=== PATIENT | female | born 1935 | race Caucasian/White ===

== ENCOUNTER 2016-10-20 00:31 | Emergency (ER) | payer OTHER, BC ==
[~2016-10-20] VITALS: Ht 157.5 cm; Wt 82.3 kg
[2016-10-20] VITALS (7 sets, daily range): BP systolic 144–182; BP diastolic 81–106; PULSE 92–100; TEMP 36.4–36.7; O2SAT 95–98; Ht 157.5 cm; Wt 82.3 kg
[~2016-10-20 00:31] MED LIST: ADVIN10/60 INH; ALBU1AER9; AMB10 PO; ASPCH81 PO; ATV5X PO; BUPR150T47 PO; ERGO1CAP35 PO; IBAN150T PO; MECL1TAB42 PO; NRV5 PO; ONDA4TAB46 PO; OXYC-57 PO; PRLSR20 PO; SIMV20TA2 PO; WARF2TAB PO; [UNRECOGNIZED DRUG - OTHER] PO
[2016-10-20] MEDS ORDERED: SODIUM CHLORIDE 0.9% 1000ML 1,000 ML IV STA (00:35)
[2016-10-20] MEDS ORDERED: ONDANSETRON INJ 2 MG/ML 2 ML VIAL IV STA (00:35)
[2016-10-20] MEDS ORDERED: HYDROmorphone INJ 0.5 MG/0.5 ML SYR IV STA ×2 (00:35→02:08)
--- NOTE | 2016-10-20 00:54 | EMERGENCY ROOM VISIT NOTE ---
History Report prepared by Cheryl: Johanna Silvestre Under the Supervision of: Dr. Ceasar Crawford M.D. First contact with patient: 00:34 Chief Complaint: FALL Stated Complaint: FALL/HIP PAIN History of Present Illness The patient is an 81 year old female who presents to the Emergency Room with complaints of a sudden fall that occurred prior to arrival. The patient states that she is unsure how she fell, but states that she could not get back up after the fall. She states that she had a left hip replacement done in May. The patient notes left hip and left leg pain since the fall. She denies any chest pain, abdominal pain, head trauma, or loss of consciousness. Source of History: patient Onset: prior to arrival Position: other (global) Quality: other (fall) Timing: other (sudden) Associated Symptoms: No LOC, No abdominal pain, No chest pain Note: Associated Symptoms: Left hip and left leg pain Review of Systems See HPI for pertinent positives & negatives. A total of 10 systems reviewed and were otherwise negative. Past Medical & Surgical Medical Problems: (1) Aortic valve stenosis (2) Carotid stenosis (3) CKD (chronic kidney disease), stage III (4) COPD (chronic obstructive pulmonary disease) (5) Dyslipidemia (6) GERD (gastroesophageal reflux disease) (7) HTN (hypertension) (8) Osteoporosis Surgical Problems: (1) H/O hernia repair (2) H/O laminectomy (3) History of cataract surgery (4) History of hysterectomy (5) S/P cholecystectomy (6) S/P tonsillectomy and adenoidectomy (7) Status post total hip replacement, right Family History Noncontributory secondary to age Social History Smoking Status: Former Smoker Alcohol Use: none Marital Status: Housing Status: lives with significant other Occupation Status: retired Current/Historical Medications Scheduled Amlodipine (Norvasc), 5 MG PO DAILY Aspirin (Aspirin Ec), 81 MG PO DAILY Azithromycin (Zithromax Z-Kiet), PO UD Bupropion (Wellbutrin Sr), 150 MG PO BID Ergocalciferol (Vitamin D 99284 Unit), 50,000 UNIT PO WK Fluticasone Prop/Salmeterol (Advair Diskus 100/50 60 Dose), 1 PUFFS INH BID Ibandronate Sodium (Boniva), 150 MG PO MONTHLY Multiple Vitamins W/ Minerals (Preservision Areds 2), 1 DOSE PO DAILY Omeprazole (Prilosec), 20 MG PO DAILY Simvastatin (Zocor), 20 MG PO QPM Scheduled PRN Albuterol Hfa (Ventolin Hfa), 2 PUFFS INH Q4 PRN for COUGH/SOB/WHEEZE Amoxicillin (Amoxil), 4 CAP PO UD PRN for 1 HR PRIOR TO DENTAL EXAM Diclofenac Sod (Voltaren), 1 APPLN TOP BID PRN for Pain Hydrocodone/Acetaminophen 5MG/325MG ([place] 5MG/325MG), 1-2 TABLETS PO Q6 PRN for Pain Lorazepam (Lorazepam), 1-2 TABS PO TID PRN for Anxiety Meclizine Hcl (Meclizine Hcl), 25 MG PO TID PRN for Dizziness or Vertigo Ondansetron Hcl (Zofran), 4 MG PO BID PRN for Nausea Zolpidem Tartrate (Ambien), 10 MG PO HS PRN for Sleep Allergies Coded Allergies: Sulfa Antibiotics (Verified Allergy, Mild, "SULFA DRUGS": UNKNOWN, 10/20/16) Atenolol (Verified Allergy, Unknown, RASH AND ITCHING-TAKES TOPROL-XL AT HOME, 10/20/16) Lisinopril (Unverified Adverse Reaction, Unknown, COUGH, 10/20/16) Physical Exam Vital Signs Date Time Temp Pulse Resp B/P Pulse Ox O2 Delivery O2 Flow Rate FiO2 10/20/16 06:07 88 10/20/16 05:33 90 18 104/71 95 Nasal Cannula 4.0 10/20/16 03:23 101 20 133/91 93 Nasal Cannula 4.0 10/20/16 02:58 100 10/20/16 02:30 36.4 98 18 144/85 97 Nasal Cannula 4.0 10/20/16 02:28 94 16 144/85 98 Nasal Cannula 4.0 10/20/16 02:23 94 14 153/106 98 Nasal Cannula 10/20/16 02:20 10/20/16 02:17 100 14 147/99 97 Nasal Cannula 4.0 10/20/16 02:02 36.7 96 20 174/81 95 Nasal Cannula 4.0 10/20/16 01:58 96 18 159/87 94 Nasal Cannula 2.0 10/20/16 00:46 36.7 88 18 210/108 93 Room Air 10/20/16 00:45 87 Physical Exam GENERAL: Patient is in moderate distress, uncomfortable appearing. HEENT: No acute trauma, normocephalic atraumatic, mucous membranes moist, no nasal congestion, no scleral icterus. NECK: No stridor, no adenopathy, no meningismus, trachea is midline. LUNGS: No dyspnea. Clear to auscultation and equal bilaterally. No wheeze, no rhonchi. HEART: Regular rate and rhythm. No murmurs, rubs, gallops appreciated. ABDOMEN: Soft, nontender, bowel sounds positive, no masses appreciated, no peritonitis. BACK: No midline tenderness, no CVA tenderness EXTREMITIES: Shortened, internally rotated left leg. Tenderness to palpation of mid left thigh. Strong pulses bilateral feet. Mild tenderness over left hip. NEUROLOGIC: Alert and oriented, no acute motor or sensory deficits, no focal weakness, cranial nerves grossly intact. SKIN: No rash, no jaundice, no diaphoresis., Medical Decision & Procedures ER Provider Diagnostic Interpretation: 3 view left femur: prosthetic hip dislocation, no fracture, no foreign body other than hip. 1 view pelvis. No fracture, left hip dislocation 1 view chest: No effusion, no infiltrate, mildly enlarged cardiac border, similar to previous chest x-ray. Laboratory Results 10/20/16 00:42 Red Blood Count 4.59, Mean Corpuscular Volume 93.5, Mean Corpuscular Hemoglobin 30.5, Mean Corpuscular Hemoglobin Concent 32.6, Mean Platelet Volume 10.9, Neutrophils (%) (Auto) 63.3, Lymphocytes (%) (Auto) 16.9, Monocytes (%) (Auto) 13.7, Eosinophils (%) (Auto) 5.2, Basophils (%) (Auto) 0.6, Neutrophils # (Auto ) 4.24, Lymphocytes # (Auto) 1.13, Monocytes # (Auto) 0.92, Eosinophils # (Auto ) 0.35, Basophils # (Auto) 0.04 10/20/16 00:42 Test 10/20/16 00:42 White Blood Count 6.70 K/uL (4.8-10.8) Red Blood Count 4.59 M/uL (4.2-5.4) Hemoglobin 14.0 g/dL (12.0-16.0) Hematocrit 42.9 % (37-47) Mean Corpuscular Volume 93.5 fL (80-100) Mean Corpuscular Hemoglobin 30.5 pg (25-34) Mean Corpuscular Hemoglobin Concent 32.6 g/dl (32-36) Platelet Count 163 K/uL (130-400) Mean Platelet Volume 10.9 fL (7.4-10.4) Neutrophils (%) (Auto) 63.3 % Lymphocytes (%) (Auto) 16.9 % Monocytes (%) (Auto) 13.7 % Eosinophils (%) (Auto) 5.2 % Basophils (%) (Auto) 0.6 % Neutrophils # (Auto) 4.24 K/uL (1.4-6.5) Lymphocytes # (Auto) 1.13 K/uL (1.2-3.4) Monocytes # (Auto) 0.92 K/uL (0.11-0.59) Eosinophils # (Auto) 0.35 K/uL (0-0.5) Basophils # (Auto) 0.04 K/uL (0-0.2) RDW Standard Deviation 50.0 fL (36.4-46.3) RDW Coefficient of Variation 14.7 % (11.5-14.5) Immature Granulocyte % (Auto) 0.3 % Immature Granulocyte # (Auto) 0.02 K/uL (0.00-0.02) Prothrombin Time 10.3 SECONDS (9.0-12.0) Prothromb Time International Ratio 1.0 (0.9-1.1) Activated Partial Thromboplast Time 25.4 SECONDS (21.0-31.0) Partial Thromboplastin Ratio 1.0 Anion Gap 8.0 mmol/L (3-11) Est Creatinine Clear Calc Drug Dose 34.3 ml/min Estimated GFR () 44.9 Estimated GFR (Non- 38.7 BUN/Creatinine Ratio 20.7 (10-20) Calcium Level 8.9 mg/dl (8.5-10.1) Troponin I < 0.015 ng/ml (0-0.045) Laboratory results as reviewed by me. Medications Administered Medications (Trade) Dose Ordered Sig/John Route Start Time Stop Time Status Last Admin Dose Admin Hydromorphone HCl (Dilaudid Inj) 0.5 mg NOW STAT IV 10/20/16 00:35 10/20/16 00:38 DC 10/20/16 00:56 0.5 MG Ondansetron HCl 4 mg 4 mg NOW STAT IV 10/20/16 00:35 10/20/16 00:38 DC 10/20/16 00:55 4 MG Sodium Chloride (Nss 1000ml) 1,000 ml @ 999 mls/hr Q1H1M STAT IV 10/20/16 00:35 10/20/16 01:35 DC 10/20/16 00:56 999 MLS/HR Hydromorphone HCl (Dilaudid Inj) 1 mg NOW STAT IV 10/20/16 01:28 10/20/16 01:29 DC 10/20/16 01:32 1 MG Propofol (Diprivan Iv Emulsion 20ml Vial) 200 mg STK-MED ONCE IV 10/20/16 01:57 10/20/16 01:58 DC 10/20/16 02:18 50 MG Hydromorphone HCl (Dilaudid Inj) 0.5 mg NOW STAT IV 10/20/16 02:08 10/20/16 02:09 DC 10/20/16 02:13 0.5 MG Oxycodone HCl (Roxicodone Immediate Rel 5MG Home Pack) 1 homepack UD ONCE PO 10/20/16 07:00 10/20/16 07:01 DC 10/20/16 06:52 1 HOMEPACK Procedure Procedural Sedation Indication: Left prosthetic hip dislocation. Last Ate: 5pm - >8hrs ago Previous issues with sedation: none Snore: mild Emergent: Yes ASA: 2 Mallampati: 2+ Dentures: none Time Out: 02:18am Time Recovered: 02:29 Total time: Including pre-sedation and post 30 minutes. Written consent was obtained after the risks and benefits were explained to the patient, including, but not limited to aspiration, allergic reaction, breathing difficulties, cardiac complications, vomiting, pain, event recall, bleeding, and /or infection. Pre-sedation examination and paperwork completed. The patient was on 100% oxygen via NRB prior to the procedure. Continuos end tidal CO2 monitoring, pulse oximetry, and cardiac monitoring were utilized. Suction, airway equipment, medications, respiratory equipment, and appropriate personnel were prepared prior to the initiation of the procedure. A time out was taken. Sedation was achieved utilizing 50 mg of propofol. After I observed the patient had reached the appropriate level of sedation the main procedure was performed without complication. Sedation was discontinued and the monitoring continued. The patient recovered quickly from the effects of the medication without complication or adverse event. Discussed at length post sedation instructions with patient. There were no complications during procedure. ED Course 0033: The patient was evaluated in room B2. A complete history and physical exam was performed. 0035: Ordered Sodium Chloride 1000 ml @ 999 mls/hr IV, Zofran Inj 4 mg IV, Dilaudid Inj 0.5 mg IV. 0128: Ordered Dilaudid Inj 1 mg IV. 0146: I discussed the patients case with Dr. Matosn, Orthopedics. He states that he will take care of the patient. 0150: I reevaluated the patient and she is doing well. She verbalized agreement with the treatment plan. 0157: Ordered Propofol 200 mg IV. 0208: Ordered Dilaudid Inj 0.5 mg IV. 0215: The patient was moved into B1 to have the hip reduction performed. I performed the conscious sedation at this time while Dr. Matson, Orthopedics reduced the patients hip. See procedure note for further detail. 0237: I reevaluated the patient and she is feeling much better and in no distress. 0646: I reevaluated the patient. She is awake and alert. I discussed all the exam findings with her and I discussed the treatment plan. She verbalized complete understanding and agreement. She is happy to go home whenever her arrives. Dr. Matson agrees that the patient is okay to go home after evaluation. 0700: Ordered Oxycodone HCl 1 homepack PO. Medical Decision Differential: Fracture, Dislocation, Cellulitis, Septic Joint, Ligamentous Injury, Effusion, DVT, amongst other pathologies entertained. 81 yr old female arrives with acute left thigh pain and clear deformity at hip s /p fall this evening. No other injuries. Labs/Cxr/ekg clear. Left prosthetic hip dislocation by imaging without other fracture. Last ate 8+ hours ago. No previous sedation issues. Discussed at length sedation risks and she agrees. Dr Matson in to see patient and did left hip reduction while I sedated patient. No complications during sedation. She was awake, alert and talking post sedation without issue and feeling much improved. Recovered in ED overnight as patient has no ride home. No issues overnight and breathing comfortable. Discussed outpatient follow up with Ortho in the next week. Consults Time Called: 013 Consulting Physician: Dr. Matson, Orthopedics Returned Call: 0146 I discussed the patients case with Dr. Matson, Orthopedics. He states that he will take care of the patient. Impression Primary Impression: Hip dislocation, left Additional Impressions: Fall Procedural Sedation Scribe Attestation The scribe's documentation has been prepared under my direction and personally reviewed by me in its entirety. I confirm that the note above accurately reflects all work, treatment, procedures, and medical decision making performed by me. Departure Information Dispostion Home / Self-Care Referrals Klaus Douglas M.D. (PCP) Forms HOME CARE DOCUMENTATION FORM, IMPORTANT VISIT INFORMATION Patient Instructions ED Hip Replace Dislocation Reduc, My [facility], Sedation Procedural Additional Instructions Your left hip was placed back without difficulty. Please follow up with Dr Mckeon in 1 week. Call his office for appointment. You have received a narcotic pain medication to have at home. These medications may cause drowsiness and should not be used with other sedative medications. If taken plan to rest and sleep. Do not drive, drink alcohol, perform dangerous activities, nor make important decisions after taking these medications. [facility]CI use or inappropriate use may lead to addiction. Problem Qualifiers Primary Impression: Hip dislocation, left Encounter type: initial encounter Qualified Codes: S73.005A - Unspecified dislocation of left hip, initial encounter Additional Impressions: Fall Encounter type: initial encounter Qualified Codes: W19.XXXA - Unspecified fall, initial encounter
[2016-10-20 00:57] LABS: BASO % 0.6 %; BASO ABS # 0.04 K/uL (0-0.2); COMPLETE YES; EOS % 5.2 %; HEMATOCRIT 42.9 % (37-47); IG% 0.3 %; LYMPH % 16.9 %; LYMPH ABS # 1.13 K/uL (1.2-3.4); MEAN CELL VOLUME 93.5 fL (80-100); MEAN CORPUSCULAR HEMOGLOBIN 30.5 pg (25-34); MEAN CORPUSCULAR HGB CONC 32.6 g/dl (32-36); MEAN PLATELET VOLUME 10.9 fL (7.4-10.4); MONO % 13.7 %; NEUT % 63.3 %; PLATELET COUNT 163 K/uL (130-400); RED BLOOD COUNT 4.59 M/uL (4.2-5.4)
[2016-10-20 01:07] LABS: PROTHROMBIN TIME (PATIENT) 10.3 SECONDS (9.0-12.0)
[2016-10-20 01:14] LABS: BLOOD UREA NITROGEN 27 mg/dl (7-18); BUN/CREATININE RATIO 20.7 (10-20); CALCIUM 8.9 mg/dl (8.5-10.1); CARBON DIOXIDE 29 mmol/L (21-32); CHLORIDE 107 mmol/L (98-107); GLUCOSE 136 mg/dl (70-99); POTASSIUM 4.2 mmol/L (3.5-5.1); SODIUM 144 mmol/L (136-145)
[2016-10-20] MEDS ORDERED: HYDROmorphone INJ 1 MG/ML SYR IV STA (01:28)
[2016-10-20] MEDS ORDERED: PROPOFOL IV EMULSION 10 MG/ML 100 ML VIAL IV ONE (01:55)
[2016-10-20] MEDS ORDERED: PROPOFOL IV EMULSION 10 MG/ML 20 ML VIAL IV ONE (01:57)
[2016-10-20] MEDS ORDERED: VNTHFA/IN INH (01:58)
[2016-10-20] MEDS ORDERED: ZOLP10TA PO (01:59)
[2016-10-20] MEDS ORDERED: ERGO500037 PO (01:59)
[2016-10-20] MEDS ORDERED: BUPR-79 PO (01:59)
[2016-10-20] MEDS ORDERED: ASPI81TA28 PO (01:59)
[2016-10-20] MEDS ORDERED: AMLO-114 PO (01:59)
[2016-10-20] MEDS ORDERED: HYDR-5688 PO (02:00)
[2016-10-20] MEDS ORDERED: MULT60CA PO (02:03)
[2016-10-20] MEDS ORDERED: AZITTAB PO (02:04)
[2016-10-20] MEDS ORDERED: AMOX500C3 PO (02:05)
[2016-10-20] MEDS ORDERED: VLTG TOP (02:06)
--- NOTE | 2016-10-20 02:40 | ORTHOPEDIC CONSULTATION ---
DATE OF CONSULTATION: 10/20/2016 I was asked to see this patient despite not being on-call. The patient of mine who tripped and fell at home who sustained a closed dislocation on her left total hip replacement. She was in her usual state of good health prior to that and had no issues with any prior instability. She is 81 years old. She states that she fell to the floor and had difficulty getting up, tried to rollover and swung her leg and pushed off and felt her leg dislocate. She does have a spine fusion as well so most of her movement comes through her hip. PAST MEDICAL HISTORY: Remarkable for aortic valve stenosis, carotid stenosis, chronic kidney disease, COPD, dyslipidemia, GERD, hypertension, history of hernia surgery, history of back fusion, cataract surgery, hysterectomy, cholecystectomy, bilateral hip placements, tonsillectomy and adenoidectomy. FAMILY HISTORY: Noncontributory. SOCIAL HISTORY: Reveals that she is a smoker, does not use alcohol. She is . She was transported by ambulance. PREADMISSION MEDICATIONS: Include Advair Diskus, Boniva, Prilosec, Zocor, and Coumadin. P.r.n. is Ventolin, lorazepam, meclizine and Zofran. ALLERGIES: SULFA, ATENOLOL, LISINOPRIL. PHYSICAL EXAMINATION: VITAL SIGNS: Stable. ORTHOPEDIC: Exam reveals femoral sciatic nerve to be intact. Hip is dislocated superolaterally. SKIN: Healthy. IMAGING: X-rays are reviewed revealing no obvious fracture. ASSESSMENT: Closed traumatic induced hip dislocation from fall at home. At this point in time, we will try conscious sedation per ER physician and closed reduction by me. Consent obtained on the conscious sedation permit, added closed reduction to that visualized with ED nurse.
--- NOTE | 2016-10-20 02:43 | PROGRESS NOTE ---
DATE: 10/20/2016 Makenna Harris is in the ER. Under conscious sedation by ER attending, Dr. Crawford, the left hip was easily reduced by longitudinal traction, adduction, internal rotation, and then it reduced and then external rotation. The hip was stable to 90 degrees abduction, internal and external rotation, log rolling. Post-reduction AP pelvis and hips revealed concentric reduction of the implant. At this point in time, due to her age and due to her comorbidities, she will be observed in the ER until the morning. Will, however, have the knee immobilizer for several weeks and then follow up with me in the office in a week. Weightbearing to tolerance. Pillow between the knees.
[2016-10-20] MEDS ORDERED: OXYCODONE IR HOME PACK PO ONE (07:00)
--- NOTE | 2016-10-20 07:13 | PROGRESS NOTE ---
DATE: 10/20/2016 HISTORY OF PRESENT ILLNESS: The patient seen in the ER roughly 6:45 a.m. At that point in time, she was resting comfortably. She notes she has no major hip pain, has some minor achiness around the muscles. Neurovascularly denies any numbness or tingling. She denies shortness of breath, fever, chills, nausea or vomiting. PHYSICAL EXAMINATION: Vital signs are stable. She is afebrile. Neurovascular check femoral sciatic nerve is excellent. Hip range of motion is good, active and passive. The hip is stable. ASSESSMENT AND PLAN: Traumatic induced left total hip arthroplasty dislocation. At this point in time, there is no obvious fracture. Hip appears to be stable. She will be discharged with a knee immobilizer and sleep with a pillow between her knees, can be weightbearing to tolerance. She will follow up with me in roughly 2 weeks. The patient advised concerning any issues to give us a call. The patient is upset with herself for tripping and falling; however, at this point in time, I told her that things look good and hopefully she will not have another episode as long as she is careful. BENNIE
--- NOTE | 2016-10-20 07:29 | DIAGNOSTIC IMAGING REPORT ---
SINGLE VIEW CHEST CLINICAL HISTORY: Fall. FINDINGS: An AP, portable, supine chest radiograph is compared to study dated 05/25/2016. The examination is degraded by portable technique and patient rotation. The cardiomediastinal silhouette is unremarkable. There is atherosclerotic calcification of the thoracic aorta. Chronic interstitial thickening is similar to previous. There is mild bibasilar atelectasis. No airspace consolidation or large pleural effusion is seen. No pneumothorax is identified. The skeletal structures are osteopenic. The bony thorax is grossly intact. IMPRESSION: No acute cardiopulmonary abnormality. Electronically signed by: Riley Hernandez M.D. 10/20/2016 7:28 AM Dictated Date/Time: 10/20/2016 7:27 AM
--- NOTE | 2016-10-20 08:07 | DIAGNOSTIC IMAGING REPORT ---
PELVIS 1 OR 2 VIEW ROUTINE CLINICAL HISTORY: left hip pain trauma COMPARISON STUDY: 06/06/2016 FINDINGS: There are postsurgical changes in the lumbar spine with evidence of a prior laminectomy and spinal fusion. There are bilateral total hip arthroplasties. There is superior dislocation of the left femoral prosthesis. IMPRESSION: Dislocated total left hip arthroplasty. Electronically signed by: Samuel Gonzalez M.D. 10/20/2016 8:05 AM Dictated Date/Time: 10/20/2016 8:04 AM
--- NOTE | 2016-10-20 08:11 | DIAGNOSTIC IMAGING REPORT ---
PELVIS 1 OR 2 VIEW ROUTINE CLINICAL HISTORY: Left hip dislocation status post reduction COMPARISON STUDY: 10/20/2016 FINDINGS: There are postsurgical changes of bilateral total hip arthroplasties. There is been interval reduction of the previous identified left hip dislocation. Postsurgical changes are present within the lumbar spine. IMPRESSION: Interval reduction of the previously identified dislocated left hip arthroplasty Electronically signed by: Samuel Gonzalez M.D. 10/20/2016 8:10 AM Dictated Date/Time: 10/20/2016 8:09 AM
--- NOTE | 2016-10-20 08:31 | DIAGNOSTIC IMAGING REPORT ---
LEFT FEMUR 2 VIEWS ROUTINE CLINICAL HISTORY: Left thigh pain status post trauma COMPARISON: AP pelvis dated 08/07/2016 DISCUSSION: There is superior dislocation of a total left hip arthroplasty. No acute femoral fractures are visualized. IMPRESSION: Dislocated total left hip arthroplasty Electronically signed by: Samuel Gonzalez M.D. 10/20/2016 8:30 AM Dictated Date/Time: 10/20/2016 8:28 AM
== END 2016-10-20 08:32 | disposition home or self-care (01) ==
LOC: EDBD 00:31 → C.EDB 00:34
DX: S73.005A Unspecified dislocation of left hip, initial encounter (principal); W19.XXXA Unspecified fall, initial encounter; I35.0 Nonrheumatic aortic (valve) stenosis; N18.3 Chronic kidney disease, stage 3 (moderate); J44.9 Chronic obstructive pulmonary disease, unspecified; I12.9 Hypertensive chronic kidney disease with stage 1 through stage 4 chronic kidney disease, or unspecified chronic kidney disease; K21.9 Gastro-esophageal reflux disease without esophagitis; M81.0 Age-related osteoporosis without current pathological fracture; Z96.641 Presence of right artificial hip joint; Z90.49 Acquired absence of other specified parts of digestive tract; Z87.891 Personal history of nicotine dependence; Z79.82 Long term (current) use of aspirin

== ENCOUNTER → 2017-01-15 | Outpatient (CLI) | payer OTHER, BC ==
[~2017-01-15] MED LIST changes: -ALBU1AER9; -AMB10 PO; +AMLO-114 PO; +AMOX500C3 PO; -ASPCH81 PO; +ASPI81TA28 PO; +AZITTAB PO; +BUPR-79 PO; -BUPR150T47 PO; -ERGO1CAP35 PO; +ERGO500037 PO; +HYDR-5688 PO; +MULT60CA PO; -NRV5 PO; -OXYC-57 PO; +VLTG TOP; +VNTHFA/IN INH; -WARF2TAB PO; +ZOLP10TA PO; -[UNRECOGNIZED DRUG - OTHER] PO
== END | disposition home or self-care (01) ==
LOC: C.RDSM 10:30
PROVIDERS: ATTEND Physical Medicine & Rehabilitation Sports Medicine
DX: Z96.643 Presence of artificial hip joint, bilateral (principal)

== ENCOUNTER → 2017-01-30 | Outpatient (CLI) | payer OTHER, BC ==
--- NOTE | 2017-01-30 16:19 | MAMMOGRAPHY REPORT ---
BILATERAL DIGITAL SCREENING MAMMOGRAM WITH CAD: 01/30/2017 CLINICAL HISTORY: Routine screening. Patient has no complaints. TECHNIQUE: Bilateral CC and MLO views were obtained. Current study was also evaluated with a Comput er Aided Detection (CAD) system. COMPARISON: Comparison is made to exams dated: 01/28/2016 mammogram, 01/26/2015 mammogram, 01/20/2014 m ammogram, 01/09/2012 mammogram, 01/04/2011 mammogram, and 12/31/2009 mammogram - [facility]. BREAST COMPOSITION: There are scattered areas of fibroglandular density in both breasts. FINDINGS: The parenchymal pattern is similar to prior mammograms. There are stable benign-appearin g calcifications within the right breast. No developing mass, architectural distortion or cluster o f suspicious microcalcifications is seen in either breast. IMPRESSION: ACR BI-RADS CATEGORY 2: BENIGN There is no mammographic evidence of malignancy. A 1 year screening mammogram is recommended. The p atient will receive written notification of the results. Approximately 10% of breast cancers are not detected with mammography. A negative mammographic repor t should not delay biopsy if a clinically suggestive mass is present. Cinthia Salamanca M.D. ay/:01/30/2017 15:53:55 Veneer Redrier: Eleonora Irizarry, [facility] letter sent: Normal 1/2 BI-RADS Code: ACR BI-RADS Category 2: Benign
== END | disposition home or self-care (01) ==
LOC: C.MAMM 08:56
PROVIDERS: ATTEND Family Medicine
DX: Z12.31 Encounter for screening mammogram for malignant neoplasm of breast (principal)

== ENCOUNTER → 2017-10-29 | Outpatient (CLI) | payer OTHER, BC | END | disposition home or self-care (01) | LOC: C.RDSM 08:20 | PROVIDERS: ATTEND Physical Medicine & Rehabilitation Sports Medicine | DX: Z47.1 Aftercare following joint replacement surgery (principal); Z96.643 Presence of artificial hip joint, bilateral ==

== ENCOUNTER → 2017-12-04 | Outpatient (CLI) | payer OTHER, BC ==
--- NOTE | 2017-12-04 10:25 | DIAGNOSTIC IMAGING REPORT ---
L PELVIS UNILATERAL HIP 1 VIEW CLINICAL HISTORY: LEFT HIP PAIN pain COMPARISON: 08/22/2016 DISCUSSION: Patient has bilateral total hip arthroplasties. AP projection shows good contact between metallic prosthesis and underlying bone. The abduction view of the left hip suggests a subtle lucency about the femoral prosthetic. This is minimally increased in the prior study of 08/22/2016. This potentially indicates early partial loosening. There is no evidence for soft tissue swelling. IMPRESSION: Total left hip prosthetic demonstrate a slight increase in lucency about the prosthetic in abduction view. Possibility of early loosening should be considered. The above report was generated using voice recognition software. It may contain grammatical, syntax or spelling errors. Electronically signed by: Olu Gotti M.D. 12/04/2017 10:23 AM Dictated Date/Time: 12/04/2017 10:21 AM
== END | disposition home or self-care (01) ==
LOC: C.RDSM 10:11
PROVIDERS: ATTEND Physician Assistant
DX: Z96.643 Presence of artificial hip joint, bilateral (principal)

== ENCOUNTER → 2018-02-01 | Outpatient (CLI) | payer OTHER, BC ==
--- NOTE | 2018-02-01 15:14 | MAMMOGRAPHY REPORT ---
BILATERAL DIGITAL SCREENING MAMMOGRAM TOMOSYNTHESIS WITH CAD: 02/01/2018 CLINICAL HISTORY: Routine screening. Patient has no complaints. TECHNIQUE: Breast tomosynthesis in addition to standard 2D mammography was performed. Current study was also evaluated with a Computer Aided Detection (CAD) system. COMPARISON: Comparison is made to exams dated: 01/30/2017 mammogram, 01/28/2016 mammogram, 01/26/2015 m ammogram, 01/20/2014 mammogram, 01/14/2013 mammogram, and 01/09/2012 mammogram - [facility]. BREAST COMPOSITION: There are scattered areas of fibroglandular density in both breasts. FINDINGS: No suspicious masses, calcifications, or areas of architectural distortion are noted in ei ther breast. There has been no significant interval change compared to prior exams. Bilateral benign -appearing calcifications are not significantly changed. IMPRESSION: ACR BI-RADS CATEGORY 2: BENIGN There is no mammographic evidence of malignancy. A 1 year screening mammogram is recommended. The pa tient will receive written notification of the results. Approximately 10% of breast cancers are not detected with mammography. A negative mammographic report should not delay biopsy if a clinically suggestive mass is present. Saray Garcia M.D. /:02/01/2018 12:29:35 Shirt Ironer: Love STERLING)(M), [facility] letter sent: Normal 1/2 BI-RADS Code: ACR BI-RADS Category 2: Benign
== END | disposition home or self-care (01) ==
LOC: C.MAMM 08:55
PROVIDERS: ATTEND Family Medicine
DX: Z12.31 Encounter for screening mammogram for malignant neoplasm of breast (principal)

== ENCOUNTER 2018-12-31 21:39 | Observation (INO) ==
[2018-12-31] MEDS ORDERED: NITROGLYCERIN SL 0.4 MG/TAB TAB ONE (22:23)
--- NOTE | 2018-12-31 22:57 | XRay Report ---
SINGLE VIEW CHEST CLINICAL HISTORY: Atypical chest pain. FINDINGS: An AP, portable, upright chest radiograph is compared to study dated 03/05/2018 and correlat ed with chest CT dated 11/04/2018. The examination is degraded by portable technique and patient rotat ion. The cardiomediastinal silhouette is unremarkable, noting atherosclerotic calcification of the t horacic aorta. Chronic interstitial thickening is similar to previous. Patchy airspace consolidation is seen at both lung bases. There is mild elevation of left hemidiaphragm. No large pleural effusion is identified. No pneumothorax is seen. The skeletal structures are osteopenic. The bony thorax is gr ossly intact. IMPRESSION: Patchy airspace consolidation is seen at both lung bases. Correlate clinically for eviden ce of pneumonia/aspiration pneumonitis. Radiographic follow-up to resolution is recommended. Electronically signed by: Riley Hernandez M.D. 12/31/2018 10:55 PM
[2018-12-31 23:06] LABS: Basophils # (auto) 0.06 K/uL (0-0.2); Basophils % (auto) 0.7 %; Eosinophils # (auto) 0.22 K/uL (0-0.5); Eosinophils % (auto) 2.4 %; Hemoglobin 13.6 g/dL (12.0-16.0); Immature Granulocytes # (auto) 0.04 K/uL (0.00-0.02); Immature Granulocytes % (auto) 0.4 %; Lymphocytes # (auto) 1.07 K/uL (1.2-3.4); Lymphocytes % (auto) 11.8 %; Mean Corpuscular Hgb Conc 32.4 g/dL (32-36); Mean Corpuscular Volume 97.2 fL (80-100); Mean Platelet Volume 10.9 fL (7.4-10.4); Monocytes # (auto) 0.93 K/uL (0.11-0.59); Monocytes % (auto) 10.3 %; Neutrophils # (auto) 6.71 K/uL (1.4-6.5); Neutrophils % (auto) 74.4 %; Platelet Count 187 K/uL (130-400); RDW Coefficient of Variation 13.9 % (11.5-14.5); RDW Standard Deviation 49.7 fL (36.4-46.3); Red Blood Count 4.32 M/uL (4.2-5.4); White Blood Count 9.03 K/uL (4.8-10.8)
[2018-12-31 23:26] LABS: Alanine Aminotransferase 15 U/L (12-78); Albumin Level 3.3 gm/dl (3.4-5.0); Aspartate Aminotransferase 12 U/L (15-37); BUN Creatinine Ratio 18.5 (10-20); Blood Urea Nitrogen 28 mg/dl (7-18); Calcium 9.1 mg/dl (8.5-10.1); Carbon Dioxide 27 mmol/L (21-32); Chloride 110 mmol/L (98-107); Creatinine Clr Calc Pharmacy 28.6 ml/min; Est GFR (African American) 37.2; Est GFR (Non-African American) 32.1; Glucose 168 mg/dl (70-99); Potassium 4.5 mmol/L (3.5-5.1); Sodium 143 mmol/L (136-145)
[2018-12-31 23:30] LABS: Albumin Globulin Ratio 0.9 (0.9-2); Alkaline Phosphatase 91 U/L (45-117); Bilirubin,Total 0.2 mg/dl (0.2-1); Globulin 3.5 gm/dl (2.5-4.0); Total Protein 6.8 gm/dl (6.4-8.2); Troponin I < 0.015 ng/ml (0-0.045)
[2019-01-01] MEDS ORDERED: ONDANSETRON INJ 2 MG/ML 2 ML VIAL IV STA (00:33)
--- NOTE | 2019-01-01 00:37 | Emergency Department Note ---
Entered by Steph Diamond acting as a scribe for Vincenzo Gallego DO History of Present Illness General Chief complaint: Chest Pain Stated complaint: CHEST PAIN, SOB Time Seen by Provider: 12/31/18 22:10 Source: patient History of Present Illness Onset (ago): hour(s) 3 Location: chest Radiation: extremity (left upper) Pain Consistency: + intermittent Maximum Pain Intensity: 5 Associated symptoms: + diaphoresis, + nausea/vomiting (positive nausea; negative vomiting ) and + shortness of breath Treatments prior to arrival: other (breathing treatment) The patient is a 83 year old female who presents to the Emergency Room with complaints of intermittent chest pain that began at 1900, 3 hours prior to arrival. The patient states that during these episodes, her pain radiates to her left arm, and she has shortness of breath, sweating, and nausea. The patient states that she used a breathing treatment prior to arrival for her symptoms. She states that she takes a baby aspirin regularly, and states that she took one today. The patient states that she had a cardiac catheterization within the past few years. Home Medications Home Medications Medication Instructions Recorded Confirmed Type amlodipine 10 mg PO DAILY 12/31/18 12/31/18 History aspirin 81 mg PO DAILY 12/31/18 12/31/18 History cholecalciferol (vitamin D3) 1,000 unit PO DAILY 12/31/18 12/31/18 History [Vitamin D3] cholecalciferol (vitamin D3) 5,000 unit PO DAILY 12/31/18 12/31/18 History [Vitamin D3] furosemide [Lasix] 20 mg PO DAILY 12/31/18 12/31/18 History hydrocodone-acetaminophen 1 tab PO Q6H PRN 12/31/18 12/31/18 History ibandronate [Boniva] 150 mg PO MONTHLY 12/31/18 12/31/18 History ipratropium-albuterol 3 ml INHALATION QID 12/31/18 12/31/18 History ipratropium-albuterol [Combivent 1 puff INHALATION QID 12/31/18 12/31/18 History Respimat] lorazepam 0.5 mg PO TID PRN 12/31/18 12/31/18 History meclizine 25 mg PO TID PRN 12/31/18 12/31/18 History multivitamin 1 tab PO DAILY 12/31/18 12/31/18 History ondansetron HCl [Zofran] 4 mg PO TID PRN 12/31/18 12/31/18 History simvastatin [Zocor] 20 mg PO PM 12/31/18 12/31/18 History zolpidem [Ambien] 10 mg PO HS 12/31/18 12/31/18 History Allergies Allergy/AdvReac Type Severity Reaction Status Date / Time Sulfa (Sulfonamide Allergy Mild "SULFA Verified 03/05/18 20:55 Antibiotics) DRUGS": UNKNOWN atenolol Allergy Unknown RASH AND Verified 03/05/18 20:55 ITCHING-TAKES TOPROL-XL AT HOME lisinopril AdvReac Unknown COUGH Unverified 03/05/18 20:55 Past Med/Surg History Medical History GERD (gastroesophageal reflux disease) (Chronic) Carotid stenosis (Chronic) COPD (chronic obstructive pulmonary disease) (Chronic) Osteoporosis (Chronic) CKD (chronic kidney disease), stage III (Chronic) Dyslipidemia (Chronic) Aortic valve stenosis (Chronic) HTN (hypertension) (Chronic) Surgical History H/O laminectomy (Chronic) History of hysterectomy (Chronic) H/O hernia repair (Chronic) Status post total hip replacement, right (Chronic) History of cataract surgery (Chronic) S/P tonsillectomy and adenoidectomy (Chronic) S/P cholecystectomy (Chronic) Social History Preferred Language: Latvian Feels Safe at Home: Yes Smoking Status: Never smoker Review of Systems See HPI for pertinent positives & negatives. and A total of 10 systems reviewed and were otherwise negative Physical Exam Vital Signs Vital Signs - 24 hr 12/31/18 21:39 12/31/18 23:28 01/01/19 00:39 Temperature 36.8 C Temperature Source Oral Sepsis Recent Fever Within 48 Hours No Sepsis Action Taken by Nursing No Action Required Pulse Rate 85 Pulse Rate [Finger] 79 80 Pulse Rhythm Regular Pulse Strength Normal Respiratory Rate 18 20 20 Respiratory Effort / Characteristics Non-Labored Spontaneous Non-Labored Non-Labored Respiratory Depth Normal Normal Normal Respiratory Pattern Regular Blood Pressure 195/102 H Blood Pressure [Right Arm] 164/86 H 143/63 H Blood Pressure Mean 133 Blood Pressure Mean [Right Arm] 112 89 Blood Pressure Position Sitting Pulse Oximetry 92 92 92 Oxygen Delivery Method Room Air Room Air Room Air 01/01/19 01:11 Temperature Temperature Source Sepsis Recent Fever Within 48 Hours Sepsis Action Taken by Nursing Pulse Rate Pulse Rate [Finger] 94 H Pulse Rhythm Pulse Strength Respiratory Rate 20 Respiratory Effort / Characteristics Respiratory Depth Respiratory Pattern Blood Pressure Blood Pressure [Right Arm] 130/65 Blood Pressure Mean Blood Pressure Mean [Right Arm] 86 Blood Pressure Position Pulse Oximetry 93 Oxygen Delivery Method Room Air CONSTITUTIONAL/VITAL SIGNS: Reviewed / noted above. GENERAL: Non-toxic in appearance. INTEGUMENTARY: Warm, dry, and [place]. HEAD: Normocephalic. EYES: without scleral icterus or trauma. ENT/OROPHARYNX: clear and moist. LYMPHADENOPATHY/NECK: Is supple without lymphadenopathy or meningismus. RESPIRATORY: Lungs clear and equal. CARDIOVASCULAR: Regular rate and rhythm. GI/ABDOMEN: Soft and nontender. No organomegaly or pulsatile mass. No rebound or guarding. Normal bowel sounds. EXTREMITIES: Warm and well perfused. BACK: No CVA tenderness. NEUROLOGICAL: Intact without focal deficits. PSYCHIATRIC: normal affect. MUSCULOSKELETAL: Normally developed with good muscle tone. Course 2218: Past medical records reviewed. The patient was evaluated in room B6, and a complete history and physical examination were performed. 0041: I discussed the case with Dr. [facility] who accepted the patient for further evaluation. Consultations Consultation #1: I discussed the case with Dr. [facility] who accepted the patient for further evaluation. Time: 00:41 Administered Medications Discontinued Medications Amlodipine Besylate (Norvasc) 10 mg PO NOW ONE Stop: 01/01/19 00:46 Last Admin: 01/01/19 01:30 Dose: 10 mg Documented by: [id number] Nitroglycerin (Nitrostat) Confirm Administered Dose 0.8 mg .ROUTE .STK-MED ONE Stop: 12/31/18 22:24 Last Admin: 12/31/18 22:35 Dose: 0.8 mg Documented by: [id number] Ondansetron HCl (Zofran) 4 mg IV NOW STA Stop: 01/01/19 00:34 Last Admin: 01/01/19 00:37 Dose: 4 mg Documented by: [id number] Medical Decision Making Differential Diagnosis the differential was considered includes acute myocardial infarction, acute coronary syndrome, myocarditis, pericarditis, pericardial effusions /tamponad, esophageal perforation, thoracic aortic dissection, pulmonary embolism, pneumonia, pneumothorax, pancreatitis, shingles, acute cholecystitis, perforated abdominal viscus. Medical Records Attestation: I reviewed the patient's medical records. Home Medications Current Medication List: was personally reviewed by me Laboratory Data Attestation: I reviewed the patient's lab results. Result diagrams: 12/31/18 22:53 12/31/18 22:53 Lab Results 12/31/18 12/31/18 12/31/18 Range/Units 22:53 22:53 22:53 WBC 9.03 (4.8-10.8) K/uL RBC 4.32 (4.2-5.4) M/uL Hgb 13.6 (12.0-16.0) g/dL Hct 42.0 (37-47) % MCV 97.2 (80-100) fL MCH 31.5 (25-34) pg MCHC 32.4 (32-36) g/dL RDW Std Deviation 49.7 H (36.4-46.3) fL RDW Coeff of [place] 13.9 (11.5-14.5) % Plt Count 187 (130-400) K/uL MPV 10.9 H (7.4-10.4) fL Immature Gran % (Auto) 0.4 % Neut % (Auto) 74.4 % Lymph % (Auto) 11.8 % [place] % (Auto) 10.3 % Eos % (Auto) 2.4 % Baso % (Auto) 0.7 % Immature Gran # (Auto) 0.04 H (0.00-0.02) K/uL Neut # (Auto) 6.71 H (1.4-6.5) K/uL Lymph # (Auto) 1.07 L (1.2-3.4) K/uL [place] # (Auto) 0.93 H (0.11-0.59) K/uL Eos # (Auto) 0.22 (0-0.5) K/uL Baso # (Auto) 0.06 (0-0.2) K/uL APTT 26.5 (21.0-31.0) Seconds PTT Ratio 1.0 Sodium 143 (136-145) mmol/L Potassium 4.5 (3.5-5.1) mmol/L Chloride 110 H (98-107) mmol/L Carbon Dioxide 27 (21-32) mmol/L Anion Gap 6.0 (3-11) BUN 28 H (7-18) mg/dl Creatinine 1.50 H (0.6-1.2) mg/dl Est Cr Clr Drug Dosing 28.6 ml/min Est GFR ( Amer) 37.2 Est GFR (Non-Af Amer) 32.1 BUN/Creatinine Ratio 18.5 (10-20) Glucose 168 H (70-99) mg/dl Calcium 9.1 (8.5-10.1) mg/dl Magnesium 2.2 (1.8-2.4) mg/dl Total Bilirubin 0.2 (0.2-1) mg/dl AST 12 L (15-37) U/L ALT 15 (12-78) U/L Alkaline Phosphatase 91 (45-117) U/L Troponin I < 0.015 (0-0.045) ng/ml Total Protein 6.8 (6.4-8.2) gm/dl Albumin 3.3 L (3.4-5.0) gm/dl Globulin 3.5 (2.5-4.0) gm/dl Albumin/Globulin Ratio 0.9 (0.9-2) Lipase 64 L (73-393) U/L TSH 2.470 (0.300-4.500) uIu/ml Imaging Data Radiologist's Impression: Radiology results as stated below per my review and the radiologist's interpretation: SINGLE VIEW CHEST CLINICAL HISTORY: Atypical chest pain. FINDINGS: An AP, portable, upright chest radiograph is compared to study dated and correlated with chest CT dated 11/04/2018. The examination is degraded by portable technique and patient rotation. The cardiomediastinal silhouette is unremarkable, noting atherosclerotic calcification of the thoracic aorta. Chronic interstitial thickening is similar to previous. Patchy airspace consolidation is seen at both lung bases. There is mild elevation of left hemidiaphragm. No large pleural effusion is identified. No pneumothorax is seen. The skeletal structures are osteopenic. The bony thorax is grossly intact. IMPRESSION: Patchy airspace consolidation is seen at both lung bases. Correlate clinically for evidence of pneumonia/aspiration pneumonitis. Radiographic follo w-up to resolution is recommended. Electronically signed by: Riley Hernandez M.D. 12/31/2018 10:55 PM ECG Data Attestation: I personally reviewed and interpreted this ECG as follows: Indication: chest pain Rate (beats per minute): 87 Rhythm: normal sinus Findings: no ST elevation and no ectopy Blood Pressure Blood Pressure Findings: Elevated blood pressure Blood Pressure Disposition: further management by hospitalist MDM Narrative This is an 83-year-old female who presents to the ED with a chief complaint of chest discomfort, bloated feeling in the epigastric area, nausea, hot flashes, shortness of breath and diaphoresis as well as some left arm pain. Her symptoms started at 7 PM tonight. She is watching TV at the time. She states that she still feels some tightness in her chest on her arrival here. She was given 2 nitroglycerin sublingual that improved her symptoms. She was also given 4 mg of IV Zofran. The patient's EKG shows a normal sinus rhythm without acute ischemic changes. Her CBC was normal, complete metabolic panel was unremarkable and troponin was negative. The patient does report having a previous cardiac catheterization that was reported to show some disease but nothing significant. She cannot recall when she had this cardiac catheterization. It may have been in the past few years. Because of the patient's history and risk factors, the patient was seen by the hospitalist for further inpatient evaluation and care. Impression & Plan Chest pain, precordial Discharge Plan Visit Data Chief Complaint: Chest Pain Stated Complaint: CHEST PAIN, SOB ED Provider: Vincenzo Gallego Discharge Problem: Chest pain, precordial Patient Disposition: Being Evaluated by Hospitalist Forms Stand Alone Forms: My [facility] Prescriptions Prescriptions: No Action ipratropium-albuterol 0.5 mg-3 mg(2.5 mg base)/3 mL Solution For Nebulization 3 ml INHALATION QID RF: 0 ondansetron HCl [Zofran] 4 mg Tablet 4 mg PO TID PRN (Reason: anxiety) RF: 0 lorazepam 0.5 mg Tablet 0.5 mg PO TID PRN (Reason: Anxiety) RF: 0 amlodipine 10 mg Tablet 10 mg PO DAILY RF: 0 simvastatin [Zocor] 20 mg Tablet 20 mg PO PM RF: 0 aspirin 81 mg Tablet,Chewable 81 mg PO DAILY RF: 0 furosemide [Lasix] 20 mg Tablet 20 mg PO DAILY RF: 0 zolpidem [Ambien] 10 mg Tablet 10 mg PO HS RF: 0 meclizine 25 mg Tablet,Chewable 25 mg PO TID PRN (Reason: Anxiety) RF: 0 multivitamin Tablet,Chewable 1 tab PO DAILY RF: 0 ibandronate [Boniva] 150 mg Tablet 150 mg PO MONTHLY RF: 0 cholecalciferol (vitamin D3) [Vitamin D3] 1,000 unit Tablet 1,000 unit PO DAILY RF: 0 cholecalciferol (vitamin D3) [Vitamin D3] 5,000 unit Tablet 5,000 unit PO DAILY RF: 0 hydrocodone-acetaminophen 2.5-325 mg Tablet 1 tab PO Q6H PRN (Reason: Pain) RF: 0 Combivent Respimat 20-100 mcg/actuation Mist 1 puff INHALATION QID RF: 0 Referrals Referrals: Klaus Douglas MD [Primary Care Provider] - The scribe's documentation has been prepared under my direction and personally reviewed by me in its entirety. I confirm that the note above accurately reflects all work, treatment, procedures, and medical decision making performed by me.
[2019-01-01] MEDS ORDERED: AMLODIPINE BESYLATE 5 MG TAB PO ONE (00:45)
[2019-01-01 01:04] LABS: Partial Thromboplastin Time 26.5 Seconds (21.0-31.0)
[2019-01-01 01:19] LABS: Magnesium 2.2 mg/dl (1.8-2.4)
--- NOTE | 2019-01-01 01:57 | History & Physical Report ---
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 for chest pain Check hemoglobin A1c DVT prophylaxis. Heparin subcu Full code History of Present Illness Chief Complaint: Chest pain Primary Care Provider: Klaus Douglas MD History obtained from patient, family, and records. Medical history significant for chronic diastolic dysfunction (TTE 55-59% July 2018), CAD, severe aortic stenosis, hypertension, hyperlipidemia, PVD, COPD, past tobacco abuse, CRI (baseline creatinine 1.4-1.5). Recent confinement October 2016 under Orthopedics service for left hip surgery. Patient was watching television last night when she experience substernal heaviness which later radiated to left arm accompanied by shortness of breath, diaphoresis and nausea. Partial relief with breathing treatment, patient denies cough symptoms however. May have had similar short-lived episodes in the past. At the ER, chest discomfort completely relieved by nitroglycerin. SBP at home 180s. Patient does not check her blood pressure at home. No unusual stress at home, denies dietary indiscretion. Allergies Allergy/AdvReac Type Severity Reaction Status Date / Time Sulfa (Sulfonamide Allergy Mild "SULFA Verified 03/05/18 20:55 Antibiotics) DRUGS": UNKNOWN atenolol Allergy Unknown RASH AND Verified 03/05/18 20:55 ITCHING-TAKES TOPROL-XL AT HOME lisinopril AdvReac Unknown COUGH Unverified 03/05/18 20:55 Home Medications Home Medications Medication Instructions Recorded Confirmed Type amlodipine 10 mg PO DAILY 12/31/18 12/31/18 History aspirin 81 mg PO DAILY 12/31/18 12/31/18 History cholecalciferol (vitamin D3) 1,000 unit PO DAILY 12/31/18 12/31/18 History [Vitamin D3] cholecalciferol (vitamin D3) 5,000 unit PO DAILY 12/31/18 12/31/18 History [Vitamin D3] furosemide [Lasix] 20 mg PO DAILY 12/31/18 12/31/18 History hydrocodone-acetaminophen 1 tab PO Q6H PRN 12/31/18 12/31/18 History ibandronate [Boniva] 150 mg PO MONTHLY 12/31/18 12/31/18 History ipratropium-albuterol 3 ml INHALATION QID 12/31/18 12/31/18 History ipratropium-albuterol [Combivent 1 puff INHALATION QID 12/31/18 12/31/18 History Respimat] lorazepam 0.5 mg PO TID PRN 12/31/18 12/31/18 History meclizine 25 mg PO TID PRN 12/31/18 12/31/18 History multivitamin 1 tab PO DAILY 12/31/18 12/31/18 History ondansetron HCl [Zofran] 4 mg PO TID PRN 12/31/18 12/31/18 History simvastatin [Zocor] 20 mg PO PM 12/31/18 12/31/18 History zolpidem [Ambien] 10 mg PO HS 12/31/18 12/31/18 History Past Med/Surg History Medical History GERD (gastroesophageal reflux disease) (Chronic) Carotid stenosis (Chronic) COPD (chronic obstructive pulmonary disease) (Chronic) Osteoporosis (Chronic) CKD (chronic kidney disease), stage III (Chronic) Dyslipidemia (Chronic) Aortic valve stenosis (Chronic) HTN (hypertension) (Chronic) Surgical History H/O laminectomy (Chronic) History of hysterectomy (Chronic) H/O hernia repair (Chronic) Status post total hip replacement, right (Chronic) History of cataract surgery (Chronic) S/P tonsillectomy and adenoidectomy (Chronic) S/P cholecystectomy (Chronic) Family History Other Stroke Social History Preferred Language: Lebanese Communication Ability: Effective Beliefs That Will Affect Care: None Current Living Situation: Spouse Other Information That Helps Us Care for You: No Feels Safe at Home: Yes Safety Concerns: Feels Safe At This Time Smoking Status: Former smoker Tobacco Type: cigarettes Hx Alcohol Use: No Hx Substance Use: No Review of Systems Review of Systems: As per HPI, all 10 systems reviewed, all other ROS negative Physical Exam Vital Signs (Past 24 Hours): Last Vital Signs Temp 36.8 C 12/31/18 21:39 Pulse 94 H 01/01/19 01:11 Resp 20 01/01/19 01:11 BP 130/65 01/01/19 01:11 Pulse Ox 93 01/01/19 01:11 Physical Exam: GENERAL: Comfortable, obese, occasionally speaks in phrases, no overt respiratory distress SKIN: Normal color, warm HEENT: Bespectacled, pink palpebral conjunctivae, no ptosis, dry buccal mucosa NECK : Supple, no tenderness CHEST : Decreased breath sounds, no tenderness HEART : RRR, systolic murmur ABDOMEN: Some distention, nontender EXTREMITIES : No LE swelling/tenderness, no other conspicuous deformities noted NEUROLOGIC : Coherent, no facial asymmetry, no other gross focality Results & Data Laboratory Results Laboratory Results WBC 9.03 K/uL (4.8-10.8) 12/31/18 22:53 RBC 4.32 M/uL (4.2-5.4) 12/31/18 22:53 Hgb 13.6 g/dL (12.0-16.0) 12/31/18 22:53 Hct 42.0 % (37-47) 12/31/18 22:53 MCV 97.2 fL (80-100) 12/31/18 22:53 MCH 31.5 pg (25-34) 12/31/18 22:53 MCHC 32.4 g/dL (32-36) 12/31/18 22:53 RDW Std Deviation 49.7 fL (36.4-46.3) H 12/31/18 22:53 RDW Coeff of [place] 13.9 % (11.5-14.5) 12/31/18 22:53 Plt Count 187 K/uL (130-400) 12/31/18 22:53 MPV 10.9 fL (7.4-10.4) H 12/31/18 22:53 Immature Gran % (Auto) 0.4 % 12/31/18 22:53 Neut % (Auto) 74.4 % 12/31/18 22:53 Lymph % (Auto) 11.8 % 12/31/18 22:53 [place] % (Auto) 10.3 % 12/31/18 22:53 Eos % (Auto) 2.4 % 12/31/18 22:53 Baso % (Auto) 0.7 % 12/31/18 22:53 Immature Gran # (Auto) 0.04 K/uL (0.00-0.02) H 12/31/18 22:53 Neut # (Auto) 6.71 K/uL (1.4-6.5) H 12/31/18 22:53 Lymph # (Auto) 1.07 K/uL (1.2-3.4) L 12/31/18 22:53 [place] # (Auto) 0.93 K/uL (0.11-0.59) H 12/31/18 22:53 Eos # (Auto) 0.22 K/uL (0-0.5) 12/31/18 22:53 Baso # (Auto) 0.06 K/uL (0-0.2) 12/31/18 22:53 APTT 26.5 Seconds (21.0-31.0) 12/31/18 22:53 PTT Ratio 1.0 12/31/18 22:53 Sodium 143 mmol/L (136-145) 12/31/18 22:53 Potassium 4.5 mmol/L (3.5-5.1) 12/31/18 22:53 Chloride 110 mmol/L (98-107) H 12/31/18 22:53 Carbon Dioxide 27 mmol/L (21-32) 12/31/18 22:53 Anion Gap 6.0 (3-11) 12/31/18 22:53 BUN 28 mg/dl (7-18) H 12/31/18 22:53 Creatinine 1.50 mg/dl (0.6-1.2) H 12/31/18 22:53 Est Cr Clr Drug Dosing 28.6 ml/min 12/31/18 22:53 Est GFR ( Amer) 37.2 12/31/18 22:53 Est GFR (Non-Af Amer) 32.1 12/31/18 22:53 BUN/Creatinine Ratio 18.5 (10-20) 12/31/18 22:53 Glucose 168 mg/dl (70-99) H 12/31/18 22:53 Calcium 9.1 mg/dl (8.5-10.1) 12/31/18 22:53 Magnesium 2.2 mg/dl (1.8-2.4) 12/31/18 22:53 Total Bilirubin 0.2 mg/dl (0.2-1) 12/31/18 22:53 AST 12 U/L (15-37) L 12/31/18 22:53 ALT 15 U/L (12-78) 12/31/18 22:53 Alkaline Phosphatase 91 U/L (45-117) 12/31/18 22:53 Troponin I < 0.015 ng/ml (0-0.045) 12/31/18 22:53 Total Protein 6.8 gm/dl (6.4-8.2) 12/31/18 22:53 Albumin 3.3 gm/dl (3.4-5.0) L 12/31/18 22:53 Globulin 3.5 gm/dl (2.5-4.0) 12/31/18 22:53 Albumin/Globulin Ratio 0.9 (0.9-2) 12/31/18 22:53 Lipase 64 U/L (73-393) L 12/31/18 22:53 TSH 2.470 uIu/ml (0.300-4.500) 12/31/18 22:53 Diagnostic Findings Chest x-ray showed patchy airspace consolidation is seen at both lung bases. Correlate clinically for evidence of pneumonia/aspiration pneumonitis. EKG as per my interpretation : Rate 90, NSR, T wave flattening lateral leads
[2019-01-01] MEDS ORDERED: ACETAMINOPHEN 325 MG TAB PO PRN (02:58)
[2019-01-01] MEDS ORDERED: HYDROmorphone INJ 0.5 MG/0.5 ML SYR IV PRN (02:58)
[2019-01-01] MEDS ORDERED: SODIUM CHLORIDE 0.45 % 1,000 ML IV SCH (02:58)
[2019-01-01] MEDS ORDERED: MECLIZINE HCL 25 MG TAB PO PRN (02:58)
[2019-01-01] MEDS ORDERED: PROCHLORPERAZINE 5 MG in SYRINGE 4 ML IV PRN (02:58)
[2019-01-01] MEDS ORDERED: LORazepam 0.5 MG TAB PO PRN (02:58)
[2019-01-01] MEDS ORDERED: PNEUMOCOCCAL POLYSACCHARIDES 25 MCG/0.5 ML VIAL/SYR IM ONE (06:00)
[2019-01-01] MEDS ORDERED: PNEUMOCOCCAL ADMINISTRATION CHARGE ONE (06:00)
[2019-01-01] MEDS: HEPARIN SOD 5,000 UNIT/0.5 ML VIAL SQ SCH ×3 (06:21→20:42)
[2019-01-01 06:22] LABS: Basophils # (auto) 0.04 K/uL (0-0.2); Basophils % (auto) 0.5 %; Eosinophils # (auto) 0.13 K/uL (0-0.5); Eosinophils % (auto) 1.8 %; Hematocrit (blood only) 42.3 % (37-47); Hemoglobin 13.8 g/dL (12.0-16.0); Immature Granulocytes # (auto) 0.03 K/uL (0.00-0.02); Immature Granulocytes % (auto) 0.4 %; Lymphocytes # (auto) 1.06 K/uL (1.2-3.4); Lymphocytes % (auto) 14.3 %; Mean Corpuscular Hgb Conc 32.6 g/dL (32-36); Mean Corpuscular Volume 95.5 fL (80-100); Mean Platelet Volume 10.8 fL (7.4-10.4); Monocytes # (auto) 0.77 K/uL (0.11-0.59); Monocytes % (auto) 10.4 %; Neutrophils # (auto) 5.37 K/uL (1.4-6.5); Neutrophils % (auto) 72.6 %; Platelet Count 180 K/uL (130-400); RDW Coefficient of Variation 13.9 % (11.5-14.5); RDW Standard Deviation 48.8 fL (36.4-46.3); Red Blood Count 4.43 M/uL (4.2-5.4)
[2019-01-01 06:43] LABS: Prothrombin Time 10.3 Seconds (9.0-12.0)
[2019-01-01 06:46] LABS: Blood Urea Nitrogen 24 mg/dl (7-18); Calcium 9.3 mg/dl (8.5-10.1); Carbon Dioxide 29 mmol/L (21-32); Chloride 110 mmol/L (98-107); Creatinine Clr Calc Pharmacy 32.1 ml/min; Est GFR (Non-African American) 37.1; Glucose 132 mg/dl (70-99); Potassium 4.7 mmol/L (3.5-5.1); Sodium 142 mmol/L (136-145)
[2019-01-01 06:50] LABS: Chol HDL Ratio 2; Cholesterol 137 mg/dl (0-200); HDL Cholesterol 58 mg/dl; LDL Cholesterol Calculated 61 mg/dl; Triglycerides 91 mg/dl (0-150); Troponin I < 0.015 ng/ml (0-0.045); VLDL Cholesterol 18 mg/dl
[2019-01-01 07:29] LABS: Estimated Average Glucose 146 mg/dl; Hemoglobin A1C 6.7 % (4.5-5.6)
[2019-01-01] MEDS: MULTIVITAMIN TAB PO SCH (08:40)
[2019-01-01] MEDS: ASPIRIN 81 MG ECTAB PO SCH (08:40)
[2019-01-01] MEDS: HYDROCODONE/ACETAMOPHEN 5/325MG TAB PO PRN ×2 (08:44→22:53)
--- NOTE | 2019-01-01 10:24 | Cardiology Consultation ---
Date of Consultation January 01, 2019 Assessment & Plan (1) Chest pain, precordial: EKG is normal and troponins are undetectable. Prior diagnostic cardiac catheterization June 2017 without obstructive disease, minimal coronary atherosclerosis only Chest x-ray mild increase in interstitial markings diffusely Plan: Repeat EKG. Echocardiogram ordered for this morning to reassess LV function and aortic valve We will treat hypertension pending above add topical nitrates 1/2 inch every 6 hours. Furosemide 40 mg p.o. x1 this morning We will continue to follow with further recommendations pending results of above studies (2) Hypertensive urgency: As above with plans to initiate further antihypertensive regimen depending on results of testing (3) Aortic valve stenosis: Prior studies demonstrate borderline severe aortic stenosis approaching surgical severity in July 2018. Echocardiogram will be repeated today (4) COPD (chronic obstructive pulmonary disease): Patient wheezing this morning single dose of furosemide given bronchodilators should be continued this admission History of Present Illness Reason for Consultation: Chest pressure and dyspnea Requesting Physician: Dr. Cruz Attending Physician: Eagle Cruz MD History of Present Illness Patient is an 83-year-old female who is followed for 1. Calcific aortic valve disease, borderline severe 2. Minimal coronary atherosclerosis by diagnostic cardiac catheterization June 2017 3. Hypertension 4. Chronic obstructive lung disease 5. Chronic renal insufficiency, stage III 6. Moderate right carotid stenosis Patient was admitted last evening having developed symptoms of substernal chest pressure and shortness of breath while sitting watching TV last night. Symptoms improved slightly but did not resolve with bronchodilator and patient presented for further admission. On ER presentation patient was markedly hypertensive. No troponin elevation or diagnostic EKG changes Patient is asymptomatic this morning no baseline wheezing is present. She denies fevers chills or productive cough. Notes no melena hematochezia dysuria hematuria. Notes no GI upset. Notes no orthopnea or worsening peripheral edema. Feels weight is been essentially stable. Has been taking medications as prescribed. Does note moderate exertional dyspnea and fatigue. Notes no lightheadedness syncope or near syncope. Does not routinely check blood pressures at home Allergies Allergy/AdvReac Type Severity Reaction Status Date / Time Sulfa (Sulfonamide Allergy Mild "SULFA Verified 03/05/18 20:55 Antibiotics) DRUGS": UNKNOWN atenolol Allergy Unknown RASH AND Verified 03/05/18 20:55 ITCHING-TAKES TOPROL-XL AT HOME lisinopril AdvReac Unknown COUGH Unverified 03/05/18 20:55 Home Medications Home Medications Medication Instructions Recorded Confirmed Type amlodipine 10 mg PO DAILY 12/31/18 12/31/18 History aspirin 81 mg PO DAILY 12/31/18 12/31/18 History cholecalciferol (vitamin D3) 1,000 unit PO DAILY 12/31/18 12/31/18 History [Vitamin D3] cholecalciferol (vitamin D3) 5,000 unit PO DAILY 12/31/18 12/31/18 History [Vitamin D3] furosemide [Lasix] 20 mg PO DAILY 12/31/18 12/31/18 History hydrocodone-acetaminophen 1 tab PO Q6H PRN 12/31/18 12/31/18 History ibandronate [Boniva] 150 mg PO MONTHLY 12/31/18 12/31/18 History ipratropium-albuterol 3 ml INHALATION QID 12/31/18 12/31/18 History ipratropium-albuterol [Combivent 1 puff INHALATION QID 12/31/18 12/31/18 History Respimat] lorazepam 0.5 mg PO TID PRN 12/31/18 12/31/18 History meclizine 25 mg PO TID PRN 12/31/18 12/31/18 History multivitamin 1 tab PO DAILY 12/31/18 12/31/18 History ondansetron HCl [Zofran] 4 mg PO TID PRN 12/31/18 12/31/18 History simvastatin [Zocor] 20 mg PO PM 12/31/18 12/31/18 History zolpidem [Ambien] 10 mg PO HS 12/31/18 12/31/18 History Patient History Medical History GERD (gastroesophageal reflux disease) (Chronic) Carotid stenosis (Chronic) COPD (chronic obstructive pulmonary disease) (Chronic) Osteoporosis (Chronic) CKD (chronic kidney disease), stage III (Chronic) Dyslipidemia (Chronic) Aortic valve stenosis (Chronic) HTN (hypertension) (Chronic) Surgical History H/O laminectomy (Chronic) History of hysterectomy (Chronic) H/O hernia repair (Chronic) Status post total hip replacement, right (Chronic) History of cataract surgery (Chronic) S/P tonsillectomy and adenoidectomy (Chronic) S/P cholecystectomy (Chronic) Social History Smoking Status: Former smoker Physical Exam Vital Signs (Past 24 Hours): Last Vital Signs Temp 36.9 C 01/01/19 07:11 Pulse 85 01/01/19 07:42 Resp 20 01/01/19 07:11 BP 168/83 H 01/01/19 07:11 Pulse Ox 92 01/01/19 07:11 Constitutional: WD/WN, vitals as above no acute distress Eyes: PERRL, conjunctivae normal, anicteric sclerae ENMT: external ear and nose normal, oropharynx normal Neck: + thick neck Respiratory: + audible wheezes (Anterior greater than posterior, worse with cough); no respiratory distress Cardiovascular: Rate/Rhythm: regular rate and regular rhythm Heart Sounds: normal S1, normal S2 and + murmur (Grade 3/6 systolic murmur heard best at the right upper sternal border and throughout the precordium, no diastolic murmur); no gallop Vessels: radial pulses present; no JVD Extremities: no pedal edema Gastrointestinal (Abdomen): normal bowel sounds, soft, nontender, no hepatosplenomegaly Musculoskeletal: no cyanosis or clubbing, extremities motor strength 5/5 Neurologic: PERRL, EOMI, accommodation nl, no face palsy, no dysarthria Psychiatric: A+Ox3, euthymic affect Results & Data Laboratory Results Laboratory Results - last 24 hr 12/31/18 12/31/18 12/31/18 22:53 22:53 22:53 WBC 9.03 RBC 4.32 Hgb 13.6 Hct 42.0 MCV 97.2 MCH 31.5 MCHC 32.4 RDW Std Deviation 49.7 H RDW Coeff of [place] 13.9 Plt Count 187 MPV 10.9 H Immature Gran % (Auto) 0.4 Neut % (Auto) 74.4 Lymph % (Auto) 11.8 [place] % (Auto) 10.3 Eos % (Auto) 2.4 Baso % (Auto) 0.7 Immature Gran # (Auto) 0.04 H Neut # (Auto) 6.71 H Lymph # (Auto) 1.07 L [place] # (Auto) 0.93 H Eos # (Auto) 0.22 Baso # (Auto) 0.06 PT INR APTT 26.5 PTT Ratio 1.0 Sodium 143 Potassium 4.5 Chloride 110 H Carbon Dioxide 27 Anion Gap 6.0 BUN 28 H Creatinine 1.50 H Est Cr Clr Drug Dosing 28.6 Est GFR ( Amer) 37.2 Est GFR (Non-Af Amer) 32.1 BUN/Creatinine Ratio 18.5 Glucose 168 H Estimat Average Glucose Hemoglobin A1c Calcium 9.1 Magnesium 2.2 Total Bilirubin 0.2 AST 12 L ALT 15 Alkaline Phosphatase 91 Troponin I < 0.015 Total Protein 6.8 Albumin 3.3 L Globulin 3.5 Albumin/Globulin Ratio 0.9 Triglycerides Cholesterol LDL Cholesterol, Calc VLDL Cholesterol, Calc HDL Cholesterol Cholesterol/HDL Ratio Lipase 64 L TSH 2.470 12/31/18 01/01/19 01/01/19 22:53 02:06 05:56 WBC 7.40 RBC 4.43 Hgb 13.8 Hct 42.3 MCV 95.5 MCH 31.2 MCHC 32.6 RDW Std Deviation 48.8 H RDW Coeff of [place] 13.9 Plt Count 180 MPV 10.8 H Immature Gran % (Auto) 0.4 Neut % (Auto) 72.6 Lymph % (Auto) 14.3 [place] % (Auto) 10.4 Eos % (Auto) 1.8 Baso % (Auto) 0.5 Immature Gran # (Auto) 0.03 H Neut # (Auto) 5.37 Lymph # (Auto) 1.06 L [place] # (Auto) 0.77 H Eos # (Auto) 0.13 Baso # (Auto) 0.04 PT INR APTT PTT Ratio Sodium Potassium Chloride Carbon Dioxide Anion Gap BUN Creatinine Est Cr Clr Drug Dosing Est GFR ( Amer) Est GFR (Non-Af Amer) BUN/Creatinine Ratio Glucose Estimat Average Glucose 146 Hemoglobin A1c 6.7 H Calcium Magnesium Total Bilirubin AST ALT Alkaline Phosphatase Troponin I < 0.015 Total Protein Albumin Globulin Albumin/Globulin Ratio Triglycerides Cholesterol LDL Cholesterol, Calc VLDL Cholesterol, Calc HDL Cholesterol Cholesterol/HDL Ratio Lipase TSH 01/01/19 01/01/19 05:56 05:56 WBC RBC Hgb Hct MCV MCH MCHC RDW Std Deviation RDW Coeff of [place] Plt Count MPV Immature Gran % (Auto) Neut % (Auto) Lymph % (Auto) [place] % (Auto) Eos % (Auto) Baso % (Auto) Immature Gran # (Auto) Neut # (Auto) Lymph # (Auto) [place] # (Auto) Eos # (Auto) Baso # (Auto) PT 10.3 INR 1.0 APTT PTT Ratio Sodium 142 Potassium 4.7 Chloride 110 H Carbon Dioxide 29 Anion Gap 4.0 BUN 24 H Creatinine 1.33 H Est Cr Clr Drug Dosing 32.1 Est GFR ( Amer) 43.0 Est GFR (Non-Af Amer) 37.1 BUN/Creatinine Ratio 18.0 Glucose 132 H Estimat Average Glucose Hemoglobin A1c Calcium 9.3 Magnesium Total Bilirubin AST ALT Alkaline Phosphatase Troponin I < 0.015 Total Protein Albumin Globulin Albumin/Globulin Ratio Triglycerides 91 Cholesterol 137 LDL Cholesterol, Calc 61 VLDL Cholesterol, Calc 18 HDL Cholesterol 58 Cholesterol/HDL Ratio 2 Lipase TSH ECG Additional Comments: 31-DEC-2018 21:45:38 [facility] Normal sinus rhythm Normal ECG When compared with ECG of 05-MAR-2018 20:32, No significant change was found Vent. rate 87 BPM
[2019-01-01] MEDS ORDERED: FUROSEMIDE 40 MG TAB PO ONE (10:33)
[2019-01-01] MEDS ORDERED: PERFLUTREN LIPID MICROSPHERE (DEFINITY) IV ONE (11:33)
[2019-01-01] MEDS: NITROGLYCERIN 2% OINTMENT 30GM TUBE EXT SCH ×2 (12:39→17:59)
[2019-01-01] MEDS: METOPROLOL SUCC 25MG EXT REL TAB PO SCH (16:12)
[2019-01-01] MEDS: ISOSORBIDE DINITRATE 20 MG TAB PO SCH (17:51)
--- NOTE | 2019-01-01 18:15 | Hospitalist Progress Note ---
Date of Service January 01, 2019 Assessment & Plan (1) Chest pain, precordial: Chest pain -Prior diagnostic cardiac catheterization June 2017 without obstructive disease, minimal coronary atherosclerosis only -EKG is normal and troponins are undetectable. -echocardiogram on thsi admission with no wall abnormalities, EF is normal 60 to 65% -possibly that chest pain may have been due to initial Hypertensive urgency /Hypertension vs aortic stenosis -continue statin Hypertensive urgency / Hypertension -continue home dose amlodipine 10 mg daily -cardiology service recommend topical nitrates 1/2 inch every 6 hours. Furosemide 40 mg p.o. x1 this morning. also started metoprolol succinate and isosorbide Aortic Valve stenosis - Prior studies demonstrate borderline severe aortic stenosis approaching surgical severity in July 2018 - Echocardiogram on this admission with borderline severe to severe aortic stenosis -cardiology service recommend further inpatient monitoring for chest pain symptoms and blood pressure management and have been trying to set up patient with outpatient cardiology valve specialist COPD, past tobacco abuse; pulmonary status at baseline -Patient wheezing this morning single dose of furosemide given bronchodilators should be continued this admission Type II diabetes mellitus -may have been newly diagnosed -not on diabetes medications from home -HbA1c 6.7 -will place on diabetic diet and sliding scale insulin and check fingerstick glucose Chronic Kidney Disease -can consider low dose lisinopril on discharge DVT prophylaxis. Heparin subcutanous Full code Subjective Patient reports that since this morning she has not been having chest pain. Blood pressure better controlled today than on initial presentation. no lightheadedness. no vomiting. no abdominal pain Physical Exam Constitutional: WD/WN, vitals as above Eyes: PERRL, conjunctivae normal, anicteric sclerae EOM intact bilaterally ENMT: external ear and nose normal, oropharynx normal Respiratory: normal respiratory effort, lungs clear to auscultation Cardiovascular: Rate/Rhythm: regular rate and regular rhythm Gastrointestinal (Abdomen): normal bowel sounds, soft, nontender, no hepatosplenomegaly Musculoskeletal: Head/Neck/Chest: normocephalic and head atraumatic Neurologic: PERRL, EOMI, accommodation nl, no face palsy, no dysarthria CN's II-XI intact bilaterally Psychiatric: A+Ox3, euthymic affect Results & Data Vital Signs (Past 12 Hours) Vital Signs Temp Pulse Pulse Resp BP BP Pulse Ox 01/01/19 18:00 80 104/63 01/01/19 15:11 36.8 C 78 18 129/85 90 01/01/19 11:01 36.7 C 69 18 143/79 H 92 01/01/19 07:42 85 01/01/19 07:11 36.9 C 81 20 168/83 H 92
[2019-01-01] MEDS ORDERED: GLUCOSE 40% GEL 15 GM TUBE PO PRN (18:27)
[2019-01-01] MEDS ORDERED: DEXTROSE 50% 50 ML SYRINGE IV PRN (18:27)
[2019-01-01] MEDS ORDERED: GLUCAGON FOR INJ 1 MG VIAL SQ PRN (18:27)
[2019-01-01] MEDS ORDERED: GLUCOSE 10 TABS/TUBE PO PRN (18:27)
[2019-01-01] MEDS ORDERED: CARBOHYDRATES FOR HYPOGLYCEMIA PO PRN (18:27)
[2019-01-01] MEDS ORDERED: XOPENEX/ATROVENT 1.25mg/0.5MG NEB COMBO NEB PRN (19:30)
[2019-01-01] MEDS ORDERED: IPRATROPIUM BROMIDE NEB SOLN 0.02% 2.5 ML VIAL INH PRN (19:30)
[2019-01-01] MEDS ORDERED: LEVALBUTEROL 1.25MG/0.5ML NEB INH PRN (19:30)
[2019-01-01] MEDS: INSULIN ASPART 100 UNITS/ML 3 ML PEN SC SCH (20:53)
[2019-01-01] MEDS ORDERED: ZOLPIDEM TARTRATE 10 MG TAB PO SCH (21:00)
[2019-01-01] MEDS ORDERED: SIMVASTATIN 20 MG TAB PO SCH (21:00)
[2019-01-02] MEDS: ISOSORBIDE DINITRATE 20 MG TAB PO SCH ×2 (06:29→12:29)
[2019-01-02] MEDS: HEPARIN SOD 5,000 UNIT/0.5 ML VIAL SQ SCH ×2 (06:29→12:08)
[2019-01-02] MEDS: HYDROCODONE/ACETAMOPHEN 5/325MG TAB PO PRN ×2 (08:25→14:31)
[2019-01-02] MEDS: METOPROLOL SUCC 25MG EXT REL TAB PO SCH (08:26)
[2019-01-02] MEDS: MULTIVITAMIN TAB PO SCH (08:27)
[2019-01-02] MEDS: ASPIRIN 81 MG ECTAB PO SCH (08:28)
[2019-01-02] MEDS: INSULIN ASPART 100 UNITS/ML 3 ML PEN SC SCH ×2 (08:30→12:08)
[2019-01-02] MEDS ORDERED: AMLODIPINE BESYLATE 5 MG TAB PO SCH (09:00)
--- NOTE | 2019-01-02 13:29 | Cardiology Progress Note ---
Date of Service January 02, 2019 Assessment & Plan (1) Chest pain, precordial: EKG is normal and troponins are undetectable. Prior diagnostic cardiac catheterization June 2017 without obstructive disease, minimal coronary atherosclerosis only Chest x-ray mild increase in interstitial markings diffusely Review of data noted. No signs of acute myocardial ischemia suspect component of hypertensive urgency superimposed on mild volume overload and severe aortic stenosis (2) Hypertensive urgency: Meds adjusted with Isordil added to regimen. Would increase furosemide dosing by additional 20 mg/week (3) Aortic valve stenosis: Echocardiogram demonstrates aortic stenosis approaching severe now with symptoms will likely require valvular intervention Outpatient arrangements being made (4) COPD (chronic obstructive pulmonary disease): Patient wheezing this morning single dose of furosemide given bronchodilators should be continued this admission Subjective Patient seen and examined, chart, telemetry, medications reviewed. Feels improved since admission. Blood pressure is under much better control. No further chest pain or discomfort patient amatory room and hallway. Notes no fevers or chills. Telemetry no arrhythmias. Troponin is nondetectable on serial testing. Repeat EKG is normal Physical Exam Constitutional: WD/WN, vitals as above no acute distress Eyes: PERRL, conjunctivae normal, anicteric sclerae ENMT: external ear and nose normal, oropharynx normal Neck: + thick neck Respiratory: + audible wheezes (Minimal with improvement from prior day); no respiratory distress Cardiovascular: Rate/Rhythm: regular rate and regular rhythm Heart Sounds: normal S1, normal S2 and + murmur (Grade 3/6 systolic murmur heard best at the right upper sternal border and throughout the precordium, no diastolic murmur); no gallop Vessels: radial pulses present; no JVD Extremities: no pedal edema Gastrointestinal (Abdomen): normal bowel sounds, soft, nontender, no hepatosplenomegaly Musculoskeletal: no cyanosis or clubbing, extremities motor strength 5/5 Neurologic: PERRL, EOMI, accommodation nl, no face palsy, no dysarthria Psychiatric: A+Ox3, euthymic affect Results & Data Vital Signs (Past 12 Hours) Vital Signs Temp Pulse Pulse Resp BP Pulse Ox 01/02/19 11:31 37.1 C 66 16 107/68 98 01/02/19 07:23 65 01/02/19 07:21 36.8 C 81 16 123/70 90 01/02/19 04:00 36.5 C 80 21 125/72 90 Laboratory Results Laboratory Results - last 24 hr 01/01/19 01/02/19 01/02/19 20:29 07:40 11:57 POC Glucose 173 H 142 H 114 H
--- NOTE | 2019-01-02 15:11 | Hospitalist Progress Note ---
Date of Service January 02, 2019 Assessment & Plan (1) Chest pain, precordial: Chest pain -Prior diagnostic cardiac catheterization June 2017 without obstructive disease, minimal coronary atherosclerosis only -EKG is normal and troponins are undetectable. -echocardiogram on thsi admission with no wall abnormalities, EF is normal 60 to 65% -possibly that chest pain may have been due to initial Hypertensive urgency /Hypertension vs aortic stenosis -continue statin Hypertensive urgency / Hypertension -continue home dose amlodipine 10 mg daily -cardiology service gave topical nitrates 1/2 inch every 6 hours and Furosemide 40 mg on 01/01/19. also started metoprolol succinate and isosorbide Patient has prescriptions sent to [facility] pharmacy in [place] (patient should take furosemide 40 mg every Sunday and 20 mg daily on other days -patient should take isosorbide dinitrate 20 mg three times a day -patient should take metoprolol succinate 12.5 mg daily) Aortic Valve stenosis - Prior studies demonstrate borderline severe aortic stenosis approaching surgical severity in July 2018 - Echocardiogram on this admission with borderline severe to severe aortic stenosis -has outpatient cardiology clinic follow up with Dr. Singh -cardiology service coordinating outpatient follow up for outpatient cardiology valve specialist COPD, past tobacco abuse -pulmonary status at baseline Type II diabetes mellitus -may have been newly diagnosed -not on diabetes medications from home -HbA1c 6.7 -was place on diabetic diet and sliding scale insulin and check fingerstick glucose -patient should take glipizide 2.5 mg daily (prescription made) and patient should discuss with primary care doctor on future diabetes mellitus management Chronic Kidney Disease -continue monitoring as outpatient DVT prophylaxis. Heparin subcutanous Full code Discharge Diagnosis Chest pain, Aortic Valve stenosis, Hypertensive urgency / Hypertension, Chronic kidney disease, Type II diabetes mellitus without ferry terminal agent current use of insulin Discharge Instructions Discharge to home Patient has prescriptions sent to [facility] pharmacy in [place] -patient should take furosemide 40 mg every Sunday and 20 mg daily on other days -patient should take isosorbide dinitrate 20 mg three times a day -patient should take metoprolol succinate 12.5 mg daily -patient should take glipizide 2.5 mg daily and discuss with primary care doctor on future diabetes mellitus management Follow up appointments 01/09/2019 9:30 AM Provider Adriana Meza DPM Department Podiatry [facility] 01/09/2019 11:00 AM Provider Juan Scott MD Department [facility] 01/15/2019 2:45 PM Provider Mark Singh DO Department Cardiology, [facility] 02/20/2019 9:20 AM Provider Klaus Douglas MD Department [facility] 02/24/2019 9:30 AM Provider [employer] 1 Department Cardiac Studies, [facility] 03/05/2019 9:30 AM Provider Mark Singh DO Department Cardiology, [facility] 03/13/2019 10:40 AM Provider Shameka Sawant MD Department Nephrology, [facility] Subjective no chest pain. no shortness of breath. blood pressure controlled. no headache. no lightheadness. no vomiting Physical Exam Constitutional: WD/WN, vitals as above Eyes: PERRL, conjunctivae normal, anicteric sclerae EOM intact bilaterally ENMT: external ear and nose normal, oropharynx normal Neck: trachea midline, no thyromegaly Respiratory: normal respiratory effort, lungs clear to auscultation Cardiovascular: Rate/Rhythm: regular rate and regular rhythm Gastrointestinal (Abdomen): normal bowel sounds, soft, nontender, no hepatosplenomegaly Musculoskeletal: Head/Neck/Chest: normocephalic and head atraumatic Neurologic: PERRL, EOMI, accommodation nl, no face palsy, no dysarthria CN's II-XI intact bilaterally Psychiatric: A+Ox3, euthymic affect Results & Data Vital Signs (Past 12 Hours) Vital Signs Temp Pulse Pulse Resp BP Pulse Ox 01/02/19 11:31 37.1 C 66 16 107/68 98 01/02/19 07:23 65 01/02/19 07:21 36.8 C 81 16 123/70 90 01/02/19 04:00 36.5 C 80 21 125/72 90
--- NOTE | 2019-01-02 15:16 | Discharge Summary ---
Date of Service January 02, 2019 Admission HPI Per Admitting Provider History obtained from patient, family, and records. Medical history significant for chronic diastolic dysfunction (TTE 55-59% July 2018), CAD, severe aortic stenosis, hypertension, hyperlipidemia, PVD, COPD, past tobacco abuse, CRI (baseline creatinine 1.4-1.5). Recent confinement October 2016 under Orthopedics service for left hip surgery. Patient was watching television last night when she experience substernal heaviness which later radiated to left arm accompanied by shortness of breath, diaphoresis and nausea. Partial relief with breathing treatment, patient denies cough symptoms however. May have had similar short-lived episodes in the past. At the ER, chest discomfort completely relieved by nitroglycerin. SBP at home 180s. Patient does not check her blood pressure at home. No unusual stress at home, denies dietary indiscretion. Admission Exam Per Admitting Provider GENERAL: Comfortable, obese, occasionally speaks in phrases, no overt respiratory distress SKIN: Normal color, warm HEENT: Bespectacled, pink palpebral conjunctivae, no ptosis, dry buccal mucosa NECK : Supple, no tenderness CHEST : Decreased breath sounds, no tenderness HEART : RRR, systolic murmur ABDOMEN: Some distention, nontender EXTREMITIES : No LE swelling/tenderness, no other conspicuous deformities noted NEUROLOGIC : Coherent, no facial asymmetry, no other gross focality Principal Diagnosis Chest pain, Aortic Valve stenosis, Hypertensive urgency / Hypertension, Chronic kidney disease, Type II diabetes mellitus without termite treater current use of insulin Discharge Exam Constitutional WD/WN, vitals as above Eyes PERRL, conjunctivae normal, anicteric sclerae EOM intact bilaterally ENMT external ear and nose normal, oropharynx normal Neck trachea midline, no thyromegaly Respiratory normal respiratory effort, lungs clear to auscultation Cardiovascular Rate/Rhythm: regular rate and regular rhythm Gastrointestinal (Abdomen) normal bowel sounds, soft, nontender, no hepatosplenomegaly Musculoskeletal Head/Neck/Chest: normocephalic and head atraumatic Neurologic PERRL, EOMI, accommodation nl, no face palsy, no dysarthria CN's II-XI intact bilaterally Psychiatric A+Ox3, euthymic affect Discharge Data Allergies Allergy/AdvReac Type Severity Reaction Status Date / Time Sulfa (Sulfonamide Allergy Mild "SULFA Verified 03/05/18 20:55 Antibiotics) DRUGS": UNKNOWN atenolol Allergy Unknown RASH AND Verified 03/05/18 20:55 ITCHING-TAKES TOPROL-XL AT HOME lisinopril AdvReac Unknown COUGH Unverified 03/05/18 20:55 Consultations 01/01/19 01:04 ED Decision to Admit Stat 01/01/19 02:58 Consult Cardiology Routine Hospital Course (1) Chest pain, precordial: Chest pain -Prior diagnostic cardiac catheterization June 2017 without obstructive disease, minimal coronary atherosclerosis only -EKG is normal and troponins are undetectable. -echocardiogram on thsi admission with no wall abnormalities, EF is normal 60 to 65% -possibly that chest pain may have been due to initial Hypertensive urgency /Hypertension vs aortic stenosis -continue statin Hypertensive urgency / Hypertension -continue home dose amlodipine 10 mg daily -cardiology service gave topical nitrates 1/2 inch every 6 hours and Furosemide 40 mg on 01/01/19. also started metoprolol succinate and isosorbide Patient has prescriptions sent to [facility] pharmacy in [place] (patient should take furosemide 40 mg every Sunday and 20 mg daily on other days -patient should take isosorbide dinitrate 20 mg three times a day -patient should take metoprolol succinate 12.5 mg daily) Aortic Valve stenosis - Prior studies demonstrate borderline severe aortic stenosis approaching surgical severity in July 2018 - Echocardiogram on this admission with borderline severe to severe aortic stenosis -has outpatient cardiology clinic follow up with Dr. Singh -cardiology service coordinating outpatient follow up for outpatient cardiology valve specialist COPD, past tobacco abuse -pulmonary status at baseline Type II diabetes mellitus -may have been newly diagnosed -not on diabetes medications from home -HbA1c 6.7 -was place on diabetic diet and sliding scale insulin and check fingerstick glucose -patient should take glipizide 2.5 mg daily (prescription made) and patient should discuss with primary care doctor on future diabetes mellitus management Chronic Kidney Disease -continue monitoring as outpatient DVT prophylaxis. Heparin subcutanous Full code Discharge Diagnosis Chest pain, Aortic Valve stenosis, Hypertensive urgency / Hypertension, Chronic kidney disease, Type II diabetes mellitus without termite treater current use of insulin Discharge Instructions Discharge to home Patient has prescriptions sent to [facility] pharmacy in [place] -patient should take furosemide 40 mg every Sunday and 20 mg daily on other days -patient should take isosorbide dinitrate 20 mg three times a day -patient should take metoprolol succinate 12.5 mg daily -patient should take glipizide 2.5 mg daily and discuss with primary care doctor on future diabetes mellitus management Follow up appointments 01/09/2019 9:30 AM Provider Adriana Meza DPM Department Podiatry [facility] 01/09/2019 11:00 AM Provider Juan Scott MD Department [facility] 01/15/2019 2:45 PM Provider Mark Singh DO Department Cardiology, [facility] 02/20/2019 9:20 AM Provider Klaus Douglas MD Department [facility] 02/24/2019 9:30 AM Provider Mold Closer Helper 1 Department Cardiac Studies, [facility] 03/05/2019 9:30 AM Provider Mark Singh DO Department Cardiology, [facility] 03/13/2019 10:40 AM Provider Shameka Sawant MD Department Nephrology, [facility] Total Time Total Time Spent Total Time Spent (In Minutes): 40 minutes Total Time Includes: Examination of the Patient, Discharge Planning and Medication Reconciliation Discharge Plan Discharge Items Patient Disposition: Home - Self-Care Reason For Visit: CHEST PAIN Discharge Diagnosis: Chest pain, Aortic Valve stenosis, Hypertensive urgency / Hypertension, Chronic kidney disease, Type II diabetes mellitus without termite treater current use of insulin Condition: Good Discharge Goals: Improve disease control Activity: Resume your previous activity Non-emergency contact: Primary Care Provider Call non-emergency contact if: you have any medication questions Follow-up/Referrals: Klaus Douglas MD [Primary Care Provider] - Diet: Carb Consistent or DM2 and Heart Healthy Addtl Provider Instructions: Discharge to home Patient has prescriptions sent to [facility] pharmacy in [place] -patient should take furosemide 40 mg every Sunday and 20 mg daily on other days -patient should take isosorbide dinitrate 20 mg three times a day -patient should take metoprolol succinate 12.5 mg daily -patient should take glipizide 2.5 mg daily and discuss with primary care doctor on future diabetes mellitus management Follow up appointments 01/09/2019 9:30 AM Provider Adriana Meza DPM Department Podiatry [facility] 01/09/2019 11:00 AM Provider Juan Scott MD Department Family [facility] 01/15/2019 2:45 PM Provider Mark Singh DO Department Cardiology, [facility] 02/20/2019 9:20 AM Provider Klaus Douglas MD Department [facility] 02/24/2019 9:30 AM Provider Mold Closer Helper 1 Department Cardiac Studies, [facility] 03/05/2019 9:30 AM Provider Mark Singh DO Department Cardiology, [facility] 03/13/2019 10:40 AM Provider Shameka Sawant MD Department Nephrology, [facility] Prescriptions: New isosorbide dinitrate 20 mg Tablet 20 mg PO DAILY@0700,1200 30 Days Qty: 30 RF: 0 metoprolol succinate 25 mg Tablet Extended Release 24 Hr 12.5 mg PO QAM 30 Days Qty: 15 RF: 0 glipizide 5 mg Tablet 2.5 mg PO QAM 30 Days Qty: 15 RF: 0 furosemide 20 mg Tablet 20 mg PO QAM 30 Days Qty: 34 RF: 0 Continued ipratropium-albuterol 0.5 mg-3 mg(2.5 mg base)/3 mL Solution For Nebulization 3 ml INHALATION QID RF: 0 ondansetron HCl [Zofran] 4 mg Tablet 4 mg PO TID PRN (Reason: anxiety) RF: 0 lorazepam 0.5 mg Tablet 0.5 mg PO TID PRN (Reason: Anxiety) RF: 0 amlodipine 10 mg Tablet 10 mg PO DAILY RF: 0 simvastatin [Zocor] 20 mg Tablet 20 mg PO PM RF: 0 aspirin 81 mg Tablet,Chewable 81 mg PO DAILY RF: 0 zolpidem [Ambien] 10 mg Tablet 10 mg PO HS RF: 0 meclizine 25 mg Tablet,Chewable 25 mg PO TID PRN (Reason: Anxiety) RF: 0 multivitamin Tablet,Chewable 1 tab PO DAILY RF: 0 ibandronate [Boniva] 150 mg Tablet 150 mg PO MONTHLY RF: 0 cholecalciferol (vitamin D3) [Vitamin D3] 1,000 unit Tablet 1,000 unit PO DAILY RF: 0 cholecalciferol (vitamin D3) [Vitamin D3] 5,000 unit Tablet 5,000 unit PO DAILY RF: 0 hydrocodone-acetaminophen 2.5-325 mg Tablet 1 tab PO Q6H PRN (Reason: Pain) RF: 0 Combivent Respimat 20-100 mcg/actuation Mist 1 puff INHALATION QID RF: 0 Discontinued furosemide [Lasix] 20 mg Tablet 20 mg PO DAILY RF: 0 Stand-Alone Forms: [employer] [facility] [employer] [facility]/Other Patient Handouts: Diabetes Meal Planning Discharge Orders: Discharge Order (Routine); Ordered 01/02/19 Ordered By: Eagle Cruz Admission Data Admit Date/Time: 01/01/19 02:02 Attending Provider: Eagle Cruz Admit Provider: Clifford Berumen Primary Care Provider: Klaus Douglas Other Providers: Clifford Berumen ; Mark Marte ; Mark Singh ; Larry Miranda ; Jason Torres ; Addy Garland ; Olu Hernandez ; Madison May ; Rizwana Butts Service: Telemetry Medical
[2019-01-03] MEDS ORDERED: glipiZIDE 5 MG TAB PO SCH (09:00)
[2019-01-03] MEDS ORDERED: FUROSEMIDE 20 MG TAB PO SCH (09:00)
== END 2019-01-02 15:56 | disposition home or self-care (01) ==
LOC: 2N 21:39 → ED 21:39 → 2N 01-01 02:28

== ENCOUNTER 2019-05-29 14:12 | Observation (INO) ==
[2019-05-29] MEDS ORDERED: SODIUM CHLORIDE 0.9% 1000ML 1,000 ML IV SCH (14:30)
[2019-05-29 14:49] LABS: Basophils # (auto) 0.03 K/uL (0-0.2); Basophils % (auto) 0.5 %; Eosinophils # (auto) 0.13 K/uL (0-0.5); Hematocrit (blood only) 40.4 % (37-47); Hemoglobin 12.8 g/dL (12.0-16.0); Immature Granulocytes # (auto) 0.01 K/uL (0.00-0.02); Immature Granulocytes % (auto) 0.2 %; Lymphocytes # (auto) 1.25 K/uL (1.2-3.4); Lymphocytes % (auto) 18.8 %; Mean Corpuscular Hgb Conc 31.7 g/dL (32-36); Mean Corpuscular Volume 96.2 fL (80-100); Monocytes # (auto) 0.67 K/uL (0.11-0.59); Monocytes % (auto) 10.1 %; Neutrophils # (auto) 4.55 K/uL (1.4-6.5); Neutrophils % (auto) 68.4 %; Platelet Count 234 K/uL (130-400); RDW Coefficient of Variation 14.9 % (11.5-14.5); RDW Standard Deviation 52.4 fL (36.4-46.3); White Blood Count 6.64 K/uL (4.8-10.8)
--- NOTE | 2019-05-29 14:59 | CT Scan Report ---
CT OF THE HEAD WITHOUT CONTRAST CLINICAL HISTORY: Stroke evaluation , facial numbness COMPARISON STUDY: No previous studies for comparison. CT DOSE: 729.78 mGycm TECHNIQUE: Helical axial images of the head were obtained without IV contrast. Automated exposure con trol was utilized for the study. A dose lowering technique was utilized adhering to the principles o f ALARA. FINDINGS: No acute intracranial hemorrhage, midline shift or mass effect is present. The ventricular system is unremarkable. The basilar cisterns are patent. No extra-axial collections are present. Ther e are no findings to suggest acute dural sinus thrombosis or acute territorial infarct. No significan t calvarial abnormalities are present. Mild sphenoid sinus mucosal thickening is noted. There is trac e fluid within the right mastoid air cells. IMPRESSION: 1. No acute intracranial findings. 2. Mild sphenoid sinus mucosal thickening. Trace fluid within the right mastoid air cells. Electronically signed by: Jamaal Phan M.D. 05/29/2019 2:57 PM
[2019-05-29 15:06] LABS: INR 1.1 (0.9-1.1); Partial Thromboplastin Time 25.9 Seconds (21.0-31.0); Prothrombin Time 10.9 Seconds (9.0-12.0)
[2019-05-29 15:10] LABS: Alanine Aminotransferase 13 U/L (12-78); Albumin Level 3.6 gm/dl (3.4-5.0); Aspartate Aminotransferase 9 U/L (15-37); BUN Creatinine Ratio 12.1 (10-20); Blood Urea Nitrogen 19 mg/dl (7-18); Carbon Dioxide 29 mmol/L (21-32); Chloride 103 mmol/L (98-107); Creatinine Clr Calc Pharmacy 26.8 ml/min; Est GFR (African American) 35.8; Est GFR (Non-African American) 30.9; Glucose 110 mg/dl (70-99); Magnesium 2.3 mg/dl (1.8-2.4); Potassium 3.6 mmol/L (3.5-5.1); Sodium 141 mmol/L (136-145)
--- NOTE | 2019-05-29 15:10 | XRay Report ---
SINGLE VIEW CHEST CLINICAL HISTORY: Facial numbness. FINDINGS: 2 AP, portable, upright chest radiographs are compared to study dated 12/31/2018. The examin ation is degraded by portable technique and patient rotation. The cardiomediastinal silhouette is u nremarkable noting atherosclerotic calcification of the thoracic aorta. There is chronic elevation of the left hemidiaphragm with associated atelectasis. There are scattered calcified granulomas. No air space consolidation or large pleural effusion is identified There is no pneumothorax. The skeletal st ructures are osteopenic. The bony thorax appears intact. Fusion hardware is partially imaged in the u pper lumbar spine. IMPRESSION: No acute cardiopulmonary abnormality. Electronically signed by: Riley Hernandez M.D. 05/29/2019 3:08 PM
[2019-05-29 15:14] LABS: Albumin Globulin Ratio 1.1 (0.9-2); Alkaline Phosphatase 67 U/L (45-117); Bilirubin,Total 0.6 mg/dl (0.2-1); Globulin 3.3 gm/dl (2.5-4.0); Total Protein 6.9 gm/dl (6.4-8.2); Troponin I < 0.015 ng/ml (0-0.045)
--- NOTE | 2019-05-29 17:57 | History & Physical Report ---
Date of Service May 29, 2019 Assessment & Plan (1) Facial numbness: This is an 83-year-old female with a PMH of severe aortic stenosis [place] [facility] HTN, CKD III, CAD, diastolic dysfunction and other medical problems listed below who presents with facial numbness starting at noon today. -Facial numbness of mouth, lips intermittent, in setting of recent TAVR procedure a few weeks ago -No rash or dermatomal distribution. No edema. No neuro deficits on exam -CT head and CXR without acute abnormalities -TSH, MRI brain w/wo contrast, carotid dopplers and echo w/ bubble study ordered -Continue aspirin, plavix, statin -Neuro checks, PT, OT, speech therapy evaluations -Routine neurology consult (2) Left bundle branch block: New on 05/16/19 following TAVR procedure -Discussed at [place] [facility], has been wearing ZIO AT for past 2 days for total of 10 -No chest pain, SOB. Troponin normal. Monitor on telemetry (3) Aortic valve stenosis: (4) S/P TAVR (transcatheter aortic valve replacement): S/p [place] on May 15 2019 [place] [facility] -Continue aspirin, plavix, statin (5) HTN (hypertension): Normotensive -Continue amlodipine, Toprol (6) CKD (chronic kidney disease), stage III: Kidney function normal with Cr of 1.55 (baseline mid-1s) (7) COPD (chronic obstructive pulmonary disease): Continue home inhalers (8) Dyslipidemia: Continue statin DVT Ppx: SQ heparin Code status: FULL PCP: Stella Dispo: Observation telemetry. Plan to return home once medically stable. Patient seen in collaboration with Dr. Cruz. Please see addendum. History of Present Illness Chief Complaint: Facial numbness Primary Care Provider: Klaus Douglas MD This is an 83-year-old female with a PMH of severe aortic stenosis s/[place]15/[place] [facility], HTN, CKD III, CAD, diastolic dysfunction and other medical problems listed below who presents with facial numbness starting at noon today. Patient recently underwent [place] [facility]. Postoperatively, was diagnosed with new left bundle branch block and patient is being monitored with ZIO AT for 10 days. Has felt fine since discharge until today at noon, when she felt "hot from feet up" with associated lip and tongue numbness that are intermittent but recurred all afternoon prior to her presentation in the ED. Denies any difficulty speaking or swallowing. No confusion. No other paresthesias or motor weakness. Denies any fever, chills, lightheadedness, visual changes, headache, chest pain, palpitations, shortness of breath, nausea, vomiting, abdominal pain, dysuria, diarrhea or constipation. Patient has been taking all medications as scheduled, including aspirin and Plavix. In ED, patient afebrile and hemodynamically stable. No leukocytosis. Electrolytes within normal limits. Creatinine 1.55 (at baseline). Troponin negative. Head CT without acute findings. Chest x-ray without acute findings. EKG with sinus rhythm with Fusion complexes and left bundle branch block (first noted on 05/16/19). Allergies Allergy/AdvReac Type Severity Reaction Status Date / Time Sulfa (Sulfonamide Allergy Mild "SULFA Verified 05/29/19 16:22 Antibiotics) DRUGS": UNKNOWN atenolol Allergy Unknown RASH AND Verified 05/29/19 16:22 ITCHING-TAKES TOPROL-XL AT HOME lisinopril AdvReac Unknown COUGH Unverified 05/29/19 16:22 Home Medications Home Medications Medication Instructions Recorded Confirmed Type Combivent Respimat 1 puff INHALATION QID 12/31/18 05/29/19 History amlodipine 5 mg PO DAILY 12/31/18 05/29/19 History aspirin 81 mg PO DAILY 12/31/18 05/29/19 History ipratropium-albuterol 3 ml INHALATION QID 12/31/18 05/29/19 History meclizine 25 mg PO TID PRN 12/31/18 05/29/19 History zolpidem [Ambien] 10 mg PO HS 12/31/18 05/29/19 History bupropion HCl 150 mg PO BID 05/29/19 05/29/19 History clopidogrel 75 mg PO DAILY 05/29/19 05/29/19 History ergocalciferol (vitamin D2) 50,000 unit PO WK 05/29/19 05/29/19 History furosemide 20 mg PO DAILY 05/29/19 05/29/19 History glipizide 2.5 mg PO DAILY 05/29/19 05/29/19 History hydrocodone-acetaminophen 1 tab PO Q6H PRN 05/29/19 05/29/19 History isosorbide dinitrate 20 mg PO TID 05/29/19 05/29/19 History lorazepam 0.5 mg PO TID PRN 05/29/19 05/29/19 History metoprolol succinate 0.5 mg PO DAILY 05/29/19 05/29/19 History simvastatin 20 mg PO HS 05/29/19 05/29/19 History vit C,J-Xd-gjyur-lutein-zeaxan 1 tab PO BID 05/29/19 05/29/19 History [PreserVision AREDS-2] Past Med/Surg History Medical History Left bundle branch block (Chronic) noted on 05/16/19 following TAVR GERD (gastroesophageal reflux disease) (Chronic) Carotid stenosis (Chronic) COPD (chronic obstructive pulmonary disease) (Chronic) Osteoporosis (Chronic) CKD (chronic kidney disease), stage III (Chronic) Dyslipidemia (Chronic) Aortic valve stenosis (Chronic) HTN (hypertension) (Chronic) Surgical History S/P TAVR (transcatheter aortic valve replacement) (Chronic) 05/15/[address] [place] [facility] H/O laminectomy (Chronic) History of hysterectomy (Chronic) H/O hernia repair (Chronic) Status post total hip replacement, right (Chronic) History of cataract surgery (Chronic) S/P tonsillectomy and adenoidectomy (Chronic) S/P cholecystectomy (Chronic) Family History Other Stroke Social History Preferred Language: Kyrgyz Communication Ability: Effective Beliefs That Will Affect Care: None Current Living Situation: Spouse Feels Safe at Home: Yes Smoking Status: Former smoker Tobacco Type: cigarettes ; Hx Alcohol Use: No Hx Substance Use: No Review of Systems Review of Systems: At least ten systems reviewed and negative except as noted in the HPI. Physical Exam Physical Exam: General Appearance: WD/WN, vitals as above, NAD, sitting up in bed, pleasant, conversing easily Head: normocephalic, atraumatic Eyes: normal inspection, PERRL, conjunctivae normal, anicteric sclerae ENT: external ear and nose normal, oropharynx normal, no rash or edema Neck: trachea midline, no thyromegaly normal visual inspection Respiratory: normal respiratory effort, lungs clear to auscultation, no wheeze, rales, rhonchi. Normal insp/exp effort, no accessory muscle use Cardiovascular: regular rate, rhythm, no murmur appreciated, normal peripheral pulses. Vessels: no JVD or carotid bruit Chest: normal inspection of chest Abdomen/GI: normal bowel sounds, soft, nontender, no hepatosplenomegaly Extremities/Musculoskelatal: no cyanosis or clubbing, extremities motor strength 5/5 Neurologic: PERRL, EOMI, accommodation nl, no face palsy, no dysarthria CN's II-XI intact bilaterally and moves all extremities. No motor or sensory deficits on exam. No ambulatory deficits. Psychiatric: A+Ox3, euthymic affect Skin: no rashes, normal color, warm/dry Results & Data Vital Signs (Past 12 Hours) Vital Signs Temp Pulse Resp BP Pulse Ox 05/29/19 15:30 73 15 140/76 05/29/19 15:14 72 18 132/87 05/29/19 14:15 37.0 C 82 18 150/66 H 95 Laboratory Results Short CBC 05/29/19 Range/Units 14:28 WBC 6.64 (4.8-10.8) K/uL Hgb 12.8 (12.0-16.0) g/dL Hct 40.4 (37-47) % Plt Count 234 (130-400) K/uL BMP 05/29/19 14:28 Sodium 141 Potassium 3.6 Chloride 103 Carbon Dioxide 29 BUN 19 H Creatinine 1.55 H Glucose 110 H Calcium 9.0 Cardiac Enzymes 05/29/19 Range/Units 14:28 Troponin I < 0.015 (0-0.045) ng/ml Liver Function 05/29/19 Range/Units 14:28 Total Bilirubin 0.6 (0.2-1) mg/dl AST 9 L (15-37) U/L ALT 13 (12-78) U/L Alkaline Phosphatase 67 (45-117) U/L Albumin 3.6 (3.4-5.0) gm/dl Diagnostic Findings Head CT: IMPRESSION: 1. No acute intracranial findings. 2. Mild sphenoid sinus mucosal thickening. Trace fluid within the right mastoid air cells. CXR: IMPRESSION: No acute cardiopulmonary abnormality. ECG Rhythm: normal sinus Findings: + LBBB Code Status & VTE Plan VTE Prophylaxis Plan VTE Prophylaxis will be ordered: Yes Supervising Physician Co-Signing Physician Notes I have seen and assessed the patient with physician automotive parts counter assistant and agree with the assessment and plan as above and would like to comment that This is a 83 year old female with history of TAVR this year, with complaints of oral paresthesia/facial numbness preceeded by a warm sensation that comes up from her feet to her head. Patient also reports she has had these waves of sensations even prior to the TAVR but it never bothered her lips before. at this time, there does not appear to be gross abnormalities in lab work up or electrolytes that explains for sensations. have discussed with patient about proceeding to Brain MRI if tolerated and non contraindicated. Because of history of TAVR, a cardiac echocardiogram ordered. patient agrees to be observed in the hospital in case of any acute neurological symptoms agree with assessment and plan of physician automotive parts counter assistant on other health issues On exam Neurological: no gross focal motor deficits on exam, patient speaking as per baseline, no apparent facial asymmetry Heart: regular rate and rhythm Lungs: clear to auscultation bilaterally abdomen: soft, nontender, positive bowel sounds Extremities: no gross edema Psych: awake and alert and oriented, verbal, cooperative My colleague Dr. Lynch will follow the patient starting on 05/30/19
[2019-05-29] MEDS ORDERED: HYDROCODONE/ACETAMOPHEN 5/325MG TAB PO PRN (20:08)
[2019-05-29] MEDS ORDERED: SODIUM CHLORIDE 0.9% 500 ML IV SCH (20:08)
[2019-05-29] MEDS ORDERED: POLYETHYLENE (MIRALAX) 17 GM PACK PO PRN (20:08)
[2019-05-29] MEDS ORDERED: LORazepam 0.5 MG TAB PO PRN (20:08)
[2019-05-29] MEDS ORDERED: MECLIZINE HCL 25 MG TAB PO PRN (20:08)
[2019-05-29] MEDS ORDERED: ACETAMINOPHEN 325 MG TAB PO PRN (20:08)
[2019-05-29] MEDS ORDERED: PHARMACIST DISCHARGE MED REC CONSULT SCH (20:47)
[2019-05-29] MEDS ORDERED: ALBUT/IPRATROP 3MG/0.5MG NEB 3 ML VIAL INH SCH (21:00)
[2019-05-29] MEDS ORDERED: SIMVASTATIN 20 MG TAB PO SCH (21:00)
[2019-05-29] MEDS ORDERED: ZOLPIDEM TARTRATE 10 MG TAB PO SCH (21:00)
[2019-05-29] MEDS ORDERED: GADOBUTROL 65ML VIAL IV PRN (21:16)
--- NOTE | 2019-05-29 21:29 | Magnetic Resonance Report ---
MR brain wo/w con CLINICAL HISTORY: 83 years-old Female presenting with stroke symptoms, history of heart valve replace ment on 05/15/2019, incomplete return to baseline following surgery, facial numbness and lip numbness today. TECHNIQUE: Multisequence, multiplanar MR imaging of the brain was performed before and after the admi nistration of intravenous contrast. IV contrast: 7.5 mL of Gadavist. COMPARISON: Noncontrast CT head performed earlier the same day. FINDINGS: Localizer images: Unremarkable. Bone marrow signal intensity within the calvarium within normal limits. Normal midline sagittal structures. Ventricles and sulci normal in size. No mass effect or midline sh ift. No restricted diffusion or hemorrhage. Periventricular and subcortical white matter T2/FLAIR hyp erintensity, nonspecific but likely indicative of chronic small vessel ischemic change. No abnormal p arenchymal enhancement. No extra-axial fluid collection. T2 skull base flow voids preserved. Mucosal thickening in paranasal sinuses. Trace fluid in the right mastoid air cells. [place] lenses are absent. IMPRESSION: 1. Chronic small vessel ischemic change. No acute intracranial abnormality. No abnormal enhancement. Electronically signed by: Zain Landeros M.D. 05/29/2019 9:28 PM
[2019-05-29] MEDS: IPRATROPIUM BROMIDE/ALBUTEROL respimat INH INH SCH (22:00)
[2019-05-29] MEDS: BuPROPion SR 150 MG TABCR PO SCH (22:01)
[2019-05-29] MEDS: CEROVITE ADV FORMULA TAB PO SCH (22:01)
[2019-05-29] MEDS: HEPARIN SOD 5,000 UNIT/0.5 ML VIAL SQ SCH (22:04)
--- NOTE | 2019-05-29 22:53 | Ultrasound Report ---
US carotid doppler BI CLINICAL HISTORY: 83 years-old Female presenting with Stroke. TECHNIQUE: Real-time grayscale and color and spectral Doppler ultrasound imaging of the bilateral car otid arteries was performed. Stenosis measurements were based on NASCET-like criteria (distal lumen d iameter as the denominator for stenosis measurement). COMPARISON: None. FINDINGS: RIGHT: Common carotid artery (CCA): Patent. Peak systolic velocity (PSV) 80 cm/s. Internal carotid artery (ICA): Patent. PSV 126 cm/s. End diastolic velocity (EDV) 13 cm/s. ICA/CCA (systolic) ratio: 1.6. External carotid artery (ECA): Patent. PSV 101 cm/s. LEFT: CCA: Atherosclerosis at the carotid bulb. PSV 106 cm/s. ICA: Patent. PSV 77 cm/s. EDV 25 cm/s. ICA/CCA (systolic) ratio: 0.7. ECA: Patent. PSV 63 cm/s. Bilateral antegrade flow within the vertebral arteries. Blood pressure: Brachial: Right: 138/69 mmHg, Left: 119/64 mmHg. Reference ranges: Stenosis measurements are compared to reference velocity parameters by the Society of Radiologists in Ultrasound (SRU) consensus and Sonographic NASCET index (S-NASCET). * SRU Primary parameters: ICA PSV <125 cm/s = normal or less than 50% stenosis; ICA PSV 125-230 cm/s = 50-69% stenosis; ICA PSV >230 cm/s = greater than or equal to 70% stenosis. * SRU Additional parameters: ICA/CCA PSV ratio <2 = normal or less than 50% stenosis; ratio 2-4 = 5 0-69% stenosis; ratio >4 = greater than or equal to 70% stenosis. ICA EDV <40 cm/s = normal or less t lopez 50% stenosis; ICA EDV 40-100 cm/s = 50-69% stenosis; ICA EDV >100 cm/s = greater than or equal to 70% stenosis. * S-NASCET parameters: Deceleration spectral broadening + PSV <125 cm/s = less than 50% stenosis; pa nsystolic spectral broadening + PSV <125 cm/s = 16-49% stenosis; pansystolic spectral broadening + PS V >125 cm/s + EDV <110 cm/s or ICA/CCA PSV ratio 2-4 = 50-69% stenosis; pansystolic spectral broadeni ng + PSV >270 cm/s OR EDV >110 cm/s OR ICA/CCA PSV ratio >4 = 70-79% stenosis; EDV >140 cm/s = 80-99% stenosis. IMPRESSION: 1. No hemodynamically significant stenosis seen within the carotid arteries. Electronically signed by: Zain Landeros M.D. 05/29/2019 10:50 PM
--- NOTE | 2019-05-29 23:08 | Emergency Department Note ---
Entered by Isamar Parry acting as a scribe for Chuck Mcghee MD ED Provider Note CHIEF COMPLAINT: Tongue numbness, feeling flushed HISTORY OF PRESENT ILLNESS: The patient is a 83 year old female who presents to the Emergency Room with complaints of intermittent tongue numbness and feeling flushed beginning three hours ago while she was watching TV. She states the numbness is located on both sides of her mouth as well as her lips. The patient had a valve replacement checkup two days ago, for a replacement she had at the end of last month. The valve was replaced due to a sticky valve. She had two catheterizations before that. However, the patient states she has had similar symptoms for a few years that only lasted a couple seconds each. Per EMS, the patient is wearing a halter monitor that fell off last night. She is worried she did not put it back no correctly. The patient complains of tongue numbness and feeling flushed. The patient also has an irregular heart rate. Pt denies LOC, headache, fevers, chills, diaphoresis, visual changes, neck pain, chest pain, nausea, vomiting, abdominal pain, back pain, melena, hematochezia, urinary symptoms, lymphadenopathy, rash, or other complaints. REVIEW OF SYSTEMS: See HPI for pertinent positives and negatives. A total of ten systems were reviewed and were otherwise negative. PMHx/PSHx: Hypertension, carotid stenosis, CKD. SOCIAL HISTORY: Patient lives at home. PHYSICAL EXAM: GENERAL: Awake, alert, well-appearing, in no distress HENT: Normocephalic, atraumatic. Oropharynx unremarkable. EYES: PERRL. Normal conjunctiva. Sclera non-icteric. NECK: Inspection normal. Non-tender. Supple. No nuchal rigidity. FROM. No masses. RESPIRATORY: Clear to auscultation. No wheezes. No rales. Normal respiratory effort. CARDIAC: Normal rate. Normal rhythm. Holosystolic murmur. No rubs. Extremities warm and well perfused. Pulses equal. No JVD. GI: Soft, non-distended. No tenderness to palpation. No rebound or guarding. No masses. RECTAL: Deferred. MUSCULOSKELETAL: Atraumatic. Chest examination reveals no tenderness. The back is symmetrical on inspection without obvious abnormality. There is no CVA tenderness to palpation. No joint edema. LOWER EXTREMITIES: Calves are equal size bilaterally and non-tender. No edema. No discoloration. NEURO: No drift, normal ROSS, cranial nerves intact. SKIN: No rash or jaundice noted. EMERGENCY DEPARTMENT COURSE: 1415: Past medical records reviewed. The patient was evaluated in room C11B, and a complete history and physical examination were performed. 1451: reviewing surgical records from [facility]. The patient had a trans catheter aortic valve replacement for severe symptomatic aortic stenosis on 05/15/19. 1635: I spoke with the patient about staying in the hospital for further evaluation, she is in agreement. I paged the [facility] office. 1641: I spoke with Juanis Pham [facility] NIR under Dr. Cruz, about the patients case who agreed to accept the patient for further evaluation. 1700: The patient was admitted. MEDICAL DECISION MAKING: C11 Prior records/ancillary studies reviewed. The patient had an catheter aortic valve replacement done on May 15 at [facility]. Nursing notes reviewed and agree them. The patient's history was concerning for facial and tongue numbness with recent aortic valve replacement. Differential diagnosis: Etiologies such as CVA, TIA, metabolic, infection, hypo/hyperglycemia, electrolyte abnormalities, cardiac sources, intracerebral event, toxicologic, neurologic, as well as others were entertained. Physical examination: As above. ER treatment provided: IV Lock Normal saline Monitor On reassessment the patient felt the same. Diagnostics interpretation by me: ECG: Sinus rhythm with left bundle branch block noted. This is new. The patient has no chest pain. The labs revealed an unremarkable CBC and chemistry panel. Troponin negative. Imaging studies: Chest x-ray negative. CT scan of the head negative for any acute bleed or pathology. The patient has very minor neurologic symptoms. No stroke was seen on CT. The patient is at risk given her recent aortic valve replacement. Because of the recent surgery and the time of onset with the minor symptoms the patient was felt not to be a TPA candidate. Further management work-up in the hospital will be necessary. Consultation: A consultation was placed with the hospitalist. The case was discussed and diagnostics were reviewed. The patient was evaluated in the ER for further treatment. IMPRESSION: Facial Numbness PLAN: Further evaluation by a hospitalist. The scribe's documentation has been prepared under my direction and personally reviewed by me in its entirety. I confirm that the note above accurately reflects all work, treatment, procedures, and medical decision making performed by me. Impression & Plan Facial numbness Past Med/Surg History Medical History Left bundle branch block (Chronic) noted on 05/16/19 following TAVR GERD (gastroesophageal reflux disease) (Chronic) Carotid stenosis (Chronic) COPD (chronic obstructive pulmonary disease) (Chronic) Osteoporosis (Chronic) CKD (chronic kidney disease), stage III (Chronic) Dyslipidemia (Chronic) Aortic valve stenosis (Chronic) HTN (hypertension) (Chronic) Surgical History S/P TAVR (transcatheter aortic valve replacement) (Chronic) 05/15/[address] Bearden at [facility] H/O laminectomy (Chronic) History of hysterectomy (Chronic) H/O hernia repair (Chronic) Status post total hip replacement, right (Chronic) History of cataract surgery (Chronic) S/P tonsillectomy and adenoidectomy (Chronic) S/P cholecystectomy (Chronic) Family History Other Stroke Social History Preferred Language: Mohawk Communication Ability: Effective Beliefs That Will Affect Care: None Current Living Situation: Spouse Other Information That Helps Us Care for You: No Feels Safe at Home: Yes Safety Concerns: Feels Safe At This Time Smoking Status: Former smoker Tobacco Type: cigarettes ; Hx Alcohol Use: No Hx Substance Use: No Results & Data Vital Signs Vital Signs - 24 hr 05/29/19 14:15 05/29/19 15:14 05/29/19 15:30 Temperature 37.0 C Temperature Source Oral Sepsis Recent Fever Within 48 Hours No Sepsis New/Unexplained Change in Mental Status No Sepsis Action Taken by Nursing No Action Required Pulse Rate 82 72 73 Respiratory Rate 18 18 15 Respiratory Effort / Characteristics Non-Labored Spontaneous Respiratory Depth Normal Respiratory Pattern Regular Blood Pressure 150/66 H 132/87 140/76 Blood Pressure Mean 94 102 97 Pulse Oximetry 95 Oxygen Delivery Method Room Air Home Medications Current Medication List: was personally reviewed by me Laboratory Data Attestation: I reviewed the patient's lab results. Result diagrams: 05/29/19 14:28 05/29/19 14:28 Lab Results 05/29/19 05/29/19 05/29/19 Range/Units 14:28 14:28 14:28 WBC 6.64 (4.8-10.8) K/uL RBC 4.20 (4.2-5.4) M/uL Hgb 12.8 (12.0-16.0) g/dL Hct 40.4 (37-47) % MCV 96.2 (80-100) fL MCH 30.5 (25-34) pg MCHC 31.7 L (32-36) g/dL RDW Std Deviation 52.4 H (36.4-46.3) fL RDW Coeff of Anson 14.9 H (11.5-14.5) % Plt Count 234 (130-400) K/uL MPV 10.0 (7.4-10.4) fL Immature Gran % (Auto) 0.2 % Neut % (Auto) 68.4 % Lymph % (Auto) 18.8 % Gove % (Auto) 10.1 % Eos % (Auto) 2.0 % Baso % (Auto) 0.5 % Immature Gran # (Auto) 0.01 (0.00-0.02) K/uL Neut # (Auto) 4.55 (1.4-6.5) K/uL Lymph # (Auto) 1.25 (1.2-3.4) K/uL Gove # (Auto) 0.67 H (0.11-0.59) K/uL Eos # (Auto) 0.13 (0-0.5) K/uL Baso # (Auto) 0.03 (0-0.2) K/uL PT 10.9 (9.0-12.0) Seconds INR 1.1 (0.9-1.1) APTT 25.9 (21.0-31.0) Seconds PTT Ratio 1.0 Sodium 141 (136-145) mmol/L Potassium 3.6 (3.5-5.1) mmol/L Chloride 103 (98-107) mmol/L Carbon Dioxide 29 (21-32) mmol/L Anion Gap 8.0 (3-11) BUN 19 H (7-18) mg/dl Creatinine 1.55 H (0.6-1.2) mg/dl Est Cr Clr Drug Dosing 26.8 ml/min Est GFR ( Amer) 35.8 Est GFR (Non-Af Amer) 30.9 BUN/Creatinine Ratio 12.1 (10-20) Glucose 110 H (70-99) mg/dl POC Glucose (70-99) Calcium 9.0 (8.5-10.1) mg/dl Magnesium 2.3 (1.8-2.4) mg/dl Total Bilirubin 0.6 (0.2-1) mg/dl AST 9 L (15-37) U/L ALT 13 (12-78) U/L Alkaline Phosphatase 67 (45-117) U/L Troponin I < 0.015 (0-0.045) ng/ml Total Protein 6.9 (6.4-8.2) gm/dl Albumin 3.6 (3.4-5.0) gm/dl Globulin 3.3 (2.5-4.0) gm/dl Albumin/Globulin Ratio 1.1 (0.9-2) 05/29/19 Range/Units 14:41 WBC (4.8-10.8) K/uL RBC (4.2-5.4) M/uL Hgb (12.0-16.0) g/dL Hct (37-47) % MCV (80-100) fL MCH (25-34) pg MCHC (32-36) g/dL RDW Std Deviation (36.4-46.3) fL RDW Coeff of Anson (11.5-14.5) % Plt Count (130-400) K/uL MPV (7.4-10.4) fL Immature Gran % (Auto) % Neut % (Auto) % Lymph % (Auto) % Gove % (Auto) % Eos % (Auto) % Baso % (Auto) % Immature Gran # (Auto) (0.00-0.02) K/uL Neut # (Auto) (1.4-6.5) K/uL Lymph # (Auto) (1.2-3.4) K/uL Gove # (Auto) (0.11-0.59) K/uL Eos # (Auto) (0-0.5) K/uL Baso # (Auto) (0-0.2) K/uL PT (9.0-12.0) Seconds INR (0.9-1.1) APTT (21.0-31.0) Seconds PTT Ratio Sodium (136-145) mmol/L Potassium (3.5-5.1) mmol/L Chloride (98-107) mmol/L Carbon Dioxide (21-32) mmol/L Anion Gap (3-11) BUN (7-18) mg/dl Creatinine (0.6-1.2) mg/dl Est Cr Clr Drug Dosing ml/min Est GFR ( Amer) Est GFR (Non-Af Amer) BUN/Creatinine Ratio (10-20) Glucose (70-99) mg/dl POC Glucose 109 H (70-99) Calcium (8.5-10.1) mg/dl Magnesium (1.8-2.4) mg/dl Total Bilirubin (0.2-1) mg/dl AST (15-37) U/L ALT (12-78) U/L Alkaline Phosphatase (45-117) U/L Troponin I (0-0.045) ng/ml Total Protein (6.4-8.2) gm/dl Albumin (3.4-5.0) gm/dl Globulin (2.5-4.0) gm/dl Albumin/Globulin Ratio (0.9-2) Administered Medications Hydrocodone Bitart/Acetaminophen ([place] 5/325) 1 tab PO Q6H PRN PRN Reason: Pain Stop: 06/12/19 20:07 Last Admin: 05/29/19 21:56 Dose: 1 tab Documented by: [id number] Albuterol (Combivent Respimat) 1 puffs INH QIDR [facility] Stop: 06/28/19 20:59 Last Admin: 05/29/19 22:00 Dose: 1 puffs Documented by: [id number] Bupropion HCl (Wellbutrin-Sr) 150 mg PO BID [facility] Stop: 06/28/19 20:59 Last Admin: 05/29/19 22:01 Dose: 150 mg Documented by: [id number] Gadobutrol (Gadavist 65ml) 7.5 ml IV ONCE PRN PRN Reason: Interaction Checking Stop: 06/02/19 21:15 Last Admin: 05/29/19 21:16 Dose: 7.5 ml Documented by: [id number] Heparin Sodium (Porcine) (Heparin Sodium (Porcine)) 5,000 units SQ Q8 [facility] Stop: 06/28/19 21:59 Last Admin: 05/29/19 22:04 Dose: Not Given Documented by: [id number] Sodium Chloride (Nss) 500 mls @ 80 mls/hr IV .Q6H15M [facility] Stop: 05/30/19 02:22 Last Admin: 05/29/19 21:56 Dose: 80 mls/hr Documented by: [id number] Multivitamins/Minerals (Multivitamin W/ Minerals Tab) 1 tab PO BID [facility] Stop: 06/28/19 20:59 Last Admin: 05/29/19 22:01 Dose: 1 tab Documented by: [id number] Simvastatin (Zocor) 20 mg PO HS [facility] Stop: 06/28/19 20:59 Last Admin: 05/29/19 22:02 Dose: 20 mg Documented by: [id number] Zolpidem Tartrate (Ambien) 10 mg PO HS TONG Stop: 06/28/19 20:59 Last Admin: 05/29/19 21:56 Dose: 10 mg Documented by: [id number] Discontinued Medications Sodium Chloride (Nss 1000ml) 1,000 mls @ 50 mls/hr IV .Q20H [facility]ONG Stop: 06/28/19 14:29 Last Admin: 05/29/19 14:52 Dose: 50 mls/hr Documented by: [id number] Imaging Data Radiologist's Impression: Radiology results as stated below per my review and the radiologist's interpretation: CT OF THE HEAD WITHOUT CONTRAST CLINICAL HISTORY: Stroke evaluation , facial numbness COMPARISON STUDY: No previous studies for comparison. CT DOSE: 729.78 mGycm TECHNIQUE: Helical axial images of the head were obtained without IV contrast. Automated exposure control was utilized for the study. A dose lowering technique was utilized adhering to the principles of ALARA. FINDINGS: No acute intracranial hemorrhage, midline shift or mass effect is present. The ventricular system is unremarkable. The basilar cisterns are busby nt. No extra-axial collections are present. There are no findings to suggest acute dural sinus thrombosis or acute territorial infarct. No significant calvarial abnormalities are present. Mild sphenoid sinus mucosal thickening is noted. There is trace fluid within the right mastoid air cells. IMPRESSION: 1. No acute intracranial findings. 2. Mild sphenoid sinus mucosal thickening. Trace fluid within the right mastoid air cells. Electronically signed by: Jamaal Phan M.D. 05/29/2019 2:57 PM SINGLE VIEW CHEST CLINICAL HISTORY: Facial numbness. FINDINGS: 2 AP, portable, upright chest radiographs are compared to study dated 12/31/2018. The examination is degraded by portable technique and patient rotation. The cardiomediastinal silhouette is unremarkable noting atherosclerotic calcification of the thoracic aorta. There is chronic elevation of the left hemidiaphragm with associated atelectasis. There are scattered calcified granulomas. No airspace consolidation or large pleural effusion is identified There is no pneumothorax. The skeletal structures are osteopenic. The bony thorax appears intact. Fusion hardware is partially imaged in the upper lumbar spine. IMPRESSION: No acute cardiopulmonary abnormality. Electronically signed by: Riley Hernandez M.D. 05/29/2019 3:08 PM ECG Data Attestation: I personally reviewed and interpreted this ECG as follows: Indication: other (numbness) Rate (beats per minute): 77 Rhythm: normal sinus Findings: + other (fusion complex present) and + LBBB; no ST elevation Comparison ECG Date: from (01/02/19) Change: the following changes noted (LBBB new) Blood Pressure Blood Pressure Findings: Elevated blood pressure Blood Pressure Disposition: further management by hospitalist Discharge Plan Visit Data *Final* Discharge Date/Time: 05/29/19 19:29 Chief Complaint: Cardiac Assessment ED Provider: Chuck Mcghee Discharge Problem: Facial numbness Patient Disposition: Admitted As Inpatient Discharge Instructions Interventions: ED Discharge Assessment Last Done: 05/29/19 19:29 The scribe's documentation has been prepared under my direction and personally reviewed by me in its entirety. I confirm that the note above accurately reflects all work, treatment, procedures, and medical decision making performed by me.
[2019-05-30] MEDS: HEPARIN SOD 5,000 UNIT/0.5 ML VIAL SQ SCH (06:14)
[2019-05-30 07:24] LABS: Hematocrit (blood only) 40.6 % (37-47); Hemoglobin 12.9 g/dL (12.0-16.0); Mean Corpuscular Hgb Conc 31.8 g/dL (32-36); Mean Corpuscular Volume 97.1 fL (80-100); Mean Platelet Volume 10.4 fL (7.4-10.4); Platelet Count 207 K/uL (130-400); RDW Coefficient of Variation 14.8 % (11.5-14.5); RDW Standard Deviation 52.6 fL (36.4-46.3); Red Blood Count 4.18 M/uL (4.2-5.4)
[2019-05-30 08:01] LABS: BUN Creatinine Ratio 13.1 (10-20); Calcium 8.9 mg/dl (8.5-10.1); Creatinine Clr Calc Pharmacy 31.4 ml/min; Est GFR (African American) 43.8; Est GFR (Non-African American) 37.8; Potassium 3.5 mmol/L (3.5-5.1)
[2019-05-30] MEDS: ISOSORBIDE DINITRATE 20 MG TAB PO SCH ×2 (08:43→12:24)
[2019-05-30] MEDS: CEROVITE ADV FORMULA TAB PO SCH (08:44)
[2019-05-30] MEDS: IPRATROPIUM BROMIDE/ALBUTEROL respimat INH INH SCH ×2 (08:44→12:24)
[2019-05-30] MEDS: BuPROPion SR 150 MG TABCR PO SCH (08:44)
[2019-05-30] MEDS ORDERED: FUROSEMIDE 20 MG TAB PO SCH (09:00)
[2019-05-30] MEDS ORDERED: METOPROLOL SUCC 25MG EXT REL TAB PO SCH (09:00)
[2019-05-30] MEDS ORDERED: ASPIRIN 81 MG ECTAB PO SCH (09:00)
[2019-05-30] MEDS ORDERED: CLOPIDOGREL BISULFATE 75 MG TAB PO SCH (09:00)
[2019-05-30] MEDS ORDERED: AMLODIPINE BESYLATE 5 MG TAB PO SCH (09:00)
--- NOTE | 2019-05-30 13:16 | Neurology Consultation ---
Date of Consultation May 30, 2019 Assessment & Plan (1) Facial numbness: 1. MRI - no acute findings 2. continue aspirin 81 mg and plavix 75 mg daily 3. carotid doppler - no sigificant stenosis 4. optimize htn, HLD, DM LDL <70 5. possible new heart block being monitored with ZIO - cardiology to follow 6. speech, PT/OT for discharge needs- does not seem to have any deficits 7. CTA head and neck for basil artery stenosis cause of transit numbness further recommendations after imaging is completed. Supervising Physician Co-Signing Physician Notes I have seen and discussed above patient with Dr Chuck Wolf, neurology I have interviewed and briefly examined this woman, discussed her case with Rizwana Elkins PA-C and have reviewed the imaging studies we have today. The has had recurrent episodes of ascending warmth and paresthesias involving her legs torso arms and face on 3 occasions yesterday and with onset several weeks after performance of an aortic valve replacement which was otherwise uncom plicated and she is still wearing a ZIO Patch to detect possible AV conduction abnormalities following this but did not report any palpitations or sense of impending syncope or indeed any other symptoms other than the warmth and the paresthesias When pressed she will admit to having episodes of similar type over the years perhaps most recent being a year or so ago and on these occasions the warm sensation is generally all she has without the numbness and tingling and these are new symptoms. There is no history for migraines or indeed any other issues of this type and she does not have any altered consciousness during these events She is now been back to baseline with no symptoms for close to 24 hours At this point I only other suggest we do a CT angiogram of the neck and intracranial vessels just to be certain we do not have a superimposed basilar artery stenosis or vertebral artery stenosis syndrome frankly suspect or not can see much and if the test is negative I would discharge her on her current antiplatelet regimen and have the cardiovascular service at [facility] review the ZIO monitoring when is available I will check back tomorrow but if she has a test done today and indeed there is no significant stenoses then she probably could be discharged and follow-up with vascular surgery as previously scheduled I do not think she needs to see neurology on a regular basis unless these events continue to occur We would however be quite willing to assess her if her primary care physician or the vascular surgery service wishes us to Chuck Wolf MD History of Present Illness Reason for Consultation: facial numbness Requesting Physician: Hamlet Lynch MD Attending Physician: Hamlet Lynch MD History of Present Illness Makenna is an 83 year old female with PMH - severe aortic stenosis s/p TAVR on 05/15/19 at [facility], HTN, CKD III, CAD, diastolic dysfunction,GERD, with facial numbness starting at noon. She underwent TAVR at [facility] on May 15, 2019 and diagnosed with new left bundle branch block she has been monitored with ZIO for 10 days. Has felt fine since discharge until she stated having waves of "hot from feet up" with associated lip, tongue and face numbness, that are intermittent but recurred all afternoon prior to her presentation in the ED. She has been taking all medications as scheduled, including aspirin and Plavix. She states the numbness in her face and tongue continued until she arrived at the ED but all has resolved now. She has not started or stopped any new medications and she has not had vertigo symptoms needing meclizine. Denies CP, SOB, abdominal pain, one sided weakness, numbness tingling, bowel or bladder issues, N, V, headache, vision changes. Allergies Allergy/AdvReac Type Severity Reaction Status Date / Time Sulfa (Sulfonamide Allergy Mild "SULFA Verified 05/29/19 16:22 Antibiotics) DRUGS": UNKNOWN atenolol Allergy Unknown RASH AND Verified 05/29/19 16:22 ITCHING-TAKES TOPROL-XL AT HOME lisinopril AdvReac Unknown COUGH Unverified 05/29/19 16:22 Home Medications Home Medications Medication Instructions Recorded Confirmed Type Combivent Respimat 1 puff INHALATION QID 12/31/18 05/29/19 History amlodipine 5 mg PO DAILY 12/31/18 05/29/19 History aspirin 81 mg PO DAILY 12/31/18 05/29/19 History ipratropium-albuterol 3 ml INHALATION QID 12/31/18 05/29/19 History meclizine 25 mg PO TID PRN 12/31/18 05/29/19 History zolpidem [Ambien] 10 mg PO HS 12/31/18 05/29/19 History bupropion HCl 150 mg PO BID 05/29/19 05/29/19 History clopidogrel 75 mg PO DAILY 05/29/19 05/29/19 History ergocalciferol (vitamin D2) 50,000 unit PO WK 05/29/19 05/29/19 History furosemide 20 mg PO DAILY 05/29/19 05/29/19 History glipizide 2.5 mg PO DAILY 05/29/19 05/29/19 History hydrocodone-acetaminophen 1 tab PO Q6H PRN 05/29/19 05/29/19 History isosorbide dinitrate 20 mg PO TID 05/29/19 05/29/19 History lorazepam 0.5 mg PO TID PRN 05/29/19 05/29/19 History metoprolol succinate 0.5 mg PO DAILY 05/29/19 05/29/19 History simvastatin 20 mg PO HS 05/29/19 05/29/19 History vit C,Q-Xb-lxlmt-lutein-zeaxan 1 tab PO BID 05/29/19 05/29/19 History [PreserVision AREDS-2] Patient History Medical History Left bundle branch block (Chronic) noted on 05/16/19 following TAVR GERD (gastroesophageal reflux disease) (Chronic) Carotid stenosis (Chronic) COPD (chronic obstructive pulmonary disease) (Chronic) Osteoporosis (Chronic) CKD (chronic kidney disease), stage III (Chronic) Dyslipidemia (Chronic) Aortic valve stenosis (Chronic) HTN (hypertension) (Chronic) Surgical History S/P TAVR (transcatheter aortic valve replacement) (Chronic) 05/15/[address] Bearden at [facility] H/O laminectomy (Chronic) History of hysterectomy (Chronic) H/O hernia repair (Chronic) Status post total hip replacement, right (Chronic) History of cataract surgery (Chronic) S/P tonsillectomy and adenoidectomy (Chronic) S/P cholecystectomy (Chronic) Family History Other Stroke Social History Preferred Language: Slovenian Communication Ability: Effective Beliefs That Will Affect Care: None marital status: Current Living Situation: Spouse Other Information That Helps Us Care for You: No Feels Safe at Home: Yes Safety Concerns: Feels Safe At This Time Smoking Status: Former smoker Tobacco Type: cigarettes ; Hx Alcohol Use: No Hx Substance Use: No Physical Exam Physical Exam: Physical Exam: Constitutional: appearance over nourished, healthy and normal Ears, Nose, Mouth and Throat: mucous membranes moist, no injection and skin normal, eyes normal Cardiovascular: normal S-1 and S-2 and regular rate and rhythm, systolic murmer Respiratory: clear to auscultation (CTA) and no rales, ronchi or wheeze Musculoskeletal: non pitting peripheral edema and good distal pulses Skin: no stigmata of neurocutaneous disease noted and normal and intact Eyes: extraocular muscles intact (EOMI) and pupils equal, round and reactive to light (PERRL) NEUROLOGIC EXAMINATION: Mental status: Alert and interactive Oriented to full date and location Oriented to person Speech fluent with no evidence of aphasia Cranial Nerves smile eye brow raise symmetric, tongue midline Reflexes: Deep tendon reflexes were symmetrical and graded 2/5. down going toes Sensory: intact to light and cool touch Coordination: finger to nose no bi pass Gait/Stance: Posture normal. lying in bed Motor: Negative for pronator drift of out stretched arms with eyes closed. 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 bilaterally, hip flex patellar flex ext plantar flex ext 5/5 bilaterally Results & Data Vital Signs (Past 12 Hours) Vital Signs Temp Pulse Resp BP Pulse Ox 05/30/19 11:46 37.4 C 85 18 122/73 94 05/30/19 07:30 36.8 C 83 18 145/80 H 90 05/30/19 03:13 36.7 C 76 19 157/74 H 94 Laboratory Results Abnormal lab results 05/29/19 05/29/19 05/29/19 Range/Units 14:28 14:28 14:41 RBC (4.2-5.4) M/uL MCHC 31.7 L (32-36) g/dL RDW Std Deviation 52.4 H (36.4-46.3) fL RDW Coeff of [place] 14.9 H (11.5-14.5) % [place] # (Auto) 0.67 H (0.11-0.59) K/uL BUN 19 H (7-18) mg/dl Creatinine 1.55 H (0.6-1.2) mg/dl Glucose 110 H (70-99) mg/dl POC Glucose 109 H (70-99) Ionized Calcium (1.12-1.32) mmol/L AST 9 L (15-37) U/L 05/30/19 05/30/19 05/30/19 Range/Units 07:06 07:06 07:06 RBC 4.18 L (4.2-5.4) M/uL MCHC 31.8 L (32-36) g/dL RDW Std Deviation 52.6 H (36.4-46.3) fL RDW Coeff of [place] 14.8 H (11.5-14.5) % [place] # (Auto) (0.11-0.59) K/uL BUN (7-18) mg/dl Creatinine 1.31 H (0.6-1.2) mg/dl Glucose 120 H (70-99) mg/dl POC Glucose (70-99) Ionized Calcium 1.11 L (1.12-1.32) mmol/L AST (15-37) U/L 05/30/19 05/30/19 Range/Units 07:20 11:14 RBC (4.2-5.4) M/uL MCHC (32-36) g/dL RDW Std Deviation (36.4-46.3) fL RDW Coeff of [place] (11.5-14.5) % [place] # (Auto) (0.11-0.59) K/uL BUN (7-18) mg/dl Creatinine (0.6-1.2) mg/dl Glucose (70-99) mg/dl POC Glucose 118 H 157 H (70-99) Ionized Calcium (1.12-1.32) mmol/L AST (15-37) U/L Diagnostic Findings CT head- no acute intracranial findings. Mild sphenoid sinus mucosal thickening. Trace fluid within the right mastoid air cells. MRI brain-Chronic small vessel ischemic change. No acute intracranial abnormality. No abnormal enhancement. carotid doppler- No hemodynamically significant stenosis seen within the carotid arteries. TTE- EF 55-60% prosthetic aortic valve no ASD 05/15/2019-placed
[2019-05-30] MEDS ORDERED: OPTIRAY 320 125ml IV PRN (15:05)
--- NOTE | 2019-05-30 15:26 | CT Scan Report ---
CT angio neck with con CLINICAL HISTORY: 83 years-old Female presenting with transient numbness of the face and tongue, r/o basilar art occlusion. TECHNIQUE: Multidetector CT angiography of the neck was performed after the administration of intrave nous contrast. 3-D volumetric and/or maximum intensity projection (MIP) images were subsequently maninder nstructed for review. IV contrast: 120 mL of Optiray 320. One or more dose lowering techniques were u sed consistent with the principles of ALARA (as low as reasonably achievable), including automatic ex posure control, mA or kV adjustment to individual patient size, and/or use of iterative reconstructio n. Stenosis measurements were based on NASCET-like criteria (distal lumen diameter as the denominator for stenosis measurement). COMPARISON: Carotid Doppler ultrasound from 05/29/2019. CT DOSE (mGy.cm): The estimated cumulative dose is 1087.16. FINDINGS: Filing Writer topogram: Unremarkable. Aortic arch: Atherosclerosis of the three-vessel aortic arch with patent origins of the branch vessel s. Innominate artery: Patent. Right subclavian artery: Patent. Right common carotid artery: Patent. Right internal and external carotid arteries: Right carotid bifurcation patent. Right internal and ex ternal carotid arteries widely patent. Left common carotid artery: Patent. Left internal and external carotid arteries: Mild calcified and noncalcified atherosclerotic plaque a t the carotid bifurcation without evidence of narrowing of the internal or external carotid arteries. Left subclavian artery: Patent. Vertebral arteries: Codominant vertebral arteries. Calcified atherosclerotic plaque narrows the left vertebral artery at the level of C3 with 75% stenosis. The right vertebral artery is patent throughou t its course. Other: Basilar artery is patent. Soft tissues of the neck normal allowing for the phase of contrast. Degenerative changes of the cervical spine. Lung apices clear. IMPRESSION: 1. 75% stenosis of the left vertebral artery at the level of C3. Otherwise no of dissection, focal v essel occlusion, or significant stenosis of the cervical arteries. Electronically signed by: Zain Landeros M.D. 05/30/2019 3:24 PM
--- NOTE | 2019-05-30 15:28 | CT Scan Report ---
CT angio head wo/w HISTORY: Mental status change transit numbness face tongue r/o basilar art occlu TECHNIQUE: Multiaxial CT angiography of the head was performed IV contrast: None. Maximum intensit y projection images were also obtained. A dose lowering technique was utilized adhering to the princ iplOksana. COMPARISON: None. FINDINGS: There is no mass, hematoma, midline shift, or acute infarct. Visualized intracranial exercise science internship al carotid arteries, distal vertebral arteries, and basilar artery are widely patent. There is no sig nificant stenosis, occlusion, or aneurysm seen within the bilateral ACAs, MCAs, or paying teller. IMPRESSION: No significant stenosis, occlusion, or aneurysm within the [place] of [place]. The above report was generated using voice recognition software. It may contain grammatical, syntax or spelling errors. Electronically signed by: Olu Gotti M.D. 05/30/2019 3:27 PM
--- NOTE | 2019-05-30 15:55 | Hospitalist Progress Note ---
Date of Service May 30, 2019 Assessment & Plan (1) Facial numbness: Patient is an 83 yr female with a PMH of severe aortic stenosis s/p TAVR on 05/15/19 at [facility], HTN, CKD III, CAD, diastolic dysfunction presented with facial numbness Stroke like symptoms Brain MRI:Chronic small vessel ischemic change. No acute intracranial abnormality. No abnormal enhancement. CT Head:No acute intracranial findings. Mild sphenoid sinus mucosal thickening. Trace fluid within the right mastoid air cells. Neck CTA:75% stenosis of the left vertebral artery at the level of C3. Otherwise no of dissection, focal vessel occlusion, or significant stenosis of the cervical arteries. Head CTA:No significant stenosis, occlusion, or aneurysm within the [place] of [place]. Facial numbness/tingling resolved No focal weakness Appreciate Neurology Input Continue aspirin, plavix, statin Neuro checks Needs follow up with Vascular surgery as patient PT, OT, speech therapy evaluations complete (2) Left bundle branch block: New on 05/16/19 following TAVR procedure Discussed at TAVR follow up at [facility], has been wearing ZIO AT for past 3 days for total of 10 No angina symptoms Follow up with cardiology as Outpatient (3) Aortic valve stenosis: (4) S/P TAVR (transcatheter aortic valve replacement): S/p TAVR on May 15 2019 at [facility] Continue aspirin, plavix, statin (5) HTN (hypertension): Normotensive Continue amlodipine, Toprol (6) CKD (chronic kidney disease), stage III: Cr at baseline Monitor renal funciton (7) COPD (chronic obstructive pulmonary disease): Continue home inhalers No signs of exacerbation (8) Dyslipidemia: Continue statin DVT Px: SQ heparin Code status: FULL PCP: Stella Dispo: Plan to discharge home today Subjective Patient is seen and examined at bedside Facial numbness/tingling has resolved No new focal weakness Denies any chest pain, shortness of breath, dizziness, nausea, abdominal pain Discussed with neurology today Review of Systems Review of Systems: All systems reviewed & are unremarkable except as noted in HPI & below Physical Exam Physical Exam: Physical Exam: Vitals signs as noted above General Appearance:no apparent distress Head: normocephalic, Atraumatic Eyes: normal inspection, EOMI Neck: supple, Trachea midline Respiratory/Chest: Normal breath sounds, CTA Cardiovascular: S1, S2, + murmur, ZIO patch on left side Abdomen/GI:Soft, Non tender, Bowel sounds present Extremities/Musculoskelatal:normal inspection, no edema Neurologic/Psych:AAOX3, grossly no focal neurological deficits Skin: normal color, warm Results & Data Vital Signs (Past 12 Hours) Vital Signs Temp Pulse Resp BP Pulse Ox 05/30/19 14:27 92 05/30/19 11:46 37.4 C 85 18 122/73 94 05/30/19 07:30 36.8 C 83 18 145/80 H 90 Laboratory Results Short CBC 05/30/19 Range/Units 07:06 WBC 6.00 (4.8-10.8) K/uL Hgb 12.9 (12.0-16.0) g/dL Hct 40.6 (37-47) % Plt Count 207 (130-400) K/uL BMP 05/30/19 07:06 Sodium 142 Potassium 3.5 Chloride 106 Carbon Dioxide 29 BUN 17 Creatinine 1.31 H Glucose 120 H Calcium 8.9
[2019-05-30] MEDS ORDERED: STROKE PATIENT DISCHARGE STA (16:16)
--- NOTE | 2019-05-30 16:17 | Discharge Summary ---
Date of Service May 30, 2019 Admission HPI Per Admitting Provider This is an 83-year-old female with a PMH of severe aortic stenosis s/p TAVR on 05/15/19 at [facility], HTN, CKD III, CAD, diastolic dysfunction and other medical problems listed below who presents with facial numbness starting at noon today. Patient recently underwent TAVR at [facility] on May 15. Postoperatively, was diagnosed with new left bundle branch block and patient is being monitored with ZIO AT for 10 days. Has felt fine since discharge until today at noon, when she felt "hot from feet up" with associated lip and tongue numbness that are intermittent but recurred all afternoon prior to her presentation in the ED. Denies any difficulty speaking or swallowing. No confusion. No other paresthesias or motor weakness. Denies any fever, chills, lightheadedness, visual changes, headache, chest pain, palpitations, shortness of breath, nausea, vomiting, abdominal pain, dysuria, diarrhea or constipation. Patient has been taking all medications as scheduled, including aspirin and Plavix. In ED, patient afebrile and hemodynamically stable. No leukocytosis. Electrolytes within normal limits. Creatinine 1.55 (at baseline). Troponin negative. Head CT without acute findings. Chest x-ray without acute findings. EKG with sinus rhythm with Fusion complexes and left bundle branch block (first noted on 05/16/19). Admission Exam Per Admitting Provider General Appearance: WD/WN, vitals as above, NAD, sitting up in bed, pleasant, conversing easily Head: normocephalic, atraumatic Eyes: normal inspection, PERRL, conjunctivae normal, anicteric sclerae ENT: external ear and nose normal, oropharynx normal, no rash or edema Neck: trachea midline, no thyromegaly normal visual inspection Respiratory: normal respiratory effort, lungs clear to auscultation, no wheeze, rales, rhonchi. Normal insp/exp effort, no accessory muscle use Cardiovascular: regular rate, rhythm, no murmur appreciated, normal peripheral pulses. Vessels: no JVD or carotid bruit Chest: normal inspection of chest Abdomen/GI: normal bowel sounds, soft, nontender, no hepatosplenomegaly Extremities/Musculoskelatal: no cyanosis or clubbing, extremities motor strength 5/5 Neurologic: PERRL, EOMI, accommodation nl, no face palsy, no dysarthria CN's II-XI intact bilaterally and moves all extremities. No motor or sensory deficits on exam. No ambulatory deficits. Psychiatric: A+Ox3, euthymic affect Skin: no rashes, normal color, warm/dry Principal Diagnosis Facial Numbness Discharge Data Allergies Allergy/AdvReac Type Severity Reaction Status Date / Time Sulfa (Sulfonamide Allergy Mild "SULFA Verified 05/29/19 16:22 Antibiotics) DRUGS": UNKNOWN atenolol Allergy Unknown RASH AND Verified 05/29/19 16:22 ITCHING-TAKES TOPROL-XL AT HOME lisinopril AdvReac Unknown COUGH Unverified 05/29/19 16:22 Consultations 05/29/19 16:43 ED Decision to Admit Stat 05/29/19 20:08 Consult Case Management - Discharge Planning Routine Consult Neurology Routine Procedures Performed Brain MRI:Chronic small vessel ischemic change. No acute intracranial abnormali ty. No abnormal enhancement. CT Head:No acute intracranial findings. Mild sphenoid sinus mucosal thickening. Trace fluid within the right mastoid air cells. Neck CTA:75% stenosis of the left vertebral artery at the level of C3. Otherwise no of dissection, focal vessel occlusion, or significant stenosis of the cervical arteries. Head CTA:No significant stenosis, occlusion, or aneurysm within the [place]. Ordered Studies 05/29/19 14:28 CT head/brain wo con Stat 05/29/19 20:08 MR brain wo/w con Routine US carotid doppler BI Routine 05/30/19 14:00 CT angio head wo/w Routine CT angio neck with con Routine Hospital Course (1) Facial numbness: Patient is an 83 yr female with a PMH of severe aortic stenosis s/p TAVR on 05/15/19 at [facility], HTN, CKD III, CAD, diastolic dysfunction presented with facial numbness Stroke like symptoms Brain MRI:Chronic small vessel ischemic change. No acute intracranial abnormality. No abnormal enhancement. CT Head:No acute intracranial findings. Mild sphenoid sinus mucosal thickening. Trace fluid within the right mastoid air cells. Neck CTA:75% stenosis of the left vertebral artery at the level of C3. Otherwise no of dissection, focal vessel occlusion, or significant stenosis of the cervical arteries. Head CTA:No significant stenosis, occlusion, or aneurysm within the [place]. Facial numbness/tingling resolved No focal weakness Appreciate Neurology Input Continue aspirin, plavix, statin Neuro checks Needs follow up with Vascular surgery as patient PT, OT, speech therapy evaluations complete (2) Left bundle branch block: New on 05/16/19 following TAVR procedure Discussed at TAVR follow up at [facility], has been wearing ZIO AT for past 3 days for total of 10 No angina symptoms Follow up with cardiology as Outpatient (3) Aortic valve stenosis: (4) S/P TAVR (transcatheter aortic valve replacement): S/p TAVR on May 15 2019 at [facility] Continue aspirin, plavix, statin (5) HTN (hypertension): Normotensive Continue amlodipine, Toprol (6) CKD (chronic kidney disease), stage III: Cr at baseline Monitor renal funciton (7) COPD (chronic obstructive pulmonary disease): Continue home inhalers No signs of exacerbation (8) Dyslipidemia: Continue statin DVT Px: SQ heparin Code status: FULL PCP: Stella Dispo: Plan to discharge home today Total Time Total Time Spent Total Time Spent (In Minutes): 28 minutes Total Time Includes: Examination of the Patient, Discharge Planning, Medication Reconciliation, Communication With Other Providers and Other Discharge Plan Discharge Items Patient Disposition: Home - Self-Care Reason For Visit: FACIAL NUMBNESS Discharge Diagnosis: Facial Numbness Activity: Resume your previous activity Exercise/Sports: Gradually increase as tolerated Non-emergency contact: Primary Care Provider, Surgeon and Neurologist Call non-emergency contact if: you have any medication questions, your symptoms worsen, your pain is not controlled, your pain is worsening, your pain is unusual for you, your pain is concerning for you and you have a fever Follow-up/Referrals: Klaus Douglas MD [Primary Care Provider] - Diet: Heart Healthy Addtl Attending Provider Instructions: Follow-up with Dr. Krishnamurthy on June 04, 2019 at 10:20 AM for primary care services Follow-up with your neurologist Rizwana Elkins PA-C June 23, 2019 at 10:20 AM Follow-up with your vascular surgeon as advised Seek immediate medical attention if your symptoms reoccur or worsen Risk Factors for Stroke: You can reduce your chances of stroke by working with your medical provider to adopt a healthy lifestyle. Some specific ways to lower your chance of stroke are: * If you are a smoker, now is the time to stop smoking cigarettes * If you are diabetic, improve the control of your blood sugars * Avoid excessive amounts of alcohol * Control high blood pressure * Lose weight if you are overweight * Be sure to lead an active lifestyle * Eat a healthy diet low in salt, cholesterol and fat You should know about other risk factors for stroke that you are unable to control. These include: * Age 55 years or older * Male gender * Certain racial groups: , or / * Family History of Stroke, Mini stroke or Heart Attack * Sickle Cell Disease Follow Up: It is important for you to keep your follow up appointments with your medical provider. Who to Call and When: Medical Emergencies: Call 911 immediately if you experience any of the following warning signs and symptoms of Stroke: * Sudden numbness or weakness of the face, arm or leg, especially on one side of the body * Sudden confusion, trouble speaking or understanding * Sudden trouble seeing in one or both eyes * Sudden trouble walking, dizziness, loss of balance or coordination * Sudden severe headache with no cause Do not delay calling 911 if you experience any warning signs or symptoms of a stroke. Delay in seeking medical attention may affect what treatments can be given to you. . Pending Studies at Discharge: No Stand-Alone Forms: My [facility] Medications and DC Order Prescriptions: Continued ipratropium-albuterol 0.5 mg-3 mg(2.5 mg base)/3 mL Solution For Nebulization 3 ml INHALATION QID RF: 0 amlodipine 10 mg Tablet 5 mg PO DAILY RF: 0 aspirin 81 mg Tablet,Chewable 81 mg PO DAILY RF: 0 zolpidem [Ambien] 10 mg Tablet 10 mg PO HS RF: 0 meclizine 25 mg Tablet,Chewable 25 mg PO TID PRN (Reason: Anxiety) RF: 0 Combivent Respimat 20-100 mcg/actuation Mist 1 puff INHALATION QID RF: 0 clopidogrel 75 mg tablet 75 mg PO DAILY RF: 0 metoprolol succinate 25 mg tablet extended release 24 hr 0.5 mg PO DAILY RF: 0 bupropion HCl 150 mg tablet sustained-release 12 hr 150 mg PO BID RF: 0 glipizide 2.5 mg tablet extended release 24hr 2.5 mg PO DAILY RF: 0 hydrocodone-acetaminophen 5-325 mg tablet 1 tab PO Q6H PRN (Reason: Pain) RF: 0 lorazepam 0.5 mg Tablet 0.5 mg PO TID PRN (Reason: Anxiety) RF: 0 simvastatin 20 mg Tablet 20 mg PO HS RF: 0 isosorbide dinitrate 20 mg Tablet 20 mg PO TID RF: 0 furosemide 20 mg Tablet 20 mg PO DAILY RF: 0 ergocalciferol (vitamin D2) 50,000 unit Capsule 50,000 unit PO WK RF: 0 PreserVision AREDS-2 [id number] tl-enta-[id number]-mg Capsule 1 tab PO BID RF: 0 Discharge Orders: Discharge Order (Routine); Ordered 05/30/19 Ordered By: Hamlet Mendez/Other Patient Handouts: TIA Admission Data Admit Date/Time: 05/29/19 17:48 Attending Provider: Hamlet Lynch Admit Provider: Eagle Cruz Primary Care Provider: Klaus Douglas Other Providers: Chuck Wolf Gary K. Other Interventions: Discharge Summary Assessment (RN) Last Done: 05/30/19 17:06 DC Date/Time DO NOT enter until pt leaves facility: 05/30/19 17:20
== END 2019-05-30 17:20 | disposition home or self-care (01) ==
LOC: 2S 14:12 → ED 14:12 → 2S 19:29

== ENCOUNTER 2021-02-25 20:48 | Observation (INO) ==
[2021-02-25 21:27] LABS: Basophils # (auto) 0.04 K/uL (0-0.2); Basophils % (auto) 0.5 %; Eosinophils # (auto) 0.17 K/uL (0-0.5); Eosinophils % (auto) 2.1 %; Hematocrit (blood only) 43.9 % (37-47); Immature Granulocytes # (auto) 0.01 K/uL (0.00-0.02); Immature Granulocytes % (auto) 0.1 %; Lymphocytes # (auto) 0.81 K/uL (1.2-3.4); Lymphocytes % (auto) 10.2 %; Mean Corpuscular Hemoglobin 30.5 pg (25-34); Mean Corpuscular Hgb Conc 31.9 g/dL (32-36); Mean Corpuscular Volume 95.6 fL (80-100); Mean Platelet Volume 10.8 fL (7.4-10.4); Monocytes % (auto) 7.5 %; Neutrophils # (auto) 6.33 K/uL (1.4-6.5); Neutrophils % (auto) 79.6 %; Platelet Count 165 K/uL (130-400); RDW Coefficient of Variation 13.7 % (11.5-14.5); RDW Standard Deviation 48.5 fL (36.4-46.3); Red Blood Count 4.59 M/uL (4.2-5.4); White Blood Count 7.96 K/uL (4.8-10.8)
--- NOTE | 2021-02-25 21:34 | Emergency Department Note ---
History of Present Illness General Chief complaint: Cardiac Assessment Stated complaint: LEFT ARM NUMBNESS, VERTIGO, NAUSEA, CARDAIC Time Seen by Provider: 02/25/21 21:03 History of Present Illness Provider complaint: Chest pain left upper extremity numbness Onset (ago): hour(s) 8 Location: chest, upper extremity and left Radiation: non-radiation Severity: mild Pain Consistency: + now resolved Quality: + other (numbness) Relieved By: + none Exacerbated By: + none Associated symptoms: + chest pain; no cough, no headaches, no nausea/vomiting, no rash, no seizure, no shortness of breath, no syncope and no weakness 85-year-old female presents emergency department for chest pain and left upper extremity numbness. Patient reports her symptoms began at 1 PM. She states her symptoms have since resolved. She also reports nausea. Patient reports no difficulty breathing. She states she is vaccinated against COVID-19. No fevers. No loss of consciousness. No shortness of breath. Home Medications Medication Instructions Recorded Confirmed Type amlodipine 5 mg PO QAM 12/31/18 02/25/21 History meclizine 25 mg PO TID PRN 12/31/18 02/25/21 History zolpidem [Ambien] 10 mg PO HS PRN 12/31/18 02/25/21 History PreserVision AREDS-2 1 tab PO BID 05/29/19 02/25/21 History bupropion HCl 150 mg PO BID 05/29/19 02/25/21 History clopidogrel 75 mg PO QAM 05/29/19 02/25/21 History ergocalciferol (vitamin D2) 50,000 unit PO WK 05/29/19 02/25/21 History hydrocodone-acetaminophen 1 - 2 tab PO .Q4-6 HRS PRN 05/29/19 02/25/21 History isosorbide dinitrate 20 mg PO TID 05/29/19 02/25/21 History lorazepam 0.5 - 1 mg PO TID PRN 05/29/19 02/25/21 History metoprolol succinate 12.5 mg PO QAM 05/29/19 02/25/21 History simvastatin 20 mg PO HS 05/29/19 02/25/21 History ipratropium 20 mcg-albuterol 100 2 puff INHALATION QID #12 g 05/03/20 02/25/21 Rx mcg/actuation mist for inhalation amoxicillin 2,000 mg PO DIRECTED PRN 05/16/20 02/25/21 History ondansetron 4 - 8 mg PO Q8H PRN 05/16/20 02/25/21 History aspirin 81 mg chewable tablet 81 mg PO QAM #90 tab 11/18/20 02/25/21 Rx Allergies Allergy/AdvReac Type Severity Reaction Status Date / Time Sulfa (Sulfonamide Allergy Mild "SULFA Verified 02/25/21 22:11 Antibiotics) DRUGS": UNKNOWN atenolol Allergy Unknown RASH AND Verified 02/25/21 22:11 ITCHING-TAKES TOPROL-XL AT HOME lisinopril AdvReac Unknown COUGH Unverified 02/25/21 22:11 Past Med/Surg History Medical History (Updated 02/26/21 @ 02:06 by Jared Glez) Aortic valve stenosis Carotid stenosis CKD (chronic kidney disease), stage III COPD (chronic obstructive pulmonary disease) Dyslipidemia GERD (gastroesophageal reflux disease) HTN (hypertension) Left bundle branch block noted on 05/16/19 following TAVR Osteoporosis Surgical History H/O hernia repair H/O laminectomy History of cataract surgery History of hysterectomy S/P cholecystectomy S/P TAVR (transcatheter aortic valve replacement) 05/15/[address] [place] [facility] [place]/P tonsillectomy and adenoidectomy Status post total hip replacement, right Family History Other Stroke Social History Smoking Status: Former smoker Hx Alcohol Use: No Hx Substance Use: No Preferred Language: Ukrainian Communication Ability: Effective Beliefs That Will Affect Care: None marital status: Current Living Situation: Spouse Feels Safe at Home: Yes Assistive Devices: Glasses Review of Systems A total of 10 systems reviewed and were otherwise negative Physical Exam Vital Signs Vital Signs - 24 hr 02/25/21 20:52 02/25/21 21:05 02/25/21 21:39 Temperature 36.4 C L Temperature Source Temporal Artery Scan Pulse Rate 94 H 150 H 143 H Pulse Rate [Right Finger] Pulse Rate from SpO2 Sensor 93 H Respiratory Rate 18 23 23 Blood Pressure 193/92 H Blood Pressure [Right Arm] Blood Pressure Mean 125 Blood Pressure Mean [Right Arm] Blood Pressure Position [Right Arm] Pulse Oximetry 94 96 Oxygen Delivery Method Room Air Sepsis Recent Fever Within 48 Hours No Sepsis New/Unexplained Change in Mental Status N/A Sepsis Action Taken by Nursing No Action Required 02/25/21 21:40 02/25/21 21:59 02/25/21 22:00 Temperature Temperature Source Pulse Rate 161 H 135 H 133 H Pulse Rate [Right Finger] Pulse Rate from SpO2 Sensor 93 H 82 83 Respiratory Rate 23 19 20 Blood Pressure 187/98 H 187/98 H Blood Pressure [Right Arm] Blood Pressure Mean 127 127 Blood Pressure Mean [Right Arm] Blood Pressure Position [Right Arm] Pulse Oximetry 96 94 94 Oxygen Delivery Method Sepsis Recent Fever Within 48 Hours Sepsis New/Unexplained Change in Mental Status Sepsis Action Taken by Nursing 02/25/21 22:30 02/25/21 22:42 02/25/21 22:44 Temperature Temperature Source Pulse Rate 110 H 94 H Pulse Rate [Right Finger] 88 Pulse Rate from SpO2 Sensor 84 93 H Respiratory Rate 21 25 H 16 Blood Pressure 162/102 H Blood Pressure [Right Arm] 168/102 H Blood Pressure Mean 122 Blood Pressure Mean [Right Arm] 124 Blood Pressure Position [Right Arm] Lying Pulse Oximetry 93 95 96 Oxygen Delivery Method Room Air Sepsis Recent Fever Within 48 Hours Sepsis New/Unexplained Change in Mental Status Sepsis Action Taken by Nursing 02/25/21 23:00 02/25/21 23:30 02/26/21 00:00 Temperature Temperature Source Pulse Rate 87 91 H 91 H Pulse Rate [Right Finger] Pulse Rate from SpO2 Sensor 86 90 90 Respiratory Rate 20 23 22 Blood Pressure Blood Pressure [Right Arm] Blood Pressure Mean Blood Pressure Mean [Right Arm] Blood Pressure Position [Right Arm] Pulse Oximetry 94 93 92 Oxygen Delivery Method Sepsis Recent Fever Within 48 Hours Sepsis New/Unexplained Change in Mental Status Sepsis Action Taken by Nursing 02/26/21 00:30 02/26/21 01:00 02/26/21 01:05 Temperature Temperature Source Pulse Rate 85 94 H Pulse Rate [Right Finger] Pulse Rate from SpO2 Sensor 85 94 H Respiratory Rate 21 24 Blood Pressure 163/85 H Blood Pressure [Right Arm] Blood Pressure Mean 111 Blood Pressure Mean [Right Arm] Blood Pressure Position [Right Arm] Pulse Oximetry 92 92 Oxygen Delivery Method Sepsis Recent Fever Within 48 Hours Sepsis New/Unexplained Change in Mental Status Sepsis Action Taken by Nursing 02/26/21 01:30 02/26/21 02:00 Temperature Temperature Source Pulse Rate 85 91 H Pulse Rate [Right Finger] Pulse Rate from SpO2 Sensor 85 91 H Respiratory Rate 18 19 Blood Pressure Blood Pressure [Right Arm] Blood Pressure Mean Blood Pressure Mean [Right Arm] Blood Pressure Position [Right Arm] Pulse Oximetry 93 92 Oxygen Delivery Method Sepsis Recent Fever Within 48 Hours Sepsis New/Unexplained Change in Mental Status Sepsis Action Taken by Nursing Physical Exam GENERAL: She is oriented to person, place, and time. She appears well-developed and well-nourished. She does not appear distressed. HENT: Exam performed. -Head: Normocephalic and atraumatic. -Right Ear: External ear normal. No mastoid tenderness. -Left Ear: External ear normal. No mastoid tenderness. -Mouth/Throat: The oropharynx is clear and moist. No trismus in the jaw. No dental abscesses or uvula swelling. No oropharyngeal exudate or tonsillar abscesses. EYES: Conjunctivae and EOM are normal. Pupils are equal, round, and reactive to light. Right eye exhibits no discharge. Left eye exhibits no discharge. No scleral icterus. NECK: Normal range of motion. Neck supple. No JVD present. No spinous process tenderness present. No carotid bruit present. No rigidity. No tracheal deviation and normal range of motion present. No Brudzinski's sign and no Kernig's sign noted. CV: Normal rate, regular rhythm, normal heart sounds and intact distal pulses. There is no peripheral edema. Palpable radial pulses bue. PULM/CHEST: Effort normal and breath sounds normal. No respiratory distress. No stridor. She has no wheezes. She has no rales. -Chest Wall: She exhibits no tenderness. ABD: The abdomen is soft. Bowel sounds are normal. She has no distension. No mass is present. There is no tenderness. There is no rebound, no guarding, no Rouse's sign and no tenderness at McBurney's point. Rovsig negative MUSC/SKEL: Normal range of motion. There is no peripheral edema, tenderness or deformity. LYMPH: No cervical adenopathy. NEURO: She is alert and oriented to person, place, and time. She has normal strength. No cranial nerve deficit or sensory deficit. Coordination and gait normal. GCS eye subscore is 4. GCS verbal subscore is 5. GCS motor subscore is 6. Cerebellar tests wnl. NIHSS: 0 SKIN: Skin is warm and dry. She is not diaphoretic. PSYCH: She has a normal mood and affect. Behavior is normal. Judgment and thought content normal. Course Course 2102: The patient was evaluated in room B11. A complete history and physical exam was performed Cardiac monitoring: An order was placed for continuous cardiac monitoring. The monitor shows a rate of 90 with sinus rhythm 2325: Vital signs stable. Labs and imaging are within normal limits. Patient will be admitted to the [facility] team for TIA/chest pain. Discussed the case with Dr. Frausto Medical Decision Making Laboratory Data Result diagrams: 02/25/21 21:20 02/25/21 21:20 Lab Results 02/25/21 02/25/21 02/25/21 Range/Units 21:20 21:20 21:43 WBC 7.96 (4.8-10.8) K/uL RBC 4.59 (4.2-5.4) M/uL Hgb 14.0 (12.0-16.0) g/dL Hct 43.9 (37-47) % MCV 95.6 (80-100) fL MCH 30.5 (25-34) pg MCHC 31.9 L (32-36) g/dL RDW Std Deviation 48.5 H (36.4-46.3) fL RDW Coeff of [place]son 13.7 (11.5-14.5) % Plt Count 165 (130-400) K/uL MPV 10.8 H (7.4-10.4) fL Immature Gran % (Auto) 0.1 % Neut % (Auto) 79.6 % Lymph % (Auto) 10.2 % [place] % (Auto) 7.5 % Eos % (Auto) 2.1 % Baso % (Auto) 0.5 % Neut # (Auto) 6.33 (1.4-6.5) K/uL Lymph # (Auto) 0.81 L (1.2-3.4) K/uL [place] # (Auto) 0.60 H (0.11-0.59) K/uL Eos # (Auto) 0.17 (0-0.5) K/uL Baso # (Auto) 0.04 (0-0.2) K/uL Immature Gran # (Auto) 0.01 (0.00-0.02) K/uL PT 9.8 (9.0-12.0) Seconds INR 1.0 (0.9-1.1) APTT 25.8 (21.0-31.0) Seconds PTT Ratio 1.0 Sodium 139 (136-145) mmol/L Potassium 4.2 (3.5-5.1) mmol/L Chloride 109 H (98-107) mmol/L Carbon Dioxide 25 (21-32) mmol/L Anion Gap 6.0 (3-11) BUN 16 (7-18) mg/dl Creatinine 1.41 H (0.6-1.2) mg/dl Est Cr Clr Drug Dosing 29.2 ml/min Est GFR ( Amer) 39.5 ml/min Est GFR (Non-Af Amer) 34.1 ml/min BUN/Creatinine Ratio 11.3 (10-20) Glucose 171 H (70-99) mg/dl Calcium 8.8 (8.5-10.1) mg/dl Magnesium 2.2 (1.8-2.4) mg/dl Total Bilirubin 0.2 (0.2-1) mg/dl AST 12 L (15-37) U/L ALT 15 (12-78) U/L Alkaline Phosphatase 82 (45-117) U/L Troponin I < 0.015 (0-0.045) ng/ml Total Protein 6.8 (6.4-8.2) gm/dl Albumin 3.3 L (3.4-5.0) gm/dl Globulin 3.5 (2.5-4.0) gm/dl Albumin/Globulin Ratio 1.0 (0.9-2) COVID-19 Eval Order SARS-CoV-2 (PCR) (Negative) 02/25/21 02/25/21 Range/Units 23:30 23:30 WBC (4.8-10.8) K/uL RBC (4.2-5.4) M/uL Hgb (12.0-16.0) g/dL Hct (37-47) % MCV (80-100) fL MCH (25-34) pg MCHC (32-36) g/dL RDW Std Deviation (36.4-46.3) fL RDW Coeff of [place]son (11.5-14.5) % Plt Count (130-400) K/uL MPV (7.4-10.4) fL Immature Gran % (Auto) % Neut % (Auto) % Lymph % (Auto) % [place] % (Auto) % Eos % (Auto) % Baso % (Auto) % Neut # (Auto) (1.4-6.5) K/uL Lymph # (Auto) (1.2-3.4) K/uL [place] # (Auto) (0.11-0.59) K/uL Eos # (Auto) (0-0.5) K/uL Baso # (Auto) (0-0.2) K/uL Immature Gran # (Auto) (0.00-0.02) K/uL PT (9.0-12.0) Seconds INR (0.9-1.1) APTT (21.0-31.0) Seconds PTT Ratio Sodium (136-145) mmol/L Potassium (3.5-5.1) mmol/L Chloride (98-107) mmol/L Carbon Dioxide (21-32) mmol/L Anion Gap (3-11) BUN (7-18) mg/dl Creatinine (0.6-1.2) mg/dl Est Cr Clr Drug Dosing ml/min Est GFR ( Amer) ml/min Est GFR (Non-Af Amer) ml/min BUN/Creatinine Ratio (10-20) Glucose (70-99) mg/dl Calcium (8.5-10.1) mg/dl Magnesium (1.8-2.4) mg/dl Total Bilirubin (0.2-1) mg/dl AST (15-37) U/L ALT (12-78) U/L Alkaline Phosphatase (45-117) U/L Troponin I (0-0.045) ng/ml Total Protein (6.4-8.2) gm/dl Albumin (3.4-5.0) gm/dl Globulin (2.5-4.0) gm/dl Albumin/Globulin Ratio (0.9-2) COVID-19 Eval Order Covid19 at [facility] SARS-CoV-2 (PCR) NEGATIVE (Negative) Imaging Data My Impression: Chest x-ray negative. Airway clear. No pneumothorax. No consolidation. No cardiomegaly or cephalization.. No free air under the diaphragm. No fractures of the skeletal structures. Radiologist's Impression: Preliminary Findings Only See Final Report For Complete Findings CT HEAD: No acute intracranial hemorrhage, hydrocephalus, edema, or mass effect. Paranasal sinuses and mastoid air cells are clear. No fracture. Radiologist: Zackary Carrasco MD Study ready at 21:46 and initial results transmitted at 22:37 ECG Data Additional Comments: EKG #1 at 2102: Sinus rhythm with rate 92. PA and QTc intervals within normal limits. QRS 126. No ST elevation or ST depression. Left bundle branch block present. SgarBosa negative. No significant change from the EKG done in May 2019. EKG #2 at 2109:Sinus rhythm with rate 90. PA and QTc intervals within normal limits. QRS 122. No ST elevation or ST depression. Left bundle branch block present. SgarBosa negative. No significant change from the EKG MDM Narrative 2102: The patient was evaluated in room B11. A complete history and physical exam was performed Cardiac monitoring: An order was placed for continuous cardiac monitoring. The monitor shows a rate of 90 with sinus rhythm 2325: Vital signs stable. Labs and imaging are within normal limits. Patient w ill be admitted to the [facility] hospitalist team for TIA/chest pain. Discussed the case with Dr. Frausto Impression & Plan Chest pain, Brain TIA Discharge Plan Visit Data Chief Complaint: Cardiac Assessment Stated Complaint: LEFT ARM NUMBNESS, VERTIGO, NAUSEA, CARDAIC ED Provider: Jared Glez Discharge Problem: Chest pain, Brain TIA Forms Stand Alone Forms: My [facility] [employer] Prescriptions Prescriptions: No Action Combivent Respimat 20-100 mcg/actuation mist 2 puff INHALATION QID Qty: 12 RF: 5 aspirin 81 mg tablet,chewable 81 mg PO QAM Qty: 90 RF: 3 amlodipine 10 mg Tablet 5 mg PO QAM RF: 0 zolpidem [Ambien] 10 mg Tablet 10 mg PO HS PRN (Reason: Sleep) RF: 0 meclizine 25 mg Tablet,Chewable 25 mg PO TID PRN (Reason: Anxiety) RF: 0 clopidogrel 75 mg tablet 75 mg PO QAM RF: 0 metoprolol succinate 25 mg tablet extended release 24 hr 12.5 mg PO QAM RF: 0 bupropion HCl 150 mg tablet sustained-release 12 hr 150 mg PO BID RF: 0 hydrocodone-acetaminophen 5-325 mg tablet 1 - 2 tab PO .Q4-6 HRS PRN (Reason: Pain) RF: 0 lorazepam 0.5 mg Tablet 0.5 - 1 mg PO TID PRN (Reason: Anxiety) RF: 0 simvastatin 20 mg Tablet 20 mg PO HS RF: 0 isosorbide dinitrate 20 mg Tablet 20 mg PO TID RF: 0 ergocalciferol (vitamin D2) 50,000 unit Capsule 50,000 unit PO WK RF: 0 PreserVision AREDS-2 [id number] [id number]-[id number]-mg Capsule 1 tab PO BID RF: 0 amoxicillin 500 mg capsule 2,000 mg PO DIRECTED PRN (Reason: premedication for dental appt) RF: 0 ondansetron 4 mg Tablet,Disintegrating 4 - 8 mg PO Q8H PRN (Reason: Nausea) RF: 0 Referrals Referrals: Klaus Douglas MD [Primary Care Provider] - Discharge Problem: Chest pain Qualifiers: Chest pain type: unspecified Qualified Code(s): R07.9 - Chest pain, unspecified
[2021-02-25 21:50] LABS: Alanine Aminotransferase 15 U/L (12-78); Albumin Level 3.3 gm/dl (3.4-5.0); Aspartate Aminotransferase 12 U/L (15-37); BUN Creatinine Ratio 11.3 (10-20); Blood Urea Nitrogen 16 mg/dl (7-18); Calcium 8.8 mg/dl (8.5-10.1); Carbon Dioxide 25 mmol/L (21-32); Chloride 109 mmol/L (98-107); Creatinine Clr Calc Pharmacy 29.2 ml/min; Est GFR (African American) 39.5 ml/min; Est GFR (Non-African American) 34.1 ml/min; Glucose 171 mg/dl (70-99); Magnesium 2.2 mg/dl (1.8-2.4); Potassium 4.2 mmol/L (3.5-5.1); Sodium 139 mmol/L (136-145)
[2021-02-25 21:55] LABS: Alkaline Phosphatase 82 U/L (45-117); Bilirubin,Total 0.2 mg/dl (0.2-1); Globulin 3.5 gm/dl (2.5-4.0); Total Protein 6.8 gm/dl (6.4-8.2); Troponin I < 0.015 ng/ml (0-0.045)
[2021-02-25 22:09] LABS: Partial Thromboplastin Time 25.8 Seconds (21.0-31.0); Prothrombin Time 9.8 Seconds (9.0-12.0)
[2021-02-26] MEDS ORDERED: LORazepam 0.5 MG TAB PO PRN (02:32)
[2021-02-26] MEDS ORDERED: POLYETHYLENE (MIRALAX) 17 GM PACK PO PRN (02:32)
[2021-02-26] MEDS ORDERED: ONDANSETRON INJ 2 MG/ML 2 ML VIAL IV PRN (02:32)
[2021-02-26] MEDS ORDERED: NITROGLYCERIN SL 0.4 MG/TAB TAB SL PRN (02:32)
[2021-02-26] MEDS ORDERED: ZOLPIDEM TARTRATE 10 MG TAB PO PRN (02:32)
[2021-02-26] MEDS ORDERED: ACETAMINOPHEN 325 MG TAB PO PRN (02:32)
[2021-02-26] MEDS ORDERED: HYDROCODONE/ACETAMOPHEN 5/325MG TAB PO PRN (02:32)
[2021-02-26] MEDS ORDERED: PHARMACIST DISCHARGE MED REC CONSULT PRN (02:32)
[2021-02-26] MEDS ORDERED: MECLIZINE HCL 25 MG TAB PO PRN (02:59)
[2021-02-26] MEDS ORDERED: SODIUM CHLORIDE 0.9% 1000ML 1,000 ML IV SCH (03:00)
--- NOTE | 2021-02-26 06:57 | CT Scan Report ---
CT head/brain wo con CLINICAL HISTORY: Stroke Like Symptoms CONFUSION COMPARISON STUDY: 05/30/2019 TECHNIQUE: Axial CT of the brain is performed from the vertex to the skull base. IV contrast was not administered for this examination. A dose lowering technique was utilized adhering to the principles of ALARA. CT DOSE: 537.48 mGy.cm FINDINGS: No intra or extra-axial mass lesions are visualized. There is no CT evidence of acute cortical infarc tion. There is no evidence of midline shift. There is no acute hemorrhage. No calvarial fractures ar e visualized. There are patchy white matter hypodensities likely on a small vessel basis. There is no evidence of pathologic ventricular dilatation. There is no evidence of acute sinusitis IMPRESSION: No acute intracranial findings ACT 112: Negative or not required by law. Electronically signed by: Samuel Gonzalez M.D. 02/26/2021 6:56 AM
[2021-02-26 07:17] LABS: Basophils # (auto) 0.03 K/uL (0-0.2); Basophils % (auto) 0.5 %; Eosinophils # (auto) 0.15 K/uL (0-0.5); Eosinophils % (auto) 2.5 %; Hematocrit (blood only) 42.8 % (37-47); Hemoglobin 13.6 g/dL (12.0-16.0); Immature Granulocytes # (auto) 0.01 K/uL (0.00-0.02); Immature Granulocytes % (auto) 0.2 %; Lymphocytes # (auto) 1.07 K/uL (1.2-3.4); Lymphocytes % (auto) 18.1 %; Mean Corpuscular Hemoglobin 30.8 pg (25-34); Mean Corpuscular Hgb Conc 31.8 g/dL (32-36); Mean Corpuscular Volume 96.8 fL (80-100); Mean Platelet Volume 10.4 fL (7.4-10.4); Monocytes % (auto) 10.2 %; Neutrophils # (auto) 4.04 K/uL (1.4-6.5); Neutrophils % (auto) 68.5 %; Platelet Count 182 K/uL (130-400); RDW Coefficient of Variation 13.8 % (11.5-14.5); RDW Standard Deviation 49.4 fL (36.4-46.3); Red Blood Count 4.42 M/uL (4.2-5.4)
[2021-02-26 07:36] LABS: BUN Creatinine Ratio 11.2 (10-20); Blood Urea Nitrogen 13 mg/dl (7-18); Calcium 8.9 mg/dl (8.5-10.1); Carbon Dioxide 27 mmol/L (21-32); Chloride 112 mmol/L (98-107); Creatinine Clr Calc Pharmacy 35.6 ml/min; Est GFR (African American) 50.6 ml/min; Est GFR (Non-African American) 43.7 ml/min; Glucose 107 mg/dl (70-99); Sodium 144 mmol/L (136-145)
[2021-02-26 07:41] LABS: Chol HDL Ratio 3; Cholesterol 165 mg/dl (0-200); HDL Cholesterol 58 mg/dl; LDL Cholesterol Calculated 84 mg/dl; Triglycerides 116 mg/dl (0-150); Troponin I < 0.015 ng/ml (0-0.045); VLDL Cholesterol 23 mg/dl
[2021-02-26] MEDS: Albuterol HFA 8 GM Inhaler (Combivent Respimat P&T Subs) INH SCH ×3 (07:43→15:12)
[2021-02-26] MEDS: Ipratropium HFA Inhaler (Combivent Respimat P&T Subs) INH SCH ×3 (07:43→15:12)
[2021-02-26 07:52] LABS: Estimated Average Glucose 134 mg/dl; Hemoglobin A1C 6.3 % (4.5-5.6)
[2021-02-26] MEDS: ISOSORBIDE DINITRATE 20 MG TAB PO SCH ×2 (08:19→11:35)
--- NOTE | 2021-02-26 08:30 | XRay Report ---
XR chest 1V portable CLINICAL HISTORY: Stroke Like Symptoms COMPARISON STUDY: 05/29/2019 FINDINGS: The heart is borderline enlarged with a prominent right cardiophrenic angle fat pad. There is no failure. There is no focal pulmonary consolidation. There are no pleural effusions.[ IMPRESSION: No active disease in the chest. ACT 112: Negative or not required by law. Electronically signed by: Samuel Gonzalez M.D. 02/26/2021 8:28 AM
[2021-02-26] MEDS ORDERED: CEROVITE ADV FORMULA TAB PO SCH (09:00)
[2021-02-26] MEDS ORDERED: amLODIPine BESYLATE 5 MG TAB PO SCH (09:00)
[2021-02-26] MEDS ORDERED: buPROPion SR 150 MG TABCR PO SCH (09:00)
[2021-02-26] MEDS ORDERED: CLOPIDOGREL BISULFATE 75 MG TAB PO SCH (09:00)
[2021-02-26] MEDS ORDERED: IPRATROPIUM BROMIDE/ALBUTEROL respimat INH INH SCH (09:00)
[2021-02-26] MEDS ORDERED: ASPIRIN 81 MG CHEW PO SCH (09:00)
[2021-02-26] MEDS ORDERED: METOPROLOL SUCC 25MG EXT REL TAB PO SCH (09:00)
--- NOTE | 2021-02-26 09:24 | Cardiology Consultation ---
Date of Consultation February 26, 2021 Assessment & Plan (1) Brain TIA: Patient presents with several hours history of intermittent hot flashes with left arm weakness and paresthesias. No acute intracranial infarct by MRI and CT. No arrhythmias on telemetry. Echocardiogram without significant change. Patient is on dual antiplatelet therapy Neuro eval in process. Patient does carry history of past right carotid artery stenosis by outpatient testing although carotid duplex this admission without significant obstruction Recommendations continue current cardiac medications. Would recommend event monitor post discharge to exclude paroxysmal atrial arrhythmias. (2) S/P TAVR (transcatheter aortic valve replacement): Stable (3) Left bundle branch block: Chronic finding post TAVR. No bradycardia arrhythmias observed (4) Carotid stenosis: None noted on exam this admission no past history of right carotid artery stenosis. This may need close clinical follow-up post discharge (5) COPD (chronic obstructive pulmonary disease): (6) CKD (chronic kidney disease), stage III: History of Present Illness Attending Physician: Leo Man MD History of Present Illness Patient is an 85-year-old female with ongoing cardiac issues which include 1. Diffuse minor CAD by cardiac catheterization 01/27/2019. 2. Calcific aortic stenosis status post TAVR on 05/16/2019 with a # 23 mm Aldridge Brice S3 valve 3. Left bundle branch block noted post TAVR, 05/27/2019 4. Carotid artery disease, 50-69% TONNY stenosis by 03/12/2019 duplex 5. Stage 3 chronic kidney disease 6. Severe COPD. Former smoker. Quit in 2014 7. Hypertension 8. Dyslipidemia 9. Diastolic dysfunction 10. Generalized anxiety disorder 11. GERD Patient presents this admission noting yesterday while driving with her developed a sensation of numbness and weakness in her left arm. Predominantly paresthesias over weakness but persisted until patient returned home patient had episodes of "hot flashes and mild lightheadedness but no tachypalpitations syncope or near syncope. She specifically denies any associated chest pains or discomfort. No recent fevers chills or infections. Symptoms gradually resolved in hospital. She has had no further recurrences and generally feels well this morning. Neurologic evaluation in process. Initial CT head and MRI without infarct. Patient on dual antiplatelet therapy Telemetry reveals sinus and sinus tachycardia without arrhythmia. Chronic left bundle branch block is present Echocardiogram by personal review reveals no acute findings with normally functioning aortic valve bioprosthesis. Allergies Allergy/AdvReac Type Severity Reaction Status Date / Time Sulfa (Sulfonamide Allergy Mild "SULFA Verified 02/25/21 22:11 Antibiotics) DRUGS": UNKNOWN atenolol Allergy Unknown RASH AND Verified 02/25/21 22:11 ITCHING-TAKES TOPROL-XL AT HOME lisinopril AdvReac Unknown COUGH Unverified 02/25/21 22:11 Home Medications Medication Instructions Recorded Confirmed Type amlodipine 5 mg PO QAM 12/31/18 02/25/21 History meclizine 25 mg PO TID PRN 12/31/18 02/25/21 History zolpidem [Ambien] 10 mg PO HS PRN 12/31/18 02/25/21 History PreserVision AREDS-2 1 tab PO BID 05/29/19 02/25/21 History bupropion HCl 150 mg PO BID 05/29/19 02/25/21 History clopidogrel 75 mg PO QAM 05/29/19 02/25/21 History ergocalciferol (vitamin D2) 50,000 unit PO WK 05/29/19 02/25/21 History hydrocodone-acetaminophen 1 - 2 tab PO .Q4-6 HRS PRN 05/29/19 02/25/21 History isosorbide dinitrate 20 mg PO TID 05/29/19 02/25/21 History lorazepam 0.5 - 1 mg PO TID PRN 05/29/19 02/25/21 History metoprolol succinate 12.5 mg PO QAM 05/29/19 02/25/21 History simvastatin 20 mg PO HS 05/29/19 02/25/21 History ipratropium 20 mcg-albuterol 100 2 puff INHALATION QID #12 g 05/03/20 02/25/21 Rx mcg/actuation mist for inhalation amoxicillin 2,000 mg PO DIRECTED PRN 05/16/20 02/25/21 History ondansetron 4 - 8 mg PO Q8H PRN 05/16/20 02/25/21 History aspirin 81 mg chewable tablet 81 mg PO QAM #90 tab 11/18/20 02/25/21 Rx Patient History Medical History Aortic valve stenosis Carotid stenosis CKD (chronic kidney disease), stage III COPD (chronic obstructive pulmonary disease) Dyslipidemia GERD (gastroesophageal reflux disease) HTN (hypertension) Left bundle branch block noted on 05/16/19 following TAVR Osteoporosis Surgical History H/O hernia repair H/O laminectomy History of cataract surgery History of hysterectomy S/P cholecystectomy S/P TAVR (transcatheter aortic valve replacement) 05/15/[address] Bearden at 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 Beliefs That Will Affect Care: None marital status: Current Living Situation: Spouse Feels Safe at Home: Yes Safety Concerns: Feels Safe At This Time Assistive Devices: None Review of Systems Review of Systems: All systems reviewed & are unremarkable except as noted in HPI & below Physical Exam 2 Constitutional: WD/WN, vitals as above Eyes: PERRL, conjunctivae normal, anicteric sclerae ENMT: external ear and nose normal, oropharynx normal Neck: trachea midline, no thyromegaly Respiratory: normal respiratory effort, lungs clear to auscultation Cardiovascular: Rate/Rhythm: regular rate and regular rhythm Heart Sounds: normal S1, normal S2 and + murmur (Grade 2/6 systolic no diastolic); no gallop Palpation: normal PMI Vessels: normal carotid upstroke and radial pulses present; no JVD and no carotid bruit Extremities: no edema Gastrointestinal (Abdomen): normal bowel sounds, soft, nontender, no hepatosplenomegaly Musculoskeletal: no cyanosis or clubbing, extremities motor strength 5/5 Skin: no rashes, warm and dry Neurologic: PERRL, EOMI, accommodation nl, no face palsy, no dysarthria Psychiatric: A+Ox3, euthymic affect Results & Data ([facility]) Vital Signs (Past 12 Hours) Vital Signs Temp Pulse Pulse Resp BP BP Pulse Ox 02/26/21 08:00 87 02/26/21 07:48 37.0 C 76 18 139/76 96 02/26/21 07:43 90 18 92 02/26/21 05:24 91 H 149/79 H 02/26/21 02:42 96 H 02/26/21 02:41 36.6 C 106 H 20 173/84 H 93 02/26/21 02:32 170/89 H 02/26/21 02:05 85 18 163/85 H 93 02/26/21 02:00 91 H 19 92 02/26/21 01:30 85 18 93 02/26/21 01:05 94 H 24 92 02/26/21 01:00 163/85 H 02/26/21 00:30 85 21 92 02/26/21 00:00 91 H 22 92 02/25/21 23:30 91 H 23 93 02/25/21 23:00 87 20 94 02/25/21 22:44 88 16 168/102 H 96 02/25/21 22:42 94 H 25 H 162/102 H 95 02/25/21 22:30 110 H 21 93 02/25/21 22:00 133 H 20 94 02/25/21 21:59 135 H 19 187/98 H 94 02/25/21 21:40 161 H 23 187/98 H 96 02/25/21 21:39 143 H 23 96 Laboratory Results Laboratory Results - last 24 hr 02/25/21 02/25/21 02/25/21 21:20 21:20 21:43 WBC 7.96 RBC 4.59 Hgb 14.0 Hct 43.9 MCV 95.6 MCH 30.5 MCHC 31.9 L RDW Std Deviation 48.5 H RDW Coeff of Anson 13.7 Plt Count 165 MPV 10.8 H Immature Gran % (Auto) 0.1 Neut % (Auto) 79.6 Lymph % (Auto) 10.2 Ida % (Auto) 7.5 Eos % (Auto) 2.1 Baso % (Auto) 0.5 Neut # (Auto) 6.33 Lymph # (Auto) 0.81 L Ida # (Auto) 0.60 H Eos # (Auto) 0.17 Baso # (Auto) 0.04 Immature Gran # (Auto) 0.01 PT 9.8 INR 1.0 APTT 25.8 PTT Ratio 1.0 Sodium 139 Potassium 4.2 Chloride 109 H Carbon Dioxide 25 Anion Gap 6.0 BUN 16 Creatinine 1.41 H Est Cr Clr Drug Dosing 29.2 Est GFR ( Amer) 39.5 Est GFR (Non-Af Amer) 34.1 BUN/Creatinine Ratio 11.3 Glucose 171 H Estimat Average Glucose Hemoglobin A1c Calcium 8.8 Magnesium 2.2 Total Bilirubin 0.2 AST 12 L ALT 15 Alkaline Phosphatase 82 Troponin I < 0.015 Total Protein 6.8 Albumin 3.3 L Globulin 3.5 Albumin/Globulin Ratio 1.0 Triglycerides Cholesterol LDL Cholesterol, Calc VLDL Cholesterol, Calc HDL Cholesterol Cholesterol/HDL Ratio COVID-19 Eval Order SARS-CoV-2 (PCR) 02/25/21 02/25/21 02/26/21 23:30 23:30 06:53 WBC 5.90 RBC 4.42 Hgb 13.6 Hct 42.8 MCV 96.8 MCH 30.8 MCHC 31.8 L RDW Std Deviation 49.4 H RDW Coeff of Anson 13.8 Plt Count 182 MPV 10.4 Immature Gran % (Auto) 0.2 Neut % (Auto) 68.5 Lymph % (Auto) 18.1 Ida % (Auto) 10.2 Eos % (Auto) 2.5 Baso % (Auto) 0.5 Neut # (Auto) 4.04 Lymph # (Auto) 1.07 L Ida # (Auto) 0.60 H Eos # (Auto) 0.15 Baso # (Auto) 0.03 Immature Gran # (Auto) 0.01 PT INR APTT PTT Ratio Sodium Potassium Chloride Carbon Dioxide Anion Gap BUN Creatinine Est Cr Clr Drug Dosing Est GFR ( Amer) Est GFR (Non-Af Amer) BUN/Creatinine Ratio Glucose Estimat Average Glucose Hemoglobin A1c Calcium Magnesium Total Bilirubin AST ALT Alkaline Phosphatase Troponin I Total Protein Albumin Globulin Albumin/Globulin Ratio Triglycerides Cholesterol LDL Cholesterol, Calc VLDL Cholesterol, Calc HDL Cholesterol Cholesterol/HDL Ratio COVID-19 Eval Order Covid19 at [facility] SARS-CoV-2 (PCR) NEGATIVE 02/26/21 02/26/21 06:53 06:53 WBC RBC Hgb Hct MCV MCH MCHC RDW Std Deviation RDW Coeff of Anson Plt Count MPV Immature Gran % (Auto) Neut % (Auto) Lymph % (Auto) Ida % (Auto) Eos % (Auto) Baso % (Auto) Neut # (Auto) Lymph # (Auto) Ida # (Auto) Eos # (Auto) Baso # (Auto) Immature Gran # (Auto) PT INR APTT PTT Ratio Sodium 144 Potassium 4.0 Chloride 112 H Carbon Dioxide 27 Anion Gap 5.0 BUN 13 Creatinine 1.15 Est Cr Clr Drug Dosing 35.6 Est GFR ( Amer) 50.6 Est GFR (Non-Af Amer) 43.7 BUN/Creatinine Ratio 11.2 Glucose 107 H Estimat Average Glucose 134 Hemoglobin A1c 6.3 H Calcium 8.9 Magnesium Total Bilirubin AST ALT Alkaline Phosphatase Troponin I < 0.015 Total Protein Albumin Globulin Albumin/Globulin Ratio Triglycerides 116 Cholesterol 165 LDL Cholesterol, Calc 84 VLDL Cholesterol, Calc 23 HDL Cholesterol 58 Cholesterol/HDL Ratio 3 COVID-19 Eval Order SARS-CoV-2 (PCR) Diagnostic Findings Cardiac catheterization 01/27/2019 The coronary arteries have diffuse minor irregularities with non-obstructive coronary artery disease.The right atrial pressure was 8 mmHg which is normal.The PA pressure was 46/16 (26) mmHg c/w mild pulmonary hypertension.The PW was 16 mmhg which is normal.The LVEDP was 28 mmhg which is moderately elevated.The AV mean gradient was 44 mmhg, LADY 0.8 cm^2 c/w severe aortic stenosis. Echocardiogram 11/24/2020No LV segmental wall motion abnormalities. The patient is status post TAVR with Brice type prosthetic valve. Aortic valve prosthesis stenosis is absent. Significant aortic valve prosthesis regurgitation is absent. The qualitative LV ejection fraction is 50-54% (normal).
[2021-02-26] MEDS ORDERED: GADOBUTROL 30ML VIAL IV ONE (10:05)
--- NOTE | 2021-02-26 10:23 | Magnetic Resonance Report ---
MRI OF THE BRAIN WITHOUT AND WITH IV CONTRAST CLINICAL HISTORY: left hand numbness POSSIBLE STROKE COMPARISON STUDY: No previous studies for comparison. TECHNIQUE: MRI of the brain was performed from the vertex to the skull base utilizing various T1 and T2 weighted sequences. Following the IV administration of 7.5 mL of Gadavist contrast, additional enh anced images were obtained. FINDINGS: Sagittal T1, axial diffusion, proton density and T2 weighted axial, coronal FLAIR, and pre and post a xial T1-weighted images were acquired. These were supplemented with post gadolinium coronal T1 weight ed images. No intra or extra-axial mass lesions are visualized. Axial diffusion-weighted images reveal no evidence of acute or subacute infarction. There is no evidence of ventricular dilatation. Proton density T2-weighted and FLAIR images reveal scattered foci of increased T2 signal within the w macho matter, likely on a small vessel basis. Foci of increased T2 signal within the mastoids are felt to be inflammatory. There are no abnormal flow voids. There is no evidence of pathologic enhancement. IMPRESSION: 1. No acute intracranial findings 2. No evidence of acute or subacute infarction 3. No evidence of intracranial mass ACT 112: Negative or not required by law. Electronically signed by: Samuel Gonzalez M.D. 02/26/2021 10:22 AM
--- NOTE | 2021-02-26 11:36 | Ultrasound Report ---
ULTRASOUND OF THE CAROTID ARTERIES CLINICAL HISTORY: Stroke. Transient ischemic attack. COMPARISON STUDY: Carotid Doppler ultrasound dated 05/29/2019 TECHNIQUE: Real-time, grayscale, and color Doppler sonography of the carotid arteries was performed. Imaging reviewed in the transverse and longitudinal planes. NASCET criteria was utilized for stenosis calcification. FINDINGS: There is atherosclerotic plaque present . The peak systolic velocity within the right internal carotid artery is 109 cm/sec. The systolic velocity ratio of right internal to common carotid artery is 1.6. The peak systolic velocity within the left internal carotid artery is 68 cm/sec. The systolic velocity ratio left internal to common carotid artery is 0.9. Antegrade flow is seen in the vertebral arteries. The external carotid arteries are patent. Blood pressure in the right arm measured 170 mm/Hg. Blood pressure in the left arm measured 163 mm/H g. IMPRESSION: No evidence of hemodynamically significant carotid stenosis. ACT 112: Negative or not required by law. Electronically signed by: Samuel Gonzalez M.D. 02/26/2021 11:35 AM
[2021-02-26] MEDS ORDERED: STROKE PATIENT DISCHARGE STA (14:11)
--- NOTE | 2021-02-26 14:14 | Hospitalist Progress Note ---
Date of Service February 26, 2021 Assessment & Plan (1) Chest pain: (2) Left upper extremity numbness: This is an 85-year-old female who presents with chest pain, numbness feeling of the chest, and also left upper extremity numbness. 1. Chest pain: Rule out acute coronary syndrome. Hx of cardiac catheterization in January 2019. The patient is on aspirin, Plavix, statin, and beta zainab. Troponin x3 - negative Echo - LV is normal in size. Moderate concentric LVH. Septal motion is consi stent with conduction abnormality. No regional wall motion abnormalities noted. EF 60 to 65%. Grade 1 diastolic dysfunction. Patient is status post TAVR with a stable valve structure. Leaflets in limited visibility. Freely mobile. The gradient is normal for this prosthetic aortic valve. There is moderate calcification of the posterior mitral valve annulus was preserved leaflet mobility. There is trace mitral regurg. There is mild to moderate tricuspid regurg. RV systolic pressure is elevated at 40 to 55 mmHg. Cardiology consulted for further recommendations. - recommend event monitor post discharge to exclude paroxysmal atrial arrhythmias. 2. Left upper extremity numbness: ?cardiac, could be TIA or rule out CVA with MRI scan of the head. CT of the head is unremarkable MRI brain -no evidence of acute or subacute infarction. Carotid Doppler -no evidence of hemodynamically significant carotid stenosis. Follow echo and consult neurology for further recommendation. Per neurology - Recommend outpatient EMG of the left upper extremity. Ok to discharge from neurology standpoint. 3. History of calcified aortic stenosis: Status post TAVR. History of left bundle branch block post-TAVR, history of carotid artery disease, follow up. 4. History of chronic obstructive pulmonary disease: Former smoker, quit in 2014. Continue home inhalers, currently stable. 5. Hypertension: Continue Toprol-XL, amlodipine. We will monitor the blood pressure. 6. History of hyperlipidemia: On statin. Follow lipid profile. 7. History of diastolic dysfunction. Follow echo and nitrate, and beta zainab. 8. Generalized anxiety disorder: Continue Ativan p.r.n. and bupropion. 9. Gastroesophageal reflux disease. DVT prophylaxis: Sequential compression devices for now. Disposition: Plan to discharge home, follow-up with cardiology and neurology and PCP Admission and Anticipated Discharge Date Admission Date: February 26, 2021 Subjective Patient seen in follow-up of left upper arm numbness, chest discomfort Currently patient is lying in bed, in no acute distress Denies any chest pain, shortness of breath, nausea, palpitations She does have persistent left upper extremity numbness feeling, no loss of strength Seen by cardiology and neurology Review of Systems Review of Systems: All systems reviewed & are unremarkable except as noted in HPI & below Constitutional: no fever and no chills Respiratory: no cough and no dyspnea Cardiovascular: no chest pain and no palpitations Gastrointestinal: no abdominal pain, no nausea and no vomiting Physical Exam Physical Exam: GENERAL: The patient is obese, not in acute distress. HEENT: NC/AT, Pupils equal, round, reactive to light. Oral mucosa moist. NECK: No JVD. No neck masses. CARDIOVASCULAR: S1, S2 heard, regular rate and rhythm, no murmur, no gallop. RESPIRATORY: Normal AP diameter. No accessory muscle use. No wheezing, no crackles. ABDOMEN: Soft, bowel sounds present, nontender, no distention. NEURO: Alert and oriented x3. Speech is clear, no facial droop. Moves extremities. Nonfocal. EXTREMITIES: No edema, no erythema. Results & Data Results & Data ([facility]) Vital Signs (Past 12 Hours) Vital Signs Temp Pulse Pulse Resp BP Pulse Ox 02/26/21 11:50 37.0 C 83 18 132/63 96 02/26/21 11:01 77 18 95 02/26/21 08:00 87 02/26/21 07:48 37.0 C 76 18 139/76 96 02/26/21 07:43 90 18 92 02/26/21 05:24 91 H 149/79 H 02/26/21 02:42 96 H 02/26/21 02:41 36.6 C 106 H 20 173/84 H 93 02/26/21 02:32 170/89 H Laboratory Results 02/26/21 02/26/21 02/26/21 Range/Units 10:56 06:53 06:53 WBC (4.8-10.8) K/uL RBC (4.2-5.4) M/uL Hgb (12.0-16.0) g/dL Hct (37-47) % MCV (80-100) fL MCH (25-34) pg MCHC (32-36) g/dL RDW Std Deviation (36.4-46.3) fL RDW Coeff of [place] (11.5-14.5) % Plt Count (130-400) K/uL MPV (7.4-10.4) fL Immature Gran % (Auto) % Neut % (Auto) % Lymph % (Auto) % Republic % (Auto) % Eos % (Auto) % Baso % (Auto) % Neut # (Auto) (1.4-6.5) K/uL Lymph # (Auto) (1.2-3.4) K/uL Republic # (Auto) (0.11-0.59) K/uL Eos # (Auto) (0-0.5) K/uL Baso # (Auto) (0-0.2) K/uL Immature Gran # (Auto) (0.00-0.02) K/uL PT (9.0-12.0) Seconds INR (0.9-1.1) APTT (21.0-31.0) Seconds PTT Ratio Sodium 144 (136-145) mmol/L Potassium 4.0 (3.5-5.1) mmol/L Chloride 112 H (98-107) mmol/L Carbon Dioxide 27 (21-32) mmol/L Anion Gap 5.0 (3-11) BUN 13 (7-18) mg/dl Creatinine 1.15 (0.6-1.2) mg/dl Est Cr Clr Drug Dosing 35.6 ml/min Est GFR ( Amer) 50.6 ml/min Est GFR (Non-Af Amer) 43.7 ml/min BUN/Creatinine Ratio 11.2 (10-20) Glucose 107 H (70-99) mg/dl Estimat Average Glucose 134 mg/dl Hemoglobin A1c 6.3 H (4.5-5.6) % Calcium 8.9 (8.5-10.1) mg/dl Magnesium (1.8-2.4) mg/dl Total Bilirubin (0.2-1) mg/dl AST (15-37) U/L ALT (12-78) U/L Alkaline Phosphatase (45-117) U/L Troponin I < 0.015 < 0.015 (0-0.045) ng/ml Total Protein (6.4-8.2) gm/dl Albumin (3.4-5.0) gm/dl Globulin (2.5-4.0) gm/dl Albumin/Globulin Ratio (0.9-2) Triglycerides 116 (0-150) mg/dl Cholesterol 165 (0-200) mg/dl LDL Cholesterol, Calc 84 mg/dl VLDL Cholesterol, Calc 23 mg/dl HDL Cholesterol 58 mg/dl Cholesterol/HDL Ratio 3 COVID-19 Eval Order SARS-CoV-2 (PCR) (Negative) 02/26/21 02/25/21 02/25/21 Range/Units 06:53 23:30 23:30 WBC 5.90 (4.8-10.8) K/uL RBC 4.42 (4.2-5.4) M/uL Hgb 13.6 (12.0-16.0) g/dL Hct 42.8 (37-47) % MCV 96.8 (80-100) fL MCH 30.8 (25-34) pg MCHC 31.8 L (32-36) g/dL RDW Std Deviation 49.4 H (36.4-46.3) fL RDW Coeff of [place] 13.8 (11.5-14.5) % Plt Count 182 (130-400) K/uL MPV 10.4 (7.4-10.4) fL Immature Gran % (Auto) 0.2 % Neut % (Auto) 68.5 % Lymph % (Auto) 18.1 % Republic % (Auto) 10.2 % Eos % (Auto) 2.5 % Baso % (Auto) 0.5 % Neut # (Auto) 4.04 (1.4-6.5) K/uL Lymph # (Auto) 1.07 L (1.2-3.4) K/uL Republic # (Auto) 0.60 H (0.11-0.59) K/uL Eos # (Auto) 0.15 (0-0.5) K/uL Baso # (Auto) 0.03 (0-0.2) K/uL Immature Gran # (Auto) 0.01 (0.00-0.02) K/uL PT (9.0-12.0) Seconds INR (0.9-1.1) APTT (21.0-31.0) Seconds PTT Ratio Sodium (136-145) mmol/L Potassium (3.5-5.1) mmol/L Chloride (98-107) mmol/L Carbon Dioxide (21-32) mmol/L Anion Gap (3-11) BUN (7-18) mg/dl Creatinine (0.6-1.2) mg/dl Est Cr Clr Drug Dosing ml/min Est GFR ( Amer) ml/min Est GFR (Non-Af Amer) ml/min BUN/Creatinine Ratio (10-20) Glucose (70-99) mg/dl Estimat Average Glucose mg/dl Hemoglobin A1c (4.5-5.6) % Calcium (8.5-10.1) mg/dl Magnesium (1.8-2.4) mg/dl Total Bilirubin (0.2-1) mg/dl AST (15-37) U/L ALT (12-78) U/L Alkaline Phosphatase (45-117) U/L Troponin I (0-0.045) ng/ml Total Protein (6.4-8.2) gm/dl Albumin (3.4-5.0) gm/dl Globulin (2.5-4.0) gm/dl Albumin/Globulin Ratio (0.9-2) Triglycerides (0-150) mg/dl Cholesterol (0-200) mg/dl LDL Cholesterol, Calc mg/dl VLDL Cholesterol, Calc mg/dl HDL Cholesterol mg/dl Cholesterol/HDL Ratio COVID-19 Eval Order Covid19 at [facility] SARS-CoV-2 (PCR) NEGATIVE (Negative) 02/25/21 02/25/21 02/25/21 Range/Units 21:43 21:20 21:20 WBC 7.96 (4.8-10.8) K/uL RBC 4.59 (4.2-5.4) M/uL Hgb 14.0 (12.0-16.0) g/dL Hct 43.9 (37-47) % MCV 95.6 (80-100) fL MCH 30.5 (25-34) pg MCHC 31.9 L (32-36) g/dL RDW Std Deviation 48.5 H (36.4-46.3) fL RDW Coeff of [place]son 13.7 (11.5-14.5) % Plt Count 165 (130-400) K/uL MPV 10.8 H (7.4-10.4) fL Immature Gran % (Auto) 0.1 % Neut % (Auto) 79.6 % Lymph % (Auto) 10.2 % Republic % (Auto) 7.5 % Eos % (Auto) 2.1 % Baso % (Auto) 0.5 % Neut # (Auto) 6.33 (1.4-6.5) K/uL Lymph # (Auto) 0.81 L (1.2-3.4) K/uL Republic # (Auto) 0.60 H (0.11-0.59) K/uL Eos # (Auto) 0.17 (0-0.5) K/uL Baso # (Auto) 0.04 (0-0.2) K/uL Immature Gran # (Auto) 0.01 (0.00-0.02) K/uL PT 9.8 (9.0-12.0) Seconds INR 1.0 (0.9-1.1) APTT 25.8 (21.0-31.0) Seconds PTT Ratio 1.0 Sodium 139 (136-145) mmol/L Potassium 4.2 (3.5-5.1) mmol/L Chloride 109 H (98-107) mmol/L Carbon Dioxide 25 (21-32) mmol/L Anion Gap 6.0 (3-11) BUN 16 (7-18) mg/dl Creatinine 1.41 H (0.6-1.2) mg/dl Est Cr Clr Drug Dosing 29.2 ml/min Est GFR ( Amer) 39.5 ml/min Est GFR (Non-Af Amer) 34.1 ml/min BUN/Creatinine Ratio 11.3 (10-20) Glucose 171 H (70-99) mg/dl Estimat Average Glucose mg/dl Hemoglobin A1c (4.5-5.6) % Calcium 8.8 (8.5-10.1) mg/dl Magnesium 2.2 (1.8-2.4) mg/dl Total Bilirubin 0.2 (0.2-1) mg/dl AST 12 L (15-37) U/L ALT 15 (12-78) U/L Alkaline Phosphatase 82 (45-117) U/L Troponin I < 0.015 (0-0.045) ng/ml Total Protein 6.8 (6.4-8.2) gm/dl Albumin 3.3 L (3.4-5.0) gm/dl Globulin 3.5 (2.5-4.0) gm/dl Albumin/Globulin Ratio 1.0 (0.9-2) Triglycerides (0-150) mg/dl Cholesterol (0-200) mg/dl LDL Cholesterol, Calc mg/dl VLDL Cholesterol, Calc mg/dl HDL Cholesterol mg/dl Cholesterol/HDL Ratio COVID-19 Eval Order SARS-CoV-2 (PCR) (Negative) Medications Administered Current Inpatient Medications Acetaminophen (Acetaminophen 325 Mg Tab) 650 mg PO Q4H PRN PRN Reason: Pain or Fever Stop: 03/28/21 02:31 Last Admin: 02/26/21 09:08 Dose: 650 mg Documented by: Hydrocodone Bitart/Acetaminophen (Hydrocodone/Acetamophen 5/325mg Tab) 1 tab PO Q6H PRN PRN Reason: Pain Stop: 03/12/21 02:31 Albuterol (Albuterol Hfa 8 Gm Inhaler (Combivent Respimat P&T Subs)) 1 puffs INH QIDR [facility] Stop: 03/28/21 06:59 Last Admin: 02/26/21 11:01 Dose: 1 puffs Documented by: Amlodipine Besylate (Amlodipine Besylate 5 Mg Tab) 5 mg PO QAM [facility] Stop: 03/28/21 08:59 Last Admin: 02/26/21 08:19 Dose: 5 mg Documented by: Aspirin (Aspirin 81 Mg Chew) 81 mg PO QAM [facility] Stop: 03/28/21 08:59 Last Admin: 02/26/21 08:19 Dose: 81 mg Documented by: Bupropion HCl (Bupropion Sr 150 Mg Tabcr) 150 mg PO BID [facility] Stop: 03/28/21 08:59 Last Admin: 02/26/21 08:19 Dose: 150 mg Documented by: Clopidogrel Bisulfate (Clopidogrel Bisulfate 75 Mg Tab) 75 mg PO QAM [facility] Stop: 03/28/21 08:59 Last Admin: 02/26/21 08:19 Dose: 75 mg Documented by: Ergocalciferol (Ergocalciferol 50,000 Units 1250 Mcg Cap) 50,000 units PO Mo@0900 [facility] Stop: 03/30/21 08:59 Sodium Chloride (Nss 1000ml) 1,000 mls @ 75 mls/hr IV .[id number] [facility] Stop: 02/26/21 16:19 Last Admin: 02/26/21 03:50 Dose: 75 mls/hr Documented by: Ipratropium [place] (Ipratropium Hfa Inhaler (Combivent Respimat P&T Subs)) 1 puffs INH QIDR [facility] Stop: 03/28/21 06:59 Last Admin: 02/26/21 11:00 Dose: 1 puffs Documented by: Isosorbide Dinitrate (Isosorbide Dinitrate 20 Mg Tab) 20 mg PO TID@0800,1200,1800 [facility] Stop: 03/28/21 07:59 Last Admin: 02/26/21 11:35 Dose: 20 mg Documented by: Lorazepam (Lorazepam 0.5 Mg Tab) 0.5 mg PO TID PRN PRN Reason: Anxiety Stop: 03/28/21 02:31 Meclizine HCl (Meclizine Hcl 25 Mg Tab) 25 mg PO TID PRN PRN Reason: Anxiety Stop: 03/28/21 02:58 Metoprolol Succinate (Metoprolol Succ 25mg Ext Rel Tab) 12.5 mg PO QAM [facility] Stop: 03/28/21 08:59 Last Admin: 02/26/21 08:19 Dose: 12.5 mg Documented by: Miscellaneous Information (Pharmacist Discharge Med Rec Consult) 1 ea N/A UD PRN PRN Reason: Consult Stop: 03/28/21 02:31 Miscellaneous Information (Stroke Patient Discharge) 1 ea N/A NOW STA Stop: 02/26/21 14:12 Multivitamins/Minerals (Cerovite Adv Formula Tab) 1 tab PO BID [facility] Stop: 03/28/21 08:59 Last Admin: 02/26/21 08:19 Dose: 1 tab Documented by: Nitroglycerin (Nitroglycerin Sl 0.4 Mg/Tab Tab) 0.4 mg SL UD PRN PRN Reason: Chest Pain Stop: 03/28/21 02:31 Ondansetron HCl (Ondansetron Inj 2 Mg/Ml 2 Ml Vial) 4 mg IV Q6H PRN PRN Reason: Nausea Stop: 03/28/21 02:31 Polyethylene Glycol (Polyethylene (Miralax) 17 Gm Pack) 17 gm PO DAILY PRN PRN Reason: Constipation Stop: 03/28/21 02:31 Simvastatin (Simvastatin 20 Mg Tab) 20 mg PO HS TONG Stop: 03/28/21 20:59 Zolpidem Tartrate (Zolpidem Tartrate 10 Mg Tab) 10 mg PO HS PRN PRN Reason: Sleep Stop: 03/28/21 02:31 (1) Chest pain Chest pain type: unspecified Qualified Code(s): R07.9 - Chest pain, unspecified
--- NOTE | 2021-02-26 14:16 | Discharge Summary ---
Date of Service February 26, 2021 Admission HPI Per Admitting Provider This is an 85-year-old female with past medical history significant for secondary hyperparathyroidism, hyperlipidemia, COPD, hypertension, diastolic dysfunction, CAD, bilateral carotid artery stenosis, ____ artery stenosis, status post TAVR, stenosis of left vertebral artery, chronic kidney disease stage III, vitamin D deficiency, osteoporosis, osteoarthritis of left knee, numbness and tingling, macular degeneration, unilateral inguinal hernia, obesity, generalized anxiety disorder. The patient lives with her , ambulates sometimes using cane. Comes here because of chest pain and left upper extremity numbness. The patient says it is going on since the morning on and off, up and down, 5/10 to 8/10 in severity. Chest pain is like numbness kind of feeling, it is resolved, but she still has left upper extremity numbness. Currently resting comfortably and hemodynamically stable. Denies any shortness of breath. Has some nausea. No headache, no dizziness, no blurred vision, no earache, no runny nose, no sore throat, no cough, no dysphagia. Appetite is okay. No sweating, no abdominal pain. Normal bowel and bladder movements. Admission Exam Per Admitting Provider GENERAL: The patient is obese, not in acute distress. VITAL SIGNS: Temperature 36.4, pulse 91, respiratory rate 22, blood pressure 168/102, oxygen 92% on room air. HEENT: Pupils equal, round, reactive to light. Oral mucosa moist. NECK: No JVD. No neck masses. CARDIOVASCULAR: S1, S2 heard, regular rate and rhythm, no murmur, no gallop. RESPIRATORY SYSTEM: Normal AP diameter. No accessory muscle use. No wheezing, no crackles. ABDOMEN: Soft, bowel sounds present, nontender, no distention. CENTRAL NERVOUS SYSTEM: Alert and oriented. Speech is clear, no facial droop. Moves extremities. Nonfocal. EXTREMITIES: No edema, no erythema. Principal Diagnosis Upper extremity numbness, chest discomfort Discharge Exam GENERAL: The patient is obese, not in acute distress. HEENT: NC/AT, Pupils equal, round, reactive to light. Oral mucosa moist. NECK: No JVD. No neck masses. CARDIOVASCULAR: S1, S2 heard, regular rate and rhythm, no murmur, no gallop. RESPIRATORY: Normal AP diameter. No accessory muscle use. No wheezing, no crackles. ABDOMEN: Soft, bowel sounds present, nontender, no distention. NEURO: Alert and oriented x3. Speech is clear, no facial droop. Moves extremities. Nonfocal. EXTREMITIES: No edema, no erythema. Discharge Data Allergies Allergy/AdvReac Type Severity Reaction Status Date / Time Sulfa (Sulfonamide Allergy Mild "SULFA Verified 02/25/21 22:11 Antibiotics) DRUGS": UNKNOWN atenolol Allergy Unknown RASH AND Verified 02/25/21 22:11 ITCHING-TAKES TOPROL-XL AT HOME lisinopril AdvReac Unknown COUGH Unverified 02/25/21 22:11 Consultations 02/25/21 23:15 ED Decision to Admit Stat 02/26/21 08:00 Consult Cardiology Routine Consult Neurology Routine Ordered Studies 02/25/21 21:11 CT head/brain wo con Urgent IMPRESSION: No acute intracranial findings 02/26/21 02:32 MR brain wo/w con Urgent IMPRESSION: 1. No acute intracranial findings 2. No evidence of acute or subacute infarction 3. No evidence of intracranial mass US carotid doppler BI Routine IMPRESSION: No evidence of hemodynamically significant carotid stenosis. Hospital Course (1) Chest pain: (2) Left upper extremity numbness: This is an 85-year-old female who presents with chest pain, numbness feeling of the chest, and also left upper extremity numbness. 1. Chest pain: Rule out acute coronary syndrome. Hx of cardiac catheterization in January 2019. The patient is on aspirin, Plavix, statin, and beta zainab. Troponin x3 - negative Echo - LV is normal in size. Moderate concentric LVH. Septal motion is consistent with conduction abnormality. No regional wall motion abnormalities noted. EF 60 to 65%. Grade 1 diastolic dysfunction. Patient is status post TAVR with a stable valve structure. Leaflets in limited visibility. Freely mobile. The gradient is normal for this prosthetic aortic valve. There is moderate calcification of the posterior mitral valve annulus was preserved leaflet mobility. There is trace mitral regurg. There is mild to moderate tricuspid regurg. RV systolic pressure is elevated at 40 to 55 mmHg. Cardiology consulted for further recommendations. - recommend event monitor post discharge to exclude paroxysmal atrial arrhythmias. 2. Left upper extremity numbness: ?cardiac, could be TIA or rule out CVA with MRI scan of the head. CT of the head is unremarkable MRI brain -no evidence of acute or subacute infarction. Carotid Doppler -no evidence of hemodynamically significant carotid stenosis. Follow echo and consult neurology for further recommendation. Per neurology - Recommend outpatient EMG of the left upper extremity. Ok to discharge from neurology standpoint. 3. History of calcified aortic stenosis: Status post TAVR. History of left bundle branch block post-TAVR, history of carotid artery disease, follow up. 4. History of chronic obstructive pulmonary disease: Former smoker, quit in 2014. Continue home inhalers, currently stable. 5. Hypertension: Continue Toprol-XL, amlodipine. We will monitor the blood pressure. 6. History of hyperlipidemia: On statin. Follow lipid profile. 7. History of diastolic dysfunction. Follow echo and nitrate, and beta zainab. 8. Generalized anxiety disorder: Continue Ativan p.r.n. and bupropion. 9. Gastroesophageal reflux disease. DVT prophylaxis: Sequential compression devices for now. Disposition: Plan to discharge home, follow-up with cardiology and neurology and PCP Total Time Total Time Spent Total Time Spent (In Minutes): 40 Total Time Includes: Examination of the Patient, Discharge Planning, Medication Reconciliation and Communication With Other Providers Discharge Plan Discharge Items Patient Disposition: Home - Self-Care Reason For Visit: CHEST PAIN Discharge Diagnosis: Upper extremity numbness, chest discomfort Activity: Per Instructions section Non-emergency contact: Primary Care Provider, [employer] and Neurologist Call non-emergency contact if: you have any medication questions and your symptoms worsen Follow-up/Referrals: Klaus Douglas MD [Primary Care Provider] - Diet: Heart Healthy Addtl Attending Provider Instructions: Follow-up with your primary care provider within 1 to 2 weeks. At this point there were no medication changes made. Continue taking your aspirin and Plavix as prior. It is recommended that you follow-up with cardiology, to check your heart for any possible arrhythmias/abnormal rhythms. You will be contacted about the appointment. It is also recommended to follow-up with neurology for your upper extremity numbness. You will be contacted about the appointment as well. Pending Studies at Discharge: No Stand-Alone Forms: My [employer], Smoking Cessation Medications and DC Order Prescriptions: Continued Combivent Respimat 20-100 mcg/actuation mist 2 puff INHALATION QID Qty: 12 RF: 5 aspirin 81 mg tablet,chewable 81 mg PO QAM Qty: 90 RF: 3 amlodipine 10 mg Tablet 5 mg PO QAM RF: 0 zolpidem [Ambien] 10 mg Tablet 10 mg PO HS PRN (Reason: Sleep) RF: 0 meclizine 25 mg Tablet,Chewable 25 mg PO TID PRN (Reason: Anxiety) RF: 0 clopidogrel 75 mg tablet 75 mg PO QAM RF: 0 metoprolol succinate 25 mg tablet extended release 24 hr 12.5 mg PO QAM RF: 0 bupropion HCl 150 mg tablet sustained-release 12 hr 150 mg PO BID RF: 0 hydrocodone-acetaminophen 5-325 mg tablet 1 - 2 tab PO .Q4-6 HRS PRN (Reason: Pain) RF: 0 lorazepam 0.5 mg Tablet 0.5 - 1 mg PO TID PRN (Reason: Anxiety) RF: 0 simvastatin 20 mg Tablet 20 mg PO HS RF: 0 isosorbide dinitrate 20 mg Tablet 20 mg PO TID RF: 0 ergocalciferol (vitamin D2) 50,000 unit Capsule 50,000 unit PO WK RF: 0 PreserVision AREDS-2 [id number] Capsule 1 tab PO BID RF: 0 amoxicillin 500 mg capsule 2,000 mg PO DIRECTED PRN (Reason: premedication for dental appt) RF: 0 ondansetron 4 mg Tablet,Disintegrating 4 - 8 mg PO Q8H PRN (Reason: Nausea) RF: 0 Discharge Orders: Discharge Order (Routine); Ordered 02/26/21 Ordered By: Leo Man Admission Data Admit Date/Time: 02/26/21 01:10 Attending Provider: Leo Man Admit Provider: Matthew Frausto Primary Care Provider: Klaus Douglas Other Providers: Matthew Frausto ; Mark Marte ; Mark Singh ; Larry Miranda ; Jason Torres ; Addy Garland ; Olu Hernandez ; Madison May ; Rizwana Butts ; Kiah Jenkins ; Cj Erazo ; Neymar Baird Other Interventions: Discharge Summary Assessment (RN) Last Done: 02/26/21 14:14
--- NOTE | 2021-02-26 14:41 | Communication Note ---
Date of Service: February 26, 2021 Code 44 attestation: She is an 85-year-old female with significant past cardiac history was admitted with TIA symptoms and was evaluated by credit collections rep. She has been feeling a lot better and will be discharged home today. Her chart , labs and imaging studies reviewed. By CMS guidelines, a determination that the admission or continued stay is not medically necessary has been made by a member of the UR committee and a physician for this hospital stay, therefore a Code 44 will be completed and the Inpatient admission will be changed to outpatient. Dr Ivette Suarez Member UR Committee
--- NOTE | 2021-02-26 14:50 | Consultation Report ---
DATE OF CONSULTATION: 02/26/2021 NEUROLOGY CONSULTATION NOTE CHIEF COMPLAINT: Left arm numbness. HISTORY OF PRESENT ILLNESS: An 85-year-old woman with a history of aortic valve stenosis, carotid artery stenosis, chronic kidney disease, hypertension, presented to the Emergency Department yesterday for left arm numbness. Her symptoms began Sunday at 1:00 p.m. Her symptoms had resolved upon arrival. She also reported some nausea as well as some vertigo. She also noted some chest discomfort. She had no difficulty breathing. She has been vaccinated against COVID-19. There were no fevers, no loss of consciousness or shortness of breath. The patient is on Plavix as well as a statin medication. The patient was admitted from the Emergency Department for evaluation of possible stroke versus transient ischemic attack. Neurology was consulted upon admission. HOME MEDICATIONS: Amlodipine, meclizine, Ambien, Wellbutrin, Plavix 75 mg daily, vitamin D, Ativan as needed, Percocet as needed, isosorbide dinitrate, simvastatin 20 mg nightly, amoxicillin as needed, Zofran as needed, aspirin. ALLERGIES: SULFA, ATENOLOL, LISINOPRIL. PAST MEDICAL HISTORY: Aortic valve stenosis, carotid stenosis, chronic kidney disease, COPD, dyslipidemia, gastroesophageal reflux disease, hypertension, left bundle branch block, osteoporosis. PAST SURGICAL HISTORY: Hernia repair, laminectomy, cataract surgery, hysterectomy, cholecystectomy, TAVR, tonsillectomy, status post total hip replacement on the right. FAMILY HISTORY: Pertinent for history of stroke. SOCIAL HISTORY: She is a former smoker. Denies any alcohol use. She is . REVIEW OF SYSTEMS: A 14-point review of systems is negative except as noted above in the HPI. PHYSICAL EXAMINATION: VITAL SIGNS: Blood pressure 149/79, pulse is 91, respiratory rate is 20, temperature is 36.6 degrees Celsius. GENERAL: The patient appears normally developed, appears stated age, she is in no distress. HEENT: Head is normocephalic and atraumatic. Normal eyelids, normal conjunctivae. NECK: Supple. LUNGS: Normal respiratory effort. CARDIOVASCULAR: Normal cardiac pulses. ABDOMEN: Nondistended. SKIN: No skin rashes present. PSYCHIATRIC: Normal mood and normal affect. NEUROLOGIC: She is awake, alert, oriented to person, place and time. Her attention is normal. Knowledge is appropriate. Comprehension is intact, no aphasia, no dysarthria. No visual defect on confrontation. Pupils are symmetric. Extraocular muscles are intact. Eyes are midline. Facial sensation is intact. No facial asymmetry. Intact hearing. Palate is symmetric. Good shoulder shrug. Tongue is midline with no abrasions. Gait evaluation deferred. Coordination: No tremor or myoclonic jerks, no ataxia with [id number] testing. Sensation is intact to light touch. Muscle tone is normal. Muscle examination, 5/5 throughout, reflexes, no ankle clonus, Rodolfo sign is negative. DIAGNOSTIC TESTING AND LABORATORY VALUES: WBC 5.90, hemoglobin 13.6, platelet count is 182. INR is 1.0. Sodium is 139, potassium 4.2, chloride is 109, BUN is 16, creatinine 1.41. Hemoglobin A1c is pending. Magnesium 2.2. AST is 12, ALT is 15. Troponin is negative, second troponin is pending. Cholesterol is pending. LDL cholesterol is pending. IMAGING: Head CT noncontrast showed no acute intracranial findings. No intra or extraaxial mass. No evidence of acute infarction. No evidence of midline shift. No acute hemorrhage. ASSESSMENT AND PLAN: A pleasant 85-year-old woman with a history of hypertension, chronic kidney disease, hyperlipidemia, admitted with left arm numbness. Symptoms improved. CT head shows no evidence of acute hemorrhage or intracranial process. The patient is currently on dual antiplatelet therapy, aspirin 81 mg daily as well as Plavix 75 mg daily. MRI of the brain without contrast reviewed and shows no evidence of acute ischemic stroke. Carotid ultrasound shows no high grade stenosis. Transthoracic echocardiogram completed.. Would continue dual antiplatelet for now. Recommend outpatient EMG of the left upper extremity. Ok to discharge from neurology standpoint. MTDD
--- NOTE | 2021-02-26 14:50 | History and Physical Report ---
DATE OF ADMISSION: 02/26/2021 CHIEF COMPLAINT: Chest pain and numbness in the left upper extremity. HISTORY OF PRESENT ILLNESS: This is an 85-year-old female with past medical history significant for secondary hyperparathyroidism, hyperlipidemia, COPD, hypertension, diastolic dysfunction, CAD, bilateral carotid artery stenosis, severe aortic stenosis, status post TAVR, stenosis of left vertebral artery, chronic kidney disease stage III, vitamin D deficiency, osteoporosis, osteoarthritis of left knee, numbness and tingling, macular degeneration, unilateral inguinal hernia, obesity, generalized anxiety disorder. The patient lives with her , ambulates sometimes using cane. Comes here because of chest pain and left upper extremity numbness. The patient says it is going on since the morning on and off, up and down, 5/10 to 8/10 in severity. Chest pain is like numbness kind of feeling, it is resolved, but she still has left upper extremity numbness. Currently resting comfortably and hemodynamically stable. Denies any shortness of breath. Has some nausea. No headache, no dizziness, no blurred vision, no earache, no runny nose, no sore throat, no cough, no dysphagia. Appetite is okay. No sweating, no abdominal pain. Normal bowel and bladder movements. ALLERGIES: SULFA ANTIBIOTICS, ATENOLOL, LISINOPRIL. PAST MEDICAL HISTORY: As mentioned above. PAST SURGICAL HISTORY: Appendectomy, carpal tunnel surgery, cataract surgery, colonoscopy, left heart catheterization, right heart catheterization, hemilaminectomy, hemorrhoidectomy, injection of the eye drug, tonsillectomy and adenoidectomy, TAVR, total abdominal hysterectomy with removal of tubes, total hip replacement and prosthesis of the right hip. MEDICATIONS: The patient is on amlodipine 5 mg p.o. daily, amoxicillin p.r.n., aspirin 81 mg p.o. daily, bupropion 150 mg p.o. b.i.d., Plavix 75 mg p.o. daily, vitamin D 50,000 units p.o. weekly, hydrocodone/acetaminophen 1-2 tablets p.o. q. 4-6 hours p.r.n., Combivent q.i.d.,isosorbide dinitrate 20 mg p.o. t.i.d., Ativan 0.5-1 mg p.o. t.i.d. p.r.n., meclizine 25 mg p.o. t.i.d. p.r.n., Toprol-XL 12.5 mg p.o. a.m., Zofran 4-8 mg p.o. q. 8 hours p.r.n., PreserVision AREDS 2 one tablet p.o. b.i.d., simvastatin 20 mg p.o. at bedtime, Ambien 10 mg p.o. at bedtime p.r.n. FAMILY HISTORY: Significant for mother has arthritis and hypertension; father had cancer. SOCIAL HISTORY: . Former smoker, quit in 2014. Smoked 2 packs a day for 60 years. No alcohol use, no drug use. REVIEW OF SYSTEMS: As per HPI. Rest of review of systems negative. PHYSICAL EXAMINATION: GENERAL: The patient is obese, not in acute distress. VITAL SIGNS: Temperature 36.4, pulse 91, respiratory rate 22, blood pressure 168/102, oxygen 92% on room air. HEENT: Pupils equal, round, reactive to light. Oral mucosa moist. NECK: No JVD. No neck masses. CARDIOVASCULAR: S1, S2 heard, regular rate and rhythm, no murmur, no gallop. RESPIRATORY SYSTEM: Normal AP diameter. No accessory muscle use. No wheezing, no crackles. ABDOMEN: Soft, bowel sounds present, nontender, no distention. CENTRAL NERVOUS SYSTEM: Alert and oriented. Speech is clear, no facial droop. Moves extremities. Nonfocal. EXTREMITIES: No edema, no erythema. LABORATORY DATA: WBC 7.9, hemoglobin 14, hematocrit 43.9, platelets 165. PT 9.8, INR 1, APTT 25.8. Sodium 139, potassium 4.2, chloride 109, bicarbonate 25, BUN 16, creatinine 1.4, serum glucose 171, calcium 8.8, magnesium 2.2, total bilirubin 0.2, AST 12, ALT 15, alkaline phosphatase 82. Troponin I less than 0.015. SARS-CoV-2 PCR negative. IMAGING DATA: CT of the head, preliminary report, no acute findings. Chest x-ray, no acute findings. EKG: Normal sinus rhythm at a rate of 90, left bundle branch block, no significant change was found. ASSESSMENT AND PLAN: This is an 85-year-old female who presents with chest pain, numbness feeling of the chest, and also left upper extremity numbness. 1. Chest pain: Rule out acute coronary syndrome. Diffuse minor CAD on cardiac catheterization in January 2019. The patient is on aspirin, Plavix, statin, and beta zainab and nitrate.. We will follow serial enzymes, echo. We will keep n.p.o. after midnight. Consult cardiology in the a.m. for further recommendations. 2. Left upper extremity numbness: Possibly cardiac, rule out CVA with MRI scan of the head. CT of the head is unremarkable . Will do carotid Doppler. Follow echo and consult neurology for further recommendation. 3. History of severe aortic stenosis: Status post TAVR. History of left bundle branch block post-TAVR, history of carotid artery disease, follow up. 4. History of chronic obstructive pulmonary disease: Former smoker, quit in 2014. Continue home inhalers, currently stable. 5. Hypertension: Continue Toprol-XL, amlodipine. We will monitor the blood pressure. 6. History of hyperlipidemia: On statin. Follow lipid profile. 7. History of diastolic dysfunction. Follow echo. On nitrate, and beta zainab. 8. Generalized anxiety disorder: Continue Ativan p.r.n. and bupropion. 9. Gastroesophageal reflux disease. 10. Deep venous thrombosis prophylaxis: Sequential compression devices for now. 11. Disposition: Closely monitor in the tele floor. Level 1 full code. Expect to discharge home and follow with family doctor. PT and OT prior to discharge. Social service to help with discharge planning. BENNIE
--- NOTE | 2021-02-26 14:57 | Electrocardiogram Report ---
Test Reason : Blood Pressure : / mmHG Vent. Rate : 092 BPM Atrial Rate : 092 BPM P-R Int : 178 ms QRS Dur : 126 ms QT Int : 378 ms P-R-T Axes : 092 011 115 degrees QTc Int : 467 ms Normal sinus rhythm Left bundle branch block Abnormal ECG When compared with ECG of 30-MAY-2019 07:19, Left bundle branch block is now Present Confirmed by Kahlil Burks ([id number]) on 02/26/2021 2:57:17 PM Referred By: REFERRED SELF Confirmed By:Kahlil Burks
--- NOTE | 2021-02-26 15:06 | Electrocardiogram Report ---
Test Reason : Blood Pressure : / mmHG Vent. Rate : 090 BPM Atrial Rate : 090 BPM P-R Int : 196 ms QRS Dur : 128 ms QT Int : 402 ms P-R-T Axes : 084 -08 106 degrees QTc Int : 491 ms Normal sinus rhythm Left bundle branch block Abnormal ECG When compared with ECG of 25-FEB-2021 21:10, (unconfirmed) No significant change was found Confirmed by Kahlil Burks ([id number]) on 02/26/2021 3:05:59 PM Referred By: REFERRED SELF Confirmed By:Kahlil Burks
[2021-02-26] MEDS ORDERED: SIMVASTATIN 20 MG TAB PO SCH (21:00)
[2021-02-28] MEDS ORDERED: ERGOCALCIFEROL 50,000 UNITS 1250 MCG CAP PO SCH (09:00)
== END 2021-02-26 15:48 | disposition home or self-care (01) ==
LOC: ED 20:48 → 2S 02-26 01:10 → INTOOBSV 02-26 01:10 → 2S 02-26 02:05

== ENCOUNTER 2021-08-17 06:26 | Observation (INO) ==
--- NOTE | 2021-08-04 14:15 | PAT Medication Instructions ---
Medication Instructions Date of Service August 04, 2021 Home Medications Medication Instructions Recorded ipratropium 20 mcg-albuterol 100 2 puff INHALATION QID #12 g 05/03/ mcg/actuation mist for inhalation (Combivent Respimat) aspirin 81 mg chewable tablet 81 mg PO QAM #90 tab 11/18/20 albuterol sulfate 90 mcg/actuation 1 inh INHALATION QID PRN #18 g 03/02/21 aerosol inhaler (Ventolin HFA) fluticasone fur. 100 mcg-umeclid 1 inh INHALATION DAILY #60 ea 07/08/21 62.5 mcg-vilant 25 mcg inhalat.powder (Trelegy Ellipta) amlodipine 10 mg tablet 5 mg PO QAM meclizine 25 mg chewable tablet 25 mg PO TID PRN isosorbide dinitrate 20 mg tablet 20 mg PO TID lorazepam 0.5 mg tablet 0.5 - 1 mg PO TID PRN metoprolol succinate 25 mg tablet,extended release 24 hr 12.5 mg PO QAM simvastatin 20 mg tablet 20 mg PO HS vit C 250 mg-vit E 90 mg-zinc 40 mg-copper 1 [id number] capsule (PreserVision AREDS-2) 1 tab PO BID ipratropium 20 mcg-albuterol 100 mcg/actuation mist for inhalation (Combivent Respimat) 2 puff INHALATION QID amoxicillin 500 mg capsule 2,000 mg PO DIRECTED PRN ondansetron 4 mg disintegrating tablet 4 - 8 mg PO Q8H PRN aspirin 81 mg chewable tablet 81 mg PO QAM albuterol sulfate 90 mcg/actuation aerosol inhaler (Ventolin HFA) 1 inh INHALATION QID PRN umeclidinium 62.5 mcg-vilanterol 25 mcg/actuation powdr for inhalation (Anoro Ellipta) 1 inh INHALATION QAM fluticasone fur. 100 mcg-umeclid 62.5 mcg-vilant 25 mcg inhalat.powder (Trelegy Ellipta) 1 inh INHALATION DAILY cholecalciferol (vitamin D3) 25 mcg (1,000 unit) tablet (Vitamin D3) 25 mcg PO QAM docusate sodium 100 mg capsule (Colace) 100 mg PO QAM mirtazapine 15 mg disintegrating tablet 15 mg PO HS oxycodone 5 mg tablet 5 mg PO Q8H PRN polyethylene glycol 3350 17 gram oral powder packet (Miralax) 17 g PO DAILY PRN Continue as directed amoxicillin 500 mg capsule 2,000 mg PO DIRECTED PRN (if needed) ondansetron 4 mg disintegrating tablet 4 - 8 mg PO Q8H PRN(if needed) ASK your prescriber and surgeon aspirin 81 mg chewable tablet 81 mg PO QAM STOP taking 2 weeks before surgery vit C 250 mg-vit E 90 mg-zinc 40 mg-copper 1 [id number] capsule (PreserVision AREDS-2) 1 tab PO BID DO NOT take the morning of surgery cholecalciferol (vitamin D3) 25 mcg (1,000 unit) tablet (Vitamin D3) 25 mcg PO QAM docusate sodium 100 mg capsule (Colace) 100 mg PO QAM polyethylene glycol 3350 17 gram oral powder packet (Miralax) 17 g PO DAILY PRN Take morning of surgery With a small sip of water, OTHERWISE NOTHING TO EAT OR DRINK AFTER MIDNIGHT: amlodipine 10 mg tablet 5 mg PO QAM meclizine 25 mg chewable tablet 25 mg PO TID PRN(if needed) isosorbide dinitrate 20 mg tablet 20 mg PO TID lorazepam 0.5 mg tablet 0.5 - 1 mg PO TID PRN (if needed) metoprolol succinate 25 mg tablet,extended release 24 hr 12.5 mg PO QAM ipratropium 20 mcg-albuterol 100 mcg/actuation mist for inhalation (Combivent Respimat) 2 puff INHALATION QID albuterol sulfate 90 mcg/actuation aerosol inhaler (Ventolin HFA) 1 inh INHALATION QID PRN(use if needed; please bring with you to hospital day of surgery if possible). umeclidinium 62.5 mcg-vilanterol 25 mcg/actuation powdr for inhalation (Anoro Ellipta) 1 inh INHALATION QAM fluticasone fur. 100 mcg-umeclid 62.5 mcg-vilant 25 mcg inhalat.powder (Trelegy Ellipta) 1 inh INHALATION DAILY oxycodone 5 mg tablet 5 mg PO Q8H PRN(okay to take up to 4 hours prior to surgery if needed). Take evening before surgery isosorbide dinitrate 20 mg tablet 20 mg PO TID meclizine 25 mg chewable tablet 25 mg PO TID PRN(if needed) lorazepam 0.5 mg tablet 0.5 - 1 mg PO TID PRN(if needed) simvastatin 20 mg tablet 20 mg PO HS ipratropium 20 mcg-albuterol 100 mcg/actuation mist for inhalation (Combivent Respimat) 2 puff INHALATION QID albuterol sulfate 90 mcg/actuation aerosol inhaler (Ventolin HFA) 1 inh INHALATION QID PRN(if needed) mirtazapine 15 mg disintegrating tablet 15 mg PO HS oxycodone 5 mg tablet 5 mg PO Q8H PRN(if needed) Other Notes If you have any questions please call us at [phone] or [phone] or [phone] or [phone]
--- NOTE | 2021-08-05 12:50 | Anesthesiology Consultation ---
Date of Service August 05, 2021 Assessment & Plan (1) Encounter for pre-operative examination: - awaiting pre-op U/A, pt planning to bring specimen to [facility]. - cardiology office visit and pre-op evaluation 08/12/2021 [facility] 06/01/2021: "...history of bilateral total hip arthroplasty with frequent dislocation of left experienced a fall at home causing small right SAH and dislocation of left hip. She remains off her home Plavix and back on [address] scan of head prior to anticipated surgery. This will be reviewed by Neurosurgery prior to anticipated revision of left total hip which would be followed by jourdan VTE prophylaxis. Appears to be under ambulatory and functional baseline in no need of current therapy. After anticipated left total hip revision, therapy to be guided by providers in her local region. No need to return to this clinic." Patient subsequently had repeat imaging which showed resolution of subdural hematoma. - Case discussed in detail with Dr. Brown who advised he feels nothing further is needed from neurologic or neurosurgery history standpoint prior to surgery. - COVID screening: Per assessment on 07/26/2021: Travel screen negative, no known COVID-19 positive contacts or current COVID-19 related symptoms. Patient vaccinated. Surgeon arranging preop COVID testing, scheduled 08/15/2021. Awaiting results. Chart Review Chart Review: Pending: Refer to Additional Notes / Consult section and Patient seen in Pre Admission Testing Teaching & Discussion Pre-Anesthesia Teaching/Discussion Notes: Instructed NPO after midnight before surgery, except medications with 15 cc of water. Medication instructions provided according to the PAT guidelines. History Surgery Operation Date: 08/17/21 10:40 Proposed Procedures p Conversion to Contrained Liner Left Hip Depuy System - Darius Matson MD Height/Weight Height: 5 ft 3 in Weight: 73.1 kg Allergies Allergy/AdvReac Type Severity Reaction Status Date / Time atenolol Allergy Intermediate RASH AND Verified 08/04/21 11:10 ITCHING-TAKES TOPROL-XL AT HOME Sulfa (Sulfonamide Allergy Mild "SULFA Verified 08/04/21 11:10 Antibiotics) DRUGS": UNKNOWN lisinopril AdvReac Intermediate COUGH Verified 08/04/21 11:10 Medications Home Medications Medication Instructions Recorded Confirmed Last Taken amlodipine 10 mg tablet 5 mg PO QAM 12/31/18 08/04/21 06/22/21 meclizine 25 mg chewable tablet 25 mg PO TID PRN 12/31/18 08/04/21 05/29/19 isosorbide dinitrate 20 mg tablet 20 mg PO TID 05/29/19 08/04/21 06/22/21 lorazepam 0.5 mg tablet 0.5 - 1 mg PO TID PRN 05/29/19 08/04/21 Unknown metoprolol succinate 25 mg 12.5 mg PO QAM 05/29/19 08/04/21 06/22/21 tablet,extended release 24 hr simvastatin 20 mg tablet 20 mg PO HS 05/29/19 08/04/21 06/21/21 vit C 250 mg-vit E 90 mg-zinc 40 1 tab PO BID 05/29/19 08/04/21 06/22/21 mg-copper 1 [id number] capsule (PreserVision AREDS-2) ipratropium 20 mcg-albuterol 100 2 puff INHALATION QID #12 g 05/03/20 08/04/21 06/22/21 mcg/actuation mist for inhalation (Combivent Respimat) amoxicillin 500 mg capsule 2,000 mg PO DIRECTED PRN 05/16/20 08/04/21 Unknown ondansetron 4 mg disintegrating 4 - 8 mg PO Q8H PRN 05/16/20 08/04/21 Unknown tablet aspirin 81 mg chewable tablet 81 mg PO QAM #90 tab 11/18/20 08/04/21 06/22/21 albuterol sulfate 90 mcg/actuation 1 inh INHALATION QID PRN #18 g 03/02/21 08/04/21 06/22/21 aerosol inhaler (Ventolin HFA) umeclidinium 62.5 mcg-vilanterol 1 inh INHALATION QAM 06/22/21 08/04/21 06/22/21 25 mcg/actuation powdr for inhalation (Anoro Ellipta) fluticasone fur. 100 mcg-umeclid 1 inh INHALATION DAILY #60 ea 07/08/21 08/04/21 Unknown 62.5 mcg-vilant 25 mcg inhalat.powder (Trelegy Ellipta) cholecalciferol (vitamin D3) 25 25 mcg PO QAM 08/04/21 08/04/21 Unknown mcg (1,000 unit) tablet (Vitamin D3) docusate sodium 100 mg capsule 100 mg PO QAM 08/04/21 08/04/21 Unknown (Colace) mirtazapine 15 mg disintegrating 15 mg PO HS 08/04/21 08/04/21 Unknown tablet oxycodone 5 mg tablet 5 mg PO Q8H PRN 08/04/21 08/04/21 Unknown polyethylene glycol 3350 17 gram 17 g PO DAILY PRN 08/04/21 08/04/21 Unknown oral powder packet (Miralax) Past Medical History Medical History (Updated 08/08/21 @ 12:24 by Sonia Valle PA-C) Carotid stenosis 50-69% TONNY 03/12/2019 duplex per [facility] CKD (chronic kidney disease), stage III COPD (chronic obstructive pulmonary disease) follows with [facility], on Trelegy Coronary artery disease "diffuse minor CAD by cardiac catheterization 01/27/2019" per [facility] note 06/29/2021 Dyslipidemia Dyspnea GERD (gastroesophageal reflux disease) controlled, stable per pt Hip dislocation, left currently in a brace HTN (hypertension) controlled, stable per pt Left bundle branch block chronic per [facility] note-noted post TAVR 05/27/2019 per [facility] note Macular degeneration Multiple pulmonary nodules determined by computed tomography of lung no further imaging needed given stability from 2019 per [facility] note 07/08/2021 Osteoporosis Transient ischemic attack (TIA) possible per cardio note, 02/26/2021-negative CT and MRI imaging-on ASA per cardio with Plavix d/c due to subdural hematoma that subsequently resolved ( cleared by neurosurgery [facility]) Traumatic subarachnoid hemorrhage Vertebral artery stenosis 75% stenosis of left vertebral artery per 05/30/2019 neck CTA Vertigo Patient denies h/o stroke, seizures, heart attack, heart failure, blood clots or blood transfusions. Exercise / Class Metabolic Activity III < 4 Walking/Shop/Light housework (SOB with activity such as vaccuming ) Past Family History Family History Other No family history of adverse response to anesthesia Stroke Past Surgical History Surgical History Fusion of spine H/O hernia repair RT INGUINAL HERNIA History of cardiac catheterization 05/15/2019 TAVR. 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 Bearden at [facility], 02/26/2021-normal gradient S/P tonsillectomy and adenoidectomy Status post total hip replacement, right Past Anesthesia History No Hx of Anesthesia Complications and No Family Hx of Anesthesia Complications History of PONV No Hx of PONV and No Hx of Motion Sickness Social History Smoking Status: Former smoker tobacco type: cigarettes Do You Dip or Chew Tobacco: No Smoking End Date: 7 YEARS AGO Hx Alcohol Use: No Hx Substance Use: No substance use type: does not use Review of Systems Chronic dyspnea on exertion felt to be multifactorial per [facility] note 06/2021. Snoring per , denies witnessed apneas or sleep studies. Occasional palpitations, denies associated dizziness or lightheadedness. Patient denies chest pain, snoring, witnessed apneas, fever, chills, cough, and wheezing. Physical Exam Vital Signs Vitals BP 119/78 P 82 TEMP 98.3 SP02 95% on RA RESP 17 Physical Full cervical extension range of motion without pain TMD 3 finger breaths Mallampati Score 2 Dentition: intact, missing most teeth-remaining front teeth; denies partials, implants, caps/crowns, or bridges Lungs: normal respiratory effort. Clear throughout to auscultation, no adventitious breath sounds Cardiac: regular rate and rhythm, no murmurs noted Carotid arteries: negative bruit bilat Extremities: no distal extremity edema Lab Results Anesthesia Preop Results Results Anesthesia Widget: WBC 6.92 K/uL (4.8-10.8) 08/05/21 Hgb 13.5 g/dL (12.0-16.0) 08/05/21 Hct 43.8 % (37-47) 08/05/21 Plt 206 K/uL (130-400) 08/05/21 Na 143 mmol/L (136-145) 08/05/21 K 4.2 mmol/L (3.5-5.1) 08/05/21 Cl 109 mmol/L (98-107) H 08/05/21 CO2 28 mmol/L (21-32) 08/05/21 BUN 13 mg/dl (7-18) 08/05/21 Creat 1.19 mg/dl (0.6-1.2) 08/05/21 Glucose Level 91 mg/dl (70-99) 08/05/21 PT 10.0 Seconds (9.0-12.0) 08/05/21 PTT 26.8 Seconds (21.0-31.0) 08/05/21 INR 1.0 (0.9-1.1) 08/05/21 Urine Color Pending 08/08/21 Urine Appearance Pending 08/08/21 Urine pH Pending 08/08/21 Urine Specific [place] Pending 08/08/21 Urine Protein Pending 08/08/21 Urine Glucose (UA) Pending 08/08/21 Urine Ketones Pending 08/08/21 Urine Blood Pending 08/08/21 Urine Nitrite Pending 08/08/21 Urine Bilirubin Pending 08/08/21 Urine Urobilinogen Pending 08/08/21 Urine Leukocyte Esterase Pending 08/08/21 Blood Type O Positive 08/05/21 Antibody Screen NEGATIVE 08/05/21 Testing Electrocardiogram Date: 04/30/21 Normal sinus rhythm, rate 90 bpm. Left bundle branch block Abnormal ECG When compared with ECG of 26-FEB-2021 07:39, No significant change was found Confirmed by Jose Malave. Chest X-Ray Date: 08/05/21 There is an aortic valve prosthesis noted. Calcified plaque within the aortic knob, unchanged. No focal lung consolidations to suggest pneumonia. No evidence for pulmonary edema. Partially visualized lumbar spinal fusion hardware. [id number] degenerative changes within the thoracic spine. There is severe degenerative disc disease within the upper lumbar spine. IMPRESSION: No acute process. Echocardiogram Date: 02/26/21 EF 60-65%. s/p TAVR with stable valve structure. Leaflets in limited visibility appear freely mobile. Gradient normal for this prosthetic aortic valve. Moderate cLVH. Left ventricle normal in size. Septal motion is consistent with conduction abnormality. No regional wall motion abnormalities noted. Grade I diastolic dysfunction. Mild to moderate tricuspid regurgitation. Right ventricular systolic pressure is elevated at 40-50 mmHg. No ASD detected; PFO is not assessed. Other Testing Head CT 04/30/2021: IMPRESSION: 1. Slight hyperdensity of the right tentorium is likely artifactual. A 24-hour follow-up head CT could be considered to exclude the less likely possibility of a trace subdural hematoma. 2. No acute calvarial fracture. 3. Large left periorbital hematoma. Pt had subsequent head CT 06/22/2021. Head CT 06/22/2021: FINDINGS: No acute intracranial hemorrhage, midline shift, intracranial mass, hydrocephalus, territorial ischemia or abnormal extra-axial collection. Age- related involutional changes. Mild white matter hypodensities suggestive of chronic microvascular ischemic disease. Cerebral vascular calcifications. The calvarium is intact. Trace right mastoid effusion. Left mastoid air cells are clear. Mild mucosal thickening of the ethmoid air cells and left maxillary sinus. Unremarkable soft tissues. Prior bilateral lens repair. IMPRESSION: No acute intracranial abnormality or calvarial fracture. Cervical spine CT 06/22/2021: Severe disc space narrowing at C3-C4 with mild retrolisthesis of C3 on C4. There is moderate disc space narrowing throughout the remaining cervical spine. This is similar to the prior study. IMPRESSION: No fractures within the cervical spine. "Outpatient [facility] monitor report reviewed dated May 2021: CONCLUSIONS: Patient had a min HR of 55 bpm, max HR of 190 bpm, and avg HR of 73 bpm. Predominant underlying rhythm was Sinus Rhythm. Bundle Branch Block/IVCD was present. 27 Supraventricular Tachycardia runs occurred, the run with the fastest interval lasting 10 beats with a max rate of 190 bpm, the longest lasting 16.9 secs with an avg rate of 92 bpm. Isolated SVEs were rare (<1.0%), SVE Couplets were rare (<1.0%), and SVE Triplets were rare (<1.0%). Isolated VEs were rare (<1.0%, 365), VE Couplets were rare (<1.0%, 32), and no VE Triplets were present. QRS morphology changes were present due to Intermittent Bundle Branch Block. Agree with above. No sustained arrhythmias. Rare ectopy including 27 runs of PSVT the longest lasting 17 seconds. " [facility] cardio 06/29/2021 note Carotid artery duplex 05/19/2021: Impression: Right carotid artery duplex examination indicates evidence of 50-69% stenosis of the internal carotid artery. Left carotid artery duplex examination indicates evidence of less than 50% stenosis of the internal carotid artery. Neck CTA 05/30/2019: IMPRESSION: 1. 75% stenosis of the left vertebral artery at the level of C3. Otherwise no of dissection, focal vessel occlusion, or significant stenosis of the cervical arteries.
--- NOTE | 2021-08-09 13:40 | History & Physical Report ---
Date of Service August 09, 2021 Assessment & Plan (1) Instability of left hip joint: Plan: Approximately 20 minutes were spent reviewing operative procedure, postoperative recovery, physical therapy requirements and medication use. Postoperative prescriptions for oral narcotic and Coumadin will be provided at discharge from the hospital. Anticipate discharge to home with home health services. Informed written consent will be obtained the morning of surgery. Postop followup appointment has already been made for 09/01/2021. PDMP was checked and there are no concerning findings. The patient has already gone to [facility] today for her preadmission lab work, EKG, and chest x-ray. She will need medical clearance from both her american sign language interpreter as well as PCP. The patient is aware. She is aware of the COVID-19 risks associated with surgery. She is currently asymptomatic of any COVID-19 symptoms. Prescription was provided to obtain nasal swab testing on 08/15. She is aware that surgery may be postponed due to lack of available beds in the hospital. History of Present Illness Chief Complaint: Left hip recurrent instability Primary Care Provider: Klaus Douglas MD This 86-year-old female presents with her , for her preoperative history and physical. She is scheduled to undergo a left hip conversion to a constrained liner on 08/17/2021. The patient has a history of previous left total hip arthroplasty done on 06/14/2016. She did well with it for a few months. She has since had 5 dislocations of the left hip. Several were postural indiscretions. Her last one was without warning. She has dislocated 06/25/2021, 04/29/2021, 05/16/2020, 02/2018, and 10/2016. She is now afraid to walk. She is using an abductor hip brace at all times. She states she is afraid that it is going to dislocate again and would like more assured stability. She denies any numbness or tingling. No other complaints at this point. Preoperative imaging has been obtained. Her fear is affecting her ADLs. She states the hip is just too unreliable. Allergies Allergy/AdvReac Type Severity Reaction Status Date / Time atenolol Allergy Intermediate RASH AND Verified 08/04/21 11:10 ITCHING-TAKES TOPROL-XL AT HOME Sulfa (Sulfonamide Allergy Mild "SULFA Verified 08/04/21 11:10 Antibiotics) DRUGS": UNKNOWN lisinopril AdvReac Intermediate COUGH Verified 08/04/21 11:10 Home Medications Medication Instructions Recorded Confirmed Type amlodipine 10 mg tablet 5 mg PO QAM 12/31/18 08/04/21 History meclizine 25 mg chewable tablet 25 mg PO TID PRN 12/31/18 08/04/21 History isosorbide dinitrate 20 mg tablet 20 mg PO TID 05/29/19 08/04/21 History lorazepam 0.5 mg tablet 0.5 - 1 mg PO TID PRN 05/29/19 08/04/21 History metoprolol succinate 25 mg 12.5 mg PO QAM 05/29/19 08/04/21 History tablet,extended release 24 hr simvastatin 20 mg tablet 20 mg PO HS 05/29/19 08/04/21 History vit C 250 mg-vit E 90 mg-zinc 40 1 tab PO BID 05/29/19 08/04/21 History mg-copper 1 [id number] capsule (PreserVision AREDS-2) ipratropium 20 mcg-albuterol 100 2 puff INHALATION QID #12 g 05/03/20 08/04/21 Rx mcg/actuation mist for inhalation (Combivent Respimat) amoxicillin 500 mg capsule 2,000 mg PO DIRECTED PRN 05/16/20 08/04/21 History ondansetron 4 mg disintegrating 4 - 8 mg PO Q8H PRN 05/16/20 08/04/21 History tablet aspirin 81 mg chewable tablet 81 mg PO QAM #90 tab 11/18/20 08/04/21 Rx albuterol sulfate 90 mcg/actuation 1 inh INHALATION QID PRN #18 g 03/02/21 08/04/21 Rx aerosol inhaler (Ventolin HFA) umeclidinium 62.5 mcg-vilanterol 1 inh INHALATION QAM 06/22/21 08/04/21 History 25 mcg/actuation powdr for inhalation (Anoro Ellipta) fluticasone fur. 100 mcg-umeclid 1 inh INHALATION DAILY #60 ea 07/08/21 08/04/21 Rx 62.5 mcg-vilant 25 mcg inhalat.powder (Trelegy Ellipta) cholecalciferol (vitamin D3) 25 25 mcg PO QAM 08/04/21 08/04/21 History mcg (1,000 unit) tablet (Vitamin D3) docusate sodium 100 mg capsule 100 mg PO QAM 08/04/21 08/04/21 History (Colace) mirtazapine 15 mg disintegrating 15 mg PO HS 08/04/21 08/04/21 History tablet oxycodone 5 mg tablet 5 mg PO Q8H PRN 08/04/21 08/04/21 History polyethylene glycol 3350 17 gram 17 g PO DAILY PRN 08/04/21 08/04/21 History oral powder packet (Miralax) Past Med/Surg History Medical History Carotid stenosis 50-69% TONNY 03/12/2019 duplex per [facility] cardio CKD (chronic kidney disease), stage III COPD (chronic obstructive pulmonary disease) follows [facility], on Trelegy Coronary artery disease "diffuse minor CAD by cardiac catheterization 01/27/2019" per [facility] cardio note 06/29/2021 Dyslipidemia Dyspnea GERD (gastroesophageal reflux disease) controlled, stable per pt Hip dislocation, left currently in a brace HTN (hypertension) controlled, stable per pt Left bundle branch block chronic per [facility] cardio note-noted post TAVR 05/27/2019 per [facility] cardio note Macular degeneration Multiple pulmonary nodules determined by computed tomography of lung no further imaging needed given stability from 2019 per [facility] note 07/08/2021 Osteoporosis Transient ischemic attack (TIA) possible per cardio note, 02/26/2021-negative CT and MRI imaging-on ASA per cardio with Plavix d/c due to subdural hematoma that subsequently resolved (cleared by neurosurgery [facility]) Traumatic subarachnoid hemorrhage Vertebral artery stenosis 75% stenosis of left vertebral artery per 05/30/2019 neck CTA Vertigo Surgical History Fusion of spine H/O hernia repair RT INGUINAL HERNIA History of cardiac catheterization 05/15/2019 TAVR. 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 Bearden at [facility], 02/26/2021-normal gradient S/P tonsillectomy and adenoidectomy Status post total hip replacement, right Family History Other No family history of adverse response to anesthesia Stroke Social History Smoking Status: Former smoker Second Hand Exposure: Yes (SON SMOKES); Hx Alcohol Use: No Hx Substance Use: No Preferred Language: Mozambican Communication Ability: Effective Forest Fire Fighter Required: No Beliefs That Will Affect Care: None marital status: Current Living Situation: Spouse Feels Safe at Home: Yes Assistive Devices: Brace/Splint/Immobilizer, Cane, Glasses and Walker Review of Systems Review of Systems: All systems reviewed & are unremarkable except as noted in HPI & below A total of 10 systems were reviewed. Physical Exam Physical Exam: Vitals: Height 156.5 cm, weight 73.1 kilograms, BMI 29.9, temperature 36.2, BP 156/80, pulse 92, O2 sat 95% on room air. General: Well-developed, well-nourished, elderly white female in no acute distress. Sitting in a chair. Alert and oriented. Conversive. Skin: Warm and dry with fair turgor. No rashes or lesions. No ecchymosis or erythema. HEENT: Normocephalic, atraumatic. Eyes: PERRLA, EOMI. Nares and oropharynx exams deferred due to COVID precautions. Heart: RRR, 3/6 systolic ejection murmur noted. No gallops or rubs. Lungs: Clear to auscultation bilaterally. No crackles, rhonchi or wheezing. Good air movement. Abdomen: Obese, bowel sounds present x4, soft, nontender. No organomegaly. No masses. Musculoskeletal: Left hip has no obvious asymmetry or deformity. She does have her hip brace in place. She continues to have soreness with palpation over the gluteus and SI joint. No pain with palpation over her lateral hip. Supple motion for her hip for both flexion as well as internal/external rotation passively. Intact motor function of her knee, and ankle. She is ambulating today using her walker. She is walking fairly well. Neurologic: Gross sensation is intact across both lower extremities by soft touch. Peripheral pulses are 2+. Results & Data Results & Data ([facility]) Diagnostic Findings Radiographic imaging previously obtained shows a well-seated implant. Good positioning of the cup. Back fusion is evident on her films. Code Status & VTE Plan VTE Prophylaxis Plan VTE Prophylaxis will be ordered: Yes
[~2021-08-17 06:26] MED LIST changes: -ADVIN10/60 INH; -AMLO-114 PO; -AMOX500C3 PO; -ASPI81TA28 PO; -ATV5X PO; -AZITTAB PO; -BUPR-79 PO; -ERGO500037 PO; -HYDR-5688 PO; -IBAN150T PO; +LR 500ML BOLUS, THEN 15ML/HR IV SCH; +LR 60ML/HR IV SCH; -MECL1TAB42 PO; -MULT60CA PO; -ONDA4TAB46 PO; -PRLSR20 PO; +ROPIVACAINE 0.5% HCL/PF 150 MG, BUPIVACAINE 0.75% MPF 20 ML, EPINEPHrine 0.15 MG, Ketor... INFIL SCH; -SIMV20TA2 PO; +TRANEXAMIC ACID 1,000 MG **IV Pre-op IV SCH; +TRANEXAMIC ACID 1,000 MG x 1 **For Topical Use TOP SCH; -VLTG TOP; -VNTHFA/IN INH; -ZOLP10TA PO; +ceFAZolin 2000MG 2,000 MG/15 ML SYR IV SCH
--- NOTE | 2021-08-17 06:44 | History & Physical Bridge Note ---
Date of Service August 17, 2021 History & Physical Bridge Note I have examined the patient, reviewed the History & Physical and in the interval since the performance of the History & Physical I have noted the following changes of clinical significance: consent obtained/site verified/covid screen negative.no changes noted
[2021-08-17] MEDS ORDERED: MIDAZOLAM HCL 1 MG/ML 2ML VIAL ONE (07:13)
[2021-08-17] MEDS ORDERED: BUPIVACAINE 0.5 % 5 MG/1 ML PF 10ML VIAL ONE (07:45)
[2021-08-17] MEDS ORDERED: fentaNYL citrate 100 MCG/2 ML VIAL IV PRN (08:41)
[2021-08-17] MEDS ORDERED: ATROPINE SULFATE 0.1 MG/ML 10ML SYR IV PRN (08:41)
[2021-08-17] MEDS ORDERED: ePHEDrine sulfate 50 MG/ML AMP IV PRN (08:41)
[2021-08-17] MEDS ORDERED: ORTHO JOINT ANESTHETIC ONE (08:43)
[2021-08-17] MEDS ORDERED: PROPOFOL IV EMULSION 10 MG/ML 20 ML VIAL IV ONE ×2 (09:16→09:53)
[2021-08-17] MEDS ORDERED: PHENYLEPHRINE 100MCG/ML 5ML SYR ONE (09:52)
--- NOTE | 2021-08-17 10:29 | Post Operative Brief Note ---
Immediate Post Op Note v1 Date of Surgery August 17, 2021 Pre & Post Diagnosis Operation Date: 08/17/21 08:50 Pre-Op Diagnosis: Recurrent Instability Left Hip Post-Op Diagnosis: Recurrent Instability Left Hip I identified the patient and participated in the time-out.: Yes Procedure Operation Date: 08/17/21 08:50 Actual Procedures p Left Total Hip Arthroplasty Conversion to Constrained Liner(Left) - Darius Matson MD Surgeon Darius Matson MD Planning Analyst [facility] Blood Loss 25 Findings Consistent with Post-Op Diagnosis
--- NOTE | 2021-08-17 10:37 | Operative Report ---
Post Operative Report Pre & Post Diagnosis Operation Date: 08/17/21 08:50 Pre-Op Diagnosis: Recurrent Instability Left Hip Post-Op Diagnosis: Recurrent Instability Left Hip I identified the patient and participated in the time-out.: Yes Procedure Operation Date: 08/17/21 08:50 Actual Procedures p Left Total Hip Arthroplasty Conversion to Constrained Liner(Left) - Darius Matson MD Surgeon JUN Matson MD Bowling Alley Mechanic Mian LOYOLA Estimated Blood Loss 25 Findings Consistent with Post-Op Diagnosis see operative report Specimens see operative report Drains none Complications none Disposition Accompanied Patient To Recovery: Yes Indications This 86-year-old female presented to the office with complaints of recurrent left total hip arthroplasty dislocation. She has had 5 separate prosthesis dislocations since initial placement. She had tried conservative care measures including bracing without improvement. She elected to proceed with surgical intervention after being educated about potential risks and outcomes. Preoperative imaging was obtained. Description of Procedure Patient was administered a spinal anesthetic and then taken to the operating room where she was given sedation. She was prepped and draped in usual sterile fashion. Please see Dr. Matson's operative report for specifics of the procedure. I was present for the entire case from initial patient positioning through final wound closure. Assistance was provided in tissue retraction, hemostasis, implant exchange, and final wound closure. Patient was taken to the recovery room in satisfactory condition. I attest to the content of the Intraoperative Record and any orders documented therein. Any exceptions are noted below.
--- NOTE | 2021-08-17 10:59 | Operative Report (OR) ---
DATE OF PROCEDURE: 08/17/2021 SURGEON: Darius Matson MD. DIRECTOR OF BUSINESS DEVELOPMENT: Goran Pappas PA-C. No resident or fellow available. 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 OPERATION PERFORMED: Conversion of left total hip unconstrained system to a constrained system DePuy. PERIOPERATIVE SITUATION: Medically cleared female with intractable recurrent instability of her left hip. Every time she bends a certain way, she has it dislocate, particularly crossing her legs over the midline and bending down to tie her shoes or to put her socks on. She had a lumbar spinal fusion since her hip replacement, which has led to her problems. At this point in time, options were discussed with her concerning replacing this either to a dual mobility or to a constrained liner. Based on her age, low- demand and her cognitive changes, I suggested that we stick with the constrained liner. She and her agreed. DESCRIPTION OF PROCEDURE: The patient was appropriately identified, site verified, consent verified. Antibiotics were confirmed as being given. The left lower extremity was prepped and draped in the usual routine fashion with the patient in right lateral decubitus position. The hip was basically stable under anesthesia. Once this was all taken care of, the old incision was opened and full thickness flaps raised. The IT band was then incised and raised. Care was taken to protect the sciatic nerve. Retractor was placed. Capsule was then excised. There was a relatively large pocket of soft tissue expansion from recurrent instability. There was no sign of any purulence. No cultures were obtained. Once all of the capsule was removed around the cup and the cup liner could be seen well, the hip was dislocated. The head was removed. The femur was then placed anteriorly. Excellent exposure was obtained. The liner was then removed without difficulty. All of the debris in the locking rings was then removed and then the appropriate constrained liner was popped into position. Once this was done, the 28 liner and the constraining ring were placed on the femoral head. The head was then reduced with appropriate constraining pop. Once that was placed, the locking ring liner was placed. That moved well. That was verified and it was good by multiple people. Once that was done, the wound was then irrigated and then closed in layers using #2 Vicryl for the fascial layer and the deep fat layer, 2-0 Vicryl for the superficial fat layer and the subcutaneous tissue and stainless steel clips for skin. Appropriate dressing applied. The patient was transferred to recovery room in satisfactory condition, having tolerated the procedure well. The implants were not sent to pathology and when discussed with the patient preop, she did not want them. ESTIMATED BLOOD LOSS: Roughly 25 mL. CRYSTALLOID: Per anesthesia. No pathology pending. DVT prophylaxis per protocol. SUMMARY OF IMPLANTS: 20 x 50+4 neutral constrained liner, 28+1.5 ceramic head. Job ID: [id number] [facility]
[2021-08-17] MEDS ORDERED: VANCOMYCIN HCL 1,000 MG in SODIUM CHLORIDE 0.9% 250 ML IV ONE (11:00)
--- NOTE | 2021-08-17 11:18 | Progress Notes ---
DATE OF SERVICE: 08/17/2021 SUBJECTIVE: Status post conversion from unconstrained to constrained acetabular liner for recurrent instability secondary to postural indiscretion and lumbar spinal fusion. At this point, she is doing well. She is sitting up in bed. Denies chest pain, shortness of breath, fever, chills, nausea, vom iting, or headache. VITAL SIGNS: Stable. She is afebrile. Neurovascular check limited by spinal. Postop x-rays look excellent. Wound dressing clean, dry and intact. ASSESSMENT: Doing well. Continue with postoperative care pathway. Discharge home tomorrow if she d oes well overnight. Job ID: [id number]
--- NOTE | 2021-08-17 11:33 | Discharge Summary (DS) ---
DATE OF ADMISSION: 08/17/2021 DATE OF DISCHARGE: 08/18/2021 if does well overnight. CHIEF COMPLAINT: Left hip instability. HISTORY OF PRESENT ILLNESS: Underwent elective conversion of unconstrained to constrained hip replacement on the left secondary to multiple dislocations for postural indiscretion, poor judgment and lumbar spine fusion limiting mobility. All of her motion focuses to her hip and she now dislocates on the left. The right hip replacement is doing well. Prior to that, had no issues. She underwent a constrained liner with no issues. Postop x-rays look excellent. PAST MEDICAL HISTORY: Remarkable for carotid stenosis, chronic kidney disease stage III, COPD, coronary artery disease, dyslipidemia, dyspnea, GERD, hypertension, bundle branch block, macular degeneration, osteoporosis, pulmonary nodules that are being followed, TIA, traumatic subarachnoid hemorrhage, vertebral artery stenosis, vertigo, history of inguinal hernia repairs, cardiac cath, TAVR, cataract surgery, cholecystectomy, hysterectomy, tooth extraction, multiple joint replacements. SOCIAL HISTORY: Reveals that she does not presently smoke, but did smoke in the past. Gets some secondhand exposure from her son. She lives with her spouse, feels safe at home. REVIEW OF SYSTEMS: Reveals no chest pain, shortness of breath, fever, chills, nausea, vomiting or headache. MEDICATIONS: Medication list is quite extensive. ALLERGIES: INCLUDE ATENOLOL, SULFA, another dug she cannot recall. Med reconciliation sheet has multiple meds, please see that. ASSESSMENT: Doing well status post conversion. At this point in time, discharge to home if does well overnight, left side. Job ID: [id number] [facility]
[2021-08-17] MEDS ORDERED: ALUMINUM/MAGNESIUM SUSP 30 ML UDC PO PRN (11:41)
[2021-08-17] MEDS ORDERED: bisacodyL 10 MG SUPP PR PRN (11:41)
[2021-08-17] MEDS ORDERED: LORazepam 0.5 MG TAB PO PRN (11:41)
[2021-08-17] MEDS ORDERED: NALOXONE HCL 0.4 MG/1 ML VIAL/CARP IV PRN (11:41)
[2021-08-17] MEDS ORDERED: METOCLOPRAMIDE HCL INJ 5 MG/ML 2 ML VIAL IV PRN (11:41)
[2021-08-17] MEDS ORDERED: POLYETHYLENE (MIRALAX) 17 GM PACK PO PRN (11:41)
[2021-08-17] MEDS ORDERED: SODIUM CHLORIDE 0.9% 1000ML 1,000 ML IV SCH (11:41)
[2021-08-17] MEDS ORDERED: diphenhydrAMINE 50 MG/ML VIAL IV PRN (11:41)
[2021-08-17] MEDS ORDERED: ALBUTEROL HFA 8 GM INHALER INH PRN (11:41)
[2021-08-17] MEDS ORDERED: ONDANSETRON INJ 2 MG/ML 2 ML VIAL IV PRN (11:41)
[2021-08-17] MEDS ORDERED: MAGNESIUM HYDROXIDE SUSP 30 ML UDC PO PRN (11:41)
[2021-08-17] MEDS ORDERED: HYDROmorphone INJ 0.5 MG/0.5 ML SYR IV PRN (11:41)
--- NOTE | 2021-08-17 12:07 | Anesthesiology Progress Note ---
Date of Service August 17, 2021 Anesthesia Post Procedure Vital Signs Vital Signs: Temp Pulse Pulse Resp BP BP Pulse Ox 08/17/21 12:00 75 15 130/53 L 97 08/17/21 11:45 78 18 158/72 H 97 08/17/21 11:35 79 18 126/65 96 08/17/21 11:25 80 16 144/64 H 97 08/17/21 11:15 36.4 C L 85 19 130/81 96 08/17/21 11:05 84 18 106/83 94 08/17/21 10:55 84 19 109/64 90 08/17/21 10:45 85 25 H 91/42 L 93 08/17/21 10:35 36.4 C L 83 17 93/56 L 93 08/17/21 07:23 36.8 C 89 22 166/76 H 91 Transfer of Care Handoff Completed per policy Notes Mental Status: alert / awake / arousable and participated in evaluation Patient Amnestic to Procedure: Yes Nausea / Vomiting: adequately controlled Pain: adequately controlled Airway Patency, RR, SpO2: stable & adequate BP & HR: stable & adequate Hydration State: stable & adequate Neuraxial Anesthesia: was administered and sensory block is resolving Anesthetic Complications: no major complications apparent
[2021-08-17] MEDS ORDERED: MECLIZINE HCL 25 MG TAB PO PRN (12:10)
--- NOTE | 2021-08-17 12:31 | XRay Report ---
AP PELVIS History: Left total hip arthroplasty. Degenerative arthritis. Postop. FINDINGS: The patient is status post revision a left total hip arthroplasty. The hardware is intact. No fracture or dislocation. Skin naresh are in place. Evidence for prior right total arthroplasty. IMPRESSION: Left total hip arthroplasty revision. No evidence for hardware complication. ACT 112: Negative or not required by law. Electronically signed by: Kaiden Yung M.D. 08/17/2021 12:30 PM
[2021-08-17] MEDS ORDERED: IPRATROPIUM BROMIDE/ALBUTEROL respimat INH INH SCH (13:00)
[2021-08-17] MEDS ORDERED: ORTHO WARFARIN NOMOGRAM SCH (14:00)
[2021-08-17] MEDS: ACETAMINOPHEN 500 MG TAB PO SCH ×2 (15:43→22:10)
[2021-08-17] MEDS: ISOSORBIDE DINITRATE 20 MG TAB PO SCH ×2 (15:43→18:56)
[2021-08-17] MEDS: ceFAZolin 2000MG 2,000 MG/15 ML SYR IV SCH (15:46)
[2021-08-17] MEDS: Albuterol HFA 8 GM Inhaler (Combivent Respimat P&T Subs) INH SCH ×2 (17:23→20:36)
[2021-08-17] MEDS ORDERED: WARFARIN SOD 5 MG TAB PO ONE (18:00)
[2021-08-17] MEDS: Ipratropium HFA Inhaler (Combivent Respimat P&T Subs) INH SCH ×2 (18:50→20:35)
[2021-08-17] MEDS: ASCORBIC ACID 500 MG TAB PO SCH (18:56)
[2021-08-17] MEDS: FERROUS GLUCONATE 324 MG TAB PO SCH (18:56)
[2021-08-17] MEDS: oxyCODONE HCL IR 5 MG TAB (IMMEDIATE RELEASE) PO PRN (20:41)
[2021-08-17] MEDS: CEROVITE ADV FORMULA TAB PO SCH (20:42)
[2021-08-17] MEDS: DOCUSATE SODIUM 100 MG CAP PO SCH (20:42)
[2021-08-17] MEDS ORDERED: SIMVASTATIN 20 MG TAB PO SCH (21:00)
[2021-08-17] MEDS ORDERED: MIRTAZAPINE SOLTAB 15 MG PO SCH (21:00)
[2021-08-17] MEDS ORDERED: SENNA 8.6 MG TAB PO SCH (21:00)
[2021-08-18] MEDS: ceFAZolin 2000MG 2,000 MG/15 ML SYR IV SCH (00:08)
[2021-08-18] MEDS: ACETAMINOPHEN 500 MG TAB PO SCH (05:53)
[2021-08-18] MEDS: Albuterol HFA 8 GM Inhaler (Combivent Respimat P&T Subs) INH SCH ×2 (05:56→10:36)
[2021-08-18] MEDS: Ipratropium HFA Inhaler (Combivent Respimat P&T Subs) INH SCH ×2 (05:56→10:36)
[2021-08-18 06:16] LABS: Basophils # (auto) 0.02 K/uL (0-0.2); Basophils % (auto) 0.2 %; Eosinophils # (auto) 0.02 K/uL (0-0.5); Eosinophils % (auto) 0.2 %; Hematocrit (blood only) 38.3 % (37-47); Hemoglobin 11.7 g/dL (12.0-16.0); Immature Granulocytes # (auto) 0.01 K/uL (0.00-0.02); Immature Granulocytes % (auto) 0.1 %; Lymphocytes # (auto) 0.33 K/uL (1.2-3.4); Lymphocytes % (auto) 3.8 %; Mean Corpuscular Hemoglobin 29.6 pg (25-34); Mean Corpuscular Hgb Conc 30.5 g/dL (32-36); Mean Platelet Volume 10.8 fL (7.4-10.4); Monocytes % (auto) 6.9 %; Neutrophils # (auto) 7.67 K/uL (1.4-6.5); Neutrophils % (auto) 88.8 %; Platelet Count 155 K/uL (130-400); RDW Coefficient of Variation 13.9 % (11.5-14.5); RDW Standard Deviation 49.5 fL (36.4-46.3); Red Blood Count 3.95 M/uL (4.2-5.4); White Blood Count 8.65 K/uL (4.8-10.8)
[2021-08-18 06:17] LABS: INR 1.1 (0.9-1.1); Prothrombin Time 11.3 Seconds (9.0-12.0)
[2021-08-18 06:38] LABS: Calcium 8.8 mg/dl (8.5-10.1); Creatinine Clr Calc Pharmacy 36.2 ml/min; Est GFR (African American) 56.1 ml/min; Est GFR (Non-African American) 48.4 ml/min; Potassium 4.4 mmol/L (3.5-5.1)
[2021-08-18] MEDS ORDERED: dexAMETHasone 10 MG in SYRINGE 0 ML IV SCH (08:00)
[2021-08-18] MEDS: oxyCODONE HCL IR 5 MG TAB (IMMEDIATE RELEASE) PO PRN ×2 (08:02→12:10)
[2021-08-18] MEDS ORDERED: Nursing to Pharmacy Communication SCH (08:45)
[2021-08-18] MEDS ORDERED: MULTIVITAMIN TAB PO SCH (09:00)
[2021-08-18] MEDS ORDERED: METOPROLOL SUCC 25MG EXT REL TAB PO SCH (09:00)
[2021-08-18] MEDS ORDERED: ASPIRIN 81 MG ECTAB PO SCH (09:00)
[2021-08-18] MEDS ORDERED: WARFARIN SOD 5 MG TAB PO ONE (09:00)
[2021-08-18] MEDS ORDERED: FLUTICASONE FUROATE 100MCG 14 PUFFS/INHALER INH SCH (09:00)
[2021-08-18] MEDS ORDERED: UMECLIDINIUM/VILANTEROL 62.5/25MCG 7 PUFFS/INHALER INH SCH ×2 (09:00)
[2021-08-18] MEDS ORDERED: amLODIPine BESYLATE 5 MG TAB PO SCH (09:00)
--- NOTE | 2021-08-18 09:15 | Orthopedic Progress Note ---
Date of Service August 18, 2021 Assessment & Plan (1) Status post total hip replacement, left: Plan: Patient's dressing was changed today by me. Written discharge instructions were provided. Discharge to home after PT/OT. Continue wearing the LEONEL stockings. Prescriptions for oxycodone and Coumadin were sent into her pharmacy. Follow-up in the office in 2 weeks as scheduled for staple removal. Home health services will see her this weekend. She will have his blood drawn on Sunday to check her INR. Dressings may be changed on Sunday if they are soiled. Call the office with any other concerns. Admission and Anticipated Discharge Date Admission Date: August 17, 2021 Subjective Patient is seen in her room this morning. She states she did well overnight. She has already been out of bed and has been ambulating with her walker. She denies any chest pain, shortness of breath, or abdominal pain. No nausea or vomiting. She feels like she is ready for discharge to home. She states her anxiety about dislocating is much less than prior to surgery. She has minimal hip pain at this point. Review of Systems Review of Systems: Unchanged from yesterday. Physical Exam Physical Exam: General: Well-developed, well-nourished, elderly female, in no acute distress. Sitting in a chair. She rises easily from a chair. Conversive. Good spirits. Skin: Warm and dry with fair turgor. No rashes. Patient has an intact postsurgical dressing. Upon removal, her surgical incision is closed. She has scant dried drainage on her inner dressings. There is no active bleeding. Expected postoperative edema. No ecchymosis or erythema. Musculoskeletal: Patient has supple motion of her left hip. She ambulates well, with no appreciable limp using her walker. No discomfort with passive or active hip flexion, or internal/external rotation. Neurologic: Gross sensation is intact across left leg by soft touch. Results & Data ([facility]) Vital Signs (Past 12 Hours) Vital Signs Temp Pulse Resp BP Pulse Ox 08/18/21 08:29 36.8 C 82 18 94 08/18/21 06:30 36.5 C 73 18 159/79 H 97 Laboratory Results H&H obtained today are 11 .7 and 38.3. INR is 1.1. PRP is unremarkable. Glucose was 135.
[2021-08-18] MEDS: ISOSORBIDE DINITRATE 20 MG TAB PO SCH (09:29)
[2021-08-18] MEDS: CEROVITE ADV FORMULA TAB PO SCH (09:30)
[2021-08-18] MEDS: FERROUS GLUCONATE 324 MG TAB PO SCH (09:30)
[2021-08-18] MEDS: ASCORBIC ACID 500 MG TAB PO SCH (09:30)
[2021-08-18] MEDS: DOCUSATE SODIUM 100 MG CAP PO SCH (09:30)
== END 2021-08-18 12:45 | disposition home or self-care (01) ==
LOC: ASU 06:26 → ASUINP 06:26

== ENCOUNTER 2021-10-29 19:57 | Inpatient (IN) ==
--- NOTE | 2021-10-29 20:10 | Emergency Department Note ---
Impression & Plan Abdominal pain, S/P TAVR (transcatheter aortic valve replacement), Pulmonary edema, Hypoxia ED Provider Note Provider: Joe Rice MD DATE OF SERVICE: 10/29/2021 CHIEF COMPLAINT: Nausea, chills HISTORY OF PRESENT ILLNESS: Patient is a 86-year-old female with a past medical history of COPD, TAVR, CKD, and a right hip replacement presenting today from home via ambulance. Patient states just after 5:00 this evening began to experience some unsettled this some nausea. Patient states she has some tenderness of the upper abdomen. Patient denies chest pain reports some generalized weakness. Denies any falls. Patient denies fever but reports some chills. States she has had a few hot flashes. Patient denies any diarrhea. Patient denies a history of similar recent sick contact. Patient states her right hip is healing well after replacement 6 weeks ago approximately. EMS noted her to be hypoxic. She does not use oxygen at home but denies any significant chest pain. Received some Zofran prior to arrival with minimal improvement of nausea. Patient reports she was previously on a brief course of Coumadin after hip surgery but there is no longer on this. REVIEW OF SYSTEMS: A total of 10 review of systems was obtained and negative except as stated above in the HPI. PAST MEDICAL HISTORY: As noted above MEDICATIONS: Reviewed home medication list SOCIAL HISTORY: Former smoker, lives at home PHYSICAL EXAM: GENERAL: alert and oriented in no acute distress on stretcher Head: normocephalic and atraumatic EYES: No injection, discharge or icterus. NECK: Trachea midline. ENT: Mucous membranes pink and moist. LUNGS: Airway patent. No retractions. Breath sounds without significant wheezes but some crackles in the bases. HEART: Regular rate and rhythm. No chest wall tenderness ABDOMEN: Soft no lower abdominal tenderness but with some tenderness in the epigastric to left upper quadrant. SKIN: Acyanotic, warm, dry, without rashes EXTREMITIES: Trace pedal edema. No significant leg tenderness appreciated otherwise. NEUROLOGICAL: No focal deficits. No aphasia. No facial droop or slurred speech. EK bpm normal sinus rhythm. No PVC or PAC. Left bundle branch block is present without significant acute ST segment elevation. QTc 474. In comparison to previous available from April 302020 similar. CONTINUOUS CARDIAC MONITORING: was ordered and showed a heart rate of 80s-100s bpm in normal sinus rhythm to sinus tachycardia Patient's laboratory studies and imaging reviewed. Differential includes Infection, gastrointestinal, dehydration, metabolic abnormality, hypo/hyperglycemia, electrolyte disturbance, anemia, hypoxia, cardiac sources, intracerebral event, toxicologic, neurologic, as well as other pathologies. IMPRESSION/MEDICAL DECISION MAKING: Patient presents with some hot flashes and chills evening with upper abdominal tenderness and some nausea. Noted to incidentally be hypoxic for EMS. History of COPD. Given DuoNeb but does not sound specifically wheezy. Covid test and basic labs ordered. CT of the abdomen pelvis was ordered. Given some hypoxia and recent hip surgery will hope for a CT of the chest to look for PE if her renal function allows. Blood work without any significant anemia or leukocytosis. Procalcitonin undetectably low. Urinalysis not impressive. Troponin undetectably low. No significant renal dysfunction or evidence of electrolyte abnormality noted. No evidence of LFT abnormalities. Negative COVID test. Thyroid function within normal limits. Lipase not elevated. No nausea at this time. Chest x-ray shows some concerning findings for pulmonary edema. CT Chest as well as CT abdomen pelvis per radiology report without evidence of PE with moderate additional edema and small and trace pleural effusions. No pneumonia noted. CT the abdomen without evidence of obstruction or hydronephrosis. A ventral hernia is noted. No evidence of free fluid. Updated the patient and she still darek nues to desaturate on room air into the high 80s 88% to 86%. Again does not sound that wheeze believe is more fluid overload given the work-up. Given a dose of Lasix. States she has been on Lasix in the distant past. Question of prior TAVR improved her situation now she may be accumulating little bit of fluid. Still with some pain in the left upper quadrant. Abdominal CT is not that remarkable. We will try some Pepcid and GI cocktail to see if this may improve this. Again less likely believe this is acute ACS at this time and initial EKG and troponin are reassuring. Given the need for oxygen discussed with her further care and observation here at the hospital. She was in agreement. Hospitalist contacted. Attempted to contact her via phone but he did not answer the phone. DIAGNOSIS: Epigastric to left upper quadrant abdominal pain, hypoxia, fluid overload/pulmonary edema DISPOSITION: Hospitalist will evaluate Patient was agreeable with this plan. Past Med/Surg History Medical History Carotid stenosis 50-69% TONNY 03/12/2019 duplex per [facility] cardio CKD (chronic kidney disease), stage III COPD (chronic obstructive pulmonary disease) follows with [facility], on Trelegy Coronary artery disease "diffuse minor CAD by cardiac catheterization 01/27/2019" per [facility] cardio note 06/29/2021 Dyslipidemia Dyspnea GERD (gastroesophageal reflux disease) controlled, stable per pt Hip dislocation, left currently in a brace HTN (hypertension) controlled, stable per pt Left bundle branch block chronic per [facility] cardio note-noted post TAVR 05/27/2019 per [facility] cardio note Macular degeneration Multiple pulmonary nodules determined by computed tomography of lung no further imaging needed given stability from 2019 per [facility] pulm note 07/08/2021 Osteoporosis Transient ischemic attack (TIA) possible per cardio note, 02/26/2021-negative CT and MRI imaging-on ASA per cardio with Plavix d/c due to subdural hematoma that subsequently resolved (cleared by neurosurgery [facility]) Traumatic subarachnoid hemorrhage Vertebral artery stenosis 75% stenosis of left vertebral artery per 05/30/2019 neck CTA Vertigo Surgical History Fusion of spine H/O hernia repair RT INGUINAL HERNIA History of cardiac catheterization 05/15/2019 TAVR. 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 Bearden at [facility], 02/26/2021-normal gradient S/P tonsillectomy and adenoidectomy Status post total hip replacement, right Family History Other No family history of adverse response to anesthesia Stroke Social History Smoking Status: Never smoker Second Hand Exposure: Yes ([employer]MOKES); Hx Alcohol Use: No Hx Substance Use: No Preferred Language: Singaporean Communication Ability: Effective [employer] Worker Required: No Beliefs That Will Affect Care: None marital status: Current Living Situation: Spouse Feels Safe at Home: Yes Assistive Devices: Cane and Walker Allergies Allergies Allergy/AdvReac Type Severity Reaction Status Date / Time atenolol Allergy Intermediate RASH AND Verified 08/17/21 06:52 ITCHING-TAKES TOPROL-XL AT HOME Sulfa (Sulfonamide Allergy Mild "SULFA Verified 08/17/21 06:52 Antibiotics) DRUGS": UNKNOWN lisinopril AdvReac Intermediate COUGH Verified 08/17/21 06:52 Home Meds Home Medications Medication Instructions Recorded Confirmed amlodipine 10 mg tablet 5 mg PO QAM 12/31/18 08/17/21 meclizine 25 mg chewable tablet 25 mg PO TID PRN 12/31/18 08/17/21 isosorbide dinitrate 20 mg tablet 20 mg PO TID 05/29/19 08/17/21 lorazepam 0.5 mg tablet 0.5 - 1 mg PO TID PRN 05/29/19 08/17/21 metoprolol succinate 25 mg 12.5 mg PO QAM 05/29/19 08/17/21 tablet,extended release 24 hr simvastatin 20 mg tablet 20 mg PO HS 05/29/19 08/17/21 vit C 250 mg-vit E 90 mg-zinc 40 1 tab PO BID 05/29/19 08/17/21 mg-copper 1 oh-hzpxrc-smeswn capsule (PreserVision AREDS-2) amoxicillin 500 mg capsule 2,000 mg PO DIRECTED PRN 05/16/20 08/17/21 ondansetron 4 mg disintegrating 4 - 8 mg PO Q8H PRN 05/16/20 08/17/21 tablet umeclidinium 62.5 mcg-vilanterol 1 inh INHALATION QAM 06/22/21 08/17/21 25 mcg/actuation powdr for inhalation (Anoro Ellipta) cholecalciferol (vitamin D3) 25 25 mcg PO QAM 08/04/21 08/17/21 mcg (1,000 unit) tablet (Vitamin D3) docusate sodium 100 mg capsule 100 mg PO QAM 08/04/21 08/17/21 (Colace) mirtazapine 15 mg disintegrating 15 mg PO HS 08/04/21 08/17/21 tablet oxycodone 5 mg tablet 5 mg PO Q8H PRN 08/04/21 08/17/21 polyethylene glycol 3350 17 gram 17 g PO DAILY PRN 08/04/21 08/17/21 oral powder packet (Miralax) Previous Rx's Medication Instructions Recorded aspirin 81 mg chewable tablet 81 mg PO QAM #90 tab 11/18/20 albuterol sulfate 90 mcg/actuation 1 inh INHALATION QID PRN #18 g 03/02/21 aerosol inhaler (Ventolin HFA) fluticasone fur. 100 mcg-umeclid 1 inh INHALATION DAILY #60 ea 07/08/21 62.5 mcg-vilant 25 mcg inhalat.powder (Trelegy Ellipta) oxycodone 5 mg capsule 5 mg PO Q6H PRN #12 cap 08/18/21 warfarin 2 mg tablet 4 mg PO DAILY #60 tab 08/18/21 ipratropium 20 mcg-albuterol 100 2 puff INHALATION QID #12 g 10/11/21 mcg/actuation mist for inhalation (Combivent Respimat) Results & Data (ED) Vital Signs Vital Signs - 24 hr 10/29/21 20:13 10/29/21 20:17 10/29/21 20:18 Temperature 36.8 C Temperature Source Oral Pulse Rate 85 Pulse Rate [Left Apical] Pulse Rhythm Regular Pulse Rhythm [Left Apical] Pulse Strength Normal Pulse Strength [Left Apical] Respiratory Rate 20 Respiratory Effort / Characteristics Non-Labored Respiratory Depth Normal Blood Pressure 184/87 H Blood Pressure [Left Arm] Blood Pressure Mean 119 Blood Pressure Mean [Left Arm] Pulse Oximetry 87 L 97 87 L Oxygen Delivery Method Room Air Nasal Cannula Room Air Oxygen Flow Rate 2 Sepsis Recent Fever Within 48 Hours No Sepsis New/Unexplained Change in Mental Status No Sepsis Action Taken by Nursing No Action Required Oxygen Flow Rate - Titration 2 Pulse Oximetry Post Tiitration 97 10/29/21 20:53 10/29/21 22:00 Temperature Temperature Source Pulse Rate Pulse Rate [Left Apical] 83 93 H Pulse Rhythm Pulse Rhythm [Left Apical] Regular Pulse Strength Pulse Strength [Left Apical] Normal Respiratory Rate 20 20 Respiratory Effort / Characteristics Non-Labored Non-Labored Respiratory Depth Normal Normal Blood Pressure Blood Pressure [Left Arm] 172/89 H 149/81 H Blood Pressure Mean Blood Pressure Mean [Left Arm] 116 103 Pulse Oximetry 99 98 Oxygen Delivery Method Room Air Nasal Cannula Oxygen Flow Rate 2 Sepsis Recent Fever Within 48 Hours Sepsis New/Unexplained Change in Mental Status Sepsis Action Taken by Nursing Oxygen Flow Rate - Titration Pulse Oximetry Post Tiitration Laboratory Data Result diagrams: 10/29/21 20:10 10/29/21 20:10 Lab Results 10/29/21 10/29/21 10/29/21 Range/Units 20:10 20:10 20:10 WBC (4.8-10.8) K/uL RBC (4.2-5.4) M/uL Hgb (12.0-16.0) g/dL Hct (37-47) % MCV (80-100) fL MCH (25-34) pg MCHC (32-36) g/dL RDW Std Deviation (36.4-46.3) fL RDW Coeff of Anson (11.5-14.5) % Plt Count (130-400) K/uL MPV (7.4-10.4) fL Immature Gran % (Auto) % Neut % (Auto) % Lymph % (Auto) % Ellis % (Auto) % Eos % (Auto) % Baso % (Auto) % Neut # (Auto) (1.4-6.5) K/uL Lymph # (Auto) (1.2-3.4) K/uL Ellis # (Auto) (0.11-0.59) K/uL Eos # (Auto) (0-0.5) K/uL Baso # (Auto) (0-0.2) K/uL Immature Gran # (Auto) (0.00-0.02) K/uL PT 10.3 (9.0-12.0) Seconds INR 1.0 (0.9-1.1) Sodium 140 (136-145) mmol/L Potassium 4.3 (3.5-5.1) mmol/L Chloride 106 (98-107) mmol/L Carbon Dioxide 28 (21-32) mmol/L Anion Gap 6 (3-11) BUN 21 (6-23) mg/dl Creatinine 1.03 (0.6-1.2) mg/dl Est Cr Clr Drug Dosing 37.9 ml/min Est GFR ( Amer) 57.4 ml/min Est GFR (Non-Af Amer) 49.5 ml/min BUN/Creatinine Ratio 20.4 H (10-20) Glucose 175 H (70-99(Fasting)) mg/dl Calcium 8.8 (8.5-10.1) mg/dl Magnesium 2.1 (1.7-2.4) mg/dl Total Bilirubin 0.4 (0.2-1.0) mg/dl AST 14 (13-39) U/L ALT 8 (7-52) U/L Alkaline Phosphatase 79 (34-104) U/L Troponin I < 0.03 (0-0.04) ng/ml Total Protein 6.3 (6.0-8.3) gm/dl Albumin 3.9 (3.4-5.0) gm/dl Globulin 2.4 L (2.5-4.0) gm/dl Albumin/Globulin Ratio 1.6 (0.9-2) Lipase (11-82) U/L Procalcitonin < 0.05 (0-0.5) ng/ml TSH (0.300-4.500) uIu/ml Urine Color Urine Appearance (Clear) Urine pH (4.5-7.5) Ur Specific Mobile (1.000-1.030) Urine Protein (Negative) Urine Glucose (UA) (Negative) Urine Ketones (Negative) Urine Blood (Negative) Urine Nitrite (Negative) Urine Bilirubin (Negative) Urine Urobilinogen (Negative) Ur Leukocyte Esterase (Negative) Urine WBC (Auto) (0-5) /hpf Urine RBC (Auto) (0-4) /hpf U Hyaline Cast (Auto) (0-5) /lpf U Epithel Cells (Auto) (0-5) /lpf Urine Bacteria (Auto) (Negative) SARS-CoV-2, RNA, NAAT (NEGATIVE) 10/29/21 10/29/21 10/29/21 Range/Units 20:10 20:10 20:10 WBC 5.98 (4.8-10.8) K/uL RBC 4.44 (4.2-5.4) M/uL Hgb 13.2 (12.0-16.0) g/dL Hct 43.0 (37-47) % MCV 96.8 (80-100) fL MCH 29.7 (25-34) pg MCHC 30.7 L (32-36) g/dL RDW Std Deviation 52.6 H (36.4-46.3) fL RDW Coeff of Anson 14.8 H (11.5-14.5) % Plt Count 194 (130-400) K/uL MPV 10.7 H (7.4-10.4) fL Immature Gran % (Auto) 0.2 % Neut % (Auto) 68.7 % Lymph % (Auto) 16.2 % Ellis % (Auto) 10.5 % Eos % (Auto) 3.7 % Baso % (Auto) 0.7 % Neut # (Auto) 4.11 (1.4-6.5) K/uL Lymph # (Auto) 0.97 L (1.2-3.4) K/uL Ellis # (Auto) 0.63 H (0.11-0.59) K/uL Eos # (Auto) 0.22 (0-0.5) K/uL Baso # (Auto) 0.04 (0-0.2) K/uL Immature Gran # (Auto) 0.01 (0.00-0.02) K/uL PT (9.0-12.0) Seconds INR (0.9-1.1) Sodium (136-145) mmol/L Potassium (3.5-5.1) mmol/L Chloride (98-107) mmol/L Carbon Dioxide (21-32) mmol/L Anion Gap (3-11) BUN (6-23) mg/dl Creatinine (0.6-1.2) mg/dl Est Cr Clr Drug Dosing ml/min Est GFR ( Amer) ml/min Est GFR (Non-Af Amer) ml/min BUN/Creatinine Ratio (10-20) Glucose (70-99(Fasting)) mg/dl Calcium (8.5-10.1) mg/dl Magnesium (1.7-2.4) mg/dl Total Bilirubin (0.2-1.0) mg/dl AST (13-39) U/L ALT (7-52) U/L Alkaline Phosphatase (34-104) U/L Troponin I (0-0.04) ng/ml Total Protein (6.0-8.3) gm/dl Albumin (3.4-5.0) gm/dl Globulin (2.5-4.0) gm/dl Albumin/Globulin Ratio (0.9-2) Lipase 11 (11-82) U/L Procalcitonin (0-0.5) ng/ml TSH 2.056 (0.300-4.500) uIu/ml Urine Color Urine Appearance (Clear) Urine pH (4.5-7.5) Ur Specific Mobile (1.000-1.030) Urine Protein (Negative) Urine Glucose (UA) (Negative) Urine Ketones (Negative) Urine Blood (Negative) Urine Nitrite (Negative) Urine Bilirubin (Negative) Urine Urobilinogen (Negative) Ur Leukocyte Esterase (Negative) Urine WBC (Auto) (0-5) /hpf Urine RBC (Auto) (0-4) /hpf U Hyaline Cast (Auto) (0-5) /lpf U Epithel Cells (Auto) (0-5) /lpf Urine Bacteria (Auto) (Negative) SARS-CoV-2, RNA, NAAT (NEGATIVE) 10/29/21 10/29/21 Range/Units 20:22 20:47 WBC (4.8-10.8) K/uL RBC (4.2-5.4) M/uL Hgb (12.0-16.0) g/dL Hct (37-47) % MCV (80-100) fL MCH (25-34) pg MCHC (32-36) g/dL RDW Std Deviation (36.4-46.3) fL RDW Coeff of Anson (11.5-14.5) % Plt Count (130-400) K/uL MPV (7.4-10.4) fL Immature Gran % (Auto) % Neut % (Auto) % Lymph % (Auto) % Ellis % (Auto) % Eos % (Auto) % Baso % (Auto) % Neut # (Auto) (1.4-6.5) K/uL Lymph # (Auto) (1.2-3.4) K/uL Ellis # (Auto) (0.11-0.59) K/uL Eos # (Auto) (0-0.5) K/uL Baso # (Auto) (0-0.2) K/uL Immature Gran # (Auto) (0.00-0.02) K/uL PT (9.0-12.0) Seconds INR (0.9-1.1) Sodium (136-145) mmol/L Potassium (3.5-5.1) mmol/L Chloride (98-107) mmol/L Carbon Dioxide (21-32) mmol/L Anion Gap (3-11) BUN (6-23) mg/dl Creatinine (0.6-1.2) mg/dl Est Cr Clr Drug Dosing ml/min Est GFR ( Amer) ml/min Est GFR (Non-Af Amer) ml/min BUN/Creatinine Ratio (10-20) Glucose (70-99(Fasting)) mg/dl Calcium (8.5-10.1) mg/dl Magnesium (1.7-2.4) mg/dl Total Bilirubin (0.2-1.0) mg/dl AST (13-39) U/L ALT (7-52) U/L Alkaline Phosphatase (34-104) U/L Troponin I (0-0.04) ng/ml Total Protein (6.0-8.3) gm/dl Albumin (3.4-5.0) gm/dl Globulin (2.5-4.0) gm/dl Albumin/Globulin Ratio (0.9-2) Lipase (11-82) U/L Procalcitonin (0-0.5) ng/ml TSH (0.300-4.500) uIu/ml Urine Color Yellow Urine Appearance Clear (Clear) Urine pH 7.0 (4.5-7.5) Ur Specific Mobile 1.013 (1.000-1.030) Urine Protein Negative (Negative) Urine Glucose (UA) Negative (Negative) Urine Ketones 1+ H (Negative) Urine Blood Negative (Negative) Urine Nitrite Negative (Negative) Urine Bilirubin Negative (Negative) Urine Urobilinogen Negative (Negative) Ur Leukocyte Esterase Trace H (Negative) Urine WBC (Auto) 1-5 (0-5) /hpf Urine RBC (Auto) 0-4 (0-4) /hpf U Hyaline Cast (Auto) 0 (0-5) /lpf U Epithel Cells (Auto) >30 H (0-5) /lpf Urine Bacteria (Auto) Negative (Negative) SARS-CoV-2, RNA, NAAT NEGATIVE (NEGATIVE) Administered Medications Discontinued Medications Albuterol (Albut/Ipratrop 3mg/0.5mg Neb 3 Ml Vial) 3 ml NEB NOW STA; Protocol Stop: 10/29/21 20:13 Last Admin: 10/29/21 20:54 Dose: 3 ml Documented by: [id number] Ioversol (Optiray 320 125ml) 120 ml IV ONCE ONE Stop: 10/29/21 21:29 Last Admin: 10/29/21 21:29 Dose: 120 ml Documented by: [id number] Imaging Data Radiologist's Impression: Abdomen/Pelvis CT 10/29/21 20:[address] WITH IV CONTRAST CT DOSE: 665.90 mGy.cm HISTORY: epigastric pain, nausea, hypoxia TECHNIQUE: Multiaxial CT images of the abdomen and pelvis were performed following the use of intravenous contrast. A dose lowering technique was utilized adhering to the principles of ALARA. COMPARISON STUDY: Abdomen and pelvis CT 04/09/2007. FINDINGS: Please refer to same day chest CTA for further evaluation of the lung bases. No pneumoperitoneum. No pneumatosis. There are bilateral total hip arthroplasties. Posterior decompression and fusion within the lower lumbar spine. There is a fat-containing midline ventral hernia measuring 4.7 cm. Cholecystectomy. No hepatic or splenic masses. The adrenal glands and pancreas are unremarkable. The main portal vein is patent. No retroperitoneal lymphadenopathy. Calcified plaque within the normal caliber abdominal aorta. Multiple bilateral cortical and peripelvic renal cysts. No hydronephrosis. No pelvic lymphadenopathy or pelvic free fluid. The bladder is not well visualized but appears unremarkable. Moderate stool within the distal colon and rectum. No bowel wall thickening or obstruction. Prior hysterectomy. IMPRESSION: 1. No bowel wall thickening or obstruction. 2. No hydronephrosis. 3. A moderate size fat-containing midline ventral hernia. 4. Please refer to the same day chest CT for further evaluation of the lung bases. 5. Additional findings as described above. ACT 112: Negative or not required by law. Electronically signed by: Kaiden Yung M.D. 10/29/2021 9:52 PM Chest CTA 10/29/21 20:05 CHEST CTA for PULMONARY ARTERIES CT DOSE: HISTORY: PE, epigastric pain, nausea, hypoxia TECHNIQUE: Multiaxial CT images of the chest were performed following the intravenous administration of contrast to evaluate the pulmonary arteries. Maximal intensity projection images were also obtained. A dose lowering technique was utilized adhering to the principles of ALARA. COMPARISON STUDY: Chest CT 08/18/2020. FINDINGS: The thyroid gland enhances normally. Normal caliber esophagus. The heart is mildly enlarged. No pericardial effusion. Small right and trace left pleural effusions. The visualized liver and spleen are unremarkable. Calcified plaque within the normal caliber abdominal aorta. No evidence for an aortic dissection. An aortic valve stent is noted. There are few prominent mediastinal bilateral hilar lymph nodes which have increased in size. No filling defects within the pulmonary arteries to suggest a pulmonary embolus. No fractures within the visualized osseous structures. No pneumothorax. Calcified granuloma within the lingula. There is mild interlobular septal thickening consistent with mild interstitial pulmonary edema. There is a 2 cm bleb within the right lung apex. Bibasilar linear densities likely represent subsegmental atelectasis. Mild diffuse bronchial wall thickening. Stable 5 mm nodule within the right lower lobe on image 73. IMPRESSION: 1. No evidence for pulmonary embolus. 2. Mild interstitial pulmonary edema. There is also a small right and trace left pleural effusion. 3. Bibasilar linear densities favor subsegmental atelectasis. 4. Mild cardiomegaly. 5. A few prominent mediastinal bilateral hilar lymph nodes which have progressed in the interval. This could be due to chronic pulmonary edema. ACT 112: Negative or not required by law. Electronically signed by: Kaiden Yung M.D. 10/29/2021 9:46 PM Chest X-Ray 10/29/21 20:06 XR chest 1V portable HISTORY: weakness, hypoxia COMPARISON: Chest 08/05/2021. FINDINGS: No pneumothorax. The cardiac silhouette is mildly enlarged. An aortic valve stent is again noted. There is diffuse interstitial/vascular thickening consistent with mild pulmonary edema. This has progressed. There are small bilateral pleural effusions. Bibasilar linear densities favor subsegmental atelectasis. IMPRESSION: Interval development of mild interstitial pulmonary edema and small bilateral pleural effusions. ACT 112: Negative or not required by law. Electronically signed by: Kaiden Yung M.D. 10/29/2021 8:55 PM Discharge Plan Visit Data Chief Complaint: Shortness of Breath/Dyspnea Stated Complaint: sob ED Provider: Joe Rice Discharge Problem: Abdominal pain, S/P TAVR (transcatheter aortic valve replacement), Pulmonary edema, Hypoxia Patient Disposition: Being Evaluated by Hospitalist Forms Stand Alone Forms: My [facility] Prescriptions Prescriptions: No Action aspirin 81 mg tablet,chewable 81 mg PO QAM Qty: 90 RF: 3 Combivent Respimat 20-100 mcg/actuation mist 2 puff INHALATION QID Qty: 12 RF: 5 albuterol sulfate [Ventolin HFA] 90 mcg/actuation HFA aerosol inhaler 1 inh inhalation QID PRN (Reason: shortness of breath or wheezing) Qty: 18 RF: 3 Trelegy Ellipta 100-62.5-25 mcg blister with device 1 inh inhalation DAILY Qty: 60 RF: 0 amlodipine 10 mg Tablet 5 mg PO QAM RF: 0 meclizine 25 mg Tablet,Chewable 25 mg PO TID PRN (Reason: Anxiety) RF: 0 metoprolol succinate 25 mg tablet extended release 24 hr 12.5 mg PO QAM RF: 0 lorazepam 0.5 mg Tablet 0.5 - 1 mg PO TID PRN (Reason: Anxiety) RF: 0 simvastatin 20 mg Tablet 20 mg PO HS RF: 0 isosorbide dinitrate 20 mg Tablet 20 mg PO TID RF: 0 PreserVision AREDS-2 [id number] Capsule 1 tab PO BID RF: 0 amoxicillin 500 mg capsule 2,000 mg PO DIRECTED PRN (Reason: premedication for dental appt) RF: 0 ondansetron 4 mg Tablet,Disintegrating 4 - 8 mg PO Q8H PRN (Reason: Nausea) RF: 0 Anoro Ellipta 62.5-25 mcg/actuation blister with device 1 inh inhalation QAM RF: 0 polyethylene glycol 3350 [Miralax] 17 gram Powder In Packet 17 g PO DAILY PRN (Reason: Constipation) RF: 0 docusate sodium [Colace] 100 mg Capsule 100 mg PO QAM RF: 0 mirtazapine 15 mg Tablet,Disintegrating 15 mg PO HS RF: 0 oxycodone 5 mg Tablet 5 mg PO Q8H PRN (Reason: Pain) RF: 0 cholecalciferol (vitamin D3) [Vitamin D3] 25 mcg (1,000 unit) Tablet 25 mcg PO QAM RF: 0 warfarin 2 mg tablet 4 mg PO DAILY Qty: 60 RF: 0 oxycodone 5 mg capsule 5 mg PO Q6H PRN (Reason: pain) Qty: 12 RF: 0 Referrals Referrals: Klaus Dougals MD [Primary Care Provider] - Discharge Problem: Abdominal pain Qualifiers: Abdominal location: upper abdomen, unspecified Qualified Code(s): R10.10 - Upper abdominal pain, unspecified Pulmonary edema Qualifiers: Chronicity: acute Qualified Code(s): J81.0 - Acute pulmonary edema
[2021-10-29] MEDS ORDERED: ALBUT/IPRATROP 3MG/0.5MG NEB 3 ML VIAL NEB STA (20:12)
[2021-10-29 20:17] VITALS: TEMP 98.2
[2021-10-29 20:22] LABS: Basophils # (auto) 0.04 K/uL (0-0.2); Basophils % (auto) 0.7 %; Eosinophils # (auto) 0.22 K/uL (0-0.5); Eosinophils % (auto) 3.7 %; Hemoglobin 13.2 g/dL (12.0-16.0); Immature Granulocytes # (auto) 0.01 K/uL (0.00-0.02); Immature Granulocytes % (auto) 0.2 %; Lymphocytes # (auto) 0.97 K/uL (1.2-3.4); Lymphocytes % (auto) 16.2 %; Mean Corpuscular Hemoglobin 29.7 pg (25-34); Mean Corpuscular Hgb Conc 30.7 g/dL (32-36); Mean Corpuscular Volume 96.8 fL (80-100); Mean Platelet Volume 10.7 fL (7.4-10.4); Monocytes # (auto) 0.63 K/uL (0.11-0.59); Monocytes % (auto) 10.5 %; Neutrophils # (auto) 4.11 K/uL (1.4-6.5); Neutrophils % (auto) 68.7 %; Platelet Count 194 K/uL (130-400); RDW Coefficient of Variation 14.8 % (11.5-14.5); RDW Standard Deviation 52.6 fL (36.4-46.3); Red Blood Count 4.44 M/uL (4.2-5.4); White Blood Count 5.98 K/uL (4.8-10.8)
[2021-10-29 20:40] LABS: Prothrombin Time 10.3 Seconds (9.0-12.0)
--- NOTE | 2021-10-29 20:57 | XRay Report ---
XR chest 1V portable HISTORY: weakness, hypoxia COMPARISON: Chest 08/05/2021. FINDINGS: No pneumothorax. The cardiac silhouette is mildly enlarged. An aortic valve stent is again noted. There is diffuse interstitial/vascular thickening consistent with mild pulmonary edema. This h as progressed. There are small bilateral pleural effusions. Bibasilar linear densities favor subsegme ntal atelectasis. IMPRESSION: Interval development of mild interstitial pulmonary edema and small bilateral pleural effusions. ACT 112: Negative or not required by law. Electronically signed by: Kaiden Yung M.D. 10/29/2021 8:55 PM
[2021-10-29 21:02] LABS: Appearance Urine Clear (Clear); Bacteria Urine Automated Negative (Negative); Bilirubin Urine Negative (Negative); Blood Urine Negative (Negative); Cast Urine Automated 0 /lpf (0-5); Color Urine Yellow; Epithelial Cell Urine Auto >30 /lpf (0-5); Glucose Urine UA Negative (Negative); Ketones Urine 1+ (Negative); Leukocyte Esterase Urine Trace (Negative); Nitrite Urine Negative (Negative); Protein Urine Negative (Negative); RBC Urine Automated 0-4 /hpf (0-4); Specific Gravity Urine 1.013 (1.000-1.030); Urobilinogen Urine Negative (Negative)
[2021-10-29 21:10] LABS: Troponin I < 0.03 ng/ml (0-0.04)
[2021-10-29 21:13] LABS: Alanine Aminotransferase 8 U/L (7-52); Albumin Globulin Ratio 1.6 (0.9-2); Albumin Level 3.9 gm/dl (3.4-5.0); Alkaline Phosphatase 79 U/L (34-104); Anion Gap 6 (3-11); Aspartate Aminotransferase 14 U/L (13-39); BUN Creatinine Ratio 20.4 (10-20); Bilirubin,Total 0.4 mg/dl (0.2-1.0); Blood Urea Nitrogen 21 mg/dl (6-23); Calcium 8.8 mg/dl (8.5-10.1); Carbon Dioxide 28 mmol/L (21-32); Chloride 106 mmol/L (98-107); Creatinine Clr Calc Pharmacy 37.9 ml/min; Est GFR (African American) 57.4 ml/min; Est GFR (Non-African American) 49.5 ml/min; Globulin 2.4 gm/dl (2.5-4.0); Glucose 175 mg/dl (70-99(Fasting)); Magnesium 2.1 mg/dl (1.7-2.4); Potassium 4.3 mmol/L (3.5-5.1); Sodium 140 mmol/L (136-145); Total Protein 6.3 gm/dl (6.0-8.3)
[2021-10-29] MEDS ORDERED: OPTIRAY 320 125ml IV ONE (21:28)
--- NOTE | 2021-10-29 21:47 | CT Scan Report ---
CHEST CTA for PULMONARY ARTERIES CT DOSE: HISTORY: PE, epigastric pain, nausea, hypoxia TECHNIQUE: Multiaxial CT images of the chest were performed following the intravenous administration of contrast to evaluate the pulmonary arteries. Maximal intensity projection images were also obtaine d. A dose lowering technique was utilized adhering to the principles of ALARA. COMPARISON STUDY: Chest CT 08/18/2020. FINDINGS: The thyroid gland enhances normally. Normal caliber esophagus. The heart is mildly enlarged . No pericardial effusion. Small right and trace left pleural effusions. The visualized liver and spl een are unremarkable. Calcified plaque within the normal caliber abdominal aorta. No evidence for an aortic dissection. An aortic valve stent is noted. There are few prominent mediastinal bilateral robbie r lymph nodes which have increased in size. No filling defects within the pulmonary arteries to sugge st a pulmonary embolus. No fractures within the visualized osseous structures. No pneumothorax. Calci fied granuloma within the lingula. There is mild interlobular septal thickening consistent with mild interstitial pulmonary edema. There is a 2 cm bleb within the right lung apex. Bibasilar linear densi ties likely represent subsegmental atelectasis. Mild diffuse bronchial wall thickening. Stable 5 mm n odule within the right lower lobe on image 73. IMPRESSION: 1. No evidence for pulmonary embolus. 2. Mild interstitial pulmonary edema. There is also a small right and trace left pleural effusion. 3. Bibasilar linear densities favor subsegmental atelectasis. 4. Mild cardiomegaly. 5. A few prominent mediastinal bilateral hilar lymph nodes which have progressed in the interval. Thi s could be due to chronic pulmonary edema. ACT 112: Negative or not required by law. Electronically signed by: Kaiden Yung M.D. 10/29/2021 9:46 PM
--- NOTE | 2021-10-29 21:54 | CT Scan Report ---
ABDOMEN AND PELVIS CT WITH IV CONTRAST CT DOSE: 665.90 mGy.cm HISTORY: epigastric pain, nausea, hypoxia TECHNIQUE: Multiaxial CT images of the abdomen and pelvis were performed following the use of intrave nous contrast. A dose lowering technique was utilized adhering to the principles of ALARA. COMPARISON STUDY: Abdomen and pelvis CT 04/09/2007. FINDINGS: Please refer to same day chest CTA for further evaluation of the lung bases. No pneumoperit oneum. No pneumatosis. There are bilateral total hip arthroplasties. Posterior decompression and fusi on within the lower lumbar spine. There is a fat-containing midline ventral hernia measuring 4.7 cm. Cholecystectomy. No hepatic or splenic masses. The adrenal glands and pancreas are unremarkable. The main portal vein is patent. No retroperitoneal lymphadenopathy. Calcified plaque within the normal ca liber abdominal aorta. Multiple bilateral cortical and peripelvic renal cysts. No hydronephrosis. No pelvic lymphadenopathy or pelvic free fluid. The bladder is not well visualized but appears unremarka ble. Moderate stool within the distal colon and rectum. No bowel wall thickening or obstruction. Prio r hysterectomy. IMPRESSION: 1. No bowel wall thickening or obstruction. 2. No hydronephrosis. 3. A moderate size fat-containing midline ventral hernia. 4. Please refer to the same day chest CT for further evaluation of the lung bases. 5. Additional findings as described above. ACT 112: Negative or not required by law. Electronically signed by: Kaiden Yung M.D. 10/29/2021 9:52 PM
[2021-10-29] MEDS ORDERED: FUROSEMIDE 40 MG/4 ML VIAL IV ONE (22:04)
[2021-10-29] MEDS ORDERED: ALUMINUM/MAGNESIUM SUSP 18 ML, LIDOCAINE VISCOUS 2% SOLN 6 ML, BARCODE IDENTIFIER 1 EA PO ONE (22:05)
[2021-10-29] MEDS ORDERED: FAMOTIDINE 20MG IV PUSH 20 MG/5 ML SYR IV STA (22:05)
[2021-10-29] MEDS ORDERED: GI COCKTAIL ED USE PO STA (22:46)
--- NOTE | 2021-10-30 00:36 | History & Physical Report ---
Date of Service October 30, 2021 Assessment & Plan (1) Acute hypoxemic respiratory failure: Plan: Secondary to decompensated heart failure hx diastolic dysfunction (TTE 60 to 65%, TTE 2020) Likely pulmonary hypertension given elevated RV systolic pressure on recent TTE, hx COPD ? Uncontrolled hypertension as possible precipitant Chronic LBBB CAD/PVD as per records aortic stenosis status post TAVR hyperlipidemia on statin Rx Hyperglycemia possible prediabetes, hemoglobin A1c of 6.17 February 2021 past tobacco abuse PCU Supplemental O2 Diuretic rx Strict I/Os, daily weights, CHF education Update TTE, Cardiology consult Re: Decompensated heart failure Titrate home BP meds Update hemoglobin A1c DVT prophylaxis. Lovenox subcu DNR Text document was generated using [employer] voice recognition software. It may contain grammatical or spelling errors. Kindly contact undersigned for clarification of any documentation item in question. History of Present Illness Chief Complaint: Abdominal pain, shortness of breath, low oxygen Primary Care Provider: Klaus Douglas MD History obtained from patient and records. Medical history significant for chronic diastolic dysfunction (TTE 60-65%, TTE 2020, CAD/PVD/TIA as per records, chronic LBBB, aortic stenosis status post TAVR, hypertension, hyperlipidemia, COPD, history traumatic SAH, past tobacco abuse Recent confinement February 2021 for LUE numbness and chest discomfort. This afternoon, patient noticed achy epigastric discomfort with shortness of breath. No fever, no chills. No actual chest pain, no cough symptoms. No fluid retention. Patient thinks she is actually lost weight. Patient does not check blood pressure at home. O2 sats 80s upon arrival of EMS. SBP 180s. Patient compliant with home medications. No unusual stress at home. IV Lasix administered at the ER upon arrival. 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 Allergies Allergy/AdvReac Type Severity Reaction Status Date / Time atenolol Allergy Intermediate RASH AND Verified 08/17/21 06:52 ITCHING-TAKES TOPROL-XL AT HOME Sulfa (Sulfonamide Allergy Mild "SULFA Verified 08/17/21 06:52 Antibiotics) DRUGS": UNKNOWN lisinopril AdvReac Intermediate COUGH Verified 08/17/21 06:52 Home Medications Medication Instructions Recorded Confirmed Type amlodipine 10 mg tablet 5 mg PO QAM 12/31/18 10/29/21 History meclizine 25 mg chewable tablet 25 mg PO TID PRN 12/31/18 10/29/21 History isosorbide dinitrate 20 mg tablet 20 mg PO TID 05/29/19 10/29/21 History lorazepam 0.5 mg tablet 0.5 - 1 mg PO TID PRN 05/29/19 10/29/21 History metoprolol succinate 25 mg 12.5 mg PO QAM 05/29/19 10/29/21 History tablet,extended release 24 hr simvastatin 20 mg tablet 20 mg PO HS 05/29/19 10/29/21 History vit C 250 mg-vit E 90 mg-zinc 40 1 tab PO BID 05/29/19 10/29/21 History mg-copper 1 [id number] capsule (PreserVision AREDS-2) amoxicillin 500 mg capsule 2,000 mg PO DIRECTED PRN 05/16/20 10/29/21 History ondansetron 4 mg disintegrating 4 - 8 mg PO Q8H PRN 05/16/20 10/29/21 History tablet albuterol sulfate 90 mcg/actuation 1 inh INHALATION QID PRN #18 g 03/02/21 10/29/21 Rx aerosol inhaler (Ventolin HFA) fluticasone fur. 100 mcg-umeclid 1 inh INHALATION DAILY #60 ea 07/08/21 10/29/21 Rx 62.5 mcg-vilant 25 mcg inhalat.powder (Trelegy Ellipta) docusate sodium 100 mg capsule 100 mg PO QAM 08/04/21 10/29/21 History (Colace) mirtazapine 15 mg disintegrating 15 mg PO HS 08/04/21 10/29/21 History tablet polyethylene glycol 3350 17 gram 17 g PO DAILY PRN 08/04/21 10/29/21 History oral powder packet (Miralax) ipratropium 20 mcg-albuterol 100 2 puff INHALATION QID #12 g 10/11/21 10/29/21 Rx mcg/actuation mist for inhalation (Combivent Respimat) aspirin 81 mg tablet,delayed 81 mg PO DAILY 10/29/21 10/29/21 History release ergocalciferol (vitamin D2) 1,250 50,000 unit PO WK 10/29/21 10/29/21 History mcg (50,000 unit) capsule hydrocodone 5 mg-acetaminophen 325 1 tab PO Q8 PRN 10/29/21 10/29/21 History mg tablet nystatin 100,000 unit/gram topical 1 applic TOPICAL TID PRN 10/29/21 10/29/21 History powder zolpidem 5 mg tablet (Ambien) 5 mg PO HS PRN 10/29/21 10/29/21 History Past Med/Surg History Medical History Carotid stenosis 50-69% TONNY 03/12/2019 duplex per [facility] cardio CKD (chronic kidney disease), stage III COPD (chronic obstructive pulmonary disease) follows with [facility], on Trelegy Coronary artery disease "diffuse minor CAD by cardiac catheterization 01/27/2019" per [facility] cardio note 06/29/2021 Dyslipidemia Dyspnea GERD (gastroesophageal reflux disease) controlled, stable per pt Hip dislocation, left currently in a brace HTN (hypertension) controlled, stable per pt Left bundle branch block chronic per [facility] cardio note-noted post TAVR 05/27/2019 per [facility]) cardio note Macular degeneration Multiple pulmonary nodules determined by computed tomography of lung no further imaging needed given stability from 2019 per [facility] note 07/08/2021 Osteoporosis Transient ischemic attack (TIA) possible per cardio note, 02/26/2021-negative CT and MRI imaging-on ASA per cardio with Plavix d/c due to subdural hematoma that subsequently resolved (cleared by neurosurgery [facility] Traumatic subarachnoid hemorrhage Vertebral artery stenosis 75% stenosis of left vertebral artery per 05/30/2019 neck CTA Vertigo Surgical History Fusion of spine H/O hernia repair RT INGUINAL HERNIA History of cardiac catheterization 05/15/2019 TAVR. 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 Bearden at [facility] 02/26/2021-normal gradient S/P tonsillectomy and adenoidectomy Status post total hip replacement, right Family History Other No family history of adverse response to anesthesia Stroke Social History Smoking Status: Former smoker Second Hand Exposure: Yes ([employer]MO[employer]); Hx Alcohol Use: No Hx Substance Use: No Preferred Language: Kazakh Communication Ability: Effective Crystal Cutter Required: No Beliefs That Will Affect Care: None marital status: Current Living Situation: Spouse Other Information That Helps Us Care for You: No Feels Safe at Home: Yes Safety Concerns: Feels Safe At This Time Assistive Devices: Cane Review of Systems Review of Systems: As per HPI, all 10 systems reviewed, all other ROS negative Physical Exam Physical Exam: GENERAL: Comfortable, pleasant, overt respiratory distress SKIN: Normal color, warm HEENT: Bespectacled, pink palpebral conjunctivae, no ptosis, dry buccal mucosa, nasal cannula in place NECK : Supple, no tenderness CHEST : Decreased breath sounds, no tenderness HEART : RRR, systolic murmur ABDOMEN: Some distention, nontender EXTREMITIES : Minimal LE swelling, no LE tenderness, other conspicuous deformities noted NEUROLOGIC : Coherent, no facial asymmetry, no other gross focality Results & Data Results & Data ([facility]) Vital Signs (Past 12 Hours) Vital Signs Temp Pulse Pulse Resp BP BP Pulse Ox 10/29/21 23:00 86 18 161/83 H 97 10/29/21 22:00 97 H 93 H 20 149/81 H 149/81 H 93 10/29/21 21:00 81 14 165/83 H 99 10/29/21 20:53 83 20 172/89 H 99 10/29/21 20:47 87 22 172/89 H 95 10/29/21 20:18 87 L 10/29/21 20:17 97 10/29/21 20:13 36.8 C 85 20 184/87 H 87 L 10/29/21 20:05 110 H 23 98 Laboratory Results Laboratory Results WBC 5.98 K/uL (4.8-10.8) 10/29/21 20:10 RBC 4.44 M/uL (4.2-5.4) 10/29/21 20:10 Hgb 13.2 g/dL (12.0-16.0) 10/29/21 20:10 Hct 43.0 % (37-47) 10/29/21 20:10 MCV 96.8 fL (80-100) 10/29/21 20:10 MCH 29.7 pg (25-34) 10/29/21 20:10 MCHC 30.7 g/dL (32-36) L 10/29/21 20:10 RDW Std Deviation 52.6 fL (36.4-46.3) H 10/29/21 20:10 RDW Coeff of [place] 14.8 % (11.5-14.5) H 10/29/21 20:10 Plt Count 194 K/uL (130-400) 10/29/21 20:10 MPV 10.7 fL (7.4-10.4) H 10/29/21 20:10 Immature Gran % (Auto) 0.2 % 10/29/21 20:10 Neut % (Auto) 68.7 % 10/29/21 20:10 Lymph % (Auto) 16.2 % 10/29/21 20:10 [place] % (Auto) 10.5 % 10/29/21 20:10 Eos % (Auto) 3.7 % 10/29/21 20:10 Baso % (Auto) 0.7 % 10/29/21 20:10 Neut # (Auto) 4.11 K/uL (1.4-6.5) 10/29/21 20:10 Lymph # (Auto) 0.97 K/uL (1.2-3.4) L 10/29/21 20:10 [place] # (Auto) 0.63 K/uL (0.11-0.59) H 10/29/21 20:10 Eos # (Auto) 0.22 K/uL (0-0.5) 10/29/21 20:10 Baso # (Auto) 0.04 K/uL (0-0.2) 10/29/21 20:10 Immature Gran # (Auto) 0.01 K/uL (0.00-0.02) 10/29/21 20:10 PT 10.3 Seconds (9.0-12.0) 10/29/21 20:10 INR 1.0 (0.9-1.1) 10/29/21 20:10 Sodium 140 mmol/L (136-145) 10/29/21 20:10 Potassium 4.3 mmol/L (3.5-5.1) 10/29/21 20:10 Chloride 106 mmol/L (98-107) 10/29/21 20:10 Carbon Dioxide 28 mmol/L (21-32) 10/29/21 20:10 Anion Gap 6 (3-11) 10/29/21 20:10 BUN 21 mg/dl (6-23) 10/29/21 20:10 Creatinine 1.03 mg/dl (0.6-1.2) 10/29/21 20:10 Est Cr Clr Drug Dosing 37.9 ml/min 10/29/21 20:10 Est GFR ( Amer) 57.4 ml/min 10/29/21 20:10 Est GFR (Non-Af Amer) 49.5 ml/min 10/29/21 20:10 BUN/Creatinine Ratio 20.4 (10-20) H 10/29/21 20:10 Glucose 175 mg/dl (70-99(Fasting)) H 10/29/21 20:10 Calcium 8.8 mg/dl (8.5-10.1) 10/29/21 20:10 Magnesium 2.1 mg/dl (1.7-2.4) 10/29/21 20:10 Total Bilirubin 0.4 mg/dl (0.2-1.0) 10/29/21 20:10 AST 14 U/L (13-39) 10/29/21 20:10 ALT 8 U/L (7-52) 10/29/21 20:10 Alkaline Phosphatase 79 U/L (34-104) 10/29/21 20:10 Troponin I < 0.03 ng/ml (0-0.04) 10/29/21 20:10 Total Protein 6.3 gm/dl (6.0-8.3) 10/29/21 20:10 Albumin 3.9 gm/dl (3.4-5.0) 10/29/21 20:10 Globulin 2.4 gm/dl (2.5-4.0) L 10/29/21 20:10 Albumin/Globulin Ratio 1.6 (0.9-2) 10/29/21 20:10 Lipase 11 U/L (11-82) 10/29/21 20:10 Procalcitonin < 0.05 ng/ml (0-0.5) 10/29/21 20:10 TSH 2.056 uIu/ml (0.300-4.500) 10/29/21 20:10 Urine Color Yellow 10/29/21 20:47 Urine Appearance Clear (Clear) 10/29/21 20:47 Urine pH 7.0 (4.5-7.5) 10/29/21 20:47 Ur Specific [place] 1.013 (1.000-1.030) 10/29/21:47 Urine Protein Negative (Negative) 10/29/21:47 Urine Glucose (UA) Negative (Negative) 10/29/21:47 Urine Ketones 1+ (Negative) H 10/29/21 20:47 Urine Blood Negative (Negative) 10/29/21:47 Urine Nitrite Negative (Negative) 10/29/21 20:47 Urine Bilirubin Negative (Negative) 10/29/21 20:47 Urine Urobilinogen Negative (Negative) 10/29/21 20:47 Ur Leukocyte Esterase Trace (Negative) H 10/29/21 20:47 Urine WBC (Auto) 1-5 /hpf (0-5) 10/29/21 20:47 Urine RBC (Auto) 0-4 /hpf (0-4) 10/29/21:47 U Hyaline Cast (Auto) 0 /lpf (0-5) 10/29/21:47 U Epithel Cells (Auto) >30 /lpf (0-5) H 10/29/21 20:47 Urine Bacteria (Auto) Negative (Negative) 10/29/21 20:47 SARS-CoV-2, RNA, NAAT NEGATIVE (NEGATIVE) 10/29/21 20:22 Impressions Abdomen/Pelvis CT 10/29/21 20:[address] WITH IV CONTRAST CT DOSE: 665.90 mGy.cm HISTORY: epigastric pain, nausea, hypoxia TECHNIQUE: Multiaxial CT images of the abdomen and pelvis were performed following the use of intravenous contrast. A dose lowering technique was utilized adhering to the principles of ALARA. COMPARISON STUDY: Abdomen and pelvis CT 04/09/2007. FINDINGS: Please refer to same day chest CTA for further evaluation of the lung bases. No pneumoperitoneum. No pneumatosis. There are bilateral total hip arthroplasties. Posterior decompression and fusion within the lower lumbar spine. There is a fat-containing midline ventral hernia measuring 4.7 cm. Cholecystectomy. No hepatic or splenic masses. The adrenal glands and pancreas are unremarkable. The main portal vein is patent. No retroperitoneal lymphadenopathy. Calcified plaque within the normal caliber abdominal aorta. Multiple bilateral cortical and peripelvic renal cysts. No hydronephrosis. No pelvic lymphadenopathy or pelvic free fluid. The bladder is not well visualized but appears unremarkable. Moderate stool within the distal colon and rectum. No bowel wall thickening or obstruction. Prior hysterectomy. IMPRESSION: 1. No bowel wall thickening or obstruction. 2. No hydronephrosis. 3. A moderate size fat-containing midline ventral hernia. 4. Please refer to the same day chest CT for further evaluation of the lung bases. 5. Additional findings as described above. ACT 112: Negative or not required by law. Electronically signed by: Kaiden Yung M.D. 10/29/2021 9:52 PM Chest CTA 10/29/21 20:05 CHEST CTA for PULMONARY ARTERIES CT DOSE: HISTORY: PE, epigastric pain, nausea, hypoxia TECHNIQUE: Multiaxial CT images of the chest were performed following the intravenous administration of contrast to evaluate the pulmonary arteries. Maximal intensity projection images were also obtained. A dose lowering technique was utilized adhering to the principles of ALARA. COMPARISON STUDY: Chest CT 08/18/2020. FINDINGS: The thyroid gland enhances normally. Normal caliber esophagus. The heart is mildly enlarged. No pericardial effusion. Small right and trace left pleural effusions. The visualized liver and spleen are unremarkable. Calcified plaque within the normal caliber abdominal aorta. No evidence for an aortic dissection. An aortic valve stent is noted. There are few prominent mediastinal bilateral hilar lymph nodes which have increased in size. No filling defects within the pulmonary arteries to suggest a pulmonary embolus. No fractures within the visualized osseous structures. No pneumothorax. Calcified granuloma within the lingula. There is mild interlobular septal thickening consistent with mild interstitial pulmonary edema. There is a 2 cm bleb within the right lung apex. Bibasilar linear densities likely represent subsegmental atelectasis. Mild diffuse bronchial wall thickening. Stable 5 mm nodule within the right lower lobe on image 73. IMPRESSION: 1. No evidence for pulmonary embolus. 2. Mild interstitial pulmonary edema. There is also a small right and trace left pleural effusion. 3. Bibasilar linear densities favor subsegmental atelectasis. 4. Mild cardiomegaly. 5. A few prominent mediastinal bilateral hilar lymph nodes which have progressed in the interval. This could be due to chronic pulmonary edema. ACT 112: Negative or not required by law. Electronically signed by: Kaiden Yung M.D. 10/29/2021 9:46 PM Chest X-Ray 10/29/21 20:06 XR chest 1V portable HISTORY: weakness, hypoxia COMPARISON: Chest 08/05/2021. FINDINGS: No pneumothorax. The cardiac silhouette is mildly enlarged. An aortic valve stent is again noted. There is diffuse interstitial/vascular thickening consistent with mild pulmonary edema. This has progressed. There are small bilateral pleural effusions. Bibasilar linear densities favor subsegmental atelectasis. IMPRESSION: Interval development of mild interstitial pulmonary edema and small bilateral pleural effusions. ACT 112: Negative or not required by law. Electronically signed by: Kaiden Yung M.D. 10/29/2021 8:55 PM Diagnostic Findings EKG as per my interpretation rate 85, NSR, normal axis, T wave abnormality lateral leads, septal infarct
[2021-10-30] MEDS ORDERED: amLODIPine BESYLATE 5 MG TAB PO ONE (00:40)
[2021-10-30] MEDS ORDERED: PROMETHAZINE HCL 12.5 MG in SODIUM CHLORIDE 0.9% 50 ML IV PRN (02:00)
[2021-10-30] MEDS ORDERED: POLYETHYLENE (MIRALAX) 17 GM PACK PO PRN (02:00)
[2021-10-30] MEDS ORDERED: ACETAMINOPHEN 325 MG TAB PO PRN (02:00)
[2021-10-30] MEDS ORDERED: ZOLPIDEM TARTRATE 5 MG TAB PO PRN (02:00)
[2021-10-30] MEDS ORDERED: LORazepam 0.5 MG TAB PO PRN (02:00)
[2021-10-30] MEDS ORDERED: traMADol HCL 50 MG TABLET PO PRN (02:00)
[2021-10-30] MEDS ORDERED: NITROGLYCERIN SL 0.4 MG/TAB TAB SL PRN (02:00)
[2021-10-30 05:18] LABS: Mean Corpuscular Hgb Conc 30.9 g/dL (32-36); Mean Platelet Volume 11.1 fL (7.4-10.4); Platelet Count 198 K/uL (130-400)
[2021-10-30 05:35] LABS: BUN Creatinine Ratio 15.8 (10-20); Creatinine Clr Calc Pharmacy 31.6 ml/min; Est GFR (African American) 50.8 ml/min; Est GFR (Non-African American) 43.8 ml/min; Potassium 4.1 mmol/L (3.5-5.1)
[2021-10-30 05:56] LABS: Hemoglobin 13.3 g/dL (12.0-16.0); Mean Corpuscular Volume 97.1 fL (80-100); RDW Coefficient of Variation 14.6 % (11.5-14.5); RDW Standard Deviation 51.9 fL (36.4-46.3); Red Blood Count 4.43 M/uL (4.2-5.4); White Blood Count 6.85 K/uL (4.8-10.8)
[2021-10-30 05:57] LABS: Basophils # (auto) 0.04 K/uL (0-0.2); Basophils % (auto) 0.6 %; Eosinophils # (auto) 0.17 K/uL (0-0.5); Eosinophils % (auto) 2.5 %; Immature Granulocytes # (auto) 0.01 K/uL (0.00-0.02); Immature Granulocytes % (auto) 0.1 %; Lymphocytes # (auto) 0.91 K/uL (1.2-3.4); Lymphocytes % (auto) 13.3 %; Monocytes % (auto) 13.1 %; Neutrophils # (auto) 4.82 K/uL (1.4-6.5); Neutrophils % (auto) 70.4 %; RBC Morphology Unremarkable
[2021-10-30] MEDS ORDERED: FUROSEMIDE 40 MG/4 ML VIAL IV ONE (08:00)
[2021-10-30] MEDS: Albuterol HFA 8 GM Inhaler (Combivent Respimat P&T Subs) INH SCH ×3 (08:40→15:59)
[2021-10-30] MEDS: Ipratropium HFA Inhaler (Combivent Respimat P&T Subs) INH SCH ×3 (08:40→15:59)
[2021-10-30] MEDS: ISOSORBIDE DINITRATE 20 MG TAB PO SCH ×2 (08:51→12:53)
[2021-10-30] MEDS ORDERED: FLUTICASONE FUROATE 100MCG 14 PUFFS/INHALER INH SCH (09:00)
[2021-10-30] MEDS ORDERED: IPRATROPIUM BROMIDE/ALBUTEROL respimat INH INH SCH (09:00)
[2021-10-30] MEDS ORDERED: METOPROLOL SUCC 25MG EXT REL TAB PO SCH (09:00)
[2021-10-30] MEDS ORDERED: DOCUSATE SODIUM 100 MG CAP PO SCH (09:00)
[2021-10-30] MEDS ORDERED: ASPIRIN 81 MG ECTAB PO SCH (09:00)
[2021-10-30] MEDS ORDERED: UMECLIDINIUM/VILANTEROL 62.5/25MCG 7 PUFFS/INHALER INH SCH (09:00)
[2021-10-30] MEDS ORDERED: ENOXAPARIN INJ 40 MG/0.4 ML SYR SQ SCH (09:00)
[2021-10-30] MEDS ORDERED: CEROVITE ADV FORMULA TAB PO SCH (09:00)
--- NOTE | 2021-10-30 12:25 | Cardiology Consultation ---
Date of Consultation October 30, 2021 Assessment & Plan (1) Dyspnea: CT of the chest negative for pulmonary embolism. CT and chest x-ray both concerning for mild interstitial edema, small pleural effusions. Patient was most recently treated with outpatient furosemide in 2019. Renal function is stable the patient is eager for discharge. I think would be reasonable for her to be discharged with new treatment to include furosemide 20 mg daily on Mondays, Wednesdays, and Fridays only. Will arrange outpatient cardiology follow-up. History of Present Illness Attending Physician: Gareth Guzman MD History of Present Illness Makenna Harris is an 86-year-old female seen in cardiology consultation per the request of Dr Berumen for the evaluation of acute congestive heart failure. The patient is well-known to the undersigned as I follow her as an outpatient. She describes symptoms of feeling transient "shaking "and dizziness with generalized illness that occurred on 2 separate occasions prompting emergency department evaluation overnight. Her blood pressure on presentation at 20:13 on 10/29/2021 was 184/87. She received 40 mg of IV furosemide last evening with interval improvement in her symptoms and blood pressure. Patient presented with similar symptoms along with left arm weakness in February,, cardiac/neurology work-ups negative at that time. Ongoing antiplatelet therapy recommended at the time of that admission. EKG performed 10/29/2021 and reviewed independently revealed normal sinus rhythm at 87 bpm with left bundle branch block, and resultant repolarization changes, unchanged compared to previous baseline. 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 with a # 23 mm Aldridge Brice S3 valve a.Left bundle branch block noted post TAVR 05/27/2019 3.Carotid artery stenosis, 50-69% TONNY stenosis by duplex 03/12/2019 4.CKD stage 3 5.COPD former smoker- quit in 2014 6.Hypertension 7.Dyslipidemia, LDL goal below 70 8.Diastolic dysfunction 9.GERD 10.History of TIA 11.History of syncope a.No concerning dysrhythmias noted on Zio 05/2021 12.History of traumatic subarachnoid hemorrhage in the setting of dual anti- platelet therapy with aspirin and Plavix -Completed course of Coumadin status post left hip arthroplasty, Coumadin d iscontinued for outpatient orthopedic progress note 09/01/2021. Allergies Allergy/AdvReac Type Severity Reaction Status Date / Time atenolol Allergy Intermediate RASH AND Verified 08/17/21 06:52 ITCHING-TAKES TOPROL-XL AT HOME Sulfa (Sulfonamide Allergy Mild "SULFA Verified 08/17/21 06:52 Antibiotics) DRUGS": UNKNOWN lisinopril AdvReac Intermediate COUGH Verified 08/17/21 06:52 Home Medications Medication Instructions Recorded Confirmed Type amlodipine 10 mg tablet 5 mg PO QAM 12/31/18 10/29/21 History meclizine 25 mg chewable tablet 25 mg PO TID PRN 12/31/18 10/29/21 History isosorbide dinitrate 20 mg tablet 20 mg PO TID 05/29/19 10/29/21 History lorazepam 0.5 mg tablet 0.5 - 1 mg PO TID PRN 05/29/19 10/29/21 History metoprolol succinate 25 mg 12.5 mg PO QAM 05/29/19 10/29/21 History tablet,extended release 24 hr simvastatin 20 mg tablet 20 mg PO HS 05/29/19 10/29/21 History vit C 250 mg-vit E 90 mg-zinc 40 1 tab PO BID 05/29/19 10/29/21 History mg-copper 1 gb-fajqet-zrmyfa capsule (PreserVision AREDS-2) amoxicillin 500 mg capsule 2,000 mg PO DIRECTED PRN 05/16/20 10/29/21 History ondansetron 4 mg disintegrating 4 - 8 mg PO Q8H PRN 05/16/20 10/29/21 History tablet albuterol sulfate 90 mcg/actuation 1 inh INHALATION QID PRN #18 g 03/02/21 10/29/21 Rx aerosol inhaler (Ventolin HFA) fluticasone fur. 100 mcg-umeclid 1 inh INHALATION DAILY #60 ea 07/08/21 10/29/21 Rx 62.5 mcg-vilant 25 mcg inhalat.powder (Trelegy Ellipta) docusate sodium 100 mg capsule 100 mg PO QAM 08/04/21 10/29/21 History (Colace) mirtazapine 15 mg disintegrating 15 mg PO HS 08/04/21 10/29/21 History tablet polyethylene glycol 3350 17 gram 17 g PO DAILY PRN 08/04/21 10/29/21 History oral powder packet (Miralax) ipratropium 20 mcg-albuterol 100 2 puff INHALATION QID #12 g 10/11/21 10/29/21 Rx mcg/actuation mist for inhalation (Combivent Respimat) aspirin 81 mg tablet,delayed 81 mg PO DAILY 10/29/21 10/29/21 History release ergocalciferol (vitamin D2) 1,250 50,000 unit PO WK 10/29/21 10/29/21 History mcg (50,000 unit) capsule hydrocodone 5 mg-acetaminophen 325 1 tab PO Q8 PRN 10/29/21 10/29/21 History mg tablet nystatin 100,000 unit/gram topical 1 applic TOPICAL TID PRN 10/29/21 10/29/21 History powder zolpidem 5 mg tablet (Ambien) 5 mg PO HS PRN 10/29/21 10/29/21 History Patient History Medical History Carotid stenosis 50-69% TONNY 03/12/2019 duplex per [facility] cardio CKD (chronic kidney disease), stage III COPD (chronic obstructive pulmonary disease) follows with [facility], on Trelegy Coronary artery disease "diffuse minor CAD by cardiac catheterization 01/27/2019" per [facility] cardio note 06/29/2021 Dyslipidemia Dyspnea GERD (gastroesophageal reflux disease) controlled, stable per pt Hip dislocation, left currently in a brace HTN (hypertension) controlled, stable per pt Left bundle branch block chronic per [facility] cardio note-noted post TAVR 05/27/2019 per [facility] cardio note Macular degeneration Multiple pulmonary nodules determined by computed tomography of lung no further imaging needed given stability from 2019 per [facility]m note 07/08/2021 Osteoporosis Transient ischemic attack (TIA) possible per cardio note, 02/26/2021-negative CT and MRI imaging-on ASA per cardio with Plavix d/c due to subdural hematoma that subsequently resolved (cleared by neurosurgery [facility]) Traumatic subarachnoid hemorrhage Vertebral artery stenosis 75% stenosis of left vertebral artery per 05/30/2019 neck CTA Vertigo Surgical History Fusion of spine H/O hernia repair RT INGUINAL HERNIA History of cardiac catheterization 05/15/2019 TAVR. 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 Metal Required: No Beliefs That Will Affect Care: None marital status: Current Living Situation: Spouse Other Information That Helps Us Care for You: No Feels Safe at Home: Yes Safety Concerns: Feels Safe At This Time Assistive Devices: Cane Review of Systems Review of Systems: All systems reviewed & are unremarkable except as noted in HPI & below Physical Exam Physical Exam: Temp Pulse Resp BP Pulse Ox 36.8 C 75 18 148/64 H 94 10/29/21 20:13 10/30/21 07:01 10/30/21 07:01 10/30/21 07:01 10/30/21 07:01 Constitutional: WD/WN, vitals as above Respiratory: Mildly decreased breath sounds at the bases Cardiovascular: RRR, no murmur, no edema Gastrointestinal (Abdomen): normal bowel sounds, soft, nontender, no hepatosplenomegaly Neurologic: PERRL, EOMI, accommodation nl, no face palsy, no dysarthria Results & Data ([facility]) Vital Signs (Past 12 Hours) Vital Signs Pulse Pulse Resp BP BP Pulse Ox 10/30/21 07:01 75 18 148/64 H 94 10/30/21 06:50 82 16 151/78 H 95 10/30/21 03:33 71 16 153/76 H 95 10/30/21 01:00 72 15 149/58 H 96
--- NOTE | 2021-10-30 13:08 | Discharge Summary ---
Date of Service October 30, 2021 Admission HPI Per Admitting Provider History obtained from patient and records. Medical history significant for chronic diastolic dysfunction (TTE 60-65%, TTE 2020, CAD/PVD/TIA as per records, chronic LBBB, aortic stenosis status post TAVR, hypertension, hyperlipidemia, COPD, history traumatic SAH, past tobacco abuse Recent confinement February 2021 for LUE numbness and chest discomfort. This afternoon, patient noticed achy epigastric discomfort with shortness of breath. No fever, no chills. No actual chest pain, no cough symptoms. No fluid retention. Patient thinks she is actually lost weight. Patient does not check blood pressure at home. O2 sats 80s upon arrival of EMS. SBP 180s. Patient compliant with home medications. No unusual stress at home. IV Lasix administered at the ER upon arrival. 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 Discharge Exam GENERAL: Alert and oriented x3. NAD, on 2L HEENT: No pallor, no icterus. Pupils equal, round and reactive to light. Oral mucosa moist. NECK: No JVD, no neck masses. HEART: S1 and S2 heard. Regular rate and rhythm. + murmur aortic and pulmonic area, no gallop. RESPIRATORY SYSTEM: Normal AP diameter. No accessory muscle use. No wheezing, b/b crackles. ABDOMEN: Soft, bowel sounds present, nontender, no distention. CENTRAL NERVOUS SYSTEM: No facial droop. Speech is clear. Obeys simple commands. Moves extremities. EXTREMITIES: 1-2+ edema, no erythema seen. Discharge Data Allergies Allergy/AdvReac Type Severity Reaction Status Date / Time atenolol Allergy Intermediate RASH AND Verified 08/17/21 06:52 ITCHING-TAKES TOPROL-XL AT HOME Sulfa (Sulfonamide Allergy Mild "SULFA Verified 08/17/21 06:52 Antibiotics) DRUGS": UNKNOWN lisinopril AdvReac Intermediate COUGH Verified 08/17/21 06:52 Consultations 10/29/21 22:23 ED Decision to Admit Stat 10/30/21 02:00 Consult Cardiology Routine Ordered Studies 10/29/21 20:05 CT abd pelvis IV con only Stat CT angio chest PE protocol Stat Hospital Course (1) Acute on chronic heart failure: #. Acute on Chronic diastolic heart failure 86-year-old lady with past medical history of chronic diastolic dysfunction, HTN, HLD, COPD, traumatic SAH, tobacco abuse in the past, aortic stenosis status post TAVR, chronic LBBB presented to our ED 10/29 with complaint of shortness of breath. Her chest imaging revealed pulmonary edema. She had been on Lasix dose in the past year but has not been on any diuretics lately. It is likely exacerbation of her chronic CHF. She has been evaluated by cardiology and cleared for discharge with Lasix doses 20 mg on Mondays, Wednesdays and Fridays only. She is to have follow-up BMP work-up done in a week time upon discharge. She is to follow-up with her primary care physician and cardiology upon discharge as an outpatient. On the day of discharge, patient reports feeling better, no abdominal discomfort, no increased shortness of breath, but she will undergo two-step test prior to discharge to determine home oxygen requirement. Following instructions were communicated at the point of discharge: Follow-up with your primary care physician within a week time. You have been started on Lasix 20 mg on Sunday, Sunday and Sunday by cardiology. Follow-up with cardiology as an outpatient in 1 to 2 weeks. Since you are started on Lasix, you will need to get a blood test BMP in a week time upon discharge. Please contact your primary care physician for the order for blood test. Take medications as prescribed. Total Time Total Time Spent Total Time Spent (In Minutes): 35 Discharge Plan Discharge Items Patient Disposition: Home - Self-Care Reason For Visit: RESP FAILURE Discharge Diagnosis: Acute on chronic diastolic heart failure. Activity: Resume your previous activity Non-emergency contact: Primary Care Provider Call non-emergency contact if: you have any medication questions, your pain is not controlled and your temperature is above 101 Follow-up/Referrals: Klaus Douglas MD [Primary Care Provider] - Diet: Heart Healthy Addtl Attending Provider Instructions: Follow-up with your primary care physician within a week time. You have been started on Lasix 20 mg on Sunday, Sunday and Sunday by cardiology. Follow-up with cardiology as an outpatient in 1 to 2 weeks. Since you are started on Lasix, you will need to get a blood test BMP in a week time upon discharge. Please contact your primary care physician for the order for blood test. Take medications as prescribed. Pending Studies at Discharge: No Stand-Alone Forms: My [facility] [place], Smoking Cessation Medications and DC Order Prescriptions: New furosemide 20 mg tablet 20 mg PO Q OTHER DAY Qty: 14 RF: 0 Continued Combivent Respimat 20-100 mcg/actuation mist 2 puff INHALATION QID Qty: 12 RF: 5 albuterol sulfate [Ventolin HFA] 90 mcg/actuation HFA aerosol inhaler 1 inh inhalation QID PRN (Reason: shortness of breath or wheezing) Qty: 18 RF: 3 Trelegy Ellipta 100-62.5-25 mcg blister with device 1 inh inhalation DAILY Qty: 60 RF: 0 amlodipine 10 mg Tablet 5 mg PO QAM RF: 0 meclizine 25 mg Tablet,Chewable 25 mg PO TID PRN (Reason: Anxiety) RF: 0 metoprolol succinate 25 mg tablet extended release 24 hr 12.5 mg PO QAM RF: 0 lorazepam 0.5 mg Tablet 0.5 - 1 mg PO TID PRN (Reason: Anxiety) RF: 0 simvastatin 20 mg Tablet 20 mg PO HS RF: 0 isosorbide dinitrate 20 mg Tablet 20 mg PO TID RF: 0 PreserVision AREDS-2 [id number] [id number] Capsule 1 tab PO BID RF: 0 amoxicillin 500 mg capsule 2,000 mg PO DIRECTED PRN (Reason: premedication for dental appt) RF: 0 ondansetron 4 mg Tablet,Disintegrating 4 - 8 mg PO Q8H PRN (Reason: Nausea) RF: 0 polyethylene glycol 3350 [Miralax] 17 gram Powder In Packet 17 g PO DAILY PRN (Reason: Constipation) RF: 0 docusate sodium [Colace] 100 mg Capsule 100 mg PO QAM RF: 0 mirtazapine 15 mg Tablet,Disintegrating 15 mg PO HS RF: 0 hydrocodone-acetaminophen 5-325 mg tablet 1 tab PO Q8 PRN (Reason: Pain) RF: 0 ergocalciferol (vitamin D2) 1,250 mcg (50,000 unit) capsule 50,000 unit PO WK RF: 0 aspirin 81 mg Tablet,Delayed Release (Dr/Ec) 81 mg PO DAILY RF: 0 zolpidem [Ambien] 5 mg Tablet 5 mg PO HS PRN (Reason: Sleep) RF: 0 nystatin 100,000 unit/gram powder 1 applic TOPICAL TID PRN (Reason: irritation) RF: 0 Discharge Orders: Discharge Order (Routine); Ordered 10/30/21 Ordered By: Gareth Guzman Admission Data Admit Date/Time: 10/30/21 00:40 Attending Provider: Gareth Guzman Admit Provider: Clifford Berumen Primary Care Provider: Klaus Douglas Other Providers: Clifford Berumen ; Mark Marte ; Mark Singh ; Larry Miranda ; Jason Torres ; Addy Garland ; Olu Hernandez ; Madison May ; Rizwana Butts ; Kiah Jenkins ; Cj Erazo
[2021-10-30 15:13] VITALS: BP 118/50
[2021-10-30 16:27] VITALS: PULSE 90; O2SAT 91
[2021-10-30] MEDS ORDERED: SIMVASTATIN 20 MG TAB PO SCH (21:00)
[2021-10-30] MEDS ORDERED: MIRTAZAPINE SOLTAB 15 MG PO SCH (21:00)
[2021-10-31] MEDS: Albuterol HFA 8 GM Inhaler (Combivent Respimat P&T Subs) INH SCH ×3 (07:22→10:54)
[2021-10-31] MEDS: Ipratropium HFA Inhaler (Combivent Respimat P&T Subs) INH SCH ×3 (07:22→10:54)
[2021-10-31 07:33] LABS: Estimated Average Glucose 131 mg/dl; Hemoglobin A1C 6.2 % (4.5-5.6)
[2021-10-31] MEDS ORDERED: amLODIPine BESYLATE 5 MG TAB PO SCH (09:00)
--- NOTE | 2021-10-31 22:07 | Electrocardiogram Report ---
Test Reason : Blood Pressure : / mmHG Vent. Rate : 087 BPM Atrial Rate : 087 BPM P-R Int : 176 ms QRS Dur : 118 ms QT Int : 394 ms P-R-T Axes : 071 000 106 degrees QTc Int : 474 ms Normal sinus rhythm Incomplete left bundle block T wave abnormality, consider lateral ischemia Abnormal ECG When compared with ECG of 30-APR-2021 01:29, No significant change Confirmed by Juan Fuentes ([id number]) on 10/31/2021 10:07:22 PM Referred By: REFERRED SELF Confirmed By:Juan Fuentes
== END 2021-10-30 17:04 | disposition home or self-care (01) | DRG 291 ==
LOC: ED 19:57 → EDINP 10-30 00:40

== ENCOUNTER 2023-08-05 05:30 | Inpatient (IN) ==
[2023-08-05] MEDS ORDERED: ACETAMINOPHEN 1,000 MG/100 ML VIAL IV STA (05:53)
[2023-08-05 05:59] LABS: Base Excess VBG -1.7 mEq/L; HCO3 VBG 24 mmol/L; Oxygen Saturation VBG 97.7 %; PCO2 VBG 45 mmHg (38-50); PO2 VBG 96 mmHg; pH VBG 7.34 (7.36-7.41)
[2023-08-05 06:02] LABS: iSTAT Creatinine 1.2 mg/dl (0.6-1.3); iSTAT Hemoglobin 14.6 g/dl (12.0-16.0); iSTAT Ionized Calcium 1.07 mmol/l (1.12-1.32); iSTAT Potassium 3.7 mmol/L (3.3-5.0)
[2023-08-05 06:27] LABS: Albumin Level 3.8 gm/dl (3.4-5.0); BUN Creatinine Ratio 15.8 (10-20); Bilirubin Direct 0.4 mg/dl (0-0.2); Bilirubin,Total 1.1 mg/dl (0.2-1.0); Calcium 8.9 mg/dl (8.6-10.3); Creatinine Clr Calc Pharmacy 32.8 ml/min; Est GFR (African American) 47.1 ml/min; Est GFR (Non-African American) 40.6 ml/min; Magnesium 1.9 mg/dl (1.7-2.4); Potassium 3.7 mmol/L (3.5-5.1); Total Protein 6.8 gm/dl (6.0-8.3)
[2023-08-05] MEDS ORDERED: PIPERACILLIN/TAZOBACTAM 4.5 GM/100 ML BAG IV ONE (06:32)
[2023-08-05 06:55] LABS: Influenza A virus by PCR Negative (Neg); Influenza B virus by PCR Negative (Neg); RSV by PCR Negative (Neg); SARS CoV2 RNA(COVID-19) Ceph NEGATIVE (Negative)
[2023-08-05 07:07] LABS: Basophils # (auto) 0.02 K/uL (0.00-0.20); Basophils % (auto) 0.5 %; Hematocrit (blood only) 43.6 % (37.0-47.0); Immature Granulocytes # (auto) 0.03 K/uL (0.01-0.20); Immature Granulocytes % (auto) 0.7 %; Lymphocytes % (auto) 4.7 %; Mean Corpuscular Hgb Conc 32.1 g/dL (32.0-36.0); Mean Corpuscular Volume 93.4 fL (80.0-100.0); Mean Platelet Volume 11.5 fL (9.4-12.4); Monocytes # (auto) 0.33 K/uL (0.11-0.59); Monocytes % (auto) 7.7 %; Neutrophils % (auto) 86.4 %; Platelet Count 88 K/uL (130-400); Platelet Estimate Decreased (Normal); RDW Coefficient of Variation 13.6 % (11.5-14.5); RDW Standard Deviation 46.4 fL (36.4-46.3); Red Blood Count 4.67 M/uL (4.20-5.40); White Blood Count 4.28 K/ul (4.8-10.8)
--- NOTE | 2023-08-05 07:25 | Emergency Department Note ---
Impression & Plan Hypoxia, Right lower lobe pneumonia, Fall Admit to the [facility] ED Provider Note NAME: IRENA EUGENE AGE: 88 SEX: Female INFORMANT: Patient ED PROVIDER(S): Elizabeth Melgar DO CHIEF COMPLAINT: Shortness of breath; fall PLAN: Disposition: Admit to the [facility] MEDICAL DECISION MAKING: This is an 88-year-old female patient with a history of COPD who presents to the emergency department with worsening shortness of breath and fall. The patient has been increasing shortness of breath over the past 2 days. She suffered a fall at home tonight while trying to walk in the dark. She was extremely weak and had difficulty getting up. EMS was called and upon their arrival found the patient with an O2 saturation in the 60s. Patient has a history of COPD. They placed her on supplemental oxygen and gave her a DuoNeb treatment as the patient has a history of COPD and was wheezing. chad their arrival here in the ER her saturation was 87%. Patient was febrile. 70 work-up was performed. She was noted to have a right lower lobe pneumonia and was treated with IV Zosyn. Septic indicators were negative. Patient had no leukocytosis or evidence of anemia. The patient's glucose was elevated at 131. A VBG was obtained. pH was 7.34. CO2 and O2 were normal. Bicarb was normal. Care/management discussed with: Case management and [facility] Triage Nursing notes: Reviewed and agree with them. Vital Signs: reviewed and remarkable for hypoxia, fever, hypertension, tachycardia and tachypnea Additional History obtained from: EMS Chronic Medical/Social Conditions affecting care: COPD Prior/ Outside/ External records reviewed: Pulmonary note from November 2022 Differential Diagnosis: Sepsis, pneumonia, COVID-19, respiratory failure, COPD exacerbation Diagnostics, independently interpreted by me: ECG: Sinus tachycardia at a rate of 135 with PVCs and a left bundle branch block. Cardiac Monitoring: Sinus tachycardia at 112 Imaging studies: Right lower lobe pulmonary opacity consistent with pneumonia as per my independent interpretation HPI: 88 year old Female arrives for evaluation of shortness of breath and fall. Patient has been increasingly short of breath over the past 2 days. She has a history of COPD. She got up from bed tonight and was walking in the dark when she fell to the ground. She was too weak to get up and called EMS for help. Upon their arrival she she was found with an O2 saturation in the 60s. EMS administered DuoNeb and supplemental oxygen. Patient denies injuring herself during the fall. PAST MEDICAL HISTORY: See Below, PAST SURGICAL HISTORY: See Below, SOCIAL HISTORY: See Below, HOME MEDICATIONS: See list ALLERGIES: See list VITALS: See Below PHYSICAL EXAMINATION: HEENT: Head - normocephalic and atraumatic Pupils are equal, round, and reactive to light. Extraocular eye muscles are intact, and sclera are anicteric. Nose - moist nasal mucosa without discharge. Mouth - moist buccal mucosa. Oropharynx is nonerythematous and there is no tonsillar exudate or edema noted. Neck: Supple; no JVD or cervical lymphadenopathy Heart: Tachycardic rate and regular rhythm. There is a normal S1 and S2 with no murmurs, clicks, or gallops appreciated. Lungs: Diminished breath sounds in all lung flores Abdomen: Soft, completely nontender, nondistended, with good bowel sounds. There are no palpable pulsatile masses or hepatosplenomegaly. There is no guarding, rigidity, or rebound noted. Extremities: No evidence of cyanosis, clubbing, or edema. There are easily palpable peripheral pulses. Skin: warm and dry with good turgor and no rashes. Emergency department treatment: Supplemental oxygen, property assessment monitor, IV Zosyn Emergency department course: Patient was evaluated in room B9. A complete history and physical was performed. The patient was immediately placed on supplemental oxygen. An order was placed for continuous cardiac monitoring. The patient was in a sinus tachycardia at a rate of 112. Laboratory studies were drawn as above. A septic protocol was performed. A twelve-lead EKG was obtained as described above. Portable chest x-ray was performed which showed evidence of pneumonia. Patient was given a dose of IV Zosyn. O2 saturations remained stable on the supplemental oxygen. A VBG was obtained. I discussed the case with the [facility] Hospitalist and they will evaluate for further inpatient care. Past Med/Surg History Medical History Carotid stenosis CKD (chronic kidney disease), stage III COPD (chronic obstructive pulmonary disease) Coronary artery disease Dyslipidemia Dyspnea GERD (gastroesophageal reflux disease) Hip dislocation, left HTN (hypertension) Left bundle branch block Macular degeneration Multiple pulmonary nodules determined by computed tomography of lung Osteoporosis Transient ischemic attack (TIA) Traumatic subarachnoid hemorrhage Vertebral artery stenosis Vertigo Surgical History Fusion of spine H/O hernia repair History of cardiac catheterization History of cataract surgery History of cholecystectomy History of colonoscopy History of hysterectomy History of tooth extraction History of total hip arthroplasty S/P revision 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) S/P tonsillectomy and adenoidectomy Family History Other No family history of adverse response to anesthesia Stroke Social History Smoking Status: Former smoker Second Hand Exposure: Yes (son smokes); Do You Dip or Chew Tobacco: No; Hx Alcohol Use: No Hx Substance Use: No Preferred Language: Spanish Communication Ability: Effective Graduate Nurse Required: No Beliefs That Will Affect Care: None marital status: Current Living Situation: Spouse Other Information That Helps Us Care for You: No Feels Safe at Home: Yes Safety Concerns: Feels Safe At This Time Assistive Devices: Brace/Splint/Immobilizer, Cane, Glasses and Walker Allergies Allergies Allergy/AdvReac Type Severity Reaction Status Date / Time atenolol Allergy Intermediate RASH AND Verified 12/05/22 13:33 ITCHING-TAKES TOPROL-XL AT HOME Sulfa (Sulfonamide Allergy Mild "SULFA Verified 12/05/22 13:33 Antibiotics) DRUGS": UNKNOWN lisinopril AdvReac Intermediate COUGH Verified 12/05/22 13:33 Home Meds Home Medications Medication Instructions Recorded Confirmed amlodipine 10 mg tablet 5 mg PO QAM 12/31/18 08/05/23 meclizine 25 mg chewable tablet 25 mg PO TID PRN Anxiety 12/31/18 08/05/23 isosorbide dinitrate 20 mg tablet 20 mg PO TID 05/29/19 08/05/23 metoprolol succinate 25 mg 12.5 mg PO QAM 05/29/19 08/05/23 tablet,extended release 24 hr simvastatin 20 mg tablet 20 mg PO HS 05/29/19 08/05/23 vit C 250 mg-vit E 90 mg-zinc 40 1 tab PO BID 05/29/19 08/05/23 mg-copper 1 [id number] capsule (PreserVision AREDS-2) ondansetron 4 mg disintegrating 4 - 8 mg PO Q8H PRN Nausea 05/16/20 08/05/23 tablet docusate sodium 100 mg capsule 100 mg PO QAM 08/04/21 08/05/23 (Colace) mirtazapine 15 mg disintegrating 15 mg PO HS 08/04/21 08/05/23 tablet (Remeron SolTab) polyethylene glycol 3350 17 gram 17 g PO DAILY PRN Constipation 08/04/21 08/05/23 oral powder packet (Miralax) aspirin 81 mg tablet,delayed 81 mg PO QAM 10/29/21 08/05/23 release ergocalciferol (vitamin D2) 1,250 50,000 unit PO WK 10/29/21 08/05/23 mcg (50,000 unit) capsule hydrocodone 5 mg-acetaminophen 325 1 tab PO Q8 PRN Pain 10/29/21 08/05/23 mg tablet nystatin 100,000 unit/gram topical 1 applic topical TID PRN irritation 10/29/21 08/05/23 powder zolpidem 5 mg tablet (Ambien) 5 mg PO HS PRN Sleep 10/29/21 08/05/23 albuterol sulfate 0.63 mg/3 mL 0.63 mg inhalation Q4H PRN sob 09/27/22 08/05/23 solution for nebulization fluoxetine 10 mg tablet 10 mg PO QAM 09/27/22 08/05/23 furosemide 20 mg tablet 20 mg PO 3XWK 09/27/22 08/05/23 Previous Rx's Medication Instructions Recorded omeprazole 20 mg capsule,delayed 20 mg PO BID #60 caps 10/05/22 release fluticasone fur. 100 mcg-umeclid 1 inh inhalation QAM #60 ea 01/26/23 62.5 mcg-vilant 25 mcg inhalat.powder (Trelegy Ellipta) albuterol sulfate 90 mcg/actuation 2 inh inhalation QID PRN shortness 05/29/23 aerosol inhaler (Ventolin HFA) of breath or wheezing #18 grams Results & Data (ED) Vital Signs Vital Signs - 24 hr 08/05/23 05:39 08/05/23 05:39 08/05/23 05:40 Temperature 39.9 C H Temperature Source Oral Pulse Rate 134 H 132 H Pulse Rate from SpO2 Sensor Pulse Rhythm Regular Pulse Strength Normal Respiratory Rate 40 H Respiratory Effort / Characteristics Spontaneous Labored Short of Breath Spontaneous Labored Retracting Short of Breath Respiratory Depth Retractive Retractive Respiratory Pattern Tachypnea Tachypnea Blood Pressure 173/143 H Blood Pressure [Left Arm] Blood Pressure Mean 153 Blood Pressure Mean [Left Arm] Blood Pressure Position Sitting Pulse Oximetry 87 L Oxygen Delivery Method Room Air Oxygen Flow Rate Sepsis Recent Fever Within 48 Hours Yes Sepsis New/Unexplained Change in Mental Status N/A Sepsis Action Taken by Nursing Physician Notified 08/05/23 05:47 08/05/23 05:49 08/05/23 05:57 Temperature Temperature Source Pulse Rate 128 H Pulse Rate from SpO2 Sensor 136 H Pulse Rhythm Pulse Strength Respiratory Rate 32 H Respiratory Effort / Characteristics Respiratory Depth Respiratory Pattern Blood Pressure 202/119 H Blood Pressure [Left Arm] Blood Pressure Mean 146 Blood Pressure Mean [Left Arm] Blood Pressure Position Pulse Oximetry 96 96 97 Oxygen Delivery Method Nasal Cannula Nasal Cannula Nasal Cannula Oxygen Flow Rate 3 3 4 Sepsis Recent Fever Within 48 Hours Sepsis New/Unexplained Change in Mental Status Sepsis Action Taken by Nursing 08/05/23 06:30 08/05/23 06:50 08/05/23 07:00 Temperature 38.6 C H Temperature Source Oral Pulse Rate 112 H Pulse Rate from SpO2 Sensor 112 H Pulse Rhythm Pulse Strength Respiratory Rate 25 H Respiratory Effort / Characteristics Respiratory Depth Respiratory Pattern Blood Pressure 154/86 H 151/97 H Blood Pressure [Left Arm] Blood Pressure Mean 108 116 Blood Pressure Mean [Left Arm] Blood Pressure Position Pulse Oximetry 98 Oxygen Delivery Method Oxygen Flow Rate Sepsis Recent Fever Within 48 Hours Sepsis New/Unexplained Change in Mental Status Sepsis Action Taken by Nursing 08/05/23 07:00 08/05/23 07:31 08/05/23 07:31 Temperature Temperature Source Pulse Rate 108 H 102 H Pulse Rate from SpO2 Sensor 98 H 103 H Pulse Rhythm Pulse Strength Respiratory Rate 15 18 Respiratory Effort / Characteristics Respiratory Depth Respiratory Pattern Blood Pressure 130/60 Blood Pressure [Left Arm] Blood Pressure Mean 85 Blood Pressure Mean [Left Arm] Blood Pressure Position Pulse Oximetry 97 97 Oxygen Delivery Method Oxygen Flow Rate Sepsis Recent Fever Within 48 Hours Sepsis New/Unexplained Change in Mental Status Sepsis Action Taken by Nursing 08/05/23 08:00 08/05/23 08:00 08/05/23 08:30 Temperature Temperature Source Pulse Rate 103 H 98 H Pulse Rate from SpO2 Sensor 99 H 99 H Pulse Rhythm Pulse Strength Respiratory Rate 20 20 Respiratory Effort / Characteristics Respiratory Depth Respiratory Pattern Blood Pressure 143/110 H Blood Pressure [Left Arm] Blood Pressure Mean 125 Blood Pressure Mean [Left Arm] Blood Pressure Position Pulse Oximetry 97 96 Oxygen Delivery Method Oxygen Flow Rate Sepsis Recent Fever Within 48 Hours Sepsis New/Unexplained Change in Mental Status Sepsis Action Taken by Nursing 08/05/23 08:30 08/05/23 09:00 08/05/23 09:00 Temperature Temperature Source Pulse Rate 100 H Pulse Rate from SpO2 Sensor 98 H Pulse Rhythm Pulse Strength Respiratory Rate 20 Respiratory Effort / Characteristics Respiratory Depth Respiratory Pattern Blood Pressure 130/77 144/77 H Blood Pressure [Left Arm] Blood Pressure Mean 93 110 Blood Pressure Mean [Left Arm] Blood Pressure Position Pulse Oximetry 96 Oxygen Delivery Method Oxygen Flow Rate Sepsis Recent Fever Within 48 Hours Sepsis New/Unexplained Change in Mental Status Sepsis Action Taken by Nursing 08/05/23 09:30 08/05/23 09:30 08/05/23 10:00 Temperature Temperature Source Pulse Rate 89 86 Pulse Rate from SpO2 Sensor 87 86 Pulse Rhythm Pulse Strength Respiratory Rate 22 21 Respiratory Effort / Characteristics Respiratory Depth Respiratory Pattern Blood Pressure 117/74 Blood Pressure [Left Arm] Blood Pressure Mean 99 Blood Pressure Mean [Left Arm] Blood Pressure Position Pulse Oximetry 95 96 Oxygen Delivery Method Oxygen Flow Rate Sepsis Recent Fever Within 48 Hours Sepsis New/Unexplained Change in Mental Status Sepsis Action Taken by Nursing 08/05/23 10:00 08/05/23 10:03 08/05/23 10:26 Temperature Temperature Source Pulse Rate 87 93 H Pulse Rate from SpO2 Sensor Pulse Rhythm Pulse Strength Respiratory Rate 18 Respiratory Effort / Characteristics Respiratory Depth Respiratory Pattern Blood Pressure 135/77 Blood Pressure [Left Arm] Blood Pressure Mean 101 Blood Pressure Mean [Left Arm] Blood Pressure Position Pulse Oximetry 98 Oxygen Delivery Method Oxygen Flow Rate Sepsis Recent Fever Within 48 Hours Sepsis New/Unexplained Change in Mental Status Sepsis Action Taken by Nursing 08/05/23 10:27 08/05/23 10:30 08/05/23 10:30 Temperature Temperature Source Pulse Rate 93 H Pulse Rate from SpO2 Sensor 93 H Pulse Rhythm Pulse Strength Respiratory Rate 21 Respiratory Effort / Characteristics Respiratory Depth Respiratory Pattern Blood Pressure 152/86 H Blood Pressure [Left Arm] 135/77 Blood Pressure Mean 127 Blood Pressure Mean [Left Arm] 96 Blood Pressure Position Pulse Oximetry 97 Oxygen Delivery Method Oxygen Flow Rate Sepsis Recent Fever Within 48 Hours Sepsis New/Unexplained Change in Mental Status Sepsis Action Taken by Nursing 08/05/23 11:00 08/05/23 11:00 08/05/23 11:30 Temperature Temperature Source Pulse Rate 90 85 Pulse Rate from SpO2 Sensor 90 85 Pulse Rhythm Pulse Strength Respiratory Rate 21 21 Respiratory Effort / Characteristics Respiratory Depth Respiratory Pattern Blood Pressure 113/86 Blood Pressure [Left Arm] Blood Pressure Mean 96 Blood Pressure Mean [Left Arm] Blood Pressure Position Pulse Oximetry 98 98 Oxygen Delivery Method Oxygen Flow Rate Sepsis Recent Fever Within 48 Hours Sepsis New/Unexplained Change in Mental Status Sepsis Action Taken by Nursing 08/05/23 11:30 Temperature Temperature Source Pulse Rate Pulse Rate from SpO2 Sensor Pulse Rhythm Pulse Strength Respiratory Rate Respiratory Effort / Characteristics Respiratory Depth Respiratory Pattern Blood Pressure 107/70 Blood Pressure [Left Arm] Blood Pressure Mean 80 Blood Pressure Mean [Left Arm] Blood Pressure Position Pulse Oximetry Oxygen Delivery Method Oxygen Flow Rate Sepsis Recent Fever Within 48 Hours Sepsis New/Unexplained Change in Mental Status Sepsis Action Taken by Nursing Laboratory Data 08/05/23 05:42 08/05/23 05:42 Lab Results 08/05/23 08/05/23 08/05/23 Range/Units 05:41 05:42 05:50 WBC 4.28 L (4.8-10.8) K/ul RBC 4.67 (4.20-5.40) M/uL Hgb 14.0 (12.0-16.0) g/dl POC Hgb 14.6 (12.0-16.0) g/dl Hct 43.6 (37.0-47.0) % POC Hct 43 (37-47) % MCV 93.4 (80.0-100.0) fL MCH 30.0 (25.0-34.0) pg MCHC 32.1 (32.0-36.0) g/dL RDW Std Deviation 46.4 H (36.4-46.3) fL RDW Coeff of [place] 13.6 (11.5-14.5) % Plt Count 88 L (130-400) K/uL MPV 11.5 (9.4-12.4) fL Immature Gran % (Auto) 0.7 % Neut % (Auto) 86.4 % Lymph % (Auto) 4.7 % [place] % (Auto) 7.7 % Eos % (Auto) 0.0 % Baso % (Auto) 0.5 % Neut # (Auto) 3.70 (1.40-6.50) K/uL Lymph # (Auto) 0.20 L (1.20-3.40) K/uL [place] # (Auto) 0.33 (0.11-0.59) K/uL Eos # (Auto) 0.00 (0.00-0.50) K/uL Baso # (Auto) 0.02 (0.00-0.20) K/uL Immature Gran # (Auto) 0.03 (0.01-0.20) K/uL Platelet Estimate Decreased L (Normal) VBG pH 7.34 L (7.36-7.41) VBG pCO2 45 (38-50) mmHg VBG pO2 96 mmHg VBG HCO3 24 mmol/L VBG O2 Saturation 97.7 % VBG Base Excess -1.7 mEq/L POC Sodium 135 (135-144) mmol/L Sodium 135 L (136-145) mmol/L POC Potassium 3.7 (3.3-5.0) mmol/L Potassium 3.7 (3.5-5.1) mmol/L POC Chloride 101 (101-112) mmol/L Chloride 100 (98-107) mmol/L Carbon Dioxide 25 (21-32) mmol/L POC Total CO2 23 L (24-31) mmol/L Anion Gap 10 (3-11) POC Anion Gap 15.0 L (16-25) mmol/L POC BUN 18 (7-18) mg/dl BUN 19 (6-23) mg/dl Creatinine 1.20 (0.6-1.2) mg/dl POC Creatinine 1.2 (0.6-1.3) mg/dl Est Cr Clr Drug Dosing 32.8 ml/min Est GFR ( Amer) 47.1 ml/min Est GFR (Non-Af Amer) 40.6 ml/min BUN/Creatinine Ratio 15.8 (10-20) Glucose 261 H (70-99(Fasting)) mg/dl POC Glucose (other) 270 H (70-99) mg/dl Lactate 1.6 (0.4-2.0) mmol/L Calcium 8.9 (8.6-10.3) mg/dl POC Ioniz Calcium De 1.07 L (1.12-1.32) mmol/l Magnesium 1.9 (1.7-2.4) mg/dl Total Bilirubin 1.1 H (0.2-1.0) mg/dl Direct Bilirubin 0.4 H (0-0.2) mg/dl AST 55 H (13-39) U/L ALT 31 (7-52) U/L Alkaline Phosphatase 87 (34-104) U/L Troponin I High Sens 45.3 H (0-14) pg/ml Total Protein 6.8 (6.0-8.3) gm/dl Albumin 3.8 (3.4-5.0) gm/dl Procalcitonin 0.43 (0-0.5) ng/ml SARS-CoV-2 (PCR) NEGATIVE (Negative) Influenza Type A (PCR) Negative (Neg) Influenza Type B (PCR) Negative (Neg) RSV (RT-PCR) Negative (Neg) Administered Medications Amlodipine Besylate (Amlodipine Besylate 5 Mg Tab) 5 mg PO [facility] Stop: 09/04/23 14:29 Last Admin: 08/05/23 17:35 Dose: 5 mg Documented By: VERN Aspirin (Aspirin 81 Mg Ectab) 81 mg PO [facility] Stop: 09/04/23 14:29 Last Admin: 08/05/23 17:34 Dose: 81 mg Documented By: VERN Fluoxetine HCl (Fluoxetine Hcl 10 Mg Cap) 10 mg PO [facility] Stop: 09/04/23 14:29 Last Admin: 08/05/23 17:33 Dose: 10 mg Documented By: VERN Fluticasone Furoate (Fluticasone Furoate 100mcg 14 Puffs/Inhaler) 1 puffs INH [facility] Stop: 09/04/23 14:29 Last Admin: 08/05/23 17:40 Dose: 1 puffs Documented By: VERN Lactated Ringer's (Lr) 1,000 mls @ 60 mls/hr IV .[id number] [facility] Stop: 08/06/23 17:49 Last Admin: 08/05/23 15:27 Dose: 60 mls/hr Documented By: VERN Piperacillin Sod/Tazobactam (Sod 4.5 gm/ Dextrose) 100 mls @ 200 mls/hr IV Q8H TONG; Protocol Stop: 08/12/23 13:59 Last Infusion: 08/05/23 22:26 Dose: Infused Documented By: Admin: 08/05/23 21:40 Dose: 200 mls/hr Documented By: Infusion: 08/05/23 19:23 Dose: Infused Documented By: Admin: 08/05/23 15:28 Dose: 200 mls/hr Documented By: VERN Diltiazem HCl 125 mg/ Dextrose 125 mls @ 15 mls/hr IV .Q8H20M TONG; Protocol Stop: 09/04/23 16:59 Last Admin: 08/06/23 00:58 Dose: 15 mg/hr, 15 mls/hr Documented By: KATH Co-signed By: KENDRICK Titration: 08/06/23 00:58 Dose: Infused Documented By: CLC Co-signed By: KENDRICK Titration: 08/05/23 19:04 Dose: 15 mg/hr, 15 mls/hr Documented By: CLC Co-signed By: SMM Titration: 08/05/23 18:41 Dose: 15 mg/hr, 15 mls/hr Documented By: TORSTEN Co-signed By: GPF Titration: 08/05/23 17:42 Dose: 10 mg/hr, 10 mls/hr Documented By: VERN Co-signed By: RAÚL Admin: 08/05/23 17:02 Dose: 5 mg/hr, 5 mls/hr Documented By: VERN Co-signed By: RAÚL Heparin Sodium/Dextrose (Heparin Sodium/Dextrose) 25,000 units in 500 mls @ 15 mls/hr IV .Q24H TONG; Protocol Stop: 09/04/23 17:14 Last Titration: 08/06/23 00:59 Dose: 750 units/hr, 15 mls/hr Documented By: CLC Co-signed By: KENDRICK Titration: 08/05/23 19:00 Dose: 750 units/hr, 15 mls/hr Documented By: CLC Co-signed By: SMM Admin: 08/05/23 17:19 Dose: 750 units/hr, 15 mls/hr Documented By: VERN Co-signed By: RAÚL Isosorbide Dinitrate (Isosorbide Dinitrate 20 Mg Tab) 20 mg PO TID TONG Stop: 09/04/23 14:29 Last Admin: 08/05/23 21:48 Dose: 20 mg Documented By: Admin: 08/05/23 17:34 Dose: 20 mg Documented By: VERN Melatonin (Melatonin 3 Mg Tab) 3 mg PO HS PRN PRN Reason: Sleep Stop: 09/04/23 20:00 Last Admin: 08/05/23 21:43 Dose: 3 mg Documented By: KATH Metoprolol Succinate (Metoprolol Succ 25mg Ext Rel Tab) 12.5 mg PO QAM TONG Stop: 09/04/23 14:29 Last Admin: 08/05/23 17:34 Dose: Not Given Documented By: VERN Metoprolol Tartrate (Metoprolol Tartrate 1 Mg/Ml Vial) 5 mg IV Q5M PRN PRN Reason: Tachycardia Stop: 09/04/23 16:29 Last Admin: 08/05/23 16:45 Dose: 5 mg Documented By: VERN Metoprolol Tartrate (Metoprolol Tartrate 25 Mg Tab) 12.5 mg PO HS TONG Stop: 09/04/23 20:59 Last Admin: 08/05/23 21:46 Dose: 12.5 mg Documented By: KATH Mirtazapine (Mirtazapine Soltab 15 Mg) 15 mg PO HS TONG Stop: 09/04/23 20:59 Last Admin: 08/05/23 21:46 Dose: 15 mg Documented By: KATH Pantoprazole Sodium (Pantoprazole 40 Mg Tab) 40 mg PO BID TONG Stop: 09/04/23 20:59 Last Admin: 08/05/23 21:47 Dose: 40 mg Documented By: KATH Simvastatin (Simvastatin 20 Mg Tab) 20 mg PO HS TONG Stop: 09/04/23 20:59 Last Admin: 08/05/23 21:48 Dose: 20 mg Documented By: KATH Umeclidinium/Vilanterol (Umeclidinium/Vilanterol 62.5/25mcg 7 Puffs/Inhaler) 1 puffs INH QAM TONG Stop: 09/04/23 14:29 Last Admin: 08/05/23 17:38 Dose: 1 puffs Documented By: VERN Discontinued Medications Heparin Sodium (Porcine) (Heparin Sod 5,000 Unit/0.5 Ml Vial) 5,000 units SQ Q12H TONG Stop: 09/04/23 13:59 Last Admin: 08/05/23 15:28 Dose: 5,000 units Documented By: VERN Acetaminophen (Ofirmev) 1,000 mg in 100 mls @ 400 mls/hr IV NOW STA Stop: 08/05/23 06:07 Last Infusion: 08/05/23 06:18 Dose: Infused Documented By: Admin: 08/05/23 06:00 Dose: 400 mls/hr Documented By: EDILSON Piperacillin Sod/Tazobactam Sod (Zosyn) 4.5 gm in 100 mls @ 200 mls/hr IV NOW ONE Stop: 08/05/23 07:01 Last Infusion: 08/05/23 10:35 Dose: Infused Documented By: Admin: 08/05/23 06:47 Dose: 200 mls/hr Documented By: NAZIA Magnesium Sulfate/Dextrose (Magnesium Sulfate / D5w) 1 gm in 100 mls @ 50 mls/hr IV Q2H TONG Stop: 08/05/23 20:44 Last Infusion: 08/05/23 21:25 Dose: Infused Documented By: Admin: 08/05/23 19:20 Dose: 50 mls/hr Documented By: Infusion: 08/05/23 19:04 Dose: Infused Documented By: Admin: 08/05/23 17:04 Dose: 50 mls/hr Documented By: VERN Metoprolol Tartrate (Metoprolol Tartrate 1 Mg/Ml Vial) Confirm Administered Dose 5 mg IV .STK-MED ONE Stop: 08/05/23 16:31 Last Admin: 08/05/23 16:39 Dose: 5 mg Documented By: VERN Metoprolol Tartrate (Metoprolol Tartrate 1 Mg/Ml Vial) Confirm Administered Dose 5 mg IV .STK-MED ONE Stop: 08/05/23 16:38 Last Admin: 08/05/23 16:33 Dose: 5 mg Documented By: VERN Potassium Chloride (Potassium Chloride Crtab 20 Meq Tabcr) 40 meq PO NOW STA Stop: 08/05/23 16:46 Last Admin: 08/05/23 17:33 Dose: 40 meq Documented By: VERN Discharge Plan Visit Data Chief Complaint: Shortness of Breath/Dyspnea ED Provider: Elizabeth Melgar Discharge Problem: Hypoxia, Right lower lobe pneumonia, Fall Patient Disposition: Admitted As Inpatient Discharge Instructions Interventions: ED Discharge Assessment Last Done: 08/05/23 13:29 Discharge Problem: Right lower lobe pneumonia Qualifiers: Pneumonia type: due to unspecified organism Qualified Code(s): J18.9 - Pneumonia, unspecified organism Fall Qualifiers: Encounter type: initial encounter Qualified Code(s): W19.XXXA - Unspecified fall, initial encounter
--- NOTE | 2023-08-05 07:26 | XRay Report ---
XR chest 1V portable HISTORY: Sepsis COMPARISON: Chest 10/29/2021. FINDINGS: No pneumothorax. The heart remains mildly enlarged. Trace bilateral pleural effusions persi st. Right basilar linear densities are noted. This favors subsegmental atelectasis. There is mild int erstitial pulmonary edema. There are calcifications within the aortic knob. A cardiac valve prosthesi s is noted. IMPRESSION: 1. Mild interstitial pulmonary edema which has progressed. 2. Right basilar linear densities favor subsegmental atelectasis. A pneumonia could also have a simil ar appearance. ACT 112: Negative or not required by law. Electronically signed by: Kaiden Yung M.D. 08/05/2023 7:25 AM
[2023-08-05 07:53] LABS: Troponin I High Sensitivity 45.3 pg/ml (0-14)
[2023-08-05] MEDS ORDERED: ONDANSETRON INJ 2 MG/ML 2 ML VIAL IV PRN (08:19)
[2023-08-05] MEDS ORDERED: ALUMINUM/MAGNESIUM SUSP 30 ML UDC PO PRN (08:19)
[2023-08-05] MEDS ORDERED: MAGNESIUM HYDROXIDE SUSP 30 ML UDC PO PRN (08:19)
[2023-08-05] MEDS ORDERED: POLYETHYLENE (MIRALAX) 17 GM PACK PO PRN (08:19)
--- NOTE | 2023-08-05 08:47 | History & Physical Report ---
Date of Service August 05, 2023 Assessment & Plan (1) Pneumonia: Plan Patient with significant history of smoking tobacco and also with history of COPD who reports occasional choking on food presented with shortness of breath for last 3 days and a fall last night/tripped over something in the dark. She is being managed for the following: RLL pneumonia, likely aspiration, ? community aquired Sepsis POA: Secondary to above. Temperature/respiratory rate elevated at presentation. Patient presenting with shortness of breath for 2 to 3 days, associated cough with greenish sputum. Patient reports choking on food occasionally. Respiratory viral screen negative. Admitting temperature/respiratory rate elevated, patient was hypoxic on room air [see HPI, does not use home O2] presentation. Admitting CXR with right basilar atelectasis, ? Pneumonia. Patient received Zosyn in the ED, reported improvement in her symptoms at bedside exam. Patient is clinically dry on exam, will use gentle IV fluid. Get CT chest, continue with Zosyn, follow admitting blood culture. Speech consult. Demand ischemia: Troponin elevated at 45.3 at presentation,EKG with sinus tachycardia. Demand ischemia likely secondary to tachycardia secondary to infection. Trend troponin. Telemetry monitoring. Patient with no chest pain. Other chronic medical conditions: CAD/HTN//HLD/COPD -continue with/resume home meds as and when able. DVT prophylaxis: Heparin subcu CODE STATUS: DNR/DNI History of Present Illness Chief Complaint: Shortness of breath, fall Primary Care Provider: Klaus Douglas MD 88-year-old lady with PMH of COPD/mild emphysema, smoking 2 packs a day for 60 years/quit 7 years ago, HTN, HLD, CAD, bilateral carotid artery stenosis, severe aortic stenosis, stenosis of left vertebral artery, status post TAVR, LBBB, macular degeneration of right eye, GERD, CKD stage IIIb presented to the ED with complaint of worsening shortness of breath for 2-3 days and fall the night prior to arrival. Per discussion with ER physician, patient was saturating in the 60s on room air at EMS arrival, improved on nasal cannula oxygen, was saturating in low 80s in the ED on room air at presentation. Patient reports worsening shortness of breath since last 2 to 3 days, cough with greenish sputum, also reports occasional choking on the food. Patient reports feeling weak and tired. Is dry on exam. Patient reports not being able to sleep okay lately, went up to go to recliner last night/didn't turn on light while doing so/tripped on something and fell on the right side/did not hit her head/is not hurting anywhere per patient. She could not get up/her could not help her get up and hence they decided to call EMS. Patient denies chest pain/palpitation/sore throat. Patient denies nausea or vomiting. Patient reports baseline appetite. Reports constipation and denies pain or burning with passing urine. Denies any belly pain. Smoking history2 packs a day for 60 years, quit 7 years ago. Denies use of alcohol or recreational drugs. DNR/DNI Plan of care discussed with the patient, she voiced understanding. Answered all her questions. Allergies Allergy/AdvReac Type Severity Reaction Status Date / Time atenolol Allergy Intermediate RASH AND Verified 12/05/22 13:33 ITCHING-TAKES TOPROL-XL AT HOME Sulfa (Sulfonamide Allergy Mild "SULFA Verified 12/05/22 13:33 Antibiotics) DRUGS": UNKNOWN lisinopril AdvReac Intermediate COUGH Verified 12/05/22 13:33 Home Medications Medication Instructions Recorded Confirmed Type amlodipine 10 mg tablet 5 mg PO QAM 12/31/18 08/05/23 History meclizine 25 mg chewable tablet 25 mg PO TID PRN Anxiety 12/31/18 08/05/23 History isosorbide dinitrate 20 mg tablet 20 mg PO TID 05/29/19 08/05/23 History metoprolol succinate 25 mg 12.5 mg PO QAM 05/29/19 08/05/23 History tablet,extended release 24 hr simvastatin 20 mg tablet 20 mg PO HS 05/29/19 08/05/23 History vit C 250 mg-vit E 90 mg-zinc 40 1 tab PO BID 05/29/19 08/05/23 History mg-copper 1 sr-hhodpr-wvrmik capsule (PreserVision AREDS-2) ondansetron 4 mg disintegrating 4 - 8 mg PO Q8H PRN Nausea 05/16/20 08/05/23 History tablet docusate sodium 100 mg capsule 100 mg PO QAM 08/04/21 08/05/23 History (Colace) mirtazapine 15 mg disintegrating 15 mg PO HS 08/04/21 08/05/23 History tablet (Remeron SolTab) polyethylene glycol 3350 17 gram 17 g PO DAILY PRN Constipation 08/04/21 08/05/23 History oral powder packet (Miralax) aspirin 81 mg tablet,delayed 81 mg PO QAM 10/29/21 08/05/23 History release ergocalciferol (vitamin D2) 1,250 50,000 unit PO WK 10/29/21 08/05/23 History mcg (50,000 unit) capsule hydrocodone 5 mg-acetaminophen 325 1 tab PO Q8 PRN Pain 10/29/21 08/05/23 History mg tablet nystatin 100,000 unit/gram topical 1 applic topical TID PRN irritation 10/29/21 08/05/23 History powder zolpidem 5 mg tablet (Ambien) 5 mg PO HS PRN Sleep 10/29/21 08/05/23 History albuterol sulfate 0.63 mg/3 mL 0.63 mg inhalation Q4H PRN sob 09/27/22 08/05/23 History solution for nebulization fluoxetine 10 mg tablet 10 mg PO QAM 09/27/22 08/05/23 History furosemide 20 mg tablet 20 mg PO 3XWK 09/27/22 08/05/23 History omeprazole 20 mg capsule,delayed 20 mg PO BID #60 caps 10/05/22 08/05/23 Rx release fluticasone fur. 100 mcg-umeclid 1 inh inhalation QAM #60 ea 01/26/23 08/05/23 Rx 62.5 mcg-vilant 25 mcg inhalat.powder (Trelegy Ellipta) albuterol sulfate 90 mcg/actuation 2 inh inhalation QID PRN shortness 05/29/23 08/05/23 Rx aerosol inhaler (Ventolin HFA) of breath or wheezing #18 grams Past Med/Surg History Medical History Carotid stenosis CKD (chronic kidney disease), stage III COPD (chronic obstructive pulmonary disease) Coronary artery disease Dyslipidemia Dyspnea GERD (gastroesophageal reflux disease) Hip dislocation, left HTN (hypertension) Left bundle branch block Macular degeneration Multiple pulmonary nodules determined by computed tomography of lung Osteoporosis Transient ischemic attack (TIA) Traumatic subarachnoid hemorrhage Vertebral artery stenosis Vertigo Surgical History Fusion of spine H/O hernia repair History of cardiac catheterization History of cataract surgery History of cholecystectomy History of colonoscopy History of hysterectomy History of tooth extraction History of total hip arthroplasty S/P revision 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) S/P tonsillectomy and adenoidectomy Family History Other No family history of adverse response to anesthesia Stroke Social History Smoking Status: Former smoker Second Hand Exposure: Yes (son smokes); Do You Dip or Chew Tobacco: No; Hx Alcohol Use: No Hx Substance Use: No Preferred Language: Nepali Communication Ability: Effective Communications Attendant Required: No Beliefs That Will Affect Care: None marital status: Current Living Situation: Spouse Feels Safe at Home: Yes Assistive Devices: Brace/Splint/Immobilizer, Cane, Glasses and Walker Review of Systems Review of Systems: Negative otherwise mentioned in HPI. Physical Exam Physical Exam: GENERAL: Alert and oriented x3. NAD, on 3L NC O2. Appears ill/frail/weak. HEENT: No pallor, no icterus. Pupils equal, round and reactive to light. Oral mucosa dry. NECK: No JVD, no neck masses. HEART: S1 and S2 heard. Regular rate and rhythm. Tachycardia. + murmur, no gallop. RESPIRATORY SYSTEM: Normal AP diameter. No accessory muscle use. No wheezing, RLL crackles ABDOMEN: Soft, bowel sounds present, nontender, no distention. CENTRAL NERVOUS SYSTEM: No facial droop. Speech is clear. Obeys simple commands. Moves extremities. EXTREMITIES: No edema, no erythema seen. Results & Data Results & Data Vital Signs (Past 12 Hours) Vital Signs Temp Pulse Resp BP Pulse Ox O2 Del Method O2 Flow Rate 08/05/23 06:50 38.6 C H 08/05/23 06:30 112 H 25 H 154/86 H 98 08/05/23 05:57 97 Nasal Cannula 4 08/05/23 05:49 128 H 32 H 202/119 H 96 Nasal Cannula 3 08/05/23 05:47 96 Nasal Cannula 3 08/05/23 05:40 132 H 08/05/23 05:39 39.9 C H 134 H 40 H 173/143 H 87 L Room Air
--- NOTE | 2023-08-05 09:21 | CT Scan Report ---
CT chest diagnostic wo con CT DOSE: 433.91 mGy.cm HISTORY: resp distress, ? pna TECHNIQUE: Multiaxial CT images of the chest were performed without contrast. A dose lowering techni que was utilized adhering to the principles of ALARA. COMPARISON: Chest CTA 10/29/2021. FINDINGS: Trace mucoid material within the trachea and partial mucoid opacification of the distal bro nchi. No pneumothorax. Trace bilateral pleural effusions are noted. Limited views of the upper abdome n demonstrate a normal liver and spleen. Mild fat stranding surrounding the adrenal glands. Prior cho lecystectomy. Normal esophagus. No mediastinal or hilar lymphadenopathy. An aortic valve prosthesis i s noted. The heart is mildly enlarged. No pericardial effusion. Calcified plaque within the normal ca liber thoracic aorta. No acute fractures identified. No pneumothorax. Calcified granuloma within the left upper lobe. There is mild interlobular septal thickening consistent with mild congestive change. Small bibasilar densities favor subsegmental atelectasis. A pneumonia could also have a similar appe arance but is considered less likely. IMPRESSION: 1. Cardiomegaly with trace bilateral pleural effusions and mild interstitial pulmonary edema. 2. Small bibasilar densities favor subsegmental atelectasis. A pneumonia could also have a similar ap pearance but is considered less likely. ACT 112: Negative or not required by law. Electronically signed by: Kaiden Yung M.D. 08/05/2023 9:19 AM
--- OUTSIDE RECORDS SUMMARY | 2023-08-05 10:00 | External Medical Summary ---
Author Name Unknown Address Unknown Organization [id number]:[facility] [place] - [facility] [address] [facility] [id number] Laboratory Report Ordering Provider Test Date Status JONH EMMANUELLEONIDAS 07/23/2023 09:46:40 Final Observation Date Value Abnormality Reference (Units ) Status WBC, Total 07/23/2023 09:46:40 8.04 4.00-10.80 (K/uL) Final RBC 07/23/2023 09:46:40 4.51 3.85-5.15 (M/uL) Final Hemoglobin 07/23/2023 09:46:40 13.7 12.0-15.3 (g/dL) Final HCT 07/23/2023 09:46:40 45.7 Above high normal 36.0-45.2 (%) Final MCV 07/23/2023 09:46:40 101.3 81.5-97.5 (fL) Final MCH 07/23/2023 09:46:40 30.4 27.0-34.0 (pg) Final MCHC 07/23/2023 09:46:40 30.0 32.0-36.0 (g/dL) Final RDW 07/23/2023 09:46:40 13.8 11.5-15.5 (%) Final Platelets 07/23/2023 09:46:40 182 140-400 (K/uL) Final MPV 07/23/2023 09:46:40 11.3 6.6-11.1 (fL) Final Nucleated erythrocytes/100 leukocytes [Ratio] in Blood by Automated count 07/23/2023 09:46:40 0 <=0 (/100 WBCs) Final Performing Location [facility] - [address] [place] [address]
--- OUTSIDE RECORDS SUMMARY | 2023-08-05 10:00 | External Medical Summary | Summary of Care ---
Author Name Unknown Organization [facility] Address [address] [facility] [address] Phone [phone] Care Team Providers Care Logistics Technician Name Role Phone Klaus Douglas MD Primary Care Provider [phone]- [phone] Reason for Visit * Reason Comments eRx-Medication Refill Encounter Details Date Type Department Care Team (Late st Contact Info) Description 07/22/2023 Refill Gastroenterology, [facility] [address] [facility] [place] [address] Елена Matson CRNP [address] [facility] [place] [address] Encounter for long-term (current) use of medications* Allergies Active Allergy Reactions Criticality Noted Date Comments Atenolol 06/15/1999 stomach pain Lisinopril 06/27/2010 hyperkalemia Sulfa Antibiotics 2020 Sulfamethoxazole 10/19/2006 Tingling, itch, s.o.b. documented as of this encounter (statuses as of 07/23/2023) Medications Medication Sig Dispensed Refills Start Date End Date Status Multiple Vitamins-Minerals (PRESERVISION AREDS 2) Capsule Take 1 Capsule by mouth in the morning and 1 Capsule before bedtime. 0 Active Ipratropium-Albuter ol 20-100 MCG/ACT Inhalation Aerosol Solution Inhale 1 Puff by mouth in the morning and 1 Puff at noon and 1 Puff in the evening and 1 Puff before bedtime. 0 Active Albuterol Sulfate HFA 108 (90 Base) MCG/ACT Inhalation Aerosol Solution Inhale 2 Puffs by mouth every 6 hours as needed for Shortness of Breath or Wheezing. 0 Active Acetaminophen 325 MG Oral Tablet (Tylenol) Take 3 Tabs by mouth every 8 hours. 30 Tab 0 05/04/2021 Active Polyethylene Glycol 3350 17 GM Oral Packet (Miralax) Take 1 Packet by mouth daily. 14 Each 0 05/04/2021 Active Aspirin EC 81 MG Oral Tablet Delayed Release Take 1 Tab by mouth daily. 30 Tab 11 05/30/2021 Active Nystatin 245397 UNIT/GM External Powder (Nystop) Apply topically to affected area 3 times a day. Apply to affected area of right lower abdomen for up to 4 weeks. 45 g 0 08/01/2021 Active Fluticasone-Umeclid in-Vilant 100-62.5-25 MCG/INH Aerosol Powder Breath Activated (TRELEGY ellipta) Inhale 1 Puff by mouth in the morning. 0 Active Meclizine HCl 25 MG Oral Tablet (Antivert) Take 1 Tablet by mouth 3 times a day as needed. 0 Active Mirtazapine 15 MG Oral Tablet (Remeron) Take 1 Tablet by mouth at bedtime. 0 Active Amoxicillin 500 MG Oral Capsule (Amoxil) 4 caps 1 hour prior to dental exam 12 Capsule 3 06/23/2022 Active amLODIPine Besylate 10 MG Oral Tablet (Norvasc) Take by mouth 0.5 Tablets in the morning. 45 Tablet 3 06/23/2022 Active Ondansetron 4 MG Oral Tablet Disintegrating (Zofran)Indications :S/P laparoscopic cholecystectomy,Miguel Ángel sea TAKE 1-2 TABLETS BY MOUTH EVERY 8 HOURS NEEDED FOR NAUSEA 30 Tablet 3 08/24/2022 Active Vitamin D (Ergocalciferol) 1.25 MG (92351 UT) Oral Capsule (Drisdol)Indication s:Vitamin D deficiency TAKE 1 CAPSULE BY MOUTH ONE TIME PER WEEK 12 Capsule 3 10/24/2022 Active Furosemide 20 MG Oral Tablet (Lasix) TAKE BY MOUTH 1 TABLET ONCE A DAY ON SUNDAY, SUNDAY, AND SUNDAY ONLY . 15 Tablet 1 03/19/2023 Active Isosorbide Dinitrate 20 MG Oral Tablet (Isordil)Indication s:Essential hypertension with goal blood pressure less than 140/90,Diastolic dysfunction TAKE 1 TABLET BY MOUTH EVERY MORNING TAKE 1 TABLET AT NOON, AND 1 TAB BEFORE BEDTIME, AT 8 AM, 12 NOON, AND 4 PM 270 Tablet 2 04/24/2023 Active Metoprolol Succinate ER 25 MG Oral Tablet Extended Release 24 Hour (toPROL XL) Take 0.5 Tablets by mouth in the morning. 45 Tablet 1 05/11/2023 Active FLUoxetine HCl 10 MG Oral Capsule (PROzac) Take 1 Capsule by mouth in the morning. 90 Capsule 1 05/11/2023 Active Simvastatin 20 MG Oral Tablet (Zocor) TAKE BY MOUTH 1 TABLET IN THE EVENING. 90 Tablet 1 06/11/2023 Active Pantoprazole Sodium 20 MG Oral Tablet Delayed Release (Protonix) TAKE 1 TABLET BY MOUTH IN THE MORNING AND IN THE EVENING 180 Tablet 1 07/23/2023 Active Pantoprazole Sodium 20 MG Oral Tablet Delayed Release (Protonix) Take 1 Tablet by mouth in the morning and 1 Tablet in the evening. 180 Tablet 1 03/19/2023 07/23/20 23 Discontinued Hospital, Clinic, or Other Facility Administered Medication Ordered Dose Route Frequency Start Date End Date Status albuterol (PROVENTIL HFA) inhaler 4 PuffIndications:COPD, severe (HCC),VELIZ (dyspnea on exertion) 4 Puff IN Q4H PRN 06/29/2017 Active bevaCIZumab (Avastin) inj 1.25 mgIndications:Exudative age-related macular degeneration of right eye with active choroidal neovascularization (HCC) 1.25 mg IZ PRN 06/13/2023 06/12/2024 Active ROPivacaine (Naropin) inj 1.5 mgIndications:Exudative age-related macular degeneration of right eye with active choroidal neovascularization (HCC) 1.5 mg IJ PRN 06/13/2023 06/12/2024 Active documented as of this encounter (statuses as of 07/23/2023) Active Problems Problem Noted Date Diagnosed Date Recurrent major depressive disorder, in partial remission 07/23/2023 Exudative age-related macula r degeneration of right eye with active choroidal neovascularization 11/07/2021 LBBB (left bundle branch block) 06/29/2021 Chronic kidney disease, stage 3b 04/25/2021 Overview: Per CKD protocol COPD, group B, by GOLD 2017 classification 04/25 Overview: Per COPD GOLD Classification History of cataract extraction 04/19/2021 History of spinal surgery 04/19/2021 History of hysterectomy 04/19/2021 History of cholecystectomy 04/19/2021 History of total hip replacement 10/04/2020 Overview: Right hip/DJD Right hip/DJD S/P TAVR (transcatheter aortic valve replacement ) 08/25/2019 Numbness and tingling 06/23/2019 Stenosis of left vertebral artery 06/04/2019 Mild emphysema 02/20/2019 Severe aortic stenosis 02/20/2019 Hyperparathyroidism, secondary renal 10/10/2018 Bilateral carotid artery stenosis 02/19/2018 MARILEE (generalized anxiety disorder) 02/19/2018 Diastolic dysfunction 07/26/2017 Coronary artery disease invo lving [place] coronary artery without angina pectoris 07/26/2017 Osteoarthritis of left knee 06/07/2016 Hypertension 04/12/2016 Exudative macular degeneration 11/09/2015 Obesity, Class I, BMI 30.0-34.9 (see actual BMI) 07/03/2013 Overview: bmi= 31.86 07/03/13 Osteoporosis 02/19/2013 Stenosis of carotid artery 07/26/2012 Dyslipidemia 09/01/2009 Overview: Per Lipid Taxonomy. Vitamin D deficiency 11/21/2008 Unilateral inguinal hernia 05/30/2007 Gastroesophageal reflux disease 07/02/2001 documented as of this encounter (statuses as of 07/23/2023) Resolved Problems Problem Noted Date Diagnosed Date Resolved Date Stage 3 chronic kidney disease 11/07/2021 11/30/2021 Fall 05/04/2021 09/14/2021 Hip dislocation, left, initial encounter 05/04/2021 11/07/2021 Subdural hematoma 05/02/2021 11/07/2021 Subarachnoid hemorrhage foll owing injury, with loss of consciousness 05/02/2021 03/15/2022 Fall 04/19/2021 09/14/2021 History of surgical procedure 04/19/2021 09/14/2021 History of surgical procedure 04/19/2021 09/14/2021 Chronic obstructive pulmonary disease 07/26/2020 05/03/2021 Overview: Per COPD GOLD Classification Chronic kidney disease, stage III (moderate) 9 05/03/2021 Overview: Per CKD protocol Uncontrolled type 2 diabetes mellitus with hyperglycemia 01/09/2019 02/20/2019 Kidney disease, chronic, sta ge IV (GFR 15-29 ml/min) 10/10/2018 10/31/2018 Benign hypertension with chr onic kidney disease, stage III 02/19/2018 08/25/2019 Abnormal CXR (chest x-ray) 06/29/2017 1 09/17/2016 Deep vein thrombosis (DVT) p rophylaxis prescribed at discharge 06/21/2016 07/18/2017 Preoperative cardiovascular examination 06/07/2016 07/18/2017 Hyperlipidemia 07/14/2015 09/14/2021 Aortic valve stenosis 07/14/20152018 Kidney disease, chronic, sta ge III (GFR 30-59 ml/min) 11/10/2013 02/28/2018 Overview: Per CKD protocol #1 UTI (urinary tract infection) 07/07/2013 04/12/2016 Shakiness 07/03/2013 04/12/2016 Tingling 07/03/2013 04/12/2016 Tobacco use disorder 07/03/2013 016 Caffeine dependence 07/03/2013 04/12/20 16 Osteoporosis 02/19/2013 02/19/2013 COPD, moderate 07/27/2011 07/30/2012 Overview: PER COPD PROTOCOL #24. LAST PFT -01/05/10 COPD, SEVERE 07/27/2011 02/20/2019 Overview: PER COPD PROTOCOL #24. LAST PFT -01/05/10 COPD with emphysema 04/18/2010 07/27/20 11 Tobacco use disorder 12/07/2009 013 HTN, goal below 140/90 07/02/200104/12 Menopause 07/02/2001 06/24/2013 Hemorrhoids, external without complications 07/02/2001 02/20/2019 Mixed dyslipidemia 09/03/2000 9 Overview: Per Lipid Taxonomy. Encounter for long-term (cur rent) use of medications 09/03/2000 06/24/2013 Overview: ICD-10 update of inactive term Tobacco use disorder 07/27/2000 001 Respiratory symptoms 07/27/2000 013 Overview: ICD-10 update of inactive term documented as of this encounter (statuses as of 07/23/2023) Immunizations Name Administration Dates Next Due COVID-19 mRNA, LNP-s, No Pre serve, 2-Dose Series (Happy Metrix) 08/24/2021,11/26/2020,11/05/2020 Covid-19, Mrna, Lnp-s, Pf, B ivalent, 30 Mcg, IM, 12 yrs and above (Pfizer) 09/28/2022 Pneumococcal Conjugate Vacc, 13 Valent (Prevnar) 11/03/2014 SEASONAL INFLUENZA, PF, 6 M & Above, IM , (FLULAVAL or FLUZONE) 06/27/2018,07/02/2017 Season Influenza, Quad, PF, Adjuvanted, 65+ Yrs, IM (FLUAD) 07/01/2020 Seasonal Influenza, Quadriva lent Hd (Fluzone Hd) 07/10/2023,07/04/2022,07/02/2021 Seasonal Influenza, Quadriva lent, No Preserve, IM 06/28/2016,06/15/2015 Seasonal Influenza, Split, I IV3, With Preserve, Inj 06/30/2014,06/24/2013,06/21/2012,2010,07/21/2010,07/13/2009,06/30/2008,1 ,07/03/2006 Seasonal Influenza, Trivalen t, Adjuvanted, 65+ yrs 06/23/2019 TD, Preservative Free 06/02/2008 TDAP (age 10 and older)(Boostrix) 04/30/2021 Varicella Zoster Vaccine (Adult) 05/30/2013 Zoster Vaccine Recombinant (Shingrix) 05/30/2013 documented as of this encounter Social History Tobacco Use Types Packs/Day Years Used Date Smoking Tobacco: Former Cigarettes 2 60 Q uit: 02/21/2015 Smokeless Tobacco: Never Alcohol Use Standard Drinks/Week Comments No 0 (1 standard drink = 0.6 oz pur e alcohol) PHQ-2 Answer Date Recorded PHQ Adult Total Score 0 09/20/2022 Hunger Vital Sign Answer Date Recorded Worried About Running Out of Food in the Last Ye ar Never true 03/02/2020 Ran Out of Food in the Last Year Never true 03/02/2020 Sex and Gender Information Value Date Recorded Sex Assigned at Female 05/23/2019 9:56 AM EDT Gender Identity Female 05/23/2019 9:56 AM EDT Sexual Orientation Straight 05/23/2019 9: 56 AM EDT Job Start Date Occupation Industry Not on file Not on file Not on file documented as of this encounter Functional Status Functional Status Response Date of Assess ment Are you deaf or do you have serious difficulty h earing? No 05/15/2019 Are you blind or do you have serious difficulty seeing, even when wearing glasses? No 05/15/2019 Do you have serious difficul ty walking or climbing stairs? (5 years old or older) Yes 05/02/2021 Do you have difficulty dress ing or bathing? (5 years old or older) No 05/15/2019 Because of a physical, menta l, or emotional condition, do you have difficulty doing errands alone such as visiting a doctor s office or shopping? (15 years old or older) No 05/15/20 19 Cognitive Status Response Date of Assessm ent Because of a physical, menta l, or emotional condition, do you have serious difficulty concentrating, remembering, or making decisions? (5 years old or older No 05/15/2019 documented as of this encounter Miscellaneous Notes * Telephone Encounter - Courtney Denis RPh - 07/23/2023 1:22 PM ESTSigned Prescriptions: Disp Refills Pantoprazole Sodium 20 MG Oral Tablet Leigh*180 Ta*1 Sig: TAKE 1 TABLET BY MOUTH IN THE MORNING AND IN THE EVENINGAuthorizing Provider: ЕЛЕНА MATSON User: COURTNEY DENIS documented in this encounter Plan of Treatment Upcoming Encounters Date Type Department Care Team (Late st Contact Info) Description 07/24/2023 2:00 PM EST Office Visit Family Practice, [place] [address] [place] [facility] [place] [address] Klaus Douglas MD [address] [place] [facility] [place] [address] 07/25/2023 8:30 AM EST Imaging Radiology, [place] [address] [place] [facility] [place] [address] 07/31/2023 3:30 PM EST Office Visit Cardiology, [facility] [address] [facility] [place] [address] Mark Singh, DO [address] [place] [address] 08/21/2023 10:00 AM EST Office Visit Podiatry [facility] [address] [facility] [place] [address] Adriana Meza DPM [address] [place] [address] 08/28/2023 11:15 AM EST Office Visit Ophthalmology, [facility] [address] [facility] [place] [address] Isaiah Valle, DO [address] [place] [address] 01/22/2024 8:40 AM EDT Office Visit [facility] [address] [place] [address] Klaus Douglas MD [address] [place] [address] Scheduled Orders Name Type Priority Associated Diagnoses Orde r Schedule VITAMIN B12 Lab Routine Encounter for long-term (current) use of medications Expected: 07/23/2023 (Approximate), Expires: 07/23/2024 Scheduled Procedures Name Priority Associated Diagnoses Date/Ti me ESOPHAGOGASTRODUODENOSCOPY ( EGD), FLEXIBLE, TRANSORAL, DIAGNOSTIC Recall Esophageal dysphagia Health Maintenance Due Date Last Done Comments Alpha-1 Antitrypsin 1953 Zoster Vaccines (2 of 2) 07/25/2013 05/30/2013, 05/18 *BISPHONATE OR OTHER ACCEPTABLE MEDICATION NEEDED FOR OSTEOPOROSIS (REFER TO SMARTSET #1146) 05/20/2019 COVID-19 Vaccine ( season) 2023 09/28/2022, 08/24/2021, 11/26/2020, Additional history exists Albumin/Creatinine Ratio 07/21/2023 07/21/2022 CKD HGB USE SMARTSET 50461 07/21/202307/21, 07/21/2022, 05/04/2021, Additional history exists CKD PHOS USE SMARTSET 50029 07/21/2023 11/12/2021, 05/03/2021, 05/02/2021, Additional history exists Depression Screening 09/20/2023 09/20/2022 O2 ASSESSMENT COMPLETED IN PAST YEAR FOR COPD 05/15/2024 07/23/2023 DTaP,Tdap,and Td Vaccines (2 - Td or Tdap) 04/30/2031 04/30/2021, 06/02/2008, 12/16/1993, Additional history exists Pneumococcal Vaccine: 65+ Years Completed 11/03/2014, 07/02/2001 Influenza Vaccine (FLU shot) Completed , 07/04/2022, 07/02/2021, Additional history exists GARDASIL-HPV IMMUNIZATION SERIES Aged Out No longer eligible based on patient's age to complete this topic Hepatitis B Aged Out No longer eligi ble based on patient's age to complete this topic MENINGOCOCCAL (MENACTRA/MENVEO) Aged Out No longer eligible based on patient's age to complete this topic documented as of this encounter Medical Devices Not on filedocumented as of this encounter Visit Diagnoses Diagnosis Encounter for long-term (current) use of medications- Primary Encounter for long-term (current) use of other medications documented in this encounter Advance Directives Latest Code Status on File Code Status Date Activated Date Inactivated Comments Full Code 04/30/2021 11:55 AM 05/04/2021 4:33 PM Question Answer Comments Discussion of Advance Direct eusebio occurred with: Not Discussed Code Status History Code Status Date Activated Date Inactivated Comments Full Code 05/15/2019 10:06 AM 05/16/2019 4:13 PM This order reflects the patients wishes and were consensually agreed upon. Care Teams Logistics Technician Relationship Specialty Start Date End Date Klaus Douglas MD [address] [place] [address] PCP - General 07/02/01 documented as of this encounter
--- OUTSIDE RECORDS SUMMARY | 2023-08-05 10:00 | External Medical Summary ---
Author Name Unknown Address Unknown Organization [id number]:LABORATORY [facility] [place] - [address] [place] [address] Laboratory Report Ordering Provider Test Date Status TINY EMMANUEL 07/23/2023 09:46:40 Final Observation Date Value Abnormality Reference (Units ) Status TSH 07/23/2023 09:46:40 1.65 0.27-4.20 (uIU/mL) Final Performing Location [facility] - [address] [place] [address]
--- OUTSIDE RECORDS SUMMARY | 2023-08-05 10:00 | External Medical Summary ---
Author Name Unknown Address Unknown Organization [id number][place] [place] [address] [place] [address] Laboratory Report Ordering Provider Test Date Status TINY EMMANUEL 07/23/2023 09:46:40 Final Observation Date Value Abnormality Reference (Units ) Status Parathyrin.intact [Mass/volume] in Serum or Plasma 07/23/2023 09:46:40 86 Above high normal 15-65 (pg/mL) Final Performing Location [facility] [place] [address] [place] [address]
--- OUTSIDE RECORDS SUMMARY | 2023-08-05 10:00 | External Medical Summary ---
Author Name Unknown Address Unknown Organization [id number]:[facility] - [address] [place] [address] Laboratory Report Ordering Provider Test Date Status TINY EMMANUEL 07/23/2023 09:46:40 Final Observation Date Value Abnormality Reference (Units ) Status Phosphate 07/23/2023 09:46:40 3.2 2.5-4.8 (m g/dL) Final Performing Location LAB[facility]ORY [facility] - [address] [place] [address]
--- OUTSIDE RECORDS SUMMARY | 2023-08-05 10:00 | External Medical Summary | Summary of Care ---
Author Name Unknown Organization [facility] Address [address] [place] [address] Phone [phone] Care Team Providers Care Senior Analyst Programmer Name Role Phone Klaus Douglas MD Primary Care Provider [phone]- [phone] Reason for Visit * Reason Comments Outpatient Testing Encounter Details Date Type Department Care Team (Late st Contact Info) Description 07/23/2023 9:50 AM EST Laboratory Laboratory, [place] [address] [place] [address] [facility] [address] [place] [address] Coronary artery disease involving [place] coronary artery of [place] heart without angina pectoris; Chronic kidney disease, stage 3b (HCC); Hot flashes; Malaise and fatigue; Encounter for long-term (current) use of medications Allergies Active Allergy Reactions Criticality Noted Date Comments Atenolol 06/15/1999 stomach pain Lisinopril 06/27/2010 hyperkalemia Sulfa Antibiotics 2020 Sulfamethoxazole 10/19/2006 Tingling, itch, s.o.b. documented as of this encounter (statuses as of 07/23/2023) Medications Medication Sig Dispensed Refills Start Date End Date Status Multiple Vitamins-Minerals (PRESERVISION AREDS 2) Capsule Take 1 Capsule by mouth in the morning and 1 Capsule before bedtime. 0 Active Ipratropium-Albuterol 20-100 MCG/ACT Inhalation Aerosol Solution Inhale 1 [...] daily. 30 Tab 11 05/30/2021 Active Nystatin 222496 UNIT/GM External Powder (Nystop) Apply topically to affected area 3 times a day. Apply to affected area of right lower abdomen for up to 4 weeks. 45 g 0 08/01/2021 Active Fluticasone-Umeclidin -Vilant 100-62.5-25 MCG/INH Aerosol Powder Breath Activated (TRELEGY [...] Active Ondansetron 4 MG Oral Tablet Disintegrating (Zofran)Indications:S /P laparoscopic cholecystectomy,Nause a TAKE 1-2 TABLETS BY MOUTH EVERY 8 HOURS NEEDED FOR NAUSEA 30 Tablet 3 08/24/2022 Active Vitamin D (Ergocalciferol) 1.25 MG (44251 UT) Oral Capsule (Drisdol)Indications: Vitamin D deficiency TAKE 1 CAPSULE BY MOUTH ONE TIME PER WEEK 12 Capsule 3 10/24/2022 Active Pantoprazole Sodium 20 MG Oral Tablet Delayed Release (Protonix) Take 1 Tablet by mouth in the morning and 1 Tablet in the evening. 180 Tablet 1 03/19/2023 Active Furosemide 20 MG Oral Tablet (Lasix) TAKE BY MOUTH 1 TABLET ONCE A DAY ON SUNDAY, SUNDAY, AND SUNDAY ONLY . 15 Tablet 1 03/19/2023 Active Isosorbide Dinitrate 20 MG Oral Tablet (Isordil)Indications: Essential hypertension with goal blood pressure less than [...] THE EVENING. 90 Tablet 1 06/11/2023 Active Zolpidem Tartrate 5 MG Oral Tablet (Ambien)Indications:P rimary insomnia Take 1 Tablet by mouth at bedtime as needed for Sleep. 10 Tablet 0 07/23/2023 Active HYDROcodone-Acetamino phen 5-325 MG Oral TabletIndications:Chr onic bilateral low back pain without sciatica Take 1 Tablet by mouth every 8 hours as needed for Pain, Mild or Pain, Severe. 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 pectoris 07/26/2017 Osteoarthritis [...] mRNA, LNP-s, No Pre serve, 2-Dose Series ([place]) 08/24/2021,11/26/2020,11/05/2020 Covid-19, Mrna, Lnp-s, Pf, B ivalent, 30 Mcg, IM, 12 yrs and above (Pfizer) 09/28/2022 Pneumococcal Conjugate Vacc, 13 Valent (Prevnar) 11/03/2014 Pneumococcal Polysaccharide PPV23 (Pneumovax) 07/02/2001 SEASONAL INFLUENZA, PF, 6 M & Above, IM , (FLULAVAL or FLUZONE) 06/27/2018,07/02/2017 Season Influenza, Quad, PF, Adjuvanted, 65+ Yrs, IM (FLUAD) 07/01/2020 Seasonal Influenza, Quadriva lent Hd (Fluzone Hd) 07/10/2023,07/04/2022,07/02/2021 Seasonal Influenza, Quadriva lent, No Preserve, IM 06/28/2016,06/15/2015 Seasonal Influenza, Split, I IV3, With Preserve, Inj 06/30/2014,06/24/2013,06/21/2012,06/27,07/21/2010,07/13/2009,06/30/2008 ,07/04/2007,07/03/2006,07/01/2003,06/18 Seasonal Influenza, Trivalen t, Adjuvanted, 65+ yrs 06/23/2019 TD - Tetanus/Diptheria (ADULT) 12/16/1993 TD, Preservative Free 06/02/2008 TDAP (age 10 [...] No 05/15/2019 documented as of this encounter Plan of Treatment Upcoming Encounters Date Type Department Care Team (Late st Contact Info) Description 07/24/2023 2:00 PM EST [facility] [place] [id number] [facility] [phone] Klaus Douglas MD [address] [place] [facility] [place] [address] 08/21/2023 10:00 AM EST Office Visit Podiatry [facility] [address] [place] [address] Adriana Meza DPM [address] [place] [address] 08/28/2023 11:15 AM EST Office Visit Ophthalmology, [facility] [address] [place] [address] Isaiah Valle DO [address] [place] [address] 01/22/2024 8:40 AM EDT Office Visit [facility] [address] [facility] [phone] Klaus Douglas MD [address] [place] [facility] [place] [address] Pending Results Name Type Priority Associated Diagnoses Date /Time BASIC METABOLIC PANEL Lab Routine Coronary artery disease involving [place] coronary artery of [place] heart without angina pectoris 07/23/2023 9:46 AM EST PHOSPHORUS Lab Routine Chronic kidney disease, stage 3b (HCC) 07/23/2023 9:46 AM EST PTH Lab Routine Chronic kidney disease, stage 3b (HCC) 07/23/2023 9:46 AM EST LIPID PANEL WITH DIRECT LDL IF TG IS HIGH Lab Routine Coronary artery disease involving [place] coronary artery of [place] heart without angina pectoris 07/23/2023 9:46 AM EST TSH WITH FREE T4 IF INDICATED Lab Routine Hot flashes Malaise and fatigue Encounter for long-term (current) use of medications 07/23/2023 9:46 AM EST CBC Lab Routine Hot flashes 07/23/2023 9:46 AM EST ALBUMIN / CREATININE RATIO, URINE Lab Routine Chronic kidney disease, stage 3b (HCC) 07/23/2023 10:01 AM EST Scheduled Procedures Name Priority Associated Diagnoses Date/Ti [...] Ratio 07/21/2023 07/21/2022 CKD HGB USE SMARTSET 34759 07/21/202307/21, 07/21/2022, 05/04/2021, Additional history exists CKD PHOS USE SMARTSET 21936 07/21/2023 1112/2021, 05/03/2021, 05/02/2021, Additional history exists Depression Screening 09/20/2023 09/20/2022 O2 ASSESSMENT COMPLETED IN PAST YEAR FOR COPD 05/15/2024 05/15/2023 DTaP,Tdap,and Td Vaccines (2 - Td or [...] as of this encounter Visit Diagnoses Diagnosis Coronary artery disease involving [place] coronary artery of [place] heart without angina pectoris Chronic kidney disease, stage 3b (HCC) Hot flashes Symptomatic menopausal or female climacteric states Malaise and fatigue Other malaise and fatigue Encounter for long-term (current) use of medications Encounter for long-term (current) use of other [...] and were consensually agreed upon. Care Teams Senior Analyst Programmer Relationship Specialty Start Date End Date Klaus Douglas MD [address] [place] [address] PCP - General 07/02/01 documented as of this encounter
--- OUTSIDE RECORDS SUMMARY | 2023-08-05 10:00 | External Medical Summary ---
Author Name Unknown Address Unknown Organization K01:[facility] - [address] [place] [address] Laboratory Report Ordering Provider Test Date Status TINY EMMANUEL 07/23/2023 10:01:48 Final Normal: <30 mg/g creatinine< br/>High: 30-300 mg/g creatinine
Very High: >300 mg/g creatinine
Nephrotic: >2200 mg/g creatinine Observation Date Value Abnormality Reference (Units ) Status Albumin, Urine 07/23/2023 10:01:48 5.25 (mg/dL) Final Creatinine, Urine 07/23/2023 10:01:48 91 (mg/dL) Final Albumin/Creatinine [Mass Ratio] in Urine 07/23/2023 10:01:48 58 Above high normal <30 (mg/g Creat) Final Performing Location [facility] - [address] [place] [address]
--- OUTSIDE RECORDS SUMMARY | 2023-08-05 10:00 | External Medical Summary | Summary of Care ---
Author Name Unknown Organization [facility] Address [address] [place] [address] Phone [phone] Care Team Providers Care Telecommunication Systems Designer Name Role Phone Cholo Franks MD Primary Care Provider [phone]- [phone] Reason for Visit * Reason Comments eRx-Medication Refill Encounter Details Date Type Department Care Team (Late st Contact Info) Description 07/22/2023 Refill [facility] [address] [place] [address] Cholo Franks MD [address] [place] [address] Allergies Active Allergy Reactions Criticality Noted Date [...] daily. 30 Tab 11 05/30/2021 Active Nystatin 514586 UNIT/GM External Powder (Nystop) Apply topically to [...] dental exam 12 Capsule 3 06/23/2022 Active Ondansetron 4 MG Oral Tablet Disintegrating (Zofran)Indications :S/P laparoscopic cholecystectomy,Miguel Ángel sea TAKE 1-2 TABLETS BY MOUTH EVERY 8 HOURS NEEDED FOR NAUSEA 30 Tablet 3 08/24/2022 Active Vitamin D (Ergocalciferol) 1.25 MG (45950 UT) Oral Capsule (Drisdol)Indication s:Vitamin D deficiency [...] THE EVENING 180 Tablet 1 07/23/2023 Active amLODIPine Besylate 10 MG Oral Tablet (Norvasc) TAKE BY MOUTH 1/2 TABLETS IN THE MORNING. 45 Tablet 3 07/23/2023 Active amLODIPine Besylate 10 MG Oral Tablet (Norvasc) Take by mouth 0.5 Tablets in the morning. 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 07/26/2017 Osteoarthritis [...] mRNA, LNP-s, No Pre serve, 2-Dose Series (Pfizer) 08/24/2021,11/26/2020,11/05/2020 Covid-19, Mrna, Lnp-s, Pf, B ivalent, [...] encounter Miscellaneous Notes * Telephone Encounter - Dhiraj Dominique, [facility] - 07/23/2023 2:22 PM ESTSigned Prescriptions: Disp Refills amLODIPine Besylate 10 MG Oral Tablet (Nor*45 Tab*3 Sig: TAKE BYMOUTH 1/2 TABLETS IN THE MORNING.Authorizing Provider: CHOLO FRANKS User: DHIRAJ DOMINIQUE documented in this encounter Plan of Treatment Upcoming Encounters Date Type Department Care Team (Late st Contact Info) Description 07/24/2023 2:00 PM EST Office Visit [place] [address] [facility] [address] [facility]anks [facility] [address] [facility] [address] 07/25/2023 8:30 AM EST [place] [address] [facility] [address] 07/31/2023 3:30 PM EST Office Visit Cardiology, [facility] [address] [place] [address] Mark Singh, DO [address] [place] [address] 08/21/2023 10:00 AM EST Office Visit Podiatry [facility] [address] [facility] [place] [address] Adriana Meza DPM [address] [place] [address] 08/28/2023 11:15 AM EST Office Visit Ophthalmology, [facility] [place] [address] Isaiah Valle, DO [address] [place] [address] 01/22/2024 8:40 AM EDT Office Visit [place] [address] [facility] [address] Cholo Franks MD [address] [place] [facility] [place] [place] [address] Scheduled Procedures Name Priority Associated Diagnoses Date/Ti [...] Ratio 07/21/2023 07/21/2022 CKD HGB USE SMARTSET 35852 07/21/202307/21, 07/21/2022, 05/04/2021, Additional history exists CKD PHOS USE SMARTSET 22366 07/21/202312/2021, 05/03/2021, 05/02/2021, Additional history exists Depression Screening [...] Not on filedocumented as of this encounter Advance Directives Latest Code Status [...] and were consensually agreed upon. Care Teams Telecommunication Systems Designer Relationship Specialty Start Date End Date Cholo Franks MD [address] [place] [address] PCP - General 07/02/01 documented as of this encounter
--- OUTSIDE RECORDS SUMMARY | 2023-08-05 10:00 | External Medical Summary | Summary of Care ---
Author Name Unknown Organization [facility] Address [address] [place] [address] Phone [phone] Care Team Providers Care Dairy Chemist Name Role Phone Klaus Douglas MD Primary Care Provider +1- [phone] Reason for Visit * Reason Comments Outpatient Testing Encounter Details Date Type Department Care Team (Late st Contact Info) Description 07/23/2023 9:50 AM EST Laboratory Laboratory, [place] [address] [place] [address] [facility] [address] [place] [address] Coronary artery disease involving [place] coronary artery of [place] heart without angina pectoris; Chronic kidney disease, [...] daily. 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, [place] [address] [facility] [address] Klaus Douglas MD [address] [facility] [address] 07/25/2023 8:30 AM EST Imaging Radiology, [place] [address] [facility] [address] 07/31/2023 3:30 PM EST Office Visit Cardiology, [facility] [address] [facility] [place] [address] Mark Singh, DO [address] [facility] [address] 08/21/2023 10:00 AM EST Office Visit Podiat[facility] [address] [facility] [place] [address] Adriana Meza DPM [address] [facility] [address] 08/28/2023 11:15 AM EST Office Visit Ophthalmology, [facility] [address] [facility] [place] [address] Isaiah Valle, DO [address] [place] [address] 01/22/2024 8:40 AM EDT Office Visit [facility], [place] [address] [facility] [address] Klaus Douglas MD [address] [facility] [address] Pending Results Name Type Priority Associated Diagnoses Date /Time BASIC METABOLIC PANEL Lab Routine Coronary artery disease involving [place] coronary artery of [place] heart without angina pectoris 07/23/2023 9:46 AM EST PHOSPHORUS Lab Routine Chronic kidney disease, stage 3b (HCC) 07/23/2023 9:46 AM EST PTH Lab Routine Chronic kidney disease, stage 3b (HCC) 07/23/2023 9:46 AM EST LIPID PANEL WITH DIRECT LDL IF TG IS HIGH Lab Routine Coronary artery disease involving [place] coronary artery of [place] heart without angina pectoris 07/23/2023 9:46 AM [...] Ratio 07/21/2023 07/21/2022 CKD HGB USE SMARTSET 42896 07/21/202307/21, 07/21/2022, 05/04/2021, Additional history exists CKD PHOS USE SMARTSET 43837 07/21/202312/2021, 05/03/2021, 05/02/2021, Additional history exists Depression [...] Visit Diagnoses Diagnosis Coronary artery disease involving [place] coronary artery of [place] heart without angina pectoris Chronic kidney disease, [...] and were consensually agreed upon. Care Teams Dairy Chemist Relationship Specialty Start Date End Date Klaus Douglas MD [address] [place] [address] PCP - General 07/02/01 documented as of this encounter
--- OUTSIDE RECORDS SUMMARY | 2023-08-05 10:00 | External Medical Summary | Summary of Care ---
Author Name Unknown Organization [facility] Address [address] [place] [address] Phone [phone] Care Team Providers Care Dental Officer Name Role Phone Klaus Douglas MD Primary Care Provider [phone]- [phone] Reason for Referral * Ancillary Services (Within 30 days (routine)) - Authorized Specialty Diagnoses / Procedures Referred By Contac t Referred To Contact Audiology Diagnoses Bilateral hearing loss, unspecified hearing loss type Klaus Douglas MD [address] [place] [address] Referral ID Status Reason Start Date Expiration Date Visits Requested Visits Authorized [id number] Authorized Ancillary Services Required 07/23/[phone] Question Answer Referral Priority Within 30 days (routine) Where should this appointment be scheduled? [facility] Reason for Referral: Hearing Loss Is this sudden hearing loss? 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 [facility] To which of the following clinics are you referring your patient? [facility] * Evaluate & Treat - Unlimited Visits (Within 30 days (routine)) - Authorized Specialty Diagnoses / Procedures Referred By Contsim t Referred To Contact Podiatry Diagnoses Long toenail Klaus Douglas MD [address] [place] [address] Referral ID Status Reason Start Date Expiration Date Visits Requested Visits Authorized [id number] Authorized Specialty Services Required 07/23/[phone] Question Answer Referral Priority Within 30 days (routine) Where should this appointment be scheduled? [facility] Which condition are you referring this patient for? Routine Foot Care Medicare Patient? Yes Can Patient perform routine footcare without assistance? No Does patient have a chronic condition? Yes Has patient been seen in the past 6 months? Yes Date last seen for chronic condition: 07/23/2023 Who saw patient for chronic condition? 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; Hot flashes; Chronic bilateral low back pain without sciatica; Primary insomnia; MARILEE (generalized anxiety disorder); Chronic kidney disease, stage 3b (HCC); Bilateral hearing loss, unspecified hearing loss type; Malaise and fatigue; Encounter for long-term (current) use of medications; Recurrent major depressive disorder, in partial remission ([facility]); Hyperparathyroidism, secondary renal ([facility]); COPD, group B, by GOLD 2017 classification ([facility]) Allergies Active Allergy Reactions Criticality Noted Date Comments Atenolol 06/15/1999 stomach pain Lisinopril 06/27/2010 hyperkalemia Sulfa Antibiotics 2020 Sulfamethoxazole 10/19/2006 Tingling, itch, s.o.b. documented as of this encounter (statuses as of 07/23/2023) Medications Medication Sig Dispensed Refills Start Date End Date Status Multiple Vitamins-Minerals (PRESERVISION AREDS 2) Capsule Take 1 Capsule by mouth in the morning and 1 Capsule before bedtime. 0 Active Ipratropium-Albute rol 20-100 MCG/ACT Inhalation Aerosol Solution Inhale 1 [...] mouth every 8 hours. 30 Tab 0 1 Active Polyethylene Glycol 3350 17 GM Oral Packet (Miralax) Take 1 Packet by mouth daily. 14 Each 0 1 Active Aspirin EC 81 MG Oral Tablet Delayed Release Take 1 Tab by mouth daily. 30 Tab 11 1 Active Nystatin 722890 UNIT/GM External Powder (Nystop) Apply topically to affected area 3 times a day. Apply to affected area of right lower abdomen for up to 4 weeks. 45 g 0 1 Active Fluticasone-Umecli din-Vilant 100-62.5-25 MCG/INH Aerosol Powder Breath Activated (TRELEGY [...] prior to dental exam 12 Capsule 3 2 Active amLODIPine Besylate 10 MG Oral Tablet (Norvasc) Take by mouth 0.5 Tablets in the morning. 45 Tablet 3 2 Active Ondansetron 4 MG Oral Tablet Disintegrating (Zofran)Indication s:S/P laparoscopic cholecystectomy,Na usea TAKE 1-2 TABLETS BY MOUTH EVERY 8 HOURS NEEDED FOR NAUSEA 30 Tablet 3 2 Active Vitamin D (Ergocalciferol) 1.25 MG (70163 UT) Oral Capsule (Drisdol)Indicatio ns:Vitamin D deficiency TAKE 1 CAPSULE BY MOUTH ONE TIME PER WEEK 12 Capsule 3 3 Active Pantoprazole Sodium 20 MG Oral Tablet Delayed Release (Protonix) Take 1 Tablet by mouth in the morning and 1 Tablet in the evening. 180 Tablet 1 3 Active Furosemide 20 MG Oral Tablet (Lasix) TAKE BY MOUTH 1 TABLET ONCE A DAY ON SUNDAY, SUNDAY, AND SUNDAY ONLY . 15 Tablet 1 3 Active Isosorbide Dinitrate 20 MG Oral Tablet (Isordil)Indicatio ns:Essential hypertension with goal blood pressure less than 140/90,Diastolic dysfunction TAKE 1 TABLET BY MOUTH EVERY MORNING TAKE 1 TABLET AT NOON, AND 1 TAB BEFORE BEDTIME, AT 8 AM, 12 NOON, AND 4 PM 270 Tablet 2 3 Active Metoprolol Succinate ER 25 MG Oral Tablet Extended Release 24 Hour (toPROL XL) Take 0.5 Tablets by mouth in the morning. 45 Tablet 1 3 Active FLUoxetine HCl 10 MG Oral Capsule (PROzac) Take 1 Capsule by mouth in the morning. 90 Capsule 1 3 Active Simvastatin 20 MG Oral Tablet (Zocor) TAKE BY MOUTH 1 TABLET IN THE EVENING. 90 Tablet 1 3 Active Zolpidem Tartrate 5 MG Oral Tablet (Ambien)Indication s:Primary insomnia Take 1 Tablet by mouth at bedtime as needed for Sleep. 10 Tablet 0 3 Active HYDROcodone-Acetam inophen 5-325 MG Oral TabletIndications: Chronic bilateral low back pain without sciatica Take 1 Tablet by mouth every 8 hours as needed for Pain, Mild or Pain, Severe. 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 20 Tablet 0 3 07/23/20 23 Discontinued Zolpidem Tartrate 5 MG Oral Tablet (Ambien) Take 1 Tablet by mouth at bedtime as needed for Sleep. 90 Tablet 0 3 07/23/20 23 Discontinued(Ref ill) HYDROcodone-Acetam inophen 5-325 MG Oral TabletIndications: Chronic bilateral low back pain without sciatica Take 1 Tablet by mouth every 8 hours as needed for Pain, Mild or Pain, Severe. 90 Tablet 0 3 07/23/20 23 Discontinued(Ref ill) Hospital, Clinic, or Other Facility Administered Medication [...] dysfunction 07/26/2017 Coronary artery disease invo lving tetlin coronary artery without angina pectoris 07/26/2017 Osteoarthritis [...] mRNA, LNP-s, No Pre serve, 2-Dose Series (Revuze) 08/24/2021,11/26/2020,11/05/2020 Covid-19, Mrna, Lnp-s, Pf, B ivalent, [...] on file documented as of this encounter Last Filed Vital Signs Vital Sign Reading Time Taken Comments Blood Pressure 120/70 07/23/2023 8:08 AM EST Pulse 60 07/23/2023 8:08 AM EST Temperature - - Respiratory Rate 18 07/23/2023 8:08 AM EST Oxygen Saturation 93% 07/23/2023 8:08 AM EST Inhaled Oxygen Concentration - - Weight 76.2 kg (168 lb) 07/23/2023 8:08 AM EST Height 154.9 cm (5' 1") 07/23/2023 8:08 AM EST Body Mass Index 31.74 07/23/2023 8:08 AM EST documented in this encounter Functional Status Functional Status Response [...] No 05/15/2019 documented as of this encounter Progress Notes * Klaus Douglas MD - 07/23/2023 8:51 AM EST Subjective: Makenna Harris is a 88 year old female here today for Chief Complaint Patient presents with Follow Up Headache, ear discomfort, sore area in left breast, lump in abdomen Patient presents for routine six-month return. She has felt a lump in her abdomen near the umbilicus for a few weeks. States she can not feel it all the time. No significant pain. No injury. She also reports that there has been a sore irritated area under the left breast intermittently over time. There is often times some redness but no drainage. No itch. Patient herself has not seen it.Her reports that it does seem irritated and inflamed at times. Patient reports that both ears have felt itchy and uncomfortable at times for the past few weeks. No drainage from the ear canal. Chronic issues with hearing loss but no previous audiology evaluation. Slight ringing at times. She reports continued headaches. This is in the left frontal area. States they have been present for 2 to 3 years. Patient and related to her fall and head trauma in April of 2021. She was admitted to [facility] - had a subarachnoid hemorrhage and a subdural hematoma. She had a follow-up CT scan in September of 2022 - done because of headaches - no acute intracranial abnormalities noted. Patient was started on Isordil 3 times a day in 2018. Patient and thought the headaches may relate to dental issues but she had her teeth taking care of and has not seen resolution of the headaches. She is also having feelings of hot flashes. Chronic issues with fatigue. 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 LAST PFT -01/05/10 Dyslipidemia, goal LDL below 100 07/14/2015 Dyslipidemia, goal to be determined Esophageal reflux 07/02/2001 External hemorrhoids with other complication Exudative macular degeneration ([facility]) 11/09/2015 Generalized osteoarthritis right knee HEMORRHOIDS, EXTERNAL W/O COMPLICATIONS 07/02/2001 HTN, goal below 140/90 07/02/2001 HTN, goal to be determined Kidney disease, chronic, stage III (GFR 30-59 ml/min) ([facility]) 11/10/2013 Per CKD protocol #1 Obesity, Class I, BMI 30.0-34.9 (see actual BMI) 07/03/2013 bmi= 31.86 07/03/13 Osteopenia 11/26 repeat dexa suggested 11/29 Osteoporosis Shakiness 07/03/2013 Tobacco use disorder 07/03/2013 UNILAT INGUINAL HERNIA 05/30/2007 UTI (urinary tract infection) 07/07/2013 VITAMIN D DEFICIENCY NOS 11/21/2008 Past Surgical History: Procedure Laterality Date APPENDECTOMY W/OTHER PROCEDURE with [facility]ART[facility] CARPAL TUNNEL SURGERY 03/02/1992 Carpal Tunnel repair - right CATARACT SURGERY,COMPLEX 12/11/2008 right eye CATARACT SURGERY,COMPLEX 01/18/2009 01/18/2009 left eye COLONOSCOPY 09/2003 normal COLONOSCOPY, DIAGNOSTIC (RECTUM) 05/15/2016 hyperplastic polyp, diverticulosis/COLONOSCOPY FLEXIBLE PROXIMAL DIAGNOSTIC performed by Juan David Gates MD at [facility] CORONARY ANGIOGRAPHY W/LEFT HEART CATH Right 01/27/2019 CORONARY ANGIOGRAPHY W/LEFT HEART CATH performed by Jackie Pastrana MD at [facility] [place] [place] CORONARY ANGIOGRAPHY W/RIGHT+LEFT CATH Right 07/10/2017 CORONARY ANGIOGRAPHY W/RIGHT+LEFT CATH performed by Noel Bearden MD at [facility] [place] [place] EGD, FLEXIBLE, DIAGNOSTIC N/A 10/05/2022 [facility], EGD, Tortuous esophagus, non-bleeding gastric ulcer / no specimens collected / repeat in 8 weeks. EGD, FLEXIBLE, DIAGNOSTIC N/A 11/22/2022 [facility]< EGD, antral gastritis, z-line regular 38 cm from incisors / no specimens / HEMILAMINECTOMY, CERVICAL/LUMBAR, EA. ADD'L 05/2002 decompression/fusion L3-5 HEMORRHOIDECTOMY,EXTERNAL, 2 + COLUMNS 10/06/2003 Hemorrhoidectomy INFORMATION Right AVASTIN CONSENT OD SIGNED; DR VALLE (EXP 2021) INJECTION OF EYE DRUG Left 08/23/2015 # 1 Eylea OS; Dr. Valle INJECTION OF EYE DRUG Left 09/22/2015 # 2 Eylea OS, INJECTION OF EYE DRUG Left 11/09/2015 # 3 Eylea OS, INJECTION OF EYE DRUG Left 01/04/2016 # 4 Eylea OS, Dr. Valle INJECTION OF EYE DRUG Left 03/14/2016 # 5 Eylea OS, Dr. Valle INJECTION OF EYE DRUG Left 06/07/2016 # 6 Eylea OS, Dr. Valle INJECTION OF EYE DRUG Left 07/19/2016 # 7 Eylea OS, INJECTION OF EYE DRUG Right 2020 # 1 Avastin OD; Dr. Valle INJECTION OF EYE DRUG Right 07/28/2020 # 2 Avastin OD, Dr. Valle INJECTION OF EYE DRUG Right 09/07/2020 # 3 Avastin OD, Dr. Valle INJECTION OF EYE DRUG Right 11/02/2020 # 4 Avastin OD, INJECTION OF EYE DRUG Right 12/22/2020 # 5 Avastin OD, Dr. Valle INJECTION OF EYE DRUG Right 02/17/2021 # 6 Avastin OD, INJECTION OF EYE DRUG Right 04/20/2021 # 7 Avastin OD, INJECTION OF EYE DRUG Right 06/21/2021 # 8 Avastin OD, Dr. Valle INJECTION OF EYE DRUG Right 08/22/2021 # 9 Avastin OD, Dr. Valle INJECTION OF EYE DRUG Right 10/17/2021 # 10 Avastin OD, Dr. Valle INJECTION OF EYE DRUG Right 12/15/2021 # 11 Avastin OD,Dr. Valle INJECTION OF EYE DRUG Right 02/09/2022 #12 Avastin OD, Dr Valle INJECTION OF EYE DRUG Right 04/11/2022 # 13 Avastin OD, Dr. Valle INJECTION OF EYE DRUG Right 06/08/2022 #14 Avastin OD - Dr Valle INJECTION OF EYE DRUG Right 08/16/2022 # 15 Avastin OD, Dr. Valle INJECTION OF EYE DRUG Right 10/30/2022 #16 Avastin OD; Tori INJECTION OF EYE DRUG Right 01/16/2023 # [address] Valle INJECTION OF EYE DRUG Right 04/02/2023 # 18 Avastin OD, Dr. Valle INJECTION OF EYE DRUG Right 06/13/2023 # 19 Avastin OD, Dr. Valle LAPAROSCOPY; CHOLECYSTECTOMY 03/16/2014 laparoscopic cholecystectomy [facility], [place] 03/16/14 MISCELLANEOUS ORDER ([facility] ONLY) Left 08/23/2015 EYLEA CONSENT OS SIGNED; DR VALLE MISCELLANEOUS ORDER ([facility] ONLY) Left 10/18/2016 EYLEA CONSENT OS SIGNED; DR VALLE (GOOD THRU 10/18/17) MISCELLANEOUS ORDER ([facility] ONLY) ACT 112 SIGNED 06/22/20 DR. VALLE OTHER 04/09/2007 Repair incarcerated right lower quadrant Dr. Crow OTHER (INFORMATION) Bilateral AVASTIN OU CONSENT DR. VALLE/ANTWAN EXP. 06/21/22 OTHER (INFORMATION) Bilateral AVASTIN OU CONSENT DR. VALLE/ANTWAN EXP. 08/16/2023 REMOVE TONSILS & ADENOIDS, UNDER 12 T & A, age<12 REPLACE AORTIC VALVE, PERCUTANEOUS FEMORAL Bilateral 05/15/2019 REPLACE AORTIC VALVE, PERCUTANEOUS FEMORAL performed by Noel Bearden MD at [facility] [place] [place] REPLACE AORTIC VALVE, PERCUTANEOUS FEMORAL 05/15/2019 REPLACE AORTIC VALVE, PERCUTANEOUS FEMORAL performed by Addy Prieto MD at [facility] [place] [place] STRESS ECHO (DOBUTAMINE) 10/2004 No stress-induced changes TOTAL ABD HYSTERECTOMY W/WO REMOVAL OF TUBE(S) 03/1973 not sure if ovaries remain TOTAL HIP REPLACEMENT & PROSTHESIS 11/21/2004 Right Hip Replacement Review of patient's allergies indicates: Allergen Reactions Atenolol stomach pain Lisinopril hyperkalemia Sulfa Antibiotics Sulfamethoxazole Tingling, itch, s.o.b. Current Outpatient Medications Medication Sig Dispense Refill Multiple Vitamins-Minerals (PRESERVISION AREDS 2) Capsule Take 1 Capsule by mouth in the morning and 1 Capsule before bedtime. Ipratropium-Albuterol 20-100 MCG/ACT Inhalation Aerosol Solution Inhale 1 Puff by mouth in the morning and 1 Puff at noon and 1 Puff in the evening and 1 Puff before bedtime. Albuterol Sulfate HFA 108 (90 Base) MCG/ACT Inhalation Aerosol Solution Inhale 2 Puffs by mouth every 6 hours as needed for Shortness of Breath or Wheezing. Acetaminophen 325 MG Oral Tablet (Tylenol) Take 3 Tabs by mouth every 8 hours. 30 Tab 0 Polyethylene Glycol 3350 17 GM Oral Packet (Miralax) Take 1 Packet by mouth daily. 14 Each 0 Aspirin EC 81 MG Oral Tablet Delayed Release Take 1 Tab by mouth daily. 30 Tab 011 Nystatin 219715 UNIT/GM External Powder (Nystop) Apply topically to affected area 3 times a day. Apply to affected area of right lower abdomen for up to 4 weeks. 45 g 0 Ibqvheqkwno-Fwzoldoei-Qwzsyv 100-62.5-25 MCG/INH Aerosol Powder Breath Activated (TRELEGY ellipta) Inhale 1 Puff by mouth in the morning. Meclizine HCl 25 MG Oral Tablet (Antivert) Take 1 Tablet by mouth 3 times a day as needed. Mirtazapine 15 MG Oral Tablet (Remeron) Take 1 Tablet by mouth at bedtime. amLODIPine Besylate 10 MG Oral Tablet (Norvasc) Take by mouth 0.5 Tablets in the morning. 45 Tablet3 Ondansetron 4 MG Oral Tablet Disintegrating (Zofran) TAKE 1-2 TABLETS BY MOUTH EVERY 8 HOURS NEEDED FOR NAUSEA 30 Tablet 3 Vitamin D (Ergocalciferol) 1.25 MG (83026 UT) Oral Capsule (Drisdol) TAKE 1 CAPSULE BY MOUTH ONE TIME PER WEEK 12 Capsule 3 Pantoprazole Sodium 20 MG Oral Tablet Delayed Release (Protonix) Take 1 Tablet by mouth in the morning and 1 Tablet in the evening. 180 Tablet 1 Furosemide 20 MG Oral Tablet (Lasix) TAKE BY MOUTH 1 TABLET ONCE A DAY ON SUNDAY, SUNDAY, AND SUNDAY ONLY . 15 Tablet 1 Isosorbide Dinitrate 20 MG Oral Tablet (Isordil) TAKE 1 TABLET BY MOUTH EVERY MORNING TAKE 1 TABLETAT NOON, AND 1 TAB BEFORE BEDTIME, AT 8 AM, 12 NOON, AND 4 PM 270 Tablet 2 Metoprolol Succinate ER 25 MG Oral Tablet Extended Release 24 Hour (toPROL XL) Take 0.5 Tablets by mouth in the morning. 45 Tablet 1 FLUoxetine HCl 10 MG Oral Capsule (PROzac) Take 1 Capsule by mouth in the morning. 90 Capsule 1 Simvastatin 20 MG Oral Tablet (Zocor) TAKE BY MOUTH 1 TABLET IN THE EVENING. 90 Tablet 1 Zolpidem Tartrate 5 MG Oral Tablet (Ambien) Take 1 Tablet by mouth at bedtime as needed for Sleep. 10 Tablet 0 HYDROcodone-Acetaminophen 5-325 MG Oral Tablet Take 1 Tablet by mouth every 8 hours as needed for Pain, Mild or Pain, Severe. 90 Tablet 0 Amoxicillin 500 MG Oral Capsule (Amoxil) 4 caps 1 hour prior to dental exam 12 Capsule 3 Current Facility-Administered Medications Medication Dose Route Frequency Provider Last Rate Last Admin albuterol (PROVENTIL HFA) inhaler 4 Puff 4 Puff Inhalation Q4H PRN Mark Singh, DO 4 Puff at 07/24/17 1137 bevaCIZumab (Avastin) inj 1.25 mg 1.25 mg Intravitreal PRN Isaiah Valle, DO 1.25 mg at 06/13/23 1356 ROPivacaine (Naropin) inj 1.5 mg 1.5 mg Injection PRN Isaiah Valle, DO 1.5 mg at 06/13/23 1357 Objective: BP 120/70 | Pulse 60 | Resp 18 | Ht 1.549 m (5' 1") | Wt 76.2 kg (168 lb) | SpO2 93% | BMI 31.74 kg/m | BSA 1.81 m GEN: NAD HEENT: PERRLA, EOMI, conjunctiva not injected or icteric. Right EAC with cerumen impaction. Slight cerumen on the left. TM's normal without erythema or lesion. No fluid or infection seen in middle ear space. Nares clear of obstruction, lesion, drainage. OP without tonsillar enlargement or exudate, MMM, no lesion. NECK: Supple with no LAD, TM, JVD CHEST: CTA B CV: RRR ABD: Soft, NT/ND, No HSM, NABS. There is a likely umbilical hernia. EXT: No c,c,e Assessment and Plan: Chronic nonintractable headache, unspecified headache type (Primary) -unclear etiology but most likely relates to her fall and head injury from 2020. Pain is in the location of the injury. To the best of her recollection, symptoms have been present since that time. Consider review of isordil with Cardiology. 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 Primary insomnia - Zolpidem Tartrate 5 MG Oral Tablet (Ambien); Take 1 Tablet by mouth at bedtime as needed for Sleep. MARILEE (generalized anxiety disorder) -continue current treatments Chronic kidney disease, stage 3b (HCC) - HGB; Future; Expected date: 07/23/2023 - PHOSPHORUS; Future; Expected date: 07/23/2023 - PTH; Future; Expected date: 07/23/2023 - ALBUMIN / CREATININE RATIO, URINE; Future; Expected date: 07/23/2023 -update labs. Bilateral hearing loss, unspecified hearing loss type - AUDIOLOGY REFERRAL OP -ears cleaned by nursing, audiology eval. Malaise and fatigue - TSH WITH FREE T4 IF INDICATED; Future; Expected date: 07/23/2023 Encounter for long-term (current) use of medications - TSH WITH FREE T4 IF INDICATED; Future; Expected date: 07/23/2023 Recurrent major depressive disorder, in partial remission (HCC) -continue current treatments Hyperparathyroidism, secondary renal (HCC) -update labs COPD, group B, by GOLD 2017 classification (HCC) -stable Follow Up: Return in about 6 months (around 01/21/2024) for recheck. | For: recheck | Check-out note:Podiatry (see has appt) Cards Labs today Abd u/s Audiology 58 min with pt and chart review and documentation Klaus Douglas MD documented in this encounter Nursing Notes * Leslie Stark LPN - 07/23/2023 8:13 AM EST The patient has been properly identified by confirmation of name and date of . Chief Complaint Patient presents with Follow Up Headache, ear discomfort, sore area in left breast, lump in abdomen documented in this encounter Plan of Treatment Upcoming Encounters Date Type Department Care Team (Late st Contact Info) Description 07/24/2023 2:00 PM EST Office Visit [place] [address] [place] [facility] [place] [address] Klaus Douglas MD [address] [place] [address] 07/25/2023 8:30 AM EST Imaging Radiology, [place] [address] [place] [address] 07/31/2023 3:30 PM EST Office Visit Cardiology, [facility] [address] [facility] [place] [address] Mark Singh, DO [address] [place] [address] 08/21/2023 10:00 AM EST Office Visit Podiatry [facility] [address] [facility] [place] [address] Adriana Meza DPM [address] [facility] [place] [address] 08/28/2023 11:15 AM EST Office Visit Ophthalmology, [facility] [address] [facility] [place] [address] Isaiah Valle, DO [address] [place] [address] 01/22/2024 8:40 AM EDT Office Visit [facility] [address] [place] [phone] Klaus Douglas MD [address] [place] [address] Pending Results Name Type Priority Associated Diagnoses Date /Time BASIC METABOLIC PANEL Lab Routine 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 07/23/2023 9:46 AM EST PHOSPHORUS Lab Routine Chronic kidney disease, stage 3b (HCC) 07/23/2023 9:46 AM EST PTH Lab Routine Chronic kidney disease, stage 3b (HCC) 07/23/2023 9:46 AM EST ALBUMIN / CREATININE RATIO, URINE Lab Routine Chronic kidney disease, stage 3b (HCC) 07/23/2023 10:01 AM EST LIPID PANEL WITH DIRECT LDL IF TG IS HIGH Lab Routine 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 07/23/2023 9:46 AM EST TSH WITH FREE T4 IF INDICATED Lab Routine Hot flashes Malaise and fatigue Encounter for long-term (current) use of medications 07/23/2023 9:46 AM EST CBC Lab Routine Hot flashes 07/23/2023 9:46 AM EST Scheduled Orders Name Type Priority Associated Diagnoses Orde r Schedule BASIC METABOLIC PANEL Lab Routine 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 Expected: 07/23/2023 (Approximate), Expires: 07/22/2024 PHOSPHORUS Lab Routine Chronic kidney disease, stage 3b (HCC) Expected: 07/23/2023 (Approximate), Expires: 07/22/2024 PTH Lab Routine Chronic kidney disease, stage 3b (HCC) Expected: 07/23/2023 (Approximate), Expires: 07/22/2024 ALBUMIN / CREATININE RATIO, URINE Lab Routine Chronic kidney disease, stage 3b (HCC) Expected: 07/23/2023 (Approximate), Expires: 07/22/2024 LIPID PANEL WITH DIRECT LDL IF TG IS HIGH Lab Routine 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 Expected: 07/23/2023, Expires: 07/23/2024 US ABDOMEN LIMITED Medical Imaging Routine Umbilical hernia without obstruction and without gangrene Expected: 07/23/2023, Expires: 08/22/2024 TSH WITH FREE T4 IF INDICATED Lab Routine Hot flashes Malaise and fatigue Encounter for long-term (current) use of medications Expected: 07/23/2023 (Approximate), Expires: 07/22/2024 CBC Lab Routine Hot flashes Expected: 07/23/2023 (Approximate), Expires: 07/22/2024 Scheduled Procedures Name Priority Associated Diagnoses Date/Ti me ESOPHAGOGASTRODUODENOSCOPY ( EGD), FLEXIBLE, TRANSORAL, DIAGNOSTIC Recall Esophageal dysphagia Scheduled Referrals Name Type Priority Associated Diagnoses Orde r Schedule PODIATRY REFERRAL OP Referral Within 30 d ays (routine) Long toenail Ordered: 07/23/2023 CARDIOLOGY REFERRAL OP Referral Within 30 days (routine) 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 Ordered: 07/23/2023 AUDIOLOGY REFERRAL OP Referral Within 30 days (routine) Bilateral hearing loss, unspecified hearing loss type Ordered: 07/23/2023 Health Maintenance Due Date Last Done Comments Alpha-1 Antitrypsin 1953 Zoster Vaccines (2 of 2) 07/25/2013 05/30/2013, 05/18 *BISPHONATE OR OTHER ACCEPTABLE MEDICATION NEEDED FOR OSTEOPOROSIS (REFER TO SMARTSET #1146) 05/20/2019 COVID-19 Vaccine ( season) 2023 09/28/2022, 08/24/2021, 11/26/2020, Additional history exists Albumin/Creatinine Ratio 07/21/2023 07/21/2022 CKD HGB USE SMARTSET 60724 07/21/202307/21, 07/21/2022, 05/04/2021, Additional history exists CKD PHOS USE SMARTSET 56492 07/21/202312/2021, 05/03/2021, 05/02/2021, Additional history exists Depression [...] as of this encounter Visit Diagnoses Diagnosis Chronic nonintractable headache, unspecified headache type- Primary Umbilical hernia without obstruction and without gangrene Long toenail Other specified disease of nail 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 Hot flashes Symptomatic menopausal or female climacteric states Chronic bilateral low back pain without sciatica Primary insomnia Persistent disorder of initiating or maintaining sleep MARILEE (generalized anxiety disorder) Generalized anxiety disorder Chronic kidney disease, stage 3b (HCC) Bilateral hearing loss, unspecified hearing loss type Malaise and fatigue Other malaise and fatigue Encounter for long-term (current) use of medications Encounter for long-term (current) use of other medications Recurrent major depressive disorder, in partial remission (HCC) Hyperparathyroidism, secondary renal (HCC) Secondary hyperparathyroidism (of renal origin) COPD, group B, by GOLD 2017 classification (HCC) documented in this encounter Advance Directives Latest [...] and were consensually agreed upon. Care Teams Dental Officer Relationship Specialty Start Date End Date Klaus Douglas MD [address] [place] [address] PCP - General 07/02/01 documented as of this encounter
--- OUTSIDE RECORDS SUMMARY | 2023-08-05 10:00 | External Medical Summary ---
Author Name Unknown Address Unknown Organization [id number]:[facility] [place] [facility] [address] [place] [address] Laboratory Report Ordering Provider Test Date Status TINY EMMANUEL 07/23/2023 09:46:40 Final Observation Date Value Abnormality Reference (Units ) Status BUN 07/23/2023 09:46:40 19 6-20 (mg/dL) Final Creatinine 07/23/2023 09:46:40 1.0 0.5-1.0 (mg/dL) Final Glomerular filtration rate/1.73 sq M.predicted [Volume Rate/Area] in Serum, Plasma or Blood by Creatinine-based formula (CKD-EPI) 07/23/2023 09:46:40 52 Below low normal >=60 (mL/min) Final eGFR is calculated based on the CKD-EPI 2020 equation SODIUM 07/23/2023 09:46:40 142 135-146 (m mol/L) Final Potassium 07/23/2023 09:46:40 4.0 3.5-5.1 (m mol/L) Final Cl 07/23/2023 09:46:40 106 98-107 (mm ol/L) Final CO2 07/23/2023 09:46:40 26 22-32 (mmo l/L) Final Anion gap 07/23/2023 09:46:40 10 7-15 (mmol /L) Final Glucose 07/23/2023 09:46:40 123 Above high normal 70 -120 (mg/dL) Final Calcium 07/23/2023 09:46:40 9.3 8.4-10.2 ( mg/dL) Final Performing Location LAB[facility] [place] [address] [place] [address]
--- OUTSIDE RECORDS SUMMARY | 2023-08-05 10:00 | External Medical Summary ---
Author Name Unknown Address Unknown Organization [id number]:LAB[facility]ATORY [facility] [place] - [address] [address] Laboratory Report Ordering Provider Test Date Status JONH EMMANUELLEONIDAS 07/23/2023 09:46:40 Final Observation Date Value Abnormality Reference (Units ) Status Triglyceride 07/23/2023 09:46:40 96 <=174 ( mg/dL) Final Triglyceride Reference Range s (mg/dL):
<150 Acceptable
150-174 Borderline high
175-499 High
>=500 Very high Cholesterol 07/23/2023 09:46:40 148 <200 (mg /dL) Final Total Cholesterol Reference Ranges (mg/dL):
<200 Desirable
200-239 Borderline high
>=240 High HDL 07/23/2023 09:46:40 68 >49 (mg/dL ) Final HDL Cholesterol Reference Ra nges (mg/dL):
>=60 High (Desirable)
<50 Low (Undesirable) For Females
<40 Low (Undesirable) For Males NON-HDL CHOLESTEROL 07/23/2023 09:46:40 80 <=159 (mg/dL) Final Non-HDL Cholesterol Referenc e Range (mg/dL):
<100 Target level for high risk ASCVD patient
<130 Optimal for general population
130-159 Near optimal for general population
160-189 Borderline High
190-219 High
>=220 Very High LDL, (calculated) 07/23/2023 09:46:40 61 <= 129 (mg/dL) Final LDL Cholesterol Reference Ra nges (mg/dL):
<70 Target level for high risk ASCVD patient
<100 Optimal for general population
100-129 Near optimal for general population
130-159 Borderline high
160-189 High
>=190 Very high Performing Location LABORATORY [facility] [place] - [address] [facility] [address]
--- OUTSIDE RECORDS SUMMARY | 2023-08-05 10:00 | External Medical Summary ---
Author Name Unknown Address Unknown Organization K01:[place] [facility] [place] [address] [place] [address] Laboratory Report Ordering Provider Test Date Status MERCED VALDEZ 07/23/2023 09:46:40 Final Observation Date Value Abnormality Reference (Units ) Status Vitamin B12 07/23/2023 09:46:40 [phone] (pg/mL) Final Performing Location LABORATORY [facility] - [address] [place] [address]
--- OUTSIDE RECORDS SUMMARY | 2023-08-05 10:00 | External Medical Summary | Summary of Care ---
Author Name Unknown Organization [facility] Address [address] [place] [address] Phone [phone] Care Team Providers Care Motor And Generator Brush Maker Name Role Phone Klaus Douglas MD Primary Care Provider [phone] Reason for Referral * Precert (Within 10 days (routine)) - Authorized Specialty Diagnoses / Procedures Referred By Contac t Referred To Contact Cardiac Studies Diagnoses VELIZ (dyspnea on exertion) Coronary artery disease involving shoshone-bannock coronary artery of shoshone-bannock heart without angina pectoris LBBB (left bundle branch block) S/P TAVR (transcatheter aortic valve replacement) Procedures ECHO, COMPLETE (2D), TRANS-THORACIC Mark Singh DO [address] [place] [address] Referral ID Status Reason Start Date Expiration Date V isits Requested Visits Authorized [id number] Authorized Precert 07/31/2023 999 999 Reason for Visit * Reason Comments Follow Up * Evaluate & Treat - Unlimited Visits (Within 30 days (routine)) - Authorized Specialty Diagnoses / Procedures Referred By Contact Referred To Contact Cardiovascular Medicine / Cardiology Diagnoses Coronary artery disease involving shoshone-bannock coronary artery of shoshone-bannock heart without angina pectoris Klaus Douglas MD [facility] [place] [address] Referral ID Status Reason Start Date Expiration Date Visits Requested Visits Authorized [id number] Authorized Specialty Services Required 07/23/2023 999 999 Encounter Details Date Type Department Care Team (Late st Contact Info) Description 07/31/2023 3:30 PM EST Office Visit Cardiology, [facility] [address] [place] [address] Mark Singh, DO [address] [place] [address] VELIZ (dyspnea on exertion)*; Coronary artery disease involving shoshone-bannock coronary artery of shoshone-bannock heart without angina pectoris; LBBB (left bundle branch block); S/P TAVR (transcatheter aortic valve replacement); Diastolic dysfunction; Dyslipidemia; Bilateral carotid artery stenosis Allergies Active Allergy Reactions Criticality Noted Date Comments Atenolol 06/15/1999 stomach pain Lisinopril 06/27/2010 hyperkalemia Sulfa Antibiotics 2020 Sulfamethoxazole 10/19/2006 Tingling, itch, s.o.b. documented as of this encounter (statuses as of 07/31/2023) Medications Medication Sig Dispensed Refills Start Date [...] daily. 30 Tab 11 05/30/2021 Active Nystatin 762810 UNIT/GM External Powder (Nystop) Apply topically to [...] 08/24/2022 Active Vitamin D (Ergocalciferol) 1.25 MG (05338 UT) Oral Capsule (Drisdol)Indications: Vitamin D deficiency [...] THE MORNING. 45 Tablet 3 07/23/2023 Active Zolpidem Tartrate 5 MG Oral Tablet [...] as of this encounter (statuses as of 07/31/2023) Active Problems Problem Noted Date Diagnosed Date [...] dysfunction 07/26/2017 Coronary artery disease invo lving shoshone-bannock coronary artery without angina pectoris 07/26/2017 Osteoarthritis of left knee 06/07/2016 Hypertension 04/12/2016 Exudative macular degeneration 11/09/2015 Obesity, Class I, BMI 30.0-34.9 (see actual BMI) 07/03/2013 Overview: bmi= 31.86 07/03/13 Osteoporosis 02/19/2013 Stenosis of carotid artery 07/26/2012 Dyslipidemia 09/01/2009 Overview: Per Lipid Taxonomy. Vitamin D deficiency 11/21/2008 Unilateral inguinal hernia 05/30/2007 Gastroesophageal reflux disease 07/02/2001 documented as of this encounter (statuses as of 07/31/2023) Resolved Problems Problem Noted Date Diagnosed Date [...] of inactive term Tobacco use disorder 07/27/2000 10/16/2 001 Respiratory symptoms 07/27/2000 013 Overview: ICD-10 update of inactive term documented as of this encounter (statuses as of 07/31/2023) Immunizations Name Administration Dates Next Due COVID-19 mRNA, LNP-s, No Pre serve, 2-Dose Series (ODEC) 08/24/2021,11/26/2020,11/05/2020 Covid-19, Mrna, Lnp-s, Pf, B ivalent, [...] 60 Q uit: 02/21/2015 Smokeless Tobacco: Never Tobacco Cessation:Counseling Given: No Alcohol Use Standard Drinks/Week Comments No 0 [...] Sign Reading Time Taken Comments Blood Pressure 164/80 07/31/2023 3:36 PM EST Pulse 64 07/31/2023 3:36 PM EST Temperature - - Respiratory Rate 16 07/31/2023 3:36 PM EST Oxygen Saturation - - Inhaled Oxygen Concentration - - Weight 76.2 kg (167 lb 14.4 oz) 07/31/2023 3:36 PM EST Height - - Body Mass Index 31.72 07/23/2023 8:08 AM EST documented in this [...] or making decisions? (5 years old or older) No 05/15/2019 documented as of this encounter Progress Notes * Mark Singh, - 07/31/2023 4:18 PM EST 06/05/2022 Cardiology Follow Up CHIEF COMPLAINT: Follow up, history of chronic diastolic heart failure, coronary heart disease, history of TAVR, carotid disease SUBJECTIVE: Makenna Harris is a 88 year old year old female who returns routine cardiology follow-up. She was accompanied by her as per her usual routine. Both of MR concerned about her havingworsening shortness of breath over the last 3 months. She does have a history of COPD and she states that she feels like her inhalers help a little bit with her shortness of breath. She is had a nonproductive cough. She would previously been placed on low-dose diuretic therapy to see if treatment of underlying diastolic dysfunction would help with her dyspnea, but I do not think it was help significantly at thispoint. Extensive ROS: All systems reviewed & are unremarkable except as noted in HPI & below Cardiovascular (chest pain/palpitations/fluttering/diaphoresis/dyspnea on exertion/paroxysmally nocturnal dyspnea):Negative and see above hpi Review of patient's allergies indicates: Allergen Reactions [...] by mouth daily. 30 Tab 011 Nystatin 822240 UNIT/GM External Powder (Nystop) Apply topically to affected area 3 times a day. Apply to affected area of right lower abdomen for up to 4 weeks. 45 g 0 Rhsyzimdpyl-Uvrybetli-Zytxne 100-62.5-25 MCG/INH Aerosol Powder Breath Activated (TRELEGY ellipta) Inhale 1 Puff by mouth in the morning. Meclizine HCl 25 MG Oral Tablet (Antivert) Take 1 Tablet by mouth 3 times a day as needed. Mirtazapine 15 MG Oral Tablet (Remeron) Take 1 Tablet by mouth at bedtime. Amoxicillin 500 MG Oral Capsule (Amoxil) 4 caps 1 hour prior to dental exam 12 Capsule 3 Ondansetron 4 MG Oral Tablet Disintegrating (Zofran) TAKE 1-2 TABLETS BY MOUTH EVERY 8 HOURS NEEDED FOR NAUSEA 30 Tablet 3 Vitamin D (Ergocalciferol) 1.25 MG (14743 UT) Oral Capsule (Drisdol) TAKE 1 CAPSULE BY MOUTH ONE TIME PER WEEK 12 Capsule 3 Furosemide 20 MG Oral Tablet (Lasix) TAKE [...] TABLET IN THE EVENING. 90 Tablet 1 Pantoprazole Sodium 20 MG Oral Tablet Delayed Release (Protonix) TAKE 1 TABLET BY MOUTH IN THE MORNING AND IN THE EVENING 180 Tablet 1 amLODIPine Besylate 10 MG Oral Tablet (Norvasc) TAKE BY MOUTH 1/2 TABLETS IN THE MORNING. 45 Tablet3 Zolpidem Tartrate 5 MG Oral Tablet (Ambien) Take 1 Tablet by mouth at bedtime as needed for Sleep. 10 Tablet 0 HYDROcodone-Acetaminophen 5-325 MG Oral Tablet Take 1 Tablet by mouth every 8 hours as needed for Pain, Mild or Pain, Severe. 90 Tablet 0 Current Facility-Administered Medications Medication Dose Route Frequency Provider Last Rate Last Admin albuterol (PROVENTIL HFA) inhaler 4 Puff 4 Puff Inhalation Q4H PRN Mark Singh, DO 4 Puff at 07/24/17 1137 bevaCIZumab (Avastin) inj 1.25 mg 1.25 mg Intravitreal PRN Isaiah Valle DO 1.25 mg at 06/13/23 1356 ROPivacaine (Naropin) inj 1.5 mg 1.5 mg Injection PRN Isaiah Valle DO 1.5 mg at 06/13/23 1357 OBJECTIVE/PHYSICAL EXAMINATION: BP 164/80 (BP Site: Left Arm, BP Position: Sitting, BP Cuff Size: Large) | Pulse 64 | Resp 16 | Wt 76.2 kg (167 lb 14.4 oz) | BMI 31.72 kg/m | BSA 1.81 m General: no acute distress and stated age Eyes: conjunctiva are pink and non-injected, sclera clear Neck: normal jugular venous pulse, no hepatojugular reflux Chest: normal shape and normal respiratory effort Lungs: clear to auscultation , no rales rhonchi or wheezing Cardiac Exam: - regular heart sounds, no murmurs, rubs, or gallops Abdomen: abdomen soft, non-tender, no abnormal masses and no hepatosplenomegaly Musculoskeletal: no gait disturbance, no weakness Extremities: no edema and no cyanosis Neuro: grossly normal exam Psych: appropriate affect and insight. Data: EKG performed 08/12/2021: Normal sinus rhythm at 74 beats per minute, left bundle branch block, QRSduration 122 milliseconds ASSESSMENT / PLAN: 88 year old year old female Dyspnea on exertion -due to history of TAVR and left bundle branch block, proceed with repeat echocardiogram for reassessment of left ventricular systolic function. -continue current dose of furosemide 20 milligrams 3 days per week S/P TAVR (transcatheter aortic valve replacement) -stable findings on most recent echocardiogram, October, as summarized above. Continue aspirin for stroke prevention Coronary artery disease involving shoshone-bannock coronary artery of shoshone-bannock heart without angina pectoris -continue aspirin, metoprolol, isosorbide dinitrate, amlodipine, simvastatin, current doses HTN, goal below 140/90 -blood pressure well controlled today. Continue amlodipine, furosemide, isosorbide dinitrate, metoprolol, current doses LBBB (left bundle branch block) -repeat echocardiogram Bilateral carotid artery stenosis Most recent carotid duplex took place in June, with less than 50% stenosis bilaterally. Dyslipidemia Continue simvastatin, current dose. DISPOSITION: Follow Up: Return in about 6 months (around 01/29/2024) for Clinic Visit. | For: Clinic Visit | Check-out note: Echo within 2 months at [facility] Mark Singh DO Cardiology, [address] [place] [address] This chart was completed in part utilizing [employer] Speech Voice Recognition Software. Grammatical errors, random word insertions, prounoun errors, and incomplete sentences are an occasional consequence of this system due to software limitations, ambient noise, and hardware issues. Any formal questions or concerns about the content, text, or information contained within the body of this dictation should be directly addressed to the provider for clarification. documented in this encounter Nursing Notes * Mary Leyva RN - 07/31/2023 3:42 PM EST Examination Room: 12 Name: Makenna Harris Date of : (1935). Reason for Visit: Follow up Interim Hospitalization(s): No Problems/Concerns: Reports feeling well from cardiac standpoint. Also notes dull ache to area of head where she sustained a fall years ago. Chest Pain/SOB: Denies [facility] Discussed: Not applicable My [facility] is a way you can talk to your provider online through e-mail. Would you like to sign up? I can activate it for you? ALREADY ACTIVE Patient was instructed to not get up on the exam table until directed and assisted by their provider; patient is to remain seated in the chair/ wheelchair/ exam table for fall prevention and safety reasons. Patient is aware to have assistance to step down off exam table with personnel. Patient voiced full comprehension of instructions. documented in this encounter Plan of Treatment Upcoming Encounters Date Type Department Care Team (Late st Contact Info) Description 08/21/2023 10:00 AM EST Office Visit Podiatry [facility] [address] [place] [address] Adriana Meza DPM [address] [facility] [place] [address] 08/28/2023 11:15 AM EST [facility] [address] [place] [address] Isaiah Valle, DO [address] [place] [address] 01/22/2024 8:40 AM EDT [facility] Visit [facility] [address] [facility] [phone] Klaus Douglas MD [address] [place] [facility] [place] [address] Scheduled Orders Name Type Priority Associated Diagnoses Orde r Schedule ECHO, COMPLETE (2D), TRANS-THORACIC Echocardiology Routine VELIZ (dyspnea on exertion) Coronary artery disease involving shoshone-bannock coronary artery of shoshone-bannock heart without angina pectoris LBBB (left bundle branch block) S/P TAVR (transcatheter aortic valve replacement) Expected: 07/31/2023 (Approximate), Expires: 07/31/2024 Scheduled Procedures Name Priority Associated Diagnoses Date/Ti me ESOPHAGOGASTRODUODENOSCOPY ( EGD), FLEXIBLE, TRANSORAL, DIAGNOSTIC Recall Esophageal dysphagia Health Maintenance Due Date Last Done Comments Alpha-1 Antitrypsin 1953 Zoster Vaccines (2 of 2) 07/25/2013 05/30/2013, 05/18 *BISPHONATE OR OTHER ACCEPTABLE MEDICATION NEEDED FOR OSTEOPOROSIS (REFER TO SMARTSET #1146) 05/20/2019 Depression Screening 09/20/2023 09/20/2022 Albumin/Creatinine Ratio 07/23/2024 07/23/2023, 12/2021 CKD HGB USE SMARTSET 93096 07/23/202407/23, 07/21/2022, 07/21/2022, Additional history exists CKD PHOS USE SMARTSET 92716 07/23/202402/2023, 07/21/2022, 05/03/2021, Additional history exists O2 ASSESSMENT COMPLETED IN PAST YEAR FOR COPD 07/23/2024 07/23/2023 DTaP,Tdap,and Td Vaccines (2 - Td or Tdap) 04/30/2031 04/30/2021, 06/02/2008, 12/16/1993, Additional history exists Pneumococcal Vaccine: 65+ Years Completed 11/03/2014, 07/02/2001 Influenza Vaccine (FLU shot) Completed , 07/04/2022, 07/02/2021, Additional history exists COVID-19 Vaccine Completed 07/24/2023, 08/2023, 08/24/2021, Additional history exists GARDASIL-HPV IMMUNIZATION SERIES Aged [...] as of this encounter Visit Diagnoses Diagnosis VELIZ (dyspnea on exertion)- Primary Other dyspnea and respiratory abnormality Coronary artery disease involving shoshone-bannock coronary artery of shoshone-bannock heart without angina pectoris LBBB (left bundle branch block) Other left bundle branch block S/P TAVR (transcatheter aortic valve replacement) Heart valve replaced by other means Diastolic dysfunction Heart disease, unspecified Dyslipidemia Other and unspecified hyperlipidemia Bilateral carotid artery stenosis Occlusion and stenosis of multiple and bilateral precerebral arteries without mention of cerebral infarction documented in this encounter Advance Directives Latest [...] and were consensually agreed upon. Care Teams Motor And Generator Brush Maker Relationship Specialty Start Date End Date Klaus Douglas MD [address] [place] [address] PCP - General 07/02/01 documented as of this encounter"
--- OUTSIDE RECORDS SUMMARY | 2023-08-05 10:01 | External Medical Summary | Continuity of Care Document ---
Author Name Unknown Organization [facility] [id number] Address [address] [place] [phone] Care Team Providers Care Ivf Embryologist Name Role Phone Klaus Douglas Primary Care Physician [phone] [id number] Date(s): 06/11/23 - 06/11/23 [facility] 0 [employer] [facility] [address] [facility] [address] [place], [place] [id number] Encounter Diagnosis History of lumbar fusion(Discharge Diagnosis) - 06/11/23 Lumbar facet arthropathy(Discharge Diagnosis) - 06/11/23 Discharge Disposition: Home or Self Care Attending Physician: MD Muniz Gregory G Allergies, Adverse Reactions, Alerts Substance Reaction Severity Status atenolol Active sulfa drugs Active Assessment and Plan Extracted from: Title:Follow Up Visit Author:MD Muniz Gregory G Date:06/11/23 1.History of lumbar fusion The patient's fusion is stable she is not exhibiting any radicular complaints or concerns 2.Lumbar facet arthropathy Because of the multilevel fusion she has motion at L5-S1 she needs to make up the loss of the lower lumbar motionexaggerated motion at this jointleading to facet arthropathy. Treatment options were reviewed with hershe wishes to proceed with a right L55 S1 facet joint injection under fluoroscopic guidance she has had an ASA level 2 status for the injectionwe will follow-up after the injection. Medications acetaminophen-HYDROcodone 325 mg-5 mg oral tablet TAKE 1 OR 2 TABLETS BY MOUTH EVERY 6 HOURS NEEDED FOR MILD PAIN Start Date: 05/16/21 Status: Ordered Albuterol (Eqv-Ventolin HFA) 90 mcg/inh inhalation aerosol 2 puff, USE 2 INHALATIONS INHALED FOUR TIMES DAILY NEEDED FOR SHORTNESS OF BREATH OR WHEEZING Start Date: 06/11/23 Status: Ordered amLODIPine 10 mg oral tablet TAKE HALF A TABLET BY MOUTH DAILY Start Date: 05/26/19 Status: Ordered amoxicillin 500 mg oral capsule Start: 05/26/19 8:43:00 EDT, 4 cap, PO, As indicated, Disp# 12 cap, Refills: 3, one hour before dental and other procedures as directed, Pharmacy: [facility]/pharmacy #[id number] Start Date: 05/26/19 Status: Ordered Anoro Ellipta 62.5 mcg-25 mcg/inh inhalation powder Start: 05/16/21 13:02:00 EDT Start Date: 05/16/21 Status: Ordered Combivent Respimat 20 mcg-100 mcg/inh inhalation aerosol INHALE 1 PUFF BY MOUTH EVERY 4 HOURS NEEDED Start Date: 05/26/19 Status: Ordered ergocalciferol 1.25 mg (50,000 intl units) oral capsule TAKE 1 CAPSULE BY MOUTH ONCE A WEEK Start Date: 05/16/21 Status: Ordered FLUoxetine 10 mg oral capsule Start: 06/11/23 9:58:00 EDT, 1 cap, PO, Daily Start Date: 06/11/23 Status: Ordered furosemide 20 mg oral tablet Start: 06/11/23 9:59:00 EDT, 1 tab, PO, Daily Start Date: 06/11/23 Status: Ordered isosorbide dinitrate 20 mg oral tablet Start: 05/26/19 8:30:00 EDT, 1 tab, PO, q6h Start Date: 05/26/19 Status: Ordered Metoprolol Succinate ER 25 mg oral tablet, extended release TAKE 0.5 TABS BY MOUTH DAILY. Start Date: 05/26/19 Status: Ordered omeprazole 40 mg oral delayed release capsule Start: 06/11/23 9:58:00 EDT, 1 cap, PO, Daily Start Date: 06/11/23 Status: Ordered ondansetron 4 mg oral tablet, disintegrating Start: 05/16/21 13:05:00 EDT Start Date: 05/16/21 Status: Ordered pantoprazole 20 mg oral delayed release tablet Start: 06/11/23 9:58:00 EDT, 1 tab, PO, Daily Start Date: 06/11/23 Status: Ordered simvastatin 20 mg oral tablet Start: 06/11/23 9:57:00 EDT, 1 tab, PO, qhs Start Date: 06/11/23 Status: Ordered Trelegy Ellipta 100 mcg-62.5 mcg-25 mcg/inh inhalation powder Start: 06/11/23 9:57:00 EDT, 1 puff, inhaled, Daily Start Date: 06/11/23 Status: Ordered zolpidem 5 mg oral tablet Start: 06/11/23 9:58:00 EDT, 1 tab, PO, qhs, PRN: as needed for sleep Start Date: 06/11/23 Status: Ordered Mental Status 06/11/23 Barriers to Learning one year None evide nt Mandatory Health Literacy Documentation Yes Health Literacy Communication Barriers N ever Primary Language Maori Problem List Condition Confirmation Course Effective Dates Status H ealth Status Informant Arthritis Confirmed Active Lumbar facet arthropathy Confirmed Active Bursitis of left hip Confirmed Active Depression 1 Confirmed Active GERD Confirmed Active S/P total hip arthroplasty Confirmed Active Left hip pain Confirmed Active Hip replacement 2 Confirmed Active History of lumbar fusion Confirmed Active HTN (hypertension) Confirmed Active Hyperlipidemia Confirmed Active Left knee pain Confirmed Active LBP (low back pain) Confirmed Active Primary osteoarthritis of left hip Confirmed Active Osteoarthritis of left hip Confirmed Active 1anxiety 2Right hip/DJD Diagnosis Diagnosis Type Effective Dates Health Status Clinical Service Informant History of lumbar fusion Discharge Diagnosis 06/11/23 Lumbar facet arthropathy Discharge Diagnosis 06/11/23 Procedures Procedure Date Related Diagnosis Body Site Status B/L Cataract Sx 2008 Completed incarcerated hernia 2006 Compl eted Right LAMONT 2004 Completed Back Sx 2001 Completed Right CTR 1991 Completed Hysterectomy 1972 Completed Hemorrhoids Completed Vital Signs Most recent to oldest [Reference Range]: 1 Height 155.5 cm (06/11/23 9:59 AM) Patient Weight 74 kg (06/11/23 9:59 AM) Body Mass Index 30.6 kg/m2 (06/11/23 9:59 AM) Social History Social History Type Response Smoking Status Never smoked cigaret isidra Sex Female Ortho Outpt Note * MD Flavio, Hermelindo Fuentes: PERFORM Event Display: Ortho Outpt Note Authored Date: [id number] Chief Complaint low back pain 04/21/10 Primary Care Provider MD Stella, Klaus Jaimes Subjective Patient is an 87-year-old female who is accompanied by her . She reports that she has had low back pain since 1969. 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 I had seen her and injected her right SI joint back in 2005with some success. She reports this painis localizing to the right lower lumbar spineand is nonradiatingshe is localizing it to the level of the facet joint on her right side. It is exacerbated with prolonged standing twistingbending vacuuming and sweeping. Her who accompanies her today regularly puts patches on that area to try to help her with the pain. She quantifies pain today as a8 pleasant female seated comfortablyin no apparent distressout of 10 currently 10 out of 10 at the worst 5 out of 10 at the least Objective Vitals & Measurements WT:74kg WT:74.000kg(Dosing) Physical Exam Her lumbar paraspinal muscles were palpatedat the level of the incision off to the right side at the L5-S1 facet area was tenderness this was exacerbated by extension rotationno sciatic notch sensitivity no SI joint irritationshe had normal lower extremity strength negative seated straight leg raises intact sensation distally at the L4 L5-S1 dermatomes. Diagnostic Results I reviewedher scalp CAT scan films of her abdomen and pelvis which showeda 3 level fusion involving L5 L4 [id number] with intact hardware and significant disc space lossand spondylitic changes below the level of fusion at L5-S1. Assessment/Plan 1.History of lumbar fusion The patient's fusion is stable she is not exhibiting any radicular complaints or concerns 2.Lumbar facet arthropathy Because of the multilevel fusion she has motion at L5-S1 she needs to make up the loss of the lowerlumbar motionexaggerated motion at this jointleading to facet arthropathy. Treatment options were reviewed with hershe wishes to proceed with a right L55 S1 facet joint injection under fluoroscopic guidance she has had an ASA level 2 status for the injectionwe will follow-up after the injection. Electronic Signature on File CC: Goran Pappas PA-C [id number] [facility] [address] [place] [id number] Electronically Reviewed/Signed by: Hermelindo Muniz MD Author Signature Dt/Tm:06/11/2023 10:30 AM [employer] and Physical Medicine & [employer] TRUDY Patient Care team information Care Team Personnel Name: MD Douglas Brett R Position: Referring DIRECT Member Role: Primary Care Provider Address: Address: [address] [facility] [place] [address] Care Team Related Persons Name: ESPERANZA EUGENE Address: home [address] [facility] [place] [phone] Name: RASHARD NEWMAN
--- OUTSIDE RECORDS SUMMARY | 2023-08-05 10:01 | External Medical Summary | Summary of Care ---
Author Name Unknown Organization [facility] Address [address] [place] [facility] [place] [address] Phone [phone] Care Team Providers Care Director Workers Compensation Name Role Phone Klaus Douglas MD Primary Care Provider +1- [phone] Reason for Visit * Reason Comments Follow Up DIL/OCT OD * Precert (Routine) - Authorized Specialty Diagnoses / Procedures Referred By Renae alcala Referred To Contact Ophthalmology Diagnoses Exudative age-related macular degeneration of right eye with active choroidal neovascularization (HCC) Procedures INJECTION OF EYE DRUG INECTION,BEVACIZUMAB, 10 MG Isaiah Valle DO [address] [place] [address] Referral ID Status Reason Start Date Expiration Date V isits Requested Visits Authorized [id number] Authorized Precert 2020 09/16/2099 99 99 Encounter Details Date Type Department Care Team Description 06/13/2023 Office Visit Ophthalmology, [facility] [address] [place] [address] Isaiah Valle DO [address] [place] [address] Exudative age-related macular degeneration of right eye with active choroidal neovascularization (HCC)* Allergies Active Allergy Reactions Severity Noted Date Comments Atenolol 06/15/1999 stomach pain Lisinopril 06/27/2010 hyperkalemia Sulfa Antibiotics 2020 Sulfamethoxazole 10/19/2006 Tingling, itch, s.o.b. documented as of this encounter (statuses as of 06/13/2023) Medications Medication Sig Dispensed Refills Start Date [...] daily. 30 Tab 11 05/30/2021 Active Nystatin 505192 UNIT/GM External Powder (Nystop) Apply topically to [...] 08/24/2022 Active Vitamin D (Ergocalciferol) 1.25 MG (66450 UT) Oral Capsule (Drisdol)Indications: Vitamin D deficiency [...] ONLY . 15 Tablet 1 03/19/2023 Active Zolpidem Tartrate 5 MG Oral Tablet (Ambien) Take 1 Tablet by mouth at bedtime as needed for Sleep. 90 Tablet 0 03/21/2023 Active Isosorbide Dinitrate 20 MG Oral Tablet [...] the morning. 90 Capsule 1 05/11/2023 Active HYDROcodone-Acetamino phen 5-325 MG Oral TabletIndications:Chr onic bilateral low back pain without sciatica Take 1 Tablet by mouth every 8 hours as needed for Pain, Mild or Pain, Severe. 90 Tablet 0 05/11/2023 Active Azithromycin 250 MG Oral Tablet (Zithromax Z-Kiet)Indications:Acu te cough,COPD, group B, by GOLD 2017 classification ([facility]),Coronary artery disease involving [place] coronary artery of [place] heart without angina pectoris,COPD exacerbation ([facility]) Take two tablets by mouth on first day, then 1 tablet daily until gone 6 Tablet 0 05/15/2023 Active Amoxicillin-Pot Clavulanate 875-125 MG Oral Tablet (Augmentin)Indication s:Acute cough,COPD, group B, by GOLD 2017 classification (HCC),Coronary artery disease involving [place] coronary artery of [place] heart without angina pectoris,COPD exacerbation (HCC) Take 1 Tablet by mouth in the morning and 1 Tablet before bedtime. 20 Tablet 0 05/31/2023 Active Simvastatin 20 MG Oral Tablet (Zocor) TAKE BY MOUTH 1 TABLET IN THE EVENING. 90 Tablet 1 06/11/2023 Active Hospital, Clinic, or Other Facility Administered Medication Ordered Dose Route Frequency Start Date End Date Status albuterol (PROVENTIL HFA) inhaler 4 PuffIndications:COPD, severe (HCC),VELIZ (dyspnea on exertion) 4 Puff IN Q4H PRN 06/29/2017 Act jenna bevaCIZumab (Avastin) inj 1.25 mgIndications:Exudative age-related macular degeneration of right eye with active choroidal neovascularization (HCC) 1.25 mg IZ PRN 10/30/2022 3 Discontinued documented as of this encounter (statuses as of 06/13/2023) Active Problems Problem Noted Date Exudative age-related macula r degeneration of right eye with active choroidal neovascularization 11/07/2021 LBBB (left bundle branch block) 06/29/20 21 Chronic kidney disease, stage 3b 021 Overview: Per CKD protocol COPD, group B, by GOLD 2017 classificati on 04/25/2021 Overview: Per COPD GOLD Classification History of cataract extraction History of spinal surgery 04/19/2021 History of hysterectomy 04/19/2021 History of cholecystectomy 04/19/2021 History of total hip replacement 021 Overview: Right hip/DJD Right hip/DJD S/P TAVR (transcatheter aortic valve rep lacement) 08/25/2019 Numbness and tingling 06/23/2019 Stenosis of left vertebral artery 2018 Mild emphysema 02/20/2019 Severe aortic stenosis 02/20/2019 Hyperparathyroidism, secondary renal Bilateral carotid artery stenosis 2017 MARILEE (generalized anxiety disorder) 02/19 Diastolic dysfunction 07/26/2017 Coronary artery disease invo lving [place] coronary artery without angina pectoris 07/26/2017 Osteoarthritis of left knee 06/07/2016 Hypertension 04/12/2016 Exudative macular degeneration 6 Obesity, Class I, BMI 30.0-34.9 (see act ual BMI) 07/03/2013 Overview: bmi= 31.86 07/03/13 Osteoporosis 02/19/2013 Stenosis of carotid artery 07/26/2012 Dyslipidemia 09/01/2009 Overview: Per Lipid Taxonomy. Vitamin D deficiency 11/21/2008 Unilateral inguinal hernia 05/30/2007 Gastroesophageal reflux disease 07/02/20 documented as of this encounter (statuses as of 06/13/2023) Resolved Problems Problem Noted Date Resolved Date Stage 3 chronic kidney disease 11/07/2021 0 11/30/2021 Fall 05/04/2021 09/14/2021 Hip dislocation, left, initial encounter 021 11/07/2021 Subdural hematoma 05/02/2021 11/07/2021 Subarachnoid hemorrhage foll owing injury, with loss of consciousness 05/02/2021 03/15/2022 Fall 04/19/2021 09/14/2021 History of surgical procedure 04/19/2021 History of surgical procedure 04/19/2021 Chronic obstructive pulmonary disease 07/26/2020 05/03/2021 Overview: Per COPD GOLD Classification Chronic kidney disease, stage III (moderate) 05/201905/03/2021 Overview: Per CKD protocol Uncontrolled type 2 diabetes mellitus with hyper glycemia 01/09/2019 02/20/2019 Kidney disease, chronic, stage IV (GFR 15-29 ml/ min) 10/10/2018 10/31/2018 Benign hypertension with chronic kidney disease, stage III 02/19/2018 08/25/2019 Abnormal CXR (chest x-ray) 06/29/201707/18 Deep vein thrombosis (DVT) p rophylaxis prescribed at discharge 06/21/2016 07/18/2017 Preoperative cardiovascular examination 06/07/20 16 07/18/2017 Hyperlipidemia 07/14/2015 09/14/2021 Aortic valve stenosis 07/14/2015 02/20/2019 Kidney disease, chronic, stage III (GFR 30-59 ml /min) 11/10/2013 02/28/2018 Overview: Per CKD protocol #1 UTI (urinary tract infection) 07/07/2013 Shakiness 07/03/2013 04/12/2016 Tingling 07/03/2013 04/12/2016 Tobacco use disorder 07/03/2013 04/12/2016 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 LAST PFT -01/05/10 COPD, SEVERE 07/27/2011 02/20/2019 Overview: PER COPD PROTOCOL #24. LAST PFT -01/05/10 COPD with emphysema 04/18/2010 07/27/2011 Tobacco use disorder 12/07/2009 07/03/2013 HTN, goal below 140/90 07/02/2001 6 Menopause 07/02/2001 06/24/2013 Hemorrhoids, external without complications 06/1702/20/2019 Mixed dyslipidemia 09/03/2000 09/01/2009 Overview: Per Lipid Taxonomy. Encounter for long-term (current) use of medicat ions 09/03/2000 06/24/2013 Overview: ICD-10 update of inactive term Tobacco use disorder 07/27/2000 07/02/2001 Respiratory symptoms 07/27/2000 06/24/2013 Overview: ICD-10 update of inactive term documented as of this encounter (statuses as of 06/13/2023) Immunizations Name Administration Dates Next Due COVID-19 mRNA, LNP-s, No Pre serve, 2-Dose Series (Aqwise) 08/24/2021,11/26/2020,11/05/2020 Covid-19, Mrna, Lnp-s, Pf, B ivalent, 30 Mcg, IM, 12 yrs and above (Pfizer) 09/28/2022 Pneumococcal Conjugate Vacc, 13 Valent (Prevnar) 11/03/2014 Pneumococcal Polysaccharide PPV23 (Pneumovax) 07/02/2001 Season Influenza, Quad, PF, Adjuvanted, 65+ Yrs, IM (FLUAD) 07/01/2020 Seasonal Influenza, PF, 6 mo ns & Above, IM , (Flulaval) 06/27/2018,07/02/2017 Seasonal Influenza, Quadriva lent Hd (Fluzone Hd) 07/04/2022,07/02/2021 Seasonal Influenza, Quadriva lent, No Preserve, IM [...] drink = 0.6 oz pur e alcohol) Food Insecurity Answer Date Recorded Within the past 12 months, y ou worried that your food would run out before you got money to buy more. Never true 03/02/2020 Within the past 12 months, t he food you bought just didn't last and you didn't have money to get more. Never true 03/02/2020 Sex Assigned at Date Recorded Female 05/23/2019 9:56 AM E DT Job Start Date Occupation Industry Not on [...] as of this encounter Progress Notes * Isaiah Valle, DO - 06/13/2023 11:15 AM EDT [facility] [place] Nursing notes reviewed. Eye vitals reviewed. Mood and Affect: normal HPI: Makenna Harris is an 87 year old female who presents for AMD No other eye complaints. Denies significant pain. Base Eye Exam Visual Acuity (Snellen - Linear) Right Left Dist cc 20/150 20/350 -2 Dist ph cc NI NI Correction: Glasses Tonometry (11:22 AM) Right Left Pressure 10 t Pupils Dark Light Shape React APD Right 2.5 2.5 Round Minimal None Left 3 2.5 Round Sluggish None Visual Pena (Counting fingers) Right Left Full Full Extraocular Movement Right Left Full, Ortho Full, Ortho Neuro/Psych Oriented x3: Yes Mood/Affect: Normal Dilation Both eyes: 0.5% Proparacaine @ 11:22 AM Dilation #2 Right eye: 1.0% Mydriacyl, 2.5% Phenylephrine @ 11:22 AM Dilation Comments Patient cautioned that effects of dilation may last 2-7 hours dependant upon individual reaction. It was discussed that driving while dilated is not recommended. Strabismus Exam Correction: sc Observations: Ortho Distance Near Near +3DS N Bifocals cover/uncover, and alternate cover EXTERNAL: The ocular adnexae are unremarkable. SLE: Lids/Lashes: wnl OU Conjunctiva/Sclera: quiet OU Cornea: clear OU Anterior Chamber: deep and quiet OU Iris: normal OU; no NVI OU Lens: PCIOL OU Dilated fundus exam OD: vitreous: clear optic nerve: 0.2, no edema/pallor/NVD macula: +GA, heme--resolved, srfibrosis vessels: wnl periphery: wnl, no RT/RD Dilated fundus exam OS: 10/30/2022 vitreous: clear optic nerve: 0.2, no edema/pallor/NVD macula: +GA, srfibrosis vessels: wnl periphery: wnl, no RT/RD OCT Interpretation: OD: drusen/atrophy, no cme/srlfuid - STABLE, prior STABLE OS: 10/30/2022 resolved SRFluid, +drusen/atrophy/fibrosis/ORT - stable A/P: 1. Age-related macular degeneration OD: wet - s/p Avastin (04/02/23, 01/16/23, 10/30/22, 08/16/22, 06/08/22, 04/11/22, 02/09/22, 12/15/21, 10/17/21, 08/22/21, 10--, 8--, 6--21, 12-22-20, 11-02-, 09-07-20, 07/28/20, 06/22/20)--improved - 10 weeks since last injection OS: wet - s/p Eylea OS (07/19/16, 06/07/16, 03/14/16, 01/04/16, 11/09/15, 09/22/15, 08/23/15) -no benefit to further injections OS -ex-smoker -recommend AREDS2 MVI as directed and Amsler grid qday -had low vision shawna w/ Dr. Chelsey Flores 2. Pseudophakia OU -stable, by Dr. Levi -submitted DL-13 on 12/22/20 TIMEOUT PROCEDURE: correct patient identity-YES correct procedure and consent-YES verified side and site-YES correct patient position-YES all necessary equipment/prior studies present-YES reviewed special requirements of this patient-YES PROCEDURE: Intravitreal injection of Avastin 1.25mg OD INFORMED CONSENT: Patient is aware that this is an off-label use of Avastin and that Avastin is not FDA approved for this use. Risks, benefits and alternatives have been discussed with the patient. Risks include, but are not limited to: retinal tears, detachments, hemorrhage, glaucoma, infection, cataracts, need formore procedures and the potential risk of arterial thromboembolic events following use of intravitreal VEGF inhibitors defined as nonfatal stroke, nonfatal myocardial infarction or vascular . Patient is aware of these risks and consents to the procedure. DESCRIPTION OF PROCEDURE: The procedure site was confirmed. Topical proparacaine was applied to the surface of the eye after which subconjunctival anesthetic was administered. The area was prepped in the standard aseptic manner with 5% Betadine solution. An eyelid speculum was placed and 0.05 ml of a 25mg/ml solution of Avastin was injected 3.75 mm posterior to the limbus into the midvitreous cavity with a 30 gauge short needle. The Betadine was flushed from the eye, the eye speculum was removed and optic nerve perfusion was insured. The patient tolerated the procedure without difficulty and was given followup instructions and instructed to use ophthalmic ointment 3x/day as needed. Isaiah Valle DO, performed the procedure in its entirety. F/u 10-12 weeks - dilate OU and OCT OD Isaiah Valle DO 222 CC: Daniela Leyva, OD PCP: Klaus Douglas MD documented in this encounter Nursing Notes * Nae Barrios RN - 06/13/2023 11:37 AM EDT Makenna Harris to receive 19 Avastin 1.25mg Injection of the Right eye. Correct eye confirmed with patient and marked by Isaiah Valle DO Avastin 1.25mg lot # [id number] Exp. Date: 07/09/23 * Nae Barrios RN - 06/13/2023 11:15 AM EDT Makenna Harris is a 87 year old year old female who presents for AMD OU. Last Office Visit: 04/02/2023 (in office), Visit date not found (telemedicine) Patient currently states no change in vision. Are you diabetic? No Do you drive? No OCT image(s) of right eye acquired and filed/scanned into chart. documented in this encounter Miscellaneous Notes * Addendum Note - Nae Barrios RN - 06/13/2023 11:40 AM EDTAddended by: NAE BARRIOS on: 06/13/2023 11:40 AM Modules accepted: Orders documented in this encounter Plan of Treatment Upcoming Encounters Date Type Specialty Care Team Description 06/20/2023 Imaging Radiology 07/23/2023 Office Visit Family Medicine Klaus Douglas MD [address] [place] [address] 08/21/2023 Office Visit Podiatry Adriana Meza DPM [address] [facility] [place] [address] 08/28/2023 Office Visit Ophthalmology Isaiah Valle DO [address] [place] [address] 09/18/2023 Office Visit Family Medicine Klaus Douglas MD [address] [place] [address] Scheduled Orders Name Type Priority Associated Diagnoses Orde r Schedule RETINA SCAN DIAGNOSTIC IMAGE, POSTERIOR Procedures Routine Exudative age-related macular degeneration of right eye with active choroidal neovascularization (HCC) Ordered: 06/13/2023 Scheduled Procedures Name Priority Associated Diagnoses Date/Ti me ESOPHAGOGASTRODUODENOSCOPY ( EGD), FLEXIBLE, TRANSORAL, DIAGNOSTIC Recall Esophageal dysphagia Health Maintenance Due Date Last Done Comments Alpha-1 Antitrypsin 1953 Zoster Vaccines (2 of 2) 07/25/2013 05/30/2013, 05/18 *BISPHONATE OR OTHER ACCEPTABLE MEDICATION NEEDED FOR OSTEOPOROSIS (REFER TO SMARTSET #1146) 05/20/2019 Influenza Vaccine (FLU shot) (#1) 2023 07/04/2022, 07/02/2021, 07/02/2021, Additional history exists Albumin/Creatinine Ratio 07/21/2023 07/21/2022 CKD HGB USE SMARTSET 89226 07/21/202307/21, 07/21/2022, 05/04/2021, Additional history exists CKD PHOS USE SMARTSET 99254 07/21/2023 11/12/2021, 05/03/2021, 05/02/2021, Additional history exists Depression Screening 09/20/2023 09/20/2022 O2 ASSESSMENT COMPLETED IN PAST YEAR FOR COPD 05/15/2024 05/15/2023 DTaP,Tdap,and Td Vaccines (2 - Td or Tdap) 04/30/2031 04/30/2021, 06/02/2008, 12/16/1993, Additional history exists Pneumococcal Vaccine: 65+ Years Completed 11/03/2014, 07/02/2001 COVID-19 Vaccine Completed 09/28/2022, 04/2021, 11/26/2020, Additional history exists GARDASIL-HPV IMMUNIZATION SERIES Aged [...] as of this encounter Visit Diagnoses Diagnosis Exudative age-related macular degeneration of right eye with active choroidal neovascularization (HCC)- Primary documented in this encounter Advance Directives Latest [...] and were consensually agreed upon. Care Teams Director Workers Compensation Relationship Specialty Start Date End Date Klaus Douglas MD [facility] [place] [address] PCP - General 10/16/01 documented as of this encounter
--- OUTSIDE RECORDS SUMMARY | 2023-08-05 10:01 | External Medical Summary | Summary of Care ---
Author Name Unknown Organization [facility] Address [address] [facility] [place] [address] Phone [phone] Care Team Providers Care Plastic Sewer Name Role Phone Klaus Douglas MD Primary Care Provider +1- [phone] Reason for Visit * Reason Comments Follow Up DIL/OCT OD * Precert (Routine) - Authorized Specialty Diagnoses / Procedures Referred By Renae alcala Referred To Contact Ophthalmology Diagnoses Exudative age-related macular degeneration of right eye with active choroidal neovascularization (HCC) Procedures INJECTION OF EYE DRUG INECTION,BEVACIZUMAB, 10 MG Kayleigh Valle DO [address] [place] [address] Referral ID Status Reason Start Date Expiration Date V isits Requested Visits Authorized [id number] Authorized Precert 2020 09/16/2099 99 99 Encounter Details Date Type Department Care Team Description 06/13/2023 Office Visit Ophthalmology, [facility] [address] [place] [address] Kayleigh Valle DO [address] [place] [address] Exudative age-related macular degeneration of right eye [...] daily. 30 Tab 11 05/30/2021 Active Nystatin 707824 UNIT/GM External Powder (Nystop) Apply topically to [...] 08/24/2022 Active Vitamin D (Ergocalciferol) 1.25 MG (04292 UT) Oral Capsule (Drisdol)Indications: Vitamin D deficiency [...] cough,COPD, group B, by GOLD 2017 classification ([facility]),Coronary artery disease involving [place] coronary artery of [place] heart without angina pectoris,COPD exacerbation ([facility]) Take two tablets by mouth on first day, then 1 tablet daily until gone 6 Tablet 0 05/15/2023 Active Amoxicillin-Pot Clavulanate 875-125 MG Oral Tablet (Augmentin)Indication s:Acute cough,COPD, group B, by GOLD 2017 classification (HCC),Coronary artery disease involving [place] coronary artery of [place] heart without angina pectoris,COPD exacerbation (HCC) Take [...] neovascularization (HCC) 1.25 mg IZ PRN 06/13/2023 4 Active ROPivacaine (Naropin) inj 1.5 mgIndications:Exudative age-related macular degeneration of right eye with active choroidal neovascularization (HCC) 1.5 mg IJ PRN 06/13/2023 4 Active bevaCIZumab (Avastin) inj 1.25 mgIndications:Exudative age-related [...] dysfunction 07/26/2017 Coronary artery disease invo lving [place] coronary artery without angina pectoris 07/26/2017 Osteoarthritis of left knee 06/07/2016 Hypertension 04/12/2016 Exudative macular degeneration 6 Obesity, Class I, BMI 30.0-34.9 (see act ual BMI) 07/03/2013 Overview: bmi= 31.86 07/03/13 Osteoporosis 02/19/2013 Stenosis of carotid artery 07/26/2012 Dyslipidemia 09/01/2009 Overview: Per Lipid Taxonomy. Vitamin D deficiency 11/21/2008 Unilateral inguinal hernia 05/30/2007 Gastroesophageal reflux disease 07/02/20 01 documented as of this encounter (statuses as [...] as of this encounter Progress Notes * Kayleigh Valle DO - 06/13/2023 11:15 AM EDT [facility] [place] Nursing notes reviewed. [...] 08/16/22, 06/08/22, 04/11/22, 02/09/22, 12/15/21, 10/17/21, 08/22/21, 06-21-, 8--, -12-05, 12-22-20, 11-02-20, 09-07-20, 07/28/20, 06/22/20)--improved - 10 weeks since [...] to use ophthalmic ointment 3x/day as needed. Kayleigh Valle DO, performed the procedure in its entirety. F/u 10-12 weeks - dilate OU and OCT OD Kayleigh Valle DO 222 CC: Daniela Leyva, OD PCP: Klaus Douglas MD documented in this encounter Nursing Notes * Nae Ceballos RN - 06/13/2023 11:37 AM EDT Makenna Harris to receive 19 Avastin 1.25mg Injection of the Right eye. Correct eye confirmed with patient and marked by Kayleigh Valle DO Avastin 1.25mg lot # [id number] Exp. Date: 07/09/23 * Nae Ceballos RN - 06/13/2023 11:15 AM EDT Makenna [...] Miscellaneous Notes * Addendum Note - Nae Ceballos RN - 06/13/2023 11:40 AM EDTAddended by: NAE CEBALLOS on: 06/13/2023 11:40 AM Modules accepted: Orders * Addendum Note - Kayleigh Valle DO - 06/13/2023 11:15 AM EDTAddended by: KAYLEIGH VALLE on: 06/13/2023 01:56 PM Modules accepted: Orders documented in this encounter Plan of Treatment Upcoming Encounters Date Type Specialty Care Team Description 06/20/2023 Imaging Radiology 07/23/2023 Office Visit Family Medicine Klaus Douglas MD [address] [place] [facility] [place] [address] 08/21/2023 Office Visit Podiatry Adriana Meza DPM [address] [place] [address] 08/28/2023 Office Visit Ophthalmology Kayleigh Valle DO [address] [place] [address] 09/18/2023 Office Visit Family Medicine Klaus Douglas MD [address] [facility] [place] [address] Scheduled Orders Name Type Priority Associated Diagnoses [...] Ratio 07/21/2023 07/21/2022 CKD HGB USE SMARTSET 89067 07/21/202307/21, 07/21/2022, 05/04/2021, Additional history exists CKD PHOS USE SMARTSET 71720 07/21/2023 11/12/2021, 05/03/2021, 05/02/2021, Additional history exists [...] and were consensually agreed upon. Care Teams Plastic Sewer Relationship Specialty Start Date End Date Klaus Douglas MD [address] [place], [place] [id number] PCP - General 07/02/01 documented as of this encounter
--- OUTSIDE RECORDS SUMMARY | 2023-08-05 10:01 | External Medical Summary | Summary of Care ---
Author Name Unknown Organization [facility] Address [address] [place] [address] Phone [phone] Care Team Providers Care Kiln Car Repairer Name Role Phone Cholo Franks MD Primary Care Provider [phone]- [phone] Reason for Visit * Reason Onset Date Comments Medication Refill 06/19/2023 Encounter Details Date Type Department Care Team Description 06/19/2023 Refill [facility] [address] [place] [address] Cholo Franks MD [address] [place] [address] Chronic bilateral low back pain without sciatica Allergies Active Allergy Reactions Severity Noted Date Comments Atenolol 06/15/1999 stomach pain Lisinopril 06/27/2010 hyperkalemia Sulfa Antibiotics 2020 Sulfamethoxazole 10/19/2006 Tingling, itch, s.o.b. documented as of this encounter (statuses as of 06/20/2023) Medications Medication Sig Dispensed Refills Start Date End Date Status Multiple Vitamins-Minerals (PRESERVISION AREDS 2) Capsule Take 1 Capsule by mouth in the morning and 1 Capsule before bedtime. 0 Active Ipratropium-Albutero l 20-100 MCG/ACT Inhalation Aerosol Solution Inhale 1 [...] daily. 30 Tab 11 05/30/2021 Active Nystatin 583207 UNIT/GM External Powder (Nystop) Apply topically to affected area 3 times a day. Apply to affected area of right lower abdomen for up to 4 weeks. 45 g 0 08/01/2021 Active Fluticasone-Umeclidi n-Vilant 100-62.5-25 MCG/INH Aerosol Powder Breath Activated (TRELEGY [...] Active Ondansetron 4 MG Oral Tablet Disintegrating (Zofran)Indications: S/P laparoscopic cholecystectomy,Naus ea TAKE 1-2 TABLETS BY MOUTH EVERY 8 HOURS NEEDED FOR NAUSEA 30 Tablet 3 08/24/2022 Active Vitamin D (Ergocalciferol) 1.25 MG (59447 UT) Oral Capsule (Drisdol)Indications :Vitamin D deficiency TAKE 1 CAPSULE BY MOUTH [...] Active Isosorbide Dinitrate 20 MG Oral Tablet (Isordil)Indications :Essential hypertension with goal blood pressure less than [...] the morning. 90 Capsule 1 05/11/2023 Active Azithromycin 250 MG Oral Tablet (Zithromax Z-Kiet)Indications:Ac cocopah cough,COPD, group B, by GOLD 2017 classification ([facility]),Coronary artery disease involving [place] coronary artery of [place] heart without angina pectoris,COPD exacerbation ([facility]) Take two tablets by mouth on first day, then 1 tablet daily until gone 6 Tablet 0 05/15/2023 Active Amoxicillin-Pot Clavulanate 875-125 MG Oral Tablet (Augmentin)Indicatio ns:Acute cough,COPD, group B, by GOLD 2017 classification ([facility]),Coronary artery disease involving [place] coronary artery of [place] heart without angina pectoris,COPD exacerbation ([facility]) Take 1 Tablet by mouth in the morning and 1 Tablet before bedtime. 20 Tablet 0 05/31/2023 Active Simvastatin 20 MG Oral Tablet (Zocor) TAKE BY MOUTH 1 TABLET IN THE EVENING. 90 Tablet 1 06/11/2023 Active Zolpidem Tartrate 5 MG Oral Tablet (Ambien) Take 1 Tablet by mouth at bedtime as needed for Sleep. 90 Tablet 0 06/20/2023 Active HYDROcodone-Acetamin ophen 5-325 MG Oral TabletIndications:Ch ronic bilateral low back pain without sciatica Take 1 Tablet by mouth every 8 hours as needed for Pain, Mild or Pain, Severe. 90 Tablet 0 06/20/2023 Active Zolpidem Tartrate 5 MG Oral Tablet (Ambien) Take 1 Tablet by mouth at bedtime as needed for Sleep. 90 Tablet 0 03/21/2023 3 Discontinue d(Refill) HYDROcodone-Acetamin ophen 5-325 MG Oral TabletIndications:Ch ronic bilateral low back pain without sciatica Take 1 Tablet by mouth every 8 hours as needed for Pain, Mild or Pain, Severe. 90 Tablet 0 05/11/2023 3 Discontinue d(Refill) Hospital, Clinic, or Other Facility Administered Medication [...] as of this encounter (statuses as of 06/20/2023) Active Problems Problem Noted Date Exudative age-related macula r degeneration of right eye with active choroidal neovascularization 11/07/2021 LBBB (left bundle branch block) 06/29/20 21 Chronic kidney disease, stage 3b 021 Overview: Per CKD protocol COPD, group B, by GOLD 2017 classificati on 04/25/2021 Overview: Per COPD GOLD Classification History of cataract extraction 1 History of spinal surgery 04/19/2021 History of [...] dysfunction 07/26/2017 Coronary artery disease invo lving g[place] coronary artery without angina pectoris 07/26/2017 Osteoarthritis [...] as of this encounter (statuses as of 06/20/2023) Resolved Problems Problem Noted Date Resolved Date [...] as of this encounter (statuses as of 06/20/2023) Immunizations Name Administration Dates Next Due COVID-19 [...] encounter Miscellaneous Notes * Telephone Encounter - Cholo Franks MD - 06/20/2023 6:42 PM EDTSigned Prescriptions: Disp Refills Zolpidem Tartrate 5 MG Oral Tablet (Ambien)90 Tab*0 Sig: Take 1 Tablet by mouth at bedtime as needed for Sleep.Authorizing Provider: CHOLO FRANKS HYDROcodone-Acetaminophen 5-325 MG Oral Ta*90 Tab*0 Sig: Take 1 Tablet by mouth every 8 hours as needed for Pain, Mild or Pain, Severe.Authorizing Provider: CHOLO FRANKS * Telephone Encounter - Mitzi Wynn [facility] - 06/20/2023 4:21 PM EDTPending Prescriptions: Disp Refills Zolpidem Tartrate 5 MG Oral Tablet (Ambien)90 Tab*0 Sig: Take 1 Tablet by mouth at bedtime as needed for Sleep. HYDROcodone-Acetaminophen 5-325 MG Oral Ta*90 Tab*0 Sig: Take 1 Tablet by mouth every 8 hours as needed for Pain, Mild or Pain, Severe. * Telephone Encounter - Mitzi Wynn [facility] - 06/20/2023 4:17 PM EDT I have reviewed the patients controlled substance dispensing history in the Prescription Drug Monitoring Program in compliance with the [facility] regulations before prescribing a controlled substance. PDMP checked on 06/20/2023. Pending Prescriptions: Disp Refills Zolpidem Tartrate 5 MG Oral Tablet (Ambie*90 Tab*0 Sig: Take 1 Tablet by mouth at bedtime as needed for Sleep. HYDROcodone-Acetaminophen 5-325 MG Oral T*90 Tab*0 Sig: Take 1 Tablet by mouth every 8 hours as needed for Pain, Mild or Pain, Severe. Last Visit: 05/15/2023 (in office), Visit date not found (telemedicine) Next Visit: 07/23/2023 Date medication was last filled: Zolpidem 03/21/2023 Hydrood/acet 05/11/2023 Date medication is due for refill: 06/18/2023 Hydrocod/acet 06/10/2023 Pharmacy: [id number] Is this request for a controlled substance? Yes and Urine Drug Screen Not completed Toxicology results: Results for orders placed or performed during the hospital encounter of 04/30/21 TOXICOLOGY, URINE SCREEN W/ CONFIRMATION Result Value Amphetamine Negative Benzodiazepines Positive (A) Cannabinoids Negative Cocaine Metabolite Negative Hydrocodone / Hydromorphone Positive (A) Methadone Metabolite Negative Morphine / Codeine Positive (A) Oxycodone / Oxymorphone Positive (A) Narrative Cutoff Concentrations: Drug Level Amphetamines 500 ng/mL Benzodiazepines 100 ng/mL Cannabinoids 50 ng/mL Cocaine Metabolite 150 ng/mL Hydrocodone / Hydromorphone 100 ng/mL Methadone Metabolite 100 ng/mL Morphine / Codeine 300 ng/mL Oxycodone / Oxymorphone 100 ng/mL Screening results are presumptive and can only be used for medical purposes. Positive screening results are reflexed to confirmatory testing. *Note: Due to a large number of results and/or encounters for the requested time period, some results have not been displayed. A complete set of results can be found in Results Review. Please approve if appropriate. Thank you, Mitzi Wynn [facility] Clinical Pharmacist [facility] ([facility]) (formerly Telepharmacy) 06/20/23 4:18 PM [phone] documented in this encounter Plan of Treatment Upcoming Encounters Date Type Specialty Care Team Description 07/23/2023 Office Visit Family [facility] [address] [facility] [address] 08/21/2023 Office Visit Podiatry Adriana Meza DPM [address] [place] [address] 08/28/2023 Office Visit Ophthalmology Isaiah Valle DO [address] [place] [address] 09/18/2023 Office Visit Family Medicine Cholo Franks MD [address] [facility] [place] [address] Scheduled Procedures Name Priority Associated Diagnoses Date/Ti me ESOPHAGOGASTRODUODENOSCOPY ( EGD), FLEXIBLE, TRANSORAL, DIAGNOSTIC Recall Esophageal dysphagia Health Maintenance Due Date Last Done Comments Alpha-1 Antitrypsin 1953 Zoster Vaccines (2 of 2) 07/25/2013 05/30/2013, 05/18 *BISPHONATE OR OTHER ACCEPTABLE MEDICATION NEEDED FOR OSTEOPOROSIS (REFER TO SMARTSET #1146) 05/20/2019 COVID-19 Vaccine ( season) 2023 09/28/2022, 08/24/2021, 11/26/2020, Additional history exists Influenza Vaccine (FLU shot) (#1) 2023 07/04/2022, 07/02/2021, 07/02/2021, Additional history exists Albumin/Creatinine Ratio 07/21/2023 07/21/2022 CKD HGB USE SMARTSET 63644 07/21/202307/21, 07/21/2022, 05/04/2021, Additional history exists CKD PHOS USE SMARTSET 53027 07/21/2023 11/12/2021, 05/03/2021, 05/02/2021, Additional history exists Depression Screening 09/20/2023 09/20/2022 O2 ASSESSMENT COMPLETED IN PAST YEAR FOR COPD 05/15/2024 05/15/2023 DTaP,Tdap,and Td Vaccines (2 - Td or Tdap) 04/30/2031 04/30/2021, 06/02/2008, 12/16/1993, Additional history exists Pneumococcal Vaccine: 65+ Years Completed 11/03/2014, 07/02/2001 GARDASIL-HPV IMMUNIZATION SERIES Aged Out No longer [...] of this encounter Visit Diagnoses Diagnosis Chronic bilateral low back pain without sciatica documented in this encounter Advance Directives Latest [...] and were consensually agreed upon. Care Teams Kiln Car Repairer Relationship Specialty Start Date End Date Cholo Franks MD [address] [place] [address] PCP - General 07/02/01 documented as of this encounter
--- OUTSIDE RECORDS SUMMARY | 2023-08-05 10:01 | External Medical Summary | Summary of Care ---
Author Name Unknown Organization [facility] Address [address] [place] [place] [address] Phone [phone] Care Team Providers Care Patient Transition Specialist Name Role Phone Klaus Douglas MD Primary Care Provider [phone]- [phone] Reason for Visit * Reason Comments Follow Up DIL/OCT OD * Precert (Routine) - Authorized Specialty Diagnoses / Procedures Referred By Renae alcala Referred To Contact Ophthalmology Diagnoses Exudative age-related macular degeneration of right eye with active choroidal neovascularization (HCC) Procedures INJECTION OF EYE DRUG INECTION,BEVACIZUMAB, 10 MG Isaiah Valle DO [address] [place] [address] Referral ID Status Reason Start Date Expiration Date V isits Requested Visits Authorized [id number] Authorized Precert 2020 09/16/2099 99 99 Encounter Details Date Type Department Care Team Description 06/13/2023 Office Visit Ophthalmology, [facility] [address] [place] [address] Isaiah Valle DO [address] [place] [address] Exudative age-related macular degeneration of right eye [...] daily. 30 Tab 11 05/30/2021 Active Nystatin 269220 UNIT/GM External Powder (Nystop) Apply topically to [...] 08/24/2022 Active Vitamin D (Ergocalciferol) 1.25 MG (97564 UT) Oral Capsule (Drisdol)Indications: Vitamin D deficiency [...] B, by GOLD 2017 classification ([facility]),Coronary artery disease involving [place] coronary artery of [place] heart without angina pectoris,COPD exacerbation ([facility]) Take two tablets by mouth on first day, then 1 tablet daily until gone 6 Tablet 0 05/15/2023 Active Amoxicillin-Pot Clavulanate 875-125 MG Oral Tablet (Augmentin)Indication s:Acute cough,COPD, group B, by GOLD 2017 classification (HCC),Coronary artery disease involving [place] coronary artery of [place] heart without angina pectoris,COPD exacerbation (HCC) Take [...] dysfunction 07/26/2017 Coronary artery disease invo lving [place] coronary artery without angina pectoris 07/26/2017 Osteoarthritis [...] mRNA, LNP-s, No Pre serve, 2-Dose Series ([employer]) 08/24/2021,11/26/2020,11/05/2020 Covid-19, Mrna, Lnp-s, Pf, B ivalent, [...] - 06/13/2023 11:15 AM EDT [facility] [place] Nursing [...] Isaiah Valle DO Avastin 1.25mg lot # [id number] Exp. Date: 07/09/23 * Nae Barrios RN [...] Family Medicine Klaus Douglas MD [address] [place] [address] 08/21/2023 Office Visit Podiatry Adriana Meza DPM [address] [facility] [place] [address] 08/28/2023 Office Visit Ophthalmology Isaiah Valle DO [address] [place] [address] 09/18/2023 Office Visit Family Medicine Klaus Douglas MD [address] [place] [address] Scheduled Orders Name Type Priority Associated Diagnoses [...] Ratio 07/21/2023 07/21/2022 CKD HGB USE SMARTSET 03836 07/21/202307/21, 07/21/2022, 05/04/2021, Additional history exists CKD PHOS USE SMARTSET 12094 07/21/2023 11/12/2021, 05/03/2021, 05/02/2021, Additional history exists [...] and were consensually agreed upon. Care Teams Patient Transition Specialist Relationship Specialty Start Date End Date Klaus Douglas MD [facility] [address] PCP - General 10/16/01 documented as of this encounter
--- OUTSIDE RECORDS SUMMARY | 2023-08-05 10:01 | External Medical Summary | Summary of Care ---
Author Name Unknown Organization [facility] Address [address] [place] [address] Phone [phone] Care Team Providers Care Warehouse Team Leader Name Role Phone Klaus Douglas MD Primary Care Provider +1- [phone] Reason for Visit * Reason Onset Date Comments Test Results 06/21/2023 Encounter Details Date Type Department Care Team Description 06/21/2023 Telephone Cardiology, [facility] [address] [place] [address] Mark Singh, [address] [place] [address] Test Results Allergies Active Allergy Reactions Severity Noted Date Comments Atenolol 06/15/1999 stomach pain Lisinopril 06/27/2010 hyperkalemia Sulfa Antibiotics 2020 Sulfamethoxazole 10/19/2006 Tingling, itch, s.o.b. documented as of this encounter (statuses as of 06/21/2023) Medications Medication Sig Dispensed Refills Start Date [...] daily. 30 Tab 11 05/30/2021 Active Nystatin 866213 UNIT/GM External Powder (Nystop) Apply topically to [...] 08/24/2022 Active Vitamin D (Ergocalciferol) 1.25 MG (72709 UT) Oral Capsule (Drisdol)Indications: Vitamin D deficiency [...] cough,COPD, group B, by GOLD 2017 classification ([facility]),Coronary artery disease involving [place] coronary artery of [place] heart without angina pectoris,COPD exacerbation ([facility]) Take two tablets by mouth on first day, then 1 tablet daily until gone 6 Tablet 0 05/15/2023 Active Amoxicillin-Pot Clavulanate 875-125 MG Oral Tablet (Augmentin)Indication s:Acute cough,COPD, group B, by GOLD 2017 classification ([facility]),Coronary artery disease involving [place] coronary artery of [place] heart without angina pectoris,COPD exacerbation ([facility]) Take 1 Tablet by mouth in the morning and 1 Tablet before bedtime. 20 Tablet 0 05/31/2023 Active Simvastatin 20 MG Oral Tablet (Zocor) TAKE BY MOUTH 1 TABLET IN THE EVENING. 90 Tablet 1 06/11/2023 Active Zolpidem Tartrate 5 MG Oral Tablet (Ambien) Take 1 Tablet by mouth at bedtime as needed for Sleep. 90 Tablet 0 06/20/2023 Active HYDROcodone-Acetamino phen 5-325 MG Oral TabletIndications:Chr onic bilateral low back pain without sciatica Take 1 Tablet by mouth every 8 hours as needed for Pain, Mild or Pain, Severe. 90 Tablet 0 06/20/2023 Active Hospital, Clinic, or Other Facility Administered [...] as of this encounter (statuses as of 06/21/2023) Active Problems Problem Noted Date Exudative age-related [...] dysfunction 07/26/2017 Coronary artery disease invo lving [place] coronary artery without angina pectoris 07/26/2017 Osteoarthritis [...] as of this encounter (statuses as of 06/21/2023) Resolved Problems Problem Noted Date Resolved Date [...] 12/07/2009 07/03/2013 HTN, goal below 140/90 07/02/2001 Menopause 07/02/2001 06/24/2013 Hemorrhoids, external without complications 06/1702/20/2019 Mixed dyslipidemia 09/03/2000 09/01/2009 Overview: Per Lipid Taxonomy. Encounter for long-term (current) use of medicat ions 09/03/2000 06/24/2013 Overview: ICD-10 update of inactive term Tobacco use disorder 07/27/2000 07/02/2001 Respiratory symptoms 07/27/2000 06/24/2013 Overview: ICD-10 update of inactive term documented as of this encounter (statuses as of 06/21/2023) Immunizations Name Administration Dates Next Due COVID-19 [...] encounter Miscellaneous Notes * Telephone Encounter - Barbie Mackenzie CMA - 06/21/2023 10:58 AM EDT Portal message sent,. * Telephone Encounter - Barbie Mackenzie CMA - 06/21/2023 10:57 AM EDT ----- Message from Mark Singh DO sent at 06/20/2023 4:21 PM EDT ----- Cardiology nursing: Please notify patient that her carotid duplex reveals stable findings of less than 50% stenosis in both carotid arteries. Studies unchanged compared to a year ago. Continue present treatment, will repeat this study in 1 to 2 years. Mark Singh DO documented in this encounter Plan of Treatment Upcoming Encounters Date Type Specialty Care Team Description 07/23/2023 Office Visit Family Medicine Klaus Douglas MD [address] [place] [address] 08/21/2023 Office Visit Podiatry Adriana Meza DPM [address] [place] [address] 08/28/2023 Office Visit Ophthalmology Isaiah Valle DO [address] [place] [address] 09/18/2023 Office Visit Family Medicine Klaus Douglas MD [address] [place] [address] Scheduled Procedures Name Priority Associated Diagnoses Date/Ti [...] Ratio 07/21/2023 07/21/2022 CKD HGB USE SMARTSET 29594 07/21/202307/21, 07/21/2022, 05/04/2021, Additional history exists CKD PHOS USE SMARTSET 79466 07/21/2023 11/0 12/2021, 05/03/2021, 05/02/2021, Additional history exists Depression Screening [...] and were consensually agreed upon. Care Teams Warehouse Team Leader Relationship Specialty Start Date End Date Klaus Douglas MD [address] [place] [address] PCP - General 07/02/01 documented as of this encounter
--- OUTSIDE RECORDS SUMMARY | 2023-08-05 10:01 | External Medical Summary | Continuity of Care Document ---
Author Name Unknown Organization [id number] Address [address] [place] [id number] Care Team Providers Care Anti Air Warfare Operations Officer Name Role Phone Klaus Douglas Primary Care Physician [phone] [id number] - [facility]/21/23 [facility] [address] [facility] [address] [facility] [address] [place] [address] Encounter Diagnosis Lumbar facet arthropathy(Discharge Diagnosis) - 06/21/23 Discharge Disposition: Home or Self Care Attending Physician: MD Muniz Gregory G Allergies, Adverse Reactions, Alerts Substance Reaction Severity Status atenolol Active sulfa drugs Active Medications acetaminophen-HYDROcodone 325 mg-5 mg oral tablet [...] dental and other procedures as directed, Pharmacy: [id number] Start Date: 05/26/19 Status: Ordered Anoro Ellipta [...] for sleep Start Date: 06/11/23 Status: Ordered Problem List Condition Confirmation Course Effective Dates [...] Effective Dates Health Status Clinical Service Informant Lumbar facet arthropathy Discharge Diagnosis 06/21/23 Procedures Procedure Date Related Diagnosis Body Site Status B/L Cataract Sx 2008 Completed incarcerated hernia 2006 Compl eted Right LAMONT 2004 Completed Back Sx 2001 Completed Right CTR 1991 Completed Hysterectomy 1972 Completed Hemorrhoids Completed Vital Signs Most recent to oldest [Reference Range]: 1 Heart Rate 82 bpm (06/21/23 1:26 PM) Blood Pressure 140/80mmHg (06/21/23 1:26 PM) Social History Social History Type Response Smoking Status Never smoked cigaret isidra Sex Female Ortho Outpt Note * MD Flavio, Hermelindo Fuentes: PERFORM Event Display: Ortho Outpt Note Authored Date: [id number] Name:IRENA EUGENE Patient Number:[id number] :1935 Date of Service:06/21/2023 Preoperative diagnosis: Right L5-S1 facet arthropathy Postoperative diagnosis: Same Procedure: Right L5-S1 facet joint injection under fluoroscopic guidance Indications: Patient is an 87-year-old femalewith axial back pain is localizing to the right L5-S1 facet area she presents today for facet joint injection to provide her with relief. Physical examination patient is without any focal motor or sensory deficits and negative seated straight leg raises, right sided tenderness of the lumbar sacral facet area, worse with extension. Consent: Verbal consent was obtained from the patient. Prior to the procedure a timeout was done for safety to identify patient's name date of and approach. Procedure: Patient was maintained in a prone position backside was cleansed with Betadine x3 fluoroscope was used to identify the right L5-S1 facet joint . The overlying skin was anesthetized with 2.5 mL of lidocaine 1% with a 25-gauge 1/2 inch needle. A 3-1/2 inch 22-gauge spinal needle was then directed under fluoroscopic guidance into the joint and they underwent injection after negative aspiration of <0.25ml of Omnipaque 300 to confirm intraarticular uptake then injection after negative aspiration of half a milliliter of the 80 mg/mL concentration of Depo-Medrol and 1/2 mL of 0.25%bupivacaine. Injection was well- tolerated images from the procedure were saved and downloaded to PACS. Disposition: Patient will be discharged home once discards criteria have been met. Electronic Signature on File CC: Goran Pappas PA-C [address] [facility] [address] [place] [id number] Electronically Reviewed/Signed by: Hermelindo Muniz MD Author Signature Dt/Tm:06/21/2023 01:42 PM [facility] TRUDY .Outpt Proc * MATT Hinson, Merna Adams: PERFORM Event Display: .Outpt Proc Authored Date: [id number] OUTPATIENT PROCEDURE Name: IRENA EUGENE Patient Number: [id number] : 1935 Date of Service: 06/21/2023 OUTPATIENT PROCEDURE NOTE Is patient no Procedure performedRightFacet Joint Injection [id number] byDr. Hermelindo Muniz MD Resuscitation equipment checkedyes Anticoagulants stoppedN/A Patient has a driveryes xray guidance usedyesConscious sedationnoTime out completedyes consent signedyes Allergies checkedyessulfa drugs; atenolol Diabeticno PositionPronePre procedure pain level ___/10 Skin PrepBetadineSterile drapes usedyes Skin Local Anesthetic: Needle ___25__ga ___1.5___in Lidocaile __1___%___4__ml Other HR: 82 SpO2: 94% BP: 140/80 Block Needle _25_GA__3.5InchesType - Epidural/spinal needle Procedure medication used Cortical Steroids __80_mg MethylprednisoloneLocal Anesthetic ___0.25__% ___0.5__ml Bupivicaine TimeDrug/Event/RemarkBPHRSPO2 Comments 1335 - 0.25ml Omnipaque R Facet joint 1336 - Procedure complete 153/76 72 95% Status:Pain on discharge __0__/10ComplicationsNo Neurologically stableYes DispositionDischarged Home with aftercare instructions given Follow up ___6__weeks Electronic Signature on File Electronically Reviewed/Signed by: Merna Hinson Author Signature Dt/Tm:06/21/2023 01:41 PM Electronically Reviewed/Signed by: Hermelindo Muniz MD Cosigner Signature Dt/Tm: 06/21/2023 03:05 PM [facility] Patient Care team information Care Team Personnel Name: MD Stella, Klaus Jaimes Position: Referring DIRECT Member Role: Primary Care Provider Address: Address: [address] [place] [address] Care Team Related Persons Name: ESPERANZA EUGENE Address: [address] [id number] Name: RASHARD NEWMAN
--- OUTSIDE RECORDS SUMMARY | 2023-08-05 10:01 | External Medical Summary | Summary of Care ---
Author Name Unknown Organization [facility] Address [address] [facility] [place] [address] Phone [phone] Care Team Providers Care Fishing Tool Operator Name Role Phone Klaus Douglas MD Primary Care Provider +1- [phone] Reason for Visit * Reason Comments Follow Up DIL/OCT OD * Precert (Routine) - Authorized Specialty Diagnoses / Procedures Referred By Renae alcala Referred To Contact Ophthalmology Diagnoses Exudative age-related macular degeneration of right eye with active choroidal neovascularization (HCC) Procedures INJECTION OF EYE DRUG INECTION,BEVACIZUMAB, 10 MG Isaiah Valle DO [address] [place] [address] Referral ID Status Reason Start Date Expiration Date V isits Requested Visits Authorized [id number] Authorized Precert 2020 09/16/2099 99 99 Encounter Details Date Type Department Care Team Description 06/13/2023 Office Visit Ophthalmology, [facility] [address] [place] [address] Isaiah Valle DO [address] [place] [address] Exudative age-related macular degeneration of right eye [...] daily. 30 Tab 11 05/30/2021 Active Nystatin 318091 UNIT/GM External Powder (Nystop) Apply topically to [...] 08/24/2022 Active Vitamin D (Ergocalciferol) 1.25 MG (96811 UT) Oral Capsule (Drisdol)Indications: Vitamin D deficiency [...] cough,COPD, group B, by GOLD 2017 classification ([facility]),Coronary artery disease involving [place] coronary artery of [place] heart without angina pectoris,COPD exacerbation ([facility]) Take two tablets by mouth on first day, then 1 tablet daily until gone 6 Tablet 0 05/15/2023 Active Amoxicillin-Pot Clavulanate 875-125 MG Oral Tablet (Augmentin)Indication s:Acute cough,COPD, group B, by GOLD 2017 classification (HCC),Coronary artery disease involving [place] coronary artery of [place] heart without angina pectoris,COPD exacerbation (HCC) Take [...] dysfunction 07/26/2017 Coronary artery disease invo lving [place] coronary artery without angina pectoris 07/26/2017 Osteoarthritis [...] mRNA, LNP-s, No Pre serve, 2-Dose Series ([employer]) 08/24/2021,11/26/2020,11/05/2020 Covid-19, Mrna, Lnp-s, Pf, B ivalent, [...] - 06/13/2023 11:15 AM EDT [facility] [place] Nursing [...] Isaiah Valle DO Avastin 1.25mg lot # [id number] Exp. Date: 07/09/23 * Nae Barrios RN [...] Family Medicine Klaus Douglas MD [address] [place] [address] 08/21/2023 Office Visit Podiatry Adriana Meza DPM [address] [facility] [address] 08/28/2023 Office Visit Ophthalmology Isaiah Valle DO [address] [place] [address] 09/18/2023 Office Visit Family Medicine Klaus Douglas MD [address] [place] [address] Scheduled Orders Name Type Priority Associated Diagnoses [...] Ratio 07/21/2023 07/21/2022 CKD HGB USE SMARTSET 30004 07/21/202307/21, 07/21/2022, 05/04/2021, Additional history exists CKD PHOS USE SMARTSET 76092 07/21/2023 11/12/2021, 05/03/2021, 05/02/2021, Additional history exists [...] and were consensually agreed upon. Care Teams Fishing Tool Operator Relationship Specialty Start Date End Date Klaus Douglas MD [facility] [place] [address] PCP - General 10/16/01 documented as of this encounter
--- OUTSIDE RECORDS SUMMARY | 2023-08-05 10:01 | External Medical Summary | Summary of Care ---
Author Name Unknown Organization [facility] Address [address] [facility] [place] [address] Phone [phone] Care Team Providers Care Drum Stenciler Name Role Phone Klaus Douglas MD Primary Care Provider +1- [phone] Reason for Visit * Reason Comments Follow Up DIL/OCT OD * Precert (Routine) - Authorized Specialty Diagnoses / Procedures Referred By Renae alcala Referred To Contact Ophthalmology Diagnoses Exudative age-related macular degeneration of right eye with active choroidal neovascularization (HCC) Procedures INJECTION OF EYE DRUG INECTION,BEVACIZUMAB, 10 MG Kayleigh Valle DO [address] [place] [address] Referral ID Status Reason Start Date Expiration Date V isits Requested Visits Authorized [id number] Authorized Precert 2020 09/16/2099 99 99 Encounter Details Date Type Department Care Team Description 06/13/2023 Office Visit Ophthalmology, [facility] [address] [place] [address] Kayleigh Valle DO [address] [place] [address] Exudative age-related macular degeneration of right eye [...] daily. 30 Tab 11 05/30/2021 Active Nystatin 032490 UNIT/GM External Powder (Nystop) Apply topically to [...] 08/24/2022 Active Vitamin D (Ergocalciferol) 1.25 MG (10317 UT) Oral Capsule (Drisdol)Indications: Vitamin D deficiency [...] B, by GOLD 2017 classification ([facility]),Coronary artery disease involving [place] coronary artery of [place] heart without angina pectoris,COPD exacerbation ([facility]) Take two tablets by mouth on first day, then 1 tablet daily until gone 6 Tablet 0 05/15/2023 Active Amoxicillin-Pot Clavulanate 875-125 MG Oral Tablet (Augmentin)Indication s:Acute cough,COPD, group B, by GOLD 2017 classification (HCC),Coronary artery disease involving [place] coronary artery of [place] heart without angina pectoris,COPD exacerbation (HCC) Take [...] dysfunction 07/26/2017 Coronary artery disease invo lving [place] coronary artery without angina pectoris 07/26/2017 Osteoarthritis [...] - 06/13/2023 11:15 AM EDT [facility] [place] Nursing notes [...] Kayleigh Valle DO Avastin 1.25mg lot # [id number] Exp. Date: 07/09/23 * Nae Ceballos RN [...] Family Medicine Klaus Douglas MD [address] [place] [place] [address] 08/21/2023 Office Visit Podiatry Adriana Meza DPM [address] [place] [address] 08/28/2023 Office Visit Ophthalmology Kayleigh Valle DO [address] [place] [address] 09/18/2023 Office Visit Family Medicine Klaus Douglas MD [address] [facility] [place] [address] Scheduled Orders Name Type Priority Associated Diagnoses [...] Ratio 07/21/2023 07/21/2022 CKD HGB USE SMARTSET 05992 07/21/202307/21, 07/21/2022, 05/04/2021, Additional history exists CKD PHOS USE SMARTSET 29668 07/21/2023 11/12/2021, 05/03/2021, 05/02/2021, Additional history exists [...] neovascularization (HCC)- Primary documented in this encounter Administered Medications Active Administered Medications - up to 3 most recent administrations Medication Order MAR Action Action Date Dose Rate Site bevaCIZumab (Avastin) inj 1.25 mg 1.25 mg, Intravitreal, PRN Other, Starting on Sun06/13/23 at 1355, Until Simran 06/12/24 at 1354, For 365 days Given 06/13/2023 1:56 PM EDT 1.25 mg Eye R ight ROPivacaine (Naropin) inj 1.5 mg 1.5 mg, Injection, PRN Other, Starting on Sun06/13/23 at 1355, Until Simran 06/12/24 at 1354, For 365 days Given 06/13/2023 1:57 PM EDT 1.5 mg Eye R ight documented in this encounter Advance Directives Latest [...] and were consensually agreed upon. Care Teams Drum Stenciler Relationship Specialty Start Date End Date Klaus Douglas MD [address] [place] [address] PCP - General 07/02/01 documented as of this encounter
--- OUTSIDE RECORDS SUMMARY | 2023-08-05 10:01 | External Medical Summary | Summary of Care ---
Author Name Unknown Organization [facility] Address [address] [place] [address] Phone [phone] Care Team Providers Care Banquet Food Server Name Role Phone Klaus Douglas MD Primary Care Provider +1- [phone] Encounter Details Date Type Department Care Team (Late st Contact Info) Description 07/10/2023 11:40 AM EDT Immunization Ancillary [facility] [address] [place] [address] Sp, Flu Shot Clinic [address] [place] [address] Arrived Allergies Active Allergy Reactions Criticality Noted Date Comments Atenolol 06/15/1999 stomach pain Lisinopril 06/27/2010 hyperkalemia Sulfa Antibiotics 2020 Sulfamethoxazole 10/19/2006 Tingling, itch, s.o.b. documented as of this encounter (statuses as of 07/10/2023) Medications Medication Sig Dispensed Refills Start Date [...] daily. 30 Tab 11 05/30/2021 Active Nystatin 541081 UNIT/GM External Powder (Nystop) Apply topically to [...] 08/24/2022 Active Vitamin D (Ergocalciferol) 1.25 MG (55531 UT) Oral Capsule (Drisdol)Indications: Vitamin D deficiency [...] ONCE A DAY ON SUNDAY, SUNDAY, AND MARGOTH ONLY . 15 Tablet 1 03/19/2023 Active [...] cough,COPD, group B, by GOLD 2017 classification ([facility]),Coronary artery disease involving [place] coronary artery of [place] heart without angina pectoris,COPD exacerbation ([facility]) Take two tablets by mouth on first day, then 1 tablet daily until gone 6 Tablet 0 05/15/2023 Active Amoxicillin-Pot Clavulanate 875-125 MG Oral Tablet (Augmentin)Indication s:Acute cough,COPD, group B, by GOLD 2017 classification ([facility]),Coronary artery disease involving [place] coronary artery of [place] heart without angina pectoris,COPD exacerbation ([facility]) Take 1 Tablet by mouth [...] as of this encounter (statuses as of 07/10/2023) Active Problems Problem Noted Date Diagnosed Date [...] dysfunction 07/26/2017 Coronary artery disease invo lving [place] coronary artery without angina pectoris 07/26/2017 Osteoarthritis of left knee 06/07/2016 Hypertension 04/12/2016 Exudative macular degeneration 11/09/2015 Obesity, Class I, BMI 30.0-34.9 (see actual BMI) 07/03/2013 Overview: bmi= 31.86 07/03/13 Osteoporosis 02/19/2013 Stenosis of carotid artery 07/26/2012 Dyslipidemia 09/01/2009 Overview: Per Lipid Taxonomy. Vitamin D deficiency 11/21/2008 Unilateral inguinal hernia 05/30/2007 Gastroesophageal reflux disease 07/02/2001 documented as of this encounter (statuses as of 07/10/2023) Resolved Problems Problem Noted Date Diagnosed Date [...] as of this encounter (statuses as of 07/10/2023) Immunizations Name Administration Dates Next Due COVID-19 mRNA, LNP-s, No Pre serve, 2-Dose Series ([employer]) 08/24/2021,11/26/2020,11/05/2020 Covid-19, Mrna, Lnp-s, Pf, B ivalent, [...] Recorded PHQ Adult Total Score 0 09/20/2022 Sex and Gender Information Value Date Recorded [...] Team (Late st Contact Info) Description 07/23/2023 8:20 AM EST [facility] [place] [address] [facility] [id number] [facility] [address] [facility] [address] 08/21/2023 10:00 AM EST Office Visit Podiatry [facility] [address] [place] [address] Adriana Meza DPM [address] [place] [address] 08/28/2023 11:15 AM EST Office Visit Ophthalmology, [facility] [address] [place] [address] Isaiah Valle, [address] [place] [address] 09/18/2023 5:40 PM EST Office Visit [place] [address] [facility] [phone] Klaus Douglas [facility] [address] [facility] [address] Scheduled Procedures Name Priority Associated Diagnoses Date/Ti [...] exists Influenza Vaccine (FLU shot) (#1) 2023 07/10/2023, 07/04/2022, 07/02/2021, Additional history exists Albumin/Creatinine Ratio 07/21/2023 07/21/2022 CKD HGB USE SMARTSET 81788 07/21/202307/21, 07/21/2022, 05/04/2021, Additional history exists CKD PHOS USE SMARTSET 56103 07/21/2023 11/12/2021, 05/03/2021, 05/02/2021, Additional history exists [...] and were consensually agreed upon. Care Teams Banquet Food Server Relationship Specialty Start Date End Date Klaus Douglas MD [address] [place] [address] PCP - General 07/02/01 documented as of this encounter
--- OUTSIDE RECORDS SUMMARY | 2023-08-05 10:02 | External Medical Summary | Summary of Care ---
Author Name Unknown Organization [facility] Address [address] [place] [address] Phone [phone] Care Team Providers Care Technical Support Professional Name Role Phone Cholo Franks MD Primary Care Provider +1- [phone] Reason for Visit * Reason Onset Date Comments Medication Refill 05/10/2023 Encounter Details Date Type Department Care Team Description 05/10/2023 Refill [facility] [address] [place] [address] Cholo Franks MD [address] [place] [address] Chronic bilateral low back pain without sciatica Allergies Active Allergy Reactions Severity Noted Date Comments Atenolol 06/15/1999 stomach pain Lisinopril 06/27/2010 hyperkalemia Sulfa Antibiotics 2020 Sulfamethoxazole 10/19/2006 Tingling, itch, s.o.b. documented as of this encounter (statuses as of 05/11/2023) Medications Medication Sig Dispensed Refills Start Date [...] daily. 30 Tab 11 05/30/2021 Active Nystatin 978275 UNIT/GM External Powder (Nystop) Apply topically to [...] Tablet by mouth at bedtime. 0 Active Simvastatin 20 MG Oral Tablet (Zocor) Take by mouth 1 Tablet in the evening. 90 Tablet 3 06/05/2022 Active Amoxicillin 500 MG Oral Capsule (Amoxil) [...] 08/24/2022 Active Vitamin D (Ergocalciferol) 1.25 MG (80266 UT) Oral Capsule (Drisdol)Indications :Vitamin D deficiency [...] the morning. 90 Capsule 1 05/11/2023 Active HYDROcodone-Acetamin ophen 5-325 MG Oral TabletIndications:Ch ronic bilateral low back pain without sciatica Take 1 Tablet by mouth every 8 hours as needed for Pain, Mild or Pain, Severe. 90 Tablet 0 05/11/2023 Active Metoprolol Succinate ER 25 MG Oral Tablet Extended Release 24 Hour (toPROL XL) Take by mouth 0.5 Tablets in the morning. 45 Tablet 3 06/05/2022 3 Discontinue d(Refill) FLUoxetine HCl 10 MG Oral Capsule (PROzac) Take 1 Capsule by mouth in the morning. 90 Capsule 1 01/30/2023 3 Discontinue d(Refill) HYDROcodone-Acetamin ophen 5-325 MG Oral TabletIndications:Ch ronic bilateral low back pain without sciatica Take 1 Tablet by mouth every 8 hours as needed for Pain, Mild or Pain, Severe. 90 Tablet 0 03/06/2023 3 Discontinue d(Refill) Hospital, Clinic, or Other Facility Administered Medication Ordered Dose Route Frequency Start Date End Date Status albuterol (PROVENTIL HFA) inhaler 4 PuffIndications:COPD, severe (HCC),VELIZ (dyspnea on exertion) 4 Puff IN Q4H PRN 06/29/2017 Active ROPivacaine (Naropin) inj 1.5 mgIndications:Exudative age-related macular degeneration of right eye with active choroidal neovascularization (HCC) 1.5 mg IJ PRN 06/08/2022 06/08/2023 Active bevaCIZumab (Avastin) inj 1.25 mgIndications:Exudative age-related macular degeneration of right eye with active choroidal neovascularization (HCC) 1.25 mg IZ PRN 10/30/2022 10/30/2023 Active documented as of this encounter (statuses as of 05/11/2023) Active Problems Problem Noted Date Exudative age-related macula r degeneration of right eye with active choroidal neovascularization 11/07/2021 LBBB (left bundle branch block) 06/29/20 Chronic kidney disease, stage 3b 021 Overview: [...] dysfunction 07/26/2017 Coronary artery disease invo lving [place] coronary artery without angina pectoris 07/26/2017 Osteoarthritis [...] as of this encounter (statuses as of 05/11/2023) Resolved Problems Problem Noted Date Resolved Date [...] as of this encounter (statuses as of 05/11/2023) Immunizations Name Administration Dates Next Due COVID-19 mRNA, LNP-s, No Pre serve, 2-Dose Series (Pfizer) 08/24/2021,11/26/2020,11/05/2020 Covid-19, Mrna, Lnp-s, Pf, B ivalent, 30 Mcg, IM, 12 yrs and above (Pfizer) 09/28/2022 Pneumococcal Conjugate Vacc, 13 Valent (Prevnar) 11/03/2014 Season Influenza, Quad, PF, Adjuvanted, 65+ Yrs, [...] Telephone Encounter - Cholo Franks MD - 05/11/2023 4:11 PM EDTSigned Prescriptions: Disp Refills Metoprolol Succinate ER 25 MG Oral Tablet *45 Tab*1 Sig: Take 0.5 Tablets by mouth in the morning.Authorizing Provider: CHOLO FRANKS User: BALJIT SANTOS FLUoxetine HCl 10 MG Oral Capsule (PROzac) 90 Cap*1 Sig: Take 1 Caps[facility].Authorizing Provider: CHOLO FRANKS User: BALJIT SANTOS HYDROcodone-Acetaminophen 5-325 MG Oral Ta*90 Tab*0 Sig: Take 1 Tablet by mouth every 8 hours as needed for Pain, Mild or Pain, Severe.Authorizing Provider: CHOLO FRANKS * Telephone Encounter - Baljit Santos [facility] - 05/11/2023 9:39 AM EDTPending Prescriptions: Disp Refills HYDROcodone-Acetaminophen 5-325 MG Oral Ta*90 Tab*0 Sig: Take 1 Tablet by mouth every 8 hours as needed for Pain, Mild or Pain, Severe. Signed Prescriptions: Disp Refills Metoprolol Succinate ER 25 MG Oral Tablet *45 Tab*1 Sig: Take 0.5 Tablets by mouth in the morning. Authorizing Provider: Primitivo FRANKS Ordering User: BALJIT SANTOS FLUoxetine HCl 10 MG Oral Capsule (PROzac) 90 Cap*1 Sig: Take 1 Capsule by mouth in the morning. Authorizing Provider: CHOLO FRANKS Ordering User: MARCELLE, BALJIT VIKAS * Telephone Encounter - Baljit Santos [facility] - 05/11/2023 9:38 AM EDT I have reviewed the patients controlled substance dispensing history in the Prescription Drug Monitoring Program in compliance with the [facility] regulations before prescribing a controlled substance. PDMP checked on 05/11/2023. Pending Prescriptions: Disp Refills HYDROcodone-Acetaminophen 5-325 MG Oral T*90 Tab*0 Sig: Take 1 Tablet by mouth every 8 hours as needed for Pain, Mild or Pain, Severe. Signed Prescriptions: Disp Refills Metoprolol Succinate ER 25 MG Oral Tablet *45 Tab*1 Sig: Take 0.5 Tablets by mouth in the morning. Authorizing Provider: CHLOO FRANKS Ordering User: BALJIT SANTOS FLUoxetine HCl 10 MG Oral Capsule (PROzac) 90 Cap*1 Sig: Take 1 Capsule by mouth in the morning. Authorizing Provider: CHOLO FRANKS Ordering User: BALJIT SANTOS Last Visit: 09/20/2022 (in office), Visit date not found (telemedicine) Next Visit: Visit date not found Date medication was last filled: 04/01/23 Date medication is due for refill: 04/30/23 Pharmacy: [id number] Is this request for a controlled [...] in Results Review. Please approve if appropriate. Thanks, Baljit Santos Clinical Pharmacist [facility] (Formerly [facility]) [phone] 05/11/2023, 9:39 AM documented in this encounter Plan of Treatment Upcoming Encounters Date Type Specialty Care Team Description 05/15/2023 Office Visit Podiatry Adriana Meza DPM [address] [place] [address] 06/11/2023 Imaging Radiology 06/13/2023 Office Visit Ophthalmology Isaiah Valle DO [address] [place] [address] Scheduled Procedures Name Priority Associated Diagnoses Date/Ti [...] Ratio 07/21/2023 07/21/2022 CKD HGB USE SMARTSET 63421 07/21/202307/21, 07/21/2022, 05/04/2021, Additional history exists CKD PHOS USE SMARTSET 90545 07/21/2023 11/0 12/2021, 05/03/2021, 05/02/2021, Additional history exists Depression Screening, Annual for Pts 12 and Over 09/20/2023 09/20/2022 O2 ASSESSMENT COMPLETED IN PAST YEAR FOR COPD 11/06/2023 11/06/2022 DTaP,Tdap,and Td Vaccines (2 - Td or [...] and were consensually agreed upon. Care Teams Technical Support Professional Relationship Specialty Start Date End Date Cholo Franks MD [address] [place], [place] [id number] PCP - General 07/02/01 documented as of this encounter
--- OUTSIDE RECORDS SUMMARY | 2023-08-05 10:02 | External Medical Summary | Summary of Care ---
Author Name Unknown Organization [facility] Address [address] [facility] [place] [address] Phone [phone] Care Team Providers Care Java J2Ee Lead Name Role Phone Klaus Douglas MD Primary Care Provider +1- [phone] Reason for Visit * Reason Comments Follow Up DIL/OCT OD * Precert (Routine) - Authorized Specialty Diagnoses / Procedures Referred By Renae alcala Referred To Contact Ophthalmology Diagnoses Exudative age-related macular degeneration of right eye with active choroidal neovascularization (HCC) Procedures INJECTION OF EYE DRUG INECTION,BEVACIZUMAB, 10 MG Isaiah Valle DO [address] [place] [address] Referral ID Status Reason Start Date Expiration Date V isits Requested Visits Authorized [id number] Authorized Precert 2020 09/16/2099 99 99 Encounter Details Date Type Department Care Team Description 06/13/2023 Office Visit Ophthalmology, [facility] [address] [place] [address] Isaiah Valle DO [address] [place] [address] Exudative age-related macular degeneration of right eye [...] daily. 30 Tab 11 05/30/2021 Active Nystatin 860624 UNIT/GM External Powder (Nystop) Apply topically to [...] 08/24/2022 Active Vitamin D (Ergocalciferol) 1.25 MG (96620 UT) Oral Capsule (Drisdol)Indications: Vitamin D deficiency [...] cough,COPD, group B, by GOLD 2017 classification ([facility]),Coronary artery disease involving [place] coronary artery of [place] heart without angina pectoris,COPD exacerbation ([facility]) Take two tablets by mouth on first day, then 1 tablet daily until gone 6 Tablet 0 05/15/2023 Active Amoxicillin-Pot Clavulanate 875-125 MG Oral Tablet (Augmentin)Indication s:Acute cough,COPD, group B, by GOLD 2017 classification (HCC),Coronary artery disease involving [place] coronary artery of [place] heart without angina pectoris,COPD exacerbation (HCC) Take [...] dysfunction 07/26/2017 Coronary artery disease invo lving [place] coronary artery without angina pectoris 07/26/2017 Osteoarthritis [...] mRNA, LNP-s, No Pre serve, 2-Dose Series ([employer]) 08/24/2021,11/26/2020,11/05/2020 Covid-19, Mrna, Lnp-s, Pf, B ivalent, [...] - 06/13/2023 11:15 AM EDT [facility] [place] Nursing notes [...] and [employer] grid qday -had low vision shanwa w/ Dr. Chelsey Flores 2. Pseudophakia OU [...] Isaiah Valle DO Avastin 1.25mg lot # [id number] Exp. Date: 07/09/23 * Nae Barrios RN [...] Family Medicine Klaus Douglas MD [address] [place] [address] 08/21/2023 Office Visit Podiatry Adriana Meza DPM [address] [facility] [place] [address] 08/28/2023 Office Visit Ophthalmology Isaiah Valle DO [address] [place] [address] 09/18/2023 Office Visit Family Medicine Klaus Douglas MD [address] [place] [address] Scheduled Orders Name Type Priority Associated Diagnoses [...] Ratio 07/21/2023 07/21/2022 CKD HGB USE SMARTSET 68824 07/21/202307/21, 07/21/2022, 05/04/2021, Additional history exists CKD PHOS USE SMARTSET 31832 07/21/2023 11/12/2021, 05/03/2021, 05/02/2021, Additional history exists [...] and were consensually agreed upon. Care Teams Java J2Ee Lead Relationship Specialty Start Date End Date Klaus Douglas MD [facility] [place] [address] PCP - General 10/16/01 documented as of this encounter
--- OUTSIDE RECORDS SUMMARY | 2023-08-05 10:02 | External Medical Summary | Summary of Care ---
Author Name Unknown Organization [facility] Address [address] [place] [address] Phone [phone] Care Team Providers Care Fitter Hand Name Role Phone Klaus Douglsa MD Primary Care Provider +1- [phone] Reason for Visit * Reason Comments Acute Pt states [place], she states that she has earache in both ears Encounter Details Date Type Department Care Team Description 05/15/2023 Office Visit [facility] [address] [place] [address] Jennyfer Hensley MD [address] [place] [address] Acute cough*; COPD, group B, by GOLD 2017 classification ([facility]); Coronary artery disease involving douglas coronary artery of douglas heart without angina pectoris; COPD exacerbation ([facility]) Allergies Active Allergy Reactions Severity Noted Date Comments Atenolol 06/15/1999 stomach pain Lisinopril 06/27/2010 hyperkalemia Sulfa Antibiotics 2020 Sulfamethoxazole 10/19/2006 Tingling, itch, s.o.b. documented as of this encounter (statuses as of 05/15/2023) Medications Medication Sig Dispensed Refills Start Date [...] daily. 30 Tab 11 05/30/2021 Active Nystatin 745903 UNIT/GM External Powder (Nystop) Apply topically to [...] 08/24/2022 Active Vitamin D (Ergocalciferol) 1.25 MG (02545 UT) Oral Capsule (Drisdol)Indications: Vitamin D deficiency [...] Pain, Severe. 90 Tablet 0 05/11/2023 Active Amoxicillin-Pot Clavulanate 875-125 MG Oral Tablet (Augmentin)Indication s:Acute cough,COPD, group B, by GOLD 2017 classification ([facility]),Coronary artery disease involving douglas coronary artery of douglas heart without angina pectoris,COPD exacerbation ([facility]) Take 1 Tablet by mouth in the morning and 1 Tablet before bedtime. Do all this for 10 days. 20 Tablet 0 05/15/2023 05/25/2023 Active Azithromycin 250 MG Oral Tablet (Zithromax Z-Kiet)Indications:Acu te cough,COPD, group B, by GOLD 2017 classification ([facility]),Coronary artery disease involving douglas coronary artery of douglas heart without angina pectoris,COPD exacerbation ([facility]) Take two tablets by mouth on first day, then 1 tablet daily until gone 6 Tablet 0 05/15/2023 Active Hospital, Clinic, or Other Facility Administered [...] as of this encounter (statuses as of 05/15/2023) Active Problems Problem Noted Date Exudative age-related [...] dysfunction 07/26/2017 Coronary artery disease invo lving douglas coronary artery without angina pectoris 07/26/2017 Osteoarthritis [...] as of this encounter (statuses as of 05/15/2023) Resolved Problems Problem Noted Date Resolved Date [...] as of this encounter (statuses as of 05/15/2023) Immunizations Name Administration Dates Next Due COVID-19 mRNA, LNP-s, No Pre serve, 2-Dose Series (CellControl) 08/24/2021,11/26/2020,11/05/2020 Covid-19, Mrna, Lnp-s, Pf, B ivalent, 30 Mcg, IM, 12 yrs and above (CellControl) 09/28/2022 Pneumococcal Conjugate Vacc, 13 Valent (Prevnar) [...] 02/21/2015 Smokeless Tobacco: Never Tobacco Cessation:Counseling Given: Not Answered Alcohol Use Standard Drinks/Week Comments No 0 [...] Sign Reading Time Taken Comments Blood Pressure 142/72 05/15/2023 2:42 PM EDT Pulse 64 05/15/2023 2:42 PM EDT Temperature 36.5 C (97.7 F) 05/15/2023 2:42 PM ED T Respiratory Rate 16 05/15/2023 2:42 PM EDT Oxygen Saturation 93% 05/15/2023 2:42 PM EDT Inhaled Oxygen Concentration - - Weight 74.6 kg (164 lb 8 oz) 05/15/2023 2:42 PM EDT Height 154.9 cm (5' 1") 05/15/2023 2:42 PM EDT Body Mass Index 31.08 05/15/2023 2:42 PM EDT documented in this encounter Functional Status Functional [...] as of this encounter Progress Notes * Jennyfer Hensley MD - 05/15/2023 2:49 PM EDT ASSESSMENT / PLAN: Makenna Harris is a 87 year old female with PMHx severe COPD / ascvd / HTN / - A/P: Cough Copd exac This is day 10 of illness and not improving - reviewed supportive care like steroid containing nasal sprays vs saline spray, antihistamine, and pushing fluids. Discussed risks and benefits of proceeding with combination therapy augmentin + macrolide antibiotic at this time, given chronic comorbidities (ascvd and copd). Patient elects to proceed. Script sentand instructed on use. They have requested a text with covid result . Acute cough (Primary) - SARS-COV-2 (COVID-19), NAAT - Amoxicillin-Pot Clavulanate 875-125 MG Oral Tablet (Augmentin); Take 1 Tablet by mouth in the morning and 1 Tablet before bedtime. Do all this for 10 days. - Azithromycin 250 MG Oral Tablet (Zithromax Z-Kiet); Take two tablets by mouth on first day, then 1tablet daily until gone COPD, group B, by GOLD 2017 classification ([facility]) - SARS-COV-2 (COVID-19), NAAT - Amoxicillin-Pot Clavulanate 875-125 MG Oral Tablet (Augmentin); Take 1 Tablet by mouth in the morning and 1 Tablet before bedtime. Do all this for 10 days. - Azithromycin 250 MG Oral Tablet (Zithromax Z-Kiet); Take two tablets by mouth on first day, then 1tablet daily until gone Coronary artery disease involving douglas coronary artery of douglas heart without angina pectoris - SARS-COV-2 (COVID-19), NAAT - Amoxicillin-Pot Clavulanate 875-125 MG Oral Tablet (Augmentin); Take 1 Tablet by mouth in the morning and 1 Tablet before bedtime. Do all this for 10 days. - Azithromycin 250 MG Oral Tablet (Zithromax Z-Kiet); Take two tablets by mouth on first day, then 1tablet daily until gone COPD exacerbation ([facility]) - SARS-COV-2 (COVID-19), NAAT - Amoxicillin-Pot Clavulanate 875-125 MG Oral Tablet (Augmentin); Take 1 Tablet by mouth in the morning and 1 Tablet before bedtime. Do all this for 10 days. - Azithromycin 250 MG Oral Tablet (Zithromax Z-Kiet); Take two tablets by mouth on first day, then 1tablet daily until gone If needed, prefers contact by: Ok to leave message on phone: SUBJECTIVE: Nursing Notes: Laura Harrell, [facility] 05/15/23 1444 Signed Makenna Harris is a 87 year old female who presents today for Chief Complaint Patient presents with Acute Pt states she has a [place], she states that she has earache in both ears HPI: Makenna Harris is a 87 year old female. Here for recheck. This is day 10 of illness - endorses cough . Has tried cough syrup Sick contacts? no Missed days of work / needs doctor's note? no Patient Active Problem List Diagnosis Code Gastroesophageal reflux disease K21.9 Unilateral inguinal hernia K40.90 Vitamin D deficiency E55.9 Dyslipidemia E78.5 Stenosis of carotid artery I65.29 Osteoporosis M81.0 Obesity, Class I, BMI 30.0-34.9 (see actual BMI) E66.9 Exudative macular degeneration ([facility]) H35.3290 Hypertension I10 Osteoarthritis of left knee M17.12 Diastolic dysfunction I51.89 Coronary artery disease involving douglas coronary artery without angina pectoris I25.10 Bilateral carotid artery stenosis I65.23 MARILEE (generalized anxiety disorder) F41.1 Hyperparathyroidism, 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 Mild emphysema ([facility]) J43.9 Severe aortic stenosis I35.0 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 Numbness and tingling R20.0, R20.2 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 History of total hip replacement Z96.649 History of cataract extraction Z98.49 History of spinal surgery Z98.890 History of hysterectomy Z90.710 History of cholecystectomy Z90.49 Chronic kidney disease, stage 3b ([facility]) N18.32 COPD, group B, by GOLD 2017 classification ([facility]) J44.9 LBBB (left bundle branch block) I44.7 Exudative age-related macular degeneration of right eye with active choroidal neovascularization ([facility]) H35.3211 Current Outpatient Medications Medication Sig Dispense Refill [...] by mouth daily. 30 Tab 011 Nystatin 237776 UNIT/GM External Powder (Nystop) Apply topically to affected area 3 times a day. Apply to affected area of right lower abdomen for up to 4 weeks. 45 g 0 Gcelpgnynam-Divxudfrv-Cvmpyi 100-62.5-25 MCG/INH Aerosol Powder Breath Activated (TRELEGY ellipta) Inhale 1 Puff by mouth in the morning. Meclizine HCl 25 MG Oral Tablet (Antivert) Take 1 Tablet by mouth 3 times a day as needed. Mirtazapine 15 MG Oral Tablet (Remeron) Take 1 Tablet by mouth at bedtime. Simvastatin 20 MG Oral Tablet (Zocor) Take by mouth 1 Tablet in the evening. 90 Tablet 3 Amoxicillin 500 MG Oral Capsule (Amoxil) 4 caps 1 hour prior to dental exam 12 Capsule 3 amLODIPine Besylate 10 MG Oral Tablet (Norvasc) Take by mouth 0.5 Tablets in the morning. 45 Tablet3 Ondansetron 4 MG Oral Tablet Disintegrating (Zofran) TAKE 1-2 TABLETS BY MOUTH EVERY 8 HOURS NEEDED FOR NAUSEA 30 Tablet 3 Vitamin D (Ergocalciferol) 1.25 MG (61501 UT) Oral Capsule (Drisdol) TAKE 1 CAPSULE [...] AND SUNDAY ONLY . 15 Tablet 1 Zolpidem Tartrate 5 MG Oral Tablet (Ambien) Take 1 Tablet by mouth at bedtime as needed for Sleep. 90 Tablet 0 Isosorbide Dinitrate 20 MG Oral Tablet (Isordil) [...] mouth in the morning. 90 Capsule 1 HYDROcodone-Acetaminophen 5-325 MG Oral Tablet Take 1 Tablet by mouth every 8 hours as needed for Pain, Mild or Pain, Severe. 90 Tablet 0 Amoxicillin-Pot Clavulanate 875-125 MG Oral Tablet (Augmentin) Take 1 Tablet by mouth in the morning and 1 Tablet before bedtime. Do all this for 10 days. 20 Tablet 0 Azithromycin 250 MG Oral Tablet (Zithromax Z-Kiet) Take two tablets by mouth on first day, then 1 tablet daily until gone 6 Tablet 0 Current Facility-Administered Medications Medication Dose Route Frequency Provider Last Rate Last Admin albuterol (PROVENTIL HFA) inhaler 4 Puff 4 Puff Inhalation Q4H PRN Mark Singh, DO 4 Puff at 07/24/17 1137 ROPivacaine (Naropin) inj 1.5 mg 1.5 mg Injection PRN Isaiah Barbosa Cessna, DO 1.5 mg at 04/02/23 1014 bevaCIZumab (Avastin) inj 1.25 mg 1.25 mg Intravitreal PRN Christopher T Cessna, DO 1.25 mg at 04/02/23 1015 OBJECTIVE: BP 142/72 (BP Site: Right Arm, BP Position: Sitting, BP Cuff Size: Regular) | Pulse 64 | Temp 36.5 C (97.7 F) (Temporal Artery) | Resp 16 | Ht 1.549 m (5' 1") | Wt 74.6 kg (164 lb 8 oz) | SpO2 93% | BMI 31.08 kg/m | BSA 1.79 m Vitals reviewed and is normotensive / afebrile / and not tachycardic General: No acute distress. Neuro: Alert Pleasant & interactive. Respiratory: Good inspiratory effort, no labored breathing. Wheezing and rhonchi on right mid/lowerbase. Clear to ausc on left. CV: RRR no M R G HEENT: Conjunctivae appear clear. No swelling noted face or lips. TM s wnl b/l. Skin: No rash visible on exposed skin areas, normal coloration & appears dry. Psych: Normal affect. Fluent speech. Jennyfer Hensley MD [address] [address] There are no Patient Instructions on file for this visit. documented in this encounter Nursing Notes * DAPHNE Ovalle - 05/15/2023 2:41 PM EDT Makenna Harris is a 87 year old female who presents today for Chief Complaint Patient presents with Acute Pt states she has a [place], she states that she has earache in both ears documented in this encounter Plan of Treatment Upcoming Encounters Date Type Specialty Care Team Description 06/11/2023 Imaging Radiology 06/13/2023 Office Visit Ophthalmology Isaiah Valle, [address] [place] [address] 07/23/2023 Office Visit Family Medicine Klaus Douglas MD [address] [place] [address] 08/21/2023 Office Visit Podiatry Adriana Meza DPM [address] [place] [address] Pending Results Name Type Priority Associated Diagnoses Date /Time SARS-COV-2 (COVID-19), NAAT Lab Routine Acute cough COPD, group B, by GOLD 2017 classification ([facility]) Coronary artery disease involving douglas coronary artery of douglas heart without angina pectoris COPD exacerbation (HCC) 05/15/2023 3:09 PM EDT Scheduled Procedures Name Priority Associated Diagnoses Date/Ti wv ESOPHAGOGASTRODUODENOSCOPY ( EGD), FLEXIBLE, TRANSORAL, DIAGNOSTIC Recall Esophageal dysphagia Health Maintenance Due Date Last Done Comments Alpha-1 Antitrypsin 1953 Zoster Vaccines (2 of 2) 07/25/2013 05/30/2013, 05/18 *BISPHONATE OR OTHER ACCEPTABLE MEDICATION NEEDED FOR OSTEOPOROSIS (REFER TO SMARTSET #1146) 05/20/2019 Influenza Vaccine (FLU shot) (#1) 2023 07/04/2022, 07/02/2021, 07/02/2021, Additional history exists Albumin/Creatinine Ratio 07/21/2023 07/21/2022 CKD HGB USE SMARTSET 55078 07/21/202307/21, 07/21/2022, 05/04/2021, Additional history exists CKD PHOS USE SMARTSET 76676 07/21/2023 11/0 12/2021, 05/03/2021, 05/02/2021, Additional history [...] as of this encounter Visit Diagnoses Diagnosis Acute cough- Primary COPD, group B, by GOLD 2017 classification (HCC) Coronary artery disease involving douglas coronary artery of douglas heart without angina pectoris COPD exacerbation (HCC) Obstructive chronic bronchitis with exacerbation documented in this encounter Advance Directives Latest [...] and were consensually agreed upon. Care Teams Fitter Hand Relationship Specialty Start Date End Date Klaus Douglas MD [address] [place] [address] PCP - General 07/02/01 documented as of this encounter
--- OUTSIDE RECORDS SUMMARY | 2023-08-05 10:02 | External Medical Summary | Summary of Care ---
Author Name Unknown Organization [facility] Address [address] [place] [address] Phone [phone] Care Team Providers Care Service Desk Team Lead Name Role Phone Cholo Franks MD Primary Care Provider +1- [phone] Reason for Visit * Reason Comments eRx-Medication Refill Encounter Details Date Type Department Care Team Description 06/10/2023 Refill [facility] [address] [place] [address] Cholo Franks MD [address] [place] [address] Allergies Active Allergy Reactions Severity Noted Date Comments Atenolol 06/15/1999 stomach pain Lisinopril 06/27/2010 hyperkalemia Sulfa Antibiotics 2020 Sulfamethoxazole 10/19/2006 Tingling, itch, s.o.b. documented as of this encounter (statuses as of 06/11/2023) Medications Medication Sig Dispensed Refills Start Date [...] daily. 30 Tab 11 05/30/2021 Active Nystatin 576322 UNIT/GM External Powder (Nystop) Apply topically to [...] 08/24/2022 Active Vitamin D (Ergocalciferol) 1.25 MG (68220 UT) Oral Capsule (Drisdol)Indication s:Vitamin D deficiency [...] the morning. 90 Capsule 1 05/11/2023 Active HYDROcodone-Acetami nophen 5-325 MG Oral TabletIndications:C hronic bilateral low back pain without sciatica Take 1 Tablet by mouth every 8 hours as needed for Pain, Mild or Pain, Severe. 90 Tablet 0 05/11/2023 Active Azithromycin 250 MG Oral Tablet (Zithromax Z-Kiet)Indications:A cute cough,COPD, group B, by GOLD 2017 classification ([facility]),Coronary artery disease involving blackfeet coronary artery of blackfeet heart without angina pectoris,COPD exacerbation ([facility]) Take two tablets by mouth on first day, then 1 tablet daily until gone 6 Tablet 0 05/15/2023 Active Amoxicillin-Pot Clavulanate 875-125 MG Oral Tablet (Augmentin)Indicati ons:Acute cough,COPD, group B, by GOLD 2017 classification ([facility]),Coronary artery disease involving blackfeet coronary artery of blackfeet heart without angina pectoris,COPD exacerbation ([facility]) Take 1 Tablet by mouth in the morning and 1 Tablet before bedtime. 20 Tablet 0 05/31/2023 Active Simvastatin 20 MG Oral Tablet (Zocor) TAKE BY MOUTH 1 TABLET IN THE EVENING. 90 Tablet 1 06/11/2023 Active Simvastatin 20 MG Oral Tablet (Zocor) Take by mouth 1 Tablet in the evening. 90 Tablet 3 06/05/2022 06/11/20 23 Discontinued Hospital, Clinic, or Other Facility [...] as of this encounter (statuses as of 06/11/2023) Active Problems Problem Noted Date Exudative age-related [...] dysfunction 07/26/2017 Coronary artery disease invo lving blackfeet coronary artery without angina pectoris 07/26/2017 Osteoarthritis [...] as of this encounter (statuses as of 06/11/2023) Resolved Problems Problem Noted Date Resolved Date [...] as of this encounter (statuses as of 06/11/2023) Immunizations Name Administration Dates Next Due COVID-19 [...] encounter Miscellaneous Notes * Telephone Encounter - Jose Enrique Rizvi [facility] - 06/11/2023 11:52 AM EDTSigned Prescriptions: Disp Refills Simvastatin 20 MG Oral Tablet (Zocor) 90 Tab*1 Sig: TAKE BY MOUTH 1 TABLET IN THE EVENING.Authorizing Provider: CHOLO FRANKS User: JOSE ENRIQUE RIZVI-- Electronically signed by Jose Enrique Rizvi [facility] at 06/11/2023 11:52 AM EDT documented in this encounter Plan of Treatment Upcoming Encounters Date Type Specialty Care Team Description 06/13/2023 Office Visit Ophthalmology Isaiah Valle DO [address] [place] [address] 07/23/2023 Office Visit Family Medicine Cholo Franks MD [facility] [place] [address] 08/21/2023 Office Visit Podiatry Adriana Meza DPM [address] [place] [address] 09/18/2023 Office Visit Family Medicine Cholo Franks MD [address] [place] [address] Scheduled Procedures Name Priority Associated Diagnoses [...] Ratio 07/21/2023 07/21/2022 CKD HGB USE SMARTSET 99617 07/21/202307/21, 07/21/2022, 05/04/2021, Additional history exists CKD PHOS USE SMARTSET 51819 07/21/2023 11/12/2021, 05/03/2021, 05/02/2021, Additional history exists [...] and were consensually agreed upon. Care Teams Service Desk Team Lead Relationship Specialty Start Date End Date Cholo Franks MD [address] [place] [address] PCP - General 07/02/01 documented as of this encounter
--- OUTSIDE RECORDS SUMMARY | 2023-08-05 10:02 | External Medical Summary | Summary of Care ---
Author Name Unknown Organization [facility] Address [address] [place] [facility] [place] [place] [address] Phone [phone] Care Team Providers Care Deckhand Fishing Vessel Name Role Phone Klaus Douglas MD Primary Care Provider +1- [phone] Reason for Visit * Reason Comments Follow Up DIL/OCT OD * Precert (Routine) - Authorized Specialty Diagnoses / Procedures Referred By Renae alcala Referred To Contact Ophthalmology Diagnoses Exudative age-related macular degeneration of right eye with active choroidal neovascularization (HCC) Procedures INJECTION OF EYE DRUG INECTION,BEVACIZUMAB, 10 MG Isaiah Valle DO [address] [place] [address] Referral ID Status Reason Start Date Expiration Date V isits Requested Visits Authorized [id number] Authorized Precert 2020 09/16/2099 99 99 Encounter Details Date Type Department Care Team Description 06/13/2023 Office Visit Ophthalmology, [facility] [address] [place] [address] Isaiah Valle DO [address] [place] [address] Exudative age-related macular degeneration of right eye [...] daily. 30 Tab 11 05/30/2021 Active Nystatin 852895 UNIT/GM External Powder (Nystop) Apply topically to [...] 08/24/2022 Active Vitamin D (Ergocalciferol) 1.25 MG (36864 UT) Oral Capsule (Drisdol)Indications: Vitamin D deficiency [...] [facility]),Coronary artery disease involving [place] coronary artery of k[place]isp[place] heart without angina pectoris,COPD exacerbation ([facility]) Take two tablets by mouth on first day, then 1 tablet daily until gone 6 Tablet 0 05/15/2023 Active Amoxicillin-Pot Clavulanate 875-125 MG Oral Tablet (Augmentin)Indication s:Acute cough,COPD, group B, by GOLD 2017 classification (HCC),Coronary artery disease involving [place]isp[place] coronary artery of [place] heart without angina pectoris,COPD exacerbation (HCC) Take [...] dysfunction 07/26/2017 Coronary artery disease invo lving [place]isp[place] coronary artery without angina pectoris 07/26/2017 Osteoarthritis [...] mRNA, LNP-s, No Pre serve, 2-Dose Series ([employer]) 08/24/2021,11/26/2020,11/05/2020 Covid-19, Mrna, Lnp-s, Pf, B ivalent, [...] - 06/13/2023 11:15 AM EDT [facility] [place] Nursing notes reviewed. [...] Isaiah Valle DO Avastin 1.25mg lot # [id number] Exp. Date: 07/09/23 * Nae Barrios RN [...] Family Medicine Klaus Douglas MD [address] [facility] [place] [id number] 08/21/2023 Office Visit Podiatry Adriana Meza DPM [address] [place] [address] 09/18/2023 Office Visit Family Medicine Klaus Douglas MD [address] [place] [facility] [place] [address] Scheduled Orders Name Type Priority Associated Diagnoses [...] Ratio 07/21/2023 07/21/2022 CKD HGB USE SMARTSET 26474 07/21/202307/212, 07/21/2022, 05/04/2021, Additional history exists CKD PHOS USE SMARTSET 83870 07/21/2023 11/0 12/2021, 05/03/2021, 05/02/2021, Additional history [...] and were consensually agreed upon. Care Teams Deckhand Fishing Vessel Relationship Specialty Start Date End Date Klaus Douglas MD [facility] [place] [address] PCP - General 07/02/01 documented as of this encounter
--- OUTSIDE RECORDS SUMMARY | 2023-08-05 10:02 | External Medical Summary | Summary of Care ---
Author Name Unknown Organization [facility] Address [address] [place] [address] Phone [phone] Care Team Providers Care Glass Belt Sander Name Role Phone Klaus Douglas MD Primary Care Provider +1- [phone] Reason for Visit * Reason Comments Follow Up DIL/OCT OD * Precert (Routine) - Authorized Specialty Diagnoses / Procedures Referred By Renae alcala Referred To Contact Ophthalmology Diagnoses Exudative age-related macular degeneration of right eye with active choroidal neovascularization (HCC) Procedures INJECTION OF EYE DRUG INECTION,BEVACIZUMAB, 10 MG Isaiah Valle DO [address] [place] [address] Referral ID Status Reason Start Date Expiration Date V isits Requested Visits Authorized [id number] Authorized Precert 2020 09/16/2099 99 99 Encounter Details Date Type Department Care Team Description 06/13/2023 Office Visit Ophthalmology, [facility] [address] [place] [address] Isaiah Valle DO [address] [place] [address] Exudative age-related macular degeneration of right eye [...] daily. 30 Tab 11 05/30/2021 Active Nystatin 064745 UNIT/GM External Powder (Nystop) Apply topically to [...] 08/24/2022 Active Vitamin D (Ergocalciferol) 1.25 MG (63174 UT) Oral Capsule (Drisdol)Indications: Vitamin D deficiency [...] group B, by GOLD 2017 classification ([facility]),Coronary artery disease involving [place] coronary artery of [place] heart without angina pectoris,COPD exacerbation ([facility]) Take two tablets by mouth on first day, then 1 tablet daily until gone 6 Tablet 0 05/15/2023 Active Amoxicillin-Pot Clavulanate 875-125 MG Oral Tablet (Augmentin)Indication s:Acute cough,COPD, group B, by GOLD 2017 classification (HCC),Coronary artery disease involving [place] coronary artery of [place] heart without angina pectoris,COPD exacerbation (HCC) Take [...] dysfunction 07/26/2017 Coronary artery disease invo lving [place] coronary artery without angina pectoris 07/26/2017 [...] mRNA, LNP-s, No Pre serve, 2-Dose Series ([employer]) 08/24/2021,11/26/2020,11/05/2020 Covid-19, Mrna, Lnp-s, Pf, B ivalent, [...] - 06/13/2023 11:15 AM EDT [facility] [place] Nursing [...] Isaiah Valle DO Avastin 1.25mg lot # [id number] Exp. Date: 07/09/23 * Nae Barrios RN [...] Family Medicine Klaus Douglas MD [address] [facility] [place] [id number] 08/21/2023 Office Visit Podiatry Adriana Meza DPM [address] [place] [address] 09/18/2023 Office Visit Family Medicine Klaus Douglas MD [address] [place] [facility] [place] [address] Scheduled Orders Name Type Priority Associated Diagnoses [...] Ratio 07/21/2023 07/21/2022 CKD HGB USE SMARTSET 56300 07/21/202307/212, 07/21/2022, 05/04/2021, Additional history exists CKD PHOS USE SMARTSET 46727 07/21/2023 11/0 12/2021, 05/03/2021, 05/02/2021, Additional history [...] and were consensually agreed upon. Care Teams Glass Belt Sander Relationship Specialty Start Date End Date Klaus Douglas MD [place] [address] PCP - General 07/02/01 documented as of this encounter
--- OUTSIDE RECORDS SUMMARY | 2023-08-05 10:02 | External Medical Summary | Summary of Care ---
Author Name Unknown Organization [facility] Address [address] [facility] [address] Phone [phone] Care Team Providers Care Rn Intake Name Role Phone Klaus Douglas MD Primary Care Provider +1- [phone] Reason for Visit * Reason Comments Follow Up Nail, callus care Encounter Details Date Type Department Care Team Description 05/15/2023 Office Visit Podiatry [facility] [address] [place] [address] Adriana Meza DPM [address] [facility] [place] [address] Onychomycosis*; Callus; Stage 3 chronic kidney disease, unspecified whether stage 3a or 3b CKD (HCC); Pain in toes of both feet Allergies Active Allergy Reactions Severity Noted Date [...] daily. 30 Tab 11 05/30/2021 Active Nystatin 313388 UNIT/GM External Powder (Nystop) Apply topically to [...] 08/24/2022 Active Vitamin D (Ergocalciferol) 1.25 MG (37117 UT) Oral Capsule (Drisdol)Indications: Vitamin D deficiency [...] Pain, Severe. 90 Tablet 0 05/11/2023 Active Hospital, Clinic, or Other Facility Administered [...] dysfunction 07/26/2017 Coronary artery disease invo lving [place] coronary artery without angina pectoris 07/26/2017 Osteoarthritis [...] mRNA, LNP-s, No Pre serve, 2-Dose Series ([employer]) 08/24/2021,11/26/2020,11/05/2020 Covid-19, Mrna, Lnp-s, Pf, B ivalent, [...] as of this encounter Progress Notes * Adriana Meza, DPM - 05/15/2023 10:12 AM EDT Podiatry Established Patient Note [facility] Name: Makenna Harris : 1935 Date: 05/15/2023 CHIEF COMPLAINT: Nail Care HISTORY OF PRESENT ILLNESS: This patient is a 87 year old female who presents today for nail care. She states she has chronic back issues and has rods in her back. She currently wears glasses. She currently takes ASA. She has pain to her calluses on both feet. She denies any other complaints at todays visit. She denies any recent changes in her medical history. 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 LAST PFT -01/05/10 Dyslipidemia, goal LDL below 100 07/14/2015 Dyslipidemia, goal to be determined Esophageal reflux 07/02/2001 External hemorrhoids with other complication Exudative macular degeneration ([facility]) 11/09/2015 Generalized osteoarthritis right knee HEMORRHOIDS, EXTERNAL W/O COMPLICATIONS 07/02/2001 HTN, goal below 140/90 07/02/2001 HTN, goal to be determined Kidney disease, chronic, stage III (GFR 30-59 ml/min) ([facility]) 11/10/2013 Per CKD protocol #1 Obesity, Class [...] by Juan David Gates MD at ENDOSCOPY [facility] CORONARY ANGIOGRAPHY W/LEFT HEART CATH Right 01/27/2019 CORONARY ANGIOGRAPHY W/LEFT HEART CATH performed by Jackie Pastrana MD at [facility] CORONARY ANGIOGRAPHY W/RIGHT+LEFT CATH Right 07/10/2017 CORONARY ANGIOGRAPHY W/RIGHT+LEFT CATH performed by Noel Bearden MD at [facility] EGD, FLEXIBLE, DIAGNOSTIC N/A 10/05/2022 [facility], EGD, Tortuous esophagus, non-bleeding gastric ulcer / no specimens collected / repeat in 8 weeks. EGD, FLEXIBLE, DIAGNOSTIC N/A 11/22/2022 [facility]< EGD, antral gastritis, z-line regular 38 cm [...] 04/02/2023 # 18 Avastin OD, Dr. Valle LAPAROSCOPY; CHOLECYSTECTOMY 03/16/2014 [facility] 03/16/14 MISCELLANEOUS ORDER ([facility] ONLY) Left 08/23/2015 [...] by Noel Bearden MD at [facility] REPLACE AORTIC VALVE, PERCUTANEOUS FEMORAL 05/15/2019 REPLACE AORTIC VALVE, PERCUTANEOUS FEMORAL performed by Addy Pireto MD at [facility] STRESS ECHO (DOBUTAMINE) 10/2004 No stress-induced changes TOTAL ABD HYSTERECTOMY W/WO REMOVAL OF TUBE(S) 03/1973 not sure if ovaries remain TOTAL HIP REPLACEMENT & PROSTHESIS 11/21/2004 Right Hip Replacement Family History Problem Relation Age of Onset Arthritis Mother Hypertension Mother Cancer Father with CA doesn't know was full of it. Diabetes Brother No Known Problems Son Other (leg amputation s/p surgical infection) Daughter Social History Socioeconomic History Marital status: Spouse name: Salvador Number of children: 2 Years of education: Not on file Highest education level: Not on file Occupational History Occupation: retired-date unknown Social Needs Financial resource strain: Not on file Food insecurity: Worry: Not on file Inability: Not on file Transportation needs: Medical: Not on file Non-medical: Not on file Tobacco Use Smoking status: Former Smoker Packs/day: 2.00 Years: 60.00 Pack years: 120.00 Types: Cigarettes Last attempt to quit: 02/21/2015 Years since quittin.3 Smokeless tobacco: Never Used Substance and Sexual Activity Alcohol use: No Drug use: No Sexual activity: Yes Lifestyle Physical activity: Days per week: Not on file Minutes per session: Not on file Stress: Not on file Relationships Social connections: Talks on phone: Not on file Gets together: Not on file Attends jehovah's witness service: Not on file Active member of club or organization: Not on file Attends meetings of clubs or organizations: Not on file Relationship status: Not on file Intimate partner violence: Fear of current or ex partner: Not on file Emotionally abused: Not on file Physically abused: Not on file Forced sexual activity: Not on file Other Topics Concern Not on file Social History Narrative Lives with spouse. Current Outpatient Medications Medication Sig Dispense Refill [...] by mouth daily. 30 Tab 011 Nystatin 112462 UNIT/GM External Powder (Nystop) Apply topically to affected area 3 times a day. Apply to affected area of right lower abdomen for up to 4 weeks. 45 g 0 Gybxjrcgvej-Mtdeeczyt-Nobnwy 100-62.5-25 MCG/INH Aerosol Powder Breath Activated ([employer] [...] Tablet 3 Vitamin D (Ergocalciferol) 1.25 MG (55384 UT) Oral Capsule (Drisdol) TAKE 1 CAPSULE [...] Puff 4 Puff Inhalation Q4H PRN Mark Saman Singh, DO 4 Puff at 07/24/17 1137 ROPivacaine (Naropin) inj 1.5 mg 1.5 mg Injection PRN Isaiah Barbosa Cessna, DO 1.5 mg at 04/02/23 1014 bevaCIZumab (Avastin) inj 1.25 mg 1.25 mg Intravitreal PRN Kareler Chelsey Cessna, DO 1.25 mg at 04/02/23 1015 ALLERGIES: Review of patient's allergies indicates: Allergen Reactions Atenolol stomach pain Lisinopril hyperkalemia Sulfa Antibiotics Sulfamethoxazole Tingling, itch, s.o.b. REVIEW OF SYSTEMS: CONSTITUTIONAL: No change in weight, No weakness, No fatigue and No fevers, sweats, or chills EYE: No recent significant change in vision and No eye pain, redness, discharge EARS: No ear pain and No recent change in hearing NOSE: No history of frequent colds or sinusitis and No nasal stuffiness PULMONARY: No cough, sputum, or hemoptysis and No recent change in breathing CARDIOVASCULAR: No chest pain and No syncope EXTREMITIES: No pain, redness or swelling on the joints SKIN/INTEGUMENTARY: No edema, No rash and No itching NEUROLOGIC: Normal balance, No headaches, No seizures and No weakness PSYCHIATRIC: No depression, No anxiety and No psychosis FOCUSED PODIATRIC EXAM: Vitals: There were no vitals filed for this visit. General: Patient is awake alert oriented to person place time. No apparent distress. Vascular: DP/PT pulses palpable, verenice. CFT < 3 sec 1-5, verenice. No edema noted, verenice. Temperature gradient is normal warm to cold, verenice. Neurologic: Protective sensation intact to light touch, verenice. Sensation to sharp/dull is intact, verenice. Proprioception is intact, verenice. Vibratory sensation intact, verenice. There is no babinski response elicited, verenice. Ankle clonus is absent, verenice. Dermatological: Skin is dry and atrophic in appearance with no open lesions or interdigital macerations, verenice. Nails1-5, verenice are elongated and thickened. Pedal hair is absent, verenice. Hyperkeratotic lesions noted to the plantar/medial aspect of the 1st metatarsal head, verenice. Callus noted to the medial 1st MPJ, verenice. Musculoskeletal: POP noted to toes, verenice. No pain with active or passive ROM of the digits or ankle joint, verenice. Muscle strength is 5/5 for all muscle groups of the lower extremity, verenice. DIAGNOSTIC STUDIES: None Class Findings for Routine Foot Care Class A Findings: None Class B Findings: Advanced trophic changes (at least three of the following): hair growth (decreaseor absence), nail changes (thickening) and pigmentary changes (discoloration) Class C Findings: None Modifier: None ASSESSMENT: 1. Onychomycosis 2. Xerosis 3. Callus 4. Pain in toes, verenice PLAN: - Nails 1-5, verenice were trimmed with a nail nippers and mechanically debrided to appropriate length and thickness without incident with a mechanical bur. - Discussed using Vaseline to her feet after a shower/bath for added moisture instead of hand lotion. - Callus debrided with a 15 blade x2 - Pt to RTC in 3 months for further care. Instructed pt to call sooner with any problems or questions. Adriana Meza DPM documented in this encounter Nursing Notes * Gladys Tan LPN - 05/15/2023 10:01 AM EDT Pt presents for routine nail, callus care, no pain in feet. documented in this encounter Plan of Treatment Upcoming Encounters Date Type Specialty Care Team Description 05/15/2023 Office Visit Family Medicine Jennyfer Hensley MD [address] [place] [facility] [place] [id number] 06/11/2023 Imaging Radiology 06/13/2023 Office Visit Ophthalmology Isaiah Valle, DO [address] [place] [address] 07/23/2023 Office Visit Family Medicine Klaus Douglas MD [address] [place] [address] 08/21/2023 Office Visit Podiatry Adriana Meza DPM [address] [place] [address] Scheduled Procedures Name Priority Associated Diagnoses Date/Ti [...] Ratio 07/21/2023 07/21/2022 CKD HGB USE SMARTSET 62303 07/21/202307/21, 07/21/2022, 05/04/2021, Additional history exists CKD PHOS USE SMARTSET 60878 07/21/202312/2021, 05/03/2021, 05/02/2021, Additional history exists Depression Screening, [...] as of this encounter Visit Diagnoses Diagnosis Onychomycosis- Primary Dermatophytosis of nail Callus Corns and callosities Stage 3 chronic kidney disease, unspecified whether stage 3a or 3b CKD (HCC) Pain in toes of both feet documented in this encounter Advance Directives Latest [...] and were consensually agreed upon. Care Teams Rn Intake Relationship Specialty Start Date End Date Klaus Douglas MD [address] [place] [address] PCP - General 07/02/01 documented as of this encounter
--- OUTSIDE RECORDS SUMMARY | 2023-08-05 10:02 | External Medical Summary | Summary of Care ---
Author Name Unknown Organization [facility] Address [address] [place] [address] Phone [phone] Care Team Providers Care Retread Mold Operator Name Role Phone Klaus Douglas MD Primary Care Provider +1- [phone] Reason for Visit * Reason Comments eRx-Medication Refill Encounter Details Date Type Department Care Team Description 05/27/2023 Refill [facility] [address] [place] [address] Klaus Douglas MD [address] [place] [address] Essential hypertension with goal blood pressure less than 140/90; Diastolic dysfunction Allergies Active Allergy Reactions Severity Noted Date Comments Atenolol 06/15/1999 stomach pain Lisinopril 06/27/2010 hyperkalemia Sulfa Antibiotics 2020 Sulfamethoxazole 10/19/2006 Tingling, itch, s.o.b. documented as of this encounter (statuses as of 05/28/2023) Medications Medication Sig Dispensed Refills Start Date [...] daily. 30 Tab 11 05/30/2021 Active Nystatin 167482 UNIT/GM External Powder (Nystop) Apply topically to [...] 08/24/2022 Active Vitamin D (Ergocalciferol) 1.25 MG (41190 UT) Oral Capsule (Drisdol)Indications: Vitamin D deficiency [facility]Coronary artery disease involving [place] coronary artery of [place] heart without angina pectoris,COPD exacerbation (HCC) Take [...] as of this encounter (statuses as of 05/28/2023) Active Problems Problem Noted Date Exudative age-related [...] dysfunction 07/26/2017 Coronary artery disease invo lving [place] coronary artery without angina pectoris 07/26/2017 Osteoarthritis [...] as of this encounter (statuses as of 05/28/2023) Resolved Problems Problem Noted Date Resolved Date [...] as of this encounter (statuses as of 05/28/2023) Immunizations Name Administration Dates Next Due COVID-19 mRNA, LNP-s, No Pre serve, 2-Dose Series ([employer]) 08/24/2021,11/26/2020,11/05/2020 Covid-19, Mrna, Lnp-s, Pf, B ivalent, 30 Mcg, IM, 12 yrs and above ([employer]) 09/28/2022 Pneumococcal Conjugate Vacc, 13 Valent (Prevnar) [...] Notes * Telephone Encounter - Dhiraj Dominique, [facility] - 05/28/2023 2:17 PM EDTRefused Prescriptions: Disp Refills Isosorbide Dinitrate 20 MG Oral Tablet (Is*270 Ta*3 Sig: TAKE BY MOUTH 1 TABLET IN THE MORNING AND 1 TABLET AT NOON AND 1 TABLET BEFORE BEDTIME. AT 8AM, 12 NOON AND 4PM..Refused By: DHIRAJ DOMINIQUE WReason for Refusal: Duplicate Request documented in this encounter Plan of Treatment Upcoming Encounters Date Type Specialty Care Team Description 06/11/2023 Imaging Radiology 06/13/2023 Office Visit Ophthalmology Isaiah Valle DO [address] [place] [address] 07/23/2023 Office Visit Family Medicine Klaus Douglas MD [address] [place], [place] [id number] 08/21/2023 Office Visit Podiatry Adriana Meza DPM [address] [place] [address] Scheduled Procedures Name Priority Associated Diagnoses Date/Ti [...] Ratio 07/21/2023 07/21/2022 CKD HGB USE SMARTSET 32859 07/21/202307/21, 07/21/2022, 05/04/2021, Additional history exists CKD PHOS USE SMARTSET 94575 07/21/2023 11/0 12/2021, 05/03/2021, 05/02/2021, Additional history [...] as of this encounter Visit Diagnoses Diagnosis Essential hypertension with goal blood pressure less than 140/90 Diastolic dysfunction Heart disease, unspecified documented in this encounter Advance Directives Latest [...] and were consensually agreed upon. Care Teams Retread Mold Operator Relationship Specialty Start Date End Date Klaus Douglas MD [address] [place], [place] [phone] PCP - General 07/02/01 documented as of this encounter
--- OUTSIDE RECORDS SUMMARY | 2023-08-05 10:02 | External Medical Summary | Summary of Care ---
Author Name Unknown Organization [facility] Address [address] [place] [place] [facility] [place] [address] Phone [phone] Care Team Providers Care Litigation Legal Secretary Name Role Phone Klaus Douglas MD Primary Care Provider +1- [phone] Reason for Visit * Reason Comments Follow Up DIL/OCT OD * Precert (Routine) - Authorized Specialty Diagnoses / Procedures Referred By Renae alcala Referred To Contact Ophthalmology Diagnoses Exudative age-related macular degeneration of right eye with active choroidal neovascularization (HCC) Procedures INJECTION OF EYE DRUG INECTION,BEVACIZUMAB, 10 MG Isaiah Valle DO [address] [place] [address] Referral ID Status Reason Start Date Expiration Date V isits Requested Visits Authorized [id number] Authorized Precert 2020 09/16/2099 99 99 Encounter Details Date Type Department Care Team Description 06/13/2023 Office Visit Ophthalmology, [facility] [address] [place] [address] Isaiah Valle DO [address] [place] [address] Exudative age-related macular degeneration of right eye [...] daily. 30 Tab 11 05/30/2021 Active Nystatin 709241 UNIT/GM External Powder (Nystop) Apply topically to [...] 08/24/2022 Active Vitamin D (Ergocalciferol) 1.25 MG (53489 UT) Oral Capsule (Drisdol)Indications: Vitamin D deficiency [...] B, by GOLD 2017 classification ([facility]),Coronary artery disease involving [place] coronary artery of [place] heart without angina pectoris,COPD exacerbation ([facility]) Take two tablets by mouth on first day, then 1 tablet daily until gone 6 Tablet 0 05/15/2023 Active Amoxicillin-Pot Clavulanate 875-125 MG Oral Tablet (Augmentin)Indication s:Acute cough,COPD, group B, by GOLD 2017 classification (HCC),Coronary artery disease involving [place] coronary artery of [place] heart without angina pectoris,COPD exacerbation (HCC) Take [...] dysfunction 07/26/2017 Coronary artery disease invo lving [place] coronary artery without angina pectoris 07/26/2017 Osteoarthritis [...] mRNA, LNP-s, No Pre serve, 2-Dose Series ([employer]) 08/24/2021,11/26/2020,11/05/2020 Covid-19, Mrna, Lnp-s, Pf, B ivalent, [...] - 06/13/2023 11:15 AM EDT [facility] [place] Nursing notes [...] Isaiah Valle DO Avastin 1.25mg lot # [id number] Exp. Date: 07/09/23 * Nae Barrios RN [...] Family Medicine Klaus Douglas MD [address] [facility] [place] [id number] 08/21/2023 Office Visit Podiatry Adriana Meza DPM [address] [place] [address] 09/18/2023 Office Visit Family Medicine Klaus Douglas MD [address] [place] [address] Scheduled Orders Name Type Priority Associated Diagnoses [...] Ratio 07/21/2023 07/21/2022 CKD HGB USE SMARTSET 09570 07/21/202307/212, 07/21/2022, 05/04/2021, Additional history exists CKD PHOS USE SMARTSET 54720 07/21/2023 11/0 12/2021, 05/03/2021, 05/02/2021, Additional history [...] and were consensually agreed upon. Care Teams Litigation Legal Secretary Relationship Specialty Start Date End Date Klaus Douglas MD [place] [address] PCP - General 07/02/01 documented as of this encounter
--- OUTSIDE RECORDS SUMMARY | 2023-08-05 10:02 | External Medical Summary | Summary of Care ---
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 documented as of this encounter (statuses as of 05/31/2023) Medications Medication Sig Dispensed Refills Start Date [...] daily. 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 20 Tablet 0 05/31/2023 Active Hospital, Clinic, or Other Facility Administered [...] as of this encounter (statuses as of 05/31/2023) Active Problems Problem Noted Date Exudative age-related [...] dysfunction 07/26/2017 Coronary artery disease invo lving bad river band coronary artery without angina pectoris 07/26/2017 Osteoarthritis [...] as of this encounter (statuses as of 05/31/2023) Resolved Problems Problem Noted Date Resolved Date [...] as of this encounter (statuses as of 05/31/2023) Immunizations Name Administration Dates Next Due COVID-19 mRNA, LNP-s, No Pre serve, 2-Dose Series ([facility]) 08/24/2021,11/26/2020,11/05/2020 Covid-19, Mrna, Lnp-s, Pf, B ivalent, [...] encounter Miscellaneous Notes * Telephone Encounter - Miguel Ángel Frankel MD - 05/31/2023 8:16 AM EDT Signed Prescriptions: Disp Refills Amoxicillin-Pot Clavulanate 875-125 MG Ora*20 Tab*0 Sig: Take 1 Tablet by mouth in the morning and 1 Tablet before bedtime. Authorizing Provider: MIGUEL ÁNGEL FRANKEL * Telephone Encounter - Gema Torre LPN - 05/30/2023 8:40 AM EDTPending Prescriptions: Disp Refills Amoxicillin-Pot Clavulanate 875-125 MG Ora*20 Tab*0 Sig: Take 1 Tablet by mouth in the morning and 1 Tablet before bedtime. * Telephone Encounter - Gema Torre LPN - 05/30/2023 8:39 AM EDT Pending Prescriptions: Disp Refills Amoxicillin-Pot Clavulanate 875-125 MG Or*20 Tab*0 Sig: Take 1 Tablet by mouth in the morning and 1 Tablet before bedtime. 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 pectoris I25.10 Bilateral carotid artery stenosis I65.23 MARILEE (generalized anxiety disorder) F41.1 Hyperparathyroidism, 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 Mild emphysema ([facility]) J43.9 Severe aortic stenosis I35.0 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 Numbness and tingling R20.0, R20.2 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 History of total hip replacement Z96.649 History of cataract extraction Z98.49 History of spinal surgery Z98.890 History of hysterectomy Z90.710 History of cholecystectomy Z90.49 Chronic kidney disease, stage 3b ([facility]) N18.32 COPD, group B, by GOLD 2017 classification ([facility]) J44.9 LBBB (left bundle branch block) I44.7 Exudative age-related macular degeneration of right eye with active choroidal neovascularization ([facility]) H35.3211 Labs: Lab Results Component Value Date/Time CREATININE - [facility] 1.1 (H) 07/21/2022 03:27 PM CREATININE - [facility] 1.4 (H) 03/02/2020 09:50 AM CREATININE ISTAT 1.6 (H) 03/31/2019 10:02 AM CREATININE, RANDOM URINE - [facility] 55 07/21/2022 03:35 PM CREATININE, RANDOM URINE - [facility] 49 03/02/2020 09:50 AM CREATININE-OUTSIDE LAB 1.50 (A) 12/31/2018 12:00 AM Lab Results Component Value Date/Time POTASSIUM - [facility] 4.6 07/21/2022 03:27 PM POTASSIUM - [facility] 4.8 03/02/2020 09:50 AM POTASSIUM POCT - [facility] 4.4 05/15/2019 12:59 PM POTASSIUM-OUTSIDE LAB 4.5 12/31/2018 12:00 AM Lab Results Component Value Date/Time TSH - [facility] 2.00 09/20/2022 11:47 AM TSH - [facility] 1.23 05/16/2019 04:00 AM TSH - OUTSIDE LAB 2.470 12/31/2018 12:00 AM Lab Results Component Value Date/Time LDL CHOLESTEROL (CALCULATED) - [facility] 99 03/02/2021 10:30 AM LDL CHOLESTEROL (CALCULATED) - [facility] 50 03/02/2020 09:50 AM LDL CHOLESTEROL (CALCULATED) - [facility] 67 04/18/2017 08:19 AM LDL CHOLESTEROL (DIRECT MEASURE) - [facility] NOT APPLICABLE 03/02/2020 09:50 AM LDL CHOLESTEROL (DIRECT MEASURE) - [facility] NOT APPLICABLE 04/18/2017 08:19 AM LDL CHOLESTEROL (DIRECT MEASURE) - [facility] 98 10/28/2013 10:22 AM LDL CHOLESTEROL (DIRECT MEASURE) - [facility] 86 10/06/2011 09:23 AM Lab Results Component Value Date/Time ALT - [facility] 9 (L) 07/21/2022 03:27 PM ALT - [facility] 12 03/02/2020 09:50 AM Hemoglobin AIC Results: Lab Results Component Value Date/Time HEMOGLOBIN A1C - [facility] 5.5 06/16/2019 09:49 AM * Telephone Encounter - Emelia Guajardo - 05/29/2023 7:08 PM EDTPending Prescriptions: Disp Refills Amoxicillin-Pot Clavulanate 875-125 MG Ora*20 Tab*0 Sig: Take 1Tablet by mouth in the morning and 1 Tablet before bedtime. documented in this encounter Plan of Treatment Upcoming Encounters Date Type Specialty Care Team Description 06/11/2023 Imaging Radiology 06/13/2023 Office Visit Ophthalmology Isaiah Valle DO [address] [place] [address] 07/23/2023 Office Visit Family Medicine Klaus Douglas MD [address] [facility] [place] [address] 08/21/2023 Office Visit Podiatry Adriana Meza DPM [address] [place] [address] 09/18/2023 Office Visit Family Medicine Klaus Douglas MD [address] [place] [facility] [place] [address] Scheduled Procedures Name Priority Associated Diagnoses Date/Ti [...] Ratio 07/21/2023 07/21/2022 CKD HGB USE SMARTSET 69156 07/21/202307/21, 07/21/2022, 05/04/2021, Additional history exists CKD PHOS USE SMARTSET 08392 07/21/2023 11/0 12/2021, 05/03/2021, 05/02/2021, Additional history [...] of this encounter Visit Diagnoses Diagnosis Acute cough COPD, group B, by GOLD 2017 classification ([facility]) 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 Care Teams Life Assurance Representative Relationship Specialty Start Date End Date Klaus Douglas MD [address] [place] [address] PCP - General 07/02/01 documented as of this encounter
--- OUTSIDE RECORDS SUMMARY | 2023-08-05 10:02 | External Medical Summary ---
Author Name Unknown Address Unknown Organization K01:[facility]ATORY [facility] [place] - [address] [facility] [address] Laboratory Report Ordering Provider Test Date Status JOSTIN DEL ROSARIO 05/15/2023 15:09:43 Final For PreSurgery, Procedure, O B Admit, or Surveillance testing - Nasal Turbinate source preferred.

For Symptomatic testing - Nasopharyngeal source preferred.
null Observation Date Value Abnormality Reference (Units ) Status SARS Coronavirus 2 05/15/2023 15:09:43 Negative N egative Final 2018 Novel Coronavirus not d etected.

This automated test was developed and its performance characteristics determined by [employer]. It has not been cleared or approved by the U.S. Food and Drug Administration (FDA). FDA does not require this test to go thru premarket FDA review. This test is used for clinical purposes. It should not be regarded as investigational or for research. This laboratory is certified under the Clinical Laboratory Improvement Amendments (CLIA) as qualified to perform high complexity clinical laboratory testing.

This test is a nucleic acid amplification test (NAAT), a reverse transcriptase polymerase chain reaction (RT-PCR) test, or a Centers for Disease Control-acceptable equivalent. The test is performed in a high complexity Clinical Laboratory Improvement Amendments-(CLIA) certified laboratory. The test is acceptable for SARS-CoV-2 diagnosis, surveillance, and travel within the [place] and to most countries. Please check with local testing authorities about requirements before travel. Performing Location [facility]ATORY [facility] [place] - [address] [facility] [address]
--- OUTSIDE RECORDS SUMMARY | 2023-08-05 10:03 | External Medical Summary | Summary of Care ---
Author Name Unknown Organization [facility] Address [address] [place] [address] Phone [phone] Care Team Providers Care [employer] Clerk Name Role Phone Klaus Douglas MD Primary Care Provider +1- [phone] Reason for Visit * Reason Comments Follow Up 10-[address] OD Avastin * Precert (Routine) - Authorized Specialty Diagnoses / Procedures Referred By Renae alcala Referred To Contact Ophthalmology Diagnoses Exudative age-related macular degeneration of right eye with active choroidal neovascularization (HCC) Procedures INJECTION OF EYE DRUG INECTION,BEVACIZUMAB, 10 MG Isaiah Valle DO [address] [place] [address] Referral ID Status Reason Start Date Expiration Date V isits Requested Visits Authorized [id number] Authorized Precert 2020 09/16/2099 99 99 Encounter Details Date Type Department Care Team Description 04/02/2023 Office Visit Ophthalmology, [facility] [address] [place] [address] Isaiah Valle DO [address] [place] [address] Exudative age-related macular degeneration of right eye with active choroidal neovascularization (HCC)* Allergies Active Allergy Reactions Severity Noted Date Comments Atenolol 06/15/1999 stomach pain Lisinopril 06/27/2010 hyperkalemia Sulfa Antibiotics 2020 Sulfamethoxazole 10/19/2006 Tingling, itch, s.o.b. documented as of this encounter (statuses as of 04/02/2023) Medications Medication Sig Dispensed Refills Start Date [...] daily. 30 Tab 11 05/30/2021 Active Nystatin 745276 UNIT/GM External Powder (Nystop) Apply topically to [...] Tablet by mouth at bedtime. 0 Active Isosorbide Dinitrate 20 MG Oral Tablet (Isordil)Indications: Essential hypertension with goal blood pressure less than 140/90,Diastolic dysfunction Take by mouth 1 Tablet in the morning AND 1 Tablet at noon AND 1 Tablet before bedtime. at 8am, 12 noon and 4pm.. 270 Tablet 3 06/05/2022 Active Metoprolol Succinate ER 25 MG Oral Tablet Extended Release 24 Hour (toPROL XL) Take by mouth 0.5 Tablets in the morning. 45 Tablet 3 06/05/2022 Active Simvastatin 20 MG Oral Tablet (Zocor) [...] 08/24/2022 Active Vitamin D (Ergocalciferol) 1.25 MG (57504 UT) Oral Capsule (Drisdol)Indications: Vitamin D deficiency TAKE 1 CAPSULE BY MOUTH ONE TIME PER WEEK 12 Capsule 3 10/24/2022 Active FLUoxetine HCl 10 MG Oral Capsule (PROzac) Take 1 Capsule by mouth in the morning. 90 Capsule 1 01/30/2023 Active HYDROcodone-Acetamino phen 5-325 MG Oral TabletIndications:Chr onic bilateral low back pain without sciatica Take 1 Tablet by mouth every 8 hours as needed for Pain, Mild or Pain, Severe. 90 Tablet 0 03/06/2023 Active Pantoprazole Sodium 20 MG Oral Tablet [...] for Sleep. 90 Tablet 0 03/21/2023 Active Hospital, Clinic, or Other Facility Administered [...] as of this encounter (statuses as of 04/02/2023) Active Problems Problem Noted Date Exudative age-related [...] dysfunction 07/26/2017 Coronary artery disease invo lving yurok coronary artery without angina pectoris 07/26/2017 Osteoarthritis [...] as of this encounter (statuses as of 04/02/2023) Resolved Problems Problem Noted Date Resolved Date [...] as of this encounter (statuses as of 04/02/2023) Immunizations Name Administration Dates Next Due COVID-19 mRNA, LNP-s, No Pre serve, 2-Dose Series ([facility]) 08/24/2021,11/26/2020,11/05/2020 Covid-19, Mrna, Lnp-s, Pf, B ivalent, 30 Mcg, IM, 12 yrs and above ([facility]) 09/28/2022 Pneumococcal Conjugate Vacc, 13 Valent (Prevnar) 11/03/2014 Pneumococcal Polysaccharide PPV23 (Pneumovax) 07/02/2001 Seasonal Influenza, Quadriva lent Hd (Fluzone Hd) 07/04/2022,07/02/2021 Seasonal Influenza, Quadriva lent, No Preserve, 6 Mons & Above, IM 06/27/2018,07/02/2017 Seasonal Influenza, Quadriva lent, No Preserve, Adjuvanted, 65+ Yrs, IM 07/01/2020 Seasonal Influenza, Quadriva lent, No Preserve, IM [...] this encounter Progress Notes * Isaiah Valle, - 04/02/2023 10:00 AM EDT [facility] [place] Nursing notes reviewed. Eye vitals reviewed. Mood and Affect: normal HPI: Makenna Harris is an 87 year old female who presents for AMD No other eye complaints. Denies significant pain. Base Eye Exam Visual Acuity (Snellen - Linear) Right Left Dist cc 20/150 -2 20/400 -2 Dist ph cc NI NI Correction: Glasses Tonometry (Tonopen, 9:54 AM) Right Left Pressure 9 9 Pupils Pupils Light Shape React APD Right PERRL 3 Round Brisk None Left PERRL 3 Round Brisk None Visual Pena (Counting fingers) Right Left Full Full Extraocular Movement Right Left Full Full Neuro/Psych Oriented x3: Yes Dilation Both eyes: 0.5% Proparacaine @ 9:53 AM Dilation #2 Right eye: 1.0% Mydriacyl, 2.5% Phenylephrine @ 9:53 AM Dilation Comments Patient cautioned that effects of dilation may last 2-7 hours dependant upon individual reaction. It was discussed that driving while dilated is not recommended. EXTERNAL: The ocular adnexae are unremarkable. SLE: [...] OCT Interpretation: OD: drusen/atrophy, no cme/srlfuid - STABLE OS: 10/30/2022 resolved SRFluid, +drusen/atrophy/fibrosis/ORT - stable A/P: 1. Age-related macular degeneration OD: wet - s/p Avastin (01/16/23, 10/30/22, 08/16/22, 06/08/22, 04/11/22, 02/09/22, 12/15/21, 10/17/21, 08/22/21, 10-5-21, 8-4-, 6--, 4--, --, 09-07-, 07/28/20, 06/22/20)--improved - 11 weeks since last injection OS: wet - s/p Eylea OS (07/19/16, 06/07/16, 03/14/16, 01/04/16, 11/09/15, 09/22/15, 08/23/15) - >5 years since last injection -no benefit to further injections OS -ex-smoker [...] its entirety. F/u 10-12 weeks - dilate and OCT OD Isaiah Valle DO 222 CC: Daniela Leyva, OD PCP: Klaus Douglas MD documented in this encounter Nursing Notes * Brandy Stuart RN - 04/02/2023 10:13 AM EDT Makenna Harris to receive # 18 Avastin 1.25mg Injection of the Right eye. Correct eye confirmed with patient and marked by Isaiah Valle DO Avastin 1.25mg lot # [id number] Exp. Date: 05/22/23 * Brandy Stuart RN - 04/02/2023 9:55 AM EDT Makenna Harris is a 87 year old year old female who presents for AMD . Last Office Visit: 01/16/2023 (in office), Visit date not found (telemedicine) Patient currently states no change in vision. Are you diabetic? No Do you drive? no OCT image(s) of right eye acquired and filed/scanned into chart. documented in this encounter Plan of Treatment Upcoming Encounters Date Type Specialty Care Team Description 05/14/2023 Office Visit Podiatry Adriana Meza DPM [address] [place] [address] 06/11/2023 Imaging Radiology 06/13/2023 Office Visit Ophthalmology Isaiah Valle DO [address] [place] [address] Scheduled Procedures Name Priority Associated Diagnoses Date/Ti [...] Ratio 07/21/2023 07/21/2022 CKD HGB USE SMARTSET 51870 07/21/202307/21, 07/21/2022, 05/04/2021, Additional history exists CKD PHOS USE SMARTSET 24170 07/21/2023 11/0 12/2021, 05/03/2021, 05/02/2021, Additional history [...] 1.25 mg, Intravitreal, PRN Other, Starting on 10/30/22 at 1121, Until Tu10/30/23 at 1120, For 365 days Given 04/02/2023 10:15 AM EDT 1.25 mg Eye Right Given 01/16/2023 10:17 AM EDT 1.25 mg E ye Right Given 10/30/2022 11:12 AM EST 1.25 mg E ye Right ROPivacaine (Naropin) inj 1.5 mg 1.5 mg, Injection, PRN Other, Starting on Simran 06/08/22 at 1231, Until 06/08/23 at 1230, For 365 days Given 04/02/2023 10:14 AM EDT 1.5 mg Eye Right Given 01/16/2023 10:16 AM EDT 1.5 mg E ye Right Given 10/30/2022 11:12 AM EST 1.5 mg E ye Right documented in this encounter Advance Directives Latest [...] and were consensually agreed upon. Care Teams [employer] Clerk Relationship Specialty Start Date End Date Klaus Douglas MD [address] [place] [address] PCP - General 07/02/01 documented as of this encounter
--- OUTSIDE RECORDS SUMMARY | 2023-08-05 10:03 | External Medical Summary | Summary of Care ---
Author Name Unknown Organization [facility] Address [address] [place] [address] Phone [phone] Care Team Providers Care Digital Production Artist Name Role Phone Klaus Douglas MD Primary Care Provider +1- [phone] Reason for Visit * Reason Onset Date Comments Medication Refill 03/24/2023 Encounter Details Date Type Department Care Team Description 03/24/[address] [facility] [address] [place] [address] Klaus Douglas MD [address] [place] [address] Chronic bilateral low back pain without sciatica Allergies Active Allergy Reactions Severity Noted Date Comments Atenolol 06/15/1999 stomach pain Lisinopril 06/27/2010 hyperkalemia Sulfa Antibiotics 2020 Sulfamethoxazole 10/19/2006 Tingling, itch, s.o.b. documented as of this encounter (statuses as of 04/03/2023) Medications Medication Sig Dispensed Refills Start Date [...] daily. 30 Tab 11 05/30/2021 Active Nystatin 252896 UNIT/GM External Powder (Nystop) Apply topically to [...] 08/24/2022 Active Vitamin D (Ergocalciferol) 1.25 MG (57065 UT) Oral Capsule (Drisdol)Indications: Vitamin D deficiency [...] as of this encounter (statuses as of 04/03/2023) Active Problems Problem Noted Date Exudative age-related [...] dysfunction 07/26/2017 Coronary artery disease invo lving marshall coronary artery without angina pectoris 07/26/2017 Osteoarthritis [...] as of this encounter (statuses as of 04/03/2023) Resolved Problems Problem Noted Date Resolved Date [...] as of this encounter (statuses as of 04/03/2023) Immunizations Name Administration Dates Next Due COVID-19 mRNA, LNP-s, No Pre serve, 2-Dose Series ([facility]) 08/24/2021,11/26/2020,11/05/2020 Covid-19, Mrna, Lnp-s, Pf, B ivalent, 30 Mcg, IM, 12 yrs and above ([facility]) 09/28/2022 Pneumococcal Conjugate Vacc, 13 Valent (Prevnar) 11/03/2014 Seasonal Influenza, Quadriva lent Hd (Fluzone Hd) [...] encounter Miscellaneous Notes * Telephone Encounter - Fifi Mina LPN - 04/03/2023 10:09 AM EDT Approved through 03/30/2024. Pharmacy aware. * Telephone Encounter - Sulma Iyer LPN - 03/30/2023 8:39 AM EDT PA submitted via [facility] Zhang: [id number] * Telephone Encounter - Kelsey Alvarado LPN - 03/29/2023 9:20 AM EDTPending Prescriptions: Disp Refills HYDROcodone-Acetaminophen 5-325 MG Oral Ta*90 Tab*0 Sig: Take 1 Tablet by mouth every 8 hours as needed for Pain, Mild or Pain, Severe. * Telephone Encounter - Kelsey Alvarado LPN - 03/29/2023 9:11 AM EDT Provider to address: med refill Reason for Call: Medication Refill Contact: [facility] Contact Type: Medication Outcome: called patient. Said the pharmacy never notified them that it was ready. So she did not pick it up on 03/06. Patient requested I call the pharmacy and check to see if it is okay to olive picker. Called the pharmacy. It needs a prior auth. Prefer tramadol, ibuprofen, tylenol. Called the patient. Was not allowed to call due to smart zainab on their phone. Called the cell phone and left a message to return call. Total Time including non face to face (minutes): 15 * Telephone Encounter - Klaus Douglas MD - 03/26/2023 4:53 PM EDTPending Prescriptions: Disp Refills HYDROcodone-Acetaminophen 5-325 MG Oral Ta*90 Tab*0 Sig: Take 1 Tablet by mouth every 8 hours as needed for Pain, Mild or Pain, Severe. * Telephone Encounter - Kalus Douglas MD - 03/26/2023 4:52 PM EDT Did she get the prescription sent 03/06/23? It is not showing that she filled it in the PDMP. If shedid, she is early for this prescription. * Telephone Encounter - Edu Raymundo [facility] - 03/26/2023 1:10 PM EDTPending Prescriptions: Disp Refills HYDROcodone-Acetaminophen 5-325 MG Oral Ta*90 Tab*0 Sig: Take 1 Tablet by mouth every 8 hours as needed for Pain, Mild or Pain, Severe. * Telephone Encounter - Edu Raymundo [facility] - 03/26/2023 1:09 PM EDT I have reviewed the patients controlled substance dispensing history in the Prescription Drug Monitoring Program in compliance with the [place] regulations before prescribing a controlled substance. PDMP checked on 03/26/2023. Pending Prescriptions: Disp Refills HYDROcodone-Acetaminophen 5-325 MG Oral T*90 Tab*0 Sig: Take 1 Tablet by mouth every 8 hours as needed for Pain, Mild or Pain, Severe. Last Visit: 09/20/2022 (in office), Visit date not found (telemedicine) Next Visit: Visit date not found Date medication was last filled: 12/20 Date medication is due for refill: 01/18 Pharmacy: [id number] [address] [facility] Is this request for a controlled substance? Yes and Urine Drug Screen Not completed Toxicology results: Results for orders placed or performed during the hospital encounter of 04/30/21 TOXICOLOGY, URINESCREEN W/ CONFIRMATION Result Value Amphetamine Negative Benzodiazepines [...] Results Review. Please approve if appropriate. Thanks, Дмитрий Raymundo, PharmD Clinical Pharmacist [facility] ([facility]) (Formerly Telepharm[facility]) [phone] 03/26/2023 1:10 PM documented in this encounter Plan of Treatment Upcoming Encounters Date Type Specialty Care Team Description 05/14/2023 Office Visit Podiatry Adriana Meza DPM [address] [place] [address] 06/11/2023 Imaging Radiology 06/13/2023 Office Visit Ophthalmology Isaiah Valle DO [address] [place] [address] Scheduled Procedures Name Priority Associated Diagnoses Date/Ti [...] Ratio 07/21/2023 07/21/2022 CKD HGB USE SMARTSET 15344 07/21/202307/21, 07/21/2022, 05/04/2021, Additional history exists CKD PHOS USE SMARTSET 72992 07/21/202312/2021, 05/03/2021, 05/02/2021, Additional history exists Depression [...] and were consensually agreed upon. Care Teams Digital Production Artist Relationship Specialty Start Date End Date Klaus Douglas MD [address] [place], [place] [id number] PCP - General 07/02/01 documented as of this encounter
--- OUTSIDE RECORDS SUMMARY | 2023-08-05 10:03 | External Medical Summary | Summary of Care ---
Author Name Unknown Organization [facility] Address [address] [place] [address] Phone [phone] Care Team Providers Care Astronomy Instructor Name Role Phone Cholo Franks MD Primary Care Provider +1- [phone] Reason for Visit * Reason Onset Date Comments Medication Refill 03/03/2023 Encounter Details Date Type Department Care Team Description 03/03/2023 Refill [facility] [address] [place] [address] Cholo Franks MD [address] [place] [address] Chronic bilateral low back pain without sciatica Allergies Active Allergy Reactions Severity Noted Date Comments Atenolol 06/15/1999 stomach pain Lisinopril 06/27/2010 hyperkalemia Sulfa Antibiotics 2020 Sulfamethoxazole 10/19/2006 Tingling, itch, s.o.b. documented as of this encounter (statuses as of 03/06/2023) Medications Medication Sig Dispensed Refills Start Date [...] daily. 30 Tab 11 05/30/2021 Active Nystatin 360685 UNIT/GM External Powder (Nystop) Apply topically to [...] Tablet by mouth at bedtime. 0 Active Furosemide 20 MG Oral Tablet (Lasix) Take by mouth 1 Tablet once a day on Sunday, Sunday, and Sunday only . 40 Tablet 3 04/24/2022 Active Isosorbide Dinitrate 20 MG Oral Tablet [...] 08/24/2022 Active Vitamin D (Ergocalciferol) 1.25 MG (37621 UT) Oral Capsule (Drisdol)Indications :Vitamin D deficiency TAKE 1 CAPSULE BY MOUTH ONE TIME PER WEEK 12 Capsule 3 10/24/2022 Active Zolpidem Tartrate 5 MG Oral Tablet (Ambien) Take 1 Tablet by mouth at bedtime as needed for Sleep. 90 Tablet 0 12/20/2022 Active Omeprazole 40 MG Oral Capsule Delayed Release (PriLOSEC) Take 1 Capsule by mouth in the morning. 90 Capsule 3 01/29/2023 Active FLUoxetine HCl 10 MG Oral Capsule (PROzac) Take 1 Capsule by mouth in the morning. 90 Capsule 1 01/30/2023 Active HYDROcodone-Acetamin ophen 5-325 MG Oral TabletIndications:Ch ronic bilateral low back pain without sciatica Take 1 Tablet by mouth every 8 hours as needed for Pain, Mild or Pain, Severe. 90 Tablet 0 03/06/2023 Active HYDROcodone-Acetamin ophen 5-325 MG Oral TabletIndications:Ch ronic bilateral low back pain without sciatica Take 1 Tablet by mouth every 8 hours as needed for Pain, Mild or Pain, Severe. 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 Encounter for long-term (current) use of medicat ions 09/03/2000 06/24/2013 Overview: ICD-10 update of inactive term Tobacco use disorder 07/27/2000 07/02/2001 Respiratory symptoms 07/27/2000 06/24/2013 Overview: ICD-10 update of inactive term documented as of this encounter (statuses as of 03/06/2023) Immunizations Name Administration Dates Next Due COVID-19 mRNA, LNP-s, No Pre serve, 2-Dose Series (Slated) 08/24/2021,11/26/2020,11/05/2020 Covid-19, Mrna, Lnp-s, Pf, B ivalent, 30 Mcg, IM, 12 yrs and above (Slated) 09/28/2022 Pneumococcal Conjugate Vacc, 13 Valent (Prevnar) [...] Telephone Encounter - Cholo Franks MD - 03/06/2023 4:24 PM EDTSigned Prescriptions: Disp Refills HYDROcodone-Acetaminophen 5-325 MG Oral Ta*90 Tab*0 Sig: Take 1 Tablet by mouth every 8 hours as needed for Pain, Mild or Pain, Severe.Authorizing Provider: CHOLO FRANKS * Telephone Encounter - Leo Golden, [facility] - 03/05/2023 1:13 PM EDTPending Prescriptions: Disp Refills HYDROcodone-Acetaminophen 5-325 MG Oral Ta*90 Tab*0 Sig: Take 1 Tablet by mouth every 8 hours as needed for Pain, Mild or Pain, Severe. * Telephone Encounter - Leo Golden, [facility] - 03/05/2023 1:05 PM EDT Adherence tracker is showing that this was dispensed 02/02/2023 but PDMP is not showing this fill. Attempted to confirm with pharmacy. Pharmacy is not taking phone calls. I have reviewed the patients controlled substance dispensing history in the Prescription Drug Monitoring Program in compliance with the [place] regulations before prescribing a controlled substance. PDMP checked on 03/05/2023. Pending Prescriptions: Disp Refills HYDROcodone-Acetaminophen 5-325 MG Oral T*90 Tab*0 Sig: Take 1 Tablet by mouth every 8 hours as needed for Pain, Mild or Pain, Severe. Last Visit: 09/20/2022 (in office), Visit date not found (telemedicine) Next Visit: Visit date not found Date medication was last filled: 02/02/2023 Date medication is due for refill:03/03/2023 Pharmacy: [id number] [facility] Is this request for a controlled substance? [...] Results Review. Please approve if appropriate. Thank You, Leo Golden, Pharm-D Clinical Pharmacist [facility] ([facility]) (Formerly Telepharmacy) [phone] 03/05/2023, 1:05 PM documented in this encounter Plan of Treatment Upcoming Encounters Date Type Specialty Care Team Description 04/02/2023 Office Visit Ophthalmology Isaiah Valle DO [address] [place] [address] 05/14/2023 Office Visit Podiatry Adriana Meza DPM [address] [place] [address] 06/11/2023 Imaging Radiology Scheduled Procedures Name Priority Associated Diagnoses Date/Ti me ESOPHAGOGASTRODUODENOSCOPY ( EGD), FLEXIBLE, TRANSORAL, DIAGNOSTIC Recall Esophageal dysphagia Health Maintenance Due Date Last Done Comments Alpha-1 Antitrypsin 1953 Zoster Vaccines (2 of 2) 07/25/2013 05/30/2013, 05/18 *BISPHONATE OR OTHER ACCEPTABLE MEDICATION NEEDED FOR OSTEOPOROSIS (REFER TO SMARTSET #1146) 05/20/2019 Albumin/Creatinine Ratio 07/21/2023 07/21/2022 CKD HGB USE SMARTSET 29574 07/21/202307/21, 07/21/2022, 05/04/2021, Additional history exists CKD PHOS USE SMARTSET 31343 07/21/2023 11/0 12/2021, 05/03/2021, 05/02/2021, Additional history exists Depression Screening, Annual for Pts 12 and Over 09/20/2023 09/20/2022 O2 ASSESSMENT COMPLETED IN PAST YEAR FOR COPD 11/06/2023 11/06/2022 DTaP,Tdap,and Td Vaccines (2 - Td or Tdap) 04/30/2031 04/30/2021, 06/02/2008, 12/16/1993, Additional history exists Pneumococcal Vaccine: 65+ Years Completed 11/03/2014, 07/02/2001 Influenza Vaccine (FLU shot) Completed , 07/02/2021, 07/02/2021, Additional history exists COVID-19 Vaccine Completed 09/28/2022, 04/2021, 11/26/2020, Additional [...] and were consensually agreed upon. Care Teams Astronomy Instructor Relationship Specialty Start Date End Date Cholo Franks MD [facility] [place] [address] PCP - General 07/02/01 documented as of this encounter
--- OUTSIDE RECORDS SUMMARY | 2023-08-05 10:03 | External Medical Summary | Summary of Care ---
Author Name Unknown Organization [facility] Address [address] [place] [address] Phone [phone] Care Team Providers Care Set Off Press Operator Name Role Phone Cholo Franks MD Primary Care Provider +1- [phone] Reason for Visit * Reason Comments eRx-Medication Refill Encounter Details Date Type Department Care Team Description 04/23/2023 Refill [facility] [address] [place] [address] Cholo Franks MD [address] [place] [address] Essential hypertension with goal blood pressure less than 140/90; Diastolic dysfunction Allergies Active Allergy Reactions Severity Noted Date Comments Atenolol 06/15/1999 stomach pain Lisinopril 06/27/2010 hyperkalemia Sulfa Antibiotics 2020 Sulfamethoxazole 10/19/2006 Tingling, itch, s.o.b. documented as of this encounter (statuses as of 04/24/2023) Medications Medication Sig Dispensed Refills Start Date [...] daily. 30 Tab 11 05/30/2021 Active Nystatin 793941 UNIT/GM External Powder (Nystop) Apply topically to [...] Tablet by mouth at bedtime. 0 Active Metoprolol Succinate ER 25 MG Oral [...] 08/24/2022 Active Vitamin D (Ergocalciferol) 1.25 MG (53523 UT) Oral Capsule (Drisdol)Indication s:Vitamin D deficiency TAKE 1 CAPSULE BY MOUTH ONE TIME PER WEEK 12 Capsule 3 10/24/2022 Active FLUoxetine HCl 10 MG Oral Capsule (PROzac) Take 1 Capsule by mouth in the morning. 90 Capsule 1 01/30/2023 Active HYDROcodone-Acetami nophen 5-325 MG Oral TabletIndications:C [...] 4 PM 270 Tablet 2 04/24/2023 Active Isosorbide Dinitrate 20 MG Oral Tablet (Isordil)Indication s:Essential hypertension with goal blood pressure less than 140/90,Diastolic dysfunction Take by mouth 1 Tablet in the morning AND 1 Tablet at noon AND 1 Tablet before bedtime. at 8am, 12 noon and 4pm.. 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 07/26/2017 Osteoarthritis [...] as of this encounter (statuses as of 04/24/2023) Resolved Problems Problem Noted Date Resolved Date [...] as of this encounter (statuses as of 04/24/2023) Immunizations Name Administration Dates Next Due COVID-19 mRNA, LNP-s, No Pre serve, 2-Dose Series ([employer]) 08/24/2021,11/26/2020,11/05/2020 Covid-19, Mrna, Lnp-s, Pf, B ivalent, 30 Mcg, IM, 12 yrs and above ([employer]) 09/28/2022 Pneumococcal Conjugate Vacc, 13 Valent (Prevnar) [...] encounter Miscellaneous Notes * Telephone Encounter - Elke Martínez [facility] - 04/24/2023 10:13 AM EDTSigned Prescriptions: Disp Refills Isosorbide Dinitrate 20 MG Oral Tablet (Is*270 Ta*2 Sig: TAKE 1 TABLET BY MOUTH EVERY MORNING TAKE 1 TABLET AT NOON, AND 1 TAB BEFORE BEDTIME, AT 8 AM, 12 NOON, AND4 PMAuthorizing Provider: CHOLO FRANKS User: ELKE MARTÍNEZ documented in this encounter Plan of Treatment Upcoming Encounters Date Type Specialty Care Team Description 05/15/2023 Office Visit Podiatry Adriana Meza DPM [address] [place] [address] 06/11/2023 Imaging Radiology 06/13/2023 Office Visit Ophthalmology Isaiah Valle DO [address] [place] [address] Scheduled Procedures Name Priority Associated Diagnoses Date/Ti [...] Ratio 07/21/2023 07/21/2022 CKD HGB USE SMARTSET 27445 07/21/202307/212, 07/21/2022, 05/04/2021, Additional history exists CKD PHOS USE SMARTSET 63719 07/21/2023 11/0 12/2021, 05/03/2021, 05/02/2021, Additional history [...] and were consensually agreed upon. Care Teams Set Off Press Operator Relationship Specialty Start Date End Date Cholo Franks MD [facility] [place] [address] PCP - General 07/02/01 documented as of this encounter
--- OUTSIDE RECORDS SUMMARY | 2023-08-05 10:03 | External Medical Summary | Summary of Care ---
Author Name Unknown Organization [facility] Address [address] [place] [address] Phone [phone] Care Team Providers Care Rotor Blade Installer Name Role Phone Klaus Douglas MD Primary Care Provider +1- [phone] Encounter Details Date Type Department Care Team Description 05/10/2023 Patient Reported Data Patient Survey Ortho OBERD Allergies Active Allergy Reactions Severity Noted Date Comments Atenolol 06/15/1999 stomach pain Lisinopril 06/27/2010 hyperkalemia Sulfa Antibiotics 2020 Sulfamethoxazole 10/19/2006 Tingling, itch, s.o.b. documented as of this encounter (statuses as of 05/10/2023) Medications Medication Sig Dispensed Refills Start Date [...] daily. 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 07/26/2017 Osteoarthritis [...] as of this encounter (statuses as of 05/10/2023) Resolved Problems Problem Noted Date Resolved Date [...] as of this encounter (statuses as of 05/10/2023) Immunizations Name Administration Dates Next Due COVID-19 [...] Meza DPM [address] [place] [address] 06/11/2023 Imaging Radiology 06/13/2023 Office Visit Ophthalmology Isaiah Valle DO [address] [place] [address] Scheduled Procedures Name Priority Associated Diagnoses Date/Ti [...] Ratio 07/21/2023 07/21/2022 CKD HGB USE SMARTSET 32607 07/21/202307/21, 07/21/2022, 05/04/2021, Additional history exists CKD PHOS USE SMARTSET 15569 07/21/2023 11/0 12/2021, 05/03/2021, 05/02/2021, Additional history [...] and were consensually agreed upon. Care Teams Rotor Blade Installer Relationship Specialty Start Date End Date Klaus Douglas MD [address] [place] [address] PCP - General 07/02/01 documented as of this encounter
--- OUTSIDE RECORDS SUMMARY | 2023-08-05 10:03 | External Medical Summary | Summary of Care ---
Author Name Unknown Organization [facility] Address [address] [place] [address] Phone [phone] Care Team Providers Care Rod Buster Helper Name Role Phone Cholo Franks MD Primary Care Provider +1- [phone] Reason for Visit * Reason Comments eRx-Medication Refill Encounter Details Date Type Department Care Team Description 03/17/[address] [facility] [address] [facility] [address] Cholo Franks MD [address] [place] [address] Allergies Active Allergy Reactions Severity Noted Date Comments Atenolol 06/15/1999 stomach pain Lisinopril 06/27/2010 hyperkalemia Sulfa Antibiotics 2020 Sulfamethoxazole 10/19/2006 Tingling, itch, s.o.b. documented as of this encounter (statuses as of 03/19/2023) Medications Medication Sig Dispensed Refills Start Date [...] daily. 30 Tab 11 05/30/2021 Active Nystatin 021601 UNIT/GM External Powder (Nystop) Apply topically to [...] 08/24/2022 Active Vitamin D (Ergocalciferol) 1.25 MG (51535 UT) Oral Capsule (Drisdol)Indication s:Vitamin D deficiency [...] Pain, Severe. 90 Tablet 0 03/06/2023 Active Furosemide 20 MG Oral Tablet (Lasix) TAKE BY MOUTH 1 TABLET ONCE A DAY ON SUNDAY, SUNDAY, AND SUNDAY ONLY . 15 Tablet 1 03/19/2023 Active Furosemide 20 MG Oral Tablet (Lasix) Take by mouth 1 Tablet once a day on Sunday, Sunday, and Sunday only . 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 - 03/19/2023 10:32 AM EDT Signed Prescriptions: Disp Refills Furosemide 20 MG Oral Tablet (Lasix) 15 Tab*1 Sig: TAKE BY MOUTH1 TABLET ONCE A DAY ON SUNDAY, SUNDAY, AND SUNDAY ONLY .Authorizing Provider: CHOLO FRANKS User: ZAIN HERNANDEZ Electronically signed by Zain Hernandez [facility] at 03/19/2023 10:32 AM EDT documented in this encounter Plan of Treatment Upcoming Encounters Date Type Specialty Care Team Description 04/02/2023 Office Visit Ophthalmology Isaiah Valle DO [address] [place] [address] 05/14/2023 Office Visit Podiatry Adriana Meza DPM [address] [place] [address] 06/11/2023 Imaging Radiology Scheduled Procedures Name Priority [...] Ratio 07/21/2023 07/21/2022 CKD HGB USE SMARTSET 01777 07/21/202307/21, 07/21/2022, 05/04/2021, Additional history exists CKD PHOS USE SMARTSET 04443 07/21/2023 11/0 12/2021, 05/03/2021, 05/02/2021, Additional history [...] and were consensually agreed upon. Care Teams Rod Buster Helper Relationship Specialty Start Date End Date Cholo Franks MD [address] [place] [address] PCP - General 07/02/01 documented as of this encounter
--- OUTSIDE RECORDS SUMMARY | 2023-08-05 10:03 | External Medical Summary | Summary of Care ---
Author Name Unknown Organization [facility] Address [address] [facility] [address] Phone [phone] Care Team Providers Care Hat Band Attacher Name Role Phone Klaus Douglas MD Primary Care Provider +1- [phone] Reason for Visit * Reason Comments eRx-Medication Refill Encounter Details Date Type Department Care Team Description 03/17/2023 Refill Gastroenterology, [facility] [address] [place] [address] Елена Matson CRNP [address] [facility] [place] [address] Allergies Active Allergy Reactions Severity Noted Date [...] daily. 30 Tab 11 05/30/2021 Active Nystatin 193923 UNIT/GM External Powder (Nystop) Apply topically to [...] 08/24/2022 Active Vitamin D (Ergocalciferol) 1.25 MG (52217 UT) Oral Capsule (Drisdol)Indication s:Vitamin D deficiency TAKE 1 CAPSULE BY MOUTH ONE TIME PER WEEK 12 Capsule 3 10/24/2022 Active Zolpidem Tartrate 5 MG Oral Tablet (Ambien) Take 1 Tablet by mouth at bedtime as needed for Sleep. 90 Tablet 0 12/20/2022 Active FLUoxetine HCl 10 MG Oral Capsule [...] ONLY . 15 Tablet 1 03/19/2023 Active Omeprazole 40 MG Oral Capsule Delayed Release (PriLOSEC) Take 1 Capsule by mouth in the morning. 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 Authorizing Provider: ЕЛЕНА MATSON * Telephone Encounter - Kaiden Thompson RN - 03/19/2023 2:04 PM EDTPending Prescriptions: Disp Refills Pantoprazole Sodium 20 MG Oral Tablet Leigh*180 Ta*1 Sig: Take 1 Tablet by mouth in the morning and 1 Tablet in the evening. * Telephone Encounter - Kaiden Thompson RN - 03/19/2023 2:03 PM EDT Per previous OV pt to continue Pantoprazole 20mg BID. Pended script. * Telephone Encounter - Linda Cuba CPhT - 03/19/2023 12:39 PM EDTPending Prescriptions: Disp Refills Pantoprazole Sodium 20 MG Oral Tablet Leigh*90 Tab*1 Sig: TAKE 1 TABLET BY MOUTH EVERY DAY IN THE MORNING * Telephone Encounter - Linda Cuba CPhT - 03/19/2023 12:38 PM EDT Pharmacy requesting refills for pantoprazole. Upon chart review, medication is listed as discontinued, with discontinuation reason as "refill". Please advise if you wish to continue this therapy for the patient. Thanks, Linda Cuba CPhT, Tech II [facility] ([facility]) (formerly Telepharmacy) [address] [facility] [place] [address] documented in this encounter Plan of Treatment Upcoming Encounters Date Type Specialty Care Team Description 04/02/2023 Office Visit Ophthalmology Isaiah Valle DO [address] [place] [address] 05/14/2023 Office Visit Podiatry Adriana Meza DPM [address] [place] [address] 06/11/2023 Imaging Radiology Scheduled Procedures Name Priority [...] Ratio 07/21/2023 07/21/2022 CKD HGB USE SMARTSET 72323 07/21/202307/21, 07/21/2022, 05/04/2021, Additional history exists CKD PHOS USE SMARTSET 30251 07/21/2023 11/12/2021, 05/03/2021, 05/02/2021, Additional history exists Depression Screening, [...] and were consensually agreed upon. Care Teams Hat Band Attacher Relationship Specialty Start Date End Date Klaus Douglas MD [address] [place] [address] PCP - General 07/02/01 documented as of this encounter
--- OUTSIDE RECORDS SUMMARY | 2023-08-05 10:03 | External Medical Summary | Summary of Care ---
Author Name Unknown Organization [facility] Address [address] [place] [address] Phone [phone] Care Team Providers Care Idea Worker Name Role Phone Klaus Douglas MD Primary Care Provider +1- [phone] Encounter Details Date Type Department Care Team [...] daily. 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 Care Teams Idea Worker Relationship Specialty Start Date End Date Klaus Douglas MD [address] [place] [address] PCP - General 07/02/01 documented as of this encounter
--- OUTSIDE RECORDS SUMMARY | 2023-08-05 10:03 | External Medical Summary | Summary of Care ---
Author Name Unknown Organization [facility] Address [address] [place] [address] Phone [phone] Care Team Providers Care Stopboard Assembler Name Role Phone Cholo Franks MD Primary Care Provider +1- [phone] Reason for Visit * Reason Onset Date Comments Medication Refill 03/19/2023 Encounter Details Date Type Department Care Team Description 03/19/[address] [facility] [address] [place] [address] Cholo Franks MD [address] [place] [address] Allergies Active Allergy Reactions Severity Noted Date Comments Atenolol 06/15/1999 stomach pain Lisinopril 06/27/2010 hyperkalemia Sulfa Antibiotics 2020 Sulfamethoxazole 10/19/2006 Tingling, itch, s.o.b. documented as of this encounter (statuses as of 03/21/2023) Medications Medication Sig Dispensed Refills Start Date [...] daily. 30 Tab 11 05/30/2021 Active Nystatin 260145 UNIT/GM External Powder (Nystop) Apply topically to [...] 08/24/2022 Active Vitamin D (Ergocalciferol) 1.25 MG (22199 UT) Oral Capsule (Drisdol)Indications :Vitamin D deficiency [...] for Sleep. 90 Tablet 0 03/21/2023 Active Zolpidem Tartrate 5 MG Oral Tablet (Ambien) Take 1 Tablet by mouth at bedtime as needed for Sleep. 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 07/26/2017 Osteoarthritis [...] as of this encounter (statuses as of 03/21/2023) Resolved Problems Problem Noted Date Resolved Date [...] as of this encounter (statuses as of 03/21/2023) Immunizations Name Administration Dates Next Due COVID-19 mRNA, LNP-s, No Pre serve, 2-Dose Series ([employer]) 08/24/2021,11/26/2020,11/05/2020 Covid-19, Mrna, Lnp-s, Pf, B ivalent, 30 Mcg, IM, 12 yrs and above ([employer]) 09/28/2022 Pneumococcal Conjugate Vacc, 13 Valent (Prevnar) [...] Telephone Encounter - Cholo Franks MD - 03/21/2023 2:11 PM EDTSigned Prescriptions: Disp Refills Zolpidem Tartrate 5 MG Oral Tablet (Ambien)90 Tab*0 Sig: Take 1 Tablet by mouth at bedtime as needed for Sleep.Authorizing Provider: CHOLO FRANKS * Telephone Encounter - [facility] - 03/21/2023 10:06 AM EDTPending Prescriptions: Disp Refills Zolpidem Tartrate 5 MG Oral Tablet (Ambien)90 Tab*0 Sig: Take 1 Tablet by mouth at bedtime as needed for Sleep. Electronically signed by [facility] at 03/21/2023 10:06 AM EDT * Telephone Encounter - [facility] - 03/21/2023 10:05 AM EDT I have reviewed the patients controlled substance dispensing history in the Prescription Drug Monitoring Program in compliance with the [facility] regulations before prescribing a controlled substance. PDMP checked on 03/21/2023. Pending Prescriptions: Disp Refills Zolpidem Tartrate 5 MG Oral Tablet (Ambie*90 Tab*0 Sig: Take 1 Tablet by mouth at bedtime as needed for Sleep. Last Visit: 09/20/2022 (in office), Visit date not found (telemedicine) Next Visit: Visit date not found Date medication was last filled: 12-20-22 Date medication is due for refill: 03-18-23 Pharmacy: [id number] [facility] Is this request for a controlled [...] Results Review. Please approve if appropriate. Thanks, Fiona Lebron.Ph. Clinical Pharmacist [facility] [phone] ext [phone] 03/21/2023,10:05 AM Electronically signed by [facility] at 03/21/2023 10:06 AM EDT documented in this encounter Plan of Treatment Upcoming Encounters Date Type Specialty Care Team Description 04/02/2023 Office Visit Ophthalmology Isaiah Valle DO [address] [place] [address] 05/14/2023 Office Visit Podiatry Adriana Meza DPM [address] [place] [address] 06/11/2023 Imaging Radiology Scheduled Procedures Name Priority [...] Ratio 07/21/2023 07/21/2022 CKD HGB USE SMARTSET 90132 07/21/202307/21, 07/21/2022, 05/04/2021, Additional history exists CKD PHOS USE SMARTSET 63337 07/21/2023 11/0 12/2021, 05/03/2021, 05/02/2021, Additional history [...] and were consensually agreed upon. Care Teams Stopboard Assembler Relationship Specialty Start Date End Date Cholo Franks MD [facility] [place] [address] PCP - General 07/02/01 documented as of this encounter
--- OUTSIDE RECORDS SUMMARY | 2023-08-05 10:03 | External Medical Summary | Summary of Care ---
Author Name Unknown Organization [facility] Address [address] [place] [address] Phone [phone] Care Team Providers Care Cartographic Engineer Name Role Phone Klaus Douglas MD Primary Care Provider +1- [phone] Encounter Details Date Type Department Care Team [...] daily. 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 Care Teams Cartographic Engineer Relationship Specialty Start Date End Date Klaus Douglas MD [address] [place] [address] PCP - General 07/02/01 documented as of this encounter
--- OUTSIDE RECORDS SUMMARY | 2023-08-05 10:03 | External Medical Summary | Summary of Care ---
Author Name Unknown Organization [facility] Address [address] [place] [address] Phone [phone] Care Team Providers Care Back Up Worker Name Role Phone Klaus Douglas MD Primary Care Provider +1- [phone] Reason for Visit * Reason Comments Follow Up 10-[address] OD Avastin * Precert (Routine) - Authorized Specialty Diagnoses / Procedures Referred By Renae alcala Referred To Contact Ophthalmology Diagnoses Exudative age-related macular degeneration of right eye with active choroidal neovascularization (HCC) Procedures INJECTION OF EYE DRUG INECTION,BEVACIZUMAB, 10 MG Isaiah Valle DO [address] [place] [address] Referral ID Status Reason Start Date Expiration Date V isits Requested Visits Authorized [id number] Authorized Precert 2020 09/16/2099 99 99 Encounter Details Date Type Department Care Team Description 04/02/2023 Office Visit Ophthalmology, [facility] [address] [place] [address] Isaiah Valle DO [address] [place] [address] Exudative age-related macular degeneration of right eye [...] daily. 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 Isaaih Valle DO, performed the procedure in its [...] Isaiah Valle DO Avastin 1.25mg lot # [id number] Exp. Date: 05/22/23 * Brandy Stuart RN [...] Meza DPM [address] [place] [address] 06/11/2023 Imaging Radiology Scheduled Procedures Name Priority [...] Ratio 07/21/2023 07/21/2022 CKD HGB USE SMARTSET 30062 07/21/202307/21, 07/21/2022, 05/04/2021, Additional history exists CKD PHOS USE SMARTSET 70302 07/21/2023 11/12/2021, 05/03/2021, 05/02/2021, Additional history exists [...] 1.25 mg, Intravitreal, PRN Other, Starting on Sun10/30/22 at 1121, Until Sun10/30/23 at 1120, For 365 days Given 04/02/2023 [...] and were consensually agreed upon. Care Teams Back Up Worker Relationship Specialty Start Date End Date Klaus Douglas MD [address] [place] [address] PCP - General 07/02/01 documented as of this encounter
--- OUTSIDE RECORDS SUMMARY | 2023-08-05 10:04 | External Medical Summary | Summary of Care ---
Author Name Unknown Organization [facility] Address [address] [facility] [place] [address] Phone [phone] Care Team Providers Care Web Design Instructor Name Role Phone Klaus Douglas MD Primary Care Provider +1- [phone] Reason for Visit * Reason Comments Follow Up Nail care Encounter Details Date Type Department Care Team Description 02/08/2023 Office Visit Podiatry [facility] [address] [place] [address] Adriana Meza DPM [address] [facility] [place] [address] Onychomycosis*; Callus; Stage 3 chronic kidney disease, unspecified whether stage 3a or 3b CKD (HCC); Pain in toes of both feet Allergies Active Allergy Reactions Severity Noted Date Comments Atenolol 06/15/1999 stomach pain Lisinopril 06/27/2010 hyperkalemia Sulfa Antibiotics 2020 Sulfamethoxazole 10/19/2006 Tingling, itch, s.o.b. documented as of this encounter (statuses as of 02/08/2023) Medications Medication Sig Dispensed Refills Start Date [...] daily. 30 Tab 11 05/30/2021 Active Nystatin 938565 UNIT/GM External Powder (Nystop) Apply topically to [...] 08/24/2022 Active Vitamin D (Ergocalciferol) 1.25 MG (02718 UT) Oral Capsule (Drisdol)Indications: Vitamin D deficiency [...] or Pain, Severe. 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 07/26/2017 [...] as of this encounter (statuses as of 02/08/2023) Resolved Problems Problem Noted Date Resolved Date [...] as of this encounter (statuses as of 02/08/2023) Immunizations Name Administration Dates Next Due COVID-19 mRNA, LNP-s, No Pre serve, 2-Dose Series ([employer]) 08/24/2021,11/26/2020,11/05/2020 Covid-19, Mrna, Lnp-s, Pf, B ivalent Booster, 30 Mcg, IM, 12 yrs and above [...] this encounter Progress Notes * Adriana Meza, ELISHA - 02/08/2023 9:33 AM EDT Podiatry Established Patient Note [facility] Name: Makenna Harris : 1935 Date: 02/08/2023 CHIEF COMPLAINT: Nail Care HISTORY OF PRESENT [...] Date Aortic valve stenosis 07/14/2015 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 LAST PFT -01/05/10 Dyslipidemia, goal LDL below 100 07/14/2015 Dyslipidemia, goal to be determined Esophageal reflux 07/02/2001 External hemorrhoids with other complication Exudative macular degeneration ([facility]) 11/09/2015 Generalized osteoarthritis right knee HEMORRHOIDS, EXTERNAL W/O COMPLICATIONS 07/02/2001 HTN, goal below 140/90 07/02/2001 HTN, goal to be determined Kidney disease, chronic, stage III (GFR 30-59 ml/min) ([facility]) 11/10/2013 Per CKD protocol #1 Obesity, Class [...] by Juan David Gates MD at ENDOSCOPY [facility] CORONARY ANGIOGRAPHY W/LEFT HEART CATH Right 01/27/2019 CORONARY ANGIOGRAPHY W/LEFT HEART CATH performed [place] Jackie Pastrana [place] [facility] [place]ONARY ANGIOGRAPHY W/RIGHT+LEFT CATH Right 07/10/2017 CORONARY ANGIOGRAPHY W/RIGHT+LEFT CATH performed by Noel Bearden MD at [facility] [place] HEMILAMINECTOMY, CERVICAL/LUMBAR, EA. ADD'L 05/2002 decompression/fusion L3-5 [...] 01/16/2023 # [address] Valle LAPAROSCOPY; CHOLECYSTECTOMY 03/16/2014 laparoscopic cholecystectomy [facility] 03/16/14 MISCELLANEOUS ORDER ([facility] ONLY) Left 08/23/2015 EYLEA CONSENT OS SIGNED; DR VALLE MISCELLANEOUS ORDER ([facility] ONLY) Left 10/18/2016 EYLEA CONSENT OS SIGNED; DR VALLE (GOOD THRU 10/18/17) MISCELLANEOUS ORDER ([facility] ONLY) ACT 112 SIGNED 06/22/20 DR. VALLE [...] by Noel Bearden MD [place] [facility] [place] REPLACE AORTIC VALVE, PERCUTANEOUS FEMORAL 05/15/2019 REPLACE AORTIC VALVE, PERCUTANEOUS FEMORAL performed by Addy Prieto MD [place] [facility] [place] STRESS ECHO (DOBUTAMINE) 10/2004 No stress-induced changes [...] file Gets together: Not on file Attends holiness service: Not on file Active member of [...] Inhalation Aerosol Solution Inhale 2 Puffs by mouthevery 6 hours as needed for Shortness of Breath or Wheezing. Acetaminophen 325 MG Oral Tablet (Tylenol) Take 3 Tabs by mouth every 8 hours. 30 Tab 0 Polyethylene Glycol 3350 17 GM Oral Packet (Miralax) Take 1 Packet by mouth daily. 14 Each 0 Aspirin EC 81 MG Oral Tablet Delayed Release Take 1 Tab by mouth daily. 30 Tab 011 Nystatin 594656 UNIT/GM External Powder (Nystop) Apply topically to affected area 3 times a day. Apply to affected area of right lower abdomen for up to 4 weeks. 45 g 0 Vwloqfztoam-Vwaerrzxs-Xqkngh 100-62.5-25 MCG/INH Aerosol Powder Breath Activated (TRELEGY ellipta) Inhale 1 Puff by mouth in the morning. Meclizine HCl 25 MG Oral Tablet (Antivert) Take 1 Tablet by mouth 3 times a day as needed. Mirtazapine 15 MG Oral Tablet (Remeron) Take 1 Tablet by mouth at bedtime. Furosemide 20 MG Oral Tablet (Lasix) Take by mouth 1 Tablet once a day on Sunday, Sunday, and Sunday only . 40 Tablet 3 Isosorbide Dinitrate 20 MG Oral Tablet (Isordil) Take by mouth 1 Tablet in the morning AND 1 Tablet at noon AND 1 Tablet before bedtime. at 8am, 12 noon and 4pm.. 270 Tablet 3 Metoprolol Succinate ER 25 MG Oral Tablet Extended Release 24 Hour (toPROL XL) Take by mouth 0.5 Tablets in the morning. 45 Tablet 3 Simvastatin 20 MG Oral Tablet (Zocor) Take by mouth 1 Tablet in the evening. 90 Tablet 3 Amoxicillin 500 MG Oral Capsule (Amoxil) 4 caps 1 hour prior to dental exam 12 Capsule 3 amLODIPine Besylate 10 MG Oral Tablet (Norvasc) Take by mouth 0.5 Tablets in the morning. 45 Tablet 3 Ondansetron 4 MG Oral Tablet Disintegrating (Zofran) TAKE 1-2 TABLETS BY MOUTH EVERY 8 HOURS ASNEEDED FOR NAUSEA 30 Tablet 3 Vitamin D (Ergocalciferol) 1.25 MG (01149 UT) Oral Capsule (Drisdol) TAKE 1 CAPSULE BY MOUTH ONE TIME PER WEEK 12 Capsule 3 Zolpidem Tartrate 5 MG Oral Tablet (Ambien) Take 1 Tablet by mouth at bedtime as needed for Sleep. 90 Tablet 0 Omeprazole 40 MG Oral Capsule Delayed Release ([employer]) Take 1 Capsule by mouth in the morning. 90 Capsule 3 FLUoxetine HCl 10 MG Oral Capsule (PROzac) [...] PRN Isaiah Valle, DO 1.5 mg at 01/16/23 1016 bevaCIZumab (Avastin) inj 1.25 mg 1.25 mg Intravitreal PRN Isaiah Valle, DO 1.25 mg at 01/16/23 1017 ALLERGIES: Review of patient's allergies indicates: Allergen [...] Nursing Notes * Gladys Tan LPN - 02/08/2023 9:24 AM EDT Pt presents for routine nail care, states has pain at R great toe. documented in this encounter Plan of Treatment Upcoming Encounters Date Type Specialty Care Team Description 04/02/2023 Office Visit Ophthalmology Isaiah Valle DO [address] [place] [address] 05/14/2023 Office Visit Podiatry Adriana Meza DPM [address] [place] [address] 06/11/2023 Imaging Radiology Scheduled Procedures Name Priority Associated Diagnoses Date/Ti me ESOPHAGOGASTRODUODENOSCOPY ( EGD), FLEXIBLE, TRANSORAL, DIAGNOSTIC Recall Esophageal dysphagia Health Maintenance Due Date Last Done Comments Alpha-1 Antitrypsin 1953 Zoster Vaccines (2 of 2) 07/25/2013 05/30/2013, 05/18 *BISPHONATE OR OTHER ACCEPTABLE MEDICATION NEEDED FOR OSTEOPOROSIS (REFER TO SMARTSET #1146) 05/20/2019 Albumin/Creatinine Ratio 07/21/2023 07/21/2022 CKD HGB USE SMARTSET 16612 07/21/202307/21, 07/21/2022, 05/04/2021, Additional history exists CKD PHOS USE SMARTSET 11358 07/21/2023 11/0 12/2021, 05/03/2021, 05/02/2021, Additional history [...] and were consensually agreed upon. Care Teams Web Design Instructor Relationship Specialty Start Date End Date Klaus Douglas MD [address] [place] [address] PCP - General 07/02/01 documented as of this encounter
--- OUTSIDE RECORDS SUMMARY | 2023-08-05 10:04 | External Medical Summary | Continuity of Care Document ---
Author Name Unknown Organization [id number] Address [address] [place] [id number] Care Team Providers Care Adult Psychiatrist Name Role Phone Klaus Douglas Primary Care Physician [phone] Encounter [facility] [id number] Date(s): 02/23/23 - 02/23/23 [facility] [address] [facility] [address] [facility] [address] [place] [id number] Encounter Diagnosis SI (sacroiliac) joint dysfunction(Discharge Diagnosis) - 02/23/23 Discharge Disposition: Home or Self Care Attending Physician: NIR Pappas Cory D Allergies, Adverse Reactions, Alerts Substance Reaction Severity Status atenolol Active sulfa drugs Active Assessment and Plan Extracted from: Title:Clinical Document Author:NIR Pappas C ory D Date:02/23/23 OUTPATIENT NOTE Name: IRENA EUGEEN Patient Number:[id number] : 1935 Date of Service: 02/23/2023 Chief complaint: Right hip pain HPI: This 87-year-old female presents today for evaluation of her right SI joint. The patient states she is having hip pain, but actually points to her right SI joint. She denies any pain in the anterior crease of the hip nor over the IT band. She denies any pain laterally. Pain is worse with activity. It is affecting how she walks. She is using a cane. She wants to be sure that there is nothing wrong with her implant. She has a history of bilateral total hip implants, with the left requiring a constrained liner. No new trauma. She denies any falls. No numbness or tingling. No specific onset. It has been ongoing for about 3 months. No treatment yet. Physical exam General: Well-developed, well-nourished, elderly female, in no acute distress. Sitting in a chair. Alert and oriented. Skin: Warm and dry with good turgor. No rashes. No ecchymosis or edema. Musculoskeletal: Evaluation of the pelvis and right hip reveals no obvious deformity. She has supple motion for flexion as well as rotation of the right hip. This does not cause any groin or trochanteric pain. She does note discomfort in the SI joint with sitting. She has focal pain with palpation over the SI joint itself. Mild discomfort in the gluteal musculature. No pain with palpation over the lumbar spine, including the vertebrae and paraspinal musculature. No pain with palpation over the left SI joint or left gluteal musculature. Ambulating today with a slightly antalgic gait using her cane. Neurologic: Gross sensation is intact across the lower extremities by soft touch. Peripheral pulses are 2+. Data: Radiographic imaging obtained today of the pelvis and right hip was interpreted by me and read by radiology. She has a well-seated implant without evidence of loosening. There is retained hardware in her lumbar spine. Degenerative sclerosis and partial fusion are noted in her SI joints. No evidence of fracture. Impression: Right SI joint dysfunction Plan: The patient was educated regarding today's findings as well as her . Conservative care measures were discussed. I would like her to try PT. Patient is in agreement. Prescription was provided. She may use topical Voltaren gel over the SI joint. She may also use moist heat or ice as comfort dictates. She will need to be careful about stretching due to the total hip arthroplasties. Her range of motion will be limited. Follow-up on an as-needed basis. Call with any other concerns. This dictation has been completed using cheerapp text voice recognition software. Grammatical errors, omissions, insertions, and misspellings may be present due to the limitations of the software. Medications acetaminophen-HYDROcodone 325 mg-5 mg oral tablet TAKE 1 OR 2 TABLETS BY MOUTH EVERY 6 HOURS NEEDED FOR MILD PAIN Start Date: 05/16/21 Status: Ordered amLODIPine 10 mg oral tablet TAKE HALF A TABLET BY MOUTH DAILY Start Date: 05/26/19 Status: Ordered amoxicillin 500 mg oral capsule Start: 05/26/19 8:43:00 EDT, 4 cap, PO, As indicated, Disp# 12 cap, Refills: 3, one hour before dental and other procedures as directed, Pharmacy: [facility]/pharmacy #[id number] Start Date: 05/26/19 Status: Ordered Anoro Ellipta 62.5 mcg-25 mcg/inh inhalation powder Start: 05/16/21 13:02:00 EDT Start Date: 05/16/21 Status: Ordered Combivent Respimat 20 mcg-100 mcg/inh inhalation aerosol INHALE 1 PUFF BY MOUTH EVERY 4 HOURS NEEDED Start Date: 05/26/19 Status: Ordered ergocalciferol 1.25 mg (50,000 intl units) oral capsule TAKE 1 CAPSULE BY MOUTH ONCE A WEEK Start Date: 05/16/21 Status: Ordered isosorbide dinitrate 20 mg oral tablet Start: 05/26/19 8:30:00 EDT, 1 tab, PO, q6h Start Date: 05/26/19 Status: Ordered Metoprolol Succinate ER 25 mg oral tablet, extended release TAKE 0.5 TABS BY MOUTH DAILY. Start Date: 05/26/19 Status: Ordered ondansetron 4 mg oral tablet, disintegrating Start: 05/16/21 13:05:00 EDT Start Date: 05/16/21 Status: Ordered Mental Status 02/23/23 Barriers to Learning one year None evide nt Mandatory Health Literacy Documentation Yes Health Literacy Communication Barriers N ever Primary Language Samoan Problem List Condition Confirmation Course Effective Dates Status H ealth Status Informant Arthritis Confirmed Active Bursitis of left hip Confirmed Active Depression 1 Confirmed Active GERD Confirmed Active S/P total hip arthroplasty Confirmed Active Left hip pain Confirmed Active Hip replacement 2 Confirmed Active HTN (hypertension) Confirmed Active Hyperlipidemia Confirmed Active Left knee pain Confirmed Active LBP (low back pain) Confirmed Active Primary osteoarthritis of left hip Confirmed Active Osteoarthritis of left hip Confirmed Active 1anxiety 2Right hip/DJD Diagnosis Diagnosis Type Effective Dates Health Status Clinical Service Informant SI (sacroiliac) joint dysfunction Discharge Diagnosis 02/23/23 Procedures Procedure Date Related Diagnosis Body Site Status B/L Cataract Sx 2009 Completed incarcerated hernia 2007 Compl eted Right LAMONT 2005 Completed Back Sx 2001 Completed Right CTR 1991 Completed Hysterectomy 1972 Completed Hemorrhoids Completed Social History Social History Type Response Smoking Status Never smoked cigaret isidra Sex Female Outpatient Note * NIR Pappas, Goran D: PERFORM Event Display: .Outpt Note Authored Date: [id number] OUTPATIENT NOTE Name: IRENA EUGENE Patient Number:1 [id number] : 1935 Date of Service: 02/23/2023 Chief complaint: Right hip pain HPI: This 87-year-old female presents today for evaluation of her right SI joint. The patient states she is having hip pain, but actually points to her right SI joint. She denies any pain in the anterior crease of the hip nor over the IT band. She denies any pain laterally. Pain is worse with activity. It is affecting how she walks. She is using a cane. She wants to be sure that there is nothing wrong with her implant. She has a history of bilateral total hip implants, with the left requiring aconstrained liner. No new trauma. She denies any falls. No numbness or tingling. No specific onset.It has been ongoing for about 3 months. No treatment yet. Physical exam General: Well-developed, well-nourished, elderly female, in no acute distress. Sitting in a chair. Alert and oriented. Skin: Warm and dry with good turgor. No rashes. No ecchymosis or edema. Musculoskeletal: Evaluation of the pelvis and right hip reveals no obvious deformity. She has supple motion for flexion as well as rotation of the right hip. This does not cause any groin or trochanteric pain. She does note discomfort in the SI joint with sitting. She has focal pain with palpation over the SI joint itself. Mild discomfort in the gluteal musculature. No pain with palpation over the lumbar spine, including the vertebrae and paraspinal musculature. No pain with palpation over the left SI joint or left gluteal musculature. Ambulating today with a slightly antalgic gait using her cane. Neurologic: Gross sensation is intact across the lower extremities by soft touch. Peripheral pulsesare 2+. Data: Radiographic imaging obtained today of the pelvis and right hip was interpreted by me and read by radiology. She has a well-seated implant without evidence of loosening. There is retained hardware in her lumbar spine. Degenerative sclerosis and partial fusion are noted in her SI joints. No justin dence of fracture. Impression: Right SI joint dysfunction Plan: The patient was educated regarding today's findings as well as her . Conservative caremeasures were discussed. I would like her to try PT. Patient is in agreement. Prescription was provided. She may use topical Voltaren gel over the SI joint. She may also use moist heat or ice as comfort dictates. She will need to be careful about stretching due to the total hip arthroplasties. Her range of motion will be limited. Follow-up on an as-needed basis. Call with any other concerns. This dictation has been completed using cheerapp text voice recognition software. Grammatical errors, omissions, insertions, and misspellings may be present due to the limitations of the software. Electronic Signature on File Electronically Reviewed/Signed by: Goran Pappas PA-C Author Signature Dt/Tm:02/23/2023 03:52 PM Division of Sports Medicine Electronically Reviewed/Signed by: Darius Matson MD Cosigner Signature Dt/Tm: 02/24/2023 06:53 AM Applications Architect for Clinical Affairs, [facility] Professor in Orthopaedics Drying Tumbler Operator, [facility] CDS Patient Care team information Care Team Personnel Name: MD Stella, Klaus Jaimes Position: Referring DIRECT Member Role: Primary Care Provider Address: Address: [address] [place] [id number] Care Team Related Persons Name: ESPERANZA EUGENE Address: [address] [id number] Name: RASHARD NEWMAN
--- OUTSIDE RECORDS SUMMARY | 2023-08-05 10:04 | External Medical Summary | Summary of Care ---
Author Name Unknown Organization [facility] Address [address] [place] [address] Phone [phone] Care Team Providers Care Director Advanced Name Role Phone Klaus Douglas MD Primary Care Provider [phone] Reason for Visit * Reason Onset Date Comments Referral 02/05/2023 Encounter Details Date Type Department Care Team Description 02/05/2023 Telephone [facility] [address] [place] [address] Klaus Douglas MD [address] [place] [address] Referral Allergies Active Allergy Reactions Severity Noted Date Comments Atenolol 06/15/1999 stomach pain Lisinopril 06/27/2010 hyperkalemia Sulfa Antibiotics 2020 Sulfamethoxazole 10/19/2006 Tingling, itch, s.o.b. documented as of this encounter (statuses as of 02/28/2023) Medications Medication Sig Dispensed Refills Start Date [...] daily. 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 07/26/2017 Osteoarthritis [...] as of this encounter (statuses as of 02/28/2023) Resolved Problems Problem Noted Date Resolved Date [...] as of this encounter (statuses as of 02/28/2023) Immunizations Name Administration Dates Next Due COVID-19 mRNA, LNP-s, No Pre serve, 2-Dose Series ([employer]) 08/24/2021,11/26/2020,11/05/2020 Covid-19, Mrna, Lnp-s, Pf, B ivalent, 30 Mcg, IM, 12 yrs and above ([employer]) 09/28/2022 Pneumococcal Conjugate Vacc, 13 Valent (Prevnar) [...] encounter Miscellaneous Notes * Telephone Encounter - STEFANY Torrez - 02/05/2023 8:55 AM EDT Due to Medicare guidelines for Podiatry Routine Footcare & Mycotic Nail visits, we will need documented medical necessity for this patient's upcoming appointment on 02/08/2023 . A new referral is required every 6 months and must include documented medical necessity for Medicare to pay for these services. Please assist with placing a new referral within Epic. Please see the below link that will outline the appropriate/approved DX codes. Article - Billing and Coding: Routine Foot Care (M65064) (cms.gov) Thank you! Podiatry Scheduling documented in this encounter Plan of Treatment Upcoming Encounters Date Type Specialty Care Team Description 04/02/2023 Office Visit Ophthalmology Iasiah Valle, [address] [place] [address] 05/14/2023 Office Visit Podiatry Adriana Meza DPM [address] [place] [address] 06/11/2023 Imaging Radiology Scheduled Procedures Name Priority Associated Diagnoses Date/Ti me ESOPHAGOGASTRODUODENOSCOPY ( EGD), FLEXIBLE, TRANSORAL, DIAGNOSTIC Recall Esophageal dysphagia Health Maintenance Due Date Last Done Comments Alpha-1 Antitrypsin 1953 Zoster Vaccines (2 of 2) 07/25/2013 05/30/2013, 05/18 *BISPHONATE OR OTHER ACCEPTABLE MEDICATION NEEDED FOR OSTEOPOROSIS (REFER TO SMARTSET #1146) 05/20/2019 Albumin/Creatinine Ratio 07/21/2023 07/21/2022 CKD HGB USE SMARTSET 61857 07/21/202307/21, 07/21/2022, 05/04/2021, Additional history exists CKD PHOS USE SMARTSET 21085 07/21/202312/2021, 05/03/2021, 05/02/2021, Additional history exists Depression [...] were consensually agreed upon. Care Teams Director Advanced Relationship Specialty Start Date End Date Klaus Douglas MD [address] [place] [address] PCP - General 07/02/01 documented as of this encounter
[2023-08-05] MEDS ORDERED: NON-FORMULARY MEDICATION (Albuterol Sulfate 0.63 mg/3 mL Solution For Nebulization) INH PRN (14:00)
[2023-08-05] MEDS ORDERED: HEPARIN SOD 5,000 UNIT/0.5 ML VIAL SQ SCH (14:00)
[2023-08-05] MEDS ORDERED: MECLIZINE HCL 25 MG TAB PO PRN (14:13)
[2023-08-05] MEDS: LACTATED RINGER'S 1,000 ML IV SCH (15:27)
[2023-08-05] MEDS: PIPERACILLIN/TAZOBACTAM 4.5 GM in DEXTROSE 5% MINI-B 100 ML IV SCH ×2 (15:28→21:40)
[2023-08-05] MEDS ORDERED: METOPROLOL TARTRATE 1 MG/ML VIAL IV ONE ×2 (16:30→16:37)
[2023-08-05] MEDS ORDERED: METOPROLOL TARTRATE 1 MG/ML VIAL IV PRN (16:30)
[2023-08-05] MEDS ORDERED: Heparin IV Adult Wt-Based Low-Dose *NO* Bolus Protocol IV SCH (16:45)
[2023-08-05] MEDS ORDERED: POTASSIUM CHLORIDE CRTAB 20 MEQ TABCR PO STA (16:45)
[2023-08-05] MEDS ORDERED: STAT IV Infusion **Titration per Protocol STA (16:47)
[2023-08-05] MEDS: dilTIAZem HCL 125 MG in DEXTROSE 5% 100 ML IV SCH (17:02)
[2023-08-05] MEDS: MAGNESIUM SULFATE / D5W 1 GM/100 ML BAG IV SCH ×2 (17:04→19:20)
[2023-08-05] MEDS: HEPARIN SODIUM/DEXTROSE 25,000 UNITS/500 ML BAG IV SCH (17:19)
[2023-08-05] MEDS: FLUoxetine HCL 10 MG CAP PO SCH (17:33)
[2023-08-05] MEDS: ISOSORBIDE DINITRATE 20 MG TAB PO SCH ×2 (17:34→21:48)
[2023-08-05] MEDS: METOPROLOL SUCC 25MG EXT REL TAB PO SCH (17:34)
[2023-08-05] MEDS: ASPIRIN 81 MG ECTAB PO SCH (17:34)
[2023-08-05] MEDS: amLODIPine BESYLATE 5 MG TAB PO SCH (17:35)
[2023-08-05] MEDS: UMECLIDINIUM/VILANTEROL 62.5/25MCG 7 PUFFS/INHALER INH SCH (17:38)
[2023-08-05] MEDS: FLUTICASONE FUROATE 100MCG 14 PUFFS/INHALER INH SCH (17:40)
[2023-08-05 20:46] LABS: Partial Thromboplastin Ratio 1.3; Partial Thromboplastin Time 37.3 Seconds (21.0-31.0)
[2023-08-05] MEDS ORDERED: METOPROLOL TARTRATE 25 MG TAB PO SCH (21:00)
[2023-08-05] MEDS: MELATONIN 3 MG TAB PO PRN (21:43)
[2023-08-05] MEDS: MIRTAZAPINE SOLTAB 15 MG PO SCH (21:46)
[2023-08-05] MEDS: PANTOprazole 40 MG TAB PO SCH (21:47)
[2023-08-05] MEDS: SIMVASTATIN 20 MG TAB PO SCH (21:48)
[2023-08-06 00:27] LABS: Partial Thromboplastin Ratio 1.9
[2023-08-06 00:40] LABS: Partial Thromboplastin Time 54.2 Seconds (21.0-31.0)
[2023-08-06] MEDS: dilTIAZem HCL 125 MG in DEXTROSE 5% 100 ML IV SCH (00:58)
[2023-08-06] MEDS ORDERED: METOPROLOL TARTRATE 25 MG TAB PO SCH (06:00)
[2023-08-06] MEDS: PIPERACILLIN/TAZOBACTAM 4.5 GM in DEXTROSE 5% MINI-B 100 ML IV SCH ×3 (06:04→21:01)
[2023-08-06] MEDS: ALBUTEROL HFA 8 GM INHALER INH PRN (06:18)
[2023-08-06 07:26] LABS: Hematocrit (blood only) 43.5 % (37.0-47.0); Hemoglobin 13.7 g/dl (12.0-16.0); Mean Corpuscular Hemoglobin 29.8 pg (25.0-34.0); Mean Corpuscular Hgb Conc 31.5 g/dL (32.0-36.0); Mean Corpuscular Volume 94.6 fL (80.0-100.0); Mean Platelet Volume 12.2 fL (9.4-12.4); Platelet Count 79 K/uL (130-400); RDW Coefficient of Variation 13.9 % (11.5-14.5); RDW Standard Deviation 48.7 fL (36.4-46.3); White Blood Count 3.57 K/ul (4.8-10.8)
--- NOTE | 2023-08-06 07:28 | Cardiology Consultation ---
Date of Consultation August 06, 2023 Assessment & Plan (1) Right lower lobe pneumonia: (2) Hypoxia: -RLL pneumonia with hypoxia -Patient is a former smoker with COPD. 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 (6) Coronary artery disease: -Mild nonobstructive CAD per cardiac catheterization 01/27/2019 -Stable, no angina. (7) Chronic heart failure with preserved ejection fraction (HFpEF): -Chronic diastolic CHF, NYHA class 3 -On Lasix 20 mg MWF at home Plan IMPRESSION: Medically complex 88-year-old female who presented to [facility] emergency department due to shortness of breath and weakness, found to have right lower lobe pneumonia and was started on IV antibiotics. Also found to have new onset atrial fibrillation atrial fibrillation with RVR on 08/05/2023 around 4:20 PM. Initially treated with IV metoprolol and diltiazem. Started on heparin for stroke prevention. Self converted back to NSR with a 3.5 second conversion pause around 04:17am (08/06/2023)-- asymptomatic. Diltiazem discontinued. High risk of CVA with PAF due to elevated [id number] score of 8 (age 3, female, HTN, CAD, CHF, TIA 2)-- however does carry a history of a traumatic subarachnoid hemorrhage following a fall where she hit her head off of a corner of a MODLO[employer] in the setting of dual antiplatelet therapy with aspirin and Plavix. PLAN: Atrial fibrillation: Maintaining NSR on telemetry. Remain on telemetry- Continue low dose metoprolol succinate 12.5 mg daily. STOP metoprolol tartrate. For now-- Continue IV heparin during admission. Will need to consider long-term AC prior to discharge. Eliquis vs Coumadin. Echo pending- further recommendations pending results. RLL pneumonia: Treatment of pneumonia per primary team-- IV antibiotics currently Wean supplemental o2 as tolerate. Caution the use of IVF given underlying diastolic CHF-- Patient appears mildly hypervolemic on exam. Will give a 1 time dose of 20 mg IV Lasix. Blood cultures pending, preliminary no growth x24 hours. Hypertension: Initially hypotensive, BP now improved. Continue Isordil, metoprolol, and Norvasc as ordered. Case discussed with Dr. Singh-- will follow. I spent a total of 40 minutes on the date of service in preparation, delivery, and documentation of the care provided to this patient, excluding any time spent in the performance of separately billed services. Supervising Physician Co-Signing Physician Notes Supervising Physician Attestation: I have personally performed a history and physical examination on the patient. I agree with the nurse practitioner's findings and plan as documented with the following additions. Subjective: Patient feeling improved at present. Remains in sinus rhythm since conversion at 4:17 AM on 08/06/2023 with noted 3.5-second conversion pause while on diltiazem infusion. Exam: Pulmonary: Lungs with decreased breath sounds at the bases bilaterally Cardiovascular: 1/6 systolic murmur, no edema Data: EKG with findings of chronic left bundle branch block Echocardiogram in process at the time of this dictation, will be reviewed Assessment and Plan: -Discontinue IV diltiazem -Continue heparin for stroke prophylaxis -Discontinue IV fluid -Continue outpatient oral diuretic therapy DVT prophylaxis: IV heparin I spent a total of 20 minutes on the date of service in preparation, delivery, and documentation of the care provided to this patient, excluding any time spent in the performance of separately billed services. Mark Singh, DO History of Present Illness Reason for Consultation: AFIB RVR Requesting Physician: Fadia downey Attending Physician: Gareth Guzman MD History of Present Illness 88-year-old female who initially presented to [facility] emergency department yesterday morning due to shortness of breath x2 days and progressive weakness resulting in a fall. Upon EMS arrival patient had oxygen saturations in the mid 60s--treated with supplemental oxygen therapy and DuoNebs with improvement. Chest x-ray revealed right lower lobe pneumonia and was given IV Zosyn, thought to be due to aspiration. Yesterday evening around 4:20 PM tanya anusha was called as patient converted into atrial fibrillation with RVR, rates in the 150s to 170s. Patient complained of worsening shortness of breath and chest tightness. Patient was treated with IV metoprolol and a diltiazem drip was started. Anticoagulated with IV heparin. Labs revealed a stable CBC and BMP. Potassium and mag replaced. High- sensitivity troponin elevated (45.3>>320>>223.8). Tele: Currently sinus rhythm with an IVCD, 80s. 1 brief episode of PAT at 7:33 AM. Previously, patient was in atrial fibrillation till about 4:17 AM where she had a 3.5 conversion pause to sinus rhythm. Upon entrance into the room patient sitting on the edge of bed. Notably dyspneic with conversation and a moist productive cough. + Orthopnea. Requiring supplemental oxygen therapy at 4 L. No chest pain. Denies palpitations. No lightheadedness or dizziness. No recen t falls. No lower extremity edema. Primary Panel Machine Tender: Dr. Singh Past medical history: 1. Mild nonobstructive CAD per cardiac catheterization 01/27/2019 2. 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 Left bundle branch block noted post TAVR 05/27/2019 3. Carotid artery stenosis, 50-69% TONNY stenosis by duplex 03/12/2019 4. CKD stage 3 5. COPD a. Former smoker quit in 2014 6. Hypertension 7. Dyslipidemia, LDL goal below 70 8. Diastolic dysfunction 9. GERD 10. History of TIA 11. History of syncope a. No concerning dysrhythmias noted on Zio 05/2021 12. History of traumatic subarachnoid hemorrhage in the setting of dual anti- platelet therapy with aspirin and Plavix Allergies Allergy/AdvReac Type Severity Reaction Status Date / Time atenolol Allergy Intermediate RASH AND Verified 12/05/22 13:33 ITCHING-TAKES TOPROL-XL AT HOME Sulfa (Sulfonamide Allergy Mild "SULFA Verified 12/05/22 13:33 Antibiotics) DRUGS": UNKNOWN lisinopril AdvReac Intermediate COUGH Verified 12/05/22 13:33 Home Medications Medication Instructions Recorded Confirmed Type amlodipine 10 mg tablet 5 mg PO QAM 12/31/18 08/05/23 History meclizine 25 mg chewable tablet 25 mg PO TID PRN Anxiety 12/31/18 08/05/23 History isosorbide dinitrate 20 mg tablet 20 mg PO TID 05/29/19 08/05/23 History metoprolol succinate 25 mg 12.5 mg PO QAM 05/29/19 08/05/23 History tablet,extended release 24 hr simvastatin 20 mg tablet 20 mg PO HS 05/29/19 08/05/23 History vit C 250 mg-vit E 90 mg-zinc 40 1 tab PO BID 05/29/19 08/05/23 History mg-copper 1 [id number]-pgucfe capsule (PreserVision AREDS-2) ondansetron 4 mg disintegrating 4 - 8 mg PO Q8H PRN Nausea 05/16/20 08/05/23 History tablet docusate sodium 100 mg capsule 100 mg PO QAM 08/04/21 08/05/23 History (Colace) mirtazapine 15 mg disintegrating 15 mg PO HS 08/04/21 08/05/23 History tablet (Remeron SolTab) polyethylene glycol 3350 17 gram 17 g PO DAILY PRN Constipation 08/04/21 08/05/23 History oral powder packet (Miralax) aspirin 81 mg tablet,delayed 81 mg PO QAM 10/29/21 08/05/23 History release ergocalciferol (vitamin D2) 1,250 50,000 unit PO WK 10/29/21 08/05/23 History mcg (50,000 unit) capsule hydrocodone 5 mg-acetaminophen 325 1 tab PO Q8 PRN Pain 10/29/21 08/05/23 History mg tablet nystatin 100,000 unit/gram topical 1 applic topical TID PRN irritation 10/29/21 08/05/23 History powder zolpidem 5 mg tablet (Ambien) 5 mg PO HS PRN Sleep 10/29/21 08/05/23 History albuterol sulfate 0.63 mg/3 mL 0.63 mg inhalation Q4H PRN sob 09/27/22 08/05/23 History solution for nebulization fluoxetine 10 mg tablet 10 mg PO QAM 09/27/22 08/05/23 History furosemide 20 mg tablet 20 mg PO 3XWK 09/27/22 08/05/23 History omeprazole 20 mg capsule,delayed 20 mg PO BID #60 caps 10/05/22 08/05/23 Rx release fluticasone fur. 100 mcg-umeclid 1 inh inhalation QAM #60 ea 01/26/23 08/05/23 Rx 62.5 mcg-vilant 25 mcg inhalat.powder (Trelegy Ellipta) albuterol sulfate 90 mcg/actuation 2 inh inhalation QID PRN shortness 05/29/23 08/05/23 Rx aerosol inhaler (Ventolin HFA) of breath or wheezing #18 grams Patient History Medical History (Updated 08/06/23 @ 10:12 by ERWIN Burr) Vertebral artery stenosis 75% stenosis of left vertebral artery per 05/30/2019 neck CTA Traumatic subarachnoid hemorrhage hx - 02/2021? Vertigo Coronary artery disease "diffuse minor CAD by cardiac catheterization 01/27/2019" per [facility] cardio note 06/29/2021 Hip dislocation, left currently in a brace Transient ischemic attack (TIA) possible per cardio note, 02/26/2021-negative CT and MRI imaging-on ASA per cardio with Plavix d/c due to subdural hematoma that subsequently resolved (cleared by neurosurgery [facility]) Macular degeneration Dyspnea Multiple pulmonary nodules determined by computed tomography of lung no further imaging needed given stability from 2019 per [facility]m note 07/08/2021 Left bundle branch block chronic per [facility] cardio note-noted post TAVR 05/27/2019 per [facility] cardio note HTN (hypertension) controlled, stable per pt Dyslipidemia CKD (chronic kidney disease), stage III Osteoporosis COPD (chronic obstructive pulmonary disease) follows with [facility]m, on Trelegy Carotid stenosis 50-69% TONNY 03/12/2019 duplex per [facility] cardio GERD (gastroesophageal reflux disease) controlled, stable per pt Surgical History History of colonoscopy S/P revision of total hip left hip History of cardiac catheterization 05/15/2019 TAVR. 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 Bearden at [facility], 02/26/2021-normal gradient S/P tonsillectomy and adenoidectomy History of cataract surgery RT/LEFT H/O hernia repair RT INGUINAL HERNIA History of hysterectomy Family History Other No family history of adverse response to anesthesia Stroke Social History Smoking Status: Former smoker Second Hand Exposure: Yes (son smokes); Do You Dip or Chew Tobacco: No; Hx Alcohol Use: No Hx Substance Use: No Preferred Language: Faroese Communication Ability: Effective Predatory Animal Trapper Required: No Beliefs That Will Affect Care: None marital status: Current Living Situation: Spouse Other Information That Helps Us Care for You: No Feels Safe at Home: Yes Safety Concerns: Feels Safe At This Time Assistive Devices: Brace/Splint/Immobilizer, Cane, Glasses and Walker Review of Systems Review of Systems: All systems reviewed & are unremarkable except as noted in HPI & below Physical Exam Constitutional: + ill appearing; no acute distress Neck: normal visual inspection and trachea midline Respiratory: + labored breathing, + cough and + tripo d positioning Auscultation: + rales, + rhonchi and + wheezes Cardiovascular: Rate/Rhythm: regular rate and regular rhythm Heart Sounds: normal S1, normal S2 and + murmur (+2/6 systolic murmur) Vessels: no JVD Extremities: no edema Gastrointestinal (Abdomen): normal bowel sounds, soft, nontender, no hepatosplenomegaly Skin: no rashes, warm and dry Psychiatric: A+Ox3, euthymic affect Results & Data Vital Signs (Past 12 Hours) Vital Signs Temp Pulse Pulse Resp BP Pulse Ox O2 Del Method 08/06/23 06:40 81 125/72 08/06/23 06:19 18 96 Nasal Cannula 08/06/23 02:26 37.1 C 83 18 132/84 97 Nasal Cannula 08/06/23 00:17 93 H 08/05/23 21:44 99 H 109/70 08/05/23 19:35 37.5 C 105 H 20 128/81 97 Nasal Cannula 08/05/23 19:30 Nasal Cannula O2 Flow Rate 08/06/23 06:40 08/06/23 06:19 4 08/06/23 02:26 3 08/06/23 00:17 08/05/23 21:44 08/05/23 19:35 3 08/05/23 19:30 2 Laboratory Results Cardiac Enzymes 08/05/23 08/05/23 Range/Units 12:02 19:51 Troponin I High Sens 320.0 H* D 223.8 H* D (0-14) pg/ml Coagulation 08/05/23 08/05/23 08/05/23 Range/Units 17:17 19:51 23:13 APTT Cancelled 37.3 H 54.2 H* 08/06/23 Range/Units 06:13 APTT 58.9 H* CBC 08/06/23 Range/Units 06:13 WBC 3.57 L (4.8-10.8) K/ul RBC 4.60 (4.20-5.40) M/uL Hgb 13.7 (12.0-16.0) g/dl Hct 43.5 (37.0-47.0) % Plt Count 79 L (130-400) K/uL Comprehensive Metabolic Panel 08/06/23 Range/Units 06:13 Sodium 136 (136-145) mmol/L Potassium 4.6 D (3.5-5.1) mmol/L Chloride 100 (98-107) mmol/L Carbon Dioxide 27 (21-32) mmol/L BUN 22 (6-23) mg/dl Creatinine 1.21 H (0.6-1.2) mg/dl Glucose 147 H (70-99(Fasting)) mg/dl Calcium 8.8 (8.6-10.3) mg/dl Intake and Output 08/05/23 08/06/23 08/06/23 22:59 06:59 14:59 Intake Total 444.166 / 808.000 263.834 / 534.159 5876.5 / 1207.5 Output Total 200 / 200 Balance 444.166 / 608.000 63.834 / 594.947 4830.5 / 1207.5 Intake: IV 444.166 / 808.000 263.834 / 840.555 1822.5 / 1207.5 Heparin Sodium/Dextrose 25,000 25.25 / 115.00 89.75 / 115.00 107.5 / 107.5 units In 500 ml @ 750 UNITS/HR 15 mls/hr IV .Q24H [facility] Rx#: [id number] Lactated Ringer's 1,000 ml @ 60 1000 / 1000 mls/hr IV .[id number] [facility] Rx#: [id number] Magnesium Sulfate / D5w 1 gm In 200 / 200 100 ml @ 50 mls/hr IV Q2H [facility] Rx#:[id number] Piperacillin/Tazobactam 4.5 gm 200 / 200 100 / 100 In Dextrose 5% Mini-B 100 ml @ 200 mls/hr IV Q8H [facility] Rx#: [id number] dilTIAZem HCL 125 mg In 18.916 / 193.000 174.084 / 193.000 Dextrose 5% 100 ml @ 15 MG/HR 15 mls/hr IV .[id number] [facility] Rx#: [id number] Output: Urine 200 / 200 Other: Other Intake Source SIPS # Unmeasured Voids 1 Weight 75.1 kg 75.8 kg Weight Measurement Method Built in [facility] Findings ECHO PENDING* Echo 02/2022 at [facility] LVEF 60 to 65% Moderate concentric LVH LV wall motion normal LV systolic function normal Trace MR Status post TAVR without significant prosthetic regurgitation Gradients normal for prosthetic aortic valve (1) Right lower lobe pneumonia Pneumonia type: due to unspecified organism Qualified Code(s): J18.9 - Pneumonia, unspecified organism (6) Coronary artery disease Associated angina: without angina Coronary Disease-Associated Artery/Lesion type: [place] artery [place] vs. transplanted heart: [place] heart Qualified Code(s): I25.10 - Atherosclerotic heart disease of [place] coronary artery without angina pectoris
[2023-08-06] MEDS: FLUTICASONE FUROATE 100MCG 14 PUFFS/INHALER INH SCH (07:31)
[2023-08-06] MEDS: PANTOprazole 40 MG TAB PO SCH ×2 (07:32→20:05)
[2023-08-06] MEDS: UMECLIDINIUM/VILANTEROL 62.5/25MCG 7 PUFFS/INHALER INH SCH (07:32)
[2023-08-06] MEDS: METOPROLOL SUCC 25MG EXT REL TAB PO SCH (07:33)
[2023-08-06] MEDS: ASPIRIN 81 MG ECTAB PO SCH (07:33)
[2023-08-06] MEDS: ERGOCALCIFEROL 50,000 UNITS 1250 MCG CAP PO SCH (07:33)
[2023-08-06] MEDS: amLODIPine BESYLATE 5 MG TAB PO SCH (07:34)
[2023-08-06] MEDS: FLUoxetine HCL 10 MG CAP PO SCH (07:34)
[2023-08-06] MEDS: DOCUSATE SODIUM 100 MG CAP PO SCH (07:34)
[2023-08-06 07:57] LABS: Partial Thromboplastin Ratio 2.1
[2023-08-06 08:03] LABS: BUN Creatinine Ratio 18.2 (10-20); Calcium 8.8 mg/dl (8.6-10.3); Creatinine Clr Calc Pharmacy 32.6 ml/min; Est GFR (African American) 46.6 ml/min; Est GFR (Non-African American) 40.2 ml/min; Magnesium 2.5 mg/dl (1.7-2.4); Phosphorus 3.1 mg/dl (2.5-4.9); Potassium 4.6 mmol/L (3.5-5.1)
[2023-08-06 08:07] LABS: Partial Thromboplastin Time 58.9 Seconds (21.0-31.0)
[2023-08-06] MEDS: LACTATED RINGER'S 1,000 ML IV SCH (08:42)
[2023-08-06] MEDS ORDERED: FUROSEMIDE 20 MG TAB PO SCH (09:00)
[2023-08-06] MEDS: ISOSORBIDE DINITRATE 20 MG TAB PO SCH ×3 (09:35→20:05)
[2023-08-06] MEDS ORDERED: FUROSEMIDE INJ 20 MG/2 ML VIAL IV ONE (10:29)
[2023-08-06] MEDS: ACETAMINOPHEN 325 MG TAB PO PRN ×2 (11:13→15:44)
--- NOTE | 2023-08-06 12:15 | Hospitalist Progress Note ---
Date of Service August 06, 2023 Assessment & Plan (1) Pneumonia: Plan Patient with significant history of smoking tobacco and also with history of COPD who reports occasional choking on food presented with shortness of breath for last 3 days and a fall last night/tripped over something in the dark. She is being managed for the following: RLL pneumonia, likely aspiration, ? community aquired Sepsis POA: Secondary to above. Temperature/respiratory rate elevated at presentation. Patient presenting with shortness of breath for 2 to 3 days, associated cough with greenish sputum. Patient reports choking on food occasionally. Respiratory viral screen negative. Admitting temperature/respiratory rate elevated, patient was hypoxic on room air [see HPI, does not use home O2] at presentation. Admitting CXR with right basilar atelectasis, ? Pneumonia. CT chest w/ mild pul edema and small bibasilar opacities Patient received Zosyn in the ED, c/w it 08/05 DC IVF, pt reports eating better. Follow admitting blood culture. Appreciate speech eval. De-escalate atb olga AFib RVR: Pt went in afib rvr evening of 08/05/23. Has h/o such, was on coumadin which was dc'd due to rec falls per pt's . Didn't receive her AM metoprolol on the day of admission due to "delay issues", went into afib around 420pm, received iv metoprolol 5 mg x q5m x 3 followed by diltiazem drip. Care was coordinated w/ cardio. Heparin drip was started due to elevated troponin. Now back to sinus rhythm. Cardio following, appreciate recs Mild Pul edema: likely 2/2 acute illness and afib rvr; pt requiring O2 (not on home O2), Echo pending. caridio on board, diuresing. Elevated trop: likely demand ischemia 2/2 illness excerbated afib rvr. Trop flat trended as her heart rate improved. Pt w/ no chest pain now, continue telemetry monitoring. follow echo. Other chronic medical conditions: CAD/HTN//HLD/COPD -continue with/resume home meds as and when able. DVT prophylaxis: Heparin subcu CODE STATUS: DNR/DNI Admission and Anticipated Discharge Date Admission Date: August 05, 2023 Subjective Patient was seen and examined at bedside. Patient was lying in bed, on 4 L oxygen via nasal cannula, NAD, still with low- grade fever on and off, reports cough with green sputum, reports eating okay and moving bowels okay, denies chest pain, reports some shortness of breath. Feels little better today. Physical Exam Physical Exam: GENERAL: Alert and oriented x3. NAD, on 4L NC O2. Appears ill/frail/weak. HEENT: No pallor, no icterus. Pupils equal, round and reactive to light. Oral mucosa moist. NECK: No JVD, no neck masses. HEART: S1 and S2 heard. Regular rate and rhythm. + murmur, no gallop. RESPIRATORY SYSTEM: Normal AP diameter. No accessory muscle use. No wheezing, RLL crackles ABDOMEN: Soft, bowel sounds present, nontender, no distention. CENTRAL NERVOUS SYSTEM: No facial droop. Speech is clear. Obeys simple commands. Moves extremities. EXTREMITIES: No edema, no erythema seen. Results & Data Results & Data Vital Signs (Past 12 Hours) Vital Signs Temp Pulse Pulse Resp BP Pulse Ox O2 Del Method 08/06/23 11:59 36.4 C L 08/06/23 11:00 37.9 C H 77 18 134/74 97 Nasal Cannula 08/06/23 08:00 Nasal Cannula 08/06/23 07:39 36.3 C L 76 22 145/76 H 4 L Nasal Cannula 08/06/23 06:40 81 125/72 08/06/23 06:19 18 96 Nasal Cannula 08/06/23 02:26 37.1 C 83 18 132/84 97 Nasal Cannula 08/06/23 00:17 93 H O2 Flow Rate 08/06/23 11:59 08/06/23 11:00 4 08/06/23 08:00 4 08/06/23 07:39 4 08/06/23 06:40 08/06/23 06:19 4 08/06/23 02:26 3 08/06/23 00:17
[2023-08-06 13:01] LABS: Appearance Urine Cloudy (Clear); Bilirubin Urine Negative (Negative); Blood Urine Negative (Negative); Color Urine Yellow; Epithelial Cell Urine Auto >30 /lpf (0-5); Glucose Urine UA Negative (Negative); Ketones Urine Negative (Negative); Leukocyte Esterase Urine 1+ (Negative); Nitrite Urine Negative (Negative); Protein Urine Negative (Negative); RBC Urine Automated 0-4 /hpf (0-4); Specific Gravity Urine 1.013 (1.000-1.030); Urobilinogen Urine Negative (Negative)
[2023-08-06 13:10] LABS: Bacteria Urine Automated 1+ (Negative)
[2023-08-06] MEDS: HEPARIN SODIUM/DEXTROSE 25,000 UNITS/500 ML BAG IV SCH (17:23)
[2023-08-06] MEDS: HYDROCODONE/ACETAMOPHEN 5/325MG TAB PO PRN (19:23)
[2023-08-06] MEDS: MIRTAZAPINE SOLTAB 15 MG PO SCH (20:05)
[2023-08-06] MEDS: SIMVASTATIN 20 MG TAB PO SCH (20:05)
[2023-08-06] MEDS: MELATONIN 3 MG TAB PO PRN (20:06)
[2023-08-07] MEDS: PIPERACILLIN/TAZOBACTAM 4.5 GM in DEXTROSE 5% MINI-B 100 ML IV SCH ×2 (06:30→14:56)
[2023-08-07 07:04] LABS: Partial Thromboplastin Ratio 2.7
--- NOTE | 2023-08-07 07:07 | Cardiology Progress Note ---
Date of Service August 07, 2023 Assessment & Plan (1) Right lower lobe pneumonia: (2) Hypoxia: Plan: -RLL pneumonia with hypoxia -Patient is a former smoker with COPD. 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 (6) Coronary artery disease: Plan: -Mild nonobstructive CAD per cardiac catheterization 01/27/2019 -Stable, no angina. (7) Chronic heart failure with preserved ejection fraction (HFpEF): Plan: -Chronic diastolic CHF, NYHA class 3 -On Lasix 20 mg MWF at home Plan IMPRESSION: Medically complex 88-year-old female who presented to [facility] emergency department due to shortness of breath and weakness, found to have right lower lobe pneumonia and was started on IV antibiotics. Also found to have new onset atrial fibrillation atrial fibrillation with RVR on 08/05/2023 around 4:20 PM. Initially treated with IV metoprolol and diltiazem. Started on heparin for stroke prevention. Self converted back to NSR with a 3.5 second conversion pause around 04:17am (08/06/2023)-- asymptomatic. Diltiazem discontinued. High risk of CVA with PAF due to elevated [id number] score of 8 (age 3, female, HTN, CAD, CHF, TIA 2)-- however does carry a history of a traumatic subarachnoid hemorrhage following a fall where she hit her head off of a corner of a counter in the setting of dual antiplatelet therapy with aspirin and Plavix. PLAN: Atrial fibrillation: PAF >> NSR 0417 am on 08/05/2023 *NSR >> AFIB with RVR 160-190s this am (08/07)- symptomatic with dyspnea and diaphoresis Remain on telemetry- Start amiodarone bolus and gtt. Continue low dose metoprolol succinate 12.5 mg daily. Transition IV heparin to Eliquis 5 mg BID. Replace electrolytes for a potassium goal of 4.0 and mag goal of 2.0-- 40 meq of KCL given this am for a K of 3.5. RLL pneumonia: Treatment of pneumonia per primary team-- IV antibiotics currently Wean supplemental o2 as tolerate. Caution the use of IVF given underlying diastolic CHF-- Patient appears hypervolemic on exam. Will give a 1 time dose of 40 mg IV Lasix this am. Blood cultures pending, preliminary no growth x24 hours. Hypertension: BP borderline hypotensive with AFIB RVR -Continue metoprolol succinate 12.5 mg daily -Hold Norvasc -Hold parameters in place for Isordil-- hold dose for a SBP less than 100. Case discussed with Dr. Singh-- will follow. I spent a total of 40 minutes on the date of service in preparation, delivery, and documentation of the care provided to this patient, excluding any time spent in the performance of separately billed services. Admission and Anticipated Discharge Date Admission Date: August 05, 2023 Supervising Physician Co-Signing Physician Notes Supervising Physician Attestation: I have personally performed a history and physical examination on the patient. I agree with the nurse practitioner's findings and plan as documented with the following additions. Subjective: On my initial assessment this am , shortly after patient assessed by Ms. Jenkins, pt was short of breath with heavy persperation noted. On reassessment, more comfortable , sleeping. Recurrent AF , RVR , onset 08/07/23 at 8:18 am ventricular rates 160s-190s , down to 120-130s after start of amiodarone infusion. Exam: Pulmonary: Lungs with decreased breath sounds at the bases bilaterally Cardiovascular: 1/6 systolic murmur, no edema Data: EKG with findings of chronic left bundle branch block Echocardiogram:LVEF 50-55%, normal valvular indices Assessment and Plan: -Agree with plans for IV amiodarone. Patient has underlying lung disease and therefore amiodarone use is not ideal, however, she has highly symptomatic AF with RVR and amiodarone still best option for acute rate and rhythm control and perhaps rhythm control in the longe term . -IV furosemide x 2. -Consider transitioning to an alternative antibiotic regimen with less IVF such as IV rocehin and oral doxycycline. -DC IV heparin, start Eliquis. I spent a total of 20 minutes on the date of service in preparation, delivery, and documentation of the care provided to this patient, excluding any time spent in the performance of separately billed services. Mark Singh, DO Subjective Medically complex 88-year-old female who presented to [facility] emergency department due to shortness of breath and weakness, found to have right lower lobe pneumonia and was started on IV antibiotics. Also found to have new onset atrial fibrillation atrial fibrillation with RVR on 08/05/2023 around 4:20 PM. Initially treated with IV metoprolol and diltiazem. Started on heparin for stroke prevention. 08/06/2023: IV diltiazem discontinued. IV fluids discontinued, given one-time dose of 20 mg of IV Lasix due to mild hypervolemia. Metoprolol succinate 12 and half milligrams daily continued. IV heparin for stroke prevention continued. Echocardiogram: Technically limited due to the to the patient having to sit upright. Patient was in sinus rhythm with a left bundle branch block during echocardiogram. LVEF 50 to 55% with moderate concentric LVH. Status post TAVR with stable gradients and no significant aortic regurgitation. Grade 1 diastolic dysfunction. 08/07/2023: Upon entrance into the room patient sitting up in bed. Nursing at bedside. Overnight heart rates controlled in sinus rhythm. This AM patient converted to atrial fibrillation with RVR with rates in the 160-190s. Given IV Lopressor 5 mg x2 with improvement in rates to the 140s-150s. Dyspneic with conversation. + Orthopnea and cough. Mild lower extremity edema. Continues to require supplemental oxygen. No chest pain or palpitations. No lightheadedness. +Diaphoretic. Labs: Mild elevation in scr, potassium low at 3.5. mag WNL. I&O: +1.8L Weight: 75.1 kg >> 13.3 kg Review of Systems Review of Systems: All systems reviewed & are unremarkable except as noted in HPI & below Physical Exam Constitutional: + ill appearing; no acute distress Neck: normal visual inspection and trachea midline Respiratory: + labored breathing, + cough and + tachy pneic Auscultation: + rales, + rhonchi and + wheezes Cardiovascular: Rate/Rhythm: + tachycardic and + irregularly irregular Heart Sounds: normal S1, normal S2 and + murmur (+2/6 systolic murmur) Vessels: no JVD Extremities: + edema (+1 BLLE pitting edema ) Gastrointestinal (Abdomen): normal bowel sounds, soft, nontender, no hepatosplenomegaly Skin: no dry skin Neurologic: PERRL, EOMI, accommodation nl, no face palsy, no dysarthria Psychiatric: Orientation: alert and oriented x 3 Results & Data Vital Signs (Past 12 Hours) Vital Signs Temp Pulse Pulse Resp BP Pulse Ox O2 Del Method 08/07/23 03:35 37.1 C 93 H 18 158/85 H 94 Nasal Cannula 08/06/23 23:40 36.8 C 81 20 124/56 L 98 Nasal Cannula 08/06/23 23:00 76 08/06/23 19:50 Nasal Cannula 08/06/23 19:09 37.4 C 77 18 136/79 98 Nasal Cannula O2 Flow Rate 08/07/23 03:35 4 08/06/23 23:40 4 08/06/23 23:00 08/06/23 19:50 4 08/06/23 19:09 4 Laboratory Results Coagulation 08/07/23 Range/Units 05:30 APTT 75.5 H* (21.0-31.0) Seconds CBC 08/07/23 Range/Units 05:42 WBC 3.80 L (4.8-10.8) K/ul RBC 4.27 (4.20-5.40) M/uL Hgb 12.8 (12.0-16.0) g/dl Hct 39.4 (37.0-47.0) % Plt Count 59 L (130-400) K/uL Comprehensive Metabolic Panel 08/07/23 Range/Units 05:42 Sodium 135 L (136-145) mmol/L Potassium 3.5 D (3.5-5.1) mmol/L Chloride 98 (98-107) mmol/L Carbon Dioxide 31 (21-32) mmol/L BUN 24 H (6-23) mg/dl Creatinine 1.35 H (0.6-1.2) mg/dl Glucose 161 H (70-99(Fasting)) mg/dl Calcium 8.4 L (8.6-10.3) mg/dl Intake and Output 08/06/23 08/07/23 08/07/23 22:59 06:59 14:59 Intake Total 388.5 / 1963.0 120 / 1963.0 307.25 / 307.25 Output Total 401 / 802 401 / 802 Balance -12.5 / 1161.0 -281 / 1161.0 307.25 / 307.25 Intake: IV 238.5 / 1693.0 307.25 / 307.25 Heparin Sodium/Dextrose 25,000 138.5 / 246.0 207.25 / 207.25 units In 500 ml @ 750 UNITS/HR 15 mls/hr IV .Q24H [facility] Rx#: [id number] Piperacillin/Tazobactam 4.5 gm 100 / 300 100 / 100 In Dextrose 5% Mini-B 100 ml @ 200 mls/hr IV Q8H [facility] Rx#: [id number] Oral 150 / 270 120 / 270 Output: Urine 400 / 400 Urine Amount (Catheter) 400 / 400 External 400 / 400 # Bowel Movements 1 / 2 1 / 2 Other: # Unmeasured Voids 2 Weight 73.3 kg Weight Measurement Method Built in [facility] (1) Right lower lobe pneumonia Pneumonia type: due to unspecified organism Qualified Code(s): J18.9 - Pneumonia, unspecified organism (6) Coronary artery disease Associated angina: without angina Coronary Disease-Associated Artery/Lesion type: [place] artery [place] vs. transplanted heart: [place] heart Qualified Code(s): I25.10 - Atherosclerotic heart disease of [place] coronary artery without angina pectoris
[2023-08-07 07:09] LABS: Partial Thromboplastin Time 75.5 Seconds (21.0-31.0)
[2023-08-07 07:27] LABS: Hematocrit (blood only) 39.4 % (37.0-47.0); Hemoglobin 12.8 g/dl (12.0-16.0); Mean Corpuscular Hgb Conc 32.5 g/dL (32.0-36.0); Mean Corpuscular Volume 92.3 fL (80.0-100.0); Mean Platelet Volume 12.6 fL (9.4-12.4); Platelet Count 59 K/uL (130-400); RDW Coefficient of Variation 14.1 % (11.5-14.5); RDW Standard Deviation 47.7 fL (36.4-46.3); Red Blood Count 4.27 M/uL (4.20-5.40)
[2023-08-07] MEDS: FLUTICASONE FUROATE 100MCG 14 PUFFS/INHALER INH SCH (07:36)
[2023-08-07] MEDS: UMECLIDINIUM/VILANTEROL 62.5/25MCG 7 PUFFS/INHALER INH SCH (07:37)
[2023-08-07] MEDS: METOPROLOL SUCC 25MG EXT REL TAB PO SCH (07:37)
[2023-08-07] MEDS: ACETAMINOPHEN 325 MG TAB PO PRN (07:40)
[2023-08-07] MEDS: FLUoxetine HCL 10 MG CAP PO SCH (07:41)
[2023-08-07] MEDS: ISOSORBIDE DINITRATE 20 MG TAB PO SCH (07:41)
[2023-08-07] MEDS: amLODIPine BESYLATE 5 MG TAB PO SCH (07:41)
[2023-08-07] MEDS: PANTOprazole 40 MG TAB PO SCH ×2 (07:42→20:24)
[2023-08-07] MEDS: ASPIRIN 81 MG ECTAB PO SCH (07:42)
[2023-08-07 07:46] LABS: BUN Creatinine Ratio 17.8 (10-20); Calcium 8.4 mg/dl (8.6-10.3); Creatinine Clr Calc Pharmacy 28.8 ml/min; Est GFR (African American) 40.8 ml/min; Est GFR (Non-African American) 35.2 ml/min; Magnesium 2.1 mg/dl (1.7-2.4); Potassium 3.5 mmol/L (3.5-5.1)
[2023-08-07] MEDS: DOCUSATE SODIUM 100 MG CAP PO SCH (08:14)
[2023-08-07] MEDS ORDERED: METOPROLOL TARTRATE 1 MG/ML VIAL IV ONE ×2 (08:37→08:47)
[2023-08-07] MEDS: METOPROLOL TARTRATE 1 MG/ML VIAL IV PRN ×3 (08:47→09:10)
[2023-08-07] MEDS ORDERED: AMIODARONE / D5W 150 MG/100 ML BAG IV STA (08:59)
[2023-08-07] MEDS ORDERED: AMIODARONE IV BOLUS & DRIP IV STA (08:59)
[2023-08-07] MEDS ORDERED: STAT IV Infusion **Titration per Protocol STA ×2 (08:59→14:59)
[2023-08-07] MEDS ORDERED: 0.2 MICRON FILTER SET 1 EACH IV STA (08:59)
[2023-08-07] MEDS ORDERED: POTASSIUM CHLORIDE CRTAB 20 MEQ TABCR PO STA ×2 (09:04→21:28)
[2023-08-07] MEDS ORDERED: AMIODARONE / D5W 360 MG/200 ML BAG IV ONE (09:09)
[2023-08-07] MEDS: FUROSEMIDE 40 MG/4 ML VIAL IV ONE ×2 (09:23→10:53)
[2023-08-07] MEDS: DOXYCYCLINE HYCLATE 100 MG in DEXTROSE 5% MINI-B 100 ML IV SCH ×2 (10:35→20:39)
[2023-08-07] MEDS: APIXABAN 5 MG TABLET PO SCH ×2 (10:35→20:24)
--- NOTE | 2023-08-07 12:01 | XRay Report ---
SINGLE VIEW CHEST CLINICAL HISTORY: Fever. Atelectasis. FINDINGS: An AP, portable, upright chest radiograph is compared to chest x-ray and chest CT dated . The examination is degraded by portable technique and patient rotation. There is evidence of previous cardiac valve surgery. The heart is enlarged noting atherosclerotic calcification of the th oracic aorta. There is pulmonary vascular congestion. There are small pleural effusions with dependen t consolidation. Scattered calcified granulomas are observed. No pneumothorax is seen. The skeletal s tructures are osteopenic. The bony thorax is grossly intact. Arthritic change is seen in the shoulder s. IMPRESSION: 1. Cardiomegaly with evidence of congestive failure. 2. Small pleural effusions with dependent consolidation. ACT 112: Negative or not required by law. Electronically signed by: Riley Hernandez M.D. 08/07/2023 12:00 PM
--- NOTE | 2023-08-07 12:34 | Infectious Disease Consult ---
Date of Service August 07, 2023 Telehealth Information I performed this visit using a real-time telehealth connection between my location and the patients location ([facility]). After connecting through interactive tele-video, patient was identified by name and date of and/or wristband check.Patient (or authorized healthcare sales representative facility services) was informed that this was a telemedicine visit and it was being conducted confidentially over secure lines. My office door was closed and no one else was present in the room with me.Patient (or authorized healthcare sales representative facility services) provided consent to proceed with the visit, expressed an understanding of privacy and security of the telemedicine visit, and gave permission to have a hospital sales representative facility services in the room in order to assist with the visit and to conduct portions of the visit, as needed. I informed the patient (or authorized healthcare sales representative facility services) that I reviewed their record and presented the opportunity for them to ask any questions regarding the visit today. The patient agreed to participate. Assessment & Plan (1) Pneumonia: Plan: Assessment: Fever suspected sepsis Hypoxic respiratory failure MISAEL on CKD Mild leukopenia and thrombocytopenia Hx of COPD, smoking, TAVR, CAD, HTN, CKD IIIb Hx of allergy to sulfa Recommendations: - Continue zosyn to complete no more than total 5 days given no clear alternative diagnosis - I agree w/ doxycycline 200 mg po bid - Check MRSA screen - Check Legionella urine antigen - Check pneumococcal urine antigen - Check respiratory PCR panel to rule out viral infection and atypical bacterial pathogens other than RSV, influenza, and SARS-CoV-2 - F/u blood cultures - Check Lyme serology and anaplasma serum PCR - Please, contact ID if the patient clinically deteriorates More than 50% of [id number] visit was spent counseling and coordinating care pertaining to the patient's infection diagnosis, additional work-up, and treatment option(s) as well as potential adverse events of the treatment. History of Present Illness History of Present Illness This is an 88 y/o female (Makenna) w/ hx of COPD (not on oxygen at home), ex- smoking, TAVR, CAD, HTN, HLD, CKD IIIb, L THR (done twice) and intermittent aspiration(?), who presented to [facility] for 3 days of sob and fever and a fall the night before hospital presentation (tripped over something in the dark). On presentation (08/04/23), she was found to have fever, tachypnea, and hypoxia on room air w/ elevated PCT. Also, the patient was found to have A fib w/w RVR. The patient was started on zosyn. CT chest showed small bibasilar densities. ID was called to evaluate the patient for questionable pneumonia w/ fever despite antibiotic therapy. He is resting comfortably in bed on NC, 4 liter. She believes she is breathing better but still feels sob. She coughs w/ intermittent greenish mucus. No chest pain, n/v, abd pain, diarrhea, or urinary symptoms. She had fever this am. She has chronic abd discomfort that has not changed. No recent sick contact. No LESTER. She has a dog. She states that she was told that she had possible PNA in early July but she was not given any antibiotic. She is currently on zosyn and doxycycline. Trudy, nursing staff, at bedside. Allergies Allergy/AdvReac Type Severity Reaction Status Date / Time atenolol Allergy Intermediate RASH AND Verified 12/05/22 13:33 ITCHING-TAKES TOPROL-XL AT HOME Sulfa (Sulfonamide Allergy Mild "SULFA Verified 12/05/22 13:33 Antibiotics) DRUGS": UNKNOWN lisinopril AdvReac Intermediate COUGH Verified 12/05/22 13:33 Home Medications Medication Instructions Recorded Confirmed Type amlodipine 10 mg tablet 5 mg PO QAM 12/31/18 08/05/23 History meclizine 25 mg chewable tablet 25 mg PO TID PRN Anxiety 12/31/18 08/05/23 History isosorbide dinitrate 20 mg tablet 20 mg PO TID 05/29/19 08/05/23 History metoprolol succinate 25 mg 12.5 mg PO QAM 05/29/19 08/05/23 History tablet,extended release 24 hr simvastatin 20 mg tablet 20 mg PO HS 05/29/19 08/05/23 History vit C 250 mg-vit E 90 mg-zinc 40 1 tab PO BID 05/29/19 08/05/23 History mg-copper 1 of-lpxvlr-[id number] capsule (PreserVision AREDS-2) ondansetron 4 mg disintegrating 4 - 8 mg PO Q8H PRN Nausea 05/16/20 08/05/23 History tablet docusate sodium 100 mg capsule 100 mg PO QAM 08/04/21 08/05/23 History (Colace) mirtazapine 15 mg disintegrating 15 mg PO HS 08/04/21 08/05/23 History tablet (Remeron SolTab) polyethylene glycol 3350 17 gram 17 g PO DAILY PRN Constipation 08/04/21 08/05/23 History oral powder packet (Miralax) aspirin 81 mg tablet,delayed 81 mg PO QAM 10/29/21 08/05/23 History release ergocalciferol (vitamin D2) 1,250 50,000 unit PO WK 10/29/21 08/05/23 History mcg (50,000 unit) capsule hydrocodone 5 mg-acetaminophen 325 1 tab PO Q8 PRN Pain 10/29/21 08/05/23 History mg tablet nystatin 100,000 unit/gram topical 1 applic topical TID PRN irritation 10/29/21 08/05/23 History powder zolpidem 5 mg tablet (Ambien) 5 mg PO HS PRN Sleep 10/29/21 08/05/23 History albuterol sulfate 0.63 mg/3 mL 0.63 mg inhalation Q4H PRN sob 09/27/22 08/05/23 History solution for nebulization fluoxetine 10 mg tablet 10 mg PO QAM 09/27/22 08/05/23 History furosemide 20 mg tablet 20 mg PO 3XWK 09/27/22 08/05/23 History omeprazole 20 mg capsule,delayed 20 mg PO BID #60 caps 10/05/22 08/05/23 Rx release fluticasone fur. 100 mcg-umeclid 1 inh inhalation QAM #60 ea 01/26/23 08/05/23 Rx 62.5 mcg-vilant 25 mcg inhalat.powder (Trelegy Ellipta) albuterol sulfate 90 mcg/actuation 2 inh inhalation QID PRN shortness 05/29/23 08/05/23 Rx aerosol inhaler (Ventolin HFA) of breath or wheezing #18 grams Patient History Medical History (Updated 08/07/23 @ 12:33 by Stewart Celis MD) Vertebral artery stenosis 75% stenosis of left vertebral artery per 05/30/2019 neck CTA Traumatic subarachnoid hemorrhage hx - 02/2021? Vertigo Coronary artery disease "diffuse minor CAD by cardiac catheterization 01/27/2019" per [facility] cardio note 06/29/2021 Hip dislocation, left currently in a brace Transient ischemic attack (TIA) possible per cardio note, 02/26/2021-negative CT and MRI imaging-on ASA per cardio with Plavix d/c due to subdural hematoma that subsequently resolved (cleared by neurosurgery [facility]) Macular degeneration Dyspnea Multiple pulmonary nodules determined by computed tomography of lung no further imaging needed given stability from 2019 per [facility] pulm note 07/08/2021 Left bundle branch block chronic per [facility] cardio note-noted post TAVR 05/27/2019 per [facility] cardio note HTN (hypertension) controlled, stable per pt Dyslipidemia CKD (chronic kidney disease), stage III Osteoporosis COPD (chronic obstructive pulmonary disease) follows with [facility] pulm, on Trelegy Carotid stenosis 50-69% TONNY 03/12/2019 duplex per [facility] cardio GERD (gastroesophageal reflux disease) controlled, stable per pt Surgical History History of colonoscopy S/P revision of total hip left hip History of cardiac catheterization 05/15/2019 TAVR. 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 Bearden at [facility], 02/26/2021-normal gradient S/P tonsillectomy and adenoidectomy History of cataract surgery RT/LEFT H/O hernia repair RT INGUINAL HERNIA History of hysterectomy Family History Other No family history of adverse response to anesthesia Stroke Social History Smoking Status: Former smoker Second Hand Exposure: Yes (son smokes); Do You Dip or Chew Tobacco: No; Hx Alcohol Use: No Hx Substance Use: No Preferred Language: Luxembourgish Communication Ability: Effective Creative Manager Required: No Beliefs That Will Affect Care: None marital status: Current Living Situation: Spouse Other Information That Helps Us Care for You: No Feels Safe at Home: Yes Safety Concerns: Feels Safe At This Time Assistive Devices: Brace/Splint/Immobilizer, Cane, Glasses and Walker Review of Systems as above and all others negative Physical Exam Gen: no acute distress Lungs: breathing comfortably on 4 liter O2 via NC Neuro: awake, alert, and oriented x3, conversant Results & Data Vital Signs (Past 12 Hours) Vital Signs Temp Pulse Pulse Resp BP BP BP 08/07/23 10:49 37.5 C 123 H 18 123/83 105/71 08/07/23 10:10 133 H 107/65 08/07/23 09:53 123 H 08/07/23 09:27 120 H 86/62 L 08/07/23 09:10 145 H 107/70 08/07/23 09:09 145 H 100/70 08/07/23 08:47 179 H 112/72 08/07/23 08:06 08/07/23 07:26 38.0 C H 99 H 18 138/79 08/07/23 06:00 95 H 08/07/23 03:35 37.1 C 93 H 18 158/85 H Pulse Ox O2 Del Method O2 Flow Rate 08/07/23 10:49 94 Nasal Cannula 4 08/07/23 10:10 08/07/23 09:53 08/07/23 09:27 08/07/23 09:10 08/07/23 09:09 08/07/23 08:47 08/07/23 08:06 Nasal Cannula 4 08/07/23 07:26 93 Nasal Cannula 4 08/07/23 06:00 08/07/23 03:35 94 Nasal Cannula 4 Laboratory Results Labs WBC 3.8K H 12.8 Plt 59K Na 135 Cr 1.35 PCT 7.98 Blood cx (08/05): NGTD RSV/flu/SARS-CoV-2 pcr (08/05): neg UA (08/06): LE 1+ U cx (08/06): result pending Blood cx (08/07): result pending CT chest (08/05/23): 1. Cardiomegaly with trace bilateral pleural effusions and mild interstitial pulmonary edema. 2. Small bibasilar densities favor subsegmental atelectasis. A pneumonia could also have a similar appearance but is considered less likely. (1) Pneumonia Pneumonia type: due to unspecified organism Laterality: right Lung location: lower lobe of lung Qualified Code(s): J18.9 - Pneumonia, unspecified organism
[2023-08-07 14:05] LABS: Lyme Ab IgG w/WB Rflx Negative (Negative); Lyme Ab IgM w/WB Rflx Negative (Negative)
[2023-08-07 14:08] LABS: Anaplasmosis Smear(Rpt to DOH) Pos for Anaplasma
[2023-08-07] MEDS ORDERED: dilTIAZem HCL 125 MG in DEXTROSE 5% 100 ML IV SCH (15:00)
--- NOTE | 2023-08-07 15:02 | Communication Note ---
Date of Service: August 07, 2023 Patient reassessed. No acute distress, but feels exhausted and washed out. AF with rates in the range of 120-140 bpm. Continue amiodarone infusion. Add back Diltazem infusion, start 2.5 mg /hr. Change metoprolol succinate 12.5 mg daily, to tartrate 12.5 mg QID. Findings suggest possible anaplasmosis which may explain her fever. ID consult pending. Will review with Dr Guzman with regards to transitioning from Zosyn to doxycycline.
--- NOTE | 2023-08-07 15:33 | Hospitalist Progress Note ---
Date of Service August 07, 2023 Assessment & Plan (1) Pneumonia: Plan Patient with significant history of smoking tobacco and also with history of COPD who reports occasional choking on food presented with shortness of breath for last 3 days and a fall last night/tripped over something in the dark. She is being managed for the following: RLL pneumonia, likely aspiration, ? community aquired Sepsis POA: Secondary to above. Temperature/respiratory rate elevated at presentation. Patient presenting with shortness of breath for 2 to 3 days, associated cough with greenish sputum. Patient reports choking on food occasionally. Respiratory viral screen negative. speech evaled, neg for aspiration. Admitting temperature/respiratory rate elevated, patient was hypoxic on room air [see HPI, does not use home O2] at presentation. Admitting CXR with right basilar atelectasis, ? Pneumonia. CT chest w/ mild pul edema and small bibasilar opacities Patient received Zosyn in the ED, c/w it 08/05 --> still febrile --->doxy added 08/07 --> tick borne serology sent --> anaplasma came back +ve 08/07 Switch zosyn to rocephin 08/07 for concerns of CAP. Sent tick borne serology/mrsa/resp viral panel/repeat bl cx 08/07 -- follow final results. Follow admitting bl cx. ID evaled, appreciate recs. AFib RVR: Pt went in afib rvr evening of 08/05/23. Has h/o such, was on coumadin which was dc'd due to rec falls per pt's . Didn't receive her AM metoprolol on the day of admission due to "delay issues", went into afib around 420pm, received iv metoprolol 5 mg x q5m x 3 followed by diltiazem drip. Care was coordinated w/ cardio. Heparin drip was started due to elevated troponin/afib rvr --> on eliquis now. Was back to sinus rhythm and cardizem drip was dc'd. Again went in Afib rvr 08/07 am ---> pt started on amiodarone drip/diltiazem drip/qid metoprolol . Cardio following, appreciate recs Mild Pul edema: likely 2/2 acute illness and afib rvr; pt requiring O2 (not on home O2), Echo reviewed. caridio on board, diuresis on hold due to soft bp. Elevated trop: likely demand ischemia 2/2 illness excerbated afib rvr. Trop flat trended as her heart rate improved. Pt w/ no chest pain now, continue telemetry monitoring.. Other chronic medical conditions: CAD/HTN//HLD/COPD -continue with/resume home meds as and when able. DVT prophylaxis: on eliquis CODE STATUS: DNR/DNI Admission and Anticipated Discharge Date Admission Date: August 05, 2023 Subjective Patient was seen and examined at bedside. Patient was lying in bed, on 4 L oxygen via nasal cannula, NAD, had temp of 38C in AM, reports cough with green sputum - improving, reports eating okay and moving bowels okay, denies chest pain, went into afib rvr again in AM a/w some sob; which she now reports has improved. Physical Exam Physical Exam: GENERAL: Alert and oriented x3. NAD, on 4L NC O2. Appears ill/frail/weak. HEENT: No pallor, no icterus. Pupils equal, round and reactive to light. Oral mucosa moist. NECK: No JVD, no neck masses. HEART: S1 and S2 heard. Regular rate and rhythm. + murmur, no gallop. RESPIRATORY SYSTEM: Normal AP diameter. No accessory muscle use. No wheezing, b/l mid and basal crackles ABDOMEN: Soft, bowel sounds present, nontender, no distention. CENTRAL NERVOUS SYSTEM: No facial droop. Speech is clear. Obeys simple commands. Moves extremities. EXTREMITIES: trace ble edema, no erythema seen. Results & Data Results & Data Vital Signs (Past 12 Hours) Vital Signs Temp Pulse Pulse Resp BP BP BP 08/07/23 10:49 37.5 C 123 H 18 123/83 105/71 08/07/23 10:10 133 H 107/65 08/07/23 09:53 123 H 08/07/23 09:27 120 H 86/62 L 08/07/23 09:10 145 H 107/70 08/07/23 09:09 145 H 100/70 08/07/23 08:47 179 H 112/72 08/07/23 08:06 08/07/23 07:26 38.0 C H 99 H 18 138/79 11/21/23 06:00 95 H 08/07/23 03:35 37.1 C 93 H 18 158/85 H Pulse Ox O2 Del Method O2 Flow Rate 08/07/23 10:49 94 Nasal Cannula 4 08/07/23 10:10 08/07/23 09:53 08/07/23 09:27 08/07/23 09:10 08/07/23 09:09 08/07/23 08:47 08/07/23 08:06 Nasal Cannula 4 08/07/23 07:26 93 Nasal Cannula 4 08/07/23 06:00 08/07/23 03:35 94 Nasal Cannula 4 (1) Pneumonia Pneumonia type: due to unspecified organism Laterality: right Lung location: lower lobe of lung Qualified Code(s): J18.9 - Pneumonia, unspecified organism
[2023-08-07] MEDS: AMIODARONE / D5W 360 MG/200 ML BAG IV SCH ×2 (15:41→23:43)
[2023-08-07] MEDS: HYDROCODONE/ACETAMOPHEN 5/325MG TAB PO PRN ×2 (16:48→20:23)
[2023-08-07] MEDS: METOPROLOL TARTRATE 25 MG TAB PO SCH ×2 (17:13→20:22)
[2023-08-07] MEDS: cefTRIAXone SODIUM 2,000 MG in DEXTROSE 5 % MINI-B 50 ML IV SCH (17:13)
[2023-08-07] MEDS ORDERED: MAGNESIUM SULFATE / D5W 1 GM/100 ML BAG IV ONE (17:45)
[2023-08-07] MEDS: MIRTAZAPINE SOLTAB 15 MG PO SCH (20:22)
[2023-08-07] MEDS: ATORVASTATIN 10 MG TAB PO SCH (20:24)
[2023-08-07] MEDS ORDERED: ALBUMIN 25% 25 GM/100 ML VIAL IV ONE (21:28)
--- NOTE | 2023-08-07 21:28 | Communication Note ---
Date of Service: August 07, 2023 Notified by RN of patient hypotension, SBP 80s, heart rate still rapid A-fib 120s. AP Hypotension, rapid A-fib Hold IV Cardizem infusion Continue amiodarone infusion Digoxin trial
[2023-08-07] MEDS ORDERED: DIGOXIN 250 MCG in SYRINGE 9 ML IV STA ×2 (21:29→23:19)
[2023-08-07 22:09] LABS: Adenovirus PCR Not Detected (NotDetected); Bordetella parapertussis PCR Not Detected (NotDetected); Bordetella pertussis PCR Not Detected (NotDetected); Chlamydia pneumoniae PCR Not Detected (NotDetected); Coronavirus 229E PCR Not Detected (NotDetected); Coronavirus CoV-2 (COVID19)PCR Not Detected (NotDetected); Coronavirus HKU1 PCR Not Detected (NotDetected); Coronavirus NL63 PCR Not Detected (NotDetected); Coronavirus OC43PCR Not Detected (NotDetected); Human Metapneumovirus PCR Not Detected (NotDetected); Influenza A PCR Not Detected (NotDetected); Influenza B PCR Not Detected (NotDetected); Mycoplasma pneumoniae PCR Not Detected (NotDetected); Parainfluenza Virus 1 PCR Not Detected (NotDetected); Parainfluenza Virus 2 PCR Not Detected (NotDetected); Parainfluenza Virus 3 PCR Not Detected (NotDetected); Parainfluenza Virus 4 PCR Not Detected (NotDetected); Respiratory Syncytial VirusPCR Not Detected (NotDetected); Rhinovirus/Enterovirus PCR Not Detected (NotDetected)
[2023-08-07] MEDS: POTASSIUM CHLORIDE / WTR 10 MEQ/100 ML PLCT IV SCH ×2 (22:25→23:19)
[2023-08-07 22:39] LABS: Thyroid Stimulating Hormone 0.935 uIu/ml (0.300-4.500)
[2023-08-08] MEDS: POTASSIUM CHLORIDE / WTR 10 MEQ/100 ML PLCT IV SCH ×2 (00:22→01:19)
--- NOTE | 2023-08-08 06:02 | Electrocardiogram Report ---
Test Reason : Blood Pressure : / mmHG Vent. Rate : 135 BPM Atrial Rate : 135 BPM P-R Int : 152 ms QRS Dur : 122 ms QT Int : 310 ms P-R-T Axes : 000 -22 128 degrees QTc Int : 465 ms Possible Sinus tachycardia with occasional Premature ventricular complexes Left bundle branch block Abnormal ECG When compared with ECG of 29-OCT-2021 20:08, Premature ventricular complexes are now Present Vent. rate has increased BY 48 BPM Confirmed by Sylvester Denney ([id number]) on 08/08/2023 6:02:39 AM Referred By: REFERRED SELF Confirmed By:Sylvester Denney
--- NOTE | 2023-08-08 07:23 | Cardiology Progress Note ---
Date of Service August 08, 2023 Assessment & Plan (1) Right lower lobe pneumonia: (2) Hypoxia: Plan: -RLL pneumonia with hypoxia -Patient is a former smoker with COPD. 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 (6) Coronary artery disease: Plan: -Mild nonobstructive CAD per cardiac catheterization 01/27/2019 -Stable, no angina. (7) Chronic heart failure with preserved ejection fraction (HFpEF): Plan: -Chronic diastolic CHF, NYHA class 3 -On Lasix 20 mg MWF at home Plan IMPRESSION: Medically complex 88-year-old female who presented to [facility] emergency department due to shortness of breath and weakness, found to have right lower lobe pneumonia and was started on IV antibiotics. Also found to have new onset atrial fibrillation atrial fibrillation with RVR on 08/05/2023 around 4:20 PM. Initially treated with IV metoprolol and diltiazem. Started on heparin for stroke prevention. Self converted back to NSR with a 3.5 second conversion pause around 04:17am (08/06/2023)-- asymptomatic. Diltiazem discontinued. High risk of CVA with PAF due to elevated [id number] score of 8 (age 3, female, HTN, CAD, CHF, TIA 2)-- however does carry a history of a traumatic subarachnoid hemorrhage following a fall where she hit her head off of a corner of a counter in the setting of dual antiplatelet therapy with aspirin and Plavix. PLAN: Atrial fibrillation: PAF >> NSR 0417 am on 08/05/2023 NSR >> AFIB with RVR 160-190s this am (08/07)- symptomatic with dyspnea and diaphoresis PAF ~0800 (08/07)>> NSR 23:53 (08/07) Remain on telemetry- Continue amiodarone bolus and gtt. Discontinue Dilt gtt due to hypotension Continue Metoprolol tartrate 12.5 mg QID Continue Eliquis 5 mg BID. Replace electrolytes for a potassium goal of 4.0 and mag goal of 2.0 MISAEL noted-- likely due to AFIB RVR and IV diuresis yesterday. Will conservatively manage, hold off on IVF at this time. Will reassess BMP in the am. Possible anaplasmosis-- will defer to primary team for treatment/management. ID consulted. RLL pneumonia: Treatment of pneumonia per primary team-- IV antibiotics currently. Wean supplemental o2 as tolerate. Caution the use of IVF given underlying diastolic CHF. Blood cultures pending, preliminary no growth x24 hours. Hypotension: BP hypotensive with AFIB RVR, now improving. -Continue metoprolol -Hold Norvasc -Hold Isordil Case discussed with Dr. Singh-- will follow. I spent a total of 30 minutes on the date of service in preparation, delivery, and documentation of the care provided to this patient, excluding any time spent in the performance of separately billed services. Admission and Anticipated Discharge Date Admission Date: August 05, 2023 Supervising Physician Co-Signing Physician Notes Supervising Physician Attestation: I have personally performed a history and physical examination on the patient. I agree with the TRAFFIC RATE COMPUTER's findings and plan as documented with the following additions. Subjective: Patient subjectively improved this morning, however still with generalized fatigue. Overnight last night, she received oral metoprolol, IV amiodarone, and a dose of IV digoxin. She previously received IV diltiazem but discontinued due to limitations with relative low systolic blood pressure. Per review of telemetry she converted from atrial fibrillation with rapid ventricular response to sinus bradycardia on 08/07/2023 at 2353 with a 1.9- second conversion pause. Exam: Pulmonary: Lungs with decreased breath sounds at the bases bilaterally Cardiovascular: 1/6 systolic murmur, no edema Data: EKG 08/08/2023 at 6:32 AM: Sinus rhythm at 60 bpm, first-degree AV block, PA interval 200 ms, left bundle branch block, QRS duration 140 ms. Corrected QT interval 452 ms Echocardiogram:LVEF 50-55%, normal valvular indices Assessment and Plan: -Acute kidney injury noted this morning with creatinine of 2.17 increased compared to admission level of 1.2 mg/dL. This is likely due to relative hyp operfusion/ATN from the atrial fibrillation with rapid ventricular response. -For now, hold additional IV fluids and IV diuretics for now. Anticipate renal function may worsen within improve with improvement in hemodynamics. -Continue IV amiodarone infusion 0.5 mg/min, metoprolol tartrate 12.5 mg 4 times daily. -Eliquis 5 mg twice daily for stroke prophylaxis. -Repeat EKG. -Monitor kidney function electrolytes. -Patient with fever which is improved. Possible pneumonia, cytoplasmic neutrophilic inclusions noted suggestive of possible anaplasmosis infection, confirmatory test pending. -Zosyn discontinued. Continue Rocephin, doxycycline, day 2 (08/08/2023). I spent a total of 25 minutes on the date of service in preparation, delivery, and documentation of the care provided to this patient, excluding any time spent in the performance of separately billed services. Mark Singh, DO Subjective Medically complex 88-year-old female who presented to [facility] emergency department due to shortness of breath and weakness, found to have right lower lobe pneumonia and was started on IV antibiotics. Also found to have new onset atrial fibrillation atrial fibrillation with RVR on 08/05/2023 around 4:20 PM. Initially treated with IV metoprolol and diltiazem. Started on heparin for stroke prevention. 08/06/2023: IV diltiazem discontinued. IV fluids discontinued, given one-time dose of 20 mg of IV Lasix due to mild hypervolemia. Metoprolol succinate 12.5 milligrams daily continued. IV heparin for stroke prevention continued. Echocardiogram: Technically limited due to the to the patient having to sit upright. Patient was in sinus rhythm with a left bundle branch block during echocardiogram. LVEF 50 to 55% with moderate concentric LVH. Status post TAVR with stable gradients and no significant aortic regurgitation. Grade 1 diastolic dysfunction. 08/07/2023: Converted from NSR >> AFIB with RVR 160-190s (08/07)- symptomatic with dyspnea and diaphoresis-- Amiodarone bolus and gtt started with mild improvement in rates-- 120-140s Metoprolol succinate transitioned to metoprolol tartrate 12.5 mg QID IV heparin transitioned to Eliquis 5 mg BID x1 dose of 40 mg IV lasix Rates remained tachycardic in the afternoon-- Diltiazem gtt added back at 2.5 mg/hr, became hypotensive in the evening around 9:30pm, Diltiazem held. Digoxin IV 250 mcg given at 21:30 and a second dose at 23:19 Blood work suggestive of anaplasmosis-- ID consulted. 08/08/2023: Patient converted from AFIB RVR>>NSR with a LBBB at 23:53 (08/07) Upon entrance into the room patient resting in bed. No acute concerns but does feel fatigued and weak. No chest pain. Shortness of breath subjectively improved. Mild orthopnea. No lower extremity edema. No palpitations or lightheadedness. Labs: BMP showing MISAEL with Scr of 2.17. I&O: +3.8L Weight: 75.1 kg >> 73.3 kg >> 74.2 kg Review of Systems Review of Systems: All systems reviewed & are unremarkable except as noted in HPI & below Physical Exam Constitutional: + ill appearing; no acute distress Neck: normal visual inspection and trachea midline Respiratory: + cough; no labored breathing and not ta chypneic Auscultation: + diminished lung sounds and + wheezes Cardiovascular: Rate/Rhythm: regular rate and regular rhythm Heart Sounds: normal S1, normal S2 and + murmur (+2/6 systolic murmur) Vessels: no JVD Extremities: no edema Gastrointestinal (Abdomen): normal bowel sounds, soft, nontender, no hepatosplenomegaly Skin: no rashes, warm and dry Neurologic: PERRL, EOMI, accommodation nl, no face palsy, no dysarthria Psychiatric: A+Ox3, euthymic affect Orientation: alert and oriented x 3 Results & Data Vital Signs (Past 12 Hours) Vital Signs Temp Pulse Pulse Resp BP BP Pulse Ox 08/08/23 06:09 36.6 C 08/08/23 05:20 36.3 C L 08/08/23 04:33 36.5 C 08/08/23 03:40 35.8 C L 54 L 18 112/57 L 95 08/08/23 00:44 55 L 94/46 L 08/07/23 23:53 56 L 08/07/23 23:39 103 H 08/07/23 22:15 124 H 08/07/23 21:47 123 H 85/55 L 08/07/23 21:22 128 H 82/54 L 08/07/23 20:10 36.4 C L 128 H 14 102/66 97 08/07/23 19:31 36.5 C 129 H 22 104/73 97 08/07/23 19:20 O2 Del Method O2 Flow Rate 08/08/23 06:09 08/08/23 05:20 08/08/23 04:33 08/08/23 03:40 Nasal Cannula 4.5 08/08/23 00:44 08/07/23 23:53 08/07/23 23:39 08/07/23 22:15 08/07/23 21:47 08/07/23 21:22 08/07/23 20:10 Nasal Cannula 4 08/07/23 19:31 Nasal Cannula 4.5 08/07/23 19:20 Nasal Cannula 4 Laboratory Results Cardiac Enzymes 08/08/23 Range/Units 05:55 AST 29 (13-39) U/L CBC 08/08/23 Range/Units 05:55 WBC 4.95 (4.8-10.8) K/ul RBC 3.97 L (4.20-5.40) M/uL Hgb 12.0 (12.0-16.0) g/dl Hct 38.0 (37.0-47.0) % Plt Count 66 L (130-400) K/uL Comprehensive Metabolic Panel 08/08/23 Range/Units 05:55 Sodium 134 L (136-145) mmol/L Potassium 4.4 D (3.5-5.1) mmol/L Chloride 96 L (98-107) mmol/L Carbon Dioxide 30 (21-32) mmol/L BUN 36 H (6-23) mg/dl Creatinine 2.17 H D (0.6-1.2) mg/dl Glucose 139 H (70-99(Fasting)) mg/dl Calcium 8.2 L (8.6-10.3) mg/dl AST 29 (13-39) U/L ALT 17 (7-52) U/L Alkaline Phosphatase 58 (34-104) U/L Total Protein 6.3 (6.0-8.3) gm/dl Albumin 3.5 (3.4-5.0) gm/dl Intake and Output 08/07/23 08/08/23 08/08/23 22:59 06:59 14:59 Intake Total 584.416 / 2022.656 634.157 / 2023.656 Output Total 100 / 100 Balance 484.416 / 1923.656 634.157 / 1922.656 Intake: IV 584.416 / 1773.656 634.157 / 1772.656 Albumin 25% 25 gm In 100 ml @ 100 / 100 50 mls/hr IV ONE ONE Rx#: [id number] Amiodarone / D5w 360 mg In 200 200 / 334.157 134.157 / 334.157 ml @ 0.5 MG/MIN 16.667 mls/hr IV .Q12H [facility] Rx#:[id number] Doxycycline Hyclate 100 mg In 100 / 200 Dextrose 5% Mini-B 100 ml @ 50 mls/hr IV Q12H [facility] Rx#:[id number] Magnesium Sulfate / D5w 1 gm In 100 / 100 100 ml @ 50 mls/hr IV ONE ONE Rx#:[id number] Piperacillin/Tazobactam 4.5 gm 100 / 200 In Dextrose 5% Mini-B 100 ml @ 200 mls/hr IV Q8H [facility] Rx#: [id number] Potassium Chloride / Wtr 10 meq 400 / 400 In 100 ml @ 100 mls/hr IV Q1H [facility] Rx#:[id number] cefTRIAXone SODIUM 2,000 mg In 50 / 50 Dextrose 5 % Mini-B 50 ml @ 100 mls/hr IV Q24H [facility] Rx#: [id number] dilTIAZem HCL 125 mg In 34.416 / 34.416 Dextrose 5% 100 ml @ 5 MG/HR 5 mls/hr IV .Q24H [facility] Rx#: [id number] Output: Urine 100 / 100 Other: Other Intake Source SIPS NPO # Unmeasured Voids 1 Weight 74.2 kg Weight Measurement Method Built in [facility] (1) Right lower lobe pneumonia Pneumonia type: due to unspecified organism Qualified Code(s): J18.9 - Pneumonia, unspecified organism (6) Coronary artery disease Associated angina: without angina Coronary Disease-Associated Artery/Lesion type: [place] artery [place] vs. transplanted heart: knik heart Qualified Code(s): I25.10 - Atherosclerotic heart disease of knik coronary artery without angina pectoris
[2023-08-08 07:34] LABS: Mean Corpuscular Hemoglobin 30.2 pg (25.0-34.0); Mean Corpuscular Hgb Conc 31.6 g/dL (32.0-36.0); Mean Corpuscular Volume 95.7 fL (80.0-100.0); Mean Platelet Volume 13.4 fL (9.4-12.4); Platelet Count 66 K/uL (130-400); RDW Coefficient of Variation 14.5 % (11.5-14.5); RDW Standard Deviation 51.5 fL (36.4-46.3); Red Blood Count 3.97 M/uL (4.20-5.40); White Blood Count 4.95 K/ul (4.8-10.8)
[2023-08-08 07:47] LABS: Albumin Globulin Ratio 1.3 (0.9-2); Albumin Level 3.5 gm/dl (3.4-5.0); BUN Creatinine Ratio 16.6 (10-20); Bilirubin,Total 0.7 mg/dl (0.2-1.0); Calcium 8.2 mg/dl (8.6-10.3); Est GFR (Non-African American) 19.8 ml/min; Globulin 2.8 gm/dl (2.5-4.0); Magnesium 2.5 mg/dl (1.7-2.4); Phosphorus 3.8 mg/dl (2.5-4.9); Potassium 4.4 mmol/L (3.5-5.1); Total Protein 6.3 gm/dl (6.0-8.3)
[2023-08-08] MEDS: PANTOprazole 40 MG TAB PO SCH ×2 (08:17→20:59)
[2023-08-08] MEDS: ASPIRIN 81 MG ECTAB PO SCH (08:18)
[2023-08-08] MEDS: METOPROLOL TARTRATE 25 MG TAB PO SCH ×4 (08:19→21:00)
[2023-08-08] MEDS: APIXABAN 5 MG TABLET PO SCH ×2 (08:19→21:01)
[2023-08-08] MEDS: FLUoxetine HCL 10 MG CAP PO SCH (08:19)
[2023-08-08] MEDS: FLUTICASONE FUROATE 100MCG 14 PUFFS/INHALER INH SCH (08:20)
[2023-08-08] MEDS: DOXYCYCLINE HYCLATE 100 MG in DEXTROSE 5% MINI-B 100 ML IV SCH ×2 (08:26→21:07)
[2023-08-08] MEDS: DOCUSATE SODIUM 100 MG CAP PO SCH (08:26)
[2023-08-08] MEDS: UMECLIDINIUM/VILANTEROL 62.5/25MCG 7 PUFFS/INHALER INH SCH (10:59)
[2023-08-08] MEDS: AMIODARONE / D5W 360 MG/200 ML BAG IV SCH ×2 (11:18→21:41)
[2023-08-08] MEDS: cefTRIAXone SODIUM 2,000 MG in DEXTROSE 5 % MINI-B 50 ML IV SCH (16:35)
--- NOTE | 2023-08-08 18:44 | Hospitalist Progress Note ---
Date of Service August 08, 2023 Assessment & Plan (1) Pneumonia: Plan Ms. Makenna Harris is an 88 year old woman with significant history of COPD (not on oxygen at home), ex-smoking, TAVR, CAD, HTN, HLD, CKD IIIb, L THR (done twice) and intermittent aspiration who presented on 08/05 due to SOB and fall and found to have sepsis, thought to be secondary to RLL pneumonia. She is being managed for the following: #Sepsis, secondary to the following *resolved #Right lower lobe pneumonia #Anaplasmosis Respiratory viral screen negative. speech evaled, neg for aspiration. Admitting temperature/respiratory rate elevated, patient was hypoxic on room air [see HPI, does not use home O2] at presentation. Admitting CXR with right basilar atelectasis CT chest w/ mild pul edema and small bibasilar opacities Patient received Zosyn in the ED, c/w it 08/05 --> still febrile --->doxy added 08/07 --> tick borne serology sent --> anaplasma came back +ve 08/07 Continue rocephin 08/07 for concerns of CAP. Continue doxycyline 200mg bid Follow up infectious work up Infectious disease following, appreciate recommendations #Acute hypoxic respiratory failure, multifactorial #COPD #Former Smoker -O2 requirement iso ?pneumonia and COPD -Continue home inhalers -Scheduled guaifenesin and flutter valve #Paroxysmal atrial fibrillation: #Calcific aortic stenosis, status post TAVR Pt went in afib rvr evening of 08/05/23. Has h/o such, was on coumadin which was dc'd due to rec falls per pt's . Didn't receive her AM metoprolol on the day of admission due to "delay issues", went into afib around 420pm, received iv metoprolol 5 mg x q5m x 3 followed by diltiazem drip. Care was coordinated w/ cardio. Heparin drip was started due to elevated troponin/afib rvr --> on eliquis now. Was back to sinus rhythm and cardizem drip was dc'd. Again went in Afib rvr 08/07 am ---> pt started on amiodarone drip/diltiazem drip/qid metoprolol Cardio following: -NSR now, dilt drip discontinued -Continue meotprolol 12.5 mg QID -Continue eliquis 5mg bid -Replace lytes prn -Continue amio drip #Mild nonobstructive CAD per cardiac catheterization 01/27/2019 #Left bundle branch block noted post TAVR 05/27/2019 #Chronic heart failure with preserved ejection fraction (HFpEF): -On Lasix 20 mg MWF at home #Elevated trop: likely demand ischemia 2/2 illness excerbated afib rvr. Trop flat trended as her heart rate improved. Pt w/ no chest pain now, continue telemetry monitoring.. DVT prophylaxis: on eliquis CODE STATUS: DNR/DNI Admission and Anticipated Discharge Date Admission Date: August 05, 2023 Subjective NAEO Eating breakfast during evaluation, doesnt seem to have much insight into current admission, but denies any pain or acute concerns Review of Systems Review of Systems: All systems reviewed & are unremarkable except as noted in Subjective Physical Exam Constitutional: WD/WN, vitals as above Respiratory: normal respiratory effort, lungs clear to auscultation Cardiovascular: RRR, no murmur, no edema Results & Data Results & Data Vital Signs (Past 12 Hours) Vital Signs Temp Pulse Pulse Resp BP Pulse Ox O2 Del Method 08/08/23 16:35 65 08/08/23 15:40 36.2 C L 59 L 18 133/74 98 Nasal Cannula 08/08/23 15:32 62 08/08/23 14:42 93 08/08/23 13:51 66 08/08/23 11:47 36.8 C 55 L 18 117/62 98 Nasal Cannula 08/08/23 09:28 61 08/08/23 08:15 Nasal Cannula 08/08/23 07:44 36.5 C 59 L 18 133/63 95 Nasal Cannula O2 Flow Rate 08/08/23 16:35 08/08/23 15:40 4 08/08/23 15:32 08/08/23 14:42 08/08/23 13:51 08/08/23 11:47 4 08/08/23 09:28 08/08/23 08:15 4 08/08/23 07:44 4 Laboratory Results Short CBC 08/08/23 Range/Units 05:55 WBC 4.95 (4.8-10.8) K/ul Hgb 12.0 (12.0-16.0) g/dl Hct 38.0 (37.0-47.0) % Plt Count 66 L (130-400) K/uL BMP 08/08/23 05:55 Sodium 134 L Potassium 4.4 D Chloride 96 L Carbon Dioxide 30 BUN 36 H Creatinine 2.17 H D Glucose 139 H Calcium 8.2 L Liver Function 08/08/23 Range/Units 05:55 Total Bilirubin 0.7 (0.2-1.0) mg/dl AST 29 (13-39) U/L ALT 17 (7-52) U/L Alkaline Phosphatase 58 (34-104) U/L Albumin 3.5 (3.4-5.0) gm/dl Medications Administered Home Medications Medication Instructions Recorded Confirmed Last Taken amlodipine 10 mg tablet 5 mg PO QAM 12/31/18 08/05/23 11/21/22 meclizine 25 mg chewable tablet 25 mg PO TID PRN Anxiety 12/31/18 08/05/23 08/04/23 19:00 isosorbide dinitrate 20 mg tablet 20 mg PO TID 05/29/19 08/05/23 08/04/23 19:00 metoprolol succinate 25 mg 12.5 mg PO QAM 05/29/19 08/05/23 08/04/23 08:00 tablet,extended release 24 hr simvastatin 20 mg tablet 20 mg PO HS 05/29/19 08/05/23 08/04/23 18:00 vit C 250 mg-vit E 90 mg-zinc 40 1 tab PO BID 05/29/19 08/05/23 08/04/23 19:00 mg-copper 1 [id number] capsule (PreserVision AREDS-2) ondansetron 4 mg disintegrating 4 - 8 mg PO Q8H PRN Nausea 05/16/20 08/05/23 10/04/22 tablet docusate sodium 100 mg capsule 100 mg PO QAM 08/04/21 08/05/23 11/21/22 (Colace) mirtazapine 15 mg disintegrating 15 mg PO HS 08/04/21 08/05/23 08/04/23 19:00 tablet (Remeron SolTab) polyethylene glycol 3350 17 gram 17 g PO DAILY PRN Constipation 08/04/21 08/05/2323 08:00 oral powder packet (Miralax) aspirin 81 mg tablet,delayed 81 mg PO QAM 10/29/21 08/05/23 11/22/22 07:00 release ergocalciferol (vitamin D2) 1,250 50,000 unit PO WK 10/29/21 08/05/23 08/04/23 08:46 mcg (50,000 unit) capsule hydrocodone 5 mg-acetaminophen 325 1 tab PO Q8 PRN Pain 10/29/21 08/05/23 11/21/22 mg tablet nystatin 100,000 unit/gram topical 1 applic topical TID PRN irritation 10/29/21 08/05/23 11/21/22 powder zolpidem 5 mg tablet (Ambien) 5 mg PO HS PRN Sleep 10/29/21 08/05/23 08/04/23 19:00 albuterol sulfate 0.63 mg/3 mL 0.63 mg inhalation Q4H PRN sob 09/27/22 08/05/23 10/04/22 solution for nebulization fluoxetine 10 mg tablet 10 mg PO QAM 09/27/22 08/05/23 08/04/23 12:00 furosemide 20 mg tablet 20 mg PO 3XWK 09/27/22 08/05/23 08/03/23 omeprazole 20 mg capsule,delayed 20 mg PO BID #60 caps 10/05/22 08/05/23 08/04/23 19:00 release fluticasone fur. 100 mcg-umeclid 1 inh inhalation QAM #60 ea 01/26/23 08/05/23 08/04/23 08:00 62.5 mcg-vilant 25 mcg inhalat.powder (Trelegy Ellipta) albuterol sulfate 90 mcg/actuation 2 inh inhalation QID PRN shortness 05/29/23 08/05/23 Unknown aerosol inhaler (Ventolin HFA) of breath or wheezing #18 grams Active Medications Generic Name Dose Route Start Last Admin Trade Name Freq PRN Reason Stop Dose Admin Acetaminophen 650 mg 08/05/23 08:19 08/07/23 07:40 Acetaminophen 325 Mg Tab PO 09/04/23 08:18 650 mg Q4H PRN Administration Pain or Fever Hydrocodone Bitart/Acetaminophen 1 tab 08/05/23 14:00 08/07/23 20:23 Hydrocodone/Acetamophen 5/325mg Tab PO 08/19/23 13:59 1 tab Q8 PRN Administration Pain Albuterol 2 puffs 08/05/23 14:00 08/06/23 06:18 Albuterol Hfa 8 Gm Inhaler INH 09/04/23 13:59 2 puffs QID PRN Administration shortness of breath or wheezing Apixaban 5 mg 08/07/23 09:30 08/08/23 08:19 Apixaban 5 Mg Tablet PO 09/06/23 09:29 5 mg BID TONG Administration Aspirin 81 mg 08/05/23 14:30 08/08/23 08:18 Aspirin 81 Mg Ectab PO 09/04/23 14:29 81 mg QAM TONG Administration Atorvastatin Calcium 10 mg 08/07/23 21:00 08/07/23 20:24 Atorvastatin 10 Mg Tab PO 09/06/23 20:59 10 mg HS TONG Administration Docusate Sodium 100 mg 08/06/23 09:00 08/08/23 08:26 Docusate Sodium 100 Mg Cap PO 09/05/23 08:59 100 mg QAM TONG Administration Ergocalciferol 50,000 units 08/06/23 09:00 08/06/23 07:33 Ergocalciferol 50,000 Units 1250 Mcg Cap PO 09/05/23 08:59 50,000 units Mo@0900 TONG Administration Fluoxetine HCl 10 mg 08/05/23 14:30 08/08/23 08:19 Fluoxetine Hcl 10 Mg Cap PO 09/04/23 14:29 10 mg QAM TONG Administration Fluticasone Furoate 1 puffs 08/05/23 14:30 08/08/23 08:20 Fluticasone Furoate 100mcg 14 Puffs/Inhaler INH 09/04/23 14:29 1 puffs QAM TONG Administration Furosemide 20 mg 08/06/23 09:00 08/06/23 07:33 Furosemide 20 Mg Tab PO 09/05/23 08:59 20 mg MoWeFr@0900 TONG Administration Doxycycline Hyclate 100 mg/ 100 mls @ 50 mls/hr 08/07/23 09:00 08/08/23 10:26 Dextrose IV 08/14/23 08:59 Infused Q12H TONG Infusion Amiodarone HCl/Dextrose 360 mg in 200 mls @ 16.667 mls/hr 08/07/23 15:00 08/08/23 11:18 Nexterone / D5w IV 09/06/23 14:59 0.5 mg/min .Q12H TONG 16.7 mls/hr Administration 0.5 MG/MIN Ceftriaxone Sodium 2,000 mg/ 50 mls @ 100 mls/hr 08/07/23 16:00 08/08/23 17:05 Dextrose IV 08/14/23 15:59 Infused Q24H TONG Infusion Protocol Isosorbide Dinitrate 20 mg 08/05/23 14:30 08/07/23 07:41 Isosorbide Dinitrate 20 Mg Tab PO 09/04/23 14:29 20 mg TID TONG Administration Melatonin 3 mg 08/05/23 20:01 08/06/23 20:06 Melatonin 3 Mg Tab PO 09/04/23 20:00 3 mg HS PRN Administration Sleep Metoprolol Tartrate 12.5 mg 08/07/23 17:00 08/08/23 16:35 Metoprolol Tartrate 25 Mg Tab PO 09/06/23 16:59 12.5 mg QID TONG Administration Mirtazapine 15 mg 08/05/23 21:00 08/07/23 20:22 Mirtazapine Soltab 15 Mg PO 09/04/23 20:59 15 mg HS TONG Administration Pantoprazole Sodium 40 mg 08/05/23 21:00 08/08/23 08:17 Pantoprazole 40 Mg Tab PO 09/04/23 20:59 40 mg BID TONG Administration Umeclidinium/Vilanterol 1 puffs 08/05/23 14:30 08/08/23 10:59 Umeclidinium/Vilanterol 62.5/25mcg 7 Puffs/Inhaler INH 09/04/23 14:29 1 puffs QAM TONG Administration (1) Pneumonia Pneumonia type: due to unspecified organism Laterality: right Lung location: lower lobe of lung Qualified Code(s): J18.9 - Pneumonia, unspecified organism
[2023-08-08] MEDS: MIRTAZAPINE SOLTAB 15 MG PO SCH (21:00)
[2023-08-08] MEDS: ATORVASTATIN 10 MG TAB PO SCH (21:01)
[2023-08-08] MEDS: guaiFENesin 600 MG TABCR PO SCH (21:01)
[2023-08-08] MEDS: HYDROCODONE/ACETAMOPHEN 5/325MG TAB PO PRN (21:19)
--- NOTE | 2023-08-08 23:02 | Electrocardiogram Report ---
Test Reason : Blood Pressure : / mmHG Vent. Rate : 157 BPM Atrial Rate : 000 BPM P-R Int : 000 ms QRS Dur : 124 ms QT Int : 258 ms P-R-T Axes : 000 -26 170 degrees QTc Int : 417 ms Atrial fibrillation with rapid ventricular response Left bundle branch block Abnormal ECG When compared with ECG of 05-AUG-2023 05:37, Atrial fibrillation has replaced Sinus rhythm Confirmed by Sylvester Denney ([id number]) on 08/08/2023 11:02:18 PM Referred By: REFERRED SELF Confirmed By:Sylvester Denney
--- NOTE | 2023-08-09 05:32 | Electrocardiogram Report ---
Test Reason : Blood Pressure : / mmHG Vent. Rate : 073 BPM Atrial Rate : 073 BPM P-R Int : 216 ms QRS Dur : 126 ms QT Int : 390 ms P-R-T Axes : 069 -25 136 degrees QTc Int : 429 ms Sinus rhythm with 1st degree A-V block Left bundle branch block Abnormal ECG When compared with ECG of 05-AUG-2023 16:23, Sinus rhythm has replaced Atrial fibrillation Vent. rate has decreased BY 84 BPM Confirmed by Sylvester Denney ([id number]) on 08/09/2023 5:31:58 AM Referred By: REFERRED SELF Confirmed By:Sylvester Denney
--- NOTE | 2023-08-09 06:26 | Electrocardiogram Report ---
Test Reason : Blood Pressure : / mmHG Vent. Rate : 181 BPM Atrial Rate : 170 BPM P-R Int : 000 ms QRS Dur : 124 ms QT Int : 278 ms P-R-T Axes : 000 -41 169 degrees QTc Int : 482 ms Atrial fibrillation with rapid ventricular response Left axis deviation Left bundle branch block Abnormal ECG When compared with ECG of 06-AUG-2023 08:23, Atrial fibrillation has replaced Sinus rhythm Vent. rate has increased BY 108 BPM Confirmed by Sylvester Denney ([id number]) on 08/09/2023 6:25:35 AM Referred By: REFERRED SELF Confirmed By:Sylvester Denney
[2023-08-09 06:46] LABS: Hematocrit (blood only) 40.3 % (37.0-47.0); Hemoglobin 12.3 g/dl (12.0-16.0); Mean Corpuscular Hemoglobin 29.2 pg (25.0-34.0); Mean Corpuscular Hgb Conc 30.5 g/dL (32.0-36.0); Mean Corpuscular Volume 95.7 fL (80.0-100.0); Mean Platelet Volume 12.7 fL (9.4-12.4); Platelet Count 101 K/uL (130-400); RDW Coefficient of Variation 14.3 % (11.5-14.5); Red Blood Count 4.21 M/uL (4.20-5.40); White Blood Count 6.52 K/ul (4.8-10.8)
[2023-08-09 07:07] LABS: BUN Creatinine Ratio 15.5 (10-20); Calcium 8.7 mg/dl (8.6-10.3); Creatinine Clr Calc Pharmacy 14.9 ml/min; Est GFR (African American) 18.1 ml/min; Est GFR (Non-African American) 15.7 ml/min; Magnesium 2.5 mg/dl (1.7-2.4); Phosphorus 3.1 mg/dl (2.5-4.9); Potassium 3.9 mmol/L (3.5-5.1)
--- NOTE | 2023-08-09 07:31 | Electrocardiogram Report ---
Test Reason : Blood Pressure : / mmHG Vent. Rate : 060 BPM Atrial Rate : 060 BPM P-R Int : 208 ms QRS Dur : 140 ms QT Int : 452 ms P-R-T Axes : 086 -30 153 degrees QTc Int : 452 ms Normal sinus rhythm Left axis deviation Left bundle branch block Abnormal ECG When compared with ECG of 07-AUG-2023 08:30, Sinus rhythm has replaced Atrial fibrillation Vent. rate has decreased BY 121 BPM Confirmed by Sylvester Denney ([id number]) on 08/09/2023 7:30:56 AM Referred By: REFERRED SELF Confirmed By:Sylvester Denney
[2023-08-09] MEDS ORDERED: LACTATED RINGER'S 500 ML IV ONE (08:18)
--- NOTE | 2023-08-09 08:25 | Hospitalist Progress Note ---
Date of Service August 09, 2023 Assessment & Plan (1) Pneumonia: Plan Ms. Makenna Harris is an 88 year old woman with significant history of COPD (not on oxygen at home), ex-smoking, TAVR, CAD, HTN, HLD, CKD IIIb, L THR (done twice) and intermittent aspiration who presented on 08/05 due to SOB and fall and found to have sepsis, thought to be secondary to RLL pneumonia. She is being managed for the following: #Acute kidney injury on CKD IIIa/b -likely prerenal initially, ?ATN iso hypotension due to sepsis -Urine lytes/cr/urea -Nephrology consult -Hold nephrotoxic agents -Gentle fluid bolus, trend bmp #Sepsis, secondary to the following *resolved #Right lower lobe pneumonia #Anaplasmosis Respiratory viral screen negative. speech evaled, neg for aspiration. Admitting temperature/respiratory rate elevated, patient was hypoxic on room air [see HPI, does not use home O2] at presentation. Admitting CXR with right basilar atelectasis CT chest w/ mild pul edema and small bibasilar opacities Patient received Zosyn in the ED, c/w it 08/05 --> still febrile --->doxy added 08/07 --> tick borne serology sent --> anaplasma came back +ve 08/07 Continue rocephin 08/07 for concerns of CAP. Continue doxycyline 200mg bid Follow up infectious work up Infectious disease following, appreciate recommendations #Acute thrombocytopenia *improving likely secondary to anaplasmosis/sepsis Trend CBC, #Acute hypoxic respiratory failure, multifactorial #COPD #Former Smoker -O2 requirement iso ?pneumonia and COPD -Continue home inhalers -Scheduled guaifenesin and flutter valve #Paroxysmal atrial fibrillation: #Calcific aortic stenosis, status post TAVR Pt went in afib rvr evening of 08/05/23. Has h/o such, was on coumadin which was dc'd due to rec falls per pt's . Didn't receive her AM metoprolol on the day of admission due to "delay issues", went into afib around 420pm, received iv metoprolol 5 mg x q5m x 3 followed by diltiazem drip. Care was coordinated w/ cardio. Heparin drip was started due to elevated troponin/afib rvr --> on eliquis now. Was back to sinus rhythm and cardizem drip was dc'd. Again went in Afib rvr 08/07 am ---> pt started on amiodarone drip/diltiazem drip/qid metoprolol Cardio following: -NSR now, dilt drip discontinued -Continue meotprolol 12.5 mg QID -Continue eliquis 5mg bid -Replace lytes prn -Continue amio drip #Mild nonobstructive CAD per cardiac catheterization 01/27/2019 #Left bundle branch block noted post TAVR 05/27/2019 #Chronic heart failure with preserved ejection fraction (HFpEF): -On Lasix 20 mg MWF at home #Elevated trop: likely demand ischemia 2/2 illness excerbated afib rvr. Trop flat trended as her heart rate improved. Pt w/ no chest pain now, continue telemetry monitoring.. DVT prophylaxis: on eliquis CODE STATUS: DNR/DNI Admission and Anticipated Discharge Date Admission Date: August 05, 2023 Subjective NAEO sitting in bedside chair, denies any acute concerns Review of Systems Review of Systems: All systems reviewed & are unremarkable except as noted in Subjective Physical Exam Constitutional: WD/WN, vitals as above Respiratory: normal respiratory effort, lungs clear to auscultation Cardiovascular: RRR, no murmur, no edema Results & Data Results & Data Vital Signs (Past 12 Hours) Vital Signs Temp Pulse Pulse Resp BP BP Pulse Ox 08/09/23 04:18 37.1 C 63 20 144/75 H 94 08/08/23 22:29 36.9 C 66 18 133/61 95 08/08/23 21:59 59 L 08/08/23 20:55 64 14 133/61 98 O2 Del Method O2 Flow Rate 08/09/23 04:18 Nasal Cannula 1.0 08/08/23 22:29 Nasal Cannula 3.0 08/08/23 21:59 08/08/23 20:55 Room Air 2 Laboratory Results Short CBC 08/09/23 Range/Units 06:05 WBC 6.52 (4.8-10.8) K/ul Hgb 12.3 (12.0-16.0) g/dl Hct 40.3 (37.0-47.0) % Plt Count 101 L D (130-400) K/uL BMP 08/09/23 06:05 Sodium 136 Potassium 3.9 Chloride 98 Carbon Dioxide 30 BUN 41 H Creatinine 2.64 H D Glucose 113 H Calcium 8.7 Cardiac Enzymes 08/09/23 Range/Units 06:05 Total Creatine Kinase 337 H (26-192) U/L Medications Administered Home Medications Medication Instructions Recorded Confirmed Last Taken amlodipine 10 mg tablet 5 mg PO QAM 12/31/18 08/05/23 11/21/22 meclizine 25 mg chewable tablet 25 mg PO TID PRN Anxiety 12/31/18 08/05/23 08/04/23 19:00 isosorbide dinitrate 20 mg tablet 20 mg PO TID 05/29/19 08/05/23 08/04/23 19:00 metoprolol succinate 25 mg 12.5 mg PO QAM 05/29/19 08/05/23 08/04/23 08:00 tablet,extended release 24 hr simvastatin 20 mg tablet 20 mg PO HS 05/29/19 08/05/23 08/04/23 18:00 vit C 250 mg-vit E 90 mg-zinc 40 1 tab PO BID 05/29/19 08/05/23 08/04/23 19:00 mg-copper 1 [id number] capsule (PreserVision AREDS-2) ondansetron 4 mg disintegrating 4 - 8 mg PO Q8H PRN Nausea 05/16/20 08/05/23 10/04/22 tablet docusate sodium 100 mg capsule 100 mg PO QAM 08/04/21 08/05/23 11/21/22 (Colace) mirtazapine 15 mg disintegrating 15 mg PO HS 08/04/21 08/05/23 08/04/23 19:00 tablet (Remeron SolTab) polyethylene glycol 3350 17 gram 17 g PO DAILY PRN Constipation 08/04/21 08/05/23 08/04/23 08:00 oral powder packet (Miralax) aspirin 81 mg tablet,delayed 81 mg PO QAM 10/29/21 08/05/23 11/22/22 07:00 release ergocalciferol (vitamin D2) 1,250 50,000 unit PO WK 10/29/21 08/05/23 08/04/23 08:46 mcg (50,000 unit) capsule hydrocodone 5 mg-acetaminophen 325 1 tab PO Q8 PRN Pain 10/29/21 08/05/23 11/21/22 mg tablet nystatin 100,000 unit/gram topical 1 applic topical TID PRN irritation 10/29/21 08/05/23 11/21/22 powder zolpidem 5 mg tablet (Ambien) 5 mg PO HS PRN Sleep 10/29/21 08/05/23 08/04/23 19:00 albuterol sulfate 0.63 mg/3 mL 0.63 mg inhalation Q4H PRN sob 09/27/22 08/05/23 10/04/22 solution for nebulization fluoxetine 10 mg tablet 10 mg PO QAM 09/27/22 08/05/23 08/04/23 12:00 furosemide 20 mg tablet 20 mg PO 3XWK 09/27/22 08/05/23 08/03/23 omeprazole 20 mg capsule,delayed 20 mg PO BID #60 caps 10/05/22 08/05/23 08/04/23 19:00 release fluticasone fur. 100 mcg-umeclid 1 inh inhalation QAM #60 ea 01/26/23 08/05/23 08/04/23 08:00 62.5 mcg-vilant 25 mcg inhalat.powder (Trelegy Ellipta) albuterol sulfate 90 mcg/actuation 2 inh inhalation QID PRN shortness 05/29/23 08/05/23 Unknown aerosol inhaler (Ventolin HFA) of breath or wheezing #18 grams Active Medications Generic Name Dose Route Start Last Admin Trade Name Freq PRN Reason Stop Dose Admin Acetaminophen 650 mg 08/05/23 08:19 08/07/23 07:40 Acetaminophen 325 Mg Tab PO 09/04/23 08:18 650 mg Q4H PRN Administration Pain or Fever Hydrocodone Bitart/Acetaminophen 1 tab 08/05/23 14:00 08/08/23 21:19 Hydrocodone/Acetamophen 5/325mg Tab PO 08/19/23 13:59 1 tab Q8 PRN Administration Pain Albuterol 2 puffs 08/05/23 14:00 08/06/23 06:18 Albuterol Hfa 8 Gm Inhaler INH 09/04/23 13:59 2 puffs QID PRN Administration shortness of breath or wheezing Apixaban 5 mg 08/07/23 09:30 08/09/23 09:09 Apixaban 5 Mg Tablet PO 09/06/23 09:29 5 mg BID TONG Administration Aspirin 81 mg 08/05/23 14:30 08/09/23 09:10 Aspirin 81 Mg Ectab PO 09/04/23 14:29 81 mg QAM TONG Administration Atorvastatin Calcium 10 mg 08/07/23 21:00 08/08/23 21:01 Atorvastatin 10 Mg Tab PO 09/06/23 20:59 10 mg HS TONG Administration Docusate Sodium 100 mg 08/06/23 09:00 08/09/23 09:18 Docusate Sodium 100 Mg Cap PO 09/05/23 08:59 100 mg QAM TONG Administration Ergocalciferol 50,000 units 08/06/23 09:00 08/06/23 07:33 Ergocalciferol 50,000 Units 1250 Mcg Cap PO 09/05/23 08:59 50,000 units Mo@0900 TONG Administration Fluoxetine HCl 10 mg 08/05/23 14:30 08/09/23 09:10 Fluoxetine Hcl 10 Mg Cap PO 09/04/23 14:29 10 mg QAM TONG Administration Fluticasone Furoate 1 puffs 08/05/23 14:30 08/09/23 09:14 Fluticasone Furoate 100mcg 14 Puffs/Inhaler INH 09/04/23 14:29 1 puffs QAM TONG Administration Furosemide 20 mg 08/06/23 09:00 08/06/23 07:33 Furosemide 20 Mg Tab PO 09/05/23 08:59 20 mg MoWeFr@0900 TONG Administration Guaifenesin 600 mg 08/08/23 21:00 08/09/23 09:10 Guaifenesin 600 Mg Tabcr PO 09/07/23 20:59 600 mg Q12 TONG Administration Doxycycline Hyclate 100 mg/ 100 mls @ 50 mls/hr 08/07/23 09:00 08/09/23 09:20 Dextrose IV 08/14/23 08:59 50 mls/hr Q12H TONG Administration Amiodarone HCl/Dextrose 360 mg in 200 mls @ 16.667 mls/hr 08/07/23 15:00 08/09/23 09:18 Nexterone / D5w IV 09/06/23 14:59 0.5 mg/min .Q12H TONG 16.7 mls/hr Administration 0.5 MG/MIN Ceftriaxone Sodium 2,000 mg/ 50 mls @ 100 mls/hr 08/07/23 16:00 08/08/23 17:05 Dextrose IV 08/14/23 15:59 Infused Q24H TONG Infusion Protocol Isosorbide Dinitrate 20 mg 08/05/23 14:30 08/07/23 07:41 Isosorbide Dinitrate 20 Mg Tab PO 09/04/23 14:29 20 mg TID TONG Administration Melatonin 3 mg 08/05/23 20:01 08/06/23 20:06 Melatonin 3 Mg Tab PO 09/04/23 20:00 3 mg HS PRN Administration Sleep Metoprolol Tartrate 12.5 mg 08/07/23 17:00 08/09/23 09:11 Metoprolol Tartrate 25 Mg Tab PO 09/06/23 16:59 12.5 mg QID TONG Administration Mirtazapine 15 mg 08/05/23 21:00 08/08/23 21:00 Mirtazapine Soltab 15 Mg PO 09/04/23 20:59 15 mg HS TONG Administration Pantoprazole Sodium 40 mg 08/05/23 21:00 08/09/23 09:09 Pantoprazole 40 Mg Tab PO 09/04/23 20:59 40 mg BID TONG Administration Umeclidinium/Vilanterol 1 puffs 08/05/23 14:30 08/09/23 09:10 Umeclidinium/Vilanterol 62.5/25mcg 7 Puffs/Inhaler INH 09/04/23 14:29 1 puffs QAM TONG Administration (1) Pneumonia Laterality: right Lung location: lower lobe of lung Pneumonia type: due to unspecified organism Qualified Code(s): J18.9 - Pneumonia, unspecified organism
[2023-08-09] MEDS: APIXABAN 5 MG TABLET PO SCH (09:09)
[2023-08-09] MEDS: PANTOprazole 40 MG TAB PO SCH ×2 (09:09→20:18)
[2023-08-09] MEDS: FLUoxetine HCL 10 MG CAP PO SCH (09:10)
[2023-08-09] MEDS: guaiFENesin 600 MG TABCR PO SCH ×2 (09:10→20:18)
[2023-08-09] MEDS: ASPIRIN 81 MG ECTAB PO SCH (09:10)
[2023-08-09] MEDS: UMECLIDINIUM/VILANTEROL 62.5/25MCG 7 PUFFS/INHALER INH SCH (09:10)
[2023-08-09] MEDS: METOPROLOL TARTRATE 25 MG TAB PO SCH ×4 (09:11→20:18)
[2023-08-09] MEDS: FLUTICASONE FUROATE 100MCG 14 PUFFS/INHALER INH SCH (09:14)
[2023-08-09] MEDS: DOCUSATE SODIUM 100 MG CAP PO SCH (09:18)
[2023-08-09] MEDS: AMIODARONE / D5W 360 MG/200 ML BAG IV SCH ×2 (09:18→21:17)
[2023-08-09] MEDS: DOXYCYCLINE HYCLATE 100 MG in DEXTROSE 5% MINI-B 100 ML IV SCH ×2 (09:20→20:17)
--- NOTE | 2023-08-09 10:31 | XRay Report ---
XR chest 2V PA/lateral CLINICAL HISTORY: follow up CHF TECHNIQUE: 2 views of the chest were obtained. Comparison: Comparison is made to chest radiograph 08/07/2023 FINDINGS: No lines and tubes are seen. Cardiomegaly is noted. The aortic arch is calcified. Prominence and ceph alization of the vasculature is seen. Airspace opacities in the right lung base. Small bilateral pleu ral effusions are seen. IMPRESSION: 1. Cardiomegaly and mild pulmonary edema. 2. Small bilateral pleural effusions. 3. Airspace opacity in the right lung base may represent atelectasis, pneumonia, and/or aspiration. ACT 112: Negative or not required by law. Electronically signed by: Kyle Leavitt M.D. 08/09/2023 10:29 AM
--- NOTE | 2023-08-09 11:31 | Cardiology Progress Note ---
Date of Service August 09, 2023 Assessment & Plan (1) Right lower lobe pneumonia: (2) Hypoxia: Plan: -RLL pneumonia with hypoxia -Patient is a former smoker with COPD. (3) Paroxysmal atrial fibrillation: (4) S/P TAVR (transcatheter aortic valve replacement): Plan: Calcific aortic stenosis, status post TAVR on 05/16/2019 with a # 23 mm Adlridge Brice S3 valve (5) Left bundle branch block: Plan: -Left bundle branch block noted post TAVR 05/27/2019 -Preserved LV systolic function, repeat echo pending. (6) Coronary artery disease: Plan: -Mild nonobstructive CAD per cardiac catheterization 01/27/2019 -Stable, no angina. (7) Chronic heart failure with preserved ejection fraction (HFpEF): Plan: -Chronic diastolic CHF, NYHA class 3 -On Lasix 20 mg MWF at home Plan IMPRESSION: Medically complex 88-year-old female who presented to [facility] emergency department due to shortness of breath and weakness, found to have right lower lobe pneumonia and was started on IV antibiotics. Also found to have new onset atrial fibrillation atrial fibrillation with RVR on 08/05/2023 around 4:20 PM. Initially treated with IV metoprolol and diltiazem. Started on heparin for stroke prevention. Self converted back to NSR with a 3.5 second conversion pause around 04:17am (08/06/2023)-- asymptomatic. Diltiazem discontinued. High risk of CVA with PAF due to elevated [id number] score of 8 (age 3, female, HTN, CAD, CHF, TIA 2)-- however does carry a history of a traumatic subarachnoid hemorrhage following a fall where she hit her head off of a corner of a counter in the setting of dual antiplatelet therapy with aspirin and Plavix. Symptomatic paroxysmal atrial fibrillation in sinus rhythm Left bundle branch block, preserved LVEF, pre-TAVR with normal valvular indices Febrile illness, possible pneumonia versus anaplasmosis MISAEL CXR this am consistent with mild pulmonary edema Creatinine has trending up 1.21-->1.35-->2.17-->2.64 mg/dl. The initial increase was after a day of prolonged AF with RVR, suspect this was due to hypoperfusion resultant ATN. Held diuretics on 08/08. Proceed with furosemide 20 mg IV x 1 08/09/23. Reduce dose of Eliquis to 2.5 mg BID. Continue IV amiodarone load Continue metoprolol tartrate 12.5 mg PO QID. Simvastatin changed to atorvastatin given amiodarone administration. Isosorbide dinitrate on hold. Admission and Anticipated Discharge Date Admission Date: August 05, 2023 Subjective Pt seen in cardiology follow up. Remains in sinus rhythm on amiodarone infusion. Physical Exam Constitutional: no acute distress Neck: normal visual inspection and trachea midline Respiratory: + cough and + tripod positioning; no lab ored breathing and not tachypneic Auscultation: + diminished lung sounds, + rales, + rhonchi and + wheezes Cardiovascular: Rate/Rhythm: regular rate, regular rhythm, + tachycardic and + irregularly irregular Heart Sounds: normal S1, normal S2 and + murmur (1/6 sm) Vessels: no JVD Extremities: no edema Gastrointestinal (Abdomen): normal bowel sounds, soft, nontender, no hepatosplenomegaly Skin: no rashes, warm and dry no dry skin Neurologic: PERRL, EOMI, accommodation nl, no face palsy, no dysarthria Psychiatric: A+Ox3, euthymic affect Orientation: alert and oriented x 3 Results & Data Vital Signs (Past 12 Hours) Vital Signs Temp Pulse Resp BP Pulse Ox O2 Del Method O2 Flow Rate 08/09/23 04:18 37.1 C 63 20 144/75 H 94 Nasal Cannula 1.0 Laboratory Results CBC 08/09/23 Range/Units 06:05 WBC 6.52 (4.8-10.8) K/ul RBC 4.21 (4.20-5.40) M/uL Hgb 12.3 (12.0-16.0) g/dl Hct 40.3 (37.0-47.0) % Plt Count 101 L D (130-400) K/uL Comprehensive Metabolic Panel 08/09/23 Range/Units 06:05 Sodium 136 (136-145) mmol/L Potassium 3.9 (3.5-5.1) mmol/L Chloride 98 (98-107) mmol/L Carbon Dioxide 30 (21-32) mmol/L BUN 41 H (6-23) mg/dl Creatinine 2.64 H D (0.6-1.2) mg/dl Glucose 113 H (70-99(Fasting)) mg/dl Calcium 8.7 (8.6-10.3) mg/dl Intake and Output 08/08/23 08/09/23 08/09/23 22:59 06:59 14:59 Intake Total 223.402 / 616.844 100 / 616.844 693.998 / 693.998 Output Total 1 / 501 500 / 501 Balance 222.402 / 115.844 -400 / 115.844 693.998 / 693.998 Intake: IV 223.402 / 616.844 100 / 616.844 693.998 / 693.998 Amiodarone / D5w 360 mg In 200 173.402 / 366.844 193.998 / 193.998 ml @ 0.5 MG/MIN 16.667 mls/hr IV .Q12H [facility] Rx#:[id number] Doxycycline Hyclate 100 mg In 100 / 200 Dextrose 5% Mini-B 100 ml @ 50 mls/hr IV Q12H [facility] Rx#:[id number] Lactated Ringer's 500 ml @ 999 500 / 500 mls/hr IV .Q31M [facility] Rx#: [id number] cefTRIAXone SODIUM 2,000 mg In 50 / 50 Dextrose 5 % Mini-B 50 ml @ 100 mls/hr IV Q24H [facility] Rx#: [id number] Output: Urine 500 / 500 # Bowel Movements 1 / 1 Other: Other Intake Source SIPS # Unmeasured Voids 1 # Urine Diapers 1 Weight 74.6 kg Weight Measurement Method Built in [facility] Diagnostic Findings EKG performed today, 08/09/2023 is a 17 a.m. and interpreted independently: Sinus rhythm at 64 bpm, first-degree AV block, MI interval 200 ms, left bundle branch block, QRS duration 142 ms. (1) Right lower lobe pneumonia Pneumonia type: due to unspecified organism Qualified Code(s): J18.9 - Pneumonia, unspecified organism (6) Coronary artery disease Associated angina: without angina Coronary Disease-Associated Artery/Lesion type: [place] artery [place] vs. transplanted heart: [place] heart Qualified Code(s): I25.10 - Atherosclerotic heart disease of [place] coronary artery without angina pectoris
[2023-08-09] MEDS ORDERED: FUROSEMIDE INJ 20 MG/2 ML VIAL IV ONE (11:40)
--- NOTE | 2023-08-09 11:48 | Communication Note ---
Date of Service: August 09, 2023 I called pt's spouse and provided him updates.
--- NOTE | 2023-08-09 12:02 | Nephrology Consultation ---
Date of Consultation August 09, 2023 Assessment & Plan (1) MISAEL (acute kidney injury): In an 88-year-old female with extensive cardiopulmonary diseases at baseline, current rise of creatinine is totally expected given significant hemodynamic changes in the last few days--- especially multiple episodes of hypoxia as well as hypotension rapid heart rate/A-fib. As a result her kidneys has not been able to cope with all this difficulty and as a result now has acute tubular necrosis with a rising creatinine. She is making urine but I do not know how much and would be worthwhile to know if possible. Based on her clinical situation and the chest x-ray finding she is not volume depleted and I would not give IV fluid. I would give her Lasix. She did receive 20 mg IV Lasix earlier. At this point she is on room air and does not appear to be in overt clinical distress so no need of more Lasix today. If her blood pressure drops consider adding vasopressor while being considerate of her issues with A-fib/RVR. No further workup is needed for acute renal failure as the etiology is clinically obvious. At this point since we do not know how much worse her kidney is going to get it is hard to predict the prognosis. (2) Right lower lobe pneumonia: Primary reason for admission associated with respiratory failure with hypoxia sepsis and issues with hypotension. Currently on ceftriaxone and Doxy --neither of which is nephrotoxic (3) Paroxysmal atrial fibrillation: Still with ongoing issues with A-fib/RVR with hypotension. Cardiology following closely (4) Chronic heart failure with preserved ejection fraction (HFpEF): 52 Mins spent in total. History of Present Illness Reason for Consultation: MISAEL Attending Physician: Brittanie Cleary MD History of Present Illness 88/F with multiple chronic medical problems and has been in the hospital for the last few days. She had right lower lobe pneumonia with sepsis with hypoxia. Hospital course also complicated by A-fib with rapid ventricular response and associated hypotension. Creatinine has been steadily rising for the last few days. He has had multiple situation in the last few days but her blood pressure has been too low and even code purple has been called. She had chest x-ray done earlier today and showed some degree of pulmonary edema and has received 20 mg of IV Lasix earlier today through cardiology. Creatinine was 1.2 three days ago and since then has steadily gone up and is 2.6 today. She is making urine but it is not being measured accurately. She is currently getting IV ceftriaxone and Doxy for antibiotic. Review of system----as detailed in HPI. Unless stated otherwise 12 system reviewed and negative Physical Exam Constitutional: no acute distress. On RA 98% Neck: Supple. No JVD Respiratory: + cough; no labored breathing Auscultat ion: Decreased breath sound occasional rhonchi's and crackles Cardiovascular: + tachycardic and + irregularly irregular + murmur (1/6 sm) no JVD no edema Gastrointestinal (Abdomen): normal bowel sounds, soft, nontender, Skin: no rashes, warm and dry no dry skin Neurologic: Awake and alert x 3 normal speech Psychiatric: Normal affect Allergies Allergy/AdvReac Type Severity Reaction Status Date / Time atenolol Allergy Intermediate RASH AND Verified 12/05/22 13:33 ITCHING-TAKES TOPROL-XL AT HOME Sulfa (Sulfonamide Allergy Mild "SULFA Verified 12/05/22 13:33 Antibiotics) DRUGS": UNKNOWN lisinopril AdvReac Intermediate COUGH Verified 12/05/22 13:33 Home Medications Medication Instructions Recorded Confirmed Type amlodipine 10 mg tablet 5 mg PO QAM 12/31/18 08/05/23 History meclizine 25 mg chewable tablet 25 mg PO TID PRN Anxiety 12/31/18 08/05/23 History isosorbide dinitrate 20 mg tablet 20 mg PO TID 05/29/19 08/05/23 History metoprolol succinate 25 mg 12.5 mg PO QAM 05/29/19 08/05/23 History tablet,extended release 24 hr simvastatin 20 mg tablet 20 mg PO HS 05/29/19 08/05/23 History vit C 250 mg-vit E 90 mg-zinc 40 1 tab PO BID 05/29/19 08/05/23 History mg-copper 1 [id number] capsule (PreserVision AREDS-2) ondansetron 4 mg disintegrating 4 - 8 mg PO Q8H PRN Nausea 05/16/20 08/05/23 History tablet docusate sodium 100 mg capsule 100 mg PO QAM 08/04/21 08/05/23 History (Colace) mirtazapine 15 mg disintegrating 15 mg PO HS 08/04/21 08/05/23 History tablet (Remeron SolTab) polyethylene glycol 3350 17 gram 17 g PO DAILY PRN Constipation 08/04/21 08/05/23 History oral powder packet (Miralax) aspirin 81 mg tablet,delayed 81 mg PO QAM 10/29/21 08/05/23 History release ergocalciferol (vitamin D2) 1,250 50,000 unit PO WK 10/29/21 08/05/23 History mcg (50,000 unit) capsule hydrocodone 5 mg-acetaminophen 325 1 tab PO Q8 PRN Pain 10/29/21 08/05/23 History mg tablet nystatin 100,000 unit/gram topical 1 applic topical TID PRN irritation 10/29/21 08/05/23 History powder zolpidem 5 mg tablet (Ambien) 5 mg PO HS PRN Sleep 10/29/21 08/05/23 History albuterol sulfate 0.63 mg/3 mL 0.63 mg inhalation Q4H PRN sob 09/27/22 08/05/23 History solution for nebulization fluoxetine 10 mg tablet 10 mg PO QAM 09/27/22 08/05/23 History furosemide 20 mg tablet 20 mg PO 3XWK 09/27/22 08/05/23 History omeprazole 20 mg capsule,delayed 20 mg PO BID #60 caps 10/05/22 08/05/23 Rx release fluticasone fur. 100 mcg-umeclid 1 inh inhalation QAM #60 ea 01/26/23 08/05/23 Rx 62.5 mcg-vilant 25 mcg inhalat.powder (Trelegy Ellipta) albuterol sulfate 90 mcg/actuation 2 inh inhalation QID PRN shortness 05/29/23 08/05/23 Rx aerosol inhaler (Ventolin HFA) of breath or wheezing #18 grams Patient History Medical History Vertebral artery stenosis 75% stenosis of left vertebral artery per 05/30/2019 neck CTA Traumatic subarachnoid hemorrhage hx - 02/2021? Vertigo Coronary artery disease "diffuse minor CAD by cardiac catheterization 01/27/2019" per [facility] cardio note 06/29/2021 Hip dislocation, left currently in a brace Transient ischemic attack (TIA) possible per cardio note, 02/26/2021-negative CT and MRI imaging-on ASA per cardio with Plavix d/c due to subdural hematoma that subsequently resolved (cleared by neurosurgery [facility]) Macular degeneration Dyspnea Multiple pulmonary nodules determined by computed tomography of lung no further imaging needed given stability from 2019 per [facility] note 07/08/2021 Left bundle branch block chronic per [facility] cardio note-noted post TAVR 05/27/2019 per [facility] cardio note HTN (hypertension) controlled, stable per pt Dyslipidemia CKD (chronic kidney disease), stage III Osteoporosis COPD (chronic obstructive pulmonary disease) follows with [facility]m, on Trelegy Carotid stenosis 50-69% TONNY 03/12/2019 duplex per [facility] cardio GERD (gastroesophageal reflux disease) controlled, stable per pt Surgical History History of colonoscopy S/P revision of total hip left hip History of cardiac catheterization 05/15/2019 TAVR. 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 Bearden at [facility], 02/26/2021-normal gradient S/P tonsillectomy and adenoidectomy History of cataract surgery RT/LEFT H/O hernia repair RT INGUINAL HERNIA History of hysterectomy Family History Other No family history of adverse response to anesthesia Stroke Social History Smoking Status: Former smoker Second Hand Exposure: Yes (son smokes); Do You Dip or Chew Tobacco: No; Hx Alcohol Use: No Hx Substance Use: No Preferred Language: Nepali Communication Ability: Effective Nursery Manager Required: No Beliefs That Will Affect Care: None marital status: Current Living Situation: Spouse Other Information That Helps Us Care for You: No Feels Safe at Home: Yes Safety Concerns: Feels Safe At This Time Assistive Devices: Brace/Splint/Immobilizer, Cane, Glasses and Walker Results & Data Vital Signs (Past 12 Hours) Vital Signs Temp Pulse Pulse Resp BP BP Pulse Ox 08/09/23 11:53 36.6 C 58 L 18 117/63 98 08/09/23 08:00 65 08/09/23 08:00 08/09/23 04:18 37.1 C 63 20 144/75 H 94 O2 Del Method O2 Flow Rate 08/09/23 11:53 Room Air 08/09/23 08:00 08/09/23 08:00 Nasal Cannula 2 08/09/23 04:18 Nasal Cannula 1.0 Laboratory Results Laboratory test reviewed in chronological order for the admission as well as during the admission. Diagnostic Findings Chest x-ray (2) Right lower lobe pneumonia Pneumonia type: due to unspecified organism Qualified Code(s): J18.9 - Pneumonia, unspecified organism
--- NOTE | 2023-08-09 13:00 | Electrocardiogram Report ---
Test Reason : Blood Pressure : / mmHG Vent. Rate : 064 BPM Atrial Rate : 064 BPM P-R Int : 200 ms QRS Dur : 142 ms QT Int : 416 ms P-R-T Axes : 075 -29 153 degrees QTc Int : 429 ms Normal sinus rhythm Left bundle branch block Abnormal ECG When compared with ECG of 08-AUG-2023 06:32, (unconfirmed) No significant change was found Confirmed by Kahlil Burks ([id number]) on 08/09/2023 12:59:55 PM Referred By: REFERRED SELF Confirmed By:Kahlil Burks
[2023-08-09 15:02] LABS: Appearance Urine Clear (Clear); Bacteria Urine Automated Negative (Negative); Bilirubin Urine Negative (Negative); Blood Urine 3+ (Negative); Color Urine Yellow; Epithelial Cell Urine Auto 20-30 /lpf (0-5); Glucose Urine UA Negative (Negative); Ketones Urine Negative (Negative); Leukocyte Esterase Urine Negative (Negative); Nitrite Urine Negative (Negative); Protein Urine Trace (Negative); RBC Urine Automated >30 /hpf (0-4); Specific Gravity Urine 1.007 (1.000-1.030); Urobilinogen Urine Negative (Negative)
[2023-08-09 15:21] LABS: Creatinine Urine Random 18.7 mg/dl; Urine Potassium 7.5 mmol/L
[2023-08-09] MEDS: cefTRIAXone SODIUM 2,000 MG in DEXTROSE 5 % MINI-B 50 ML IV SCH (16:15)
[2023-08-09] MEDS: ATORVASTATIN 10 MG TAB PO SCH (20:18)
[2023-08-09] MEDS: MIRTAZAPINE SOLTAB 15 MG PO SCH (20:18)
[2023-08-09] MEDS: APIXABAN 2.5 MG TAB PO SCH (20:18)
[2023-08-09] MEDS: ALBUTEROL HFA 8 GM INHALER INH PRN (21:26)
[2023-08-09] MEDS: HYDROCODONE/ACETAMOPHEN 5/325MG TAB PO PRN (21:30)
[2023-08-09] MEDS: MELATONIN 3 MG TAB PO PRN (21:30)
[2023-08-09 22:57] LABS: Babesia microti DNA Not Detected (Not Detected)
[2023-08-10 06:28] LABS: Hematocrit (blood only) 39.4 % (37.0-47.0); Hemoglobin 12.3 g/dl (12.0-16.0); Mean Corpuscular Hemoglobin 29.5 pg (25.0-34.0); Mean Corpuscular Hgb Conc 31.2 g/dL (32.0-36.0); Mean Corpuscular Volume 94.5 fL (80.0-100.0); Mean Platelet Volume 12.4 fL (9.4-12.4); Platelet Count 138 K/uL (130-400); RDW Coefficient of Variation 14.5 % (11.5-14.5); RDW Standard Deviation 50.4 fL (36.4-46.3); Red Blood Count 4.17 M/uL (4.20-5.40); White Blood Count 7.16 K/ul (4.8-10.8)
[2023-08-10 06:54] LABS: BUN Creatinine Ratio 15.1 (10-20); Creatinine Clr Calc Pharmacy 15.5 ml/min; Est GFR (African American) 19.2 ml/min; Est GFR (Non-African American) 16.6 ml/min; Magnesium 2.3 mg/dl (1.7-2.4); Phosphorus 2.7 mg/dl (2.5-4.9); Potassium 3.7 mmol/L (3.5-5.1)
--- NOTE | 2023-08-10 07:47 | Cardiology Progress Note ---
Date of Service August 10, 2023 Assessment & Plan (1) Febrile illness: (2) Hypoxia: Plan: -RLL pneumonia with hypoxia -Patient is a former smoker with COPD. 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 (6) Coronary artery disease: Plan: -Mild nonobstructive CAD per cardiac catheterization 01/27/2019 -Stable, no angina. (7) Chronic heart failure with preserved ejection fraction (HFpEF): Plan: -Chronic diastolic CHF, NYHA class 3 -On Lasix 20 mg MWF at home Plan IMPRESSION: Medically complex 88-year-old female who presented to [facility] emergency department due to shortness of breath and weakness, found to have right lower lobe pneumonia and was started on IV antibiotics. Also found to have new onset atrial fibrillation atrial fibrillation with RVR on 08/05/2023 around 4:20 PM. Initially treated with IV metoprolol and diltiazem. Started on heparin for stroke prevention. Self converted back to NSR with a 3.5 second conversion pause around 04:17am (08/06/2023)-- asymptomatic. Diltiazem discontinued. High risk of CVA with PAF due to elevated [id number] score of 8 (age 3, female, HTN, CAD, CHF, TIA 2)-- however does carry a history of a traumatic subarachnoid hemorrhage following a fall where she hit her head off of a corner of a counter in the setting of dual antiplatelet therapy with aspirin and Plavix. PLAN: Atrial fibrillation: PAF >> NSR 0417 am on 08/05/2023 NSR >> AFIB with RVR 160-190s this am (08/07)- symptomatic with dyspnea and diaphoresis PAF ~0800 (08/07)>> NSR 23:53 (08/07) Now maintaining NSR * Remain on telemetry- transition IV amiodarone to oral amiodarone 200 mg BID with meals, turn off gtt with first dose of oral. Simvastatin changed to atorvastatin given amiodarone administration. Continue Metoprolol tartrate 12.5 mg QID-- pending clinical course will transition to succinate formulary prior to discharge. Continue Eliquis 5 mg BID. Replace electrolytes for a potassium goal of 4.0 and mag goal of 2.0 MISAEL noted--Creatinine has trending up 1.21-->1.35-->2.17-->2.64 >> 2.5 mg/dl. The initial increase was after a day of prolonged AF with RVR, suspect this was due to hypoperfusion resultant ATN. Held diuretics on 08/08. CXR with pulmonary edema 08/09-- given furosemide 20 mg IV x 1, 08/09/23. Continue reduced dose of Eliquis to 2.5 mg BID (due to age and renal function) Febrile illness>> RLL pneumonia versus anaplasmosis: Treatment per primary team-- IV antibiotics currently. Wean supplemental o2 as tolerate. Caution the use of IVF given underlying diastolic CHF. Blood cultures pending, preliminary no growth Hypotension: BP hypotensive with AFIB RVR, now improving. -Continue metoprolol -Hold Norvasc -Hold Isordil Case discussed with Dr. Singh-- will follow. I spent a total of 25 minutes on the date of service in preparation, delivery, and documentation of the care provided to this patient, excluding any time spent in the performance of separately billed services. Admission and Anticipated Discharge Date Admission Date: August 05, 2023 Supervising Physician Co-Signing Physician Notes Supervising Physician Attestation: I have personally performed a history and physical examination on the patient. I agree with the W[employer]OW [employer]ER's findings and plan as documented with the following additions. Subjective: Pt feeling a little better. Cough noted. Exam: Pulmonary: Lungs with decreased breath sounds at the bases bilaterally, mild rales Cardiovascular: 1/6 systolic murmur, no edema Data: Telemetry , SR in the 50-60s Echocardiogram:LVEF 50-55%, normal valvular indices Assessment and Plan: Acute HFpEF AF RVR to SR on amiodarone (new this admit) MISAEL Chronic LBBB h/o TAVR Febrile illness, pneumonia vs anaplasmosis -DC IV amiodarone and start oral amiodarone 200 mg BID , first dose now -Creat 2.5, furosemide 20 mg x 1 again today. I spent a total of 25 minutes on the date of service in preparation, delivery, and documentation of the care provided to this patient, excluding any time spent in the performance of separately billed services. Mark Singh, DO Subjective Medically complex 88-year-old female who presented to [facility] emergency department due to shortness of breath and weakness, found to have right lower lobe pneumonia and was started on IV antibiotics. Also found to have new onset atrial fibrillation atrial fibrillation with RVR on 08/05/2023 around 4:20 PM. Initially treated with IV metoprolol and diltiazem. Started on heparin for stroke prevention. 08/06/2023: IV diltiazem discontinued. IV fluids discontinued, given one-time dose of 20 mg of IV Lasix due to mild hypervolemia. Metoprolol succinate 12.5 milligrams daily continued. IV heparin for stroke prevention continued. Echocardiogram: Technically limited due to the to the patient having to sit upright. Patient was in sinus rhythm with a left bundle branch block during echocardiogram. LVEF 50 to 55% with moderate concentric LVH. Status post TAVR with stable gradients and no significant aortic regurgitation. Grade 1 diastolic dysfunction. 08/07/2023: Converted from NSR >> AFIB with RVR 160-190s (08/07)- symptomatic with dyspnea and diaphoresis-- Amiodarone bolus and gtt started with mild improvement in rates-- 120-140s Metoprolol succinate transitioned to metoprolol tartrate 12.5 mg QID IV heparin transitioned to Eliquis 5 mg BID x1 dose of 40 mg IV lasix Rates remained tachycardic in the afternoon-- Diltiazem gtt added back at 2.5 mg/hr, became hypotensive in the evening around 9:30pm, Diltiazem held. Digoxin IV 250 mcg given at 21:30 and a second dose at 23:19 Blood work suggestive of anaplasmosis-- ID consulted. 08/08/2023: Patient converted from AFIB RVR>>NSR with a LBBB at 23:53 (08/07) Amiodarone drip continued. Diltiazem drip discontinued due to hypotension Metoprolol tartrate 12.5 mg 4 times daily continued Eliquis 5 mg twice daily continue Acute kidney injury noted this morning with creatinine of 2.17 increased compared to admission level of 1.2 mg/dL--Lasix held. Patient with fever which is improved. Possible pneumonia, cytoplasmic neutrophilic inclusions noted suggestive of possible anaplasmosis infection, confirmatory test pending. Zosyn discontinued. Continue Rocephin, doxycycline, day 2 (08/08/2023). 08/09/2023: Chest x-ray consistent with patchy mild pulmonary edema. Creatinine has trending up 1.21-->1.35-->2.17-->2.64 mg/dl.--Patient was treated with furosemide 20 mg IV x 1 Eliquis reduced to 2.5 mg twice daily due to age and renal function IV amiodarone load continued--patient maintaining sinus rhythm Metoprolol tartrate continue 12.5 mg twice daily 08/06/2023: Upon entrance into the room patient resting in bed. Subjectively feels improved over the last 24 hours. No chest pain, shortness of breath improved. Mild orthopnea. No lower extremity edema. No palpitations or lightheadedness. Tele: SR with occasional PVCs 60s, No PAF Labs: Creatinine-- 1.21 >> 1.35 >> 2.17 >>2.64 >>2.52 I&O: +4.2L Weight: 75.1 kg >> 73.3 kg >> 74.2 kg >> 74.6 kg >>74.5 kg Review of Systems Review of Systems: All systems reviewed & are unremarkable except as noted in HPI & below Physical Exam Constitutional: WD/WN, vitals as above no acute distress Respiratory: no labored breathing, no cough and not tachypneic Auscultation: + diminished lung sounds and + wheezes Cardiovascular: Rate/Rhythm: regular rate and regular rhythm Heart Sounds: normal S1, normal S2 and + murmur (+2/6 systolic murmur) Vessels: no JVD Extremities: no edema Gastrointestinal (Abdomen): normal bowel sounds, soft, nontender, no hepatosplenomegaly Skin: no rashes, warm and dry no dry skin Neurologic: PERRL, EOMI, accommodation nl, no face palsy, no dysarthria Psychiatric: A+Ox3, euthymic affect Results & Data Vital Signs (Past 12 Hours) Vital Signs Temp Pulse Pulse Resp BP Pulse Ox O2 Del Method 08/10/23 04:00 36.6 C 63 18 144/75 H 93 Nasal Cannula 08/10/23 01:27 36.4 C L 59 L 18 127/69 95 Nasal Cannula 08/09/23 21:58 67 O2 Flow Rate 08/10/23 04:00 2.5 08/10/23 01:27 2.5 08/09/23 21:58 Laboratory Results CBC 08/10/23 Range/Units 05:36 WBC 7.16 (4.8-10.8) K/ul RBC 4.17 L (4.20-5.40) M/uL Hgb 12.3 (12.0-16.0) g/dl Hct 39.4 (37.0-47.0) % Plt Count 138 (130-400) K/uL Comprehensive Metabolic Panel 08/10/23 Range/Units 05:36 Sodium 137 (136-145) mmol/L Potassium 3.7 (3.5-5.1) mmol/L Chloride 99 (98-107) mmol/L Carbon Dioxide 32 (21-32) mmol/L BUN 38 H (6-23) mg/dl Creatinine 2.52 H (0.6-1.2) mg/dl Glucose 131 H (70-99(Fasting)) mg/dl Calcium 9.0 (8.6-10.3) mg/dl Intake and Output 08/09/23 08/10/23 08/10/23 22:59 06:59 14:59 Intake Total 690 / 1873.998 150 / 1873.998 197.617 / 197.617 Output Total 875 / 1625 300 / 1625 Balance -185 / 248.998 -150 / 248.998 197.617 / 197.617 Intake: IV 350 / 1143.998 197.617 / 197.617 Amiodarone / D5w 360 mg In 200 200 / 393.998 197.617 / 197.617 ml @ 0.5 MG/MIN 16.667 mls/hr IV .Q12H [facility] Rx#:[id number] Doxycycline Hyclate 100 mg In 100 / 200 Dextrose 5% Mini-B 100 ml @ 50 mls/hr IV Q12H [facility] Rx#:[id number] cefTRIAXone SODIUM 2,000 mg In 50 / 50 Dextrose 5 % Mini-B 50 ml @ 100 mls/hr IV Q24H [facility] Rx#: [id number] Oral 340 / 730 150 / 730 Output: Urine 875 / 1625 300 / 1625 Other: # Unmeasured Voids 1 Weight 74.5 kg Weight Measurement Method Standing Scale (6) Coronary artery disease Associated angina: without angina Coronary Disease-Associated Artery/Lesion type: [place] artery [place] vs. transplanted heart: [place] heart Qualified Code(s): I25.10 - Atherosclerotic heart disease of [place] coronary artery without angina pectoris
[2023-08-10] MEDS: HYDROCODONE/ACETAMOPHEN 5/325MG TAB PO PRN (08:24)
[2023-08-10] MEDS: METOPROLOL TARTRATE 25 MG TAB PO SCH ×4 (08:25→20:38)
[2023-08-10] MEDS: FLUoxetine HCL 10 MG CAP PO SCH (08:25)
[2023-08-10] MEDS: PANTOprazole 40 MG TAB PO SCH ×2 (08:26→20:39)
[2023-08-10] MEDS: ASPIRIN 81 MG ECTAB PO SCH (08:26)
[2023-08-10] MEDS: APIXABAN 2.5 MG TAB PO SCH ×2 (08:26→20:39)
[2023-08-10] MEDS: guaiFENesin 600 MG TABCR PO SCH ×2 (08:26→20:39)
[2023-08-10] MEDS: UMECLIDINIUM/VILANTEROL 62.5/25MCG 7 PUFFS/INHALER INH SCH (08:28)
[2023-08-10] MEDS: FLUTICASONE FUROATE 100MCG 14 PUFFS/INHALER INH SCH (08:28)
[2023-08-10] MEDS: DOCUSATE SODIUM 100 MG CAP PO SCH (08:28)
[2023-08-10] MEDS: DOXYCYCLINE HYCLATE 100 MG in DEXTROSE 5% MINI-B 100 ML IV SCH ×2 (08:39→20:40)
[2023-08-10] MEDS: AMIODARONE / D5W 360 MG/200 ML BAG IV SCH (09:07)
--- NOTE | 2023-08-10 11:03 | Nephrology Progress Note ---
Date of Service August 10, 2023 Assessment & Plan Admission and Anticipated Discharge Date Admission Date: August 05, 2023 Subjective Assessment & Plan (1) MISAEL (acute kidney injury): In an 88-year-old female with extensive cardiopulmonary diseases at baseline, current rise of creatinine is totally expected given significant hemodynamic changes in the last few days--- especially multiple episodes of hypoxia as well as hypotension rapid heart rate/A-fib. As a result her kidneys has not been able to cope with all this difficulty and as a result now has acute tubular necrosis with a rising creatinine. She is making urine but I do not know how much and would be worthwhile to know if possible. I would give her Lasix. She did receive 20 mg IV Lasix yesterday and will give her today also. o2 sats 90% and On 2 liter o2 Creat down from yesterday which is a good sign. MISAEL from ATN. (2) Right lower lobe pneumonia: Primary reason for admission associated with respiratory failure with hypoxia sepsis and issues with hypotension. Currently on ceftriaxone and Doxy --neither of which is nephrotoxic (3) Paroxysmal atrial fibrillation: Still with ongoing issues with A-fib/RVR with hypotension. Cardiology following closely (4) Chronic heart failure with preserved ejection fraction (HFpEF): S---feels better breathing, Says made a lot of urine unsure amount. Physical Exam Constitutional: no acute distress. On RA 98% Neck: Supple. No JVD Respiratory: + cough; no labored breathing Auscultat ion: Decreased breath sound occasional rhonchi's and crackles Cardiovascular: + tachycardic and + irregularly irregular + murmur (1/6 sm) no JVD no edema Gastrointestinal (Abdomen): normal bowel sounds, soft, nontender, Skin: no rashes, warm and dry no dry skin Neurologic: Awake and alert x 3 normal speech Psychiatric: Normal affect Results & Data Vital Signs (Past 12 Hours) Vital Signs Temp Pulse Resp BP BP Pulse Ox O2 Del Method 08/10/23 07:43 36.6 C 66 18 144/78 H 90 Nasal Cannula 08/10/23 04:00 36.6 C 63 18 144/75 H 93 Nasal Cannula 08/10/23 01:27 36.4 C L 59 L 18 127/69 95 Nasal Cannula O2 Flow Rate 08/10/23 07:43 2 08/10/23 04:00 2.5 08/10/23 01:27 2.5
[2023-08-10] MEDS ORDERED: FUROSEMIDE INJ 20 MG/2 ML VIAL IV ONE ×2 (11:06→11:24)
[2023-08-10] MEDS ORDERED: AMIODARONE 200 MG TAB PO ONE (11:23)
[2023-08-10] MEDS: cefTRIAXone SODIUM 2,000 MG in DEXTROSE 5 % MINI-B 50 ML IV SCH (16:29)
[2023-08-10] MEDS: AMIODARONE 200 MG TAB PO SCH (16:30)
[2023-08-10] MEDS ORDERED: AMIODARONE 200 MG TAB PO SCH (17:00)
--- NOTE | 2023-08-10 18:38 | Hospitalist Progress Note ---
Date of Service August 10, 2023 Assessment & Plan (1) Pneumonia: Plan Ms. Makenna Harris is an 88 year old woman with significant history of COPD (not on oxygen at home), ex-smoking, TAVR, CAD, HTN, HLD, CKD IIIb, L THR (done twice) and intermittent aspiration who presented on 08/05 due to SOB and fall and found to have sepsis, thought to be secondary to RLL pneumonia. She is being managed for the following: #Acute kidney injury on CKD IIIa/b -likely prerenal initially, ?ATN iso hypotension due to sepsis -Urine lytes/cr/urea -Nephrology consult -Hold nephrotoxic agents -Likely ATN, responding to lasix, s/p x2 lasix #Sepsis, secondary to the following *resolved #Right lower lobe pneumonia #Anaplasmosis Respiratory viral screen negative. speech evaled, neg for aspiration. Admitting temperature/respiratory rate elevated, patient was hypoxic on room air [see HPI, does not use home O2] at presentation. Admitting CXR with right basilar atelectasis CT chest w/ mild pul edema and small bibasilar opacities Patient received Zosyn in the ED, c/w it 08/05 --> still febrile --->doxy added 08/07 --> tick borne serology sent --> anaplasma came back +ve 08/07 Continue rocephin 08/07 for concerns of CAP. Continue doxycyline 200mg bid, will confirm final date with ID for EOT Follow up infectious work up Infectious disease following, appreciate recommendations -Sputum with jasmin, given clinical picture will inquire if nont significant v clinically significant https://www.ncbi.nlm.nih.gov/pmc/articles/FDF5569472/ #Acute thrombocytopenia *improved likely secondary to anaplasmosis/sepsis Trend CBC #Acute hypoxic respiratory failure, multifactorial #COPD #Former Smoker -O2 requirement iso ?pneumonia and COPD -Continue home inhalers -Scheduled guaifenesin and flutter valve #Paroxysmal atrial fibrillation: #Calcific aortic stenosis, status post TAVR Pt went in afib rvr evening of 08/05/23. Has h/o such, was on coumadin which was dc'd due to rec falls per pt's . Didn't receive her AM metoprolol on the day of admission due to "delay issues", went into afib around 420pm, received iv metoprolol 5 mg x q5m x 3 followed by diltiazem drip. Care was coordinated w/ cardio. Heparin drip was started due to elevated troponin/afib rvr --> on eliquis now. Was back to sinus rhythm and cardizem drip was dc'd. Again went in Afib rvr 08/07 am ---> pt started on amiodarone drip/diltiazem drip/qid metoprolol Cardio following: -NSR now, dilt drip discontinued -Continue meotprolol 12.5 mg QID -Continue eliquis 5mg bid -Replace lytes prn -Amiodarone transitioned to PO with discontinuation of drip #Mild nonobstructive CAD per cardiac catheterization 01/27/2019 #Left bundle branch block noted post TAVR 05/27/2019 #Chronic heart failure with preserved ejection fraction (HFpEF): -On Lasix 20 mg MWF at home #Elevated trop: likely demand ischemia 2/2 illness excerbated afib rvr. Trop flat trended as her heart rate improved. Pt w/ no chest pain now, continue telemetry monitoring.. DVT prophylaxis: on eliquis CODE STATUS: DNR/DNI Admission and Anticipated Discharge Date Admission Date: August 05, 2023 Subjective remarks that she is feeling much better and wishes to go home does not want to go to rehab denies any fevers chills or other concerns Review of Systems Review of Systems: All systems reviewed & are unremarkable except as noted in Subjective Physical Exam Constitutional: WD/WN, vitals as above Respiratory: decreased bibasilar breath sounds Cardiovascular: RRR, no murmur, no edema Results & Data Results & Data Vital Signs (Past 12 Hours) Vital Signs Temp Pulse Pulse Resp BP BP Pulse Ox 08/10/23 15:57 36.8 C 89 19 116/65 90 08/10/23 15:00 65 08/10/23 11:32 36.7 C 60 19 122/61 95 08/10/23 08:30 66 08/10/23 08:30 08/10/23 07:43 36.6 C 66 18 144/78 H 90 O2 Del Method O2 Flow Rate 08/10/23 15:57 Nasal Cannula 2 08/10/23 15:00 08/10/23 11:32 Nasal Cannula 2 08/10/23 08:30 08/10/23 08:30 Nasal Cannula 2 08/10/23 07:43 Nasal Cannula 2 Laboratory Results Short CBC 08/10/23 Range/Units 05:36 WBC 7.16 (4.8-10.8) K/ul Hgb 12.3 (12.0-16.0) g/dl Hct 39.4 (37.0-47.0) % Plt Count 138 (130-400) K/uL [facility] 08/10/23 05:36 Sodium 137 Potassium 3.7 Chloride 99 Carbon Dioxide 32 BUN 38 H Creatinine 2.52 H Glucose 131 H Calcium 9.0 Medications Administered Short CBC 08/10/23 Range/Units 05:36 WBC 7.16 (4.8-10.8) K/ul Hgb 12.3 (12.0-16.0) g/dl Hct 39.4 (37.0-47.0) % Plt Count 138 (130-400) K/uL [facility] 08/10/23 05:36 Sodium 137 Potassium 3.7 Chloride 99 Carbon Dioxide 32 BUN 38 H Creatinine 2.52 H Glucose 131 H Calcium 9.0 (1) Pneumonia Pneumonia type: due to unspecified organism Laterality: right Lung location: lower lobe of lung Qualified Code(s): J18.9 - Pneumonia, unspecified organism
[2023-08-10] MEDS: ACETAMINOPHEN 325 MG TAB PO PRN (19:32)
[2023-08-10] MEDS: ATORVASTATIN 10 MG TAB PO SCH (20:40)
[2023-08-10] MEDS: MIRTAZAPINE SOLTAB 15 MG PO SCH (20:40)
--- NOTE | 2023-08-11 08:16 | Electrocardiogram Report ---
Test Reason : Blood Pressure : / mmHG Vent. Rate : 064 BPM Atrial Rate : 064 BPM P-R Int : 200 ms QRS Dur : 142 ms QT Int : 452 ms P-R-T Axes : 066 -20 156 degrees QTc Int : 466 ms Normal sinus rhythm Left bundle branch block Abnormal ECG When compared with ECG of 10-AUG-2023 05:56, Premature ventricular complexes are no longer Present Confirmed by Jose Malave [id number]) on 08/11/2023 8:15:58 AM Referred By: REFERRED SELF Confirmed By:Jose Malave
[2023-08-11 08:51] LABS: Hematocrit (blood only) 40.8 % (37.0-47.0); Hemoglobin 12.6 g/dl (12.0-16.0); Mean Corpuscular Hemoglobin 29.5 pg (25.0-34.0); Mean Corpuscular Hgb Conc 30.9 g/dL (32.0-36.0); Mean Corpuscular Volume 95.6 fL (80.0-100.0); Mean Platelet Volume 11.5 fL (9.4-12.4); Nucleated RBC # (auto) 0.02 K/uL (0.00-0.12); Nucleated RBC % (auto) 0.2 %; Platelet Count 176 K/uL (130-400); RDW Coefficient of Variation 14.6 % (11.5-14.5); RDW Standard Deviation 51.4 fL (36.4-46.3); Red Blood Count 4.27 M/uL (4.20-5.40); White Blood Count 8.35 K/ul (4.8-10.8)
[2023-08-11 09:06] LABS: BUN Creatinine Ratio 15.4 (10-20); Calcium 9.2 mg/dl (8.6-10.3); Creatinine Clr Calc Pharmacy 16.9 ml/min; Est GFR (Non-African American) 18.1 ml/min; Magnesium 2.2 mg/dl (1.7-2.4); Phosphorus 3.3 mg/dl (2.5-4.9); Potassium 3.9 mmol/L (3.5-5.1)
[2023-08-11] MEDS: HYDROCODONE/ACETAMOPHEN 5/325MG TAB PO PRN ×2 (09:25→16:21)
[2023-08-11] MEDS: guaiFENesin 600 MG TABCR PO SCH ×2 (09:25→21:14)
[2023-08-11] MEDS: METOPROLOL TARTRATE 25 MG TAB PO SCH ×2 (09:26→21:15)
[2023-08-11] MEDS: PANTOprazole 40 MG TAB PO SCH ×2 (09:26→21:13)
[2023-08-11] MEDS: APIXABAN 2.5 MG TAB PO SCH ×2 (09:26→21:13)
[2023-08-11] MEDS: FLUoxetine HCL 10 MG CAP PO SCH (09:26)
[2023-08-11] MEDS: ASPIRIN 81 MG ECTAB PO SCH (09:26)
[2023-08-11] MEDS: AMIODARONE 200 MG TAB PO SCH ×2 (09:26→16:14)
[2023-08-11] MEDS: UMECLIDINIUM/VILANTEROL 62.5/25MCG 7 PUFFS/INHALER INH SCH (09:27)
[2023-08-11] MEDS: FLUTICASONE FUROATE 100MCG 14 PUFFS/INHALER INH SCH (09:27)
[2023-08-11] MEDS: DOXYCYCLINE HYCLATE 100 MG in DEXTROSE 5% MINI-B 100 ML IV SCH ×2 (09:28→21:13)
[2023-08-11] MEDS: DOCUSATE SODIUM 100 MG CAP PO SCH (09:29)
[2023-08-11 10:32] LABS: Urea Nitrogen, Random Urine 149 mg/dL
--- NOTE | 2023-08-11 12:44 | Cardiology Progress Note ---
Date of Service August 11, 2023 Assessment & Plan (1) Paroxysmal atrial fibrillation: (2) Chronic heart failure with preserved ejection fraction (HFpEF): (3) S/P TAVR (transcatheter aortic valve replacement): (4) Left bundle branch block: (5) MISAEL (acute kidney injury): (6) Right lower lobe pneumonia: Plan Continue amiodarone 200 mg twice daily and Eliquis. Reduce metoprolol to 12.5 mg twice daily. Hold isosorbide and amlodipine. Creatinine mildly improved today. Hold furosemide. Antibiotics per internal medicine. Admission and Anticipated Discharge Date Admission Date: August 05, 2023 Subjective Patient seen and examined at the bedside. Resting comfortably. Cough improved. Denies chest pain. Remains in sinus rhythm on telemetry. Offers no complaints today. Review of Systems Review of Systems: All systems reviewed & are unremarkable except as noted in Subjective Physical Exam Constitutional: well nourished; no acute distress Respiratory: no respiratory distress, no labored breathing and no retractions Auscultation: + crackles (Right base); no wheezes Cardiovascular: Rate/Rhythm: regular rate and regular rhythm Heart Sounds: normal S1, normal S2 and + murmur (2/6 EVELYN) Gastrointestinal (Abdomen): Inspection/Auscultation: normal bowel sounds; abdomen not distended Percussion/Palpation: abdomen soft; abdomen nontender and no guarding Neurologic: CN's II-XI intact bilaterally and moves all extremities; no focal motor deficits Results & Data Vital Signs (Past 12 Hours) Vital Signs Temp Pulse Pulse Resp BP Pulse Ox O2 Del Method 08/11/23 12:11 37.0 C 62 21 134/58 L 96 Nasal Cannula 08/11/23 08:00 Nasal Cannula 08/11/23 08:00 59 L 08/11/23 07:41 37.2 C 69 18 131/73 93 Room Air 08/11/23 02:52 36.5 C 58 L 16 139/73 98 Nasal Cannula O2 Flow Rate 08/11/23 12:11 2 08/11/23 08:00 2 08/11/23 08:00 08/11/23 07:41 08/11/23 02:52 2 Laboratory Results CBC 08/11/23 Range/Units 08:31 WBC 8.35 (4.8-10.8) K/ul RBC 4.27 (4.20-5.40) M/uL Hgb 12.6 (12.0-16.0) g/dl Hct 40.8 (37.0-47.0) % Plt Count 176 (130-400) K/uL Comprehensive Metabolic Panel 08/11/23 Range/Units 08:31 Sodium 141 (136-145) mmol/L Potassium 3.9 (3.5-5.1) mmol/L Chloride 100 (98-107) mmol/L Carbon Dioxide 35 H (21-32) mmol/L BUN 36 H (6-23) mg/dl Creatinine 2.34 H (0.6-1.2) mg/dl Glucose 162 H (70-99(Fasting)) mg/dl Calcium 9.2 (8.6-10.3) mg/dl Intake and Output 08/10/23 08/11/23 08/11/23 22:59 06:59 14:59 Intake Total 830 / 1927.617 100 / 100 Output Total 350 / 1925 500 / 1925 Balance 480 / 2.617 -500 / 2.617 100 / 100 Intake: IV 150 / 647.617 100 / 100 Doxycycline Hyclate 100 mg In 100 / 200 100 / 100 Dextrose 5% Mini-B 100 ml @ 50 mls/hr IV Q12H [facility] Rx#:[id number] cefTRIAXone SODIUM 2,000 mg In 50 / 50 Dextrose 5 % Mini-B 50 ml @ 100 mls/hr IV Q24H [facility] Rx#: [id number] Oral 680 / 1280 Output: Urine 350 / 1925 500 / 1925 Other: Weight 75.5 kg Weight Measurement Method Built in [facility] (6) Right lower lobe pneumonia Pneumonia type: due to unspecified organism Qualified Code(s): J18.9 - Pneumonia, unspecified organism
--- NOTE | 2023-08-11 14:58 | Hospitalist Progress Note ---
Date of Service August 11, 2023 Assessment & Plan (1) Pneumonia: Plan Ms. Makenna Harris is an 88 year old woman with significant history of COPD (not on oxygen at home), ex-smoking, TAVR, CAD, HTN, HLD, CKD IIIb, L THR (done twice) and intermittent aspiration who presented on 08/05 due to SOB and fall and found to have sepsis, thought to be secondary to RLL pneumonia. She is being managed for the following: #Acute kidney injury on CKD IIIa/b *improving -likely prerenal initially, ?ATN iso hypotension due to sepsis -Urine lytes/cr/urea -Nephrology consult -Hold nephrotoxic agents -Likely ATN, responding to lasix, s/p x2 lasix--holding addition lasix at this time, CTM #Sepsis, secondary to the following *resolved #Right lower lobe pneumonia #Anaplasmosis Respiratory viral screen negative. speech evaled, neg for aspiration. Admitting temperature/respiratory rate elevated, patient was hypoxic on room air [see HPI, does not use home O2] at presentation. Admitting CXR with right basilar atelectasis CT chest w/ mild pul edema and small bibasilar opacities Patient received Zosyn in the ED, c/w it 08/05 --> still febrile --->doxy added 08/07 --> tick borne serology sent --> anaplasma came back +ve 08/07 Continue rocephin 08/07 for concerns of CAP. Continue doxycyline 200mg bid, will confirm final date with ID for EOT Follow up infectious work up Infectious disease following, appreciate recommendations -Sputum with jasmin, given clinical picture will inquire if nont significant v clinically significant https://www.ncbi.nlm.nih.gov/pmc/articles/INC1645648/ -Requested up date regarding EOT for anaplasmosis as well as clinical necessity for jasmin--it appears patient is improving, but still with some O2 requirement--warrants discussion given ICS use. #Acute thrombocytopenia *improved likely secondary to anaplasmosis/sepsis Trend CBC #Acute hypoxic respiratory failure, multifactorial #COPD #Former Smoker -O2 requirement iso ?pneumonia and COPD -Continue home inhalers -Scheduled guaifenesin and flutter valve #Paroxysmal atrial fibrillation: #Calcific aortic stenosis, status post TAVR Pt went in afib rvr evening of 08/05/23. Has h/o such, was on coumadin which was dc'd due to rec falls per pt's . Didn't receive her AM metoprolol on the day of admission due to "delay issues", went into afib around 420pm, received iv metoprolol 5 mg x q5m x 3 followed by diltiazem drip. Care was coordinated w/ cardio. Heparin drip was started due to elevated troponin/afib rvr --> on eliq uis now. Was back to sinus rhythm and cardizem drip was dc'd. Again went in Afib rvr 08/07 am ---> pt started on amiodarone drip/diltiazem drip/qid metoprolol Cardio following: -NSR now, dilt drip discontinued -Continue meotprolol 12.5 mg QID -Continue eliquis 5mg bid -Replace lytes prn -Amiodarone transitioned to PO with discontinuation of drip #Mild nonobstructive CAD per cardiac catheterization 01/27/2019 #Left bundle branch block noted post TAVR 05/27/2019 #Chronic heart failure with preserved ejection fraction (HFpEF): -On Lasix 20 mg MWF at home #Elevated trop: likely demand ischemia 2/2 illness excerbated afib rvr. Trop flat trended as her heart rate improved. Pt w/ no chest pain now, continue telemetry monitoring.. DVT prophylaxis: on eliquis CODE STATUS: DNR/DNI Admission and Anticipated Discharge Date Admission Date: August 05, 2023 Subjective Reports feeling much better overall Able to engage more clearly in discussion regarding clinical course Denies any fevers, chills or acute concerns noted borderline bradycardia on telemetry Discussed that main goals for DC are final recommendations from ID and O2 optimization. Review of Systems Review of Systems: All systems reviewed & are unremarkable except as noted in Subjective Physical Exam Constitutional: WD/WN, vitals as above Respiratory: decreased right basilar lungs sounds, breathing comfortably no distress Results & Data Results & Data Vital Signs (Past 12 Hours) Vital Signs Temp Pulse Pulse Resp BP Pulse Ox O2 Del Method 08/11/23 12:11 37.0 C 62 21 134/58 L 96 Nasal Cannula 08/11/23 08:00 Nasal Cannula 08/11/23 08:00 59 L 08/11/23 07:41 37.2 C 69 18 131/73 93 Room Air O2 Flow Rate 08/11/23 12:11 2 08/11/23 08:00 2 08/11/23 08:00 08/11/23 07:41 Laboratory Results Short CBC 08/11/23 Range/Units 08:31 WBC 8.35 (4.8-10.8) K/ul Hgb 12.6 (12.0-16.0) g/dl Hct 40.8 (37.0-47.0) % Plt Count 176 (130-400) K/uL BMP 08/11/23 08:31 Sodium 141 Potassium 3.9 Chloride 100 Carbon Dioxide 35 H BUN 36 H Creatinine 2.34 H Glucose 162 H Calcium 9.2 Medications Administered Home Medications Medication Instructions Recorded Confirmed Last Taken amlodipine 10 mg tablet 5 mg PO QAM 12/31/18 08/05/23 11/21/22 meclizine 25 mg chewable tablet 25 mg PO TID PRN Anxiety 12/31/18 08/05/23 08/04/23 19:00 isosorbide dinitrate 20 mg tablet 20 mg PO TID 05/29/19 08/05/23 08/04/23 19:00 metoprolol succinate 25 mg 12.5 mg PO QAM 05/29/19 08/05/23 08/04/23 08:00 tablet,extended release 24 hr simvastatin 20 mg tablet 20 mg PO HS 05/29/19 08/05/23 08/04/23 18:00 vit C 250 mg-vit E 90 mg-zinc 40 1 tab PO BID 05/29/19 08/05/23 08/04/23 19:00 mg-copper 1 oz-[id number] capsule (PreserVision AREDS-2) ondansetron 4 mg disintegrating 4 - 8 mg PO Q8H PRN Nausea 05/16/20 08/05/23 10/04/22 tablet docusate sodium 100 mg capsule 100 mg PO QAM 08/04/21 08/05/23 11/21/22 (Colace) mirtazapine 15 mg disintegrating 15 mg PO HS 08/04/21 08/05/23 08/04/23 19:00 tablet (Remeron SolTab) polyethylene glycol 3350 17 gram 17 g PO DAILY PRN Constipation 08/04/21 08/05/23 08/04/23 08:00 oral powder packet (Miralax) aspirin 81 mg tablet,delayed 81 mg PO QAM 10/29/21 08/05/23 11/22/22 07:00 release ergocalciferol (vitamin D2) 1,250 50,000 unit PO WK 10/29/21 08/05/23 08/04/23 08:46 mcg (50,000 unit) capsule hydrocodone 5 mg-acetaminophen 325 1 tab PO Q8 PRN Pain 10/29/21 08/05/23 11/21/22 mg tablet nystatin 100,000 unit/gram topical 1 applic topical TID PRN irritation 10/29/21 08/05/23 11/21/22 powder zolpidem 5 mg tablet (Ambien) 5 mg PO HS PRN Sleep 10/29/21 08/05/23 08/04/23 19:00 albuterol sulfate 0.63 mg/3 mL 0.63 mg inhalation Q4H PRN sob 09/27/22 08/05/23 10/04/22 solution for nebulization fluoxetine 10 mg tablet 10 mg PO QAM 09/27/22 08/05/23 08/04/23 12:00 furosemide 20 mg tablet 20 mg PO 3XWK 09/27/22 08/05/23 08/03/23 omeprazole 20 mg capsule,delayed 20 mg PO BID #60 caps 10/05/22 08/05/23 08/04/23 19:00 release fluticasone fur. 100 mcg-umeclid 1 inh inhalation QAM #60 ea 01/26/23 08/05/23 08/04/23 08:00 62.5 mcg-vilant 25 mcg inhalat.powder (Trelegy Ellipta) albuterol sulfate 90 mcg/actuation 2 inh inhalation QID PRN shortness 05/29/23 08/05/23 Unknown aerosol inhaler (Ventolin HFA) of breath or wheezing #18 grams Active Medications Generic Name Dose Route Start Last Admin Trade Name Freq PRN Reason Stop Dose Admin Acetaminophen 650 mg 08/05/23 08:19 08/10/23 19:32 Acetaminophen 325 Mg Tab PO 09/04/23 08:18 650 mg Q4H PRN Administration Pain or Fever Hydrocodone Bitart/Acetaminophen 1 tab 08/05/23 14:00 08/11/23 09:25 Hydrocodone/Acetamophen 5/325mg Tab PO 08/19/23 13:59 1 tab Q8 PRN Administration Pain Albuterol 2 puffs 08/05/23 14:00 08/09/23 21:26 Albuterol Hfa 8 Gm Inhaler INH 09/04/23 13:59 2 puffs QID PRN Administration shortness of breath or wheezing Amiodarone HCl 200 mg 08/10/23 17:00 08/11/23 09:26 Amiodarone 200 Mg Tab PO 09/09/23 16:59 200 mg BIDM TONG Administration Apixaban 2.5 mg 08/09/23 21:00 08/11/23 09:26 Apixaban 2.5 Mg Tab PO 09/08/23 20:59 2.5 mg BID TONG Administration Aspirin 81 mg 08/05/23 14:30 08/11/23 09:26 Aspirin 81 Mg Ectab PO 09/04/23 14:29 81 mg QAM TONG Administration Atorvastatin Calcium 10 mg 08/07/23 21:00 08/10/23 20:40 Atorvastatin 10 Mg Tab PO 09/06/23 20:59 10 mg HS TONG Administration Docusate Sodium 100 mg 08/06/23 09:00 08/11/23 09:29 Docusate Sodium 100 Mg Cap PO 09/05/23 08:59 100 mg QAM TONG Administration Ergocalciferol 50,000 units 08/06/23 09:00 08/06/23 07:33 Ergocalciferol 50,000 Units 1250 Mcg Cap PO 09/05/23 08:59 50,000 units Mo@0900 TONG Administration Fluoxetine HCl 10 mg 08/05/23 14:30 08/11/23 09:26 Fluoxetine Hcl 10 Mg Cap PO 09/04/23 14:29 10 mg QAM TONG Administration Fluticasone Furoate 1 puffs 08/05/23 14:30 08/11/23 09:27 Fluticasone Furoate 100mcg 14 Puffs/Inhaler INH 09/04/23 14:29 1 puffs QAM TONG Administration Furosemide 20 mg 08/06/23 09:00 08/06/23 07:33 Furosemide 20 Mg Tab PO 09/05/23 08:59 20 mg MoWeFr@0900 TONG Administration Guaifenesin 600 mg 08/08/23 21:00 08/11/23 09:25 Guaifenesin 600 Mg Tabcr PO 09/07/23 20:59 600 mg Q12 TONG Administration Doxycycline Hyclate 100 mg/ 100 mls @ 50 mls/hr 08/07/23 09:00 08/11/23 10:44 Dextrose IV 08/14/23 08:59 Infused Q12H TONG Infusion Ceftriaxone Sodium 2,000 mg/ 50 mls @ 100 mls/hr 08/07/23 16:00 08/10/23 17:19 Dextrose IV 08/14/23 15:59 Infused Q24H TONG Infusion Protocol Isosorbide Dinitrate 20 mg 08/05/23 14:30 08/07/23 07:41 Isosorbide Dinitrate 20 Mg Tab PO 09/04/23 14:29 20 mg TID TONG Administration Melatonin 3 mg 08/05/23 20:01 08/06/23 20:06 Melatonin 3 Mg Tab PO 09/04/23 20:00 3 mg HS PRN Administration Sleep Mirtazapine 15 mg 08/05/23 21:00 08/10/23 20:40 Mirtazapine Soltab 15 Mg PO 09/04/23 20:59 15 mg HS TONG Administration Pantoprazole Sodium 40 mg 08/05/23 21:00 08/11/23 09:26 Pantoprazole 40 Mg Tab PO 09/04/23 20:59 40 mg BID TONG Administration Umeclidinium/Vilanterol 1 puffs 08/05/23 14:30 08/11/23 09:27 Umeclidinium/Vilanterol 62.5/25mcg 7 Puffs/Inhaler INH 09/04/23 14:29 1 puffs QAM TONG Administration (1) Pneumonia Pneumonia type: due to unspecified organism Laterality: right Lung location: lower lobe of lung Qualified Code(s): J18.9 - Pneumonia, unspecified organism
[2023-08-11] MEDS: cefTRIAXone SODIUM 2,000 MG in DEXTROSE 5 % MINI-B 50 ML IV SCH (16:14)
[2023-08-11] MEDS: ACETAMINOPHEN 325 MG TAB PO PRN (19:44)
[2023-08-11] MEDS: MIRTAZAPINE SOLTAB 15 MG PO SCH (21:13)
[2023-08-11] MEDS: ATORVASTATIN 10 MG TAB PO SCH (21:14)
[2023-08-12] MEDS: HYDROCODONE/ACETAMOPHEN 5/325MG TAB PO PRN ×2 (01:01→09:36)
[2023-08-12] MEDS: MELATONIN 3 MG TAB PO PRN ×2 (01:01→23:10)
[2023-08-12 01:34] LABS: Q Fever IgG, Phase I NEGATIVE; Q Fever Phase I IgM Antibody NEGATIVE; Q Fever Phase II IgG Antibody NEGATIVE; Q Fever Phase II IgM Antibody NEGATIVE; R. typhi IgG Ab NOT DETECTED; R. typhi IgM Ab NOT DETECTED; RMSF IgG Ab NOT DETECTED; RMSF IgM Ab NOT DETECTED
[2023-08-12 06:39] LABS: Hematocrit (blood only) 36.7 % (37.0-47.0); Hemoglobin 11.4 g/dl (12.0-16.0); Mean Corpuscular Hemoglobin 29.5 pg (25.0-34.0); Mean Corpuscular Hgb Conc 31.1 g/dL (32.0-36.0); Mean Corpuscular Volume 94.8 fL (80.0-100.0); Mean Platelet Volume 11.6 fL (9.4-12.4); Platelet Count 198 K/uL (130-400); RDW Coefficient of Variation 14.6 % (11.5-14.5); RDW Standard Deviation 51.6 fL (36.4-46.3); Red Blood Count 3.87 M/uL (4.20-5.40)
[2023-08-12 06:56] LABS: Calcium 9.4 mg/dl (8.6-10.3); Creatinine Clr Calc Pharmacy 19.7 ml/min; Est GFR (African American) 25.4 ml/min; Est GFR (Non-African American) 21.9 ml/min; Magnesium 2.3 mg/dl (1.7-2.4); Phosphorus 3.8 mg/dl (2.5-4.9); Potassium 3.7 mmol/L (3.5-5.1)
--- NOTE | 2023-08-12 07:50 | Electrocardiogram Report ---
Test Reason : Blood Pressure : / mmHG Vent. Rate : 065 BPM Atrial Rate : 065 BPM P-R Int : 212 ms QRS Dur : 144 ms QT Int : 460 ms P-R-T Axes : 082 -28 145 degrees QTc Int : 478 ms Sinus rhythm with 1st degree A-V block Left bundle branch block Abnormal ECG When compared with ECG of 11-AUG-2023 06:08, No significant change was found Confirmed by Jose Malave [id number] on 08/12/2023 7:50:15 AM Referred By: REFERRED SELF Confirmed By:Jose Malave
[2023-08-12] MEDS: METOPROLOL TARTRATE 25 MG TAB PO SCH ×2 (09:30→20:15)
[2023-08-12] MEDS: ASPIRIN 81 MG ECTAB PO SCH (09:30)
[2023-08-12] MEDS: FLUoxetine HCL 10 MG CAP PO SCH (09:30)
[2023-08-12] MEDS: APIXABAN 2.5 MG TAB PO SCH ×2 (09:30→20:15)
[2023-08-12] MEDS: PANTOprazole 40 MG TAB PO SCH ×2 (09:31→20:15)
[2023-08-12] MEDS: AMIODARONE 200 MG TAB PO SCH ×2 (09:31→17:07)
[2023-08-12] MEDS: UMECLIDINIUM/VILANTEROL 62.5/25MCG 7 PUFFS/INHALER INH SCH (09:31)
[2023-08-12] MEDS: guaiFENesin 600 MG TABCR PO SCH ×2 (09:31→20:15)
[2023-08-12] MEDS: FLUTICASONE FUROATE 100MCG 14 PUFFS/INHALER INH SCH (09:31)
[2023-08-12] MEDS: DOCUSATE SODIUM 100 MG CAP PO SCH (09:31)
[2023-08-12] MEDS: DOXYCYCLINE HYCLATE 100 MG in DEXTROSE 5% MINI-B 100 ML IV SCH ×2 (09:32→20:16)
[2023-08-12] MEDS ORDERED: FUROSEMIDE INJ 20 MG/2 ML VIAL IV ONE (11:15)
--- NOTE | 2023-08-12 13:48 | Cardiology Progress Note ---
Date of Service August 12, 2023 Assessment & Plan (1) Paroxysmal atrial fibrillation: (2) Chronic heart failure with preserved ejection fraction (HFpEF): (3) S/P TAVR (transcatheter aortic valve replacement): (4) Left bundle branch block: (5) MISAEL (acute kidney injury): (6) Right lower lobe pneumonia: Plan Continue amiodarone 200 mg twice daily and Eliquis. Continue metoprolol to 12.5 mg twice daily. Hold isosorbide and amlodipine. Creatinine mildly improved today. Restart furosemide when renal function has returned to baseline. Antibiotics per internal medicine. Admission and Anticipated Discharge Date Admission Date: August 05, 2023 Subjective Patient seen and examined at the bedside. Resting comfortably. Denies chest pain. Remains in sinus rhythm on telemetry. Creatinine trending down. Lasix on hold. Offers no complaints today. Review of Systems Review of Systems: All systems reviewed & are unremarkable except as noted in Subjective Physical Exam Constitutional: well nourished; no acute distress Respiratory: no respiratory distress, no labored breathing and no retractions Auscultation: + crackles (Right base); no wheezes Cardiovascular: Rate/Rhythm: regular rate and regular rhythm Heart Sounds: normal S1, normal S2 and + murmur (2/6 EVELYN) Gastrointestinal (Abdomen): Inspection/Auscultation: normal bowel sounds; abdomen not distended Percussion/Palpation: abdomen soft; abdomen nontender and no guarding Neurologic: CN's II-XI intact bilaterally and moves all extremities; no focal motor deficits Results & Data Vital Signs (Past 12 Hours) Vital Signs Temp Pulse Pulse Pulse Pulse Pulse Pulse 08/12/23 12:41 36.4 C L 63 08/12/23 11:42 36.4 C L 63 08/12/23 10:47 08/12/23 09:51 102 H 96 H 78 80 08/12/23 07:57 36.6 C 64 08/12/23 06:53 66 08/12/23 03:27 36.6 C 69 Resp Resp Resp Resp Resp BP BP 08/12/23 12:41 19 149/62 H 134/73 08/12/23 11:42 19 134/73 08/12/23 10:47 08/12/23 09:51 20 18 18 18 08/12/23 07:57 17 135/71 08/12/23 06:53 08/12/23 03:27 18 149/62 H Pulse Ox Pulse Ox Pulse Ox Pulse Ox Pulse Ox O2 Del Method O2 Flow Rate 08/12/23 12:41 95 08/12/23 11:42 95 Nasal Cannula 2 08/12/23 10:47 Nasal Cannula 2 08/12/23 09:51 87 L 90 90 84 L 08/12/23 07:57 94 Nasal Cannula 3 08/12/23 06:53 08/12/23 03:27 93 Nasal Cannula 3 O2 Flow Rate O2 Flow Rate O2 Flow Rate 08/12/23 12:41 08/12/23 11:42 08/12/23 10:47 08/12/23 09:51 2 3 2 08/12/23 07:57 08/12/23 06:53 08/12/23 03:27 Laboratory Results CBC 08/12/23 Range/Units 06:17 WBC 8.30 (4.8-10.8) K/ul RBC 3.87 L (4.20-5.40) M/uL Hgb 11.4 L (12.0-16.0) g/dl Hct 36.7 L (37.0-47.0) % Plt Count 198 (130-400) K/uL Comprehensive Metabolic Panel 08/12/23 Range/Units 06:17 Sodium 143 (136-145) mmol/L Potassium 3.7 (3.5-5.1) mmol/L Chloride 104 (98-107) mmol/L Carbon Dioxide 36 H (21-32) mmol/L BUN 34 H (6-23) mg/dl Creatinine 2.00 H D (0.6-1.2) mg/dl Glucose 125 H (70-99(Fasting)) mg/dl Calcium 9.4 (8.6-10.3) mg/dl Intake and Output 08/11/23 08/12/23 08/12/23 22:59 06:59 14:59 Intake Total 300 / 740 100 / 740 100 / 100 Output Total 100 / 102 Balance 200 / 638 100 / 638 100 / 100 Intake: IV 50 / 250 100 / 250 100 / 100 Doxycycline Hyclate 100 mg In 100 / 200 100 / 100 Dextrose 5% Mini-B 100 ml @ 50 mls/hr IV Q12H [facility] Rx#:[id number] cefTRIAXone SODIUM 2,000 mg In 50 / 50 Dextrose 5 % Mini-B 50 ml @ 100 mls/hr IV Q24H [facility] Rx#: [id number] Oral 250 / 490 Output: Urine 100 / 100 Other: # Unmeasured Voids 2 Weight 75.5 kg Patient Weight 08/13/23 06:59 Weight 75.5 kg (6) Right lower lobe pneumonia Pneumonia type: due to unspecified organism Qualified Code(s): J18.9 - Pneumonia, unspecified organism
--- NOTE | 2023-08-12 14:44 | Hospitalist Progress Note ---
Date of Service August 12, 2023 Assessment & Plan (1) Pneumonia: Plan Ms. Makenna Harris is an 88 year old woman with significant history of COPD (not on oxygen at home), ex-smoking, TAVR, CAD, HTN, HLD, CKD IIIb, L THR (done twice) and intermittent aspiration who presented on 08/05 due to SOB and fall and found to have sepsis, thought to be secondary to RLL pneumonia. She is being managed for the following: #Acute kidney injury on CKD IIIa/b *improving -likely prerenal initially, ?ATN iso hypotension due to sepsis -Urine lytes/cr/urea -Nephrology consult -Hold nephrotoxic agents -Likely ATN, responding to lasix, s/p x2 lasix- -Resume home lasix 20mg MWF #Sepsis, secondary to the following *resolved #Right lower lobe pneumonia #Anaplasmosis Respiratory viral screen negative. speech evaled, neg for aspiration. Admitting temperature/respiratory rate elevated, patient was hypoxic on room air [see HPI, does not use home O2] at presentation. Admitting CXR with right basilar atelectasis CT chest w/ mild pul edema and small bibasilar opacities Patient received Zosyn in the ED, c/w it 08/05 --> still febrile --->doxy added 08/07 --> tick borne serology sent --> anaplasma came back +ve 08/07 Continue rocephin 08/07 for concerns of CAP. Continue doxycyline 200mg bid, will confirm final date with ID for EOT Follow up infectious work up Infectious disease following, appreciate recommendations -Discussion with Dr. Mandujano over tiger text suggests jasmin in sputum at this time is not significant -Completed course of CTX for pna -Continue doxycycline EOT 08/23 #Acute thrombocytopenia *improved likely secondary to anaplasmosis/sepsis Trend CBC #Acute hypoxic respiratory failure, multifactorial #COPD #Former Smoker -O2 requirement iso ?pneumonia and COPD -Continue home inhalers -Scheduled guaifenesin and flutter valve #Paroxysmal atrial fibrillation: #Calcific aortic stenosis, status post TAVR Pt went in afib rvr evening of 08/05/23. Has h/o such, was on coumadin which was dc'd due to rec falls per pt's . Didn't receive her AM metoprolol on the day of admission due to "delay issues", went into afib around 420pm, received iv metoprolol 5 mg x q5m x 3 followed by diltiazem drip. Care was coordinated w/ cardio. Heparin drip was started due to elevated troponin/afib rvr --> on eliq uis now. Was back to sinus rhythm and cardizem drip was dc'd. Again went in Afib rvr 08/07 am ---> pt started on amiodarone drip/diltiazem drip/qid metoprolol Cardio following: -NSR now, dilt drip discontinued -Continue metoprolol 12.5 mg QID -Continue eliquis 5mg bid -Start Furosemide MWF -Replace lytes prn -Amiodarone transitioned to PO with discontinuation of drip #Mild nonobstructive CAD per cardiac catheterization 01/27/2019 #Left bundle branch block noted post TAVR 05/27/2019 #Chronic heart failure with preserved ejection fraction (HFpEF): -On Lasix 20 mg MWF at home #Elevated trop: likely demand ischemia 2/2 illness excerbated afib rvr. Trop flat trended as her heart rate improved. Pt w/ no chest pain now, continue telemetry monitoring.. DVT prophylaxis: on eliquis CODE STATUS: DNR/DNI Admission and Anticipated Discharge Date Admission Date: August 05, 2023 Subjective Dsicussed possible discharge--patient refusing rehab or home health Long phone call had with Isma (son # [phone]) He is POA and lives [place] away. He is in town for short visit to help with sick father ( of patient); ultimately conversation revealed patient is not safe at home to any degree, she cannot care for self and cannot care for her. Son will try to call and encourage patient to seek rehab as an option as safety is huge concern Review of Systems Review of Systems: All systems reviewed & are unremarkable except as noted in Subjective Physical Exam Constitutional: WD/WN, vitals as above Respiratory: normal respiratory effort, lungs clear to auscultation Cardiovascular: RRR, no murmur, no edema Results & Data Results & Data Vital Signs (Past 12 Hours) Vital Signs Temp Pulse Pulse Pulse Pulse Pulse Pulse 08/12/23 12:41 36.4 C L 63 08/12/23 11:42 36.4 C L 63 08/12/23 10:47 08/12/23 09:51 102 H 96 H 78 80 08/12/23 07:57 36.6 C 64 08/12/23 06:53 66 08/12/23 03:27 36.6 C 69 Resp Resp Resp Resp Resp BP BP 08/12/23 12:41 19 149/62 H 134/73 08/12/23 11:42 19 134/73 08/12/23 10:47 08/12/23 09:51 20 18 18 18 08/12/23 07:57 17 135/71 08/12/23 06:53 08/12/23 03:27 18 149/62 H Pulse Ox Pulse Ox Pulse Ox Pulse Ox Pulse Ox O2 Del Method O2 Flow Rate 08/12/23 12:41 95 08/12/23 11:42 95 Nasal Cannula 2 08/12/23 10:47 Nasal Cannula 2 08/12/23 09:51 87 L 90 90 84 L 08/12/23 07:57 94 Nasal Cannula 3 08/12/23 06:53 08/12/23 03:27 93 Nasal Cannula 3 O2 Flow Rate O2 Flow Rate O2 Flow Rate 08/12/23 12:41 08/12/23 11:42 08/12/23 10:47 08/12/23 09:51 2 3 2 08/12/23 07:57 08/12/23 06:53 08/12/23 03:27 Laboratory Results Short CBC 08/12/23 Range/Units 06:17 WBC 8.30 (4.8-10.8) K/ul Hgb 11.4 L (12.0-16.0) g/dl Hct 36.7 L (37.0-47.0) % Plt Count 198 (130-400) K/uL BMP 08/12/23 06:17 Sodium 143 Potassium 3.7 Chloride 104 Carbon Dioxide 36 H BUN 34 H Creatinine 2.00 H D Glucose 125 H Calcium 9.4 Medications Administered Home Medications Medication Instructions Recorded Confirmed Last Taken meclizine 25 mg chewable tablet 25 mg PO TID PRN Anxiety 12/31/18 08/05/23 08/04/23 19:00 vit C 250 mg-vit E 90 mg-zinc 40 1 tab PO BID 05/29/19 08/05/23 08/04/23 19:00 mg-copper 1 [id number] capsule (PreserVision AREDS-2) ondansetron 4 mg disintegrating 4 - 8 mg PO Q8H PRN Nausea 05/16/20 08/05/23 10/04/22 tablet docusate sodium 100 mg capsule 100 mg PO QAM 08/04/21 08/05/23 11/21/22 (Colace) mirtazapine 15 mg disintegrating 15 mg PO HS 08/04/21 08/05/23 08/04/23 19:00 tablet (Remeron SolTab) polyethylene glycol 3350 17 gram 17 g PO DAILY PRN Constipation 08/04/21 08/05/23 08/04/23 08:00 oral powder packet (Miralax) aspirin 81 mg tablet,delayed 81 mg PO QAM 10/29/21 08/05/23 11/22/22 07:00 release ergocalciferol (vitamin D2) 1,250 50,000 unit PO WK 10/29/21 08/05/23 08/04/23 08:46 mcg (50,000 unit) capsule hydrocodone 5 mg-acetaminophen 325 1 tab PO Q8 PRN Pain 10/29/21 08/05/23 11/21/22 mg tablet nystatin 100,000 unit/gram topical 1 applic topical TID PRN irritation 10/29/21 08/05/23 11/21/22 powder zolpidem 5 mg tablet (Ambien) 5 mg PO HS PRN Sleep 10/29/21 08/05/23 08/04/23 19:00 albuterol sulfate 0.63 mg/3 mL 0.63 mg inhalation Q4H PRN sob 09/27/22 08/05/23 10/04/22 solution for nebulization fluoxetine 10 mg tablet 10 mg PO QAM 09/27/22 08/05/23 08/04/23 12:00 furosemide 20 mg tablet 20 mg PO 3XWK 09/27/22 08/05/23 08/03/23 omeprazole 20 mg capsule,delayed 20 mg PO BID #60 caps 10/05/22 08/05/23 08/04/23 19:00 release fluticasone fur. 100 mcg-umeclid 1 inh inhalation QAM #60 ea 01/26/23 08/05/23 08/04/23 08:00 62.5 mcg-vilant 25 mcg inhalat.powder (Trelegy Ellipta) albuterol sulfate 90 mcg/actuation 2 inh inhalation QID PRN shortness 05/29/23 08/05/23 Unknown aerosol inhaler (Ventolin HFA) of breath or wheezing #18 grams amiodarone 200 mg tablet 200 mg PO BIDM #60 tabs 08/12/23 Unknown apixaban 2.5 mg tablet (Eliquis) 2.5 mg PO BID 30 days #60 tabs 08/12/23 Unknown atorvastatin 10 mg tablet 10 mg PO HS #30 tabs 08/12/23 Unknown doxycycline hyclate 100 mg tablet 100 mg PO BID 10 days #20 tabs 08/12/23 Un known metoprolol tartrate 25 mg tablet 12.5 mg (1/2 x 25 mg) PO BID #30 08/12/23 Unknown tabs Active Medications Generic Name Dose Route Start Last Admin Trade Name Freq PRN Reason Stop Dose Admin Acetaminophen 650 mg 08/05/23 08:19 08/11/23 19:44 Acetaminophen 325 Mg Tab PO 09/04/23 08:18 650 mg Q4H PRN Administration Pain or Fever Hydrocodone Bitart/Acetaminophen 1 tab 08/05/23 14:00 08/12/23 09:36 Hydrocodone/Acetamophen 5/325mg Tab PO 08/19/23 13:59 1 tab Q8 PRN Administration Pain Albuterol 2 puffs 08/05/23 14:00 08/09/23 21:26 Albuterol Hfa 8 Gm Inhaler INH 09/04/23 13:59 2 puffs QID PRN Administration shortness of breath or wheezing Amiodarone HCl 200 mg 08/10/23 17:00 08/12/23 09:31 Amiodarone 200 Mg Tab PO 09/09/23 16:59 200 mg BIDM TONG Administration Apixaban 2.5 mg 08/09/23 21:00 08/12/23 09:30 Apixaban 2.5 Mg Tab PO 09/08/23 20:59 2.5 mg BID TONG Administration Aspirin 81 mg 08/05/23 14:30 08/12/23 09:30 Aspirin 81 Mg Ectab PO 09/04/23 14:29 81 mg QAM TONG Administration Atorvastatin Calcium 10 mg 08/07/23 21:00 08/11/23 21:14 Atorvastatin 10 Mg Tab PO 09/06/23 20:59 10 mg HS TONG Administration Docusate Sodium 100 mg 08/06/23 09:00 08/12/23 09:31 Docusate Sodium 100 Mg Cap PO 09/05/23 08:59 Not Given QAM TONG Ergocalciferol 50,000 units 08/06/23 09:00 08/06/23 07:33 Ergocalciferol 50,000 Units 1250 Mcg Cap PO 09/05/23 08:59 50,000 units Mo@0900 TONG Administration Fluoxetine HCl 10 mg 08/05/23 14:30 08/12/23 09:30 Fluoxetine Hcl 10 Mg Cap PO 09/04/23 14:29 10 mg QAM TONG Administration Fluticasone Furoate 1 puffs 08/05/23 14:30 08/12/23 09:31 Fluticasone Furoate 100mcg 14 Puffs/Inhaler INH 09/04/23 14:29 1 puffs QAM TONG Administration Furosemide 20 mg 08/06/23 09:00 08/06/23 07:33 Furosemide 20 Mg Tab PO 09/05/23 08:59 20 mg MoWeFr@0900 TONG Administration Guaifenesin 600 mg 08/08/23 21:00 08/12/23 09:31 Guaifenesin 600 Mg Tabcr PO 09/07/23 20:59 600 mg Q12 TONG Administration Doxycycline Hyclate 100 mg/ 100 mls @ 50 mls/hr 08/07/23 09:00 08/12/23 11:38 Dextrose IV 08/14/23 08:59 Infused Q12H TONG Infusion Ceftriaxone Sodium 2,000 mg/ 50 mls @ 100 mls/hr 08/07/23 16:00 08/11/23 17:26 Dextrose IV 08/14/23 15:59 Infused Q24H TONG Infusion Protocol Isosorbide Dinitrate 20 mg 08/05/23 14:30 08/07/23 07:41 Isosorbide Dinitrate 20 Mg Tab PO 09/04/23 14:29 20 mg TID TONG Administration Melatonin 3 mg 08/05/23 20:01 08/12/23 01:01 Melatonin 3 Mg Tab PO 09/04/23 20:00 3 mg HS PRN Administration Sleep Metoprolol Tartrate 12.5 mg 08/11/23 21:00 08/12/23 09:30 Metoprolol Tartrate 25 Mg Tab PO 09/10/23 20:59 12.5 mg BID TONG Administration Mirtazapine 15 mg 08/05/23 21:00 08/11/23 21:13 Mirtazapine Soltab 15 Mg PO 09/04/23 20:59 15 mg HS TONG Administration Pantoprazole Sodium 40 mg 08/05/23 21:00 08/12/23 09:31 Pantoprazole 40 Mg Tab PO 09/04/23 20:59 40 mg BID TONG Administration Umeclidinium/Vilanterol 1 puffs 08/05/23 14:30 08/12/23 09:31 Umeclidinium/Vilanterol 62.5/25mcg 7 Puffs/Inhaler INH 09/04/23 14:29 1 puffs QAM TONG Administration (1) Pneumonia Pneumonia type: due to unspecified organism Laterality: right Lung location: lower lobe of lung Qualified Code(s): J18.9 - Pneumonia, unspecified organism
--- NOTE | 2023-08-12 16:02 | Discharge Summary ---
Discharge Summary Date of Service August 13 2023 Notes For Next Care Provider -Jeanna in sputum not significant per ID (Dr Mandujano). Consider Pulm follow up -Requires Cardiology follow up -BMP in 1 week Medication Changes From Visit Started: -Amiodarone 200mg, twice daily for rhythm -Metoprolol Tartrate 12.5 mg twice daily -Atorvastatin 10mg -Doxycycline 100mg BID x 10 more days -Eliquis 2.5mg BID Discontinued: -Imdur 20mg -Amlodipine 10mg -Metoprolol Succinate XL 25mg daily (second part of name different than above medication) -Simvastatin 20mg Admission HPI Per Admitting Provider 88-year-old lady with PMH of COPD/mild emphysema, smoking 2 packs a day for 60 years/quit 7 years ago, HTN, HLD, CAD, bilateral carotid artery stenosis, severe aortic stenosis, stenosis of left vertebral artery, status post TAVR, LBBB, macular degeneration of right eye, GERD, CKD stage IIIb presented to the ED with complaint of worsening shortness of breath for 2-3 days and fall the night prior to arrival. Per discussion with ER physician, patient was saturating in the 60s on room air at EMS arrival, improved on nasal cannula oxygen, was saturating in low 80s in the ED on room air at presentation. Patient reports worsening shortness of breath since last 2 to 3 days, cough with greenish sputum, also reports occasional choking on the food. Patient reports feeling weak and tired. Is dry on exam. Patient reports not being able to sleep okay lately, went up to go to recliner last night/didn't turn on light while doing so/tripped on something and fell on the right side/did not hit her head/is not hurting anywhere per patient. She could not get up/her could not help her get up and hence they decided to call EMS. Patient denies chest pain/palpitation/sore throat. Patient denies nausea or vomiting. Patient reports baseline appetite. Reports constipation and denies pain or burning with passing urine. Denies any belly pain. Smoking history2 packs a day for 60 years, quit 7 years ago. Denies use of alcohol or recreational drugs. DNR/DNI Plan of care discussed with the patient, she voiced understanding. Answered all her questions. Admission Exam Per Admitting Provider GENERAL: Alert and oriented x3. NAD, on 3L NC O2. Appears ill/frail/weak. HEENT: No pallor, no icterus. Pupils equal, round and reactive to light. Oral mucosa dry. NECK: No JVD, no neck masses. HEART: S1 and S2 heard. Regular rate and rhythm. Tachycardia. + murmur, no gallop. RESPIRATORY SYSTEM: Normal AP diameter. No accessory muscle use. No wheezing, RLL crackles ABDOMEN: Soft, bowel sounds present, nontender, no distention. CENTRAL NERVOUS SYSTEM: No facial droop. Speech is clear. Obeys simple commands. Moves extremities. EXTREMITIES: No edema, no erythema seen. Principal Dx & Hospital Course #1 = Principal Diagnosis (1) Pneumonia: Plan Ms. Makenna Harris is an 88 year old woman with significant history of COPD (not on oxygen at home), ex-smoking, TAVR, CAD, HTN, HLD, CKD IIIb, L THR (done twice) and intermittent aspiration who presented on 08/05 due to SOB and fall and found to have sepsis, thought to be secondary to RLL pneumonia. She is being managed for the following: #Acute kidney injury on CKD IIIa/b *improving -likely prerenal initially, ?ATN iso hypotension due to sepsis -Urine lytes/cr/urea -Nephrology consult -Hold nephrotoxic agents -Likely ATN, responding to lasix, s/p x2 lasix- -Resume home lasix 20mg MWF -Repeat BMP in 1 week #Sepsis, secondary to the following *resolved #Right lower lobe pneumonia #Anaplasmosis Respiratory viral screen negative. speech evaled, neg for aspiration. Admitting temperature/respiratory rate elevated, patient was hypoxic on room air [see HPI, does not use home O2] at presentation. Admitting CXR with right basilar atelectasis CT chest w/ mild pul edema and small bibasilar opacities Patient received Zosyn in the ED, c/w it 08/05 --> still febrile --->doxy added 08/07 --> tick borne serology sent --> anaplasma came back +ve 08/07 Completed 5 days rocephin 08/07 for concerns of CAP. Infectious disease following, appreciate recommendations -Discussion with Dr. Mandujano over tiger text suggests jeanna in sputum at this time is not significant -Completed course of CTX for pna -Continue doxycycline EOT 08/23 #Acute thrombocytopenia *improved likely secondary to anaplasmosis/sepsis Trend CBC #Acute hypoxic respiratory failure, multifactorial #COPD #Former Smoker -O2 requirement iso ?pneumonia and COPD -Continue home inhalers -Scheduled guaifenesin and flutter valve - 2L O2 at rest, 3L on exertion #Paroxysmal atrial fibrillation: #Calcific aortic stenosis, status post TAVR Pt went in afib rvr evening of 08/05/23. Has h/o such, was on coumadin which was dc'd due to rec falls per pt's . Didn't receive her AM metoprolol on the day of admission due to "delay issues", went into afib around 420pm, received iv metoprolol 5 mg x q5m x 3 followed by diltiazem drip. Care was coordinated w/ cardio. Heparin drip was started due to elevated troponin/afib rvr --> on eliquis now. Was back to sinus rhythm and cardizem drip was dc'd. Again went in Afib rvr 08/07 am ---> pt started on amiodarone drip/diltiazem drip/qid metoprolol Cardio following: -NSR now, dilt drip discontinued -Continue metoprolol 12.5 mg QID -Continue eliquis 5mg bid -Start Furosemide MWF -Replace lytes prn -Amiodarone transitioned to PO with discontinuation of drip #Mild nonobstructive CAD per cardiac catheterization 01/27/2019 #Left bundle branch block noted post TAVR 05/27/2019 #Chronic heart failure with preserved ejection fraction (HFpEF): -On Lasix 20 mg MWF at home On day of discharge, patient was eager to leave. Initially apprehensive about rehab, but son, Isma, able to convince patient to go. She denied chest pain or acute concerns. Reports feeling well over all, but notes she is deconditioned. Discharge Exam Constitutional WD/WN, vitals as above Respiratory decreased RLL, no wheezing or crackles appreciated on exam Cardiovascular RRR, no murmur, no edema Gastrointestinal (Abdomen) normal bowel sounds, soft, nontender, no hepatosplenomegaly Updated Medication List Medication Instructions Recorded Confirmed Type meclizine 25 mg chewable tablet 25 mg PO TID PRN Anxiety 12/31/18 08/05/23 History vit C 250 mg-vit E 90 mg-zinc 40 1 tab PO BID 05/29/19 08/05/23 History mg-copper 1 [id number] capsule (PreserVision AREDS-2) ondansetron 4 mg disintegrating 4 - 8 mg PO Q8H PRN Nausea 05/16/20 08/05/23 History tablet docusate sodium 100 mg capsule 100 mg PO QAM 08/04/21 08/05/23 History (Colace) mirtazapine 15 mg disintegrating 15 mg PO HS 08/04/21 08/05/23 History tablet (Remeron SolTab) polyethylene glycol 3350 17 gram 17 g PO DAILY PRN Constipation 08/04/21 08/05/23 History oral powder packet (Miralax) aspirin 81 mg tablet,delayed 81 mg PO QAM 10/29/21 08/05/23 History release ergocalciferol (vitamin D2) 1,250 50,000 unit PO WK 10/29/21 08/05/23 History mcg (50,000 unit) capsule hydrocodone 5 mg-acetaminophen 325 1 tab PO Q8 PRN Pain 10/29/21 08/05/23 Hi story mg tablet nystatin 100,000 unit/gram topical 1 applic topical TID PRN irritation 10/29/21 08/05/23 History powder zolpidem 5 mg tablet (Ambien) 5 mg PO HS PRN Sleep 10/29/21 08/05/23 History albuterol sulfate 0.63 mg/3 mL 0.63 mg inhalation Q4H PRN sob 09/27/22 08/05/23 History solution for nebulization fluoxetine 10 mg tablet 10 mg PO QAM 09/27/22 08/05/23 History furosemide 20 mg tablet 20 mg PO 3XWK 09/27/22 08/05/23 History omeprazole 20 mg capsule,delayed 20 mg PO BID #60 caps 10/05/22 08/05/23 Rx release fluticasone fur. 100 mcg-umeclid 1 inh inhalation QAM #60 ea 01/26/23 08/05/23 Rx 62.5 mcg-vilant 25 mcg inhalat.powder (Trelegy Ellipta) albuterol sulfate 90 mcg/actuation 2 inh inhalation QID PRN shortness 05/29/23 08/05/23 Rx aerosol inhaler (Ventolin HFA) of breath or wheezing #18 grams amiodarone 200 mg tablet 200 mg PO BIDM #60 tabs 08/12/23 Rx apixaban 2.5 mg tablet (Eliquis) 2.5 mg PO BID 30 days #60 tabs 08/12/23 Rx atorvastatin 10 mg tablet 10 mg PO HS #30 tabs 08/12/23 Rx doxycycline hyclate 100 mg tablet 100 mg PO BID 10 days #20 tabs 08/12/23 Rx metoprolol tartrate 25 mg tablet 12.5 mg (1/2 x 25 mg) PO BID #30 08/12/23 Rx tabs Hospital Stay Data Consultations 08/05/23 07:50 ED Decision to Admit Stat 08/05/23 16:30 Consult Cardiology Routine 08/07/23 08:31 Consult Infectious Diseases Routine 08/09/23 08:21 Consult Nephrology Routine Diagnostic Imagining Performed 08/05/23 08:22 CT chest diagnostic wo con Routine Pending Results Patient Have Any Pending Studies at Discharge: No Discharge Instructions Given to Patient (Per Discharging Provider) You were admitted for concerns of infection and fast heart rate (called atrial fibrillation with rapid ventricular response). You were started on medications to help your heart's rhythm as well as how fast it beats: -Amiodarone 200mg, twice daily for rhythm -Metoprolol Tartrate 12.5 mg, 0.5 tablet (25mg= 1 tablet), twice daily -Atorvastatin 10mg Atrial fibrillation can increase your risk of stroke, therefore patient's with such a heart rhythm will be started on a blood thinner medication. Special caution will need to be taken to avoid falls/injurt as able. You were started on the following: -Eliquis 2.5mg twice daily Due to the new addition of medications, a few of your home medications were discontinued: -Imdur 20mg -Amlodipine 10mg -Metoprolol Succinate XL 25mg daily (second part of name different than above medication) -Simvastatin 20mg You were also found to have concerns of pneumonia and an infection caused by ticks, Anaplasmosis. You were treated for 5 days with IV antibiotics for the pneumonia, but will need to continue antibiotics by mouth for the tick disease, Anaplasmosis: -Doxycycline 100mg twice a day; please take your next dose this evening and complete the entire course Given your pneumonia and deconditioning, on top of COPD, you have required oxygen. This can take some time to recover from and therefore you will be sent home with home oxygen supplies, 2L while resting and 3L on exertion. Please follow up with PCP and [employer] to be arranged Please repeat BMP in 1 week to follow up on kidney function Total Time Total Time Spent Total Time Spent (In Minutes): 55
[2023-08-12] MEDS: cefTRIAXone SODIUM 2,000 MG in DEXTROSE 5 % MINI-B 50 ML IV SCH (17:07)
--- NOTE | 2023-08-12 18:55 | Communication Note ---
Date of Service: August 12, 2023 Transport cancelled
[2023-08-12] MEDS: ALBUTEROL HFA 8 GM INHALER INH PRN (19:57)
[2023-08-12] MEDS: MIRTAZAPINE SOLTAB 15 MG PO SCH (20:15)
[2023-08-12] MEDS: ATORVASTATIN 10 MG TAB PO SCH (20:15)
[2023-08-12] MEDS: ACETAMINOPHEN 325 MG TAB PO PRN (23:10)
[2023-08-13 06:47] LABS: Hematocrit (blood only) 35.3 % (37.0-47.0); Hemoglobin 10.7 g/dl (12.0-16.0); Mean Corpuscular Hemoglobin 29.1 pg (25.0-34.0); Mean Corpuscular Hgb Conc 30.3 g/dL (32.0-36.0); Mean Corpuscular Volume 95.9 fL (80.0-100.0); Mean Platelet Volume 11.2 fL (9.4-12.4); Platelet Count 209 K/uL (130-400); RDW Coefficient of Variation 14.7 % (11.5-14.5); RDW Standard Deviation 52.6 fL (36.4-46.3); Red Blood Count 3.68 M/uL (4.20-5.40); White Blood Count 7.95 K/ul (4.8-10.8)
--- NOTE | 2023-08-13 06:58 | Electrocardiogram Report ---
Test Reason : Blood Pressure : / mmHG Vent. Rate : 067 BPM Atrial Rate : 067 BPM P-R Int : 198 ms QRS Dur : 142 ms QT Int : 444 ms P-R-T Axes : 070 -29 147 degrees QTc Int : 469 ms Sinus rhythm with occasional Premature ventricular complexes Left bundle branch block Abnormal ECG When compared with ECG of 09-AUG-2023 05:17, Premature ventricular complexes are now Present Confirmed by Kahlil Burks ([id number]) on 08/10/2023 1:10:20 PM Referred By: REFERRED SELF Confirmed By:Kahlil Burks
[2023-08-13 06:59] LABS: Calcium 9.2 mg/dl (8.6-10.3); Creatinine Clr Calc Pharmacy 21.7 ml/min; Est GFR (African American) 28.3 ml/min; Est GFR (Non-African American) 24.4 ml/min; Magnesium 2.2 mg/dl (1.7-2.4); Phosphorus 4.1 mg/dl (2.5-4.9); Potassium 3.8 mmol/L (3.5-5.1)
[2023-08-13] MEDS: FLUTICASONE FUROATE 100MCG 14 PUFFS/INHALER INH SCH (08:09)
[2023-08-13] MEDS: UMECLIDINIUM/VILANTEROL 62.5/25MCG 7 PUFFS/INHALER INH SCH (08:09)
[2023-08-13] MEDS: ASPIRIN 81 MG ECTAB PO SCH (08:10)
[2023-08-13] MEDS: PANTOprazole 40 MG TAB PO SCH (08:10)
[2023-08-13] MEDS: FLUoxetine HCL 10 MG CAP PO SCH (08:10)
[2023-08-13] MEDS: ERGOCALCIFEROL 50,000 UNITS 1250 MCG CAP PO SCH (08:10)
[2023-08-13] MEDS: DOXYCYCLINE HYCLATE 100 MG in DEXTROSE 5% MINI-B 100 ML IV SCH (08:11)
[2023-08-13] MEDS: guaiFENesin 600 MG TABCR PO SCH (08:11)
[2023-08-13] MEDS: DOCUSATE SODIUM 100 MG CAP PO SCH (08:11)
[2023-08-13] MEDS: APIXABAN 2.5 MG TAB PO SCH (08:11)
[2023-08-13] MEDS: AMIODARONE 200 MG TAB PO SCH (08:11)
[2023-08-13] MEDS: METOPROLOL TARTRATE 25 MG TAB PO SCH (08:11)
[2023-08-13 14:53] LABS: Ehrlichia chaff DNA Bld Negative (Negative)
--- NOTE | 2023-08-13 19:33 | Electrocardiogram Report ---
Test Reason : Blood Pressure : / mmHG Vent. Rate : 062 BPM Atrial Rate : 062 BPM P-R Int : 210 ms QRS Dur : 144 ms QT Int : 490 ms P-R-T Axes : 063 -23 142 degrees QTc Int : 497 ms Sinus rhythm with 1st degree A-V block Left bundle branch block Abnormal ECG When compared with ECG of 12-AUG-2023 05:51, No significant change was found Confirmed by Isaiah Latham ([id number]) on 08/13/2023 7:33:01 PM Referred By: REFERRED SELF Confirmed By:Karel Latham
== END 2023-08-13 10:41 | DRG 871 ==
LOC: ED 05:30 → SUATTDRO 11:56 → EDINP 11:56 → 2S 13:29

== ENCOUNTER 2023-10-28 13:39 | Inpatient (IN) ==
--- OUTSIDE RECORDS SUMMARY | 2023-10-28 13:45 | External Medical Summary | Summary of Care ---
Author Name Unknown Organization [facility] Address [address] [place] [address] Phone [phone] Care Team Providers Care Certified Recreational Therapist Name Role Phone Klaus Douglas MD Primary Care Provider [phone] Reason for Visit * Reason Comments Follow Up 10-12 WEEK F/U DIL O U, OCT OD * Precert (Routine) - Authorized Specialty Diagnoses / Procedures Referred By Renae alcala Referred To Contact Ophthalmology Diagnoses Exudative age-related macular degeneration of right eye with active choroidal neovascularization (HCC) Procedures INJECTION OF EYE DRUG INECTION,BEVACIZUMAB, 10 MG Isaiah Valle DO [address] [place] [address] Referral ID Status Reason Start Date Expiration Date V isits Requested Visits Authorized [id number] Authorized Precert 2020 09/16/2099 99 99 Encounter Details Date Type Department Care Team (Late st Contact Info) Description 10/01/2023 10:30 AM EST Office Visit Ophthalmology, [facility] [address] [place] [address] Isaiah Valle DO [address] [facility] [place] [address] Exudative age-related macular degeneration of right eye with active choroidal neovascularization (HCC)*; 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 documented as of this encounter (statuses as of 10/01/2023) Medications Medication Sig Dispensed Refills Start Date [...] mouth daily. 30 Tab 11 1 Active Fluticasone-Umeclid in-Vilant 100-62.5-25 MCG/INH Aerosol Powder [...] dental exam 12 Capsule 3 2 Active Ondansetron 4 MG Oral Tablet Disintegrating (Zofran)Indications :S/P laparoscopic cholecystectomy,Miguel Ángel sea TAKE 1-2 TABLETS BY MOUTH EVERY 8 HOURS NEEDED FOR NAUSEA 30 Tablet 3 2 Active Vitamin D (Ergocalciferol) 1.25 MG (67755 UT) Oral Capsule (Drisdol)Indication s:Vitamin D deficiency TAKE 1 CAPSULE BY MOUTH ONE TIME PER WEEK 12 Capsule 3 3 Active Furosemide 20 MG Oral Tablet (Lasix) TAKE BY MOUTH 1 TABLET ONCE A DAY ON SUNDAY, SUNDAY, AND SUNDAY ONLY . 15 Tablet 1 3 Active Metoprolol Succinate ER 25 MG Oral Tablet Extended Release 24 Hour (toPROL XL) Take 0.5 Tablets by mouth in the morning. 45 Tablet 1 3 Active Additional Information Patient taking differently:12.5 mg OralBID (.AM/PM), Reported on 08/28/2023 FLUoxetine HCl 10 MG Oral Capsule (PROzac) Take 1 Capsule by mouth in the morning. 90 Capsule 1 3 Active Simvastatin 20 MG Oral Tablet (Zocor) TAKE BY MOUTH 1 TABLET IN THE EVENING. 90 Tablet 1 3 Active Pantoprazole Sodium 20 MG Oral Tablet Delayed Release (Protonix) TAKE 1 TABLET BY MOUTH IN THE MORNING AND IN THE EVENING 180 Tablet 1 3 Active amLODIPine Besylate 10 MG Oral Tablet (Norvasc) TAKE BY MOUTH 1/2 TABLETS IN THE MORNING. 45 Tablet 3 3 Active Amiodarone HCl 200 MG Oral Tablet (Cordarone) Take 1 Tablet by mouth in the morning and 1 Tablet before bedtime. 0 Active Apixaban 2.5 MG Oral Tablet (Eliquis) Take by mouth 2 times a day. 0 Active Atorvastatin Calcium 10 MG Oral Tablet (Lipitor) Take 1 Tablet by mouth at bedtime. 0 Active Omeprazole 20 MG Oral Capsule Delayed Release (PriLOSEC) Take 1 Capsule by mouth in the morning and 1 Capsule before bedtime. 0 Active guaiFENesin ER 600 MG Oral Tablet Extended Release 12 Hour (Mucinex) Take 1 Tablet by mouth in the morning and 1 Tablet before bedtime. 0 Active Nystatin 904029 UNIT/GM External Powder (Nystop) Apply topically to affected area 3 times a day. Apply to affected area of right lower abdomen for up to 4 weeks. 45 g 0 4 Active HYDROcodone-Acetami nophen 5-325 MG Oral TabletIndications:C hronic bilateral low back pain without sciatica Take 1 Tablet by mouth every 8 hours as needed for Pain, Mild or Pain, Severe. 90 Tablet 0 4 Active Zolpidem Tartrate 5 MG Oral Tablet (Ambien)Indications :Primary insomnia Take 1 Tablet by mouth at bedtime as needed for Sleep. 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 Vitamin D deficiency 11/21/2008 Unilateral inguinal hernia 05/30/2007 Gastroesophageal reflux disease 07/02/2001 documented as of this encounter (statuses as of 10/01/2023) Resolved Problems Problem Noted Date Diagnosed Date [...] as of this encounter (statuses as of 10/01/2023) Immunizations Name Administration Dates Next Due COVID-19 mRNA, LNP-s, No Pre serve, 2-Dose Series (Flint and Tinder) 08/24/2021,11/26/2020,11/05/2020 Covid-19, Mrna, Lnp-s, Pf, B ivalent, 30 Mcg, IM, 12 yrs and above (Pfizer) 09/28/2022 Pneumococcal Conjugate Vacc, 13 Valent (Prevnar) 11/03/2014 Season Influenza, Quad, PF, Adjuvanted, 65+ Yrs, IM (FLUAD) 07/01/2020 Seasonal Influenza, PF, 6 M & above, IM , (FluLaval or Fluzone) 06/27/2018,07/02/2017 Seasonal Influenza, Quadriva lent Hd (Fluzone [...] of this encounter Progress Notes * Isaiah Valle DO - 10/01/2023 10:30 AM EST [facility] [place] Nursing notes reviewed. Eye vitals reviewed. Mood and Affect: normal HPI: Makenna Harris is an 88 year old female who presents for AMD No other eye complaints. Denies significant pain. Base Eye Exam Visual Acuity (Snellen - Linear) Right Left Dist cc 20/300 -1 20/800 -1 Dist ph cc NI NI Correction: Glasses Tonometry (Tonopen, 10:35 AM) Right Left Pressure 18 16 Pupils Dark Light Shape React APD Right 3.5 3 Round Sluggish None Left 4 4 Round Minimal None Visual Pena (Counting fingers) Right Left Full Full Extraocular Movement Right Left Full, Ortho Full, Ortho Neuro/Psych Oriented x3: Yes Mood/Affect: Normal Dilation Both eyes: 0.5% Proparacaine @ 10:35 AM Dilation #2 Both eyes: 1.0% Mydriacyl, 2.5% Phenylephrine @ 10:35 AM Dilation Comments Patient cautioned that effects [...] OD: drusen/atrophy, no cme/srlfuid - STABLE, prior STABLE, prior STABLE OS: 10/30/2022 resolved SRFluid, +drusen/atrophy/fibrosis/ORT - stable A/P: 1. Age-related macular degeneration OD: wet - s/p Avastin (06/13/23, 04/02/23, 01/16/23, 10/30/22, 08/16/22, 06/08/22, 04/11/22, 02/09/22, 12/15/21, 10/17/21, 08/22/21, 06-21-21, -01-05, -12-05, 12-22-20, 11-02-20, 09-07-20, 07/28/20, 06/22/20)--improved - 16 weeks since last injection OS: wet - s/p Eylea OS (07/19/16, 06/07/16, 03/14/16, 01/04/16, 11/09/15, 09/22/15, 08/23/15) -no benefit to further injections OS -ex-smoker -recommend AREDS2 MVI as directed and Amsler grid qday -had low vision eval w/ Dr. Chelsey Flores 2. Pseudophakia OU -stable, by Dr. Levi I have provided a significant and separately identifiable visit with today's procedure because a medically necessary exam was performed on the eye that did not undergo the procedure. -submitted DL-13 on 12/22/20 TIMEOUT PROCEDURE: correct [...] performed the procedure in its entirety. F/u 14-16 weeks - dilate OU and OCT OD Isaiah Valle DO 0124 CC: Daniela Leyva OD PCP: Klaus Douglas MD documented in this encounter Nursing Notes * Zeeshan Marshall COA - 10/01/2023 11:00 AM EST Makenna Harris to receive # 20 Avastin 1.25mg Injection of the Right eye. Correct eye confirmed with patient and marked by Isaiah Valle DO Avastin 1.25mg lot # [id number] Exp. Date: 10/18/23 * Nae Ceballos RN - 10/01/2023 10:28 AM EST Makenna Harrsi is a 88 year old year old female who presents for AMD OU. Last Office Visit: 06/13/2023 (in office), Visit date not found (telemedicine) Patient currently states no change in vision. Are you diabetic? No Do you drive? no OCT image(s) of right eye acquired and filed/scanned into chart. documented in this encounter Plan of Treatment Upcoming Encounters Date Type Department Care Team (Late st Contact Info) Description 10/17/2023 9:30 AM EST Office Visit Cardiology, [facility] [address] [facility] [place] [address] Kiah Jenkins CRNP [address] [place] [address] 12/10/2023 10:15 AM EDT Office Visit Ophthalmology, [facility] [address] [place] [address] Isaiah Valle DO [address] [place] [address] 01/22/2024 8:40 AM EDT Office Visit [facility] [address] [place] [facility] [place] [id number] Klaus Douglas MD [address] [place] [address] Scheduled Orders Name Type Priority Associated Diagnoses Orde r Schedule RETINA SCAN DIAGNOSTIC IMAGE, POSTERIOR Procedures Routine Exudative age-related macular degeneration of right eye with active choroidal neovascularization (HCC) Ordered: 10/01/2023 Scheduled Procedures Name Priority Associated Diagnoses Date/Ti me ESOPHAGOGASTRODUODENOSCOPY ( EGD), FLEXIBLE, TRANSORAL, DIAGNOSTIC Recall Esophageal dysphagia Health Maintenance Due Date Last Done Comments Alpha-1 Antitrypsin 1953 Zoster Vaccines (2 of 2) 07/25/2013 05/30/2013, 05/18 COVID-19 Vaccine ( season) 2023 09/28/2022, 08/24/2021, 11/26/2020, Additional history exists Depression Screening 09/20/2023 09/20/2022 Albumin/Creatinine Ratio 07/23/2024 07/23/2023, 12/2021 CKD PHOS USE SMARTSET 94883 07/23/202402/2023, 07/21/2022, 05/03/2021, Additional history exists CKD HGB USE SMARTSET 31797 08/14/202408/14, 07/23/2023, 07/21/2022, Additional history exists O2 ASSESSMENT COMPLETED IN PAST YEAR FOR COPD 08/28/2024 08/28/2023 DTaP,Tdap,and Td Vaccines (2 - Td or [...] eye with active choroidal neovascularization (HCC)- Primary 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 (HCC) documented in this encounter Administered Medications Active Administered Medications - up to 3 most recent administrations Medication Order MAR Action Action Date Dose Rate Site bevaCIZumab (Avastin) inj 1.25 mg 1.25 mg, Intravitreal, PRN Other, Starting on Sun06/13/23 at 1355, Until Simran 06/12/24 at 1354, For 365 days Given 10/01/2023 11:02 AM EST 1.25 mg Eye Right Given 06/13/2023 1:56 PM EDT 1.25 mg Ey e Right ROPivacaine (Naropin) inj 1.5 mg 1.5 mg, Injection, PRN Other, Starting on Sun06/13/23 at 1355, Until Simran 06/12/24 at 1354, For 365 days Given 10/01/2023 11:02 AM EST 1.5 mg Eye Right Given 06/13/2023 1:57 PM EDT 1.5 mg Ey e Right documented in this encounter Advance Directives [...] and were consensually agreed upon. Care Teams Certified Recreational Therapist Relationship Specialty Start Date End Date Klaus Douglas MD [address] [place] [address] PCP - General 07/02/01 documented as of this encounter
--- OUTSIDE RECORDS SUMMARY | 2023-10-28 13:45 | External Medical Summary ---
Author Name Unknown Address Unknown Organization [id number]:[facility] [place] [address] [facility] [place] [address] Laboratory Report Ordering Provider Test Date Status JONH EMMANUELLEONIDAS 10/15/2023 12:11:09 Final Observation Date Value Abnormality Reference (Units ) Status BUN 10/15/2023 12:11:09 10 6-20 (mg/dL) Final Creatinine 10/15/2023 12:11:09 1.2 Above high normal 0.5-1.0 (mg/dL) Final Glomerular filtration rate/1.73 sq M.predicted [Volume Rate/Area] in Serum, Plasma or Blood by Creatinine-based formula (CKD-EPI) 10/15/2023 12:11:09 46 Below low normal >=60 (mL/min) Final eGFR is calculated based on the CKD-EPI 2020 equation SODIUM 10/15/2023 12:11:09 141 135-146 (m mol/L) Final Potassium 10/15/2023 12:11:09 4.0 3.5-5.1 (m mol/L) Final Cl 10/15/2023 12:11:09 99 98-107 (mm ol/L) Final CO2 10/15/2023 12:11:09 31 22-32 (mmo l/L) Final Anion gap 10/15/2023 12:11:09 11 7-15 (mmol /L) Final Glucose 10/15/2023 12:11:09 103 70-120 (mg /dL) Final Albumin 10/15/2023 12:11:09 3.1 Below low normal 3.8 -5.0 (g/dL) Final AST (Aspartate aminotransferase) 10/15/2023 12:11:09 14 10-35 (U/L) Fin al Result may be falsely elevat ed due to hemolysis. Alk Phos 10/15/2023 12:11:09 79 35-130 (U/ L) Final Bilirubin, Total 10/15/2023 12:11:09 0.5 <=1 .2 (mg/dL) Final Calcium 10/15/2023 12:11:09 9.0 8.4-10.2 ( mg/dL) Final Protein 10/15/2023 12:11:09 5.6 Below low normal 6.0 -8.3 (g/dL) Final ALT (Alanine aminotransferase) 10/15/2023 12:11:09 <5 Below low normal 10-35 (U/L) Final Performing Location [facility] [place] [facility] [place] [address] [facility] [place] [address]
--- OUTSIDE RECORDS SUMMARY | 2023-10-28 13:45 | External Medical Summary ---
Author Name Unknown Address Unknown Organization [id number]:[facility] [place] - [address] [place] [address] Laboratory Report Ordering Provider Test Date Status TINY EMMANUEL 10/15/2023 12:11:09 Final Observation Date Value Abnormality Reference (Units ) Status TSH 10/15/2023 12:11:09 2.27 0.27-4.20 (uIU/mL) Final Performing Location LABORATORY C - [address] [place] [address]
--- OUTSIDE RECORDS SUMMARY | 2023-10-28 13:45 | External Medical Summary | Summary of Care ---
Author Name Unknown Organization [facility] Address [address] [place] [address] Phone [phone] Care Team Providers Care Metal Trim Erector Name Role Phone Klaus Douglas MD Primary Care Provider [phone]- [phone] Reason for Referral * Evaluate & Treat - Unlimited Visits (Within 30 days (routine)) - Authorized Specialty Diagnoses / Procedures Referred By Contact Referred To Contact Cardiovascular Medicine / Cardiology Diagnoses PAF (paroxysmal atrial fibrillation) (HCC) Klaus Douglas MD [address] [place] [address] Referral ID Status Reason Start Date Expiration Date Visits Requested Visits Authorized [id number] Authorized Specialty Services Required 3 [phone] Question Answer Referral Priority Within 30 days (routine) Where should this appointment be scheduled? [facility] To which of the following clinics are you referring your patient? General Cardiology Clinic Reason for Visit * Reason Onset Date Comments Hospital Follow-Up Recent discha aissatou from [facility] Follow-Up 09/24/2023 Encounter Details Date Type Department Care Team (Late st Contact Info) Description 08/28/2023 2:00 PM EST [facility] [address] [facility] [phone] Klaus Douglas MD [address] [place] [facility] [place] [address] Pneumonia due to infectious organism, unspecified laterality, unspecified part of lung*; Anaplasmosis; Risk and functional assessment; PAF (paroxysmal atrial fibrillation) ([facility]); Primary insomnia; Hospital discharge follow-up Allergies Active Allergy Reactions Criticality Noted Date Comments Atenolol 06/15/1999 stomach pain Lisinopril 06/27/2010 hyperkalemia Sulfa Antibiotics 2020 Sulfamethoxazole 10/19/2006 Tingling, itch, s.o.b. documented as of this encounter (statuses as of 09/24/2023) Medications Medication Sig Dispensed Refills Start Date [...] mouth daily. 14 Each 0 05/04/2021 Active Additional Information Patient not taking.Reported on 08/28/2023 Aspirin EC 81 MG Oral Tablet Delayed Release Take 1 Tab by mouth daily. 30 Tab 11 05/30/2021 Active Fluticasone-Umeclid in-Vilant 100-62.5-25 MCG/INH Aerosol Powder [...] 08/24/2022 Active Vitamin D (Ergocalciferol) 1.25 MG (37972 UT) Oral Capsule (Drisdol)Indication s:Vitamin D deficiency [...] 4 PM 270 Tablet 2 04/24/2023 Active Additional Information Patient not taking.Reported on 08/28/2023 Metoprolol Succinate ER 25 MG Oral Tablet Extended Release 24 Hour (toPROL XL) Take 0.5 Tablets by mouth in the morning. 45 Tablet 1 05/11/2023 Active Additional Information Patient taking differently:12.5 mg [...] THE EVENING 180 Tablet 1 07/23/2023 Active Additional Information Patient not taking.Reported on 08/28/2023 amLODIPine Besylate 10 MG Oral Tablet (Norvasc) TAKE BY MOUTH 1/2 TABLETS IN THE MORNING. 45 Tablet 3 07/23/2023 Active Additional Information Patient not taking.Reported on 08/28/2023 Amiodarone HCl 200 MG Oral Tablet (Cordarone) [...] 1 Tablet before bedtime. 0 Active Nystatin 547455 UNIT/GM External Powder (Nystop) Apply topically to affected area 3 times a day. Apply to affected area of right lower abdomen for up to 4 weeks. 45 g 0 08/01/2021 4 Discontinu ed(Refill) Zolpidem Tartrate 5 MG Oral Tablet (Ambien)Indications :Primary insomnia Take 1 Tablet by mouth at bedtime as needed for Sleep. 10 Tablet 0 07/23/2023 3 Discontinu ed(Refill) HYDROcodone-Acetami nophen 5-325 MG Oral TabletIndications:C hronic bilateral low back pain without sciatica Take 1 Tablet by mouth every 8 hours as needed for Pain, Mild or Pain, Severe. 90 Tablet 0 08/27/2023 4 Discontinu ed(Refill) Zolpidem Tartrate 5 MG Oral Tablet (Ambien)Indications :Primary insomnia Take 1 Tablet by mouth at bedtime as needed for Sleep. 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 Vitamin D deficiency 11/21/2008 Unilateral inguinal hernia 05/30/2007 Gastroesophageal reflux disease 07/02/2001 documented as of this encounter (statuses as of 09/24/2023) Resolved Problems Problem Noted Date Diagnosed Date [...] as of this encounter (statuses as of 09/24/2023) Immunizations Name Administration Dates Next Due COVID-19 mRNA, LNP-s, No Pre serve, 2-Dose Series (Litbloc) 08/24/2021,11/26/2020,11/05/2020 Covid-19, Mrna, Lnp-s, Pf, B ivalent, [...] Sign Reading Time Taken Comments Blood Pressure 134/60 08/28/2023 1:59 PM EST Pulse 63 08/28/2023 1:59 PM EST Temperature 36.3 C (97.3 F) 08/28/2023 1:59 PM ES T Respiratory Rate 20 08/28/2023 1:59 PM EST Oxygen Saturation 94% 08/28/2023 1:59 PM EST Inhaled Oxygen Concentration - - Weight 73.7 kg (162 lb 6.4 oz) 08/28/2023 1:59 P M EST Height 154.9 cm (5' 1") 08/28/2023 1:59 PM EST Body Mass Index 30.69 08/28/2023 1:59 PM EST documented in this encounter Functional Status [...] No 05/15/2019 documented as of this encounter Patient Instructions * Patient Instructions* Georgia Alfredo LPN - 08/28/2023 1:58 PM EST Patient Instructions - Fall Prevention (This education is for all patients over 65 regardless of symptoms) Remember to take your current medications as prescribed. In order to prevent falls, you are encouraged to: Exercise Utilize assistive/adaptive devices Avoid multifocal lenses when walking Avoid hazards in home Maintain a regular toileting schedule Any questions please contact our office. Preventing Falls in the Home (This education is for all patients over 65 regardless of symptoms) As you get older, falls are more likely. Thats because your reaction time slows. Your muscles and joints may also get stiffer, making them less flexible. Illness, medications, and vision changes can also affect your balance. A fall could leave you unable to live on your own. To make your home safer, follow these tips: Floors Put nonskid pads under area rugs Remove throw rugs Replace worn floor coverings Tack carpets firmly to each step on carpeted stairs. Put nonskid strips on the edges of uncarpeted stairs Keep floors and stairs free of clutter and cords Arrange furniture so there are clear pathways Clean up any spills right away Bathrooms Install grab bars in the tub or shower Apply nonskid strips or put a nonskid rubber mat in the tub or shower Sit on a bath chair to bathe Use bathmats with nonskid backing Lighting Keep a flashlight in each room Put a nightlight along the pathway between the bedroom and the bathroom Gabrielasam Patient Education Copyright 2008 - 2010 Andrea except where otherwise noted Preventing Falls: Exercises to Improve Balance, Flexibility, Strength, and Staying Power (This education is for all patients over 65 regardless of symptoms) Certain types of exercises may help make you less likely to fall. Try the ones below. Or do other exercises that your healthcare provider suggests. Depending on your health, you may need to start slowly. Dont let that stop you. Even small amounts of exercise can help you. Be sure to talk to yourhealthcare provider before starting any exercise program. Improve Balance Many types of exercise can help improve balance. Cuauhtemoc chi and yoga are good examples. Heres another one to try. You can do it anytime and almost anywhere. Stand next to a counter or solid support. Push yourself up onto your tiptoes. Hold for 5 seconds. If you start to lose your balance, hold on to the counter. Rest and repeat 5 times. Work up to holding for 20 to 30 seconds, if you can. Increase Flexibility Being more flexible makes it easier for you to move around safely. Try exercises like the seated hamstring stretch. Sit in a chair and put one foot on a stool. Straighten your leg and reach with both hands down either side of your leg. Reach as far down your leg as you can. Hold for about 20 seconds. Go back to the starting position. Then repeat 5 times. Switch legs. Build Strength Resistance exercises help build strength. You can do them without equipment. Or you can use weights, elastic bands, or special machines. One such exercise is called the biceps curl. You can hold a 1 pound weight or even a can of soup. Do this exercise at least 3 times a week. Strive for everyday. Sit up straight in a chair. Keep your elbow close to your body and your wrist straight. Bend your arm, moving your hand up to your shoulder. Then slowly lower your arm. Repeat 5 times. Switch to the other arm. Build Your Staying Power Aerobic exercises make your heart and lungs stronger so you can keep moving longer. Walking and swimming are two of the best types of exercises you can do. Using a stationary bike is great, too. Find an aerobic exercise that you enjoy. Start slowly and build up. Even 5 minutes is helpful. Aimfor a goal of 30 minutes, at least 3 times a week. You dont have to do 30 minutes in one session. Break it up and walk a little throughout the day. More Helpful Tips Start easy. Slowly work up to doing more. Talk with your healthcare provider about the best exercises for you. Call senior centers or health clubs about exercise programs. If needed, have a family member watch you walk every so often to check your stability. Exercise with a friend. Choose an activity you both enjoy. Try exercises that you can do anytime, anywhere. Here are two examples. Have someone with you when you first try these: Practice walking by placing one foot right in front of the other. Stand up and sit down 10 times. Repeat this throughout the day. Andrea Patient Education Copyright 2009 - 2010 Andrea except where otherwise noted. Preventing Falls: Moving Safely Using a Cane or Walker (This education is for all patients over 65 regardless of symptoms) Keep the cane away from your feet so you dont trip. A walking aid, such as a cane or walker, can help you stay more independent and avoid falls. Remember to keep your walking aid within easy reach when youre in a chair or in bed. And learn how to use it safely so you dont injure yourself. Using a Cane If you have a stronger side, hold the cane on that side. Get your balance. Move the cane and your weaker leg forward. Support your weight on both the cane and your weaker side. Step with your stronger leg. Start again from step 1. If youre using a folding walker, be sure you know how to lock it open. Check that its locked open before each use. Using a Walker Roll the walker (or lift it, if youre using one without wheels) forward about 12 inches. Step forward with your weaker leg first. Use the walker to help keep your balance. Bring your other foot forward to the center of the walker. Start again from step 1. Helpful Tips Check with your healthcare provider about the right walking aid to use. Ask about a walker with a seat attached. Check the tips of your cane or walker to make sure they have nonskid covers. Move slowly from room to room. Dont ritchie. Sit down to get dressed. Use a arjun pack or backpack to keep your hands free. Get help for jobs that mean climbing, even on a stepstool. Andrea Patient Education Copyright 2008 - 2010 Andrea except where otherwise noted. Urinary Incontinence Plan of Care Documentation: (This education is for all patients over 65 regardless of symptoms) Current medications reconciled. Patient encouraged to: Practice kegal exercises Provide education materials Use the restroom every 2 hours throughout the day Limit caffeine, alcohol, spicy foods and acidic foods Keep a bladder diary Limit fluid intake 3-4 hours before bed Lose weight Prevent constipation Take fluid pills at a time when you can get to the bathroom quickly Control sugar better if diabetic Limit fluid intake to 60 oz. per day Wear support stockings (TEDs)if you have edema Georgia Alfredo LPN 08/28/2023 Kegel Exercises Kegel exercises dont require special clothing or equipment. Theyre easy to learn and simple to do. And if you do them right, no one can tell youre doing them, so they can be done almost anywhere. Your doctor, nurse, or physical therapist can answer any questions you have and help you get started. A Weak Pelvic Floor The pelvic floor muscles may weaken due to aging, and vaginal childbirth, injury, surgery, chronic cough, or lack of exercise. If the pelvic floor is weak, your bladder and other pelvic organs may sag out of place. The urethra may also open too easily and allow urine to leak out. Kegel exercises can help you strengthen your pelvic floor muscles so they can better support the pelvic organs and control urine flow. How Kegel Exercises Are Done Try each of the Kegel exercises described below. When youre doing them, try not to move your leg, buttock, or stomach muscles. While youre urinating, try to stop the flow of urine. Start and stop it as often as you can. Contract as if you were stopping your urine stream, but do it when youre not urinating. Tighten your rectum as if trying not to pass gas. Contract your anus, but dont move your buttocks. Helpful Hints Do your Kegels as often as you can. The more you do them, the faster youll feel the results. Pick an activity you do often as a reminder. For instance, do your Kegels every time you sit down. Tighten your pelvic floor before you sneeze, get up from a chair, cough, laugh, or lift. This protects your pelvic floor from injury and can help prevent urine leakage. Try to hold each Kegel for a slow count to five. You probably wont be able to hold them for thatlong at first, but keep practicing. It will get easier as your pelvic floor gets stronger. Eventually, special weights that you place in your vagina may be recommended to help make your Kegels even more effective. Andrea Patient Education Copyright 2008 - 2010 Andrea except where otherwise noted. Here are some helpful tips for your urinary incontinence: (This education is for all patients over 65 regardless of symptoms) Practice Kegel exercises Use the restroom every 2 hours throughout the day Limit caffeine, alcohol, spicy foods, and acidic foods Keep a bladder diary Limit fluid intake 3-4 hours before bed Lose weight Prevent constipation Take fluid pills at a time when can get to the bathroom quickly Control sugar better if diabetic Limit fluid intake to 60 oz. per day Any questions, please feel free to contact our office. documented in this encounter Progress Notes * Klaus Douglas MD - 09/24/2023 7:40 PM EST Subjective: Makenna Harris is a 88 year old female here today for Chief Complaint Patient presents with Hospital Follow-Up Recent discharge from [facility] Hospital Follow-Up Pt presents for follow up from hospitalization and [facility] rehab stay. Hospitalized at [facility] 08/05/23 - 08/13/23 for pneumonia, anaplasmosis. She responded to treatments. She was discharged to [facility] for further rehab 08/13/23 - 08/20/23. No complications developed while at rehab. Is now back home. No acute complaints. 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 LAST PFT -01/05/10 Dyslipidemia, goal LDL below 100 07/14/2015 Dyslipidemia, goal to be determined Esophageal reflux 07/02/2001 External hemorrhoids with other complication Exudative macular degeneration (HCC) 11/09/2015 Generalized osteoarthritis right knee HEMORRHOIDS, EXTERNAL W/O COMPLICATIONS 07/02/2001 HTN, goal below 140/90 07/02/2001 HTN, goal to be determined Kidney disease, chronic, stage III (GFR 30-59 ml/min) ([facility]) 11/10/2013 Per CKD protocol #1 Obesity, [...] by Juan David Gates MD at ENDOSCOPY [facility] CORONARY ANGIOGRAPHY W/LEFT HEART CATH Right 01/27/2019 CORONARY ANGIOGRAPHY W/LEFT HEART CATH performed by Jackie Pastrana MD at [facility] CORONARY ANGIOGRAPHY W/RIGHT+LEFT CATH Right 07/10/2017 CORONARY ANGIOGRAPHY W/RIGHT+LEFT CATH performed by Noel Bearden MD at [facility] EGD, FLEXIBLE, DIAGNOSTIC N/A 10/05/2022 [facility], EGD, Tortuous esophagus, non-bleeding gastric ulcer / no specimens collected / repeat in 8 weeks. EGD, FLEXIBLE, DIAGNOSTIC N/A 11/22/2022 [facility]< EGD, antral gastritis, z-line regular [...] Dr. Valle LAPAROSCOPY; CHOLECYSTECTOMY 03/16/2014 laparoscopic cholecyst[facility] 03/16/14 MISCELLANEOUS ORDER ([facility] ONLY) Left 08/23/2015 [...] by Noel Bearden MD at [facility] REPLACE AORTIC VALVE, PERCUTANEOUS FEMORAL 05/15/2019 REPLACE AORTIC VALVE, PERCUTANEOUS FEMORAL performed by Addy Prieto MD at [facility] STRESS ECHO (DOBUTAMINE) 10/2004 [...] mouth every 8 hours. 30 Tab 0 Aspirin EC 81 MG Oral Tablet Delayed Release Take 1 Tab by mouth daily. 30 Tab 011 Bcrrlogdljw-Iyaqllkpm-Fsqukm 100-62.5-25 MCG/INH Aerosol Powder Breath Activated (TRELEGY [...] Tablet 3 Vitamin D (Ergocalciferol) 1.25 MG (62153 UT) Oral Capsule (Drisdol) TAKE 1 CAPSULE BY MOUTH ONE TIME PER WEEK 12 Capsule 3 Furosemide 20 MG Oral Tablet (Lasix) TAKE BY MOUTH 1 TABLET ONCE A DAY ON SUNDAY, SUNDAY, AND SUNDAY ONLY . 15 Tablet 1 Metoprolol Succinate ER 25 MG Oral Tablet Extended Release 24 Hour (toPROL XL) Take 0.5 Tablets by mouth in the morning. (Patient taking differently: Take 0.5 Tablets by mouth in the morning and 0.5 Tablets before bedtime.) 45 Tablet 1 FLUoxetine HCl 10 MG Oral Capsule (PROzac) Take 1 Capsule by mouth in the morning. 90 Capsule 1 Simvastatin 20 MG Oral Tablet (Zocor) TAKE BY MOUTH 1 TABLET IN THE EVENING. 90 Tablet 1 Amiodarone HCl 200 MG Oral Tablet (Cordarone) Take 1 Tablet by mouth in the morning and 1 Tablet before bedtime. Apixaban 2.5 MG Oral Tablet (Eliquis) Take by mouth 2 times a day. Atorvastatin Calcium 10 MG Oral Tablet (Lipitor) Take 1 Tablet by mouth at bedtime. Omeprazole 20 MG Oral Capsule Delayed Release (PriLOSEC) Take 1 Capsule by mouth in the morning and1 Capsule before bedtime. guaiFENesin ER 600 MG Oral Tablet Extended Release 12 Hour (Mucinex) Take 1 Tablet by mouth in the morning and 1 Tablet before bedtime. Polyethylene Glycol 3350 17 GM Oral Packet (Miralax) Take 1 Packet by mouth daily. (Patient not taking: Reported on 08/28/2023) 14 Each 0 Isosorbide Dinitrate 20 MG Oral Tablet (Isordil) TAKE 1 TABLET BY MOUTH EVERY MORNING TAKE 1 TABLETAT NOON, AND 1 TAB BEFORE BEDTIME, AT 8 AM, 12 NOON, AND 4 PM (Patient not taking: Reported on 08/28/2023) 270 Tablet 2 Pantoprazole Sodium 20 MG Oral Tablet Delayed Release (Protonix) TAKE 1 TABLET BY MOUTH IN THE MORNING AND IN THE EVENING (Patient not taking: Reported on 08/28/2023) 180 Tablet 1 amLODIPine Besylate 10 MG Oral Tablet (Norvasc) TAKE BY MOUTH 1/2 TABLETS IN THE MORNING. (Patient not taking: Reported on 08/28/2023) 45 Tablet 3 Nystatin 497857 UNIT/GM External Powder (Nystop) Apply topically to affected area 3 times a day. Apply to affected area of right lower abdomen for up to 4 weeks. 45 g 0 HYDROcodone-Acetaminophen 5-325 MG Oral Tablet Take 1 Tablet by mouth every 8 hours as needed for Pain, Mild or Pain, Severe. 90 Tablet 0 Zolpidem Tartrate 5 MG Oral Tablet (Ambien) Take 1 Tablet by mouth at bedtime as needed for Sleep. 30 Tablet 0 Current Facility-Administered Medications Medication Dose [...] 1.5 mg at 06/13/23 1357 Objective: BP 134/60 | Pulse 63 | Temp 36.3 C (97.3 F) (Temporal Artery) | Resp 20 | Ht 1.549 m(5' 1") | Wt 73.7 kg (162 lb 6.4 oz) | SpO2 94% | BMI 30.69 kg/m | BSA 1.78 m GEN: NAD HEENT: Benign NECK: Supple with no LAD, TM, JVD CHEST: CTA B CV: RRR ABD: Soft, NT/ND, No HSM, NABS EXT: No c,c,e Assessment and Plan: Pneumonia due to infectious organism, unspecified laterality, unspecified part of lung (Primary) Anaplasmosis -completed treatments and improved. Risk and functional assessment PAF (paroxysmal atrial fibrillation) (HCC) - CARDIOLOGY REFERRAL OP Primary insomnia -continue current meds Hospital discharge follow-up - DISCH MED RECON CUR MED LIS Check-out note: cardiology 40 min with pt and chart review. Klaus Douglas MD documented in this encounter Nursing Notes * Georgia Alfredo LPN - 08/28/2023 1:58 PM EST The patient has been properly identified by confirmation of name and date of . Chief Complaint Patient presents with Hospital Follow-Up Recent discharge from [facility] documented in this encounter Plan of Treatment Upcoming Encounters Date Type Department Care Team (Late st Contact Info) Description 10/17/2023 9:30 AM EST Office Visit Cardiology, [facility] [address] [place] [address] Kiah Jenkins CRNP [address] [place] [address] 01/22/2024 8:40 AM EDT Office Visit [address] [id number] Klaus Douglas MD [address] [place] [address] Scheduled Procedures Name Priority Associated Diagnoses Date/Ti me ESOPHAGOGASTRODUODENOSCOPY ( EGD), FLEXIBLE, TRANSORAL, DIAGNOSTIC Recall Esophageal dysphagia Scheduled Referrals Name Type Priority Associated Diagnoses Orde r Schedule CARDIOLOGY REFERRAL OP Referral Within 30 days (routine) PAF (paroxysmal atrial fibrillation) (HCC) Ordered: 08/28/2023 Health Maintenance Due Date Last Done Comments Alpha-1 Antitrypsin 1953 Zoster Vaccines (2 of 2) 07/25/2013 05/30/2013, 05/18 COVID-19 Vaccine ( season) 2023 09/28/2022, 08/24/2021, 11/26/2020, Additional history exists Depression Screening 09/20/2023 09/20/2022 Albumin/Creatinine Ratio 07/23/2024 07/23/2023, 12/2021 CKD PHOS USE SMARTSET 91402 07/23/202402/2023, 07/21/2022, 05/03/2021, Additional history exists CKD HGB USE SMARTSET 21876 08/14/202408/14, 07/23/2023, 07/21/2022, Additional history exists O2 [...] as of this encounter Visit Diagnoses Diagnosis Pneumonia due to infectious organism, unspecified laterality, unspecified part of lung- Primary Anaplasmosis Other ehrlichiosis Risk and functional assessment Screening for unspecified condition PAF (paroxysmal atrial fibrillation) (HCC) Atrial fibrillation Primary insomnia Persistent disorder of initiating or maintaining sleep Hospital discharge follow-up Other follow-up examination documented in this encounter Advance Directives Latest [...] and were consensually agreed upon. Care Teams Metal Trim Erector Relationship Specialty Start Date End Date Klaus Douglas MD [address] [place] [address] PCP - General 07/02/01 documented as of this encounter
--- OUTSIDE RECORDS SUMMARY | 2023-10-28 13:45 | External Medical Summary | Summary of Care ---
Author Name Unknown Organization [facility] Address [address] [place] [address] Phone [phone] Care Team Providers Care Surface Water Technician Name Role Phone Klaus Douglas MD Primary Care Provider [phone] Encounter Details Date Type Department Care Team (Late st Contact Info) Description 10/19/2023 Orders Only PATIENT PORTAL DO NOT DELETE THIS DEPT USED BY JENNIE MARTELL [id number] Allergies Active Allergy Reactions Criticality Noted Date Comments Atenolol 06/15/1999 stomach pain Lisinopril 06/27/2010 hyperkalemia Sulfa Antibiotics 2020 Sulfamethoxazole 10/19/2006 Tingling, itch, s.o.b. documented as of this encounter (statuses as of 10/19/2023) Medications Medication Sig Dispensed Refills Start Date [...] Active Additional Information Patient not taking.Reported on 10/15/2023 Aspirin EC 81 MG Oral Tablet Delayed Release Take 1 Tab by mouth daily. 30 Tab 11 05/30/2021 Active Fluticasone-Umeclidin -Vilant 100-62.5-25 MCG/INH Aerosol Powder [...] 08/24/2022 Active Vitamin D (Ergocalciferol) 1.25 MG (83839 UT) Oral Capsule (Drisdol)Indications: Vitamin D deficiency TAKE 1 CAPSULE BY MOUTH ONE TIME PER WEEK 12 Capsule 3 10/24/2022 Active FLUoxetine HCl 10 MG Oral Capsule (PROzac) Take 1 Capsule by mouth in the morning. 90 Capsule 1 05/11/2023 Active Pantoprazole Sodium 20 MG Oral Tablet Delayed Release (Protonix) TAKE 1 TABLET BY MOUTH IN THE MORNING AND IN THE EVENING 180 Tablet 1 07/23/2023 Active Omeprazole 20 MG Oral Capsule Delayed Release (PriLOSEC) Take 1 Capsule by mouth in the morning and 1 Capsule before bedtime. 0 Active guaiFENesin ER 600 MG Oral Tablet Extended Release 12 Hour (Mucinex) Take 1 Tablet by mouth in the morning and 1 Tablet before bedtime. 0 Active Nystatin 291433 UNIT/GM External Powder (Nystop) Apply topically to affected area 3 times a day. Apply to affected area of right lower abdomen for up to 4 weeks. 45 g 0 09/20/2023 Active Additional Information Patient not taking.Reported on 10/17/2023 HYDROcodone-Acetamino phen 5-325 MG Oral TabletIndications:Chr onic bilateral low back pain without sciatica Take 1 Tablet by mouth every 8 hours as needed for Pain, Mild or Pain, Severe. 90 Tablet 0 09/20/2023 Active Zolpidem Tartrate 5 MG Oral Tablet (Ambien)Indications:P rimary insomnia Take 1 Tablet by mouth at bedtime as needed for Sleep. 30 Tablet 1 10/15/2023 Active Amiodarone HCl 200 MG Oral Tablet (Cordarone)Indication s:PAF (paroxysmal atrial fibrillation) (HCC),Nonobstructive atherosclerosis of coronary artery,S/P TAVR (transcatheter aortic valve replacement),HTN, goal below 140/90,Dyslipidemia, goal LDL below 70 Take 1 Tablet by mouth in the morning. 90 Tablet 3 10/17/2023 Active amLODIPine Besylate 5 MG Oral Tablet (Norvasc)Indications: PAF (paroxysmal atrial fibrillation) (HCC),Nonobstructive atherosclerosis of coronary artery,S/P TAVR (transcatheter aortic valve replacement),HTN, goal below 140/90,Dyslipidemia, goal LDL below 70 Take 1 Tablet by mouth in the morning. 90 Tablet 3 10/17/2023 Active Apixaban 5 MG Oral Tablet (Eliquis)Indications: PAF (paroxysmal atrial fibrillation) (HCC),Nonobstructive atherosclerosis of coronary artery,S/P TAVR (transcatheter aortic valve replacement),HTN, goal below 140/90,Dyslipidemia, goal LDL below 70 Take 1 Tablet by mouth in the morning and 1 Tablet before bedtime. 180 Tablet 3 10/17/2023 Active Atorvastatin Calcium 10 MG Oral Tablet (Lipitor)Indications: PAF (paroxysmal atrial fibrillation) (HCC),Nonobstructive atherosclerosis of coronary artery,S/P TAVR (transcatheter aortic valve replacement),HTN, goal below 140/90,Dyslipidemia, goal LDL below 70 Take 1 Tablet by mouth at bedtime. 90 Tablet 3 10/17/2023 Active Furosemide 20 MG Oral Tablet (Lasix)Indications:PA F (paroxysmal atrial fibrillation) (HCC),Nonobstructive atherosclerosis of coronary artery,S/P TAVR (transcatheter aortic valve replacement),HTN, goal below 140/90,Dyslipidemia, goal LDL below 70 Take 1 Tablet by mouth once a day on Sunday, Sunday, and Sunday only. 90 Tablet 3 10/17/2023 Active Metoprolol Succinate ER 25 MG Oral Tablet Extended Release 24 Hour (toPROL XL)Indications:PAF (paroxysmal atrial fibrillation) (HCC),Nonobstructive atherosclerosis of coronary artery,S/P TAVR (transcatheter aortic valve replacement),HTN, goal below 140/90,Dyslipidemia, goal LDL below 70 Take 0.5 Tablets by mouth in the morning and 0.5 Tablets before bedtime. 90 Tablet 3 10/17/2023 Active Hospital, Clinic, or Other Facility Administered [...] as of this encounter (statuses as of 10/19/2023) Active Problems Problem Noted Date Diagnosed Date [...] dysfunction 07/26/2017 Coronary artery disease invo lving [place] coronary artery without angina pectoris 07/26/2017 Osteoarthritis of left knee 06/07/2016 Hypertension 04/12/2016 Exudative macular degeneration 11/09/2015 Obesity, Class I, BMI 30.0-34.9 (see actual BMI) 07/03/2013 Overview: bmi= 31.86 07/03/13 Osteoporosis 02/19/2013 Stenosis of carotid artery 07/26/2012 Dyslipidemia 09/01/2009 Overview: Per Lipid Taxonomy. Vitamin D deficiency 11/21/2008 Unilateral inguinal hernia 05/30/2007 Gastroesophageal reflux disease 07/02/2001 documented as of this encounter (statuses as of 10/19/2023) Resolved Problems Problem Noted Date Diagnosed Date [...] use disorder 07/27/2000 001 Respiratory symptoms 07/27/2000 10/08/2 013 Overview: ICD-10 update of inactive term documented as of this encounter (statuses as of 10/19/2023) Immunizations Name Administration Dates Next Due COVID-19 [...] Care Team (Late st Contact Info) Description 12/10/2023 10:15 AM EDT Office Visit Ophthalmology, [facility] [address] [place] [id number] Isaiah Valle DO [address] [place] [address] 01/01/2024 1:30 PM EDT Office Visit Gastroenterology, [facility] [address] [place] [address] Елена Matson CRNP [address] [place] [address] 01/22/2024 8:40 AM EDT Office Visit [address] [place] [address] [facility] [address] [facility] [address] 04/08/2024 5:40 PM EDT [facility] [place] [address] [facility] [phone] [facility] [address] [facility] [address] Scheduled Procedures Name Priority Associated Diagnoses Date/Ti me ESOPHAGOGASTRODUODENOSCOPY ( EGD), FLEXIBLE, TRANSORAL, DIAGNOSTIC Recall Esophageal dysphagia Health Maintenance Due Date Last Done Comments Alpha-1 Antitrypsin 1953 Zoster Vaccines (2 of 2) 07/25/2013 05/30/2013, 05/18 COVID-19 Vaccine ( season) 2023 09/28/2022, 08/24/2021, 11/26/2020, Additional history exists Depression Screening 09/20/2023 09/20/2022 *BISPHONATE OR OTHER ACCEPTABLE MEDICATION NEEDED FOR OSTEOPOROSIS (REFER TO SMARTSET #1146) 10/18/2023 Albumin/Creatinine Ratio 07/23/2024 07/23/2023, 1112/2021 CKD PHOS USE SMARTSET 26515 07/23/202402/2023, 07/21/2022, 05/03/2021, Additional history exists CKD HGB USE SMARTSET 12966 10/15/202410/15, 08/14/2023, 07/23/2023, Additional history exists O2 ASSESSMENT COMPLETED IN PAST YEAR FOR COPD 10/15/2024 10/15/2023 DTaP,Tdap,and Td Vaccines (2 - Td or [...] and were consensually agreed upon. Care Teams Surface Water Technician Relationship Specialty Start Date End Date Klaus Douglas MD [address] [place] [facility] [place] [address] PCP - General 07/02/01 documented as of this encounter
--- OUTSIDE RECORDS SUMMARY | 2023-10-28 13:45 | External Medical Summary | Summary of Care ---
Author Name Unknown Organization [facility] Address [address] [place] [address] Phone [phone] Care Team Providers Care Regional Transfer Liaison Name Role Phone Klaus Douglas MD Primary Care Provider [phone] Reason for Visit * Reason Comments Follow Up Encounter Details Date Type Department Care Team (Latest Contact Info) Description 10/17/2023 9:30 AM EST Office Visit Cardiology, [facility] [address] [facility] [place] [address] Kiah Jenknis CRNP [address] [facility] [place] [address] PAF (paroxysmal atrial fibrillation) ([facility])*; Nonobstructive atherosclerosis of coronary artery; S/P TAVR (transcatheter aortic valve replacement); HTN, goal below 140/90; Dyslipidemia, goal LDL below 70; Diastolic dysfunction Allergies Active Allergy Reactions Criticality Noted Date Comments Atenolol 06/15/1999 stomach pain Lisinopril 06/27/2010 hyperkalemia Sulfa Antibiotics 2020 Sulfamethoxazole 10/19/2006 Tingling, itch, s.o.b. documented as of this encounter (statuses as of 10/17/2023) Medications Medication Sig Dispensed Refills Start Date [...] mouth every 8 hours. 30 Tab 0 05/04/20 21 Active Polyethylene Glycol 3350 17 GM Oral Packet (Miralax) Take 1 Packet by mouth daily. 14 Each 0 05/04/20 21 Active Additional Information Patient not taking.Reported on 10/15/2023 Aspirin EC 81 MG Oral Tablet Delayed Release Take 1 Tab by mouth daily. 30 Tab 11 05/30/20 21 Active Fluticasone-Umeclid in-Vilant 100-62.5-25 MCG/INH Aerosol Powder [...] prior to dental exam 12 Capsule 3 06/23/20 22 Active Ondansetron 4 MG Oral Tablet Disintegrating (Zofran)Indications :S/P laparoscopic cholecystectomy,Miguel Ángel sea TAKE 1-2 TABLETS BY MOUTH EVERY 8 HOURS NEEDED FOR NAUSEA 30 Tablet 3 08/24/20 22 Active Vitamin D (Ergocalciferol) 1.25 MG (29761 UT) Oral Capsule (Drisdol)Indication s:Vitamin D deficiency TAKE 1 CAPSULE BY MOUTH ONE TIME PER WEEK 12 Capsule 3 10/24/19 23 Active FLUoxetine HCl 10 MG Oral Capsule (PROzac) Take 1 Capsule by mouth in the morning. 90 Capsule 1 05/11/20 23 Active Pantoprazole Sodium 20 MG Oral Tablet Delayed Release (Protonix) TAKE 1 TABLET BY MOUTH IN THE MORNING AND IN THE EVENING 180 Tablet 1 07/23/20 23 Active Omeprazole 20 MG Oral Capsule Delayed Release (PriLOSEC) Take 1 Capsule by mouth in the morning and 1 Capsule before bedtime. 0 Active guaiFENesin ER 600 MG Oral Tablet Extended Release 12 Hour (Mucinex) Take 1 Tablet by mouth in the morning and 1 Tablet before bedtime. 0 Active Nystatin 801853 UNIT/GM External Powder (Nystop) Apply topically to affected area 3 times a day. Apply to affected area of right lower abdomen for up to 4 weeks. 45 g 0 09/20/19 24 Active Additional Information Patient not taking.Reported on 10/17/2023 HYDROcodone-Acetami nophen 5-325 MG Oral TabletIndications:C hronic bilateral low back pain without sciatica Take 1 Tablet by mouth every 8 hours as needed for Pain, Mild or Pain, Severe. 90 Tablet 0 09/20/19 24 Active Zolpidem Tartrate 5 MG Oral Tablet (Ambien)Indications :Primary insomnia Take 1 Tablet by mouth at bedtime as needed for Sleep. 30 Tablet 1 10/15/19 24 Active Amiodarone HCl 200 MG Oral Tablet (Cordarone)Indicati ons:PAF (paroxysmal atrial fibrillation) (HCC),Nonobstructiv e atherosclerosis of coronary artery,S/P TAVR (transcatheter aortic valve replacement),HTN, goal below 140/90,Dyslipidemia , goal LDL below 70 Take 1 Tablet by mouth in the morning. 90 Tablet 3 10/17/19 24 Active amLODIPine Besylate 5 MG Oral Tablet (Norvasc)Indication s:PAF (paroxysmal atrial fibrillation) (HCC),Nonobstructiv e atherosclerosis of coronary artery,S/P TAVR (transcatheter aortic valve replacement),HTN, goal below 140/90,Dyslipidemia , goal LDL below 70 Take 1 Tablet by mouth in the morning. 90 Tablet 3 10/17/19 24 Active Apixaban 5 MG Oral Tablet (Eliquis)Indication s:PAF (paroxysmal atrial fibrillation) (HCC),Nonobstructiv e atherosclerosis of coronary artery,S/P TAVR (transcatheter aortic valve replacement),HTN, goal below 140/90,Dyslipidemia , goal LDL below 70 Take 1 Tablet by mouth in the morning and 1 Tablet before bedtime. 180 Tablet 3 10/17/19 24 Active Atorvastatin Calcium 10 MG Oral Tablet (Lipitor)Indication s:PAF (paroxysmal atrial fibrillation) (HCC),Nonobstructiv e atherosclerosis of coronary artery,S/P TAVR (transcatheter aortic valve replacement),HTN, goal below 140/90,Dyslipidemia , goal LDL below 70 Take 1 Tablet by mouth at bedtime. 90 Tablet 3 10/17/19 24 Active Furosemide 20 MG Oral Tablet (Lasix)Indications: PAF (paroxysmal atrial fibrillation) (HCC),Nonobstructiv e atherosclerosis of coronary artery,S/P TAVR (transcatheter aortic valve replacement),HTN, goal below 140/90,Dyslipidemia , goal LDL below 70 Take 1 Tablet by mouth once a day on Sunday, Sunday, and Sunday only. 90 Tablet 3 10/17/19 24 Active Metoprolol Succinate ER 25 MG Oral Tablet Extended Release 24 Hour (toPROL XL)Indications:PAF (paroxysmal atrial fibrillation) ([facility]),Nonobstructiv e atherosclerosis of coronary artery,S/P TAVR (transcatheter aortic valve replacement),HTN, goal below 140/90,Dyslipidemia , goal LDL below 70 Take 0.5 Tablets by mouth in the morning and 0.5 Tablets before bedtime. 90 Tablet 3 10/17/19 24 Active Furosemide 20 MG Oral Tablet (Lasix) TAKE BY MOUTH 1 TABLET ONCE A DAY ON SUNDAY, SUNDAY, AND SUNDAY ONLY . 15 Tablet 1 03/19/20 23 024 Discontinued(Re fill) Metoprolol Succinate ER 25 MG Oral Tablet Extended Release 24 Hour (toPROL XL) Take 0.5 Tablets by mouth in the morning. 45 Tablet 1 05/11/20 23 024 Discontinued(Re fill) Simvastatin 20 MG Oral Tablet (Zocor) TAKE BY MOUTH 1 TABLET IN THE EVENING. 90 Tablet 1 06/11/20 23 024 Discontinued amLODIPine Besylate 10 MG Oral Tablet (Norvasc) TAKE BY MOUTH 1/2 TABLETS IN THE MORNING. 45 Tablet 3 07/23/20 23 024 Discontinued(Re fill) Amiodarone HCl 200 MG Oral Tablet (Cordarone) Take 1 Tablet by mouth in the morning and 1 Tablet before bedtime. 0 024 Discontinued(Re fill) Apixaban 2.5 MG Oral Tablet (Eliquis) Take by mouth 2 times a day. 0 024 Discontinued(Re fill) Atorvastatin Calcium 10 MG Oral Tablet (Lipitor) Take 1 Tablet by mouth at bedtime. 0 024 Discontinued(Re fill) Hospital, Clinic, or Other Facility Administered Medication [...] as of this encounter (statuses as of 10/17/2023) Active Problems Problem Noted Date Diagnosed Date [...] dysfunction 07/26/2017 Coronary artery disease invo lving [place] coronary artery without angina pectoris 07/26/2017 Osteoarthritis of left knee 06/07/2016 Hypertension 04/12/2016 Exudative macular degeneration 11/09/2015 Obesity, Class I, BMI 30.0-34.9 (see actual BMI) 07/03/2013 Overview: bmi= 31.86 07/03/13 Osteoporosis 02/19/2013 Stenosis of carotid artery 07/26/2012 Dyslipidemia 09/01/2009 Overview: Per Lipid Taxonomy. Vitamin D deficiency 11/21/2008 Unilateral inguinal hernia 05/30/2007 Gastroesophageal reflux disease 07/02/2001 documented as of this encounter (statuses as of 10/17/2023) Resolved Problems Problem Noted Date Diagnosed Date [...] as of this encounter (statuses as of 10/17/2023) Immunizations Name Administration Dates Next Due COVID-19 mRNA, LNP-s, No Pre serve, 2-Dose Series (Talentwise) 08/24/2021,11/26/2020,11/05/2020 Covid-19, Mrna, Lnp-s, Pf, B ivalent, [...] Sign Reading Time Taken Comments Blood Pressure 124/82 10/17/2023 9:27 AM EST Pulse 68 10/17/2023 9:27 AM EST Temperature - - Respiratory Rate - - Oxygen Saturation - - Inhaled Oxygen Concentration - - Weight 69.4 kg (153 lb) 10/17/2023 9:27 AM EST Height - - Body Mass Index 28.91 10/15/2023 11:10 AM EST documented in this encounter Functional [...] this encounter Patient Instructions * Patient Instructions* Kiah Jenkins CRNP - 10/17/2023 9:42 AM EST TO DO: Reduce amiodarone to 200 mg (1 tablet) daily in the morning. Increase Eliquis to 5 mg twice daily (use up your supply). Start Lasix 20 mg every Sunday- Sun - Sunday ONLY Repeat blood work in 2 weeks in [place] documented in this encounter Progress Notes * Kiah Jenkins CRNP - 10/17/2023 9:30 AM EST Cardiology Outpatient Visit 10/17/2023 Primary Travel Med Surg Rn: Dr. Singh Past medical history: Mild nonobstructive CAD per cardiac catheterization 01/27/2019 Calcific aortic stenosis, status post TAVR (# 23 mm Aldridge Brice S3 valve), 05/16/2019 Left bundle branch block noted post TAVR 05/27/2019 Carotid artery stenosis, less than 50% stenosis BL, per duplex 06/2023 CKD stage 3 COPD Former smoker- quit in 2014 Hypertension Dyslipidemia, LDL goal below 70 Chronic diastolic CHF GERD History of TIA History of syncope No concerning dysrhythmias noted on Zio 05/2021 History of traumatic subarachnoid hemorrhage in the setting of dual anti- platelet therapy with aspirin and Plavix Paroxysmal atrial fibrillation, diagnosed in the setting of pneumonia and anaplasmosis, 07/2023 Self converted to normal sinus rhythm and placed on amiodarone for prevention. [id number] score of 8 (age 3, female, HTN, CAD, TIA 2, CHF) , on reduced dose Eliquis for age andrenal function. HPI 88-year-old female presenting to the cardiology office today in routine follow- up. Was last evaluated by Dr. Singh approximately 2 months ago. At this time there was concern for shortness of breath. An echocardiogram was ordered however, a week later patient presented to [facility] Emergency Department and was found to have pneumonia. She was treated with IV antibiotics. On presentation she was found to be in atrial fibrillation with RVR (new dx). Heparin was started for stroke prevention. Rates were treated with IV metoprolol and diltiazem. Patient self converted back to sinus rhythm with a 3.2second conversion pause. Was started on IV amiodarone for prevention of PAF and eventually transitioned to oral. Volume status while inpatient was managed with IV Lasix. Of note, she was also found to have anaplasmosis-- treatment per ID (ce). She was discharged to rehab on 08/13/2023 and is now back home as of 08/20/2023. Multiple medication changes were made inpatient. Started: Amiodarone 200 mg twice daily Metoprolol tartrate 12.5 mg twice daily Atorvastatin 10 mg daily Eliquis 2.5 mg twice daily Discontinued: Imdur 20 mg daily Amlodipine 10 mg daily Metoprolol succinate 25 mg daily Simvastatin 20 mg daily Today the patient presents with her . Somewhat of a poor historian and is very hard of hearing. Has been helps with much of the appointment as well as medications at home. She currently declines any chest pain. Has been mildly short of breath and requiring more oxygen. No palpitations. Denies lightheadedness or dizziness. No orthopnea, PND, or increased lower extremity edema. No fever, chills, cough, hematochezia, melena, or hemoptysis. Unfortunately there is some confusion with her medications-- however, she is compliant. Current Outpatient Medications Medication Sig Dispense Refill Multiple Vitamins-Minerals (PRESERVISION AREDS 2) Capsule Take 1 Capsule by mouth in the morning and 1 Capsule before bedtime. Ipratropium-Albuterol 20-100 MCG/ACT Inhalation Aerosol Solution Inhale 1 Puff by mouth in the morning and 1 Puff at noon and 1 Puff in the evening and 1 Puff before bedtime. Aspirin EC 81 MG Oral Tablet Delayed Release Take 1 Tab by mouth daily. 30 Tab 011 Xkgwmeovxwi-Xsomtgzxs-Bchwfn 100-62.5-25 MCG/INH Aerosol Powder Breath Activated (TRELEGY [...] Tablet 3 Vitamin D (Ergocalciferol) 1.25 MG (49340 UT) Oral Capsule (Drisdol) TAKE 1 CAPSULE BY MOUTH ONE TIME PER WEEK 12 Capsule 3 FLUoxetine HCl 10 MG Oral Capsule (PROzac) Take 1 Capsule by mouth in the morning. 90 Capsule 1 Pantoprazole Sodium 20 MG Oral Tablet Delayed Release (Protonix) TAKE 1 TABLET BY MOUTH IN THE MORNING AND IN THE EVENING 180 Tablet 1 Omeprazole 20 MG Oral Capsule Delayed Release (PriLOSEC) Take 1 Capsule by mouth in the morning and1 Capsule before bedtime. guaiFENesin ER 600 MG Oral Tablet Extended Release 12 Hour (Mucinex) Take 1 Tablet by mouth in the morning and 1 Tablet before bedtime. HYDROcodone-Acetaminophen 5-325 MG Oral Tablet Take 1 Tablet by mouth every 8 hours as needed for Pain, Mild or Pain, Severe. 90 Tablet 0 Zolpidem Tartrate 5 MG Oral Tablet (Ambien) Take 1 Tablet by mouth at bedtime as needed for Sleep. 30 Tablet 1 Amiodarone HCl 200 MG Oral Tablet (Cordarone) Take 1 Tablet by mouth in the morning. 90 Tablet 3 amLODIPine Besylate 5 MG Oral Tablet (Norvasc) Take 1 Tablet by mouth in the morning. 90 Tablet 3 Apixaban 5 MG Oral Tablet (Eliquis) Take 1 Tablet by mouth in the morning and 1 Tablet before bedtime. 180 Tablet 3 Atorvastatin Calcium 10 MG Oral Tablet (Lipitor) Take 1 Tablet by mouth at bedtime. 90 Tablet 3 Furosemide 20 MG Oral Tablet (Lasix) Take 1 Tablet by mouth once a day on Sunday, Sunday, and Sunday only. 90 Tablet 3 Metoprolol Succinate ER 25 MG Oral Tablet Extended Release 24 Hour (toPROL XL) Take 0.5 Tablets by mouth in the morning and 0.5 Tablets before bedtime. 90 Tablet 3 Albuterol Sulfate HFA 108 (90 Base) MCG/ACT Inhalation Aerosol Solution Inhale 2 Puffs by mouth every 6 hours as needed for Shortness of Breath or Wheezing. Acetaminophen 325 MG Oral Tablet (Tylenol) Take 3 Tabs by mouth every 8 hours. 30 Tab 0 Polyethylene Glycol 3350 17 GM Oral Packet (Miralax) Take 1 Packet by mouth daily. (Patient not taking: Reported on 10/15/2023) 14 Each 0 Nystatin 382678 UNIT/GM External Powder (Nystop) Apply topically to affected area 3 times a day. Apply to affected area of right lower abdomen for up to 4 weeks. 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 LAST PFT -01/05/10 Dyslipidemia, goal LDL below 100 07/14/2015 Dyslipidemia, goal to be determined Esophageal reflux 07/02/2001 External hemorrhoids with other complication Exudative macular degeneration ([facility]) 11/09/2015 Generalized osteoarthritis right knee HEMORRHOIDS, EXTERNAL W/O COMPLICATIONS 07/02/2001 HTN, goal below 140/90 07/02/2001 HTN, goal to be determined Kidney disease, chronic, stage III (GFR 30-59 ml/min) ([facility]) 11/10/2013 Per CKD protocol #1 Obesity, Class [...] by Juan David Gates MD at ENDOSCOPY [facility] CORONARY ANGIOGRAPHY W/LEFT HEART CATH Right 01/27/2019 CORONARY ANGIOGRAPHY W/LEFT HEART CATH performed by Jackie Pastrana [place] at [facility]ARY [place]GIOGRAPHY W/RIGHT+LEFT CATH Right 07/10/2017 CORONARY ANGIOGRAPHY W/RIGHT+LEFT CATH performed by Noel Bearden MD at [facility]GD, FLEXIBLE, DIAGNOSTIC N/A 10/05/2022 [facility], EGD, Tortuous esophagus, non-bleeding gastric ulcer / no specimens collected / repeat in 8 weeks. EGD, FLEXIBLE, DIAGNOSTIC N/A 11/22/2022 [facility]< EGD, antral gastritis, z-line regular 38 cm [...] Right 08/16/2022 # 15 Avastin OD, Dr. Cessna INJECTION OF EYE DRUG Right 10/30/2022 #16 Avastin OD; Tori INJECTION OF EYE DRUG Right 01/16/2023 # [address] Valle INJECTION OF EYE DRUG Right 04/02/2023 # 18 Avastin OD, Dr. Valle INJECTION OF EYE DRUG Right 06/13/2023 # 19 Avastin OD, Dr. Valle INJECTION OF EYE DRUG Right 10/01/2023 # 20 Avastin OD, Dr. Valle LAPAROSCOPY; CHOLECYSTECTOMY 03/16/2014 laparoscopic cholecystectomy [facility] 03/16/14 MISCELLANEOUS ORDER ([facility] ONLY) Left [...] AVASTIN OU CONSENT DR. VALLE/ANTWAN EXP. 08/16/2023 OTHER (INFORMATION) Bilateral AVASTIN CONSENT SIGNED EXP10/01/24, /ANTWAN REMOVE TONSILS & ADENOIDS, UNDER 12 T & A, age<12 REPLACE AORTIC VALVE, PERCUTANEOUS FEMORAL Bilateral 05/15/2019 REPLACE AORTIC VALVE, PERCUTANEOUS FEMORAL performed by Noel Bearden MD at [facility] [place] REPLACE AORTIC VALVE, PERCUTANEOUS FEMORAL 05/15/2019 REPLACE AORTIC VALVE, PERCUTANEOUS FEMORAL performed by Addy Prieto MD at [facility] STRESS ECHO (DOBUTAMINE) 10/2004 No stress-induced changes TOTAL ABD HYSTERECTOMY W/WO REMOVAL OF TUBE(S) 03/1973 not sure if ovaries remain TOTAL HIP REPLACEMENT & PROSTHESIS 11/21/2004 Right Hip Replacement Social History Tobacco Use Smoking status: Former Packs/day: 2.00 Years: 60.00 Additional pack years: 0.00 Total pack years: 120.00 Types: Cigarettes Quit date: 02/21/2015 Years since quittin.6 Smokeless tobacco: Never Vaping Use Vaping Use: Never used Substance Use Topics Alcohol use: No Drug use: No Review of patient's allergies indicates: Allergen Reactions Atenolol stomach pain Lisinopril hyperkalemia Sulfa Antibiotics Sulfamethoxazole Tingling, itch, s.o.b. Review of Systems: See HPI for pertinent positives. All others negative, other than those noted in HPI. Physical Exam BP 124/82 | Pulse 68 | Wt 69.4 kg (153 lb) | BMI 28.91 kg/m | BSA 1.73 m General: No acute distress. A+Ox3. HEENT: Normocephalic. Atraumatic. Conjunctiva and sclera clear. NECK: No carotid bruits. No JVD. Carotid upstrokes are brisk. Heart: RRR. S1 and S2 noted without murmur, rubs, gallops. PMI non displaced. Lungs: +crackles in BL lung bases. No wheezing or rhonchi. Abdomen: Normal bowel sounds. Soft. Nontender. No masses or organomegaly. No abdominal bruits. Extremities: No edema. No clubbing or cyanosis. Pulses: radial=2/4, posterior tibial=2/4, dorsalis pedis = 2/4. NEURO: No focal deficits. PSYCH: Normal. Lab data/imaging study review: Echo 08/06/2023 at [facility] LVEF 50-55% Left bundle-branch block noted Moderate concentric LVH Status post TAVR--Gradients normal Grade 1 diastolic dysfunction Impression/Plan: 1. Nonobstructive atherosclerosis of coronary artery -Mild nonobstructive CAD per cardiac catheterization 01/27/2019 -Stable, no angina. Continue aspirin 81 mg daily 2. S/P TAVR (transcatheter aortic valve replacement) -Calcific aortic stenosis, status post TAVR (# 23 mm Aldridge Brice S3 valve), 05/16/2019 -Left bundle branch block noted post TAVR 05/27/2019 1. Continue ASA 81 mg daily 2. Antibiotics are needed for all dental work: Amoxicillin 2g- Take 4 capsules 1 hour prior to any dental work. 3. PAF (paroxysmal atrial fibrillation) (HCC) -Paroxysmal atrial fibrillation, diagnosed in the setting of pneumonia and anaplasmosis, 07/2023. Self converted to normal sinus rhythm and placed on amiodarone for prevention. -[id number] score of 8 (age 3, female, HTN, CAD, TIA 2, CHF) , on reduced dose Eliquis for age and renal function. 1. Continue metoprolol succinate 12.5 mg twice daily 2. Reduce amiodarone to 200 mg daily 3. Renal function improved increase Eliquis to 5 mg twice daily, repeat BMP and CBC in 2 weeks 4. HTN, goal below 140/90 Controlled. No medication changes needed at this time 1. Norvasc was discontinued during hospitalization, but patient remains on 5 mg daily-- okay to continue for now. 5. Dyslipidemia, goal LDL below 70 -LDL controlled (61), 07/2023 Continue atorvastatin 10 mg daily 6. Chronic diastolic CHF -Patient with mild dyspnea + fine crackles in BL lung bases. -NYHA class 3 1. Not currently taking Lasix-- restart 20 mg MWF only due to mild VELIZ. BMP in 2 weeks. Patient Instructions TO DO: Reduce amiodarone to 200 mg (1 tablet) daily in the morning. Increase Eliquis to 5 mg twice daily (use up your supply). Start Lasix 20 mg every Sunday- Sun - Sunday ONLY Repeat blood work in 2 weeks in [place] The patient agrees to the above plan and will call with additional questions or concerns. ER with all emergencies advised. Follow-up: Return in about 3 months (around 01/15/2024). | Check-out note: BHAVIN I spent a total of 45 minutes on the date of service in preparation, delivery, and documentation ofthe care provided to Makenna Harris excluding any time spent in the performance of separately billedservices. ERWIN [facility], Department of Cardiology This chart was completed in part utilizing [employer] Speech Voice Recognition Software. Grammatical errors, random [...] documented in this encounter Nursing Notes * Barbie Mackenzie CMA - 10/17/2023 9:25 AM EST Examination Room: 7 Name: Makenna Harris Date of : (1935) Reason for Visit: 6m Interim Hospitalization(s): none Problems/Concerns: denied Chest Pain/SOB: denied chest pain, but does have SOB. My [facility] is a way you can talk to [...] 12/10/2023 10:15 AM EDT Office Visit Ophthalmology, [facility] [address] [place] [address] Isaiah Valle DO [address] [place] [address] 01/01/2024 1:30 PM EDT Office Visit Gastroenterology, [facility] [address] [place] [address] Елена Matson CRNP [address] [place] [address] 01/22/2024 8:40 AM EDT [facility] Visit [facility] [address] [facility] [phone] Klaus Douglas MD [address] [facility] [place] [id number] 04/08/2024 5:40 PM EDT Office Visit [facility] [address] [facility] [place] [address] Klasu Douglas MD [address] [place], [place] [id number] Scheduled Orders Name Type Priority Associated Diagnoses Orde r Schedule EKG COMPLETE (TRACING AND INTERP) EKG Routine PAF (paroxysmal atrial fibrillation) ([facility]) Ordered: 10/17/2023 CBC Lab Routine PAF (paroxysmal atrial fibrillation) ([facility]) Nonobstructive atherosclerosis of coronary artery S/P TAVR (transcatheter aortic valve replacement) HTN, goal below 140/90 Dyslipidemia, goal LDL below 70 Expected: 10/31/2023 (Approximate), Expires: 10/17/2024 BASIC METABOLIC PANEL Lab Routine PAF (paroxysmal atrial fibrillation) ([facility]) Nonobstructive atherosclerosis of coronary artery S/P TAVR (transcatheter aortic valve replacement) HTN, goal below 140/90 Dyslipidemia, goal LDL below 70 Expected: 10/31/2023 (Approximate), Expires: 10/17/2024 LIPID PANEL WITH DIRECT LDL IF TG IS HIGH Lab Routine PAF (paroxysmal atrial fibrillation) ([facility]) Nonobstructive atherosclerosis of coronary artery S/P TAVR (transcatheter aortic valve replacement) HTN, goal below 140/90 Dyslipidemia, goal LDL below 70 Expected: 10/31/2023 (Approximate), Expires: 10/17/2024 Scheduled Procedures Name Priority Associated Diagnoses Date/Ti me ESOPHAGOGASTRODUODENOSCOPY ( EGD), FLEXIBLE, TRANSORAL, DIAGNOSTIC Recall Esophageal dysphagia Health Maintenance Due Date Last Done Comments Alpha-1 Antitrypsin 1953 Zoster Vaccines (2 of 2) 07/25/2013 05/30/2013, 05/18 COVID-19 Vaccine ( season) 2023 09/28/2022, 08/24/2021, 11/26/2020, Additional history exists Depression Screening 09/20/2023 09/20/2022 Albumin/Creatinine Ratio 07/23/2024 07/23/2023, 12/2021 CKD PHOS USE SMARTSET 22524 07/23/202402/2023, 07/21/2022, 05/03/2021, Additional history exists CKD HGB USE SMARTSET 42899 10/15/202410/15, 08/14/2023, 07/23/2023, Additional history exists O2 [...] as of this encounter Visit Diagnoses Diagnosis PAF (paroxysmal atrial fibrillation) (HCC)- Primary Atrial fibrillation Nonobstructive atherosclerosis of coronary artery S/P TAVR (transcatheter aortic valve replacement) Heart valve replaced by other means HTN, goal below 140/90 Unspecified essential hypertension Dyslipidemia, goal LDL below 70 Other and unspecified hyperlipidemia Diastolic dysfunction Heart disease, unspecified documented in [...] and were consensually agreed upon. Care Teams Regional Transfer Liaison Relationship Specialty Start Date End Date Klaus Douglas MD [address] [place] [address] PCP - General 07/02/01 documented as of this encounter"
--- OUTSIDE RECORDS SUMMARY | 2023-10-28 13:45 | External Medical Summary | Summary of Care ---
Author Name Unknown Organization [facility] Address [address] [place] [address] Phone [phone] Care Team Providers Care Rn Gynecology Name Role Phone Klaus Douglas MD Primary Care Provider +1- [phone] Reason for Visit * Reason Onset Date Comments Home Health 10/10/2023 Encounter Details Date Type Department Care Team (Late st Contact Info) Description 10/10/2023 Telephone [facility] [address] [place] [address] Klaus Douglas MD [address] [place] [address] Home Health Allergies Active Allergy Reactions Criticality Noted Date Comments Atenolol 06/15/1999 stomach pain Lisinopril 06/27/2010 hyperkalemia Sulfa Antibiotics 2020 Sulfamethoxazole 10/19/2006 Tingling, itch, s.o.b. documented as of this encounter (statuses as of 10/11/2023) Medications Medication Sig Dispensed Refills Start Date [...] mouth daily. 30 Tab 11 05/30/2021 Active Fluticasone-Umeclidi n-Vilant 100-62.5-25 MCG/INH Aerosol Powder [...] 08/24/2022 Active Vitamin D (Ergocalciferol) 1.25 MG (16776 UT) Oral Capsule (Drisdol)Indications :Vitamin D deficiency TAKE 1 CAPSULE BY MOUTH ONE TIME PER WEEK 12 Capsule 3 10/24/2022 Active Furosemide 20 MG Oral Tablet (Lasix) TAKE BY MOUTH 1 TABLET ONCE A DAY ON SUNDAY, SUNDAY, AND SUNDAY ONLY . 15 Tablet 1 03/19/2023 Active Metoprolol Succinate ER 25 MG Oral [...] THE MORNING. 45 Tablet 3 07/23/2023 Active Amiodarone HCl 200 MG Oral Tablet [...] 1 Tablet before bedtime. 0 Active Nystatin 225976 UNIT/GM External Powder (Nystop) Apply topically to affected area 3 times a day. Apply to affected area of right lower abdomen for up to 4 weeks. 45 g 0 09/20/2023 Active HYDROcodone-Acetamin ophen 5-325 MG Oral TabletIndications:Ch ronic bilateral low back pain without sciatica Take 1 Tablet by mouth every 8 hours as needed for Pain, Mild or Pain, Severe. 90 Tablet 0 09/20/2023 Active Zolpidem Tartrate 5 MG Oral Tablet (Ambien)Indications: Primary insomnia Take 1 Tablet by mouth at bedtime as needed for Sleep. 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 Vitamin D deficiency 11/21/2008 Unilateral inguinal hernia 05/30/2007 Gastroesophageal reflux disease 07/02/2001 documented as of this encounter (statuses as of 10/11/2023) Resolved Problems Problem Noted Date Diagnosed Date [...] as of this encounter (statuses as of 10/11/2023) Immunizations Name Administration Dates Next Due COVID-19 [...] shopping? (15 years old or older) No 08/29/20 19 Cognitive Status Response Date of Assessm ent Because of a physical, menta l, or emotional condition, do you have serious difficulty concentrating, remembering, or making decisions? (5 years old or older) No 05/15/2019 documented as of this encounter Miscellaneous Notes * Telephone Encounter - Veronique Irwin LPN - 10/11/2023 10:45 AM EST Enriqueta from [facility] is returning phone call and was made aware of message from PCP * Telephone Encounter - Renata Presley LPN - 10/11/2023 10:24 AM EST Enriqueta was not available and will return our call when she is back in the office. Please advise below. * Telephone Encounter - Klaus Douglas MD - 10/10/2023 3:47 PM EST Will make assessment of labs needed at ov after exam and discussion with pt * Telephone Encounter - Gema Torre LPN - 10/10/2023 10:40 AM EST HH Concerns Enriqueta ALICIA, Calling from: [facility] Report/Concerns of: Weight Loss Vitals: T 97.8 P 68 RR 18 BP 150/60 SP O2 97% 3LPM Weight 155.6lb Narrative: Enriqueta calling in stating that they did start of care on patient on 08/21/2023, patient weighed 178lbs. She is barely eating, she is weak, does not have strength. Enriqueta is concerned as she is a risk for falls and risk for injury as she is on Eliquis. Enriqueta requested appointment with PCP, scheduled for 10/15 at 11:00am. She would like to know if there is any labs that PCP would like done prior to appointment, HH could come come out to her house and draw them. Please advise Call back [facility] with any advice or orders at [phone] Please fax new orders to [phone] documented in this encounter Plan of Treatment Upcoming Encounters Date Type Department Care Team (Late st Contact Info) Description 10/15/2023 11:00 AM EST Office Visit [facility] [address] [place] [facility] [place] [id number] Klaus Douglas MD [address] [facility] [place] [address] 10/17/2023 9:30 AM EST Office Visit Cardiology, [facility] [address] [place] [address] Kiah Jenkins CRNP [address] [place] [address] 12/10/2023 10:15 AM EDT Office Visit Ophthalmology, [facility] [address] [facility] [place] [address] Isaiah Valle DO [address] [place] [address] 01/22/2024 8:40 AM EDT Office Visit [facility] [address] [facility] [phone] Klaus Douglas MD [address] [facility] [place] [address] Scheduled Procedures Name Priority Associated Diagnoses Date/Ti me ESOPHAGOGASTRODUODENOSCOPY ( EGD), FLEXIBLE, TRANSORAL, DIAGNOSTIC Recall Esophageal dysphagia Health Maintenance Due Date Last Done Comments Alpha-1 Antitrypsin 1953 Zoster Vaccines (2 of 2) 07/25/2013 05/30/2013, 05/18 COVID-19 Vaccine ( season) 2023 09/28/2022, 08/24/2021, 11/26/2020, Additional history exists Depression Screening 09/20/2023 09/20/2022 Albumin/Creatinine Ratio 07/23/2024 07/23/2023, 12/2021 CKD PHOS USE SMARTSET 58946 07/23/202402/2023, 07/21/2022, 05/03/2021, Additional history exists CKD HGB USE SMARTSET 79474 08/14/202408/14, 07/23/2023, 07/21/2022, Additional history exists O2 [...] were consensually agreed upon. Care Teams Rn Gynecology Relationship Specialty Start Date End Date Klaus Douglas MD [address] [place] [address] PCP - General 07/02/01 documented as of this encounter
--- OUTSIDE RECORDS SUMMARY | 2023-10-28 13:45 | External Medical Summary ---
Author Name Unknown Address Unknown Organization K01:[facility] - [facility] [address] [place] [address] Laboratory Report Ordering Provider Test Date Status TINY EMMANUEL 10/15/2023 12:11:09 Final Observation Date Value Abnormality Reference (Units ) Status WBC, Total 10/15/2023 12:11:09 8.37 4.00-10.80 (K/uL) Final RBC 10/15/2023 12:11:09 3.35 3.85-5.15 (M/uL) Final Hemoglobin 10/15/2023 12:11:09 10.5 Below low normal 12.0-15.3 (g/dL) Final HCT 10/15/2023 12:11:09 35.1 Below low normal 36.0-45.2 (%) Final MCV 10/15/2023 12:11:09 104.8 81.5-97.5 (fL) Final MCH 10/15/2023 12:11:09 31.3 27.0-34.0 (pg) Final MCHC 10/15/2023 12:11:09 29.9 32.0-36.0 (g/dL) Final RDW 10/15/2023 12:11:09 14.9 11.5-15.5 (%) Final Platelets 10/15/2023 12:11:09 288 140-400 (K/uL) Final MPV 10/15/2023 12:11:09 11.0 6.6-11.1 (fL) Final Nucleated erythrocytes/100 leukocytes [Ratio] in Blood by Automated count 10/15/2023 12:11:09 0 <=0 (/100 WBCs) Final Performing Location [facility] - [address] [place] [address]
--- OUTSIDE RECORDS SUMMARY | 2023-10-28 13:45 | External Medical Summary | Summary of Care ---
Author Name Unknown Organization [facility] Address [address] [place] [address] Phone [phone] Care Team Providers Care Overcoiler Name Role Phone Klaus Douglas MD Primary Care Provider +1- [phone] Reason for Visit * Reason Comments eRx-Medication Refill Encounter Details Date Type Department Care Team (Late st Contact Info) Description 09/25/2023 Refill [facility] [address] [place] [address] Klaus Douglas MD [address] [place] [address] Vitamin D deficiency Allergies Active Allergy Reactions Criticality Noted Date Comments Atenolol 06/15/1999 stomach pain Lisinopril 06/27/2010 hyperkalemia Sulfa Antibiotics 2020 Sulfamethoxazole 10/19/2006 Tingling, itch, s.o.b. documented as of this encounter (statuses as of 09/26/2023) Medications Medication Sig Dispensed Refills Start Date [...] 08/24/2022 Active Vitamin D (Ergocalciferol) 1.25 MG (81710 UT) Oral Capsule (Drisdol)Indications :Vitamin D deficiency [...] 1 Tablet before bedtime. 0 Active Nystatin 977838 UNIT/GM External Powder (Nystop) Apply topically to [...] as of this encounter (statuses as of 09/26/2023) Active Problems Problem Noted Date Diagnosed Date [...] dysfunction 07/26/2017 Coronary artery disease invo lving [place] coronary artery without angina pectoris 07/26/2017 Osteoarthritis of left knee 06/07/2016 Hypertension 04/12/2016 Exudative macular degeneration 11/09/2015 Obesity, Class I, BMI 30.0-34.9 (see actual BMI) 07/03/2013 Overview: bmi= 31.86 07/03/13 Osteoporosis 02/19/2013 Stenosis of carotid artery 07/26/2012 Dyslipidemia 09/01/2009 Overview: Per Lipid Taxonomy. Vitamin D deficiency 11/21/2008 Unilateral inguinal hernia 05/30/2007 Gastroesophageal reflux disease 07/02/2001 documented as of this encounter (statuses as of 09/26/2023) Resolved Problems Problem Noted Date Diagnosed Date [...] as of this encounter (statuses as of 09/26/2023) Immunizations Name Administration Dates Next Due COVID-19 mRNA, LNP-s, No Pre serve, 2-Dose Series (BackupAgent) 08/24/2021,11/26/2020,11/05/2020 Covid-19, Mrna, Lnp-s, Pf, B ivalent, [...] encounter Miscellaneous Notes * Telephone Encounter - Elizabeth Becerra [facility] - 09/26/2023 10:24 AM EST Refused Prescriptions: Disp Refills FLUoxetine HCl 10 MG Oral Capsule (PROzac) 90 Cap*1 Sig: TAKE 1 CAPSULE BY MOUTH EVERY MORNINGRefused By: ELIZABETH BECERRA for Refusal: Too soon Vitamin D (Ergocalciferol) 1.25 MG (60463 *12 Cap*3 Sig: TAKE 1 CAPSULE BY MOUTH ONE TIME PER WEEKRefused By: ELIZABETH BECERRA for Refusal: Too soon documented in this encounter Plan of Treatment Upcoming Encounters Date Type Department Care Team (Late st Contact Info) Description 10/01/2023 10:30 AM EST Office Visit Ophthalmology, [facility] [address] [address] Isaiah Valle, DO [address] [place] [address] 10/17/2023 9:30 AM EST Office Visit Cardiology, [facility] [address] [facility] [place] [address] Kiah Jenkins CRNP [address] [place] [address] 01/22/2024 8:40 AM EDT Office Visit [facility] [address] [place] [phone] Klaus Douglas MD [address] [place], [place] [phone] Scheduled Procedures Name Priority Associated Diagnoses Date/Ti me ESOPHAGOGASTRODUODENOSCOPY ( EGD), FLEXIBLE, TRANSORAL, DIAGNOSTIC Recall Esophageal dysphagia Health Maintenance Due Date Last Done Comments Alpha-1 Antitrypsin 1954 Zoster Vaccines (2 of 2) 07/25/2013 05/30/2013, 05/18 COVID-19 Vaccine ( season) 2023 09/28/2022, 08/24/2021, 11/26/2020, Additional history exists Depression Screening 09/20/2023 09/20/2022 Albumin/Creatinine Ratio 07/23/2024 07/23/2023, 12/2021 CKD PHOS USE SMARTSET 87721 07/23/202402/2023, 07/21/2022, 05/03/2021, Additional history exists CKD HGB USE SMARTSET 94581 08/14/202408/14, 07/23/2023, 07/21/2022, Additional history exists O2 [...] as of this encounter Visit Diagnoses Diagnosis Vitamin D deficiency Unspecified vitamin D deficiency documented in this encounter Advance Directives Latest [...] and were consensually agreed upon. Care Teams Overcoiler Relationship Specialty Start Date End Date Klaus Douglas MD [address] [place] [address] PCP - General 07/02/01 documented as of this encounter
--- OUTSIDE RECORDS SUMMARY | 2023-10-28 13:45 | External Medical Summary ---
Author Name Unknown Address Unknown Organization K01:[facility] [place] [address] [place] [address] Laboratory Report Ordering Provider Test Date Status TINY EMMANUEL 10/15/2023 12:11:09 Final Observation Date Value Abnormality Reference (Units ) Status Lipase 10/15/2023 12:11:09 7 Below low normal 13- 60 (U/L) Final Performing Location [facility] - [address] [place] [address]
--- OUTSIDE RECORDS SUMMARY | 2023-10-28 13:45 | External Medical Summary | Summary of Care ---
Author Name Unknown Organization [facility] Address [address] [place] [address] Phone [phone] Care Team Providers Care Supervisor Lead Refinery Name Role Phone Klaus Douglas MD Primary Care Provider +1- [phone] Reason for Visit * Reason Comments Outpatient Testing Encounter Details Date Type Department Care Team (Late st Contact Info) Description 10/15/2023 12:10 PM EST Laboratory Laboratory, [place] [address] [place] [address] [facility] [address] [place] [address] Abdominal pain, epigastric; Loss of weight Allergies Active Allergy Reactions Criticality Noted Date Comments Atenolol 06/15/1999 stomach pain Lisinopril 06/27/2010 hyperkalemia Sulfa Antibiotics 2020 Sulfamethoxazole 10/19/2006 Tingling, itch, s.o.b. documented as of this encounter (statuses as of 10/15/2023) Medications Medication Sig Dispensed Refills Start Date [...] 08/24/2022 Active Vitamin D (Ergocalciferol) 1.25 MG (74903 UT) Oral Capsule (Drisdol)Indications :Vitamin D deficiency TAKE 1 CAPSULE BY MOUTH ONE TIME PER WEEK 12 Capsule 3 10/24/2022 Active Furosemide 20 MG Oral Tablet (Lasix) TAKE BY MOUTH 1 TABLET ONCE A DAY ON SUNDAY, SUNDAY, AND SUNDAY ONLY . 15 Tablet 1 03/19/2023 Active Additional Information Patient not taking.Reported on 10/15/2023 Metoprolol Succinate ER 25 MG Oral Tablet [...] 1 Tablet before bedtime. 0 Active Nystatin 018571 UNIT/GM External Powder (Nystop) Apply topically to [...] for Sleep. 30 Tablet 1 10/15/2023 Active Hospital, Clinic, or Other Facility Administered [...] as of this encounter (statuses as of 10/15/2023) Active Problems Problem Noted Date Diagnosed Date [...] dysfunction 07/26/2017 Coronary artery disease invo lving [place] coronary artery without angina pectoris 07/26/2017 Osteoarthritis of left knee 06/07/2016 Hypertension 04/12/2016 Exudative macular degeneration 11/09/2015 Obesity, Class I, BMI 30.0-34.9 (see actual BMI) 07/03/2013 Overview: bmi= 31.86 07/03/13 Osteoporosis 02/19/2013 Stenosis of carotid artery 07/26/2012 Dyslipidemia 09/01/2009 Overview: Per Lipid Taxonomy. Vitamin D deficiency 11/21/2008 Unilateral inguinal hernia 05/30/2007 Gastroesophageal reflux disease 07/02/2001 documented as of this encounter (statuses as of 10/15/2023) Resolved Problems Problem Noted Date Diagnosed Date [...] as of this encounter (statuses as of 10/15/2023) Immunizations Name Administration Dates Next Due COVID-19 [...] 10/17/2023 9:30 AM EST Office Visit Cardiology, [facility] [address] [facility] [place] [place] [address] Kiah Jenkins CRNP [address] [place] [address] 12/10/2023 10:15 AM EDT Office Visit Ophthalmology, [facility] [address] [place] [address] Isaiah Valle DO [address] [place] [address] 01/22/2024 8:40 AM EDT Office Visit [facility] [address] [place] [phone] Klaus Douglas MD [address] [place] [address] Pending Results Name Type Priority Associated Diagnoses Date /Time COMPREHENSIVE METABOLIC PANEL Lab Routine Abdominal pain, epigastric 10/15/2023 12:11 PM EST TSH WITH FREE T4 IF INDICATED Lab Routine Loss of weight 10/15/2023 12:11 PM EST CBC Lab Routine Abdominal pain, epigastric Loss of weight 10/15/2023 12:11 PM EST LIPASE Lab Routine Abdominal pain, epigastric 10/15/2023 12:11 PM EST Scheduled Procedures Name Priority Associated Diagnoses Date/Ti me ESOPHAGOGASTRODUODENOSCOPY ( EGD), FLEXIBLE, TRANSORAL, DIAGNOSTIC Recall Esophageal dysphagia Health Maintenance Due Date Last Done Comments Alpha-1 Antitrypsin 1954 Zoster Vaccines (2 of 2) 07/25/2013 05/30/2013, 05/18 COVID-19 Vaccine ( season) 2023 09/28/2022, 08/24/2021, 11/26/2020, Additional history exists Depression Screening 09/20/2023 09/20/2022 Albumin/Creatinine Ratio 07/23/2024 07/23/2023, 12/2021 CKD PHOS USE SMARTSET 52579 07/23/202402/2023, 07/21/2022, 05/03/2021, Additional history exists CKD HGB USE SMARTSET 11556 08/14/202408/14, 07/23/2023, 07/21/2022, Additional history exists O2 [...] as of this encounter Visit Diagnoses Diagnosis Abdominal pain, epigastric Loss of weight documented in this encounter Advance Directives Latest [...] and were consensually agreed upon. Care Teams Supervisor Lead Refinery Relationship Specialty Start Date End Date [place], Klaus R, MD [address] [facility] [place] [phone] PCP - General 07/02/01 documented as of this encounter
--- NOTE | 2023-10-28 14:20 | Emergency Department Note ---
Impression & Plan AMS (altered mental status), Hypoxia, Frequent falls, COPD (chronic obstructive pulmonary disease), Pneumonia, Anemia, Hypokalemia ED Provider Note ED Provider Note NAME: IRENA EUGENE AGE:88 SEX: Female : 1935 ARRIVES VIA: EMS INFORMANT: Patient ED PROVIDER(s): Marcelina Smith DO CHIEF COMPLAINT: Falls, altered mental status HPI: This is an 88-year-old female presents emergency department after a fall this morning in which became concerned and called 911. Patient states she has been falling recently because she is tripping over her oxygen tubing. She states since a recent admission for pneumonia she was discharged home on 3 L of oxygen via nasal cannula to wear all the time. She states she has had recent falls over the last few days because of the tubing. She states she does not have a very good appetite and thinks she is likely dehydrated additionally. She denies hitting her head or losing consciousness. She denies any neck or back pain. She states she has some mild pain in her left shoulder which she believes could be from a fall, as well as pain in her left knee. She denies any change in urine or stools. Denies any change in her cough. She states she does not feel short of breath and feels she is doing well at home with her inhalers and home oxygen. While going over recent events with patient in the room, she started to giggle and say "I see the bunnies on the ceiling". PAST MEDICAL HISTORY:See Below PAST SURGICAL HISTORY:See Below FAMILY HISTORY:See Below SOCIAL HISTORY:See Below HOME MEDICATIONS:See Below ALLERGIES:See Below VITALS:See Below PHYSICAL EXAMINATION: GENERAL: alert, well appearing, well nourished, no distress, non-toxic HEAD: nc/at, no evidence of facial trauma, no jarvis signs, no raccoon eyes EYE EXAM: normal conjunctiva, PERRL and EOM's grossly intact OROPHARYNX: no exudate, no erythema, lips, buccal mucosa, and tongue normal and mucous membranes are dry NECK: supple, no nuchal rigidity, no adenopathy, non-tender LUNGS: Decreased bilaterally to auscultation. Normal chest wall mechanics, no w/r/r HEART: no murmurs, S1 normal and S2 normal ABDOMEN: abdomen soft, non-tender, normo-active bowel sounds, no masses, no rebound or guarding. PELVIS: Stable to compression, nontender with palpation BACK: Back is symmetrical on inspection and there is no deformity, no midline tenderness, no CVA tenderness. SKIN: no rashes, petechiae, orbruising UPPER EXTREMITIES: upper extremities are grossly normal. FROM, nml pulses b/l. Contusion noted at left elbow, no joint effusion, nontender with palpation LOWER EXTREMITIES: No pitting edema. FROM, nml pulses b/l. Contusion and mild edema noted at left knee, no bony tenderness with palpation, no evidence of deformity, compartments soft NEURO EXAM: Normal sensorium, cranial nerves II-XII grossly intact, normal speech, no facial droop,nogross weakness of arms, no gross weakness of legs. Gross sensation intact. Vital Signs: reviewed and remarkable Differential Diagnosis: ICH, CVA, electrode abnormality, dehydration, metabolic encephalopathy, hypercapnia, hypoxia, UTI, CHI, concussion, as well as others were considered MEDICAL DECISION MAKING: This is an 88-year-old female presents emergency department after family was concerned for recurrent fall and altered mental status. She was afebrile vital signs stable. It was noted during my initial evaluation and exam the patient was hallucinating noting "bunnies on the ceiling". Patient denies shortness of breath though she was noted to be more hypoxic on her usual 3 L via nasal cannula down to 86%. She was titrated up to 6 L via nasal cannula in order to improve her sats into the low 90s. Patient does have a history of COPD as well as prior pneumonia. Labs drawn and sent, IV established, EKG and chest x- ray/pelvic x-ray performed bedside interpreted by me and patient monitored on telemetry. She was sent for CT/CTA to evaluate for other causes of her altered mental status. No evidence of acute traumatic injury on imaging, no evidence of acute CVA or ICH. Patient noted while in the angio neck to also have pneumonia and increased pleural effusions compared to prior. Case discussed with hospitalist team for additional evaluation and management due to concern for evolving infection and worsening effusion that would likely explain the hypoxia and possible metabolic encephalopathy. Patient started on IV antibiotics for coverage of pneumonia, nasal swab sent additionally as a precaution. Urine collected and negative for infection. ABG was also performed did not show hypercapnia although patient's pH at 7.4 and I suspect this is likely chronic given her significant COPD history. Consultation(s): 1710: DIscussed with Ronnie Beavers hospitalist team, for additional evaluation and mgmt. ER Treatment Provided: See below Diagnostics Interpreted By Me: -ECG: NSR at 71, nml axis, left bundle branch block, nonspecific ST/T wave -Cardiac Monitoring: An order was placed for continuous cardiac monitoring. The monitor shows a rate of 70 with normal sinus rhythm. -Laboratory studies: As stated above and show below. -Imaging studies: X-ray Chest: A single view study of the chest was reviewed and was negative for cardiomegaly, focal infiltrate, or wide mediastinum. Appearance of bilateral pleural effusions and mild bilateral pulmonary edema. Similar to prior. Triage Nursing Note Reviewed Prior/Outside Records Reviewed -prior discharge summary reviewed Past Med/Surg History Medical History Febrile illness MISAEL (acute kidney injury) Fall Pneumonia Vertebral artery stenosis 75% stenosis of left vertebral artery per 05/30/2019 neck CTA Traumatic subarachnoid hemorrhage hx - 02/2021? Vertigo Coronary artery disease "diffuse minor CAD by cardiac catheterization 01/27/2019" per [facility] cardio note 06/29/2021 Hip dislocation, left currently in a brace Transient ischemic attack (TIA) possible per cardio note, 02/26/2021-negative CT and MRI imaging-on ASA per cardio with Plavix d/c due to subdural hematoma that subsequently resolved (cleared by neurosurgery [facility]) Macular degeneration Dyspnea Multiple pulmonary nodules determined by computed tomography of lung no further imaging needed given stability from 2019 per [facility] note 07/08/2021 Left bundle branch block chronic per [facility] cardio note-noted post TAVR 05/27/2019 per [facility] cardio note HTN (hypertension) controlled, stable per pt Dyslipidemia CKD (chronic kidney disease), stage III Osteoporosis COPD (chronic obstructive pulmonary disease) follows with [facility] pulm, on Trelegy Carotid stenosis 50-69% TONNY 03/12/2019 duplex per [facility] cardio GERD (gastroesophageal reflux disease) controlled, stable per pt Surgical History History of colonoscopy S/P revision of total hip left hip History of cardiac catheterization 05/15/2019 TAVR. 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 Bearden at [facility], 02/26/2021-normal gradient S/P tonsillectomy and adenoidectomy History of cataract surgery RT/LEFT H/O hernia repair RT INGUINAL HERNIA History of hysterectomy Family History Other No family history of adverse response to anesthesia Stroke Social History Smoking Status: Former smoker Second Hand Exposure: Yes (son smokes); Do You Dip or Chew Tobacco: No; Hx Alcohol Use: No Hx Substance Use: No Preferred Language: Guatemalan Communication Ability: Effective Facility Security Officer Required: No Beliefs That Will Affect Care: None marital status: Current Living Situation: Spouse Feels Safe at Home: Yes Assistive Devices: Brace/Splint/Immobilizer, Cane, Glasses and Walker Allergies Allergies Allergy/AdvReac Type Severity Reaction Status Date / Time Sulfa (Sulfonamide Allergy Severe SHORT OF Verified 08/28/23 23:49 Antibiotics) BREATH, ITCHING PER [facility] atenolol AdvReac Intermediate STOMACH Verified 08/28/23 23:49 PAIN PER [facility] lisinopril AdvReac Intermediate HYPERKALEMIA Verified 08/28/23 23:49 PER [facility] Home Meds Home Medications Medication Instructions Recorded Confirmed meclizine 25 mg chewable tablet 25 mg PO TID PRN Dizziness 12/31/18 10/28/23 vit C 250 mg-vit E 90 mg-zinc 40 1 tab PO AMHS 05/29/19 10/28/23 mg-copper 1 [id number] capsule (PreserVision AREDS-2) ondansetron 4 mg disintegrating 4 - 8 mg PO Q8H PRN Nausea 05/16/20 10/28/23 tablet aspirin 81 mg tablet,delayed 81 mg PO QAM 10/29/21 10/28/23 release ergocalciferol (vitamin D2) 1,250 50,000 unit PO WK 10/29/21 10/28/23 mcg (50,000 unit) capsule hydrocodone 5 mg-acetaminophen 325 1 tab PO Q8 PRN Pain 10/29/21 10/28/23 mg tablet zolpidem 5 mg tablet (Ambien) 5 mg PO HS PRN Sleep 10/29/21 10/28/23 fluoxetine 10 mg tablet 10 mg PO QAM 09/27/22 10/28/23 furosemide 20 mg tablet 20 mg PO 3XWK 09/27/22 10/28/23 acetaminophen 325 mg tablet 975 mg PO Q8H 08/28/23 10/28/23 (Tylenol) amoxicillin 500 mg capsule 2,000 mg PO DIRECTED PRN 1 HR 08/28/23 10/28/23 PRIOR TO DENTAL PROCEDURES guaifenesin 600 mg tablet, 600 mg PO AMHS 08/28/23 10/28/23 extended release 12 hr (Mucinex) ipratropium 20 mcg-albuterol 100 1 puff inhalation QID PRN 08/28/23 10/28/23 mcg/actuation mist for inhalation NEEDED PER [facility] albuterol sulfate 90 mcg/actuation 2 inh inhalation Q6H PRN shortness 08/29/23 10/28/23 aerosol inhaler (Ventolin HFA) of breath or wheezing amiodarone 200 mg tablet 200 mg PO QAM 08/29/23 10/28/23 amlodipine 5 mg tablet 5 mg PO QAM 10/28/23 10/28/23 apixaban 5 mg tablet (Eliquis) 5 mg PO AMHS 10/28/23 10/28/23 metoprolol succinate 25 mg 12.5 mg PO AMHS 10/28/23 10/28/23 tablet,extended release 24 hr mirtazapine 15 mg tablet 15 mg PO HS 10/28/23 10/28/23 omeprazole 20 mg capsule,delayed 20 mg PO AMHS 10/28/23 10/28/23 release pantoprazole 20 mg tablet,delayed 20 mg PO AMPM 10/28/23 10/28/23 release Previous Rx's Medication Instructions Recorded fluticasone fur. 100 mcg-umeclid 1 inh inhalation QAM #60 ea 01/26/23 62.5 mcg-vilant 25 mcg inhalat.powder (Trelegy Ellipta) atorvastatin 10 mg tablet 10 mg PO HS #30 tabs 08/12/23 Oxygen Home #1 ea 09/24/23 Results & Data (ED) Vital Signs Vital Signs - 24 hr 10/28/23 14:01 10/28/23 14:01 10/28/23 14:03 Temperature 36.5 C Temperature Source Temporal Artery Scan Pulse Rate 97 H 69 Pulse Rate from SpO2 Sensor 73 Respiratory Rate 22 20 Respiratory Effort / Characteristics Non-Labored Spontaneous Respiratory Depth Normal Blood Pressure 148/80 H 148/80 H Blood Pressure Mean 108 102 Pulse Oximetry 87 L 97 Oxygen Delivery Method Nasal Cannula Nasal Cannula Oxygen Flow Rate 4 4 Sepsis Recent Fever Within 48 Hours No Sepsis New/Unexplained Change in Mental Status No Sepsis Action Taken by Nursing No Action Required Oxygen Flow Rate - Titration Pulse Oximetry Post Tiitration 10/28/23 14:21 10/28/23 14:30 10/28/23 15:00 Temperature Temperature Source Pulse Rate 72 68 Pulse Rate from SpO2 Sensor Respiratory Rate 22 21 Respiratory Effort / Characteristics Respiratory Depth Blood Pressure Blood Pressure Mean Pulse Oximetry 87 L Oxygen Delivery Method Nasal Cannula Nasal Cannula Nasal Cannula Oxygen Flow Rate 3 4 Sepsis Recent Fever Within 48 Hours Sepsis New/Unexplained Change in Mental Status Sepsis Action Taken by Nursing Oxygen Flow Rate - Titration 4 Pulse Oximetry Post Tiitration 90 10/28/23 15:30 10/28/23 16:08 10/28/23 16:08 Temperature Temperature Source Pulse Rate 69 77 Pulse Rate from SpO2 Sensor 72 Respiratory Rate 19 23 Respiratory Effort / Characteristics Respiratory Depth Blood Pressure 162/73 H Blood Pressure Mean 119 Pulse Oximetry 88 L Oxygen Delivery Method Nasal Cannula Oxygen Flow Rate 4 Sepsis Recent Fever Within 48 Hours Sepsis New/Unexplained Change in Mental Status Sepsis Action Taken by Nursing Oxygen Flow Rate - Titration Pulse Oximetry Post Tiitration 10/28/23 16:30 10/28/23 16:30 10/28/23 17:00 Temperature Temperature Source Pulse Rate 72 75 Pulse Rate from SpO2 Sensor 72 Respiratory Rate 22 21 Respiratory Effort / Characteristics Respiratory Depth Blood Pressure 167/73 H Blood Pressure Mean 123 Pulse Oximetry 100 Oxygen Delivery Method Nasal Cannula Oxygen Flow Rate 4 Sepsis Recent Fever Within 48 Hours Sepsis New/Unexplained Change in Mental Status Sepsis Action Taken by Nursing Oxygen Flow Rate - Titration Pulse Oximetry Post Tiitration 10/28/23 17:00 Temperature Temperature Source Pulse Rate Pulse Rate from SpO2 Sensor Respiratory Rate Respiratory Effort / Characteristics Respiratory Depth Blood Pressure 170/55 H Blood Pressure Mean 103 Pulse Oximetry Oxygen Delivery Method Oxygen Flow Rate Sepsis Recent Fever Within 48 Hours Sepsis New/Unexplained Change in Mental Status Sepsis Action Taken by Nursing Oxygen Flow Rate - Titration Pulse Oximetry Post Tiitration Laboratory Data 10/28/23 14:40 10/28/23 14:40 Lab Results 10/28/23 10/28/23 10/28/23 Range/Units 14:40 14:50 16:40 WBC 8.24 (4.8-10.8) K/ul RBC 2.95 L (4.20-5.40) M/uL Hgb 8.8 L (12.0-16.0) g/dl Hct 30.4 L (37.0-47.0) % MCV 103.1 H (80.0-100.0) fL MCH 29.8 (25.0-34.0) pg MCHC 28.9 L (32.0-36.0) g/dL RDW Std Deviation 55.8 H (36.4-46.3) fL RDW Coeff of [place]son 14.7 H (11.5-14.5) % Plt Count 262 (130-400) K/uL MPV 10.7 (9.4-12.4) fL Neutrophils % (Manual) 93 % Lymphocytes % (Manual) 3 % Monocytes % (Manual) 1 % Eosinophils % (Manual) 1 % Basophils % (Manual) 1 % Blast Cells % (Manual) 1 % Neutrophils # (Manual) 7.66 H (1.40-6.50) K/uL Total Absolute Neuts 7.66 H (1.4-6.5) K/uL Lymphocytes # (Manual) 0.25 L (1.2-3.4) K/uL Total Abs Lymphocytes 0.25 L (1.2-3.4) K/uL Monocytes # (Manual) 0.08 L (0.11-0.59) K/uL Eosinophils # (Manual) 0.08 (0-0.50) K/uL Basophils # (Manual) 0.08 (0-0.2) K/uL Blast Cells # (Man) 0.08 H (0-0) K/uL RBC Morphology Unremarkable ABG pH 7.43 (7.35-7.45) ABG pCO2 65 H (35-46) mmHg ABG pO2 65 L (80-95) mmHg ABG HCO3 43 H (19-24) mmol/L ABG O2 Saturation 95.7 H (90-95) % ABG Base Excess 15.5 H (-9-1.8) mEq/L Ryan Test Pos (Pos) Oxygen Given 4 L Sodium 143 (136-145) mmol/L Potassium 3.4 L (3.5-5.1) mmol/L Chloride 102 (98-107) mmol/L Carbon Dioxide 38 H (21-32) mmol/L Anion Gap 3 (3-11) BUN 17 (6-23) mg/dl Creatinine 1.19 (0.6-1.2) mg/dl Est Cr Clr Drug Dosing 31.1 ml/min Est GFR ( Amer) 47.5 ml/min Est GFR (Non-Af Amer) 41.0 ml/min BUN/Creatinine Ratio 14.3 (10-20) Glucose 131 H (70-99(Fasting)) mg/dl Calcium 8.2 L (8.6-10.3) mg/dl Magnesium 2.1 (1.7-2.4) mg/dl Total Bilirubin 0.4 (0.2-1.0) mg/dl AST 9 L (13-39) U/L ALT 7 (7-52) U/L Alkaline Phosphatase 73 (34-104) U/L Troponin I High Sens 9.2 (0-14) pg/ml Total Protein 5.5 L (6.0-8.3) gm/dl Albumin 2.7 L (3.4-5.0) gm/dl Globulin 2.8 (2.5-4.0) gm/dl Albumin/Globulin Ratio 1.0 (0.9-2) Lipase 4 L (11-82) U/L TSH 1.984 (0.300-4.500) uIu/ml Adenovirus (PCR) Not Detected (NotDetected) B. pertussis DNA (PCR) Not Detected (NotDetected) B.parapertussis DNA PCR Not Detected (NotDetected) C. pneumoniae DNA (PCR) Not Detected (NotDetected) Coronavirus OC43 (PCR) Not Detected (NotDetected) Coronavirus HKU1 (PCR) Not Detected (NotDetected) Coronavirus 229E (PCR) Not Detected (NotDetected) SARS-CoV-2 (PCR) Not Detected (NotDetected) Coronavirus NL63 (PCR) Not Detected (NotDetected) Human Metapneumovir PCR Not Detected (NotDetected) Influenza Type A (PCR) Not Detected (NotDetected) Influenza Type B (PCR) Not Detected (NotDetected) M. pneumoniae (PCR) Not Detected (NotDetected) Parainfluenza 1 (PCR) Not Detected (NotDetected) Parainfluenza 2 (PCR) Not Detected (NotDetected) Parainfluenza 3 (PCR) Not Detected (NotDetected) Parainfluenza 4 (PCR) Not Detected (NotDetected) RSV (PCR) Not Detected (NotDetected) Entero/Rhino (PCR) Not Detected (NotDetected) Administered Medications Acetaminophen (Acetaminophen 325 Mg Tab) 975 mg PO Q8H [facility] Stop: 11/27/23 19:12 Last Admin: 10/28/23 21:59 Dose: 975 mg Documented By: ESTUARDO Albuterol (Albut/Ipratrop 3mg/0.5mg Neb 3 Ml Vial) 3 ml NEB Q4R [facility]; Protocol Stop: 11/27/23 19:12 Last Admin: 10/28/23 20:01 Dose: 3 ml Documented By: TERI Apixaban (Apixaban 5 Mg Tablet) 5 mg PO [facility] Stop: 11/27/23 20:59 Last Admin: 10/28/23 22:00 Dose: 5 mg Documented By: ESTUARDO Atorvastatin Calcium (Atorvastatin 10 Mg Tab) 10 mg PO [facility] Stop: 11/27/23 20:59 Last Admin: 10/28/23 22:01 Dose: 10 mg Documented By: ESTUARDO Guaifenesin (Guaifenesin 600 Mg Tabcr) 1,200 mg PO Q12 [facility] Stop: 11/27/23 20:59 Last Admin: 10/28/23 22:01 Dose: 1,200 mg Documented By: ESTUARDO Metoprolol Succinate (Metoprolol Succ 25mg Ext Rel Tab) 12.5 mg PO [facility] Stop: 11/27/23 20:59 Last Admin: 10/28/23 22:02 Dose: 12.5 mg Documented By: ESTUARDO Mirtazapine (Mirtazapine Tab 15 Mg Tab) 15 mg PO [facility] Stop: 11/27/23 20:59 Last Admin: 10/28/23 22:07 Dose: 15 mg Documented By: ESTUARDO Multivitamins/Minerals (Cerovite Adv Formula Tab) 1 tab PO [facility] Stop: 11/27/23 20:59 Last Admin: 10/28/23 22:08 Dose: Not Given Documented By: ESTUARDO Pantoprazole Sodium (Pantoprazole 40 Mg Tab) 40 mg PO [facility] Stop: 11/27/23 20:59 Last Admin: 10/28/23 22:07 Dose: 40 mg Documented By: ESTUARDO Discontinued Medications Albuterol (Albut/Ipratrop 3mg/0.5mg Neb 3 Ml Vial) 3 ml NEB NOW STA; Protocol Stop: 10/28/23 16:30 Last Admin: 10/28/23 17:15 Dose: 3 ml Documented By: DOUG Furosemide (Furosemide Inj 20 Mg/2 Ml Vial) 20 mg IV ONE ONE Stop: 10/28/23 17:36 Last Admin: 10/28/23 18:15 Dose: 20 mg Documented By: DOUG Sodium Chloride (Nss) 1,000 mls @ 125 mls/hr IV .Q8H [facility] Stop: 11/27/23 14:14 Last Infusion: 10/28/23 17:54 Dose: Infused Documented By: Admin: 10/28/23 15:26 Dose: 125 mls/hr Documented By: BHARATH Ceftriaxone Sodium (Rocephin) 2,000 mg in 50 mls @ 100 mls/hr IV NOW STA Stop: 10/28/23 16:55 Last Infusion: 10/28/23 17:53 Dose: Infused Documented By: Admin: 10/28/23 17:23 Dose: 100 mls/hr Documented By: DOUG Doxycycline Hyclate 100 mg/ (Dextrose) 100 mls @ 50 mls/hr IV NOW STA Stop: 10/28/23 18:25 Last Infusion: 10/28/23 20:00 Dose: Infused Documented By: Admin: 10/28/23 17:51 Dose: 50 mls/hr Documented By: DOUG Ioversol (Optiray 320 125ml) 118 ml IV ONCE ONE Stop: 10/28/23 16:06 Last Admin: 10/28/23 16:06 Dose: 118 ml Documented By: WAYLON Methylprednisolone (Methylprednisolone 40 Mg/Ml Vial) 40 mg IV NOW STA Stop: 10/28/23 17:36 Last Admin: 10/28/23 18:13 Dose: 40 mg Documented By: DOUG Potassium Chloride (Potassium Chloride Crtab 20 Meq Tabcr) 40 meq PO NOW STA Stop: 10/28/23 18:09 Last Admin: 10/28/23 21:59 Dose: 40 meq Documented By: [facility] Imaging Data Radiologist's Impression: Head CT 10/28/23 14:07 CT OF THE HEAD WITHOUT CONTRAST CLINICAL HISTORY: Altered mental status. COMPARISON STUDY: Head CT June 22, 2021. MRI of the brain February 26, 2021. CT DOSE: 1002.27 mGy.cm TECHNIQUE: Helical axial images of the head were obtained without IV contrast. Automated exposure control was utilized for the study. A dose lowering technique was utilized adhering to the principles of ALARA. FINDINGS: No acute intracranial hemorrhage, midline shift or mass effect is present. The ventricular system is unremarkable. The basal cisterns are patent. No extra-axial collections are present. There are no findings to suggest acute dural sinus thrombosis or acute territorial infarct. No significant calvarial abnormalities are present. Bilateral mastoid air cells are partially opacified. This has increased since prior head CT. IMPRESSION: 1. No acute intracranial findings. 2. Partially opacified bilateral mastoid air cells. ACT 112: Negative or not required by law. Electronically signed by: Jamaal Phan M.D. 10/28/2023 4:10 PM Head CTA 10/28/23 14:07 CTA ANGIOGRAPHY OF THE HEAD CLINICAL HISTORY: Altered mental status. COMPARISON STUDY: CTA of the head November 27, 2018. TECHNIQUE: Helical axial images of the head were obtained following uneventful intravenous administration of 118 cc of Optiray. Sagittal and coronal reconstructions were viewed as well as maximal intensity projections on an independent 3-D workstation. Automated exposure control was utilized for the study. A dose lowering technique was utilized adhering to the principles of ALARA. FINDINGS: No acute intracranial hemorrhage, midline shift or mass effect is present. Bilateral mastoid air cells are partially opacified. Basal cisterns are patent. There are no extra-axial collections. Bilateral M1, M2, A1 and A2 segments are patent. Posterior circulation is intact. There is no large vessel occlusion. No intracranial aneurysm is present. Major dural sinuses are patent. IMPRESSION: No large vessel occlusion. No intracranial aneurysm. ACT 112: Negative or not required by law. Electronically signed by: Jamaal Phan M.D. 10/28/2023 4:24 PM Neck CTA 10/28/23 14:07 CT ANGIOGRAPHY OF THE NECK WITH CONTRAST CLINICAL HISTORY: Altered mental status. COMPARISON STUDY: Carotid ultrasound February 26, 2021. CTA of the neck May 30, 2019. Technique: CT angiography of the carotid and vertebral arteries was obtained using Optiray and 3D reconstruction on an independent workstation. NASCET criteria was utilized. Automated exposure control was utilized for the study. A dose lowering technique was utilized adhering to the principles of ALARA. Findings: Moderate to large bilateral pleural effusions are partially imaged. There is interlobular septal thickening within the lung apices. Multifocal airspace opacities within the lung apices are also noted, including a 2.9 cm left upper lobe opacity. There is no cervical lymphadenopathy. No cervical spine fractures are present. Bilateral common carotid and cervical internal carotid arteries are patent without significant stenosis. There is mild plaque within the carotid bifurcations extrinsic compression of the left vertebral artery at the C3-C4 level due to osteophytes is unchanged since prior CT. This results in 75% stenosis. IMPRESSION: 1. No stenosis within the bilateral common carotid or cervical internal carotid arteries. 2. No change in 75% extrinsic narrowing of the left vertebral artery since CTA of May 30, 2019. This is due to adjacent osteophytes. 3. Partially imaged moderate to large bilateral pleural effusions with interstitial pulmonary edema. Multifocal airspace opacities, including a 2.1 cm left upper lobe opacity favor superimposed pneumonia however alveolar pulmonary edema could appear similar. A follow-up chest CT in 2 months to ensure resolution is recommended. ACT 112: Negative or not required by law. Electronically signed by: Jamaal Phan M.D. 10/28/2023 4:18 PM Chest X-Ray 10/28/23 14:08 XR chest 1V portable CLINICAL HISTORY: Hypoxia. Fall. COMPARISON STUDY: Chest CT August 05, 2023. Chest radiograph August 28, 2023. FINDINGS: There is no pneumothorax. [id number] bilateral pleural effusions, right larger left, have increased in size. Interstitial thickening persists. Perihilar opacities are greater on the left. Cardiomegaly is again noted. 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 IMPRESSION: 1. No pneumothorax. Increase in size of [id number] bilateral pleural effusions. 2. Persistent pulmonary edema. Interval development of left perihilar opacities which favor alveolar pulmonary edema however superimposed pneumonia could appear similar. ACT 112: Negative or not required by law. Electronically signed by: Jamaal Phan M.D. 10/28/2023 3:29 PM Elbow X-Ray 10/28/23 14:20 XR elbow LT min 3V routine CLINICAL HISTORY: trauma COMPARISON: None FINDINGS: An IV within the left antecubital fossa is incidentally noted. Alignment of the left elbow is anatomic. There is no acute fracture. There is no evidence for left elbow joint effusion. IMPRESSION: No acute fracture. No evidence for a left elbow joint effusion. ACT 112: Negative or not required by law. Electronically signed by: Jamaal Phan M.D. 10/28/2023 3:31 PM Knee X-Ray 10/28/23 14:20 XR knee LT 3V CLINICAL HISTORY: trauma COMPARISON: Left femur radiographs October 20, 2016. FINDINGS: Alignment of the left knee is anatomic. There is no acute fracture. No significant joint effusion is present. 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 IMPRESSION: No fractures within the left knee. ACT 112: Negative or not required by law. Electronically signed by: Jamaal Phan M.D. 10/28/2023 3:30 PM Pelvis X-Ray 10/28/23 14:20 XR pelvis 1-2V routine CLINICAL HISTORY: trauma COMPARISON: Pelvis and right hip radiographs February 23, 2023. FINDINGS: Cholecystectomy clips, lumbar spine decompression and fusion and bilateral hip arthroplasties are incidentally noted. Sacroiliac joints and symphysis pubis are intact. No periprosthetic fractures are present. There are no acute fractures within the pelvis or hips. IMPRESSION: 1. No fractures within the pelvis or hips. 2. Intact total bilateral hip arthroplasties. No periprosthetic fracture or lucency. ACT 112: Negative or not required by law. Electronically signed by: Jamaal Phan M.D. 10/28/2023 3:32 PM Discharge Plan Visit Data Chief Complaint: Altered Mental Status ED Provider: Marcelina Smith Discharge Problem: AMS (altered mental status), Hypoxia, Frequent falls, COPD (chronic obstructive pulmonary disease), Pneumonia, Anemia, Hypokalemia Patient Disposition: Admitted As Inpatient Discharge Instructions Interventions: ED Discharge Assessment Last Done: 10/28/23 19:13
[2023-10-28 15:02] LABS: Allen Test Pos (Pos); Base Excess ABG 15.5 mEq/L (-9-1.8); HCO3 ABG 43 mmol/L (19-24); Oxygen Saturation ABG 95.7 % (90-95); PCO2 ABG 65 mmHg (35-46); PO2 ABG 65 mmHg (80-95); pH ABG 7.43 (7.35-7.45)
[2023-10-28 15:24] LABS: BUN Creatinine Ratio 14.3 (10-20); Calcium 8.2 mg/dl (8.6-10.3); Creatinine Clr Calc Pharmacy 31.1 ml/min; Est GFR (African American) 47.5 ml/min; Potassium 3.4 mmol/L (3.5-5.1)
[2023-10-28 15:25] LABS: Hematocrit (blood only) 30.4 % (37.0-47.0); Hemoglobin 8.8 g/dl (12.0-16.0); Mean Corpuscular Hemoglobin 29.8 pg (25.0-34.0); Mean Corpuscular Hgb Conc 28.9 g/dL (32.0-36.0); Mean Corpuscular Volume 103.1 fL (80.0-100.0); Mean Platelet Volume 10.7 fL (9.4-12.4); Platelet Count 262 K/uL (130-400); RDW Coefficient of Variation 14.7 % (11.5-14.5); RDW Standard Deviation 55.8 fL (36.4-46.3); Red Blood Count 2.95 M/uL (4.20-5.40); White Blood Count 8.24 K/ul (4.8-10.8)
[2023-10-28] MEDS: SODIUM CHLORIDE 0.9% 1,000 ML IV SCH (15:26)
[2023-10-28 15:29] LABS: Troponin I High Sensitivity 9.2 pg/ml (0-14)
--- NOTE | 2023-10-28 15:31 | XRay Report ---
XR chest 1V portable CLINICAL HISTORY: Hypoxia. Fall. COMPARISON STUDY: Chest CT August 05, 2023. Chest radiograph August 28, 2023. FINDINGS: There is no pneumothorax. Gcjyv-ym-[id number] bilateral pleural effusions, right larger left, have increased in size. Interstitial thickening persists. Perihilar opacities are greater on the lef t. Cardiomegaly is again noted. 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 IMPRESSION: 1. No pneumothorax. Increase in size of [id number]-gw-[id number] bilateral pleural effusions. 2. Persistent pulmonary edema. Interval development of left perihilar opacities which favor alveolar pulmonary edema however superimposed pneumonia could appear similar. ACT 112: Negative or not required by law. Electronically signed by: Jamaal Phan M.D. 10/28/2023 3:29 PM
--- NOTE | 2023-10-28 15:31 | XRay Report ---
XR knee LT 3V CLINICAL HISTORY: trauma COMPARISON: Left femur radiographs October 20, 2016. FINDINGS: Alignment of the left knee is anatomic. There is no acute fracture. No significant joint e ffusion is present. 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 IMPRESSION: No fractures within the left knee. ACT 112: Negative or not required by law. Electronically signed by: Jamaal Phan M.D. 10/28/2023 3:30 PM
--- NOTE | 2023-10-28 15:32 | XRay Report ---
XR elbow LT min 3V routine CLINICAL HISTORY: trauma COMPARISON: None FINDINGS: An IV within the left antecubital fossa is incidentally noted. Alignment of the left elbow is anatomic. There is no acute fracture. There is no evidence for left elbow joint effusion. IMPRESSION: No acute fracture. No evidence for a left elbow joint effusion. ACT 112: Negative or not required by law. Electronically signed by: Jamaal Phan M.D. 10/28/2023 3:31 PM
--- NOTE | 2023-10-28 15:33 | XRay Report ---
XR pelvis 1-2V routine CLINICAL HISTORY: trauma COMPARISON: Pelvis and right hip radiographs February 23, 2023. FINDINGS: Cholecystectomy clips, lumbar spine decompression and fusion and bilateral hip arthroplast ies are incidentally noted. Sacroiliac joints and symphysis pubis are intact. No periprosthetic fract ures are present. There are no acute fractures within the pelvis or hips. IMPRESSION: 1. No fractures within the pelvis or hips. 2. Intact total bilateral hip arthroplasties. No periprosthetic fracture or lucency. ACT 112: Negative or not required by law. Electronically signed by: Jamaal Phan M.D. 10/28/2023 3:32 PM
[2023-10-28 15:39] LABS: Thyroid Stimulating Hormone 1.984 uIu/ml (0.300-4.500)
[2023-10-28 15:45] LABS: Albumin Level 2.7 gm/dl (3.4-5.0); Bilirubin,Total 0.4 mg/dl (0.2-1.0); Globulin 2.8 gm/dl (2.5-4.0); Magnesium 2.1 mg/dl (1.7-2.4); Total Protein 5.5 gm/dl (6.0-8.3)
[2023-10-28 15:53] LABS: ALC (manual) 0.25 K/uL (1.2-3.4); ANC (manual) 7.66 K/uL (1.4-6.5); Basophils # (manual) 0.08 K/uL (0-0.2); Basophils % (manual) 1 %; Blast # (manual) 0.08 K/uL (0-0); Blast Cells % (manual) 1 %; Eosinophils # (manual) 0.08 K/uL (0-0.50); Eosinophils % (manual) 1 %; Lymphocytes # (manual) 0.25 K/uL (1.2-3.4); Lymphocytes % (manual) 3 %; Monocytes # (manual) 0.08 K/uL (0.11-0.59); Monocytes % (manual) 1 %; Neutrophils # (manual) 7.66 K/uL (1.40-6.50); Neutrophils % (manual) 93 %; RBC Morphology Unremarkable
[2023-10-28] MEDS: OPTIRAY 320 125ml IV ONE (16:06)
--- NOTE | 2023-10-28 16:12 | CT Scan Report ---
CT OF THE HEAD WITHOUT CONTRAST CLINICAL HISTORY: Altered mental status. COMPARISON STUDY: Head CT June 22, 2021. MRI of the brain February 26, 2021. CT DOSE: 1002.27 mGy.cm TECHNIQUE: Helical axial images of the head were obtained without IV contrast. Automated exposure con trol was utilized for the study. A dose lowering technique was utilized adhering to the principles o f ALARA. FINDINGS: No acute intracranial hemorrhage, midline shift or mass effect is present. The ventricular system is unremarkable. The basal cisterns are patent. No extra-axial collections are present. There are no findings to suggest acute dural sinus thrombosis or acute territorial infarct. No significant calvarial abnormalities are present. Bilateral mastoid air cells are partially opacified. This has in creased since prior head CT. IMPRESSION: 1. No acute intracranial findings. 2. Partially opacified bilateral mastoid air cells. ACT 112: Negative or not required by law. Electronically signed by: Jamaal Phan M.D. 10/28/2023 4:10 PM
--- NOTE | 2023-10-28 16:20 | CT Scan Report ---
CT ANGIOGRAPHY OF THE NECK WITH CONTRAST CLINICAL HISTORY: Altered mental status. COMPARISON STUDY: Carotid ultrasound February 26, 2021. CTA of the neck May 30, 2019. Technique: CT angiography of the carotid and vertebral arteries was obtained using Optiray and 3D rec onstruction on an independent workstation. NASCET criteria was utilized. Automated exposure control was utilized for the study. A dose lowering technique was utilized adhering to the principles of ALA RA. Findings: Moderate to large bilateral pleural effusions are partially imaged. There is interlobular s eptal thickening within the lung apices. Multifocal airspace opacities within the lung apices are als o noted, including a 2.9 cm left upper lobe opacity. There is no cervical lymphadenopathy. No cervica l spine fractures are present. Bilateral common carotid and cervical internal carotid arteries are pa tent without significant stenosis. There is mild plaque within the carotid bifurcations extrinsic com pression of the left vertebral artery at the C3-C4 level due to osteophytes is unchanged since prior CT. This results in 75% stenosis. IMPRESSION: 1. No stenosis within the bilateral common carotid or cervical internal carotid arteries. 2. No change in 75% extrinsic narrowing of the left vertebral artery since CTA of May 30, 2019. This is due to adjacent osteophytes. 3. Partially imaged moderate to large bilateral pleural effusions with interstitial pulmonary edema. Multifocal airspace opacities, including a 2.1 cm left upper lobe opacity favor superimposed pneumoni a however alveolar pulmonary edema could appear similar. A follow-up chest CT in 2 months to ensure r esolution is recommended. ACT 112: Negative or not required by law. Electronically signed by: Jamaal Phan M.D. 10/28/2023 4:18 PM
--- NOTE | 2023-10-28 16:26 | CT Scan Report ---
CTA ANGIOGRAPHY OF THE HEAD CLINICAL HISTORY: Altered mental status. COMPARISON STUDY: CTA of the head November 27, 2018. TECHNIQUE: Helical axial images of the head were obtained following uneventful intravenous administr ation of 118 cc of Optiray. Sagittal and coronal reconstructions were viewed as well as maximal inten sity projections on an independent 3-D workstation. Automated exposure control was utilized for the study. A dose lowering technique was utilized adhering to the principles of ALARA. FINDINGS: No acute intracranial hemorrhage, midline shift or mass effect is present. Bilateral mastoi d air cells are partially opacified. Basal cisterns are patent. There are no extra-axial collections. Bilateral M1, M2, A1 and A2 segments are patent. Posterior circulation is intact. There is no large vessel occlusion. No intracranial aneurysm is present. Major dural sinuses are patent. IMPRESSION: No large vessel occlusion. No intracranial aneurysm. ACT 112: Negative or not required by law. Electronically signed by: Jamaal Phan M.D. 10/28/2023 4:24 PM
--- NOTE | 2023-10-28 16:57 | Electrocardiogram Report ---
Test Reason : Blood Pressure : / mmHG Vent. Rate : 071 BPM Atrial Rate : 071 BPM P-R Int : 192 ms QRS Dur : 138 ms QT Int : 450 ms P-R-T Axes : 068 -21 153 degrees QTc Int : 489 ms Normal sinus rhythm Left bundle branch block Abnormal ECG When compared with ECG of 28-AUG-2023 22:58, No significant change was found Confirmed by Isaiah Latham ([id number]) on 10/28/2023 4:56:43 PM Referred By: Confirmed By:Karel Latham
[2023-10-28] MEDS: ALBUT/IPRATROP 3MG/0.5MG NEB 3 ML VIAL NEB STA (17:15)
--- NOTE | 2023-10-28 17:17 | History & Physical Report ---
Date of Service October 28, 2023 Assessment & Plan (1) AMS (altered mental status): (2) Chronic hypoxic respiratory failure: (3) Acute respiratory failure with hypoxia and hypercapnia: (4) COPD (chronic obstructive pulmonary disease) with emphysema: (5) Chronic heart failure with preserved ejection fraction (HFpEF): (6) Coronary artery disease: (7) Paroxysmal atrial fibrillation: (8) S/P TAVR (transcatheter aortic valve replacement): (9) Left bundle branch block: (10) CKD (chronic kidney disease), stage III: (11) HTN (hypertension): (12) Dyslipidemia: Plan: Acute hypoxic respiratory failure, multifactorial COPD exacerbation Former Smoker Pleural Effusions and Pulmonary edema Left Lower Lobe Pneumonia -Admit to PCU -Today appears to have combination symptoms due to pneumonia and COPD, possibly touch of volume overload - Continue home inhalers, mucinex, incentive spirometry, flutter valve - O2 sats at 86% on admission --- at home 2L O2 at rest, 3L on exertion --- increased to 5-6 L in the ER - ABG reviewed: pH 7.43, pCO2 65, O2: 65, HCO3 43 -- possibly chronic? - CXR: Increase in size of [id number] bilateral pleural effusions. Persistent pulmonary edema. Interval development of left perihilar opacities which favor alveolar pulmonary edema however superimposed pneumonia could appear similar. - Give Lasix 20 mg IV now, insert Davis catheter, stop IV fluids (given 1 L in the ER) - IV Solu-Medrol 40 mg IV now, and continue - Biofire pending - Cont ceftriaxone and doxy IV Frequent Falls - Imaging reviewed, negative for any acute fracture -PT/OT consults - Allow pt home hydrocodone PO and she has been on around the clock tylenol as well, if had a fever this would have masked it Paroxysmal atrial fibrillation: Calcific aortic stenosis, status post TAVR - Hx of afib RVR issues with previous hospitalizations due to pneumonia -Continue metoprolol 12.5 mg QID, amiodarone 200 mg daily -Continue eliquis 5mg bid -At home take furosemide MWF, give Lasix as above -Replace electrolytes prn, potassium borderline 3.4 on admission, give 40 meq PO now with iv diuresis Mild nonobstructive CAD per cardiac catheterization 01/27/2019 Left bundle branch block noted post TAVR 05/27/2019 Chronic heart failure with preserved ejection fraction (HFpEF): -On Lasix 20 mg MWF at home -Continue home medications CKD III - Chronic, stable, slightly better than baseline currently with Cr of 1.19/BUN 17-likely secondary to trace volume overload, appears baseline Cr. is 1.2-1.4 DVT ppx: teds, scds FEN/GI: Heart healthy diet Lines: 2 PIV CODE: DNR/DNI Dispo: From home, likely to remain in the hospital x 1-2 days A total of 80 minutes were spent with greater than 50% of that time face to face with the patient, personally reviewing all current laboratories, imaging studies, past medication reconciliation, outpatient chart review, and discussion with specialists to collaborate care for the patient with attending. Please see attending documentation for corrections and/or additions. History of Present Illness Chief Complaint: Altered mental status Primary Care Provider: Klaus Douglas MD This is an 88-year-old female with PMHx of chronic hypoxic respiratory failure, chronic diastolic CHF, COPD, remote tobacco use smoking 2 packs/day x 60 years/quit 7 years ago, pulmonary nodules, pleural effusion, HTN, HLD, CAD, bilateral carotid artery stenosis, severe aortic stenosis, stenosis of left vertebral artery, status post TAVR, LBBB, macular degeneration of right eye, CKD stage III, GERD who presents to the hospital with new onset acute shortness of breath and cough for the past 2 days. Her noted to nursing staff that she also was seeing/hallucinating at home which is not unusual whenever she gets sick. He is not present during my examination to support the history. She states that she has had to increase her O2 from 4 L to 5 L at home due to worsening shortness of breath, has been using her albuterol inhaler very frequently, and is coughing up yellow/green sputum. She feels like she is tripping over her oxygen tank at home quite often but denies any recent falls, loss of consciousness or trauma to the head. 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 Patient denies having visual hallucinations or auditory hallucinations at this time but did ask the nurses in the room about the bunny rabbits on the ceiling in the hospital earlier today. She denies any other acute symptoms, no fevers, chills or sweats, no chest pain. She reports having chronic right-sided hip pain from previous fractures, walks with use of a walker at baseline. Allergies Allergy/AdvReac Type Severity Reaction Status Date / Time Sulfa (Sulfonamide Allergy Severe SHORT OF Verified 08/28/23 23:49 Antibiotics) BREATH, ITCHING PER [facility] atenolol AdvReac Intermediate STOMACH Verified 08/28/23 23:49 PAIN PER [facility] lisinopril AdvReac Intermediate HYPERKALEMIA Verified 08/28/23 23:49 PER [facility] Home Medications Medication Instructions Recorded Confirmed Type meclizine 25 mg chewable tablet 25 mg PO TID PRN Dizziness 12/31/18 10/28/23 History vit C 250 mg-vit E 90 mg-zinc 40 1 tab PO AMHS 05/29/19 10/28/23 History mg-copper 1 ju-[id number] capsule (PreserVision AREDS-2) ondansetron 4 mg disintegrating 4 - 8 mg PO Q8H PRN Nausea 05/16/20 10/28/23 History tablet aspirin 81 mg tablet,delayed 81 mg PO QAM 10/29/21 10/28/23 History release ergocalciferol (vitamin D2) 1,250 50,000 unit PO WK 10/29/21 10/28/23 History mcg (50,000 unit) capsule hydrocodone 5 mg-acetaminophen 325 1 tab PO Q8 PRN Pain 10/29/21 10/28/23 History mg tablet zolpidem 5 mg tablet (Ambien) 5 mg PO HS PRN Sleep 10/29/21 10/28/23 History fluoxetine 10 mg tablet 10 mg PO QAM 09/27/22 10/28/23 History furosemide 20 mg tablet 20 mg PO 3XWK 09/27/22 10/28/23 History fluticasone fur. 100 mcg-umeclid 1 inh inhalation QAM #60 ea 01/26/23 10/28/23 Rx 62.5 mcg-vilant 25 mcg inhalat.powder (Trelegy Ellipta) atorvastatin 10 mg tablet 10 mg PO HS #30 tabs 08/12/23 10/28/23 Rx acetaminophen 325 mg tablet 975 mg PO Q8H 08/28/23 10/28/23 History (Tylenol) amoxicillin 500 mg capsule 2,000 mg PO DIRECTED PRN 1 HR 08/28/23 10/28/23 History PRIOR TO DENTAL PROCEDURES guaifenesin 600 mg tablet, 600 mg PO AMHS 08/28/23 10/28/23 History extended release 12 hr (Mucinex) ipratropium 20 mcg-albuterol 100 1 puff inhalation QID PRN 08/28/23 10/28/23 History mcg/actuation mist for inhalation NEEDED PER [facility] albuterol sulfate 90 mcg/actuation 2 inh inhalation Q6H PRN shortness 08/29/23 10/28/23 History aerosol inhaler (Ventolin HFA) of breath or wheezing amiodarone 200 mg tablet 200 mg PO QAM 08/29/23 10/28/23 History Oxygen Home #1 ea 09/24/23 10/28/23 Rx amlodipine 5 mg tablet 5 mg PO QAM 10/28/23 10/28/23 History apixaban 5 mg tablet (Eliquis) 5 mg PO AMHS 10/28/23 10/28/23 History metoprolol succinate 25 mg 12.5 mg PO AMHS 10/28/23 10/28/23 History tablet,extended release 24 hr mirtazapine 15 mg tablet 15 mg PO HS 10/28/23 10/28/23 History omeprazole 20 mg capsule,delayed 20 mg PO AMHS 10/28/23 10/28/23 History release pantoprazole 20 mg tablet,delayed 20 mg PO AMPM 10/28/23 10/28/23 History release Past Med/Surg History Medical History Vertebral artery stenosis 75% stenosis of left vertebral artery per 05/30/2019 neck CTA Traumatic subarachnoid hemorrhage hx - 02/2021? Vertigo Coronary artery disease "diffuse minor CAD by cardiac catheterization 01/27/2019" per [facility] note 06/29/2021 Hip dislocation, left currently in a brace Transient ischemic attack (TIA) possible per cardio note, 02/26/2021-negative CT and MRI imaging-on ASA per cardio with Plavix d/c due to subdural hematoma that subsequently resolved (c leared by neurosurgery [facility]) Macular degeneration Dyspnea Multiple pulmonary nodules determined by computed tomography of lung no further imaging needed given stability from 2019 per [facility] note 06/18 Left bundle branch block chronic per [facility] cardio note-noted post TAVR 05/27/2019 per [facility] cardio note HTN (hypertension) controlled, stable per pt Dyslipidemia CKD (chronic kidney disease), stage III Osteoporosis COPD (chronic obstructive pulmonary disease) follows with [facility], on Trelegy Carotid stenosis 50-69% TONNY 03/12/2019 duplex per [facility] cardio GERD (gastroesophageal reflux disease) controlled, stable per pt Surgical History History of colonoscopy S/P revision of total hip left hip History of cardiac catheterization 05/15/2019 TAVR. 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 Bearden at [facility], 02/26/2021-normal gradient S/P tonsillectomy and adenoidectomy History of cataract surgery RT/LEFT H/O hernia repair RT INGUINAL HERNIA History of hysterectomy Family History Other No family history of adverse response to anesthesia Stroke Social History Smoking Status: Former smoker Second Hand Exposure: Yes (son smokes); Do You Dip or Chew Tobacco: No; Hx Alcohol Use: No Hx Substance Use: No Preferred Language: Maltese Communication Ability: Effective Electric Serviceman Required: No Beliefs That Will Affect Care: None marital status: Current Living Situation: Spouse Feels Safe at Home: Yes Assistive Devices: Brace/Splint/Immobilizer, Cane, Glasses and Walker Review of Systems Review of Systems: Constitutional: No fever, sweats or chills Eyes: No diplopia, no worsening or blurred vision ENT: normal hearing, no trouble swallowing Respiratory: +cough,+ sputum, +dyspnea on exertion Cardiovascular: No chest pain, tightness or palpitations Abdomen: No pain, nausea, vomiting, diarrhea or constipation Musculoskeletal: + chronic L hip pain, no other joint pain, calf pain, denies swelling Neurologic: No weakness, numbness/tingling, or balance problems, uses walker Psychiatric: No anxiety or depression Skin: No rash or itch Physical Exam Physical Exam: General: awake, alert, no apparent distress, chronically ill, white female, BMI 29 Head: Normocephalic, atraumatic ENT: PERRL, EOMI, no pharyngeal exudate, mucous membranes moist Chest: Coarse rales throughout, rhonchi and mid lung flores, diminished breath sounds at bases, on 4L via NC, just completed a nebulizer treatment at bedside, + cough Cardiac: Regular rate and rhythm, no murmur, no JVD, normal peripheral pulses, good capillary refill Abdominal: NABS x 4 quadrants, soft, nondistended, nontender to palpation, no rebound or guarding Extremities: 1+ pitting edema in bilateral lower extremities up to mid tibial region, no peripheral erythema, calfs nontender to palpation Psych: Normal mood and affect, denies auditory or visual hallucination Neuro: AAO x 3, strength intact bilaterally and rated 4/5, no motor deficits, speech is clear, no peripheral sensory deficits Results & Data Results & Data Vital Signs (Past 12 Hours) Vital Signs Temp Pulse Resp BP Pulse Ox O2 Del Method O2 Flow Rate 10/28/23 14:21 87 L Nasal Cannula 3 10/28/23 14:03 36.5 C 69 20 148/80 H 97 Nasal Cannula 4 Laboratory Results 10/28/23 10/28/23 10/28/23 16:40 14:50 14:40 WBC 8.24 RBC 2.95 L Hgb 8.8 L Hct 30.4 L MCV 103.1 H MCH 29.8 MCHC 28.9 L RDW Std Deviation 55.8 H RDW Coeff of [place] 14.7 H Plt Count 262 MPV 10.7 Neutrophils % (Manual) 93 Lymphocytes % (Manual) 3 Monocytes % (Manual) 1 Eosinophils % (Manual) 1 Basophils % (Manual) 1 Blast Cells % (Manual) 1 Neutrophils # (Manual) 7.66 H Total Absolute Neuts 7.66 H Lymphocytes # (Manual) 0.25 L Total Abs Lymphocytes 0.25 L Monocytes # (Manual) 0.08 L Eosinophils # (Manual) 0.08 Basophils # (Manual) 0.08 Blast Cells # (Man) 0.08 H RBC Morphology Unremarkable ABG pH 7.43 ABG pCO2 65 H ABG pO2 65 L ABG HCO3 43 H ABG O2 Saturation 95.7 H ABG Base Excess 15.5 H Ryan Test Pos Oxygen Given 4 L Sodium 143 Potassium 3.4 L Chloride 102 Carbon Dioxide 38 H Anion Gap 3 BUN 17 Creatinine 1.19 Est Cr Clr Drug Dosing 31.1 Est GFR ( Amer) 47.5 Est GFR (Non-Af Amer) 41.0 BUN/Creatinine Ratio 14.3 Glucose 131 H Calcium 8.2 L Magnesium 2.1 Total Bilirubin 0.4 AST 9 L ALT 7 Alkaline Phosphatase 73 Troponin I High Sens 9.2 Total Protein 5.5 L Albumin 2.7 L Globulin 2.8 Albumin/Globulin Ratio 1.0 Lipase 4 L TSH 1.984 Adenovirus (PCR) Not Detected B. pertussis DNA (PCR) Not Detected B.parapertussis DNA PCR Not Detected C. pneumoniae DNA (PCR) Not Detected Coronavirus OC43 (PCR) Not Detected Coronavirus HKU1 (PCR) Not Detected Coronavirus 229E (PCR) Not Detected SARS-CoV-2 (PCR) Not Detected Coronavirus NL63 (PCR) Not Detected Human Metapneumovir PCR Not Detected Influenza Type A (PCR) Not Detected Influenza Type B (PCR) Not Detected M. pneumoniae (PCR) Not Detected Parainfluenza 1 (PCR) Not Detected Parainfluenza 2 (PCR) Not Detected Parainfluenza 3 (PCR) Not Detected Parainfluenza 4 (PCR) Not Detected RSV (PCR) Not Detected Entero/Rhino (PCR) Not Detected Diagnostic Findings Head CT 10/28/23 14:07 CT OF THE HEAD WITHOUT CONTRAST CLINICAL HISTORY: Altered mental status. COMPARISON STUDY: Head CT June 22, 2021. MRI of the brain February 26, 2021. CT DOSE: 1002.27 mGy.cm TECHNIQUE: Helical axial images of the head were obtained without IV contrast. Automated exposure control was utilized for the study. A dose lowering technique was utilized adhering to the principles of ALARA. FINDINGS: No acute intracranial hemorrhage, midline shift or mass effect is present. The ventricular system is unremarkable. The basal cisterns are patent. No extra-axial collections are present. There are no findings to suggest acute dural sinus thrombosis or acute territorial infarct. No significant calvarial abnormalities are present. Bilateral mastoid air cells are partially opacified. This has increased since prior head CT. IMPRESSION: 1. No acute intracranial findings. 2. Partially opacified bilateral mastoid air cells. ACT 112: Negative or not required by law. Electronically signed by: Jamaal Phan M.D. 10/28/2023 4:10 PM Head CTA 10/28/23 14:07 CTA ANGIOGRAPHY OF THE HEAD CLINICAL HISTORY: Altered mental status. COMPARISON STUDY: CTA of the head November 27, 2018. TECHNIQUE: Helical axial images of the head were obtained following uneventful intravenous administration of 118 cc of Optiray. Sagittal and coronal rec onstructions were viewed as well as maximal intensity projections on an independent 3-D workstation. Automated exposure control was utilized for the study. A dose lowering technique was utilized adhering to the principles of ALARA. FINDINGS: No acute intracranial hemorrhage, midline shift or mass effect is present. Bilateral mastoid air cells are partially opacified. Basal cisterns are patent. There are no extra-axial collections. Bilateral M1, M2, A1 and A2 segments are patent. Posterior circulation is intact. There is no large vessel occlusion. No intracranial aneurysm is present. Major dural sinuses are patent. IMPRESSION: No large vessel occlusion. No intracranial aneurysm. ACT 112: Negative or not required by law. Electronically signed by: Jamaal hPan M.D. 10/28/2023 4:24 PM Neck CTA 10/28/23 14:07 CT ANGIOGRAPHY OF THE NECK WITH CONTRAST CLINICAL HISTORY: Altered mental status. COMPARISON STUDY: Carotid ultrasound February 26, 2021. CTA of the neck May 30, 2019. Technique: CT angiography of the carotid and vertebral arteries was obtained using Optiray and 3D reconstruction on an independent workstation. NASCET cri teria was utilized. Automated exposure control was utilized for the study. A dose lowering technique was utilized adhering to the principles of ALARA. Findings: Moderate to large bilateral pleural effusions are partially imaged. There is interlobular septal thickening within the lung apices. Multifocal airspace opacities within the lung apices are also noted, including a 2.9 cm left upper lobe opacity. There is no cervical lymphadenopathy. No cervical spine fractures are present. Bilateral common carotid and cervical internal carotid arteries are patent without significant stenosis. There is mild plaque within the carotid bifurcations extrinsic compression of the left vertebral artery at the C3-C4 level due to osteophytes is unchanged since prior CT. This results in 75% stenosis. IMPRESSION: 1. No stenosis within the bilateral common carotid or cervical internal carotid arteries. 2. No change in 75% extrinsic narrowing of the left vertebral artery since CTA of May 30, 2019. This is due to adjacent osteophytes. 3. Partially imaged moderate to large bilateral pleural effusions with interstitial pulmonary edema. Multifocal airspace opacities, including a 2.1 cm left upper lobe opacity favor superimposed pneumonia however alveolar pulmonary edema could appear similar. A follow-up chest CT in 2 months to ensure resolution is recommended. ACT 112: Negative or not required by law. Electronically signed by: Jamaal Phan M.D. 10/28/2023 4:18 PM Chest X-Ray 10/28/23 14:08 XR chest 1V portable CLINICAL HISTORY: Hypoxia. Fall. COMPARISON STUDY: Chest CT August 05, 2023. Chest radiograph August 28, 2023. FINDINGS: There is no pneumothorax. Asbck-xc-[id number] bilateral pleural effusions, right larger left, have increased in size. Interstitial thickening persists. Perihilar opacities are greater on the left. Cardiomegaly is again noted. 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 IMPRESSION: 1. No pneumothorax. Increase in size of acnpq-wa-rjxurfff bilateral pleural effusions. 2. Persistent pulmonary edema. Interval development of left perihilar opacities which favor alveolar pulmonary edema however superimposed pneumonia could appear similar. ACT 112: Negative or not required by law. Electronically signed by: Jamaal Phan M.D. 10/28/2023 3:29 PM Elbow X-Ray 10/28/23 14:20 XR elbow LT min 3V routine CLINICAL HISTORY: trauma COMPARISON: None FINDINGS: An IV within the left antecubital fossa is incidentally noted. Alignment of the left elbow is anatomic. There is no acute fracture. There is no evidence for left elbow joint effusion. IMPRESSION: No acute fracture. No evidence for a left elbow joint effusion. ACT 112: Negative or not required by law. Electronically signed by: Jamaal Phan M.D. 10/28/2023 3:31 PM Knee X-Ray 10/28/23 14:20 XR knee LT 3V CLINICAL HISTORY: trauma COMPARISON: Left femur radiographs October 20, 2016. FINDINGS: Alignment of the left knee is anatomic. There is no acute fracture. No significant joint effusion is present. 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 IMPRESSION: No fractures within the left knee. ACT 112: Negative or not required by law. Electronically signed by: Jamaal Phan M.D. 10/28/2023 3:30 PM Pelvis X-Ray 10/28/23 14:20 XR pelvis 1-2V routine CLINICAL HISTORY: trauma COMPARISON: Pelvis and right hip radiographs February 23, 2023. FINDINGS: Cholecystectomy clips, lumbar spine decompression and fusion and bilateral hip arthroplasties are incidentally noted. Sacroiliac joints and symphysis pubis are intact. No periprosthetic fractures are present. There are no acute fractures within the pelvis or hips. IMPRESSION: 1. No fractures within the pelvis or hips. 2. Intact total bilateral hip arthroplasties. No periprosthetic fracture or lucency. ACT 112: Negative or not required by law. Electronically signed by: Jamaal Phan M.D. 10/28/2023 3:32 PM ECG Additional Comments: Normal sinus rhythm, LBBB, no signs of ST wave inversions or ischemia-personally reviewed Code Status & VTE Plan Code Status DNR/DNI-discussed with patient at bedside Supervising Physician Co-Signing Physician Notes Attending addendum: The patient was seen and examined in emergency room She has been complaining of more shortness of breath and wheezing She has been falling frequently Denies any chest pain and/or palpitation On examination Lying in bed with moderate shortness of breath at rest Hemodynamically stable with low saturation 87 on 3 L Chest-decreased breath sounds with bibasilar crackles and wheezing Heart-S1-S2, regular Abdomen-benign Extremities-1+ edema bilaterally 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 Generally weak Her admission labs, imaging studies and EKG reviewed Has CHF with pneumonia without any evidence of fractures from the falls EKG showing normal sinus rhythm with left bundle branch block and nonspecific ST-T wave changes and troponins are normal Will give 20 of Lasix IV and also antibiotics have been started Agree with assessment plan as outlined above by Nenita Suarez (6) Coronary artery disease Associated angina: without angina Coronary Disease-Associated Artery/Lesion type: [place] artery [place] vs. transplanted heart: [place] heart Qualified Code(s): I25.10 - Atherosclerotic heart disease of [place] coronary artery with out angina pectoris
[2023-10-28] MEDS: cefTRIAXone SODIUM 2,000 MG/50 ML BAG IV STA (17:23)
[2023-10-28 17:34] LABS: Adenovirus PCR Not Detected (NotDetected); Bordetella parapertussis PCR Not Detected (NotDetected); Bordetella pertussis PCR Not Detected (NotDetected); Chlamydia pneumoniae PCR Not Detected (NotDetected); Coronavirus 229E PCR Not Detected (NotDetected); Coronavirus CoV-2 (COVID19)PCR Not Detected (NotDetected); Coronavirus HKU1 PCR Not Detected (NotDetected); Coronavirus NL63 PCR Not Detected (NotDetected); Coronavirus OC43PCR Not Detected (NotDetected); Human Metapneumovirus PCR Not Detected (NotDetected); Influenza A PCR Not Detected (NotDetected); Influenza B PCR Not Detected (NotDetected); Mycoplasma pneumoniae PCR Not Detected (NotDetected); Parainfluenza Virus 1 PCR Not Detected (NotDetected); Parainfluenza Virus 2 PCR Not Detected (NotDetected); Parainfluenza Virus 3 PCR Not Detected (NotDetected); Parainfluenza Virus 4 PCR Not Detected (NotDetected); Respiratory Syncytial VirusPCR Not Detected (NotDetected); Rhinovirus/Enterovirus PCR Not Detected (NotDetected)
[2023-10-28] MEDS: DOXYCYCLINE HYCLATE 100 MG in DEXTROSE 5% MINI-B 100 ML IV STA (17:51)
[2023-10-28] MEDS: FUROSEMIDE INJ 20 MG/2 ML VIAL IV ONE (18:15)
[2023-10-28 18:33] LABS: Appearance Urine Clear (Clear); Bacteria Urine Automated Negative (Negative); Bilirubin Urine Negative (Negative); Blood Urine Negative (Negative); Color Urine Yellow; Epithelial Cell Urine Auto >30 /lpf (0-5); Glucose Urine UA Negative (Negative); Ketones Urine Trace (Negative); Leukocyte Esterase Urine Negative (Negative); Nitrite Urine Negative (Negative); Protein Urine 1+ (Negative); Specific Gravity Urine > 1.045 (1.000-1.030); Urobilinogen Urine Negative (Negative); pH Urine 6.5 (4.5-7.5)
[2023-10-28] MEDS ORDERED: ONDANSETRON INJ 2 MG/ML 2 ML VIAL IV PRN (19:13)
[2023-10-28] MEDS ORDERED: IPRATROPIUM BROMIDE/ALBUTEROL respimat INH INH PRN (19:13)
[2023-10-28] MEDS ORDERED: ALBUTEROL HFA 8 GM INHALER INH PRN (19:13)
[2023-10-28] MEDS ORDERED: PANTOprazole 40 MG TAB PO SCH (19:13)
[2023-10-28] MEDS: ALBUT/IPRATROP 3MG/0.5MG NEB 3 ML VIAL NEB SCH (20:01)
[2023-10-28] MEDS: ACETAMINOPHEN 325 MG TAB PO SCH (21:59)
[2023-10-28] MEDS: POTASSIUM CHLORIDE CRTAB 20 MEQ TABCR PO STA (21:59)
[2023-10-28] MEDS: APIXABAN 5 MG TABLET PO SCH (22:00)
[2023-10-28] MEDS: ATORVASTATIN 10 MG TAB PO SCH (22:01)
[2023-10-28] MEDS: guaiFENesin 600 MG TABCR PO SCH (22:01)
[2023-10-28] MEDS: METOPROLOL SUCC 25MG EXT REL TAB PO SCH (22:02)
[2023-10-28] MEDS: MIRTAZAPINE TAB 15 MG TAB PO SCH (22:07)
[2023-10-28] MEDS: PANTOprazole 40 MG TAB PO SCH (22:07)
[2023-10-28] MEDS: CEROVITE ADV FORMULA TAB PO SCH (22:08)
[2023-10-28] MEDS: BENZONATATE 100 MG CAPSULE PO SCH (22:36)
[2023-10-29] MEDS: methylPREDNISolone 40 MG in SYRINGE 0 ML IV SCH (01:12)
[2023-10-29] MEDS: DOXYCYCLINE HYCLATE 100 MG in DEXTROSE 5% MINI-B 100 ML IV SCH (05:33)
[2023-10-29] MEDS: AMIODARONE 200 MG TAB PO SCH (08:22)
[2023-10-29] MEDS: ERGOCALCIFEROL 1250 MCG (50,000 UNITS) CAP PO SCH (08:23)
[2023-10-29] MEDS: ASPIRIN 81 MG ECTAB PO SCH (08:23)
[2023-10-29] MEDS: FLUoxetine HCL 10 MG CAP PO SCH (08:24)
[2023-10-29] MEDS: amLODIPine BESYLATE 5 MG TAB PO SCH (08:25)
[2023-10-29] MEDS: MECLIZINE 12.5 MG TAB PO PRN (08:26)
[2023-10-29] MEDS: FLUTICASONE FUROATE 100MCG 14 PUFFS/INHALER INH SCH (08:33)
[2023-10-29] MEDS: UMECLIDINIUM/VILANTEROL 62.5/25MCG 7 PUFFS/INHALER INH SCH (08:34)
[2023-10-29] MEDS ORDERED: NON-FORMULARY MEDICATION (Fluticasone-Umeclidin-Vilanter [Trelegy Ellipta] 100-62.5-25 mcg INH SCH (09:00)
[2023-10-29 09:25] LABS: Hematocrit (blood only) 36.4 % (37.0-47.0); Hemoglobin 10.5 g/dl (12.0-16.0); Mean Corpuscular Hemoglobin 30.1 pg (25.0-34.0); Mean Corpuscular Hgb Conc 28.8 g/dL (32.0-36.0); Mean Corpuscular Volume 104.3 fL (80.0-100.0); Mean Platelet Volume 10.9 fL (9.4-12.4); Platelet Count 276 K/uL (130-400); RDW Coefficient of Variation 14.9 % (11.5-14.5); RDW Standard Deviation 57.6 fL (36.4-46.3); Red Blood Count 3.49 M/uL (4.20-5.40); White Blood Count 6.21 K/ul (4.8-10.8)
[2023-10-29 09:44] LABS: Calcium 8.6 mg/dl (8.6-10.3); Potassium 4.3 mmol/L (3.5-5.1)
[2023-10-29 09:50] LABS: BUN Creatinine Ratio 13.7 (10-20); Creatinine Clr Calc Pharmacy 31.7 ml/min; Est GFR (African American) 48.5 ml/min; Est GFR (Non-African American) 41.9 ml/min
--- NOTE | 2023-10-29 13:13 | Hospitalist Progress Note ---
Date of Service October 29, 2023 Assessment & Plan (1) AMS (altered mental status): (2) Chronic hypoxic respiratory failure: (3) Acute respiratory failure with hypoxia and hypercapnia: (4) COPD (chronic obstructive pulmonary disease) with emphysema: (5) Chronic heart failure with preserved ejection fraction (HFpEF): (6) Coronary artery disease: (7) Paroxysmal atrial fibrillation: (8) S/P TAVR (transcatheter aortic valve replacement): (9) Left bundle branch block: (10) CKD (chronic kidney disease), stage III: (11) HTN (hypertension): (12) Dyslipidemia: Plan: 88-year-old female with PMH of chronic hypoxic respiratory failure, chronic diastolic CHF, COPD, remote tobacco use [smoking 2 packs a day x 60 years, quit 7 years ago], pulmonary nodules, pleural effusion, HTN, HLD, CAD, bilateral carotid artery stenosis, severe aortic stenosis, stenosis of left vertebral artery, status post TAVR, LBBB, macular degeneration of right eye, CKD stage III, GERD presented to the hospital 10/28 with new onset acute shortness of breath and cough [associated with yellow/green sputum] for the past 2 days [employer]REE WORK[employer]. She is being managed for the following: Multifocal pneumonia Acute exacerbation of COPD Former smoker Likely acute on chronic diastolic CHF: Pleural effusion and pulmonary edema Respiratory failure with hypercapnia and hypoxia: Multifactorial, stable Patient presenting with shortness of breath and cough with yellow sputum. Admitting imaging suggestive of multifocal airspace opacities, bilateral pleural effusion, pulmonary edema, 2.1 cm left upper lobe opacity. Follow-up CT chest in 2 months recommended to document resolution. ABG at presentation with hypercapnia and hypoxia. Respiratory BioFire is negative. Continue home inhalers, Mucinex, incentive spirometer, flutter valve. Patient uses 2-3 L oxygen at home, needing 5 L here Patient received a dose of Lasix in the ED, will give additional dose today. Repeat CXR tomorrow. Continue with IV Solu-Medrol, Rocephin and doxycycline started 10/28. Pulmonology consult, await recommendation. Frequent falls: Admitting pelvic x-ray, elbow x-ray, knee x-ray, neck CT and head CTA and head CT with no acute findings. PT/OT consult. Paroxysmal A-fib Calcific aortic stenosis, status post TAVR Hx of afib RVR issues with previous hospitalizations due to pneumonia Continue metoprolol 12.5 mg QID, amiodarone 200 mg daily Continue eliquis 5mg bid At home take furosemide MWF, give Lasix as above Monitor and replete electrolytes. Mild nonobstructive CAD per cardiac catheterization 01/27/2019 Left bundle branch block noted post TAVR 05/27/2019 Chronic heart failure with preserved ejection fraction (HFpEF): On Lasix 20 mg MWF at home Continue home medications CKD III: Chronic, stable, slightly better than baseline currently with Cr of 1.19/BUN 17-likely secondary to trace volume overload, appears baseline Cr. is 1.2-1.4 DVT ppx: teds, scds FEN/GI: Heart healthy diet CODE: DNR/DNI Admission and Anticipated Discharge Date Admission Date: October 28, 2023 Subjective Patient was seen and examined at bedside. Patient was lying in bed, on 5 L oxygen via oxygen mask, denies chest pain, reports cough with yellow mucus, reports poor appetite and not feeling hungry, l ast bowel movement was on Sunday, denies belly pain, denies any pain or burning with passing urine. Physical Exam Physical Exam: GENERAL: Alert and oriented x3. NAD, on 5 L via oxygen mask. Appears chronically ill/weak/frail HEENT: No pallor, no icterus. Pupils equal, round and reactive to light. Oral mucosa moist. NECK: No JVD, no neck masses. HEART: S1 and S2 heard. Regular rate and rhythm. No murmur, no gallop. RESPIRATORY SYSTEM: Normal AP diameter. No accessory muscle use. + wheezing, left upper lobe crackles. ABDOMEN: Soft, bowel sounds present, nontender, no distention. CENTRAL NERVOUS SYSTEM: No facial droop. Speech is clear. Obeys simple commands. Moves extremities. EXTREMITIES: Plus BLE edema, no erythema seen. Results & Data Results & Data Vital Signs (Past 12 Hours) Vital Signs Pulse Pulse Resp BP Pulse Ox O2 Del Method O2 Flow Rate 10/29/23 12:50 81 18 120/67 93 Nasal Cannula 5 10/29/23 10:33 76 20 94 Nasal Cannula 4 10/29/23 10:00 75 20 144/69 H 97 Oxymask 5 10/29/23 08:21 78 19 187/69 H 97 Oxymask 5 10/29/23 07:50 71 02/24 07:11 75 20 94 Oxymask 4 10/29/23 06:00 68 18 166/69 H 97 Oxymask 5 10/29/23 04:00 59 L 16 99/53 L 100 Oxymask 5 10/29/23 02:52 63 16 108/47 L 100 Oxymask 5 10/29/23 02:51 62 14 100 Oxymask 6 10/29/23 01:43 Oxymask 5 (6) Coronary artery disease Associated angina: without angina Coronary Disease-Associated Artery/Lesion type: [place] artery [place] vs. transplanted heart: [place] heart Qualified Code(s): I25.10 - Atherosclerotic heart disease of [place] coronary artery without angina pectoris
[2023-10-29] MEDS: FUROSEMIDE INJ 20 MG/2 ML VIAL IV ONE (14:10)
[2023-10-29] MEDS: guaiFENesin/DEXTROM SYRUP 200MG/20MG 10ML UDC PO SCH (15:03)
[2023-10-29] MEDS: cefTRIAXone SODIUM 1,000 MG in DEXTROSE 5 % MINI-B 50 ML IV SCH (15:05)
--- NOTE | 2023-10-29 15:11 | Pulmonary Consultation ---
Date of Consultation October 29, 2023 Assessment & Plan (1) COPD (chronic obstructive pulmonary disease): (2) Acute respiratory failure with hypoxia and hypercapnia: (3) Pleural effusion: (4) Chronic hypoxic respiratory failure: (5) Chronic heart failure with preserved ejection fraction (HFpEF): Plan Chest x-ray 10/28/2023 personally reviewed: Portable film, good inspiratory effort, blunting of bilateral costophrenic angles, increased cardiac silhouette, increased pulmonary vascular markings 2D echo 08/06/2023: EF 55%, grade 1 diastolic dysfunction, moderate concentric LVH, RV not well-visualized -- Acute on chronic hypoxic respiratory failure Likely secondary to HFpEF with bilateral pleural effusion Respiratory bio fire negative for everything --Bilateral pleural effusion Secondary to HFpEF Continue with diuretics to keep the patient negative balance BiPAP nightly and as needed shortness of breath -- 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 Khan Plan: Continue with diuretics to keep the patient negative balance BiPAP 10/6 and increase the EPAP as tolerated to 8 possible No plan for thoracentesis right now Difficult to ascertain if the patient has pneumonia. Chest x-ray portable view shows bilateral pleural effusion. If the procalcitonin is negative would recommend to de-escalate antibiotics Please note the above document was generated using voice recognition software. It may contain grammatical, syntax or spelling errors.Any formal questions or concerns about the content, text or information contained within the body of this dictation should be directly addressed to the provider for clarification. History of Present Illness Attending Physician: Gareth Guzman MD History of Present Illness 88-year-old female admitted to the hospital for worsening shortness of breath Past medical history: COPD on 3 L oxygen, HFpEF, A-fib, s/p TAVR, CKD 3 Pulmonary consulted for acute on chronic hypoxic respiratory failure At the time of examination patient's was in the room Please make note patient is hard to hear. She was saturating 94% on 2 L nasal cannula. I went down to 2 L. She had gotten dose of Lasix prior to me seeing her. Denied any dysuria, no diarrhea. Does complain of cough but does not have any difficulty bringing it up Denies any hemoptysis No hematuria, no hematochezia Denies any chest pain No fever or chills No dizziness As per the patient is compliant with her medications Social history: > [id number] smoking history, quit approximately 12-15 years ago Allergies Allergy/AdvReac Type Severity Reaction Status Date / Time Sulfa (Sulfonamide Allergy Severe SHORT OF Verified 08/28/23 23:49 Antibiotics) BREATH, ITCHING PER [facility] atenolol AdvReac Intermediate STOMACH Verified 08/28/23 23:49 PAIN PER [facility] lisinopril AdvReac Intermediate HYPERKALEMIA Verified 08/28/23 23:49 PER [facility] Home Medications Medication Instructions Recorded Confirmed Type meclizine 25 mg chewable tablet 25 mg PO TID PRN Dizziness 12/31/18 10/28/23 History vit C 250 mg-vit E 90 mg-zinc 40 1 tab PO [facility] 05/29/19 10/28/23 History mg-copper 1 [id number] capsule (PreserVision AREDS-2) ondansetron 4 mg disintegrating 4 - 8 mg PO Q8H PRN Nausea 05/16/20 10/28/23 History tablet aspirin 81 mg tablet,delayed 81 mg PO QAM 10/29/21 10/28/23 History release ergocalciferol (vitamin D2) 1,250 50,000 unit PO WK 10/29/21 10/28/23 History mcg (50,000 unit) capsule hydrocodone 5 mg-acetaminophen 325 1 tab PO Q8 PRN Pain 10/29/21 10/28/23 History mg tablet zolpidem 5 mg tablet (Ambien) 5 mg PO HS PRN Sleep 10/29/21 10/28/23 History fluoxetine 10 mg tablet 10 mg PO QAM 09/27/22 10/28/23 History furosemide 20 mg tablet 20 mg PO 3XWK 09/27/22 10/28/23 History fluticasone fur. 100 mcg-umeclid 1 inh inhalation QAM #60 ea 01/26/23 10/28/23 Rx 62.5 mcg-vilant 25 mcg inhalat.powder (Trelegy Ellipta) atorvastatin 10 mg tablet 10 mg PO HS #30 tabs 08/12/23 10/28/23 Rx acetaminophen 325 mg tablet 975 mg PO Q8H 08/28/23 10/28/23 History (Tylenol) amoxicillin 500 mg capsule 2,000 mg PO DIRECTED PRN 1 HR 08/28/23 10/28/23 History PRIOR TO DENTAL PROCEDURES guaifenesin 600 mg tablet, 600 mg PO [facility] 08/28/23 10/28/23 History extended release 12 hr (Mucinex) ipratropium 20 mcg-albuterol 100 1 puff inhalation QID PRN 08/28/23 10/28/23 History mcg/actuation mist for inhalation NEEDED PER [facility] albuterol sulfate 90 mcg/actuation 2 inh inhalation Q6H PRN shortness 08/29/23 10/28/23 History aerosol inhaler (Ventolin HFA) of breath or wheezing amiodarone 200 mg tablet 200 mg PO QAM 08/29/23 10/28/23 History Oxygen Home #1 ea 09/24/23 10/28/23 Rx amlodipine 5 mg tablet 5 mg PO QAM 10/28/23 10/28/23 History apixaban 5 mg tablet (Eliquis) 5 mg PO [facility] 10/28/23 10/28/23 History metoprolol succinate 25 mg 12.5 mg PO [facility] 10/28/23 10/28/23 History tablet,extended release 24 hr mirtazapine 15 mg tablet 15 mg PO HS 10/28/23 10/28/23 History omeprazole 20 mg capsule,delayed 20 mg PO [facility] 10/28/23 10/28/23 History release pantoprazole 20 mg tablet,delayed 20 mg PO AMPM 10/28/23 10/28/23 History release Patient History Medical History Febrile illness MISAEL (acute kidney injury) Fall Pneumonia Vertebral artery stenosis 75% stenosis of left vertebral artery per 05/30/2019 neck CTA Traumatic subarachnoid hemorrhage hx - 02/2021? Vertigo Coronary artery disease "diffuse minor CAD by cardiac catheterization 01/27/2019" per [facility] cardio note 06/29/2021 Hip dislocation, left currently in a brace Transient ischemic attack (TIA) possible per cardio note, 02/26/2021-negative CT and MRI imaging-on ASA per cardio with Plavix d/c due to subdural hematoma that subsequently resolved (cleared by neurosurgery [facility]) Macular degeneration Dyspnea Multiple pulmonary nodules determined by computed tomography of lung no further imaging needed given stability from 2019 per [facility]m note 07/08/2021 Left bundle branch block chronic per [facility] cardio note-noted post TAVR 05/27/2019 per [facility] cardio note HTN (hypertension) controlled, stable per pt Dyslipidemia CKD (chronic kidney disease), stage III Osteoporosis COPD (chronic obstructive pulmonary disease) follows with [facility] pulm, on Trelegy Carotid stenosis 50-69% TONNY 03/12/2019 duplex per [facility] cardio GERD (gastroesophageal reflux disease) controlled, stable per pt Surgical History History of colonoscopy S/P revision of total hip left hip History of cardiac catheterization 05/15/2019 TAVR. 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 Bearden at [facility], 02/26/2021-normal gradient S/P tonsillectomy and adenoidectomy History of cataract surgery RT/LEFT H/O hernia repair RT INGUINAL HERNIA History of hysterectomy Family History Other No family history of adverse response to anesthesia Stroke Social History Smoking Status: Former smoker Second Hand Exposure: Yes (son smokes); Do You Dip or Chew Tobacco: No; Hx Alcohol Use: No Hx Substance Use: No Preferred Language: Armenian Communication Ability: Effective Policy Change Clerk Required: No Beliefs That Will Affect Care: None marital status: Current Living Situation: Spouse Feels Safe at Home: Yes Safety Concerns: Feels Safe At This Time Assistive Devices: Brace/Splint/Immobilizer, Cane, Glasses and Walker Review of Systems 2 Review of Systems: All systems reviewed & are unremarkable except as noted in HPI & below Physical Exam 2 Physical Exam: Constitutional: No acute distress HEENT: EOMI, PERRLA, hard to hear, positive JVD Respiratory system: Decreased air entry bilaterally, no wheeze, no rhonchi, positive crackles appreciated bilaterally CVS: S1-S2 positive, positive 3 out of 6 systolic murmur appreciated best at aorta Abdomen: Soft, nontender, nondistended, positive bowel sounds x4 Extremities: +2 pulses bilaterally radialis/ dorsalis pedis, no cyanosis, +2 pitting edema bilateral lower extremity Neuro: Awake alert oriented x3 Psych: Normal mood and affect G/U: Positive Davis Skin: no rashes, warm and dry Lymphatic: no cervical or axillary lymphadenopathy Results & Data Results & Data Vital Signs (Past 12 Hours) Vital Signs Pulse Pulse Resp BP Pulse Ox O2 Del Method O2 Flow Rate 10/29/23 12:50 81 18 120/67 93 Nasal Cannula 5 10/29/23 10:33 76 20 94 Nasal Cannula 4 10/29/23 10:00 75 20 144/69 H 97 Oxymask 5 10/29/23 08:21 78 19 187/69 H 97 Oxymask 5 10/29/23 07:50 71 10/29/23 07:11 75 20 94 Oxymask 4 10/29/23 06:00 68 18 166/69 H 97 Oxymask 5 10/29/23 04:00 59 L 16 99/53 L 100 Oxymask 5 10/29/23 02:52 63 16 108/47 L 100 Oxymask 5 10/29/23 02:51 62 14 100 Oxymask 6 Laboratory Results 10/29/23 09:08 10/29/23 09:08 PG Care Time/CCT Total # of Minutes Spent Total Time Spent with Patient: Total time spent is greater than 50% in coordination of care (as documented) at patient's floor/unit and/or counseling patient: Coding Level of Care Code 83509 INT INP/OBS CARE 3/75MIN Diagnoses COPD (chronic obstructive pulmonary disease) J44.9 Acute respiratory failure with hypoxia and hypercapnia J96.01; J96.02 Pleural effusion J90 Chronic hypoxic respiratory failure J96.11 Chronic heart failure with preserved ejection fraction (HFpEF) I50.32
[2023-10-29] MEDS: ZOLPIDEM TARTRATE 5 MG TAB PO PRN (20:13)
[2023-10-30 07:10] LABS: Hematocrit (blood only) 30.5 % (37.0-47.0); Mean Corpuscular Hemoglobin 29.9 pg (25.0-34.0); Mean Corpuscular Hgb Conc 29.5 g/dL (32.0-36.0); Mean Corpuscular Volume 101.3 fL (80.0-100.0); Mean Platelet Volume 10.6 fL (9.4-12.4); Platelet Count 286 K/uL (130-400); RDW Standard Deviation 56.7 fL (36.4-46.3); Red Blood Count 3.01 M/uL (4.20-5.40); White Blood Count 12.27 K/ul (4.8-10.8)
[2023-10-30 07:57] LABS: BUN Creatinine Ratio 18.8 (10-20); Calcium 8.4 mg/dl (8.6-10.3); Creatinine Clr Calc Pharmacy 31.7 ml/min; Est GFR (African American) 48.5 ml/min; Est GFR (Non-African American) 41.9 ml/min; Magnesium 2.1 mg/dl (1.7-2.4); Phosphorus 2.8 mg/dl (2.5-4.9); Potassium 4.2 mmol/L (3.5-5.1)
[2023-10-30] MEDS: FUROSEMIDE INJ 20 MG/2 ML VIAL IV SCH (11:43)
--- NOTE | 2023-10-30 11:46 | Pulmonology Progress Note ---
Date of Service October 30, 2023 Assessment & Plan (1) COPD (chronic obstructive pulmonary disease): (2) Acute respiratory failure with hypoxia and hypercapnia: (3) Pleural effusion: (4) Chronic hypoxic respiratory failure: (5) Chronic heart failure with preserved ejection fraction (HFpEF): Plan Chest x-ray 10/28/2023 personally reviewed: Portable film, good inspiratory effort, blunting of bilateral costophrenic angles, increased cardiac silhouette, increased pulmonary vascular markings 2D echo 08/06/2023: EF 55%, grade 1 diastolic dysfunction, moderate concentric LVH, RV not well-visualized -- Acute on chronic hypoxic respiratory failure Likely secondary to HFpEF with bilateral pleural effusion Respiratory bio fire negative for everything BNP 674, procalcitonin negative --Bilateral pleural effusion Secondary to HFpEF Continue with diuretics to keep the patient negative balance BiPAP nightly and as needed shortness of breath -- 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 Khan Procalcitonin negative Plan: In/out: -680, urine output 1050 Continue with diuretics to keep the patient negative balance Unfortunately patient was not able to tolerate BiPAP and she is not willing to try it again. No plan for thoracentesis right now Patient's procalcitonin was negative, likelihood of patient having pneumonia is low Metabolic alkalosis is likely from diuretics. Will give a dose of acetazolamide later today Please note the above document was generated using voice recognition software. It may contain grammatical, syntax or spelling errors.Any formal questions or concerns about the content, text or information contained within the body of this dictation should be directly addressed to the provider for clarification. Admission and Anticipated Discharge Date Admission Date: October 28, 2023 Subjective Patient seen and examined at bedside. No acute distress, no adverse events overnight She was saturating 96-97% on 4 L nasal cannula. I went down to 2 L. Stated that she is feeling better compared to when she came to the hospital Has been urinating well. No abdominal pain. Denies any significant cough. She was not able to tolerate BiPAP overnight and she returned Review of Systems 2 Review of Systems: All systems reviewed & are unremarkable except as noted in Subjective Physical Exam 2 Physical Exam: Constitutional: No acute distress HEENT: EOMI, PERRLA, hard to hear, positive JVD Respiratory system: Decreased air entry bilaterally, no wheeze, no rhonchi, positive crackles appreciated bilaterally CVS: S1-S2 positive, positive 3 out of 6 systolic murmur appreciated best at aorta Abdomen: Soft, nontender, nondistended, positive bowel sounds x4 Extremities: +2 pulses bilaterally radialis/ dorsalis pedis, no cyanosis, +2 pitting edema bilateral lower extremity Neuro: Awake alert oriented x3 Psych: Normal mood and affect G/U: Positive Davis Skin: no rashes, warm and dry Lymphatic: no cervical or axillary lymphadenopathy Results & Data Results & Data Vital Signs (Past 12 Hours) Vital Signs Pulse Pulse Resp BP Pulse Ox O2 Del Method O2 Flow Rate 10/30/23 10:43 79 20 92 Nasal Cannula 3 10/30/23 07:44 81 10/30/23 07:07 74 16 98 Oxymask 3 10/30/23 06:00 73 17 106/48 L 96 Oxymask 3 10/30/23 02:00 73 18 109/50 L 97 Oxymask 3 10/30/23 01:17 78 Laboratory Results 10/30/23 06:23 10/30/23 06:23 PG Care Time/CCT Total # of Minutes Spent Total Time Spent with Patient: Total time spent is greater than 50% in coordination of care (as documented) at patient's floor/unit and/or counseling patient: Coding Level of Care Code 49016 SUB INP/OBS CARE 3/50MIN Diagnoses COPD (chronic obstructive pulmonary disease) J44.9 Acute respiratory failure with hypoxia and hypercapnia J96.01; J96.02 Pleural effusion J90 Chronic hypoxic respiratory failure J96.11 Chronic heart failure with preserved ejection fraction (HFpEF) I50.32
--- NOTE | 2023-10-30 15:57 | Hospitalist Progress Note ---
Date of Service October 30, 2023 Assessment & Plan (1) AMS (altered mental status): (2) Chronic hypoxic respiratory failure: (3) Acute respiratory failure with hypoxia and hypercapnia: (4) COPD (chronic obstructive pulmonary disease) with emphysema: (5) Chronic heart failure with preserved ejection fraction (HFpEF): (6) Coronary artery disease: (7) Paroxysmal atrial fibrillation: (8) S/P TAVR (transcatheter aortic valve replacement): (9) Left bundle branch block: (10) CKD (chronic kidney disease), stage III: (11) HTN (hypertension): (12) Dyslipidemia: Plan: 88-year-old female with PMH of chronic hypoxic respiratory failure, chronic diastolic CHF, COPD, remote tobacco use [smoking 2 packs a day x 60 years, quit 7 years ago], pulmonary nodules, pleural effusion, HTN, HLD, CAD, bilateral carotid artery stenosis, severe aortic stenosis, stenosis of left vertebral artery, status post TAVR, LBBB, macular degeneration of right eye, CKD stage III, GERD presented to the hospital 10/28 with new onset acute shortness of breath and cough [associated with yellow/green sputum] for the past 2 days [employer]. She is being managed for the following: Concern for Multifocal pneumonia concern for Acute exacerbation of COPD: resp status stable, no wheezing today, steroid dc'd as less likely for exacerbation per pulm. Former smoker Likely acute on chronic diastolic CHF: Pleural effusion and pulmonary edema Respiratory failure with hypercapnia and hypoxia: Multifactorial, stable Patient presenting with shortness of breath and cough with yellow sputum. Admitting imaging suggestive of multifocal airspace opacities, bilateral pleural effusion, pulmonary edema, 2.1 cm left upper lobe opacity. Follow-up CT chest in 2 months recommended to document resolution. ABG at presentation with hypercapnia and hypoxia. Respiratory BioFire is negative. Continue home inhalers, Mucinex, incentive spirometer, flutter valve. Patient uses 2-3 L oxygen at home, now back to 3L O2 Patient received a dose of Lasix in the ED, will c/w iv lasix daily for now Continue with Rocephin and doxycycline started 10/28. 5 day course. Pulmonology consult, appreciate recommendation. BNP elevated, pt w/ improving SOB, repeat CXR in AM, c/w iv lasix and fluid restriction. Will get updated echo. will need f/u w/ cardio on dc. Frequent falls: Admitting pelvic x-ray, elbow x-ray, knee x-ray, neck CT and head CTA and head CT with no acute findings. PT/OT consult. Paroxysmal A-fib Calcific aortic stenosis, status post TAVR Hx of afib RVR issues with previous hospitalizations due to pneumonia Continue metoprolol 12.5 mg QID, amiodarone 200 mg daily Continue eliquis 5mg bid At home take furosemide MWF, give Lasix as above Monitor and replete electrolytes. Mild nonobstructive CAD per cardiac catheterization 01/27/2019 Left bundle branch block noted post TAVR 05/27/2019 Chronic heart failure with preserved ejection fraction (HFpEF): On Lasix 20 mg MWF at home Continue home medications CKD III: Chronic, stable, slightly better than baseline currently with Cr of 1.19/BUN 17-likely secondary to trace volume overload, appears baseline Cr. is 1.2-1.4 DVT ppx: teds, scds FEN/GI: Heart healthy diet CODE: DNR/DNI Admission and Anticipated Discharge Date Admission Date: October 28, 2023 Subjective Patient was seen and examined at bedside. Patient was lying in bed, on 3 L oxygen via [place], denies chest pain, reports no cough, reports improving appetite, denies belly pain, denies any pain or burning with passing urine. Physical Exam Physical Exam: GENERAL: Alert and oriented x3. NAD, on 3L via NC. Appears chronically ill/weak/frail HEENT: No pallor, no icterus. Pupils equal, round and reactive to light. Oral mucosa moist. NECK: No JVD, no neck masses. HEART: S1 and S2 heard. Regular rate and rhythm. No murmur, no gallop. RESPIRATORY SYSTEM: Normal AP diameter. No accessory muscle use. no wheezing, left upper lobe crackles improving. ABDOMEN: Soft, bowel sounds present, nontender, no distention. CENTRAL NERVOUS SYSTEM: No facial droop. Speech is clear. Obeys simple commands. Moves extremities. EXTREMITIES: trace to 1+ BLE edema, no erythema seen. Results & Data Results & Data Vital Signs (Past 12 Hours) Vital Signs Pulse Pulse Resp BP Pulse Ox O2 Del Method O2 Flow Rate 10/30/23 14:55 81 16 94 Nasal Cannula 3 10/30/23 14:07 95 10/30/23 14:00 83 20 120/56 L 95 Nasal Cannula 3 10/30/23 12:00 84 18 133/51 L 94 Nasal Cannula 3 10/30/23 10:43 79 20 92 Nasal Cannula 3 10/30/23 07:44 81 10/30/23 07:07 74 16 98 Oxymask 3 10/30/23 06:00 73 17 106/48 L 96 Oxymask 3 (6) Coronary artery disease Associated angina: without angina Coronary Disease-Associated Artery/Lesion type: [place] artery [place] vs. transplanted heart: [place] heart Qualified Code(s): I25.10 - Atherosclerotic heart disease of [place] coronary artery without angina pectoris
[2023-10-30] MEDS: acetaZOLAMIDE 250 MG in SYRINGE 0 ML IV ONE (18:15)
[2023-10-30] MEDS: MELATONIN 3 MG TAB PO PRN (23:23)
[2023-10-31 06:43] LABS: Hematocrit (blood only) 30.5 % (37.0-47.0); Mean Corpuscular Hgb Conc 29.5 g/dL (32.0-36.0); Mean Corpuscular Volume 101.7 fL (80.0-100.0); Mean Platelet Volume 10.6 fL (9.4-12.4); Platelet Count 306 K/uL (130-400); RDW Coefficient of Variation 15.6 % (11.5-14.5); RDW Standard Deviation 58.3 fL (36.4-46.3); White Blood Count 14.84 K/ul (4.8-10.8)
[2023-10-31 07:24] LABS: BUN Creatinine Ratio 17.8 (10-20); Calcium 8.7 mg/dl (8.6-10.3); Creatinine Clr Calc Pharmacy 25.3 ml/min; Est GFR (African American) 40.8 ml/min; Est GFR (Non-African American) 35.2 ml/min; Magnesium 2.2 mg/dl (1.7-2.4); Phosphorus 2.3 mg/dl (2.5-4.9); Potassium 4.1 mmol/L (3.5-5.1)
--- NOTE | 2023-10-31 09:08 | Pulmonology Progress Note ---
Date of Service October 31, 2023 Assessment & Plan (1) COPD (chronic obstructive pulmonary disease): (2) Acute respiratory failure with hypoxia and hypercapnia: (3) Pleural effusion: (4) Chronic hypoxic respiratory failure: (5) Chronic heart failure with preserved ejection fraction (HFpEF): Plan Chest x-ray 10/28/2023 personally reviewed: Portable film, good inspiratory effort, blunting of bilateral costophrenic angles, increased cardiac silhouette, increased pulmonary vascular markings 2D echo 08/06/2023: EF 55%, grade 1 diastolic dysfunction, moderate concentric LVH, RV not well-visualized -- Acute on chronic hypoxic respiratory failure Likely secondary to HFpEF with bilateral pleural effusion Respiratory bio fire negative for everything BNP 674, procalcitonin negative --Bilateral pleural effusion Secondary to HFpEF Continue with diuretics to keep the patient negative balance BiPAP nightly and as needed shortness of breath -- 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 Khan Procalcitonin negative Plan: In/out: -1605 mL Continue with diuretics to keep the patient negative balance. Has not tolerated BiPAP. While patient would benefit from PAP in the setting of end stage COPD, patient would benefit, but this is certainly her decision to make at this time. Persistent metabolic alkalosis is likely from diuretics. Please note the above document was generated using voice recognition software. It may contain grammatical, syntax or spelling errors.Any formal questions or concerns about the content, text or information contained within the body of this dictation should be directly addressed to the provider for clarification. Admission and Anticipated Discharge Date Admission Date: October 28, 2023 Supervising Physician Co-Signing Physician Notes I saw and evaluated the patient with Finesse Arteaga PA-C, and agree with findings and plan as documented in the note. Patient seen and examined at bedside. No acute distress, no adverse events overnight Patient was saturating 93-94% on 3 L nasal cannula at rest. Patient stated that her breathing is labored today compared to yesterday. She has been urinating well. Denies any abdominal pain, no chest pain No headache, no blurry vision Constitutional: No acute distress HEENT: EOMI, PERRLA, hard to hear, positive JVD Respiratory system: Decreased air entry bilaterally, no wheeze, no rhonchi, positive crackles appreciated bilaterally CVS: S1-S2 positive, positive 3 out of 6 systolic murmur appreciated best at aorta Abdomen: Soft, nontender, nondistended, positive bowel sounds x4 Extremities: +2 pulses bilaterally radialis/ dorsalis pedis, no cyanosis, +2 pitting edema bilateral lower extremity Neuro: Awake alert oriented x3 Psych: Normal mood and affect G/U: Positive Davis Plan: Chest x-ray from today does not show any significant change compared to the time of presentation, may be mild improvement in aeration. She is diuresing well and is -1.6 L since coming to the hospital. There is a bump in her creatinine. Will still recommend to continue with diuretics. Hold apixaban as of today. If the patient still complains of significant shortness of breath then will consider thoracentesis on Sunday which would be 48 hours since stopping of apixaban Case was discussed with RN at bedside Please note the above document was generated using voice recognition software. It may contain grammatical, syntax or spelling errors.Any formal questions or concerns about the content, text or information contained within the body of this dictation should be directly addressed to the provider for clarification. Subjective Patient seen and evaluated at bedside. She is back to her baseline oxygen requirement this time. She reports occasional difficulty with positions. She has not been out of bed yet. Review of Systems Review of Systems: Unchanged from admission. Physical Exam Physical Exam: VITAL SIGNS - Vital signs and nursing notes were reviewed. GENERAL - 88-year-old male appearing her stated age who is in no acute distress. Hard of hearing. Communicates well with provider and answers questions appropriately. LUNGS - Kyphotic appearing. Auscultation reveals bibasilar rales without wheezes. CARDIAC - RRR with S1/S2. No murmur, rubs, or gallops appreciated. EXTREMITIES - Nail clubbing not present. No peripheral cyanosis. No pretibial edema present. +3/5 radial palpated throughout. PSYCH - A&Ox3 and cooperates fully with examiner. Pt is very pleasant and interacts well with examiner. Skin: no rashes, warm and dry Lymphatic: no cervical or axillary lymphadenopathy Results & Data Results & Data Vital Signs (Past 12 Hours) Vital Signs Temp Pulse Pulse Resp BP Pulse Ox O2 Del Method 10/31/23 05:53 71 17 95 Nasal Cannula 10/31/23 03:52 36.4 C L 70 18 143/77 H 93 Nasal Cannula 10/30/23 23:34 36.7 C 77 16 119/66 95 Nasal Cannula 10/30/23 22:44 80 18 92 Nasal Cannula 10/30/23 21:56 79 O2 Flow Rate 10/31/23 05:53 3 10/31/23 03:52 3.0 10/30/23 23:34 3.0 10/30/23 22:44 3 10/30/23 21:56 PG Care Time/CCT Total # of Minutes Spent Total Time Spent with Patient: Total time spent is greater than 50% in coordination of care (as documented) at patient's floor/unit and/or counseling patient: Coding Level of Care Code 63796 SUB INP/OBS CARE 2MIN Diagnoses COPD (chronic obstructive pulmonary disease) J44.9 Acute respiratory failure with hypoxia and hypercapnia J96.01; J96.02 Pleural effusion J90 Chronic hypoxic respiratory failure J96.11 Chronic heart failure with preserved ejection fraction (HFpEF) I50.32
[2023-10-31] MEDS: POT PHOSPHATE MONOBASIC W/ SOD TAB PO SCH (09:25)
--- NOTE | 2023-10-31 09:46 | XRay Report ---
SINGLE VIEW CHEST CLINICAL HISTORY: Follow-up congestive failure. FINDINGS: An AP, portable, upright chest radiograph is compared to study dated 10/28/2023. There is ev idence of previous cardiac valve surgery. The heart is enlarged noting atherosclerotic calcification of the thoracic area. There is pulmonary vascular congestion with interstitial edema. There are layer ing pleural effusions with bibasilar consolidation. No pneumothorax is seen. The skeletal structures are osteopenic. The bony thorax is grossly intact. IMPRESSION: 1. Cardiomegaly with evidence of congestive failure and pulmonary edema. This is similar to previous. 2. Layering pleural effusions with dependent consolidation. ACT 112: Negative or not required by law. Electronically signed by: Riley Hernandez M.D. 10/31/2023 9:44 AM
--- NOTE | 2023-10-31 12:12 | Hospitalist Progress Note ---
Date of Service October 31, 2023 Assessment & Plan (1) AMS (altered mental status): (2) Chronic hypoxic respiratory failure: (3) Acute respiratory failure with hypoxia and hypercapnia: (4) COPD (chronic obstructive pulmonary disease) with emphysema: (5) Chronic heart failure with preserved ejection fraction (HFpEF): (6) Coronary artery disease: (7) Paroxysmal atrial fibrillation: (8) S/P TAVR (transcatheter aortic valve replacement): (9) Left bundle branch block: (10) CKD (chronic kidney disease), stage III: (11) HTN (hypertension): (12) Dyslipidemia: Plan: Ms. 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 Admitting imaging suggestive of multifocal airspace opacities, bilateral pleural effusion, pulmonary edema, 2.1 cm left upper lobe opacity. Follow-up CT chest in 2 months recommended to document resolution. ABG at presentation with hypercapnia and hypoxia. Respiratory BioFire is negative. Continue home inhalers, Mucinex, incentive spirometer, flutter valve. Back to baseline oxygen requirements Patient received a dose of Lasix in the ED, Continued on daily IV lasix, held 10/31 10/19 MISAEL Continue with Rocephin and doxycycline started 10/28. EOT 11/02 Pulmonology consulted -BNP 674, recommending further diuresis Nephrology consulted -Limited diuresis 2/2 renal function, alkalosis, further recommendations for optimization Encouraged NIPPV, patient declines #Pleural Effusion Pulmonology following, no recommendations for thoracentesis at this time Attempt further volume optimization with diuresis #Frequent falls: Admitting pelvic x-ray, elbow x-ray, knee x-ray, neck CT and head CTA and head CT with no acute findings. PT/OT consult. #Paroxysmal A-fib #Calcific aortic stenosis, status post TAVR Hx of afib RVR issues with previous hospitalizations due to pneumonia Continue metoprolol 12.5 mg QID, amiodarone 200 mg daily Continue eliquis 5mg bid At home take furosemide MWF -IV lasix resumed, Nephrology for optimization Monitor and replete electrolytes. #Mild nonobstructive CAD per cardiac catheterization 01/27/2019 #Left bundle branch block noted post TAVR 05/27/2019 #Chronic heart failure with preserved ejection fraction (HFpEF): On Lasix 20 mg MWF at home Continue home medications #Metabolic Alkalosis, contraction 2/2 diuresis? #CKD III: Chronic, stable, slightly better than baseline currently with Cr of 1.19/BUN 17-likely secondary to trace volume overload, appears baseline Cr. is 1.2-1.4 Nephrology consulted to aid in optimization of diuresis 2/2 alkalosis DVT ppx: teds, scds FEN/GI: Heart healthy diet CODE: DNR/DNI Plan for rehab upon discharge Admission and Anticipated Discharge Date Admission Date: October 28, 2023 Subjective Patient evaluated at bedside. Reports back discomfort and arm pain 2/2 IV site/blood draw Endorses ongoing SOB, as if she cannot take a "deep breath in" Denies sputum at this time, chest pain, palpitations, or other issues Requests repositioning but not eager to sit in bedside chair or move Physical Exam Constitutional: WD/WN, vitals as above Respiratory: bilateral crackles, decreased bibasilar breath sounds Gastrointestinal (Abdomen): normal bowel sounds, soft, nontender, no hepatosplenomegaly Neurologic: PERRL, EOMI, accommodation nl, no face palsy, no dysarthria Results & Data Results & Data Vital Signs (Past 12 Hours) Vital Signs Temp Pulse Pulse Resp BP Pulse Ox O2 Del Method 10/31/23 11:52 36.3 C L 64 19 130/65 96 Nasal Cannula 10/31/23 10:03 84 18 93 Nasal Cannula 10/31/23 08:30 Nasal Cannula 10/31/23 05:59 72 10/31/23 05:53 71 17 95 Nasal Cannula 10/31/23 03:52 36.4 C L 70 18 143/77 H 93 Nasal Cannula O2 Flow Rate 10/31/23 11:52 3 10/31/23 10:03 3 10/31/23 08:30 3 10/31/23 05:59 10/31/23 05:53 3 10/31/23 03:52 3.0 Laboratory Results Short CBC 10/31/23 Range/Units 05:49 WBC 14.84 H (4.8-10.8) K/ul Hgb 9.0 L (12.0-16.0) g/dl Hct 30.5 L (37.0-47.0) % Plt Count 306 (130-400) K/uL BMP 10/31/23 05:49 Sodium 144 Potassium 4.1 Chloride 99 Carbon Dioxide 44 H* BUN 24 H Creatinine 1.35 H Glucose 106 H Calcium 8.7 Diagnostic Findings Chest X-Ray 10/31/23 07:00 SINGLE VIEW CHEST CLINICAL HISTORY: Follow-up congestive failure. FINDINGS: An AP, portable, upright chest radiograph is compared to study dated 10/28/2023. There is evidence of previous cardiac valve surgery. The heart is enlarged noting atherosclerotic calcification of the thoracic area. There is pulmonary vascular congestion with interstitial edema. There are layering pleural effusions with bibasilar consolidation. No pneumothorax is seen. The skeletal structures are osteopenic. The bony thorax is grossly intact. IMPRESSION: 1. Cardiomegaly with evidence of congestive failure and pulmonary edema. This is similar to previous. 2. Layering pleural effusions with dependent consolidation. ACT 112: Negative or not required by law. Electronically signed by: Riley Hernandez M.D. 10/31/2023 9:44 AM Medications Administered Home Medications Medication Instructions Recorded Confirmed Last Taken meclizine 25 mg chewable tablet 25 mg PO TID PRN Dizziness 12/31/18 10/28/23 08/04/23 19:00 vit C 250 mg-vit E 90 mg-zinc 40 1 tab PO AMHS 05/29/19 10/28/23 08/28/23 mg-copper 1 [id number] capsule (PreserVision AREDS-2) ondansetron 4 mg disintegrating 4 - 8 mg PO Q8H PRN Nausea 05/16/20 10/28/23 10/04/22 tablet aspirin 81 mg tablet,delayed 81 mg PO QAM 10/29/21 10/28/23 08/28/23 release ergocalciferol (vitamin D2) 1,250 50,000 unit PO WK 10/29/21 10/28/23 08/27/23 mcg (50,000 unit) capsule hydrocodone 5 mg-acetaminophen 325 1 tab PO Q8 PRN Pain 10/29/21 10/28/23 11/21/22 mg tablet zolpidem 5 mg tablet (Ambien) 5 mg PO HS PRN Sleep 10/29/21 10/28/23 08/04/23 19:00 fluoxetine 10 mg tablet 10 mg PO QAM 09/27/22 10/28/23 08/28/23 furosemide 20 mg tablet 20 mg PO 3XWK 09/27/22 10/28/23 08/27/23 fluticasone fur. 100 mcg-umeclid 1 inh inhalation QAM #60 ea 01/26/23 10/28/23 08/28/23 62.5 mcg-vilant 25 mcg inhalat.powder (Trelegy Ellipta) atorvastatin 10 mg tablet 10 mg PO HS #30 tabs 08/12/23 10/28/23 08/28/23 acetaminophen 325 mg tablet 975 mg PO Q8H 08/28/23 10/28/23 08/28/23 (Tylenol) amoxicillin 500 mg capsule 2,000 mg PO DIRECTED PRN 1 HR 08/28/23 10/28/23 Unknown PRIOR TO DENTAL PROCEDURES guaifenesin 600 mg tablet, 600 mg PO AMHS 08/28/23 10/28/23 08/28/23 extended release 12 hr (Mucinex) ipratropium 20 mcg-albuterol 100 1 puff inhalation QID PRN 08/28/23 10/28/23 Unknown mcg/actuation mist for inhalation NEEDED PER [facility] albuterol sulfate 90 mcg/actuation 2 inh inhalation Q6H PRN shortness 08/29/23 10/28/23 Unknown aerosol inhaler (Ventolin HFA) of breath or wheezing amiodarone 200 mg tablet 200 mg PO QAM 08/29/23 10/28/23 08/28/23 Oxygen Home #1 ea 09/24/23 10/28/23 Unknown amlodipine 5 mg tablet 5 mg PO QAM 10/28/23 10/28/23 Unknown apixaban 5 mg tablet (Eliquis) 5 mg PO AMHS 10/28/23 10/28/23 Unknown metoprolol succinate 25 mg 12.5 mg PO AMHS 10/28/23 10/28/23 Unknown tablet,extended release 24 hr mirtazapine 15 mg tablet 15 mg PO HS 10/28/23 10/28/23 Unknown omeprazole 20 mg capsule,delayed 20 mg PO AMHS 10/28/23 10/28/23 Unknown release pantoprazole 20 mg tablet,delayed 20 mg PO AMPM 10/28/23 10/28/23 Unknown release Active Medications Generic Name Dose Route Start Last Admin Trade Name Freq PRN Reason Stop Dose Admin Acetaminophen 975 mg 10/28/23 19:13 10/31/23 08:14 Acetaminophen 325 Mg Tab PO 11/27/23 19:12 975 mg Q8H TONG Administration Albuterol 3 ml 10/28/23 19:13 10/31/23 10:02 Albut/Ipratrop 3mg/0.5mg Neb 3 Ml Vial NEB 11/27/23 19:12 3 ml Q4R TONG Administration Protocol Amiodarone HCl 200 mg 10/29/23 09:00 10/31/23 08:18 Amiodarone 200 Mg Tab PO 11/28/23 08:59 200 mg QAM TONG Administration Amlodipine Besylate 5 mg 10/29/23 09:00 10/31/23 08:18 Amlodipine Besylate 5 Mg Tab PO 11/28/23 08:59 5 mg QAM TONG Administration Apixaban 5 mg 10/28/23 21:00 10/31/23 08:18 Apixaban 5 Mg Tablet PO 11/27/23 20:59 5 mg AMHS TONG Administration Aspirin 81 mg 10/29/23 09:00 10/31/23 08:17 Aspirin 81 Mg Ectab PO 11/28/23 08:59 81 mg QAM TONG Administration Atorvastatin Calcium 10 mg 10/28/23 21:00 10/30/23 21:07 Atorvastatin 10 Mg Tab PO 11/27/23 20:59 10 mg HS TONG Administration Benzonatate 100 mg 10/28/23 21:00 10/31/23 08:18 Benzonatate 100 Mg Capsule PO 11/27/23 20:59 100 mg TID TONG Administration Ergocalciferol 1,250 mcg 10/29/23 09:00 10/29/23 08:23 Ergocalciferol 1250 Mcg (50,000 Units) Cap PO 11/28/23 08:59 1,250 mcg Mo@0900 TONG Administration Fluoxetine HCl 10 mg 10/29/23 09:00 10/31/23 08:17 Fluoxetine Hcl 10 Mg Cap PO 11/28/23 08:59 10 mg QAM TONG Administration Fluticasone Furoate 1 puffs 10/29/23 09:00 10/31/23 09:25 Fluticasone Furoate 100mcg 14 Puffs/Inhaler INH 11/28/23 08:59 1 puffs DAILY TONG Administration Furosemide 20 mg 10/30/23 10:30 10/30/23 11:43 Furosemide Inj 20 Mg/2 Ml Vial IV 11/29/23 10:29 20 mg DAILY TONG Administration Guaifenesin/Dextromethorphan 10 ml 10/29/23 14:00 10/31/23 08:15 Guaifenesin/Dextrom Syrup 200mg/20mg 10ml Udc PO 11/28/23 13:59 10 ml Q6H TONG Administration Ceftriaxone Sodium 1,000 mg/ 50 mls @ 100 mls/hr 10/29/23 16:00 10/30/23 16:06 Dextrose IV 11/04/23 15:59 Infused Q24H TONG Infusion Protocol Doxycycline Hyclate 100 mg/ 100 mls @ 50 mls/hr 10/29/23 06:00 10/31/23 08:26 Dextrose IV 11/05/23 05:59 Infused Q12H TONG Infusion Meclizine HCl 25 mg 10/28/23 19:43 10/29/23 08:26 Meclizine 12.5 Mg Tab PO 11/27/23 19:42 25 mg TID PRN Administration Dizziness Melatonin 3 mg 10/30/23 22:28 10/30/23 23:23 Melatonin 3 Mg Tab PO 11/29/23 22:27 3 mg HS PRN Administration Sleep Metoprolol Succinate 12.5 mg 10/28/23 21:00 10/31/23 08:16 Metoprolol Succ 25mg Ext Rel Tab PO 11/27/23 20:59 12.5 mg AMHS TONG Administration Mirtazapine 15 mg 10/28/23 21:00 10/30/23 21:07 Mirtazapine Tab 15 Mg Tab PO 11/27/23 20:59 15 mg HS TONG Administration Multivitamins/Minerals 1 tab 10/28/23 21:00 10/31/23 08:17 Cerovite Adv Formula Tab PO 11/27/23 20:59 1 tab AMHS TONG Administration Pantoprazole Sodium 40 mg 10/28/23 21:00 10/31/23 08:17 Pantoprazole 40 Mg Tab PO 11/27/23 20:59 40 mg AMHS TONG Administration Potassium Phosphate 1 tab 10/31/23 09:00 10/31/23 09:25 Pot Phosphate Monobasic W/ Sod Tab PO 11/30/23 08:59 1 tab QID TONG Administration Umeclidinium/Vilanterol 1 puffs 10/29/23 09:00 10/31/23 09:26 Umeclidinium/Vilanterol 62.5/25mcg 7 Puffs/Inhaler INH 11/28/23 08:59 1 puffs DAILY TONG Administration Zolpidem Tartrate 5 mg 10/28/23 19:13 10/29/23 20:13 Zolpidem Tartrate 5 Mg Tab PO 11/27/23 19:12 5 mg HS PRN Administration Sleep (6) Coronary artery disease Coronary Disease-Associated Artery/Lesion type: [place] artery [place] vs. transplanted heart: [place] heart Associated angina: without angina Qualified Code(s): I25.10 - Atherosclerotic heart disease of [place] coronary artery without angina pectoris
[2023-10-31] MEDS: CALCIUM CARBONATE 500 MG CHEWABLE TAB PO PRN (12:49)
[2023-10-31] MEDS: HYDROCODONE/ACETAMOPHEN 5/325MG TAB PO PRN (18:18)
[2023-11-01 07:15] LABS: Hematocrit (blood only) 30.6 % (37.0-47.0); Mean Corpuscular Hemoglobin 29.9 pg (25.0-34.0); Mean Corpuscular Hgb Conc 29.4 g/dL (32.0-36.0); Mean Corpuscular Volume 101.7 fL (80.0-100.0); Mean Platelet Volume 10.6 fL (9.4-12.4); Platelet Count 292 K/uL (130-400); RDW Coefficient of Variation 15.5 % (11.5-14.5); Red Blood Count 3.01 M/uL (4.20-5.40); White Blood Count 12.22 K/ul (4.8-10.8)
[2023-11-01 07:56] LABS: Ferritin 261.6 ng/ml (8-388)
[2023-11-01 07:59] LABS: Anion Gap 6 (3-11); BUN Creatinine Ratio 18.3 (10-20); Blood Urea Nitrogen 21 mg/dl (6-23); Calcium 8.5 mg/dl (8.6-10.3); Carbon Dioxide 37 mmol/L (21-32); Chloride 99 mmol/L (98-107); Creatinine Clr Calc Pharmacy 29.7 ml/min; Est GFR (African American) 49.5 ml/min; Est GFR (Non-African American) 42.7 ml/min; Glucose 124 mg/dl (70-99(Fasting)); Magnesium 2.2 mg/dl (1.7-2.4); Phosphorus 4.4 mg/dl (2.5-4.9); Potassium 4.1 mmol/L (3.5-5.1); Sodium 142 mmol/L (136-145); Unsaturated Iron Binding Cap 98 mcg/dl (155-355)
[2023-11-01 08:02] LABS: Folate (Folic Acid),Ser orPlas 8.11 ng/ml (>5.38)
--- NOTE | 2023-11-01 08:35 | Pulmonology Progress Note ---
Date of Service November 01, 2023 Assessment & Plan (1) COPD (chronic obstructive pulmonary disease): (2) Acute respiratory failure with hypoxia and hypercapnia: (3) Pleural effusion: (4) Chronic hypoxic respiratory failure: (5) Chronic heart failure with preserved ejection fraction (HFpEF): Plan Chest x-ray 10/28/2023 personally reviewed: Portable film, good inspiratory effort, blunting of bilateral costophrenic angles, increased cardiac silhouette, increased pulmonary vascular markings 2D echo 08/06/2023: EF 55%, grade 1 diastolic dysfunction, moderate concentric LVH, RV not well-visualized -- Acute on chronic hypoxic respiratory failure Likely secondary to HFpEF with bilateral pleural effusion Respiratory bio fire negative for everything BNP 674, procalcitonin negative --Bilateral pleural effusion Secondary to HFpEF Continue with diuretics to keep the patient negative balance BiPAP nightly and as needed shortness of breath -- 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 Khan Procalcitonin negative Plan: In/out (Total): -1780 mL Creatinine improved today as did serum bicarb. Would benefit from an additional dose of Lasix. Patient has refused BiPAP. While patient would benefit from PAP in the setting of end stage COPD, patient would benefit, but this is certainly her decision to make at this time. Improved metabolic alkalosis. With ongoing dyspnea and persistent effusion, patient would likely benefit from thoracentesis. Continue to hold Eliquis in anticipation for thoracentesis tomorrow (11/02). Will perform CXR tomorrow AM and assess effusion and proceed if needed. Patient verbally consents to thoracentesis if needed. Please note the above document was generated using voice recognition software. It may contain grammatical, syntax or spelling errors.Any formal questions or concerns about the content, text or information contained within the body of this dictation should be directly addressed to the provider for clarification. Admission and Anticipated Discharge Date Admission Date: October 28, 2023 Supervising Physician Co-Signing Physician Notes I saw and evaluated the patient with Finesse Arteaga PA-C, and agree with findings and plan as documented in the note. Patient seen and examined at bedside. No acute distress. No adverse events overnight Was saturating 88% on 3 L. She still stated that she is having difficulty breathing. Denies any chest pain. No nausea or vomiting Appetite is fair Constitutional: No acute distress HEENT: EOMI, PERRLA, hard to hear, positive JVD, hirsutism Respiratory system: Decreased air entry bilaterally, no wheeze, no rhonchi, positive crackles appreciated bilaterally CVS: S1-S2 positive, positive 3 out of 6 systolic murmur appreciated best at aorta Abdomen: Soft, nontender, nondistended, positive bowel sounds x4 Extremities: +2 pulses bilaterally radialis/ dorsalis pedis, no cyanosis, +2 p itting edema bilateral lower extremity Neuro: Awake alert oriented x3 Psych: Normal mood and affect G/U: Positive Davis Plan: - 2.5 L since coming to the hospital. Given the persistence of pleural effusion even after 3 days of diuresis. I think it is reasonable to pursue thoracentesis tomorrow which will be 48 hours since stopping apixaban Patient is verbally agreeable to it. Case was discussed with IR Case was discussed with RN at bedside Please note the above document was generated using voice recognition software. It may contain grammatical, syntax or spelling errors.Any formal questions or concerns about the content, text or information contained within the body of this dictation should be directly addressed to the provider for clarification. Subjective Patient seen and evaluated at bedside. She is complaining of "pain all over." She reports dyspnea which is positional. She denies complaints of cough, hemoptysis, chest pain, or palpitations. Review of Systems Review of Systems: Unchanged from admission. Physical Exam Physical Exam: VITAL SIGNS - Vital signs and nursing notes were reviewed. GENERAL - 88-year-old male appearing her stated age who is in no acute distress. Hard of hearing. Communicates well with provider and answers questions appropriately. LUNGS - Kyphotic appearing. Auscultation reveals bibasilar rales without wheezes. CARDIAC - RRR with S1/S2. No murmur, rubs, or gallops appreciated. EXTREMITIES - Nail clubbing not present. No peripheral cyanosis. No pretibial edema present. +3/5 radial palpated throughout. PSYCH - A&Ox3 and cooperates fully with examiner. Pt is very pleasant and interacts well with examiner. Skin: no rashes, warm and dry Lymphatic: no cervical or axillary lymphadenopathy Results & Data Results & Data Vital Signs (Past 12 Hours) Vital Signs Temp Pulse Pulse Resp BP BP Pulse Ox 11/01/23 07:35 36.4 C L 88 18 120/73 97 11/01/23 06:23 70 18 95 11/01/23 05:59 68 11/01/23 03:03 36.4 C L 69 18 160/76 H 96 10/31/23 22:54 36.4 C L 69 22 145/65 H 92 10/31/23 22:35 67 O2 Del Method O2 Flow Rate 11/01/23 07:35 Nasal Cannula 4 11/01/23 06:23 Nasal Cannula 2 11/01/23 05:59 11/01/23 03:03 Nasal Cannula 3 10/31/23 22:54 Nasal Cannula 3 10/31/23 22:35 PG Care Time/CCT Total # of Minutes Spent Total Time Spent with Patient: Total time spent is greater than 50% in coordination of care (as documented) at patient's floor/unit and/or counseling patient: Coding Level of Care Code 64786 SUB INP/OBS CARE 2MIN Diagnoses COPD (chronic obstructive pulmonary disease) J44.9 Acute respiratory failure with hypoxia and hypercapnia J96.01; J96.02 Pleural effusion J90 Chronic hypoxic respiratory failure J96.11 Chronic heart failure with preserved ejection fraction (HFpEF) I50.32
--- NOTE | 2023-11-01 09:55 | Nephrology Consultation ---
Date of Consultation November 01, 2023 Assessment & Plan (1) Acute respiratory failure with hypoxia and hypercapnia: (2) Chronic hypoxic respiratory failure: (3) Acid-base disorder, mixed: She has Chornic Co2 retention from her underlying COPD/End stage Lung Dz. Her serum bicarb has to be high to maintain normal pH--as evidenced on Admission ABG from 10/28/2023-normal physiological compensation. No Alkalosis noted on the ABG nor the VBG In fact if her Serum bicarb is close to normal it is abnormal for he situation. Clear e/o fluid overload. Needs more Diuretics. Only made 800 ml urine on current lasix dose of 20 iv. will raise it to 30 q8hr to aim for more like 2-3 liters urine at least. for her totally normal ( and appropriate) to have serum bicarb to be in the low 40's. ABG or VBG can be done if felt needed by primary team. if she uses Bipap her serum bicarb will be lower. Some rise in creat is acceptable and fine with diuretics to keep her breathing as good as possible. Plan reviewed Pulm consult, H and P and course of events. 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 her ABG done 10/28 shows Co2 retention and compensatory elevated Bicarb with normal pH. She has been refusing Bipap. Had lasix 20 mg and only diuresed 800+ ml urine. CXR yesterday shows Pulm edema and Pl eff--similar to admission. ECHO shows Some diastolic Dysfunction but overall not too bad. ROS---Chronic SOb. 12 systems otherwise negative Exam: Constitutional: No acute distress HEENT: MM moist.Neck Supple. No JVD. Respiratory system: Decreased air entry bilaterally, no wheeze, no rhonchi, positive crackles appreciated bilaterally CVS: S1-S2 positive, positive 3 out of 6 systolic murmur appreciated best at aorta Abdomen: Soft, nontender, nondistended, positive bowel sounds x4 Extremities: 1+edema bilateral lower extremity Neuro: Awake alert oriented x3 Psych: Normal mood and affect G/U: Positive Davis Allergies Allergy/AdvReac Type Severity Reaction Status Date / Time Sulfa (Sulfonamide Allergy Severe SHORT OF Verified 08/28/23 23:49 Antibiotics) BREATH, ITCHING PER [facility] atenolol AdvReac Intermediate STOMACH Verified 08/28/23 23:49 PAIN PER [facility] lisinopril AdvReac Intermediate HYPERKALEMIA Verified 08/28/23 23:49 PER [facility] Home Medications Medication Instructions Recorded Confirmed Type meclizine 25 mg chewable tablet 25 mg PO TID PRN Dizziness 12/31/18 10/28/23 History vit C 250 mg-vit E 90 mg-zinc 40 1 tab PO AMHS 05/29/19 10/28/23 History mg-copper 1 [id number] capsule (PreserVision AREDS-2) ondansetron 4 mg disintegrating 4 - 8 mg PO Q8H PRN Nausea 05/16/20 10/28/23 History tablet aspirin 81 mg tablet,delayed 81 mg PO QAM 10/29/21 10/28/23 History release ergocalciferol (vitamin D2) 1,250 50,000 unit PO WK 10/29/21 10/28/23 History mcg (50,000 unit) capsule hydrocodone 5 mg-acetaminophen 325 1 tab PO Q8 PRN Pain 10/29/21 10/28/23 History mg tablet zolpidem 5 mg tablet (Ambien) 5 mg PO HS PRN Sleep 10/29/21 10/28/23 History fluoxetine 10 mg tablet 10 mg PO QAM 09/27/22 10/28/23 History furosemide 20 mg tablet 20 mg PO 3XWK 09/27/22 10/28/23 History fluticasone fur. 100 mcg-umeclid 1 inh inhalation QAM #60 ea 01/26/23 10/28/23 Rx 62.5 mcg-vilant 25 mcg inhalat.powder (Trelegy Ellipta) atorvastatin 10 mg tablet 10 mg PO HS #30 tabs 08/12/23 10/28/23 Rx acetaminophen 325 mg tablet 975 mg PO Q8H 08/28/23 10/28/23 History (Tylenol) amoxicillin 500 mg capsule 2,000 mg PO DIRECTED PRN 1 HR 08/28/23 10/28/23 History PRIOR TO DENTAL PROCEDURES guaifenesin 600 mg tablet, 600 mg PO AMHS 08/28/23 10/28/23 History extended release 12 hr (Mucinex) ipratropium 20 mcg-albuterol 100 1 puff inhalation QID PRN 08/28/23 10/28/23 History mcg/actuation mist for inhalation NEEDED PER [facility] albuterol sulfate 90 mcg/actuation 2 inh inhalation Q6H PRN shortness 08/29/23 10/28/23 History aerosol inhaler (Ventolin HFA) of breath or wheezing amiodarone 200 mg tablet 200 mg PO QAM 08/29/23 10/28/23 History Oxygen Home #1 ea 09/24/23 10/28/23 Rx amlodipine 5 mg tablet 5 mg PO QAM 10/28/23 10/28/23 History apixaban 5 mg tablet (Eliquis) 5 mg PO AMHS 10/28/23 10/28/23 History metoprolol succinate 25 mg 12.5 mg PO AMHS 10/28/23 10/28/23 History tablet,extended release 24 hr mirtazapine 15 mg tablet 15 mg PO HS 10/28/23 10/28/23 History omeprazole 20 mg capsule,delayed 20 mg PO AMHS 10/28/23 10/28/23 History release pantoprazole 20 mg tablet,delayed 20 mg PO AMPM 10/28/23 10/28/23 History release Patient History Medical History Febrile illness MISAEL (acute kidney injury) Fall Pneumonia Vertebral artery stenosis 75% stenosis of left vertebral artery per 05/30/2019 neck CTA Traumatic subarachnoid hemorrhage hx - 02/2021? Vertigo Coronary artery disease "diffuse minor CAD by cardiac catheterization 01/27/2019" per [facility] cardio note 06/29/2021 Hip dislocation, left currently in a brace Transient ischemic attack (TIA) possible per cardio note, 02/26/2021-negative CT and MRI imaging-on ASA per cardio with Plavix d/c due to subdural hematoma that subsequently resolved (cleared by neurosurgery [facility]) Macular degeneration Dyspnea Multiple pulmonary nodules determined by computed tomography of lung no further imaging needed given stability from 2019 per [facility] pulm note 07/08/2021 Left bundle branch block chronic per [facility] cardio note-noted post TAVR 05/27/2019 per [facility] cardio note HTN (hypertension) controlled, stable per pt Dyslipidemia CKD (chronic kidney disease), stage III Osteoporosis COPD (chronic obstructive pulmonary disease) follows with [facility] pulm, on Trelegy Carotid stenosis 50-69% TONNY 03/12/2019 duplex per [facility] cardio GERD (gastroesophageal reflux disease) controlled, stable per pt Surgical History History of colonoscopy S/P revision of total hip left hip History of cardiac catheterization 05/15/2019 TAVR. 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 Bearden at [facility], 02/26/2021-normal gradient S/P tonsillectomy and adenoidectomy History of cataract surgery RT/LEFT H/O hernia repair RT INGUINAL HERNIA History of hysterectomy Family History Other No family history of adverse response to anesthesia Stroke Social History Smoking Status: Former smoker Second Hand Exposure: Yes (son smokes); Do You Dip or Chew Tobacco: No; Hx Alcohol Use: No Hx Substance Use: No Preferred Language: Portuguese Communication Ability: Effective Diamond Selector Required: No Beliefs That Will Affect Care: None marital status: Current Living Situation: Spouse Feels Safe at Home: Yes Assistive Devices: Oxygen - Continuous Results & Data Vital Signs (Past 12 Hours) Vital Signs Temp Pulse Pulse Resp BP BP Pulse Ox 11/01/23 07:35 36.4 C L 88 18 120/73 97 11/01/23 06:23 70 18 95 11/01/23 05:59 68 11/01/23 03:03 36.4 C L 69 18 160/76 H 96 10/31/23 22:54 36.4 C L 69 22 145/65 H 92 10/31/23 22:35 67 O2 Del Method O2 Flow Rate 11/01/23 07:35 Nasal Cannula 4 11/01/23 06:23 Nasal Cannula 2 11/01/23 05:59 11/01/23 03:03 Nasal Cannula 3 10/31/23 22:54 Nasal Cannula 3 10/31/23 22:35 Laboratory Results reviewed Diagnostic Findings reviewed
[2023-11-01] MEDS: FUROSEMIDE INJ 20 MG/2 ML VIAL IV SCH (10:52)
[2023-11-01] MEDS ORDERED: ALBUT/IPRATROP 3MG/0.5MG NEB 3 ML VIAL NEB PRN (11:01)
--- NOTE | 2023-11-01 15:27 | Hospitalist Progress Note ---
Date of Service November 01, 2023 Assessment & Plan (1) AMS (altered mental status): (2) Chronic hypoxic respiratory failure: (3) Acute respiratory failure with hypoxia and hypercapnia: (4) COPD (chronic obstructive pulmonary disease) with emphysema: (5) Chronic heart failure with preserved ejection fraction (HFpEF): (6) Coronary artery disease: (7) Paroxysmal atrial fibrillation: (8) S/P TAVR (transcatheter aortic valve replacement): (9) Left bundle branch block: (10) CKD (chronic kidney disease), stage III: (11) HTN (hypertension): (12) Dyslipidemia: Plan: Ms. Harris is an 88-year-old female with PMH of chronic hypoxic respiratory failure, chronic diastolic CHF, COPD, remote tobacco use [smoking 2 packs a day x 60 years, quit 7 years ago], pulmonary nodules, pleural effusion, HTN, HLD, CAD, bilateral carotid artery stenosis, severe aortic stenosis, stenosis of left vertebral artery, status post TAVR, LBBB, macular degeneration of right eye, CKD stage III, GERD presented to the hospital 10/28 with new onset acute shortness of breath and cough [associated with yellow/green sputum] for the past 2 days [employer]. 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 Admitting imaging suggestive of multifocal airspace opacities, bilateral pleural effusion, pulmonary edema, 2.1 cm left upper lobe opacity. Follow-up CT chest in 2 months recommended to document resolution. ABG at presentation with hypercapnia and hypoxia. Respiratory BioFire is negative. Continue home inhalers, Mucinex, incentive spirometer, flutter valve. Back to baseline oxygen requirements Patient received a dose of Lasix in the ED, nephrology aiding in diuersis efforts--lasix q8h IV Continue with Rocephin and doxycycline started 10/28. EOT 11/02 Pulmonology consulted -BNP 674, recommending further diuresis Nephrology consulted -degree of cr increased acceptable for fluid removal, IV 30mg lasix BID -Follow BMP, mag, phos, replace lytes prn Encouraged NIPPV, patient declines #Pleural Effusion Pulmonology following, no recommendations for thoracentesis at this time Attempt further volume optimization with diuresis CXR in am, possible thoracentesis in am 2/ ongoing pleuritic/positional pain from effusion #Frequent falls: Admitting pelvic x-ray, elbow x-ray, knee x-ray, neck CT and head CTA and head CT with no acute findings. PT/OT consult. #Paroxysmal A-fib #Calcific aortic stenosis, status post TAVR Hx of afib RVR issues with previous hospitalizations due to pneumonia Continue metoprolol 12.5 mg QID, amiodarone 200 mg daily Hold eliquis 5mg bid At home take furosemide MWF -IV lasix resumed, Nephrology for optimization--IV lasix q8h Monitor and replete electrolytes. #Mild nonobstructive CAD per cardiac catheterization 01/27/2019 #Left bundle branch block noted post TAVR 05/27/2019 #Chronic heart failure with preserved ejection fraction (HFpEF): On Lasix 20 mg MWF at home Transitioned to IV lasix q8h per nephrology #CKD III: Chronic, stable, slightly better than baseline currently with Cr of 1.19/BUN 17-likely secondary to trace volume overload, appears baseline Cr. is 1.2-1.4 Nephrology consulted to aid in optimization of diuresis -Reviewed recommendations, increased IV lasix to 30mg q 8h for goal of 2-3L -Declines BPAP use DVT ppx: teds, scds FEN/GI: Heart healthy diet CODE: DNR/DNI Plan for rehab upon discharge Admission and Anticipated Discharge Date Admission Date: October 28, 2023 Subjective Reports discomfort with position changes, still some SOB, but mild improvement Denies any new concerns, notes frustration overall On 3 L Nc Physical Exam Constitutional: WD/WN, vitals as above Respiratory: decreased basilar breath sounds with scattered crackles Cardiovascular: RRR, no murmur, no edema Gastrointestinal (Abdomen): normal bowel sounds, soft, nontender, no hepatosplenomegaly Results & Data Results & Data Vital Signs (Past 12 Hours) Vital Signs Temp Pulse Pulse Resp BP BP Pulse Ox 11/01/23 15:16 36.7 C 65 21 120/56 L 88 L 11/01/23 11:56 36.7 C 70 19 129/63 90 11/01/23 08:40 11/01/23 07:35 36.4 C L 88 18 120/73 97 11/01/23 06:23 70 18 95 11/01/23 05:59 68 O2 Del Method O2 Flow Rate 11/01/23 15:16 Nasal Cannula 11/01/23 11:56 Nasal Cannula 11/01/23 08:40 Nasal Cannula 3 11/01/23 07:35 Nasal Cannula 4 11/01/23 06:23 Nasal Cannula 2 11/01/23 05:59 Laboratory Results Short CBC 11/01/23 Range/Units 06:15 WBC 12.22 H (4.8-10.8) K/ul Hgb 9.0 L (12.0-16.0) g/dl Hct 30.6 L (37.0-47.0) % Plt Count 292 (130-400) K/uL BMP 11/01/23 06:15 Sodium 142 Potassium 4.1 Chloride 99 Carbon Dioxide 37 H BUN 21 Creatinine 1.15 Glucose 124 H Calcium 8.5 L Medications Administered Home Medications Medication Instructions Recorded Confirmed Last Taken meclizine 25 mg chewable tablet 25 mg PO TID PRN Dizziness 12/31/18 10/28/23 08/04/23 19:00 vit C 250 mg-vit E 90 mg-zinc 40 1 tab PO AMHS 05/29/19 10/28/23 08/28/23 mg-copper 1 [id number] capsule (PreserVision AREDS-2) ondansetron 4 mg disintegrating 4 - 8 mg PO Q8H PRN Nausea 05/16/20 10/28/23 10/04/22 tablet aspirin 81 mg tablet,delayed 81 mg PO QAM 10/29/21 10/28/23 08/28/23 release ergocalciferol (vitamin D2) 1,250 50,000 unit PO WK 10/29/21 10/28/23 08/27/23 mcg (50,000 unit) capsule hydrocodone 5 mg-acetaminophen 325 1 tab PO Q8 PRN Pain 10/29/21 10/28/23 11/21/22 mg tablet zolpidem 5 mg tablet (Ambien) 5 mg PO HS PRN Sleep 10/29/21 10/28/23 08/04/23 19:00 fluoxetine 10 mg tablet 10 mg PO QAM 09/27/22 10/28/23 08/28/23 furosemide 20 mg tablet 20 mg PO 3XWK 09/27/22 10/28/23 08/27/23 fluticasone fur. 100 mcg-umeclid 1 inh inhalation QAM #60 ea 01/26/23 10/28/23 08/28/23 62.5 mcg-vilant 25 mcg inhalat.powder (Trelegy Ellipta) atorvastatin 10 mg tablet 10 mg PO HS #30 tabs 08/12/23 10/28/23 08/28/23 acetaminophen 325 mg tablet 975 mg PO Q8H 08/28/23 10/28/23 08/28/23 (Tylenol) amoxicillin 500 mg capsule 2,000 mg PO DIRECTED PRN 1 HR 08/28/23 10/28/23 Unknown PRIOR TO DENTAL PROCEDURES guaifenesin 600 mg tablet, 600 mg PO AMHS 08/28/23 10/28/23 08/28/23 extended release 12 hr (Mucinex) ipratropium 20 mcg-albuterol 100 1 puff inhalation QID PRN 08/28/23 10/28/23 Unknown mcg/actuation mist for inhalation NEEDED PER [facility] albuterol sulfate 90 mcg/actuation 2 inh inhalation Q6H PRN shortness 08/29/23 10/28/23 Unknown aerosol inhaler (Ventolin HFA) of breath or wheezing amiodarone 200 mg tablet 200 mg PO QAM 08/29/23 10/28/23 08/28/23 Oxygen Home #1 ea 09/24/23 10/28/23 Unknown amlodipine 5 mg tablet 5 mg PO QAM 10/28/23 10/28/23 Unknown apixaban 5 mg tablet (Eliquis) 5 mg PO AMHS 10/28/23 10/28/23 Unknown metoprolol succinate 25 mg 12.5 mg PO AMHS 10/28/23 10/28/23 Unknown tablet,extended release 24 hr mirtazapine 15 mg tablet 15 mg PO HS 10/28/23 10/28/23 Unknown omeprazole 20 mg capsule,delayed 20 mg PO AMHS 10/28/23 10/28/23 Unknown release pantoprazole 20 mg tablet,delayed 20 mg PO AMPM 10/28/23 10/28/23 Unknown release Active Medications Generic Name Dose Route Start Last Admin Trade Name Freq PRN Reason Stop Dose Admin Acetaminophen 975 mg 10/28/23 19:13 11/01/23 08:31 Acetaminophen 325 Mg Tab PO 11/27/23 19:12 975 mg Q8H TONG Administration Hydrocodone Bitart/Acetaminophen 1 tab 10/28/23 19:13 11/01/23 12:23 Hydrocodone/Acetamophen 5/325mg Tab PO 11/11/23 19:12 1 tab Q8 PRN Administration Pain Amiodarone HCl 200 mg 10/29/23 09:00 11/01/23 08:25 Amiodarone 200 Mg Tab PO 11/28/23 08:59 200 mg QAM TONG Administration Amlodipine Besylate 5 mg 10/29/23 09:00 11/01/23 08:25 Amlodipine Besylate 5 Mg Tab PO 11/28/23 08:59 5 mg QAM TONG Administration Apixaban 5 mg 10/28/23 21:00 10/31/23 08:18 Apixaban 5 Mg Tablet PO 11/27/23 20:59 5 mg AMHS TONG Administration Aspirin 81 mg 10/29/23 09:00 11/01/23 08:25 Aspirin 81 Mg Ectab PO 11/28/23 08:59 81 mg QAM TONG Administration Atorvastatin Calcium 10 mg 10/28/23 21:00 10/31/23 21:09 Atorvastatin 10 Mg Tab PO 11/27/23 20:59 10 mg HS TONG Administration Benzonatate 100 mg 10/28/23 21:00 11/01/23 14:43 Benzonatate 100 Mg Capsule PO 11/27/23 20:59 100 mg TID TONG Administration Calcium Carbonate 500 mg 10/31/23 12:08 10/31/23 12:49 Calcium Carbonate 500 Mg Chewable Tab PO 11/30/23 12:07 500 mg Q4H PRN Administration Indigestion Ergocalciferol 1,250 mcg 10/29/23 09:00 10/29/23 08:23 Ergocalciferol 1250 Mcg (50,000 Units) Cap PO 11/28/23 08:59 1,250 mcg Mo@0900 TONG Administration Fluoxetine HCl 10 mg 10/29/23 09:00 11/01/23 08:25 Fluoxetine Hcl 10 Mg Cap PO 11/28/23 08:59 10 mg QAM TONG Administration Fluticasone Furoate 1 puffs 10/29/23 09:00 11/01/23 08:26 Fluticasone Furoate 100mcg 14 Puffs/Inhaler INH 11/28/23 08:59 1 puffs DAILY TONG Administration Furosemide 30 mg 11/01/23 10:00 11/01/23 10:52 Furosemide Inj 20 Mg/2 Ml Vial IV 12/01/23 09:59 30 mg Q8H TONG Administration Guaifenesin/Dextromethorphan 10 ml 10/29/23 14:00 11/01/23 14:44 Guaifenesin/Dextrom Syrup 200mg/20mg 10ml Udc PO 11/28/23 13:59 10 ml Q6H TONG Administration Ceftriaxone Sodium 1,000 mg/ 50 mls @ 100 mls/hr 10/29/23 16:00 10/31/23 15:52 Dextrose IV 11/04/23 15:59 Infused Q24H TONG Infusion Protocol Doxycycline Hyclate 100 mg/ 100 mls @ 50 mls/hr 10/29/23 06:00 11/01/23 08:32 Dextrose IV 11/05/23 05:59 Infused Q12H TONG Infusion Meclizine HCl 25 mg 10/28/23 19:43 10/29/23 08:26 Meclizine 12.5 Mg Tab PO 11/27/23 19:42 25 mg TID PRN Administration Dizziness Melatonin 3 mg 10/30/23 22:28 10/31/23 21:09 Melatonin 3 Mg Tab PO 11/29/23 22:27 3 mg HS PRN Administration Sleep Metoprolol Succinate 12.5 mg 10/28/23 21:00 11/01/23 08:26 Metoprolol Succ 25mg Ext Rel Tab PO 11/27/23 20:59 12.5 mg AMHS TONG Administration Mirtazapine 15 mg 10/28/23 21:00 10/31/23 21:09 Mirtazapine Tab 15 Mg Tab PO 11/27/23 20:59 15 mg HS TONG Administration Multivitamins/Minerals 1 tab 10/28/23 21:00 11/01/23 08:27 Cerovite Adv Formula Tab PO 11/27/23 20:59 1 tab AMHS TONG Administration Pantoprazole Sodium 40 mg 10/28/23 21:00 11/01/23 08:27 Pantoprazole 40 Mg Tab PO 11/27/23 20:59 40 mg AMHS TONG Administration Potassium Phosphate 1 tab 10/31/23 09:00 11/01/23 12:24 Pot Phosphate Monobasic W/ Sod Tab PO 11/30/23 08:59 1 tab QID TONG Administration Umeclidinium/Vilanterol 1 puffs 10/29/23 09:00 11/01/23 08:27 Umeclidinium/Vilanterol 62.5/25mcg 7 Puffs/Inhaler INH 11/28/23 08:59 1 puffs DAILY TONG Administration Zolpidem Tartrate 5 mg 10/28/23 19:13 10/29/23 20:13 Zolpidem Tartrate 5 Mg Tab PO 11/27/23 19:12 5 mg HS PRN Administration Sleep (6) Coronary artery disease Coronary Disease-Associated Artery/Lesion type: douglas artery [place] vs. transplanted heart: douglas heart Associated angina: without angina Qualified Code(s): I25.10 - Atherosclerotic heart disease of douglas coronary artery without angina pectoris
[2023-11-01 17:35] LABS: BUN Creatinine Ratio 16.8 (10-20); Creatinine Clr Calc Pharmacy 27.4 ml/min; Est GFR (African American) 44.8 ml/min; Est GFR (Non-African American) 38.6 ml/min
[2023-11-02 06:44] LABS: Hematocrit (blood only) 28.8 % (37.0-47.0); Hemoglobin 8.7 g/dl (12.0-16.0); Mean Corpuscular Hgb Conc 30.2 g/dL (32.0-36.0); Mean Corpuscular Volume 99.3 fL (80.0-100.0); Mean Platelet Volume 10.9 fL (9.4-12.4); Platelet Count 258 K/uL (130-400); RDW Coefficient of Variation 15.5 % (11.5-14.5); RDW Standard Deviation 55.9 fL (36.4-46.3); White Blood Count 11.27 K/ul (4.8-10.8)
[2023-11-02 07:50] LABS: BUN Creatinine Ratio 15.8 (10-20); Calcium 7.7 mg/dl (8.6-10.3); Creatinine Clr Calc Pharmacy 25.7 ml/min; Est GFR (African American) 41.6 ml/min; Est GFR (Non-African American) 35.9 ml/min; Phosphorus 5.6 mg/dl (2.5-4.9); Potassium 3.7 mmol/L (3.5-5.1)
[2023-11-02 08:39] LABS: INR 1.1 (0.9-1.1); Prothrombin Time 12.3 Seconds (9.0-12.0)
--- NOTE | 2023-11-02 09:11 | Nephrology Progress Note ---
Date of Service November 02, 2023 Assessment & Plan Admission and Anticipated Discharge Date Admission Date: October 28, 2023 Subjective Assessment & Plan (1) Acute respiratory failure with hypoxia and hypercapnia: (2) Chronic hypoxic respiratory failure: (3) Acid-base disorder, mixed: She has Chronic Co2 retention from her underlying COPD/End stage Lung Dz. Her serum bicarb has to be high to maintain normal pH--as evidenced on Admission ABG from 10/28/2023-normal physiological compensation. No Alkalosis noted on the ABG nor the VBG In fact if her Serum bicarb is close to normal it is abnormal for her situation. Clear e/o fluid overload. Needs more Diuretics. Lower Lasix iv 30 q12hr to aim for more like 2-3 liters urine at least for one more day and then we can taper it down. for her totally normal ( and appropriate) to have serum bicarb to be in the low 40's. if she uses Bipap her serum bicarb will be lower. Some rise in creat is acceptable and fine with diuretics to keep her breathing as good as possible. Would do VBG tomorrow for better Acid-base assessment Bicarb 44 and Creat up a tiny bit. S---Feels fine. No new issues. made 2500 ml urine with higher dose of lasix Exam: Constitutional: No acute distress HEENT: MM moist.Neck Supple. No JVD. Respiratory system: Decreased air entry bilaterally, no wheeze, no rhonchi, positive crackles appreciated bilaterally CVS: S1-S2 positive, positive 3 out of 6 systolic murmur appreciated best at aorta Abdomen: Soft, nontender, nondistended, positive bowel sounds x4 Extremities: trace edema bilateral lower extremity Neuro: Awake alert oriented x3 Psych: Normal mood and affect G/U: Positive Davis Results & Data Vital Signs (Past 12 Hours) Vital Signs Temp Pulse Pulse Resp BP Pulse Ox O2 Del Method 11/02/23 07:56 36.7 C 74 18 138/68 96 Nasal Cannula 11/02/23 07:19 65 11/02/23 03:22 36.7 C 60 20 145/71 H 94 Nasal Cannula 11/01/23 23:14 36.8 C 69 20 131/68 91 Nasal Cannula 11/01/23 22:00 67 O2 Flow Rate 11/02/23 07:56 3 11/02/23 07:19 11/02/23 03:22 3 11/01/23 23:14 3 11/01/23 22:00
--- NOTE | 2023-11-02 10:22 | XRay Report ---
XR chest 1V not portable CLINICAL HISTORY: s/p rt thoracentesis with stat read COMPARISON STUDY: Chest radiograph performed earlier today. FINDINGS: There is no pneumothorax following right thoracentesis. Right pleural effusion has mildly d ecreased in size. Persistent left pleural effusion is noted. Pulmonary edema is similar to prior exam . Aortic valve prosthesis is in place. Cardiomediastinal silhouette is stable. IMPRESSION: 1. No pneumothorax following right thoracentesis. Decrease in size of the right pleural effusion. 2. Persistent pulmonary edema and a left pleural effusion. ACT 112: Negative or not required by law. Electronically signed by: Jamaal Phan M.D. 11/02/2023 10:20 AM
[2023-11-02] MEDS: DICLOFENAC SOD 1% GEL 100 GM TUBE EXT SCH (12:03)
--- NOTE | 2023-11-02 12:42 | Ultrasound Report ---
ULTRASOUND-GUIDED THORACENTESIS CLINICAL HISTORY: Pleural effusion COMPARISON STUDY: Chest x-ray dated 10/31/2023. PROCEDURE: Procedure and risks were explained. Informed consent was obtained. A final timeout was com pleted. The right posterior thorax was prepped and draped in sterile fashion. 1% lidocaine was utiliz ed for skin anesthesia. Utilizing ultrasound guidance, a 5 [place] safety centesis catheter was advanced into the right pleura l effusion. Ultrasound images were obtained. 650 mL of pleural fluid was removed and sent to the lab for analysis. The procedure was stopped secondary to complaints of pleuritic/mediastinal chest pain. The catheter was removed and Band-Aid applied. The patient tolerated the procedure. A chest x-ray lakshmi l be obtained and vital signs will be monitored on the floor. IMPRESSION: Right thoracentesis as above. Performed, dictated, and signed by Vamshi Lobato PA-C; to be co-signed by Dr. Riley Hernandez. Electronically signed by: Riley Hernandez M.D. 11/02/2023 12:53 PM
--- NOTE | 2023-11-02 12:52 | Pulmonology Progress Note ---
Date of Service November 02, 2023 Assessment & Plan (1) COPD (chronic obstructive pulmonary disease): (2) Acute respiratory failure with hypoxia and hypercapnia: (3) Pleural effusion: (4) Chronic hypoxic respiratory failure: (5) Chronic heart failure with preserved ejection fraction (HFpEF): Plan Chest x-ray 10/28/2023 personally reviewed: Portable film, good inspiratory effort, blunting of bilateral costophrenic angles, increased cardiac silhouette, increased pulmonary vascular markings 2D echo 08/06/2023: EF 55%, grade 1 diastolic dysfunction, moderate concentric LVH, RV not well-visualized -- Acute on chronic hypoxic respiratory failure Likely secondary to HFpEF with bilateral pleural effusion Respiratory bio fire negative for everything BNP 674, procalcitonin negative --Bilateral pleural effusion Secondary to HFpEF Continue with diuretics to keep the patient negative balance BiPAP nightly and as needed shortness of breath -- 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 Khan Procalcitonin negative Plan: In/out (Total): -1.2 L, urine output 1700 mL, -3.7 L since coming to the hospital Patient had a thoracentesis done on the right side today. 650 mL of fluid was removed, further was not removed as patient was complaining of pleuritic pain Okay to resume apixaban as of tonight Follow-up analysis of the pleural fluid. Continue with diuretics as she is diuresing well. No further recommendation from pulmonary perspective, will sign off Please call directly with any questions Please note the above document was generated using voice recognition software. It may contain grammatical, syntax or spelling errors.Any formal questions or concerns about the content, text or information contained within the body of this dictation should be directly addressed to the provider for clarification. Admission and Anticipated Discharge Date Admission Date: October 28, 2023 Subjective Patient seen and examined at bedside. No acute distress, no adverse events overnight She is s/p thoracentesis today with removal of 650 mL of fluid on the right side Denies any chest pain She said that she is feeling little bit better compared to yesterday. Breathing is improved No nausea vomiting Appetite is fair Was saturating 92% on 2 L nasal cannula. Review of Systems 2 Review of Systems: All systems reviewed & are unremarkable except as noted in Subjective Physical Exam 2 Physical Exam: Constitutional: No acute distress HEENT: EOMI, PERRLA, hard to hear, positive JVD Respiratory system: Decreased air entry bilaterally, no wheeze, no rhonchi, positive crackles appreciated bilaterally CVS: S1-S2 positive, positive 3 out of 6 systolic murmur appreciated best at aorta Abdomen: Soft, nontender, nondistended, positive bowel sounds x4 Extremities: +2 pulses bilaterally radialis/ dorsalis pedis, no cyanosis, +1 pitting edema bilateral lower extremity Neuro: Awake alert oriented x3 Psych: Normal mood and affect G/U: Positive Davis Skin: no rashes, warm and dry Lymphatic: no cervical or axillary lymphadenopathy Results & Data Results & Data Vital Signs (Past 12 Hours) Vital Signs Temp Pulse Pulse Resp BP BP Pulse Ox 11/02/23 11:05 36.6 C 72 18 100/56 L 100/59 L 97 11/02/23 10:50 36.8 C 66 18 125/69 96 11/02/23 10:35 36.7 C 70 18 114/63 94 11/02/23 10:20 36.8 C 62 17 115/69 91 11/02/23 07:56 36.7 C 74 18 138/68 96 11/02/23 07:19 65 11/02/23 03:22 36.7 C 60 20 145/71 H 94 O2 Del Method O2 Flow Rate 11/02/23 11:05 Nasal Cannula 3 11/02/23 10:50 Nasal Cannula 3 11/02/23 10:35 Nasal Cannula 3 11/02/23 10:20 Nasal Cannula 3 11/02/23 07:56 Nasal Cannula 3 11/02/23 07:19 11/02/23 03:22 Nasal Cannula 3 Laboratory Results 11/02/23 05:52 11/02/23 05:52 PG Care Time/CCT Total # of Minutes Spent Total Time Spent with Patient: Total time spent is greater than 50% in coordination of care (as documented) at patient's floor/unit and/or counseling patient: Coding Level of Care Code 66024 SUB INP/OBS CARE 2/35MIN Diagnoses COPD (chronic obstructive pulmonary disease) J44.9 Acute respiratory failure with hypoxia and hypercapnia J96.01; J96.02 Pleural effusion J90 Chronic hypoxic respiratory failure J96.11 Chronic heart failure with preserved ejection fraction (HFpEF) I50.32
--- NOTE | 2023-11-02 13:58 | XRay Report ---
SINGLE VIEW CHEST CLINICAL HISTORY: Follow-up congestive failure. FINDINGS: An AP, portable, upright chest radiograph is compared to study dated 10/31/2023. There is ev idence of previous cardiac valve surgery. The heart is enlarged noting atherosclerotic calcification of the thoracic aorta. There is pulmonary vascular congestion with interstitial edema. This is worsen ed as compared to previous. There are right larger than left pleural effusions with bibasilar consoli dation. No pneumothorax is seen. The skeletal structures are osteopenic. The bony thorax is grossly i ntact. IMPRESSION: 1. Cardiomegaly with evidence of congestive failure and pulmonary edema. This has worsened as compare d to the 10/31/2023 examination. 2. Right larger than left pleural effusions with dependent consolidation. ACT 112: Negative or not required by law. Electronically signed by: Riley Hernandez M.D. 11/02/2023 1:57 PM
[2023-11-02 13:59] LABS: Albumin Level 2.5 gm/dl (3.4-5.0); Bilirubin,Total 0.4 mg/dl (0.2-1.0); Total Protein 4.9 gm/dl (6.0-8.3)
--- NOTE | 2023-11-02 14:14 | Hospitalist Progress Note ---
Date of Service November 02, 2023 Assessment & Plan (1) AMS (altered mental status): (2) Chronic hypoxic respiratory failure: (3) Acute respiratory failure with hypoxia and hypercapnia: (4) COPD (chronic obstructive pulmonary disease) with emphysema: (5) Chronic heart failure with preserved ejection fraction (HFpEF): (6) Coronary artery disease: (7) Paroxysmal atrial fibrillation: (8) S/P TAVR (transcatheter aortic valve replacement): (9) Left bundle branch block: (10) CKD (chronic kidney disease), stage III: (11) HTN (hypertension): (12) Dyslipidemia: Plan: Ms. Harris is an 88-year-old female with PMH of chronic hypoxic respiratory failure, chronic diastolic CHF, COPD, remote tobacco use [smoking 2 packs a day x 60 years, quit 7 years ago], pulmonary nodules, pleural effusion, HTN, HLD, CAD, bilateral carotid artery stenosis, severe aortic stenosis, stenosis of left vertebral artery, status post TAVR, LBBB, macular degeneration of right eye, CKD stage III, GERD presented to the hospital 10/28 with new onset acute shortness of breath and cough [associated with yellow/green sputum] for the past 2 days prior to admission on 10/28. Marginally improving day by day, but pain in right costal area remained present. CXR still with notable effusion prompting thoracentesis this am. 650cc fluid removed--sent for cytology. Still undergoing IV diuresis. #Acute on chronic hypoxic/hypercapnia respiratory failure, multifactorial #Emphysema/COPD #Acute on chronic heart failure with preserved EF Chronic home oxygen of 2-3L Patient presenting with shortness of breath and cough with yellow sputum. Admitting imaging suggestive of multifocal airspace opacities, bilateral pleural effusion, pulmonary edema, 2.1 cm left upper lobe opacity. Follow-up CT chest in 2 months recommended to document resolution. ABG at presentation with hypercapnia and hypoxia. Respiratory BioFire is negative. Continue home inhalers, Mucinex, incentive spirometer, flutter valve. Back to baseline oxygen requirements Patient received a dose of Lasix in the ED, nephrology aiding in diuersis efforts--lasix q8h IV, reducing to q12h Continue with Rocephin and doxycycline started 10/28. EOT 11/02 Pulmonology consulted -BNP 674, recommending further diuresis Nephrology consulted -degree of cr increased acceptable for fluid removal; IV lasix q8h on 11/01, now to q 12 today -Follow BMP, mag, phos, replace lytes prn Encouraged NIPPV, patient declines #Pleural Effusion Pulmonology following, no recommendations for thoracentesis at this time Attempt further volume optimization with diuresis CXR in am, possible thoracentesis in am 2/2 ongoing pleuritic/positional pain from effusion #Frequent falls: Admitting pelvic x-ray, elbow x-ray, knee x-ray, neck CT and head CTA and head CT with no acute findings. PT/OT consult. #Paroxysmal A-fib #Calcific aortic stenosis, status post TAVR Hx of afib RVR issues with previous hospitalizations due to pneumonia Continue metoprolol 12.5 mg QID, amiodarone 200 mg daily Hold eliquis 5mg bid At home take furosemide MWF -IV lasix resumed, Nephrology for optimization--IV lasix q12h Monitor and replete electrolytes. #Mild nonobstructive CAD per cardiac catheterization 01/27/2019 #Left bundle branch block noted post TAVR 05/27/2019 #Chronic heart failure with preserved ejection fraction (HFpEF): On Lasix 20 mg MWF at home Transitioned to IV lasix q8h per nephrology #CKD III: Chronic, stable, slightly better than baseline currently with Cr of 1.19/BUN 17-likely secondary to trace volume overload, appears baseline Cr. is 1.2-1.4 Nephrology consulted to aid in optimization of diuresis -Reviewed recommendations, increased IV lasix to 30mg q12h for goal of 2-3L -Declines BPAP use Serum bicarb stable given other concurrent morbdities VBG in am DVT ppx: teds, scds FEN/GI: Heart healthy diet CODE: DNR/DNI Plan for rehab upon discharge Admission and Anticipated Discharge Date Admission Date: October 28, 2023 Subjective Evaluated at bedside Reports same positional pain, but generally better since day prior Denies any worsening of dysnea, pleuritic pain, or other acute issues UOP 2500cc thora -650cc Physical Exam Constitutional: WD/WN, vitals as above Respiratory: scattered crackles, decreased sounds RLL Cardiovascular: RRR, no murmur, no edema Gastrointestinal (Abdomen): normal bowel sounds, soft, nontender, no hepatosplenomegaly Results & Data Results & Data Vital Signs (Past 12 Hours) Vital Signs Temp Pulse Pulse Resp BP BP Pulse Ox 11/02/23 11:50 81 16 91 11/02/23 11:20 36.6 C 70 16 109/71 95 11/02/23 11:05 36.6 C 72 18 100/56 L 100/59 L 97 11/02/23 10:50 36.8 C 66 18 125/69 96 11/02/23 10:35 36.7 C 70 18 114/63 94 11/02/23 10:20 36.8 C 62 17 115/69 91 11/02/23 07:56 36.7 C 74 18 138/68 96 11/02/23 07:19 65 11/02/23 03:22 36.7 C 60 20 145/71 H 94 O2 Del Method O2 Flow Rate 11/02/23 11:50 Nasal Cannula 3 11/02/23 11:20 Nasal Cannula 3 11/02/23 11:05 Nasal Cannula 3 11/02/23 10:50 Nasal Cannula 3 11/02/23 10:35 Nasal Cannula 3 11/02/23 10:20 Nasal Cannula 3 11/02/23 07:56 Nasal Cannula 3 11/02/23 07:19 11/02/23 03:22 Nasal Cannula 3 Laboratory Results Short CBC 11/02/23 Range/Units 05:52 WBC 11.27 H (4.8-10.8) K/ul Hgb 8.7 L (12.0-16.0) g/dl Hct 28.8 L (37.0-47.0) % Plt Count 258 (130-400) K/uL BMP 11/01/23 11/02/23 15:51 05:52 Sodium 143 143 Potassium 4.0 3.7 Chloride 98 97 L Carbon Dioxide 42 H* 44 H* BUN 21 21 Creatinine 1.25 H 1.33 H Glucose 135 H 129 H Calcium 8.0 L 7.7 L Liver Function 11/02/23 Range/Units 05:52 Total Bilirubin 0.4 (0.2-1.0) mg/dl Albumin 2.5 L (3.4-5.0) gm/dl Medications Administered Home Medications Medication Instructions Recorded Confirmed Last Taken meclizine 25 mg chewable tablet 25 mg PO TID PRN Dizziness 12/31/18 10/28/23 08/04/23 19:00 vit C 250 mg-vit E 90 mg-zinc 40 1 tab PO AMHS 05/29/19 10/28/23 08/28/23 mg-copper 1 if-madbxk-cufief capsule (PreserVision AREDS-2) ondansetron 4 mg disintegrating 4 - 8 mg PO Q8H PRN Nausea 05/16/20 10/28/23 10/04/22 tablet aspirin 81 mg tablet,delayed 81 mg PO QAM 10/29/21 10/28/23 08/28/23 release ergocalciferol (vitamin D2) 1,250 50,000 unit PO WK 10/29/21 10/28/23 08/27/23 mcg (50,000 unit) capsule hydrocodone 5 mg-acetaminophen 325 1 tab PO Q8 PRN Pain 10/29/21 10/28/23 11/21/22 mg tablet zolpidem 5 mg tablet (Ambien) 5 mg PO HS PRN Sleep 10/29/21 10/28/23 08/04/23 19:00 fluoxetine 10 mg tablet 10 mg PO QAM 09/27/22 10/28/23 08/28/23 furosemide 20 mg tablet 20 mg PO 3XWK 09/27/22 10/28/23 08/27/23 fluticasone fur. 100 mcg-umeclid 1 inh inhalation QAM #60 ea 01/26/23 10/28/23 08/28/23 62.5 mcg-vilant 25 mcg inhalat.powder (Trelegy Ellipta) atorvastatin 10 mg tablet 10 mg PO HS #30 tabs 08/12/23 10/28/23 08/28/23 acetaminophen 325 mg tablet 975 mg PO Q8H 08/28/23 10/28/23 08/28/23 (Tylenol) amoxicillin 500 mg capsule 2,000 mg PO DIRECTED PRN 1 HR 08/28/23 10/28/23 Unknown PRIOR TO DENTAL PROCEDURES guaifenesin 600 mg tablet, 600 mg PO AMHS 08/28/23 10/28/23 08/28/23 extended release 12 hr (Mucinex) ipratropium 20 mcg-albuterol 100 1 puff inhalation QID PRN 08/28/23 10/28/23 Unknown mcg/actuation mist for inhalation NEEDED PER [facility] albuterol sulfate 90 mcg/actuation 2 inh inhalation Q6H PRN shortness 08/29/23 10/28/23 Unknown aerosol inhaler (Ventolin HFA) of breath or wheezing amiodarone 200 mg tablet 200 mg PO QAM 08/29/23 10/28/23 08/28/23 Oxygen Home [id number] #1 ea 09/24/23 10/28/23 Unknown amlodipine 5 mg tablet 5 mg PO QAM 10/28/23 10/28/23 Unknown apixaban 5 mg tablet (Eliquis) 5 mg PO AMHS 10/28/23 10/28/23 Unknown metoprolol succinate 25 mg 12.5 mg PO AMHS 10/28/23 10/28/23 Unknown tablet,extended release 24 hr mirtazapine 15 mg tablet 15 mg PO HS 10/28/23 10/28/23 Unknown omeprazole 20 mg capsule,delayed 20 mg PO AMHS 10/28/23 10/28/23 Unknown release pantoprazole 20 mg tablet,delayed 20 mg PO AMPM 10/28/23 10/28/23 Unknown release Active Medications Generic Name Dose Route Start Last Admin Trade Name Freq PRN Reason Stop Dose Admin Acetaminophen 975 mg 10/28/23 19:13 11/02/23 10:30 Acetaminophen 325 Mg Tab PO 11/27/23 19:12 975 mg Q8H TONG Administration Hydrocodone Bitart/Acetaminophen 1 tab 10/28/23 19:13 11/01/23 21:00 Hydrocodone/Acetamophen 5/325mg Tab PO 11/11/23 19:12 1 tab Q8 PRN Administration Pain Amiodarone HCl 200 mg 10/29/23 09:00 11/02/23 08:29 Amiodarone 200 Mg Tab PO 11/28/23 08:59 200 mg QAM TONG Administration Amlodipine Besylate 5 mg 10/29/23 09:00 11/02/23 08:28 Amlodipine Besylate 5 Mg Tab PO 11/28/23 08:59 5 mg QAM TONG Administration Apixaban 5 mg 10/28/23 21:00 10/31/23 08:18 Apixaban 5 Mg Tablet PO 11/27/23 20:59 5 mg AMHS TONG Administration Aspirin 81 mg 10/29/23 09:00 02/16/24 08:28 Aspirin 81 Mg Ectab PO 11/28/23 08:59 81 mg QAM TONG Administration Atorvastatin Calcium 10 mg 10/28/23 21:00 11/01/23 19:59 Atorvastatin 10 Mg Tab PO 11/27/23 20:59 10 mg HS TONG Administration Benzonatate 100 mg 10/28/23 21:00 11/02/23 13:32 Benzonatate 100 Mg Capsule PO 11/27/23 20:59 100 mg TID TONG Administration Calcium Carbonate 500 mg 10/31/23 12:08 10/31/23 12:49 Calcium Carbonate 500 Mg Chewable Tab PO 11/30/23 12:07 500 mg Q4H PRN Administration Indigestion Diclofenac Sodium 2 gm 11/02/23 12:00 11/02/23 12:03 Diclofenac Sod 1% Gel 100 Gm Tube EXT 12/02/23 11:59 2 gm Q6 TONG Administration Protocol Ergocalciferol 1,250 mcg 10/29/23 09:00 10/29/23 08:23 Ergocalciferol 1250 Mcg (50,000 Units) Cap PO 11/28/23 08:59 1,250 mcg Mo@0900 TONG Administration Fluoxetine HCl 10 mg 10/29/23 09:00 11/02/23 08:28 Fluoxetine Hcl 10 Mg Cap PO 11/28/23 08:59 10 mg QAM TONG Administration Fluticasone Furoate 1 puffs 10/29/23 09:00 11/02/23 08:28 Fluticasone Furoate 100mcg 14 Puffs/Inhaler INH 11/28/23 08:59 1 puffs DAILY TONG Administration Guaifenesin/Dextromethorphan 10 ml 10/29/23 14:00 11/02/23 13:32 Guaifenesin/Dextrom Syrup 200mg/20mg 10ml Udc PO 11/28/23 13:59 10 ml Q6H TONG Administration Ceftriaxone Sodium 1,000 mg/ 50 mls @ 100 mls/hr 10/29/23 16:00 11/01/23 17:32 Dextrose IV 11/04/23 15:59 Infused Q24H TONG Infusion Protocol Doxycycline Hyclate 100 mg/ 100 mls @ 50 mls/hr 10/29/23 06:00 11/02/23 07:03 Dextrose IV 11/05/23 05:59 Infused Q12H TONG Infusion Meclizine HCl 25 mg 10/28/23 19:43 10/29/23 08:26 Meclizine 12.5 Mg Tab PO 11/27/23 19:42 25 mg TID PRN Administration Dizziness Melatonin 3 mg 10/30/23 22:28 11/01/23 20:02 Melatonin 3 Mg Tab PO 11/29/23 22:27 3 mg HS PRN Administration Sleep Metoprolol Succinate 12.5 mg 10/28/23 21:00 11/02/23 08:28 Metoprolol Succ 25mg Ext Rel Tab PO 11/27/23 20:59 12.5 mg AMHS TONG Administration Mirtazapine 15 mg 10/28/23 21:00 11/01/23 19:59 Mirtazapine Tab 15 Mg Tab PO 11/27/23 20:59 15 mg HS TONG Administration Multivitamins/Minerals 1 tab 10/28/23 21:00 11/02/23 08:28 Cerovite Adv Formula Tab PO 11/27/23 20:59 1 tab AMHS TONG Administration Pantoprazole Sodium 40 mg 10/28/23 21:00 11/02/23 08:28 Pantoprazole 40 Mg Tab PO 11/27/23 20:59 40 mg AMHS TONG Administration Umeclidinium/Vilanterol 1 puffs 10/29/23 09:00 11/02/23 08:27 Umeclidinium/Vilanterol 62.5/25mcg 7 Puffs/Inhaler INH 11/28/23 08:59 1 puffs DAILY TONG Administration Zolpidem Tartrate 5 mg 10/28/23 19:13 10/29/23 20:13 Zolpidem Tartrate 5 Mg Tab PO 11/27/23 19:12 5 mg HS PRN Administration Sleep (6) Coronary artery disease Associated angina: without angina Coronary Disease-Associated Artery/Lesion type: [place] artery [place] vs. transplanted heart: [place] heart Qualified Code(s): I25.10 - Atherosclerotic heart disease of [place] coronary artery without angina pectoris
[2023-11-02 17:02] LABS: Glucose Pleural Fluid 155 mg/dl; LDH Pleural Fluid 64 U/L; Total Protein Pleural Fluid < 3.0 gm/dl
[2023-11-02 18:18] LABS: Appearance Pleural Fluid Hazy; Basophils, Fluid 1 %; Color Pleural Fluid Yellow; Lymphocytes, Fluid 67 %; Mono,Macrophage,Mesothelial 19 %; Neutrophils, Fluid 13 %; RBC Pleural Fluid Auto < 2000 /uL; Source Pleural Fluid Right Lung; WBC Pleural Fluid Auto 98 /uL
[2023-11-02] MEDS: FUROSEMIDE INJ 20 MG/2 ML VIAL IV SCH (22:31)
[2023-11-03 06:27] LABS: Base Excess VBG 23.2 mEq/L; HCO3 VBG 52 mmol/L; Oxygen Saturation VBG < 60.0 %; PCO2 VBG 75 mmHg (38-50); PO2 VBG 21 mmHg; pH VBG 7.45 (7.36-7.41)
[2023-11-03 06:38] LABS: Hematocrit (blood only) 31.5 % (37.0-47.0); Hemoglobin 9.3 g/dl (12.0-16.0); Mean Corpuscular Hgb Conc 29.5 g/dL (32.0-36.0); Mean Corpuscular Volume 101.6 fL (80.0-100.0); Mean Platelet Volume 10.6 fL (9.4-12.4); Platelet Count 273 K/uL (130-400); RDW Coefficient of Variation 15.5 % (11.5-14.5); RDW Standard Deviation 57.5 fL (36.4-46.3); White Blood Count 10.21 K/ul (4.8-10.8)
[2023-11-03 06:56] LABS: BUN Creatinine Ratio 13.2 (10-20); Blood Urea Nitrogen 20 mg/dl (6-23); Carbon Dioxide > 45 mmol/L (21-32); Chloride 96 mmol/L (98-107); Creatinine Clr Calc Pharmacy 22.5 ml/min; Est GFR (African American) 35.4 ml/min; Est GFR (Non-African American) 30.5 ml/min; Glucose 120 mg/dl (70-99(Fasting)); Potassium 4.3 mmol/L (3.5-5.1); Sodium 143 mmol/L (136-145)
--- NOTE | 2023-11-03 08:18 | Hospitalist Progress Note ---
Date of Service November 03, 2023 Assessment & Plan (1) AMS (altered mental status): (2) Chronic hypoxic respiratory failure: (3) Acute respiratory failure with hypoxia and hypercapnia: (4) COPD (chronic obstructive pulmonary disease) with emphysema: (5) Chronic heart failure with preserved ejection fraction (HFpEF): (6) Coronary artery disease: (7) Paroxysmal atrial fibrillation: (8) S/P TAVR (transcatheter aortic valve replacement): (9) Left bundle branch block: (10) CKD (chronic kidney disease), stage III: (11) HTN (hypertension): (12) Dyslipidemia: Plan: Ms. Harris is an 88-year-old female with PMH of chronic hypoxic respiratory failure, chronic diastolic CHF, COPD, remote tobacco use [smoking 2 packs a day x 60 years, quit 7 years ago], pulmonary nodules, pleural effusion, HTN, HLD, CAD, bilateral carotid artery stenosis, severe aortic stenosis, stenosis of left vertebral artery, status post TAVR, LBBB, macular degeneration of right eye, CKD stage III, GERD presented to the hospital 10/28 with new onset acute shortness of breath and cough [associated with yellow/green sputum] for the past 2 days prior to admission on 10/28. Marginally improving day by day, but pain in right costal area remained present. CXR still with notable effusion prompting thoracentesis this am. 650cc fluid removed--sent for cytology. Was undergoing IV diuersis, however given increasing bicarb, Nephrology holding for reassessment. Patient clinically doing better. #Acute on chronic hypoxic/hypercapnia respiratory failure, multifactorial #Emphysema/COPD #Acute on chronic heart failure with preserved EF Chronic home oxygen of 2-3L Patient presenting with shortness of breath and cough with yellow sputum. Admitting imaging suggestive of multifocal airspace opacities, bilateral pleural effusion, pulmonary edema, 2.1 cm left upper lobe opacity. Follow-up CT chest in 2 months recommended to document resolution. ABG at presentation with hypercapnia and hypoxia. Respiratory BioFire is negative. Continue home inhalers, Mucinex, incentive spirometer, flutter valve. Back to baseline oxygen requirements Patient received a dose of Lasix in the ED, nephrology aiding in diuersis efforts--lasix q8h IV, reduced to k08s--dcb held as of 11/03 Completed course Rocephin and doxycycline started 2/11. EOT 11/02 Pulmonology consulted -BNP 674, s/p thorcentesis Nephrology consulted -degree of cr increased acceptable for fluid removal; IV lasix q8h on 11/01, now to q 12 11/02, lasix held today 11/03 -Follow BMP, mag, phos, replace lytes prn Encouraged NIPPV, patient continues to decline #Transudative Pleural Effusion Pulmonology following, no recommendations for thoracentesis at this time Attempt further volume optimization with diuresis as tolerated Negative light's criteria Transudative, s/p thora on 11/02 -650cc #Frequent falls: Admitting pelvic x-ray, elbow x-ray, knee x-ray, neck CT and head CTA and head CT with no acute findings. PT/OT rehab #Paroxysmal A-fib #Calcific aortic stenosis, status post TAVR Hx of afib RVR issues with previous hospitalizations due to pneumonia Continue metoprolol 12.5 mg QID, amiodarone 200 mg daily Hold eliquis 5mg bid At home take furosemide MWF -IV lasix resumed, Nephrology for optimization--holding today 2/2 worsening alkalosis Monitor and replete electrolytes. #Mild nonobstructive CAD per cardiac catheterization 01/27/2019 #Left bundle branch block noted post TAVR 05/27/2019 #Chronic heart failure with preserved ejection fraction (HFpEF): On Lasix 20 mg MWF at home Diuersis as above #CKD III: Chronic, stable, slightly better than baseline currently with Cr of 1.19/BUN 17-likely secondary to trace volume overload, appears baseline Cr. is 1.2-1.4 Nephrology consulted to aid in optimization of diuresis -Reviewed recommendations, holding 2/2 alkalosis -Declines BPAP use Serum bicarb stable given other concurrent morbdities VBG in am DVT ppx: teds, scds FEN/GI: Heart healthy diet CODE: DNR/DNI Plan for rehab upon discharge Admission and Anticipated Discharge Date Admission Date: October 28, 2023 Subjective Evaluated in bedside chair Reports feeling much better than prior days, outside of pain from pressure sore on sacrum She is more awake and alert and more conversational/pleasant than prior evaluations Physical Exam Constitutional: WD/WN, vitals as above Cardiovascular: RRR, no murmur, no edema Gastrointestinal (Abdomen): normal bowel sounds, soft, nontender, no hepatosplenomegaly Neurologic: PERRL, EOMI, accommodation nl, no face palsy, no dysarthria Results & Data Results & Data Vital Signs (Past 12 Hours) Vital Signs Temp Pulse Pulse Resp BP Pulse Ox O2 Del Method 11/03/23 04:02 36.7 C 61 18 137/67 97 Nasal Cannula 11/02/23 23:26 58 L 11/02/23 23:17 37 C 60 20 95/55 L 96 Nasal Cannula 11/02/23 21:59 Nasal Cannula O2 Flow Rate 11/03/23 04:02 3 11/02/23 23:26 11/02/23 23:17 3 11/02/23 21:59 3 (6) Coronary artery disease Associated angina: without angina Coronary Disease-Associated Artery/Lesion type: [place] artery [place] vs. transplanted heart: [place] heart Qualified Code(s): I25.10 - Atherosclerotic heart disease of [place] coronary artery without angina pectoris
--- NOTE | 2023-11-03 10:34 | Nephrology Progress Note ---
Date of Service November 03, 2023 Assessment & Plan (1) Acute respiratory failure with hypoxia and hypercapnia: Plan: Patient with acute respiratory failure of multifactorial etiology including pneumonia and atelectasis. Continue to mobilize the patient. Continue antibiotics per primary team. (2) Chronic hypoxic respiratory failure: Plan: Titrate oxygen per primary team. (3) Acid-base disorder, mixed: Plan: Serum bicarb very high. Will hold Lasix for a day or 2. Plan reviewed Pulm consult, H and P and course of events. Plan above discussed with primary team Admission and Anticipated Discharge Date Admission Date: October 28, 2023 Subjective Seen for acute kidney injury. Main complaint is shortness of breath. No leg swelling. Review of Systems 2 Review of Systems: All other systems were reviewed and negative except as noted in HPI Physical Exam 2 Physical Exam: General exam: Appears comfortable, no acute distress HEENT: Pupils are equal and reactive to light Neck: No JVD, neck is supple trachea is midline Respiratory system: Reduced BS in the bases. Gastrointestinal: Abdomen is soft, non distended, non tender, bowel sounds are present CVS: Regular rate and rhythm. No murmurs, rubs or gallops Musculoskeletal: No joint or muscle tenderness Extremities: Non tender, no edema, peripheral pulses are present Neuro: Oriented, no tremors, no focal neurological deficits Skin: No rashes Results & Data Vital Signs (Past 12 Hours) Vital Signs Temp Pulse Pulse Resp BP BP Pulse Ox 11/03/23 07:45 36.7 C 58 L 18 112/63 97 11/03/23 04:02 36.7 C 61 18 137/67 97 11/02/23 23:26 58 L 11/02/23 23:17 37 C 60 20 95/55 L 96 O2 Del Method O2 Flow Rate 11/03/23 07:45 Nasal Cannula 3 11/03/23 04:02 Nasal Cannula 3 11/02/23 23:26 11/02/23 23:17 Nasal Cannula 3 Laboratory Results 11/03/23 06:16 11/02/23 11/03/23 05:52 06:16 WBC 10.21 RBC 3.10 L MCV 101.6 H MCH 30.0 MCHC 29.5 L RDW Std Deviation 57.5 H RDW Coeff of [place] 15.5 H Plt Count 273 MPV 10.6 Phosphorus 5.6 H Albumin 2.5 L
[2023-11-04 06:46] LABS: Hematocrit (blood only) 30.8 % (37.0-47.0); Hemoglobin 9.2 g/dl (12.0-16.0); Mean Corpuscular Hemoglobin 29.9 pg (25.0-34.0); Mean Corpuscular Hgb Conc 29.9 g/dL (32.0-36.0); Mean Platelet Volume 10.8 fL (9.4-12.4); Platelet Count 268 K/uL (130-400); RDW Coefficient of Variation 15.2 % (11.5-14.5); Red Blood Count 3.08 M/uL (4.20-5.40); White Blood Count 9.93 K/ul (4.8-10.8)
[2023-11-04 07:08] LABS: BUN Creatinine Ratio 13.1 (10-20); Calcium 8.3 mg/dl (8.6-10.3); Creatinine Clr Calc Pharmacy 17.9 ml/min; Est GFR (African American) 29.8 ml/min; Est GFR (Non-African American) 25.7 ml/min; Magnesium 2.2 mg/dl (1.7-2.4); Phosphorus 3.5 mg/dl (2.5-4.9); Potassium 4.1 mmol/L (3.5-5.1)
--- NOTE | 2023-11-04 15:11 | Hospitalist Progress Note ---
Date of Service November 04, 2023 Assessment & Plan (1) AMS (altered mental status): (2) Chronic hypoxic respiratory failure: (3) Acute respiratory failure with hypoxia and hypercapnia: (4) COPD (chronic obstructive pulmonary disease) with emphysema: (5) Chronic heart failure with preserved ejection fraction (HFpEF): (6) Coronary artery disease: (7) Paroxysmal atrial fibrillation: (8) S/P TAVR (transcatheter aortic valve replacement): (9) Left bundle branch block: (10) CKD (chronic kidney disease), stage III: (11) HTN (hypertension): (12) Dyslipidemia: Plan: Ms. Harris is an 88-year-old female with PMH of chronic hypoxic respiratory failure, chronic diastolic CHF, COPD, remote tobacco use [smoking 2 packs a day x 60 years, quit 7 years ago], pulmonary nodules, pleural effusion, HTN, HLD, CAD, bilateral carotid artery stenosis, severe aortic stenosis, stenosis of left vertebral artery, status post TAVR, LBBB, macular degeneration of right eye, CKD stage III, GERD presented to the hospital 10/28 with new onset acute shortness of breath and cough [associated with yellow/green sputum] for the past 2 days prior to admission on 10/28. Marginally improving day by day, but pain in right costal area remained present. CXR still with notable effusion prompting thoracentesis this am. 650cc fluid removed--sent for cytology. Was undergoing IV diuersis, however given increasing bicarb, Nephrology holding for reassessment. Diuertics held for additional day with plan to start PO regimen in am and pursue discharge to [facility] Patient clinically doing better and reports subjective improvement as well #Acute on chronic hypoxic/hypercapnia respiratory failure, multifactorial #Emphysema/COPD #Acute on chronic heart failure with preserved EF Chronic home oxygen of 2-3L Patient presenting with shortness of breath and cough with yellow sputum. Admitting imaging suggestive of multifocal airspace opacities, bilateral pleural effusion, pulmonary edema, 2.1 cm left upper lobe opacity. Follow-up CT chest in 2 months recommended to document resolution. ABG at presentation with hypercapnia and hypoxia. Respiratory BioFire is negative. Continue home inhalers, Mucinex, incentive spirometer, flutter valve. Back to baseline oxygen requirements Patient received a dose of Lasix in the ED, nephrology aiding in diuersis efforts--lasix q8h IV, reduced to f03w--jwp held as of 11/03 Completed course Rocephin and doxycycline started 10/28. EOT 11/02 Pulmonology consulted -BNP 674, s/p thorcentesis Nephrology consulted -degree of cr increased acceptable for fluid removal; IV lasix q8h on 11/01, now to q 12 11/02, lasix held today 11/03 -Start lasix po 20mg qam tomorrow -Follow BMP, mag, phos, replace lytes prn Encouraged NIPPV, patient continues to decline #Transudative Pleural Effusion Pulmonology following, no recommendations for thoracentesis at this time Attempt further volume optimization with diuresis as tolerated Negative light's criteria Transudative, s/p thora on 11/02 -650cc #Frequent falls: Admitting pelvic x-ray, elbow x-ray, knee x-ray, neck CT and head CTA and head CT with no acute findings. PT/OT rehab #Paroxysmal A-fib #Calcific aortic stenosis, status post TAVR Hx of afib RVR issues with previous hospitalizations due to pneumonia Continue metoprolol 12.5 mg QID, amiodarone 200 mg daily Resume eliquis 5mg bid At home take furosemide MWF -IV lasix resumed, Nephrology for optimization--holding today 2/2 worsening alkalosis -Start Lasix daily tomorrow, continue upon discharge Monitor and replete electrolytes. #Mild nonobstructive CAD per cardiac catheterization 01/27/2019 #Left bundle branch block noted post TAVR 05/27/2019 #Chronic heart failure with preserved ejection fraction (HFpEF): On Lasix 20 mg MWF at home Diuersis as above #CKD III: Chronic, stable, slightly better than baseline currently with Cr of 1.19/BUN 17-likely secondary to trace volume overload, appears baseline Cr. is 1.2-1.4 Nephrology consulted to aid in optimization of diuresis -Reviewed recommendations, holding 2/2 alkalosis -Declines BPAP use Serum bicarb stable given other concurrent morbdities Resume lasix po tomorrow DVT ppx: teds, scds FEN/GI: Heart healthy diet CODE: DNR/DNI Plan for rehab upon discharge--dispo likely tomorrow if bed available Admission and Anticipated Discharge Date Admission Date: October 28, 2023 Subjective NAEO Patient interactive and pleasant today--reports missing her dog, but knows she must go to rehab and recover to some degree before home is a possibility. Denies any acute concerns at this time Physical Exam Constitutional: WD/WN, vitals as above Respiratory: normal respiratory effort, lungs clear to auscultation (no crackles appreciate, though decreased in bibasilar areas ) Cardiovascular: RRR, no murmur, no edema Gastrointestinal (Abdomen): normal bowel sounds, soft, nontender, no hepatosplenomegaly Results & Data Results & Data Vital Signs (Past 12 Hours) Vital Signs Temp Pulse Pulse Resp BP Pulse Ox O2 Del Method 11/04/23 15:04 58 L 11/04/23 12:21 36.7 C 60 16 111/45 L 94 Nasal Cannula 11/04/23 08:00 58 L 11/04/23 08:00 Nasal Cannula 11/04/23 07:56 36.5 C 64 18 113/58 L 91 Nasal Cannula O2 Flow Rate 11/04/23 15:04 11/04/23 12:21 3 11/04/23 08:00 11/04/23 08:00 2.5 11/04/23 07:56 2.5 Laboratory Results Short CBC 11/04/23 Range/Units 06:18 WBC 9.93 (4.8-10.8) K/ul Hgb 9.2 L (12.0-16.0) g/dl Hct 30.8 L (37.0-47.0) % Plt Count 268 (130-400) K/uL BMP 11/04/23 06:18 Sodium 142 Potassium 4.1 Chloride 96 L Carbon Dioxide 45 H* BUN 23 Creatinine 1.75 H Glucose 104 H Calcium 8.3 L Medications Administered Home Medications Medication Instructions Recorded Confirmed Last Taken meclizine 25 mg chewable tablet 25 mg PO TID PRN Dizziness 12/31/18 10/28/23 08/04/23 19:00 vit C 250 mg-vit E 90 mg-zinc 40 1 tab PO AMHS 05/29/19 10/28/23 08/28/23 mg-copper 1 un-[id number] capsule (PreserVision AREDS-2) ondansetron 4 mg disintegrating 4 - 8 mg PO Q8H PRN Nausea 05/16/20 10/28/23 10/04/22 tablet aspirin 81 mg tablet,delayed 81 mg PO QAM 10/29/21 10/28/23 08/28/23 release ergocalciferol (vitamin D2) 1,250 50,000 unit PO WK 10/29/21 10/28/23 08/27/23 mcg (50,000 unit) capsule hydrocodone 5 mg-acetaminophen 325 1 tab PO Q8 PRN Pain 10/29/21 10/28/23 11/21/22 mg tablet zolpidem 5 mg tablet (Ambien) 5 mg PO HS PRN Sleep 10/29/21 10/28/23 08/04/23 19:00 fluoxetine 10 mg tablet 10 mg PO QAM 09/27/22 10/28/23 08/28/23 furosemide 20 mg tablet 20 mg PO 3XWK 09/27/22 10/28/23 08/27/23 fluticasone fur. 100 mcg-umeclid 1 inh inhalation QAM #60 ea 01/26/23 10/28/23 08/28/23 62.5 mcg-vilant 25 mcg inhalat.powder (Trelegy Ellipta) atorvastatin 10 mg tablet 10 mg PO HS #30 tabs 08/12/23 10/28/23 08/28/23 acetaminophen 325 mg tablet 975 mg PO Q8H 08/28/23 10/28/23 08/28/23 (Tylenol) amoxicillin 500 mg capsule 2,000 mg PO DIRECTED PRN 1 HR 08/28/23 10/28/23 Unknown PRIOR TO DENTAL PROCEDURES guaifenesin 600 mg tablet, 600 mg PO AMHS 08/28/23 10/28/23 08/28/23 extended release 12 hr (Mucinex) ipratropium 20 mcg-albuterol 100 1 puff inhalation QID PRN 08/28/23 10/28/23 Unknown mcg/actuation mist for inhalation NEEDED PER [facility] albuterol sulfate 90 mcg/actuation 2 inh inhalation Q6H PRN shortness 08/29/23 10/28/23 Unknown aerosol inhaler (Ventolin HFA) of breath or wheezing amiodarone 200 mg tablet 200 mg PO QAM 08/29/23 10/28/23 08/28/23 Oxygen Home E0424 #1 ea 09/24/23 10/28/23 Unknown amlodipine 5 mg tablet 5 mg PO QAM 10/28/23 10/28/23 Unknown apixaban 5 mg tablet (Eliquis) 5 mg PO AMHS 10/28/23 10/28/23 Unknown metoprolol succinate 25 mg 12.5 mg PO AMHS 10/28/23 10/28/23 Unknown tablet,extended release 24 hr mirtazapine 15 mg tablet 15 mg PO HS 10/28/23 10/28/23 Unknown omeprazole 20 mg capsule,delayed 20 mg PO AMHS 10/28/23 10/28/23 Unknown release pantoprazole 20 mg tablet,delayed 20 mg PO AMPM 10/28/23 10/28/23 Unknown release Active Medications Generic Name Dose Route Start Last Admin Trade Name Freq PRN Reason Stop Dose Admin Acetaminophen 975 mg 10/28/23 19:13 11/04/23 10:57 Acetaminophen 325 Mg Tab PO 11/27/23 19:12 Not Given Q8H TONG Hydrocodone Bitart/Acetaminophen 1 tab 10/28/23 19:13 11/04/23 10:56 Hydrocodone/Acetamophen 5/325mg Tab PO 11/11/23 19:12 1 tab Q8 PRN Administration Pain Amiodarone HCl 200 mg 10/29/23 09:00 11/04/23 07:49 Amiodarone 200 Mg Tab PO 11/28/23 08:59 200 mg QAM TONG Administration Amlodipine Besylate 5 mg 10/29/23 09:00 11/04/23 07:50 Amlodipine Besylate 5 Mg Tab PO 11/28/23 08:59 5 mg QAM TONG Administration Apixaban 5 mg 10/28/23 21:00 10/31/23 08:18 Apixaban 5 Mg Tablet PO 11/27/23 20:59 5 mg AMHS TONG Administration Aspirin 81 mg 10/29/23 09:00 11/04/23 07:49 Aspirin 81 Mg Ectab PO 11/28/23 08:59 81 mg QAM TONG Administration Atorvastatin Calcium 10 mg 10/28/23 21:00 11/03/23 19:28 Atorvastatin 10 Mg Tab PO 11/27/23 20:59 10 mg HS TONG Administration Benzonatate 100 mg 10/28/23 21:00 11/04/23 14:14 Benzonatate 100 Mg Capsule PO 11/27/23 20:59 100 mg TID TONG Administration Calcium Carbonate 500 mg 10/31/23 12:08 10/31/23 12:49 Calcium Carbonate 500 Mg Chewable Tab PO 11/30/23 12:07 500 mg Q4H PRN Administration Indigestion Diclofenac Sodium 2 gm 11/02/23 12:00 11/04/23 13:11 Diclofenac Sod 1% Gel 100 Gm Tube EXT 12/02/23 11:59 Not Given Q6 TONG Protocol Ergocalciferol 1,250 mcg 10/29/23 09:00 10/29/23 08:23 Ergocalciferol 1250 Mcg (50,000 Units) Cap PO 11/28/23 08:59 1,250 mcg Mo@0900 TONG Administration Fluoxetine HCl 10 mg 10/29/23 09:00 11/04/23 07:50 Fluoxetine Hcl 10 Mg Cap PO 11/28/23 08:59 10 mg QAM TONG Administration Fluticasone Furoate 1 puffs 10/29/23 09:00 11/04/23 07:49 Fluticasone Furoate 100mcg 14 Puffs/Inhaler INH 11/28/23 08:59 1 puffs DAILY TONG Administration Furosemide 30 mg 11/02/23 22:00 11/03/23 09:20 Furosemide Inj 20 Mg/2 Ml Vial IV 12/02/23 21:59 30 mg Q12H TONG Administration Guaifenesin/Dextromethorphan 10 ml 10/29/23 14:00 11/04/23 14:14 Guaifenesin/Dextrom Syrup 200mg/20mg 10ml Udc PO 11/28/23 13:59 10 ml Q6H TONG Administration Meclizine HCl 25 mg 10/28/23 19:43 11/04/23 07:51 Meclizine 12.5 Mg Tab PO 11/27/23 19:42 25 mg TID PRN Administration Dizziness Melatonin 3 mg 10/30/23 22:28 11/03/23 21:33 Melatonin 3 Mg Tab PO 11/29/23 22:27 3 mg HS PRN Administration Sleep Metoprolol Succinate 12.5 mg 10/28/23 21:00 11/04/23 07:50 Metoprolol Succ 25mg Ext Rel Tab PO 11/27/23 20:59 12.5 mg AMHS TONG Administration Mirtazapine 15 mg 10/28/23 21:00 11/03/23 19:27 Mirtazapine Tab 15 Mg Tab PO 11/27/23 20:59 15 mg HS TONG Administration Multivitamins/Minerals 1 tab 10/28/23 21:00 11/04/23 07:49 Cerovite Adv Formula Tab PO 11/27/23 20:59 1 tab AMHS TONG Administration Pantoprazole Sodium 40 mg 10/28/23 21:00 11/04/23 07:49 Pantoprazole 40 Mg Tab PO 11/27/23 20:59 40 mg AMHS TONG Administration Umeclidinium/Vilanterol 1 puffs 10/29/23 09:00 11/04/23 07:49 Umeclidinium/Vilanterol 62.5/25mcg 7 Puffs/Inhaler INH 11/28/23 08:59 1 puffs DAILY TONG Administration Zolpidem Tartrate 5 mg 10/28/23 19:13 10/29/23 20:13 Zolpidem Tartrate 5 Mg Tab PO 11/27/23 19:12 5 mg HS PRN Administration Sleep (6) Coronary artery disease Coronary Disease-Associated Artery/Lesion type: [place] artery [place] vs. transplanted heart: [place] heart Associated angina: without angina Qualified Code(s): I25.10 - Atherosclerotic heart disease of [place] coronary artery without angina pectoris
[2023-11-05] MEDS: FUROSEMIDE 20 MG TAB PO SCH (08:39)
[2023-11-05 08:48] LABS: Calcium 8.2 mg/dl (8.6-10.3); Potassium 4.3 mmol/L (3.5-5.1)
[2023-11-05 08:53] LABS: BUN Creatinine Ratio 13.5 (10-20); Est GFR (African American) 30.9 ml/min; Est GFR (Non-African American) 26.6 ml/min
--- NOTE | 2023-11-05 10:53 | Discharge Summary ---
Discharge Summary Date of Service November 05, 2023 Notes For Next Care Provider Follow up BMP in 1 week 60.8 K on discharge Medication Changes From Visit Furosemide 20mg daily Admission HPI Per Admitting Provider This is an 88-year-old female with PMHx of chronic hypoxic respiratory failure, chronic diastolic CHF, COPD, remote tobacco use smoking 2 packs/day x 60 years/quit 7 years ago, pulmonary nodules, pleural effusion, HTN, HLD, CAD, bilateral carotid artery stenosis, severe aortic stenosis, stenosis of left vertebral artery, status post TAVR, LBBB, macular degeneration of right eye, CKD stage III, GERD who presents to the hospital with new onset acute shortness of breath and cough for the past 2 days. Her noted to nursing staff that she also was seeing/hallucinating at home which is not unusual whenever she gets sick. He is not present during my examination to support the history. She states that she has had to increase her O2 from 4 L to 5 L at home due to worsening shortness of breath, has been using her albuterol inhaler very frequently, and is coughing up yellow/green sputum. She feels like she is tripping over her oxygen tank at home quite often but denies any recent falls, loss of consciousness or trauma to the head. 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 Patient denies having visual hallucinations or auditory hallucinations at this time but did ask the nurses in the room about the bunny rabbits on the ceiling in the hospital earlier today. She denies any other acute symptoms, no fevers, chills or sweats, no chest pain. She reports having chronic right-sided hip pain from previous fractures, walks with use of a walker at baseline. Admission Exam Per Admitting Provider General: awake, alert, no apparent distress, chronically ill, white female, BMI 29 Head: Normocephalic, atraumatic ENT: PERRL, EOMI, no pharyngeal exudate, mucous membranes moist Chest: Coarse rales throughout, rhonchi and mid lung flores, diminished breath sounds at bases, on 4L via NC, just completed a nebulizer treatment at bedside, + cough Cardiac: Regular rate and rhythm, no murmur, no JVD, normal peripheral pulses, good capillary refill Abdominal: NABS x 4 quadrants, soft, nondistended, nontender to palpation, no rebound or guarding Extremities: 1+ pitting edema in bilateral lower extremities up to mid tibial region, no peripheral erythema, calfs nontender to palpation Psych: Normal mood and affect, denies auditory or visual hallucination Neuro: AAO x 3, strength intact bilaterally and rated 4/5, no motor deficits, speech is clear, no peripheral sensory deficits Principal Dx & Hospital Course #1 = Principal Diagnosis (1) AMS (altered mental status): (2) Chronic hypoxic respiratory failure: (3) Acute respiratory failure with hypoxia and hypercapnia: (4) COPD (chronic obstructive pulmonary disease) with emphysema: (5) Chronic heart failure with preserved ejection fraction (HFpEF): (6) Coronary artery disease: (7) Paroxysmal atrial fibrillation: (8) S/P TAVR (transcatheter aortic valve replacement): (9) Left bundle branch block: (10) CKD (chronic kidney disease), stage III: (11) HTN (hypertension): (12) Dyslipidemia: Ms. Harris is an 88-year-old female with PMH of chronic hypoxic respiratory failure, chronic diastolic CHF, COPD, remote tobacco use [smoking 2 packs a day x 60 years, quit 7 years ago], pulmonary nodules, pleural effusion, HTN, HLD, CAD, bilateral carotid artery stenosis, severe aortic stenosis, stenosis of left vertebral artery, status post TAVR, LBBB, macular degeneration of right eye, CKD stage III, GERD presented to the hospital 10/28 with new onset acute shortness of breath and cough [associated with yellow/green sputum] for the past 2 days prior to admission on 10/28. Marginally improving day by day, but pain in right costal area remained present. CXR still with notable effusion prompting thoracentesis on 11/02 with 650cc fluid removed--sent for cytology. NGTD on dischagre/ Was undergoing IV diuersis, however given increasing bicarb, Nephrology held on 11/04 with plans to resume PO daily dose upon the day of discharge. Patient reports feeling much better and on home O2. She denies any acute concerns and eager for rehab. #Acute on chronic hypoxic/hypercapnia respiratory failure, multifactorial #Emphysema/COPD #Acute on chronic heart failure with preserved EF Chronic home oxygen of 2-3L Patient presenting with shortness of breath and cough with yellow sputum. Admitting imaging suggestive of multifocal airspace opacities, bilateral pleural effusion, pulmonary edema, 2.1 cm left upper lobe opacity. Follow-up CT chest in 2 months recommended to document resolution. ABG at presentation with hypercapnia and hypoxia. Respiratory BioFire is negative. Continue home inhalers, Mucinex, incentive spirometer, flutter valve. Back to baseline oxygen requirements Patient received a dose of Lasix in the ED, nephrology aiding in diuersis efforts--lasix q8h IV, reduced to [id number]--apu held as of 11/03 Completed course Rocephin and doxycycline started 10/28. EOT 11/02 Pulmonology consulted -BNP 674, s/p thorcentesis Nephrology consulted -degree of cr increased acceptable for fluid removal; IV lasix q8h on 11/01, now to q 12 11/02, lasix held 11/03/17 -Continue lasix po 20mg qam daily Encouraged NIPPV, patient continues to decline #Transudative Pleural Effusion Pulmonology following, no recommendations for thoracentesis at this time Attempt further volume optimization with diuresis as tolerated Negative light's criteria Transudative, s/p thora on 11/02 -650cc NGTD on culture upon discharge #Frequent falls: Admitting pelvic x-ray, elbow x-ray, knee x-ray, neck CT and head CTA and head CT with no acute findings. PT/OT rehab #Paroxysmal A-fib #Calcific aortic stenosis, status post TAVR Hx of afib RVR issues with previous hospitalizations due to pneumonia Continue metoprolol 12.5 mg QID, amiodarone 200 mg daily Continue eliquis 5mg bid At home take furosemide MWF -IV lasix resumed, Nephrology for optimization--holding today 2/2 worsening alkalosis -Start Lasix daily, continue upon discharge (change from home MWF regimen) Monitor and replete electrolytes. #Mild nonobstructive CAD per cardiac catheterization 01/27/2019 #Left bundle branch block noted post TAVR 05/27/2019 #Chronic heart failure with preserved ejection fraction (HFpEF): On Lasix 20 mg MWF at home Diuersis as above #CKD III: Chronic, stable, slightly better than baseline currently with Cr of 1.19/BUN 17-likely secondary to trace volume overload, appears baseline Cr. is 1.2-1.4 Nephrology consulted to aid in optimization of diuresis -Reviewed recommendations, holding 2/2 alkalosis -Declines BPAP use Serum bicarb stable given other concurrent morbdities lasix po daily Discharge Exam Constitutional WD/WN, vitals as above Respiratory normal respiratory effort, lungs clear to auscultation (no crackles appreciate, though decreased in bibasilar areas ) Cardiovascular RRR, no murmur, no edema Gastrointestinal (Abdomen) normal bowel sounds, soft, nontender, no hepatosplenomegaly Neurologic PERRL, EOMI, accommodation nl, no face palsy, no dysarthria Updated Medication List Medication Instructions Recorded Confirmed Type meclizine 25 mg chewable tablet 25 mg PO TID PRN Dizziness 12/31/18 10/28/23 History vit C 250 mg-vit E 90 mg-zinc 40 1 tab PO AMHS 05/29/19 10/28/23 History mg-copper 1 [id number] capsule (PreserVision AREDS-2) ondansetron 4 mg disintegrating 4 - 8 mg PO Q8H PRN Nausea 05/16/20 10/28/23 History tablet aspirin 81 mg tablet,delayed 81 mg PO QAM 10/29/21 10/28/23 History release ergocalciferol (vitamin D2) 1,250 50,000 unit PO WK 10/29/21 10/28/23 History mcg (50,000 unit) capsule hydrocodone 5 mg-acetaminophen 325 1 tab PO Q8 PRN Pain 10/29/21 10/28/23 History mg tablet zolpidem 5 mg tablet (Ambien) 5 mg PO HS PRN Sleep 10/29/21 10/28/23 History fluoxetine 10 mg tablet 10 mg PO QAM 09/27/22 10/28/23 History fluticasone fur. 100 mcg-umeclid 1 inh inhalation QAM #60 ea 01/26/23 10/28/23 Rx 62.5 mcg-vilant 25 mcg inhalat.powder (Trelegy Ellipta) atorvastatin 10 mg tablet 10 mg PO HS #30 tabs 08/12/23 10/28/23 Rx acetaminophen 325 mg tablet 975 mg PO Q8H 08/28/23 10/28/23 History (Tylenol) amoxicillin 500 mg capsule 2,000 mg PO DIRECTED PRN 1 HR 08/28/23 10/28/23 History PRIOR TO DENTAL PROCEDURES guaifenesin 600 mg tablet, 600 mg PO AMHS 08/28/23 10/28/23 History extended release 12 hr (Mucinex) ipratropium 20 mcg-albuterol 100 1 puff inhalation QID PRN 08/28/23 10/28/23 History mcg/actuation mist for inhalation NEEDED PER [facility] albuterol sulfate 90 mcg/actuation 2 inh inhalation Q6H PRN shortness 08/29/23 10/28/23 History aerosol inhaler (Ventolin HFA) of breath or wheezing amiodarone 200 mg tablet 200 mg PO QAM 08/29/23 10/28/23 History Oxygen Home E0424 #1 ea 09/24/23 10/28/23 Rx amlodipine 5 mg tablet 5 mg PO QAM 10/28/23 10/28/23 History apixaban 5 mg tablet (Eliquis) 5 mg PO AMHS 10/28/23 10/28/23 History metoprolol succinate 25 mg 12.5 mg PO AMHS 10/28/23 10/28/23 History tablet,extended release 24 hr mirtazapine 15 mg tablet 15 mg PO HS 10/28/23 10/28/23 History omeprazole 20 mg capsule,delayed 20 mg PO AMHS 10/28/23 10/28/23 History release pantoprazole 20 mg tablet,delayed 20 mg PO AMPM 10/28/23 10/28/23 History release furosemide 20 mg tablet 20 mg PO DAILY #30 tabs 11/05/23 Rx Hospital Stay Data Consultations 10/28/23 17:14 ED Decision to Admit Stat 10/29/23 13:48 Consult Pulmonology Routine 10/31/23 12:26 Consult Nephrology Routine Diagnostic Imagining Performed 10/28/23 14:07 CT angio head w con Stat CT angio neck with con Stat CT head/brain wo con Stat 11/02/23 13:44 IR thoracentesis wo tube US Routine Pending Results Patient Have Any Pending Studies at Discharge: No Discharge Instructions Given to Patient (Per Discharging Provider) You were admitted with shortness of breath and found to be in acute heart failure with fluid on the lungs. You underwent a thoracentesis, or procedure on 11/02 to remove the fluid from your lungs. You improved with daily water pill and you will have the following change to your medications: Furosemide 20mg daily Total Time Total Time Spent Total Time Spent (In Minutes): 45
--- NOTE | 2023-11-09 06:35 | Coding Query ---
To promote full compliance with coding requirements relating to patient care, provider participation is requested in all cases of aeronautical products sales engineer uncertainty. Please assist us with the question(s) below: Coding Question(s): The diagnosis(es) below was documented in the earlier record, then subsequently fell off all further documentation. Please indicate if it is still a possible diagnosis or ruled out. Physician's Response(s): POSSIBLE METABOLIC ENCEPHALOPATHY (documented on the ER Visit Note) ( x ) Diagnosed and POA ( ) Diagnosed and not POA ( ) Ruled out ( ) Other (please specify) POSSIBLE PNEUMONIA (documented from ER through 08/29, then drops off other than on the 11/03 Nephrology Progress Note) (x ) Diagnosed and POA ( ) Diagnosed and not POA ( ) Ruled out ( ) Other (please specify) MTDD
--- NOTE | 2023-11-09 06:40 | Coding Query ---
PRESSURE ULCER DOCUMENTATION To promote full compliance with coding requirements relating to patient care, physician participation is requested in all cases of beader tender uncertainty. Please assist us with the question(s) below: Please specify the known or suspected type by placing an "X" within the parenthesis (x). A Pressure Sore (codes to Pressure Ulcer) of the Sacrum is documented on the 11/03 Progress Note: If possible, please check the box that provides the specific stage of the pressure ulcer ( ) Stage I ( ) Stage II ( ) Stage III ( ) Stage IV ( x) Unstageable Was the pressure ulcer present on admission? Please check the appropriate box for the pressure ulcer: ( x) Present on admission ( ) Not present on admission ( ) Unable to be clinically determined Thank you Georgia Ríos [facility]
--- NOTE | 2023-11-09 06:44 | Coding Query ---
CODING QUERY To promote full compliance with coding requirements relating to patient care, provider participation is requested in all cases of children's entertainer uncertainty. Please assist us with the question(s) below: Coding Question(s): The ER Visit Note documents, " Case discussed with hospitalist team for additional evaluation and management due to concern for evolving infection and worsening effusion that would likely explain the hypoxia and possible metabolic encephalopathy", and the Discharge Summary documents, " You were admitted with shortness of breath and found to be in acute heart failure with fluid on the lungs. You underwent a thoracentesis, or procedure on 11/02 to remove the fluid from your lungs". Please specify below, in your clinical opinion, the diagnosis most responsible for occasioning the inpatient admission: ( ) Pneumonia ( ) Acute Heart Failure with fluid on the lungs ( x) Acute on Chronic hypoxic/hypercapnia Respiratory Failure ( ) Other: Please Specify Physician's Response(s): Thank you Georgia Ríos Principal Diagnosis: "that condition established after study, to be chiefly responsible for occasioning the admission of the patient to the hospital for care." Co-Existing Principal Diagnosis: "when two or more diagnoses equally meet the criteria for principal diagnosis as determined by the circumstances of admission, diagnostic work up, and/or therapy provided, and the Alphabetic Index, Tabular List, or another coding guideline does not provide sequencing direction, any one of the diagnoses may be sequenced first." "When the physician has documented what appears to be a current diagnosis in the body of the record, but has not included the diagnosis in the final diagnostic statement, the physician should be asked whether the diagnosis should be added." ([facility] 2 QTR90. p3-4) WILMERD
== END 2023-11-05 12:00 | DRG 189 ==
LOC: ED 13:39 → SUATTDRO 17:17 → EDINP 17:17 → 2S 19:13

== ENCOUNTER 2024-01-02 12:40 | Inpatient (IN) ==
[2024-01-02] MEDS: PANTOprazole 80 MG in DEXTROSE 5% 100 ML IV ONE (13:38)
[2024-01-02] MEDS: PANTOPRAZOLE BOLUS/DRIP IV STA (13:40)
[2024-01-02 13:46] LABS: iSTAT Creatinine 3.2 mg/dl (0.6-1.3); iSTAT Hemoglobin 9.2 g/dl (12.0-16.0); iSTAT Ionized Calcium 1.08 mmol/l (1.12-1.32); iSTAT Potassium 4.8 mmol/L (3.3-5.0)
[2024-01-02 14:10] LABS: Hemoglobin 8.1 g/dl (12.0-16.0); Immature Granulocytes # (auto) 0.05 K/uL (0.01-0.20); Immature Granulocytes % (auto) 0.6 %; Lymphocytes # (auto) 0.54 K/uL (1.20-3.40); Mean Corpuscular Hemoglobin 33.3 pg (25.0-34.0); Mean Corpuscular Hgb Conc 31.2 g/dL (32.0-36.0); Mean Platelet Volume 10.2 fL (9.4-12.4); Monocytes # (auto) 0.74 K/uL (0.11-0.59); Monocytes % (auto) 8.3 %; Neutrophils # (auto) 7.63 K/uL (1.40-6.50); Neutrophils % (auto) 85.1 %; Platelet Count 326 K/uL (130-400); RDW Coefficient of Variation 18.4 % (11.5-14.5); RDW Standard Deviation 72.4 fL (36.4-46.3); Red Blood Count 2.43 M/uL (4.20-5.40); White Blood Count 8.96 K/ul (4.8-10.8)
[2024-01-02] MEDS: PANTOprazole 40 MG in DEXTROSE 5% MINI-B 100 ML IV SCH ×2 (14:10→18:57)
[2024-01-02 14:23] LABS: Albumin Level 2.3 gm/dl (3.4-5.0); Bilirubin Direct 0.1 mg/dl (0-0.2); Bilirubin,Total 0.4 mg/dl (0.2-1.0); Calcium 7.8 mg/dl (8.6-10.3); Magnesium 2.9 mg/dl (1.7-2.4); Potassium 4.5 mmol/L (3.5-5.1)
[2024-01-02 14:29] LABS: BUN Creatinine Ratio 19.5 (10-20); Creatinine Clr Calc Pharmacy 15.3 ml/min; Est GFR (African American) 18.3 ml/min; Est GFR (Non-African American) 15.8 ml/min; Total Protein 4.9 gm/dl (6.0-8.3)
[2024-01-02 14:34] LABS: Troponin I High Sensitivity 17.2 pg/ml (0-14)
[2024-01-02 14:52] LABS: INR 1.3 (0.9-1.1); Partial Thromboplastin Ratio 1.3; Partial Thromboplastin Time 37 Seconds (21-31); Prothrombin Time 13.9 Seconds (9.0-12.0)
--- NOTE | 2024-01-02 15:07 | CT Scan Report ---
ABDOMEN AND PELVIS CT WITHOUT CONTRAST CT DOSE: 609.21 mGy.cm HISTORY: llq pain gi bleed TECHNIQUE: Multiaxial CT images of the abdomen and pelvis were performed without contrast. A dose lo wering technique was utilized adhering to the principles of ALARA. COMPARISON STUDY: Abdomen and pelvis CT 10/29/2021. FINDINGS: Small right and trace left pleural effusions. Peripheral consolidation within the right emy g base favors atelectasis. The left lung base is clear. An aortic valve prosthesis is noted. No pneum operitoneum. No pneumatosis. There are bilateral total hip arthroplasties. L3-L5 posterior decompress ion and fusion with pedicle screws and rods. Advanced degenerative changes within the upper lumbar sp ine. Mild levoscoliosis of the lumbar spine. No acute fractures. Small fat-containing periumbilical h ernia. Mild body wall edema. Prior cholecystectomy. The unenhanced liver, spleen, and pancreas are un remarkable. Mild bilateral adrenal gland hyperplasia is noted. Bilateral renal hypodense lesions favo r cysts. No hydronephrosis. Mild dilatation of the common bile duct is likely due to the patient's po stcholecystectomy state and age. Calcified plaque within the normal caliber abdominal aorta. No retro peritoneal or pelvic lymphadenopathy. No pelvic free fluid. The deep pelvic structures are suboptimal ly assessed due to the metallic artifact. The bladder appears unremarkable. Prior hysterectomy. Subop timal evaluation for bowel pathology due to the lack of intravenous and oral contrast. However, there is no definite bowel wall thickening or obstruction. Colonic diverticulosis. No evidence for acute d iverticulitis. The appendix is surgically absent. IMPRESSION: 1. No bowel wall thickening or obstruction. 2. Colonic diverticulosis. No evidence for acute diverticulitis. 3. No hydronephrosis. 4. Postoperative changes as described above. 5. Small right and trace left pleural effusions. 6. Additional findings as described above. ACT 112: Negative or not required by law. Electronically signed by: Kaiden Yung M.D. 01/02/2024 3:06 PM
--- NOTE | 2024-01-02 15:10 | XRay Report ---
SINGLE VIEW CHEST CLINICAL HISTORY: Dyspnea FINDINGS: An AP upright chest radiograph is compared to study dated 11/02/2023 and correlated with [facility] st CT dated 12/07/2023. The examination is degraded by portable technique and apical lordotic position ing. There is evidence of previous cardiac valve surgery. The heart is enlarged but noting atheroscle rotic calcification of the thoracic aorta. The pulmonary vasculature is noncongested. Chronic interst itial thickening is similar to previous. There is a right pleural effusion with right basilar consoli dation. Foci of parenchymal scarring are seen throughout both lungs. No pneumothorax is seen. The ske letal structures are osteopenic. The bony thorax is grossly intact. IMPRESSION: 1. Cardiomegaly without radiographic evidence of congestive failure. 2. Small right pleural effusion with right basilar consolidation. ACT 112: Negative or not required by law. Electronically signed by: Riley Hernandez M.D. 01/02/2024 3:09 PM
--- NOTE | 2024-01-02 15:46 | History & Physical Report ---
Date of Service January 02, 2024 Assessment & Plan (1) Anemia: (2) GI bleed: Plan: Patient is 88 year old female with PMH HTN, HLD, atrial fibrillation, COPD, chronic hypoxic hypercapnic respiratory failure, CKD III, depression presented to ER with c/o abnormal labs with Hgb: 6.9 today. In ER afebrile, BPs soft, not tachycardia. H/H: 8.1/26. BUN: 51, Cr: 2.6 Possible GI bleed +heme positive stool in ER In ER given Protonix IV NPO Continue PPI IV Hold Eliquis and aspirin Type and cross and hold PRBC GI consult Repeat H&H tonight CBC, BMP in am Blood consent was obtained from the patient as delegated by Dr Cleary. Risks and benefits were explained. All questions were answered, and the patient was offered the opportunity to discuss with attending physician and declined. (3) MISAEL (acute kidney injury): Plan: MISAEL on CKD III BUN: 51, Cr: 2.6. Baseline Cr: ~1.2 Gentle IVF Hold nephrotoxic agents when possible Monitor renal functions (4) Elevated troponin: Plan: Troponin: 17-->15 EKG: sinus rhythm, t wave inversions inferior leads, chronic LBBB Possible demand ischemia in setting of anemia Denies CP, current SOB Trend troponin EKG in am If troponins up trending consider echo, cardiology consult (5) UTI (urinary tract infection): Plan: Recent UTI on Cipro to 250 mg twice daily x 7 days, started on on evening of 12/27/2023. Hold home Cipro. Will finish course with Rocephin Repeat UA (6) COPD (chronic obstructive pulmonary disease): (7) Chronic hypoxic respiratory failure: Plan: On chronic 3 L oxygen via nasal cannula No signs of acute exacerbation currently Continue home supplemental oxygen, goal 90% Continue home inhalers, guaifenesin and as needed nebs (8) Paroxysmal atrial fibrillation: Plan: Anticoagulated on Eliquis Current sinus rhythm Hold Eliquis currently Continue amiodarone, metoprolol succinate (9) HTN (hypertension): Plan: BP is soft Hold amlodipine (10) Dyslipidemia: Plan: Continue atorvastatin (11) Hip pain, left: Plan: Reported left hip pain. Has been on scheduled Tylenol, as needed oxycodone for severe pain at [facility] Continue scheduled Tylenol, as needed oxycodone severe pain (12) Depression: Plan: Continue fluoxetine DVT Prophylaxis SCDs DNR/DNI as per discussion with pt Follows with Dr Douglas for routine care Pt was seen and care coordinated with Dr Cleary. See addendum I spent a total of 75 minutes reviewing notes, outpatient records, labs, medication, coordinating, documenting and providing care for this patient excluding time spent in the performance of separately billed services. History of Present Illness Chief Complaint: Abdnormal labs Primary Care Provider: [facility] Patient is 88 year old female with PMH HTN, HLD, atrial fibrillation, COPD, chronic hypoxic hypercapnic respiratory failure, CKD III, depression presented to ER with c/o abnormal labs. History obtained from patient, inpatient and outpatient chart review. Patient currently at [facility]. Reported Hgb: 6.9 today and patient referred to ER for further evaluation. Reports having intermittent pain across mid abdomen after eating sometimes pressure type pain sometimes sharp but is unable to state duration of symptoms. She reports feeling tired. States chronic SOB and is unsure if worse. Doesn't think has been having melena or hematochezia. States fell at [facility] a couple of weeks ago. Having some pain to left upper leg that radiates up to left hip. using walker. States some positional dizziness. Denies fever/chills, diaphoresis, N/V/D/C, LESTER, syncope, vision changes, neck pain, CP, orthopnea, palpitations, cough, otalgia, rhinorrhea, paresthesias, increased weakness, increased extremity edema, rashes, urinary symptoms. Allergies Allergy/AdvReac Type Severity Reaction Status Date / Time Sulfa (Sulfonamide Allergy Severe SHORT OF Verified 01/02/24 16:21 Antibiotics) BREATH, ITCHING PER [facility] atenolol AdvReac Intermediate STOMACH Verified 01/02/24 16:21 PAIN PER [facility] lisinopril AdvReac Intermediate HYPERKALEMIA Verified 01/02/24 16:21 PER [facility] Home Medications Medication Instructions Recorded Confirmed Type meclizine 25 mg chewable tablet 25 mg PO TID PRN Dizziness 12/31/18 01/02/24 History vit C 250 mg-vit E 90 mg-zinc 40 1 tab PO AMHS 05/29/19 01/02/24 History mg-copper 1 [id number] capsule (PreserVision AREDS-2) ondansetron 4 mg disintegrating 4 - 8 mg PO Q8H PRN Nausea 05/16/20 01/02/24 History tablet aspirin 81 mg tablet,delayed 81 mg PO QAM 10/29/21 01/02/24 History release ergocalciferol (vitamin D2) 1,250 50,000 unit PO WK 10/29/21 01/02/24 History mcg (50,000 unit) capsule zolpidem 5 mg tablet (Ambien) 5 mg PO HS PRN Sleep 10/29/21 01/02/24 History fluoxetine 10 mg tablet 10 mg PO QAM 09/27/22 01/02/24 History atorvastatin 10 mg tablet 10 mg PO HS #30 tabs 08/12/23 01/02/24 Rx acetaminophen 325 mg tablet 650 mg PO TID 08/28/23 01/02/24 History (Tylenol) amoxicillin 500 mg capsule 2,000 mg PO DIRECTED PRN 1 HR 08/28/23 01/02/24 History PRIOR TO DENTAL PROCEDURES guaifenesin 600 mg tablet, 600 mg PO AMHS 08/28/23 01/02/24 History extended release 12 hr (Mucinex) ipratropium 20 mcg-albuterol 100 1 puff inhalation QID PRN 08/28/23 01/02/24 History mcg/actuation mist for inhalation NEEDED PER [facility] amiodarone 200 mg tablet 200 mg PO QAM 08/29/23 01/02/24 History Oxygen Home [id number] #1 ea 09/24/23 01/02/24 Rx amlodipine 5 mg tablet 5 mg PO QAM 10/28/23 01/02/24 History apixaban 5 mg tablet (Eliquis) 5 mg PO AMHS 10/28/23 01/02/24 History metoprolol succinate 25 mg 12.5 mg PO AMHS 10/28/23 01/02/24 History tablet,extended release 24 hr mirtazapine 15 mg tablet 15 mg PO HS 10/28/23 01/02/24 History pantoprazole 20 mg tablet,delayed 20 mg PO AMPM 10/28/23 01/02/24 History release albuterol sulfate 90 mcg/actuation 2 inh inhalation Q6H PRN shortness 12/03/23 01/02/24 Rx aerosol inhaler (Ventolin HFA) of breath or wheezing #8.5 grams fluticasone fur. 100 mcg-umeclid 1 inh inhalation QAM #60 ea 12/03/23 01/02/24 Rx 62.5 mcg-vilant 25 mcg inhalat.powder (Trelegy Ellipta) ciprofloxacin HCl 250 mg tablet 250 mg PO BID 01/02/24 01/02/24 History (Cipro) diclofenac sodium 1 % topical gel 4 g topical QID PRN Pain 01/02/24 01/02/24 History oxycodone 5 mg tablet 10 mg PO Q6H PRN Severe Pain 01/02/24 01/02/24 History (Scale Score 7-10) Past Med/Surg History Medical History (Updated 01/02/24 @ 20:17 by Hanh Soria PA-C) MISAEL (acute kidney injury) Hypokalemia Pneumonia Acute respiratory failure with hypoxia and hypercapnia Febrile illness Fall Pneumonia Vertebral artery stenosis 75% stenosis of left vertebral artery per 05/30/2019 neck CTA Traumatic subarachnoid hemorrhage hx - 02/2021? Vertigo Coronary artery disease "diffuse minor CAD by cardiac catheterization 01/27/2019" per [facility] cardio note 06/29/2021 Hip dislocation, left currently in a brace Transient ischemic attack (TIA) possible per cardio note, 02/26/2021-negative CT and MRI imaging-on ASA per cardio with Plavix d/c due to subdural hematoma that subsequently resolved (cleared by neurosurgery [facility]) Macular degeneration Dyspnea Multiple pulmonary nodules determined by computed tomography of lung no further imaging needed given stability from 2019 per [facility] note 07/08/2021 Left bundle branch block chronic per [facility] cardio note-noted post TAVR 05/27/2019 per [facility] cardio note HTN (hypertension) controlled, stable per pt Dyslipidemia CKD (chronic kidney disease), stage III Osteoporosis COPD (chronic obstructive pulmonary disease) follows with [facility], on Trelegy Carotid stenosis 50-69% TONNY 03/12/2019 duplex per [facility] cardio GERD (gastroesophageal reflux disease) controlled, stable per pt Surgical History History of colonoscopy S/P revision of total hip left hip History of cardiac catheterization 05/15/2019 TAVR. 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 Cooking Casing Required: No Beliefs That Will Affect Care: None marital status: Current Living Situation: Alf Current Living Situation Comment: Lives at [facility] Feels Safe at Home: Yes Safety Concerns: Feels Safe At This Time Assistive Devices: Glasses and Walker Review of Systems Review of Systems: All systems reviewed & are unremarkable except as noted in HPI & below Physical Exam Physical Exam: PE per Dr Cleary Results & Data Results & Data Vital Signs (Past 12 Hours) Vital Signs Temp Pulse Resp BP Pulse Ox O2 Del Method O2 Flow Rate 01/02/24 15:00 62 13 107/47 L 96 Nasal Cannula 3 01/02/24 14:42 58 L 14 103/38 L 98 Nasal Cannula 3 01/02/24 14:00 60 18 104/56 L 98 Nasal Cannula 3 01/02/24 13:56 62 14 105/43 L 95 Nasal Cannula 3 01/02/24 13:43 64 01/02/24 13:05 60 16 97 Nasal Cannula 3 01/02/24 12:47 36.7 C 61 20 97/48 L 94 Room Air Laboratory Results Short CBC 01/02/24 Range/Units 13:27 WBC 8.96 (4.8-10.8) K/ul Hgb 8.1 L (12.0-16.0) g/dl Hct 26.0 L (37.0-47.0) % Plt Count 326 (130-400) K/uL BMP 01/02/24 13:27 Sodium 138 Potassium 4.5 Chloride 106 Carbon Dioxide 28 BUN 51 H Creatinine 2.62 H Glucose 116 H Calcium 7.8 L Liver Function 01/02/24 Range/Units 13:27 Total Bilirubin 0.4 (0.2-1.0) mg/dl Direct Bilirubin 0.1 (0-0.2) mg/dl AST 18 (13-39) U/L ALT 16 (7-52) U/L Alkaline Phosphatase 149 H (34-104) U/L Albumin 2.3 L (3.4-5.0) gm/dl Diagnostic Findings Chest X-Ray 01/02/24 13:00 SINGLE VIEW CHEST CLINICAL HISTORY: Dyspnea FINDINGS: An AP upright chest radiograph is compared to study dated 11/02/2023 and correlated with chest CT dated 12/07/2023. The examination is degraded by portable technique and apical lordotic positioning. There is evidence of previous cardiac valve surgery. The heart is enlarged but noting atherosclerotic calcification of the thoracic aorta. The pulmonary vasculature is noncongested. Chronic interstitial thickening is similar to previous. There is a right pleural effusion with right basilar consolidation. Foci of parenchymal scarring are seen throughout both lungs. No pneumothorax is seen. The skeletal structures are osteopenic. The bony thorax is grossly intact. IMPRESSION: 1. Cardiomegaly without radiographic evidence of congestive failure. 2. Small right pleural effusion with right basilar consolidation. ACT 112: Negative or not required by law. Electronically signed by: Riley Hernandez M.D. 01/02/2024 3:09 PM Hip/Pelvis X-Ray 01/02/24 13:17 XR hip LT 2V w pelvis CLINICAL HISTORY: Left hip pain. COMPARISON STUDY: Pelvis and left hip 12/31/2023. FINDINGS: There are bilateral total hip arthroplasties. The hardware is intact. Lumbar spinal fusion hardware is again noted. No acute fracture or dislocation within the pelvis or hips. IMPRESSION: No acute fracture or dislocation within the pelvis or hips. ACT 112: Negative or not required by law. Electronically signed by: Kaiden Yung M.D. 01/02/2024 3:53 PM Abdomen/Pelvis CT 01/02/24 13:[address] WITHOUT CONTRAST CT DOSE: 609.21 mGy.cm HISTORY: llq pain gi bleed TECHNIQUE: Multiaxial CT images of the abdomen and pelvis were performed without contrast. A dose lowering technique was utilized adhering to the principles of ALARA. COMPARISON STUDY: Abdomen and pelvis CT 10/29/2021. FINDINGS: Small right and trace left pleural effusions. Peripheral consolidation within the right lung base favors atelectasis. The left lung base is clear. An aortic valve prosthesis is noted. No pneumoperitoneum. No pneumatosis. There are bilateral total hip arthroplasties. L3-L5 posterior decompression and fusion with pedicle screws and rods. Advanced degenerative changes within the upper lumbar spine. Mild levoscoliosis of the lumbar spine. No acute fractures. Small fat-containing periumbilical hernia. Mild body wall edema. Prior cholecystectomy. The unenhanced liver, spleen, and pancreas are unremarkable. Mild bilateral adrenal gland hyperplasia is noted. Bilateral renal hypodense lesions favor cysts. No hydronephrosis. Mild dilatation of the common bile duct is likely due to the patient's postcholecystectomy state and age. Calcified plaque within the normal caliber abdominal aorta. No retroperitoneal or pelvic lymphadenopathy. No pelvic free fluid. The deep pelvic structures are suboptimally assessed due to the metallic artifact. The bladder appears unremarkable. Prior hysterectomy. Suboptimal evaluation for bowel pathology due to the lack of intravenous and oral contrast. However, there is no definite bowel wall thickening or obstruction. Colonic diverticulosis. No evidence for acute diverticulitis. The appendix is surgically absent. IMPRESSION: 1. No bowel wall thickening or obstruction. 2. Colonic diverticulosis. No evidence for acute diverticulitis. 3. No hydronephrosis. 4. Postoperative changes as described above. 5. Small right and trace left pleural effusions. 6. Additional findings as described above. ACT 112: Negative or not required by law. Electronically signed by: Kaiden Yung M.D. 01/02/2024 3:06 PM ECG Additional Comments: sinus rhythm, rate 63, T wave inversions inferior leads, LBBB (chronic LBBB) Supervising Physician Co-Signing Physician Notes I have seen and discussed the case with the collaborating advanced practitioner. I agree with the above H&P. I have reviewed and confirmed the patients medical history, the findings on physical examination, and the patients diagnosis and treatment plan with Yang LOYOLA and agree with the information documented. Ms. Harris is an 88-year-old female with PMH of chronic hypoxic respiratory failure, chronic diastolic CHF, COPD, remote tobacco use [smoking 2 packs a day x 60 years, quit 7 years ago], pulmonary nodules, pleural effusion, HTN, HLD, CAD, bilateral carotid artery stenosis, severe aortic stenosis, stenosis of left vertebral artery, status post TAVR, LBBB, macular degeneration of right eye, CKD stage III, GERD presenting with acute on chronic anemia. Patient noted to have bloody stool by correction staff. Patient unaware but endorses notable abdominal pain post-prandial. GENERAL APPEARANCE: AxOx2-3, generally well-appearing female, no acute distress. HEENT: NC, AT. MMM. EOMI, clear conjunctiva, oropharynx clear. NECK: Supple without lymphadenopathy. No stiffness or restricted ROM. HEART: Normal rate and regular rhythm, EVELYN+ LUNGS: CTAB generally diminished on NC 3L baseline ABDOMEN: Soft, nondistended with good bowel sounds heard. tender in epigastrium to palpation BACK: No CVAT, no obvious deformity. EXTREMITIES: Without cyanosis, clubbing or edema. NEUROLOGICAL: Grossly nonfocal. Alert and oriented, moving all 4 extremities. CN not formally tested but appear grossly intact. Skin: Warm and dry without any rash. #Acute on chronic anemia, suspect GIB s/p transfusion [address]RBC in ED CT AB/P suboptimal 2/2 lack of constrast, no acute findings, but tender to palpation on exam -NPO Hold eliquis Trend H/H, next draw 2100 Transfuse <7, goal ideally >8 2/2 cardiac history monitor on tele GI consult PPI drip #Paroxysmal A-fib #Calcific aortic stenosis, status post TAVR Hx of afib RVR issues with previous hospitalizations due to pneumonia Continue metoprolol 12.5 mg QID, amiodarone 200 mg daily Hold eliquis 5mg bid Hold Lasix Monitor and replete electrolytes. Consult Cardiology risk/benefits of Eliquis iso GIB #Mild nonobstructive CAD per cardiac catheterization 01/27/2019 #Left bundle branch block noted post TAVR 05/27/2019 #Chronic heart failure with preserved ejection fraction (HFpEF): Diuersis as above when tolerated #MISAEL on CKD III: Chronic, stable, slightly better than baseline currently with Cr of 1.19/BUN 17-likely secondary to trace volume overload, appears baseline Cr. is 1.2-1.4 Nephrology consulted to aid in optimization of diuresis -Declines BPAP use hold lasix po daily nephrology consult #Chronic hypoxic/hypercapnia respiratory failure, multifactorial #Emphysema/COPD #chronic heart failure with preserved EF #Right sided transudative effusion s/p throacentesis Chronic home oxygen of 2-3L Follows Dr. Rhoades Continue home inhalers, Mucinex, incentive spirometer, flutter valve. Back to baseline oxygen requirements Continue lasix po 20mg qam daily Encouraged NIPPV, patient continues to decline #Frequent falls: ongoing issues with falls, PT/OT fall precautions rest of plan as above I spent a total of 45 minutes coordinating, documenting, and providing care for this patient excluding time spent in the performance of separately billed services. All of the aforementioned completed outside of collaborating with the assigned advanced practitioner for a full treatment plan. I have reviewed the advanced practitioner's documentation, and I agree with, and take responsibility for the plan of care
--- NOTE | 2024-01-02 15:55 | XRay Report ---
XR hip LT 2V w pelvis CLINICAL HISTORY: Left hip pain. COMPARISON STUDY: Pelvis and left hip 12/31/2023. FINDINGS: There are bilateral total hip arthroplasties. The hardware is intact. Lumbar spinal fusion hardware is again noted. No acute fracture or dislocation within the pelvis or hips. IMPRESSION: No acute fracture or dislocation within the pelvis or hips. ACT 112: Negative or not required by law. Electronically signed by: Kaiden Yung M.D. 01/02/2024 3:53 PM
[2024-01-02] MEDS ORDERED: SODIUM CHLORIDE 0.9% 250 ML IV PRN (16:03)
[2024-01-02 17:14] LABS: Reticulocyte % 4.21 % (0.50-2.00); Reticulocytes # 0.1 10^6/uL (0.020-0.100)
[2024-01-02 17:37] LABS: Troponin I High Sensitivity 15.6 pg/ml (0-14)
[2024-01-02 17:51] LABS: Ferritin 57.5 ng/ml (8-388)
[2024-01-02 17:54] LABS: Folate (Folic Acid),Ser orPlas 16.7 ng/ml (>5.38)
[2024-01-02] MEDS ORDERED: IPRATROPIUM BROMIDE/ALBUTEROL respimat INH INH PRN (18:31)
[2024-01-02] MEDS ORDERED: Albuterol HFA 8 GM Inhaler (Combivent Respimat P&T Subs) INH PRN (18:42)
[2024-01-02] MEDS ORDERED: Ipratropium HFA Inhaler (Combivent Respimat P&T Subs) INH PRN (18:42)
--- NOTE | 2024-01-02 19:37 | Electrocardiogram Report ---
Test Reason : Blood Pressure : / mmHG Vent. Rate : 063 BPM Atrial Rate : 063 BPM P-R Int : 184 ms QRS Dur : 134 ms QT Int : 474 ms P-R-T Axes : 077 020 191 degrees QTc Int : 485 ms Normal sinus rhythm Left bundle branch block Abnormal ECG When compared with ECG of 28-OCT-2023 14:04, Inverted T waves have replaced nonspecific T wave abnormality in Inferior leads T wave inversion more evident in Lateral leads Confirmed by Isaiah Latham [id number] on 01/02/2024 7:37:34 PM Referred By: Confirmed By:Karel Latham
[2024-01-02] MEDS: ACETAMINOPHEN 1,000 MG/100 ML VIAL IV SCH (19:39)
[2024-01-02] MEDS: SODIUM CHLORIDE 0.9% 1,000 ML IV SCH (19:39)
[2024-01-02] MEDS: cefTRIAXone SODIUM 2,000 MG in DEXTROSE 5 % MINI-B 50 ML IV SCH (19:41)
[2024-01-02] MEDS: ATORVASTATIN 10 MG TAB PO SCH (20:14)
[2024-01-02] MEDS: MIRTAZAPINE TAB 15 MG TAB PO SCH (20:14)
[2024-01-02] MEDS: guaiFENesin 600 MG TABCR PO SCH (20:14)
[2024-01-02] MEDS: METOPROLOL SUCC 25MG EXT REL TAB PO SCH (20:14)
[2024-01-02 21:29] LABS: Hematocrit (blood only) 24.4 % (37.0-47.0); Hemoglobin 7.5 g/dl (12.0-16.0)
--- NOTE | 2024-01-02 22:15 | Emergency Department Note ---
History of Present Illness General Chief Complaint: Abnormal Labs/Diagnostic Testing Stated Complaint: AB PAIN, ABNORMAL LABS Time Seen by Provider: 01/02/24 12:56 History of Present Illness Provider Complaint: abdominal pain Onset (ago): 2 day(s) Pain Consistency: constant Location: [facility] Radiation: LLQ Severity: mild Maximum Pain Intensity: 3 Current Pain Intensity: 3 Quality: + cramping, + stabbing and + sharp Relieved By: + nothing Exacerbated By: + nothing Context: no foreign travel, no possible food poisoning, no sick contacts, no recent antibiotic use, no recent surgery/procedure or no recent injury Associated Symptoms: no nausea, no vomiting, no diarrhea, no fever, no chills, no constipation, no dysuria, no hematemesis, no hematochezia, no melena, no hematuria, no syncope, no headache, no chest pain and no breathing difficulty Nursing reports that the patient was referred here by the senior care for hemoglobin of 6.9. Patient states she is not sure if she is still taking Eliquis. Home Medications Medication Instructions Recorded Confirmed Type meclizine 25 mg chewable tablet 25 mg PO TID PRN Dizziness 12/31/18 01/02/24 History vit C 250 mg-vit E 90 mg-zinc 40 1 tab PO AMHS 05/29/19 01/02/24 History mg-copper 1 ib-[id number] capsule (PreserVision AREDS-2) ondansetron 4 mg disintegrating 4 - 8 mg PO Q8H PRN Nausea 05/16/20 01/02/24 History tablet aspirin 81 mg tablet,delayed 81 mg PO QAM 10/29/21 01/02/24 History release ergocalciferol (vitamin D2) 1,250 50,000 unit PO WK 10/29/21 01/02/24 History mcg (50,000 unit) capsule zolpidem 5 mg tablet (Ambien) 5 mg PO HS PRN Sleep 10/29/21 01/02/24 History fluoxetine 10 mg tablet 10 mg PO QAM 09/27/22 01/02/24 History atorvastatin 10 mg tablet 10 mg PO HS #30 tabs 08/12/23 01/02/24 Rx acetaminophen 325 mg tablet 650 mg PO TID 08/28/23 01/02/24 History (Tylenol) amoxicillin 500 mg capsule 2,000 mg PO DIRECTED PRN 1 HR 12/12/23 04/17/24 History PRIOR TO DENTAL PROCEDURES guaifenesin 600 mg tablet, 600 mg PO AMHS 08/28/23 01/02/24 History extended release 12 hr (Mucinex) ipratropium 20 mcg-albuterol 100 1 puff inhalation QID PRN 08/28/23 01/02/24 History mcg/actuation mist for inhalation NEEDED PER [facility] amiodarone 200 mg tablet 200 mg PO QAM 08/29/23 01/02/24 History Oxygen Home [id number] #1 ea 09/24/23 01/02/24 Rx amlodipine 5 mg tablet 5 mg PO QAM 10/28/23 01/02/24 History apixaban 5 mg tablet (Eliquis) 5 mg PO AMHS 10/28/23 01/02/24 History metoprolol succinate 25 mg 12.5 mg PO AMHS 10/28/23 01/02/24 History tablet,extended release 24 hr mirtazapine 15 mg tablet 15 mg PO HS 10/28/23 01/02/24 History pantoprazole 20 mg tablet,delayed 20 mg PO AMPM 10/28/23 01/02/24 History release albuterol sulfate 90 mcg/actuation 2 inh inhalation Q6H PRN shortness 12/03/23 01/02/24 Rx aerosol inhaler (Ventolin HFA) of breath or wheezing #8.5 grams fluticasone fur. 100 mcg-umeclid 1 inh inhalation QAM #60 ea 12/03/23 01/02/24 Rx 62.5 mcg-vilant 25 mcg inhalat.powder (Trelegy Ellipta) ciprofloxacin HCl 250 mg tablet 250 mg PO BID 01/02/24 01/02/24 History (Cipro) diclofenac sodium 1 % topical gel 4 g topical QID PRN Pain 01/02/24 01/02/24 History oxycodone 5 mg tablet 10 mg PO Q6H PRN Severe Pain 01/02/24 01/02/24 History (Scale Score 7-10) Allergies Allergy/AdvReac Type Severity Reaction Status Date / Time Sulfa (Sulfonamide Allergy Severe SHORT OF Verified 01/02/24 16:21 Antibiotics) BREATH, ITCHING PER [facility] atenolol AdvReac Intermediate STOMACH Verified 01/02/24 16:21 PAIN PER [facility] lisinopril AdvReac Intermediate HYPERKALEMIA Verified 01/02/24 16:21 PER [facility] Past Med/Surg History Medical History MISAEL (acute kidney injury) Hypokalemia Pneumonia Acute respiratory failure with hypoxia and hypercapnia Febrile illness Fall Pneumonia Vertebral artery stenosis 75% stenosis of left vertebral artery per 05/30/2019 neck CTA Traumatic subarachnoid hemorrhage hx - 02/2021? Vertigo Coronary artery disease "diffuse minor CAD by cardiac catheterization 01/27/2019" per [facility] cardio note 06/29/2021 Hip dislocation, left currently in a brace Transient ischemic attack (TIA) possible per cardio note, 02/26/2021-negative CT and MRI imaging-on ASA per cardio with Plavix d/c due to subdural hematoma that subsequently resolved (cleared by neurosurgery [facility]) Macular degeneration Dyspnea Multiple pulmonary nodules determined by computed tomography of lung no further imaging needed given stability from 2019 per [facility] note 07/08/2021 Left bundle branch block chronic per [facility] cardio note-noted post TAVR 05/27/2019 per [facility] cardio note HTN (hypertension) controlled, stable per pt Dyslipidemia CKD (chronic kidney disease), stage III Osteoporosis COPD (chronic obstructive pulmonary disease) follows with [facility], on Trelegy Carotid stenosis 50-69% TONNY 03/12/2019 duplex per [facility] cardio GERD (gastroesophageal reflux disease) controlled, stable per pt Surgical History History of colonoscopy S/P revision of total hip left hip History of cardiac catheterization 05/15/2019 TAVR. 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 Bearden at [facility], 02/26/2021-normal gradient S/P tonsillectomy and adenoidectomy History of cataract surgery RT/LEFT H/O hernia repair RT INGUINAL HERNIA History of hysterectomy Family History Other No family history of adverse response to anesthesia Stroke Social History Smoking Status: Former smoker Tobacco Type: Cigarettes Smoking End Date: 15 years ago; Second Hand Exposure: Yes (son smokes); Do You Dip or Chew Tobacco: No; Hx Alcohol Use: No Hx Substance Use: No Preferred Language: Kinyarwanda Communication Ability: Effective Consulting Practice Director Required: No Beliefs That Will Affect Care: None marital status: Current Living Situation: Jail Current Living Situation Comment: Lives at [facility] Feels Safe at Home: Yes Safety Concerns: Feels Safe At This Time Assistive Devices: Glasses and Walker Physical Exam 2 Vital Signs: Vital Signs - 24 hr 01/02/24 12:47 01/02/24 13:05 01/02/24 13:43 Temperature 36.7 C Temperature Source Oral Pulse Rate 61 60 64 Pulse Rate from Sp O2 Sensor Pulse Rhythm Regular Pulse Strength Normal Respiratory Rate 20 16 Respiratory Effort / Characteristics Non-Labored Sponta neous Respiratory Depth Normal Respiratory Patter n Regular Blood Pressure 97/48 L Blood Pressure Ilda n 64 Blood Pressure Pos ition Sitting Pulse Oximetry 94 97 Oxygen Delivery Me thod Room Air Nasal Cannula Oxygen Flow Rate 3 Sepsis Recent Feve r Within 48 Hours No Sepsis New/Unexpla ined Change in Men nano Status No Sepsis Action Take n by Nursing No Action Required 01/02/24 13:56 01/02/24 14:00 01/02/24 14:42 Temperature Temperature Source Pulse Rate 62 60 58 L Pulse Rate from Sp O2 Sensor 62 61 Pulse Rhythm Pulse Strength Respiratory Rate 14 18 14 Respiratory Effort / Characteristics Respiratory Depth Respiratory Patter n Blood Pressure 105/43 L 104/56 L 103/38 L Blood Pressure Ilda n 63 72 59 Blood Pressure Pos ition Pulse Oximetry 95 98 98 Oxygen Delivery Me thod Nasal Cannula Nasal Cannula Nasal Cannula Oxygen Flow Rate 3 3 3 Sepsis Recent Feve r Within 48 Hours Sepsis New/Unexpla ined Change in Men nano Status Sepsis Action Take n by Nursing 01/02/24 15:00 01/02/24 15:30 01/02/24 16:00 Temperature Temperature Source Pulse Rate 62 55 L 58 L Pulse Rate from Sp O2 Sensor 62 55 L 58 L Pulse Rhythm Pulse Strength Respiratory Rate 13 12 19 Respiratory Effort / Characteristics Respiratory Depth Respiratory Patter n Blood Pressure 107/47 L 95/42 L 107/46 L Blood Pressure Ilda n 67 59 66 Blood Pressure Pos ition Pulse Oximetry 96 100 100 Oxygen Delivery Me thod Nasal Cannula Nasal Cannula Room Air Oxygen Flow Rate 3 3 3 Sepsis Recent Feve r Within 48 Hours Sepsis New/Unexpla ined Change in Men nano Status Sepsis Action Take n by Nursing Physical Exam: Physical Exam GENERAL: She is oriented to person, place, and time. She appears well-developed and well-nourished. She does not appear distressed. HENT: Exam performed. -Head: Normocephalic and atraumatic. -Right Ear: External ear normal. No mastoid erythema -Left Ear: External ear normal. No mastoid erythema -Mouth/Throat: The oropharynx is clear and moist. No trismus in the jaw. No dental abscesses or uvula swelling. No oropharyngeal exudate or tonsillar abscesses. EYES: Conjunctivae and EOM are normal.Right eye exhibits no discharge. Left eye exhibits no discharge. No scleral icterus. NECK: Normal range of motion. Neck supple. No JVD present. No tracheal deviation and normal range of motion present. CV: Normal rate, regular rhythm, normal heart sounds and intact distal pulses. There is no peripheral edema. Palpable radial pulses bue. PULM/CHEST: Effort normal and breath sounds normal. No respiratory distress. No stridor. She has no wheezes. She has no rales. -Chest Wall: She exhibits no tenderness. ABD: The abdomen is soft. Bowel sounds are normal. She has no distension. No mass is present. There is tenderness to palpation of the left upper quadrant and left lower quadrant. There is no rebound, no guarding, no Rouse's sign and no tenderness at McBurney's point. Rovsig negative Rectal: Performed with female nursing cross tie tram loader Lynda at bedside. Hemoccult positive. MUSC/SKEL: Pain on palpation of the left hip. NEURO: Motor and sensation grossly intact. SKIN: Skin is warm and dry. She is not diaphoretic. PSYCH: She has a normal mood and affect. Behavior is normal. Judgment and thought content normal. Course Course 1256: The patient was evaluated in room B9. A complete history and physical exam was performed Cardiac monitoring: An order was placed for continuous cardiac monitoring. The monitor shows a rate of 60 with sinus rhythm interpreted by me Protonix bolus and drip started on the patient. 1520: Vital signs stable. Repeat labs in the emergency department today show hemoglobin of 8.1. Creatinine at baseline. High-sensitivity troponin 17.2. Patient is currently denying any chest pain or difficulty breathing. Elevated troponin could be due to the patient's CKD. [facility] and further evaluation by GI for her GI bleed. Administered Medications Atorvastatin Calcium (Atorvastatin 10 Mg Tab) 10 mg PO [facility] Stop: 02/01/24 20:59 Last Admin: 01/02/24 20:14 Dose: 10 mg Documented By: BRAYAN Guaifenesin (Guaifenesin 600 Mg Tabcr) 600 mg PO [facility] Stop: 02/01/24 20:59 Last Admin: 01/02/24 20:14 Dose: 600 mg Documented By: ANNELIESER Pantoprazole Sodium 40 mg/ (Dextrose) 100 mls @ 20 mls/hr IV Q5H [facility] Stop: 02/01/24 18:59 Last Admin: 01/02/24 18:57 Dose: 8 mg/hr, 20 mls/hr Documented By: TMP Acetaminophen (Ofirmev) 1,000 mg in 100 mls @ 400 mls/hr IV Q8H [facility] Stop: 01/03/24 18:59 Last Infusion: 01/02/24 19:58 Dose: Infused Documented By: Admin: 01/02/24 19:39 Dose: 400 mls/hr Documented By: ANNELIESER Ceftriaxone Sodium 2,000 mg/ (Dextrose) 50 mls @ 100 mls/hr IV Q24H [facility]; Protocol Stop: 01/04/24 18:59 Last Infusion: 01/02/24 20:14 Dose: Infused Documented By: Admin: 01/02/24 19:41 Dose: 100 mls/hr Documented By: SJR Sodium Chloride (Nss) 1,000 mls @ 80 mls/hr IV .[id number] [facility] Stop: 01/03/24 07:00 Last Admin: 01/02/24 19:39 Dose: 80 mls/hr Documented By: BRAYAN Metoprolol Succinate (Metoprolol Succ 25mg Ext Rel Tab) 12.5 mg PO [facility] Stop: 02/01/24 20:59 Last Admin: 01/02/24 20:14 Dose: 12.5 mg Documented By: BRAYAN Mirtazapine (Mirtazapine Tab 15 Mg Tab) 15 mg PO [facility] Stop: 02/01/24 20:59 Last Admin: 01/02/24 20:14 Dose: 15 mg Documented By: BRAYAN Discontinued Medications Pantoprazole Sodium 80 mg/ (Dextrose) 120 mls @ 480 mls/hr IV NOW ONE Stop: 01/02/24 13:32 Last Infusion: 01/02/24 14:02 Dose: Infused Documented By: Admin: 01/02/24 13:38 Dose: 480 mls/hr Documented By: MIGUEL Pantoprazole Sodium 40 mg/ (Dextrose) 100 mls @ 20 mls/hr IV Q5H [facility] Stop: 02/01/24 13:44 Last Infusion: 01/02/24 19:22 Dose: Infused Documented By: Admin: 01/02/24 14:10 Dose: 8 mg/hr, 20 mls/hr Documented By: MIGUEL Pantoprazole Sodium (Pantoprazole Bolus/Drip) 1 each IV NOW STA Stop: 01/02/24 13:19 Last Admin: 01/02/24 13:40 Dose: Not Given Documented By: MIGUEL Medical Decision Making Laboratory Data Attestation: I reviewed the patient's lab results. 01/02/24 20:57 01/02/24 13:27 Lab Results 01/02/24 01/02/24 Range/Units 13:27 13:33 WBC 8.96 (4.8-10.8) K/ul RBC 2.43 L (4.20-5.40) M/uL Hgb 8.1 L (12.0-16.0) g/dl POC Hgb 9.2 L (12.0-16.0) g/dl Hct 26.0 L (37.0-47.0) % POC Hct 27 L (37-47) % MCV 107.0 H (80.0-100.0) fL MCH 33.3 (25.0-34.0) pg MCHC 31.2 L (32.0-36.0) g/dL RDW Std Deviation 72.4 H (36.4-46.3) fL RDW Coeff of [place] 18.4 H (11.5-14.5) % Plt Count 326 (130-400) K/uL MPV 10.2 (9.4-12.4) fL Immature Gran % (Auto) 0.6 % Neut % (Auto) 85.1 % Lymph % (Auto) 6.0 % [place] % (Auto) 8.3 % Eos % (Auto) 0.0 % Baso % (Auto) 0.0 % Neut # (Auto) 7.63 H (1.40-6.50) K/uL Lymph # (Auto) 0.54 L (1.20-3.40) K/uL [place] # (Auto) 0.74 H (0.11-0.59) K/uL Eos # (Auto) 0.00 (0.00-0.50) K/uL Baso # (Auto) 0.00 (0.00-0.20) K/uL Immature Gran # (Auto) 0.05 (0.01-0.20) K/uL PT 13.9 H (9.0-12.0) Seconds INR 1.3 H (0.9-1.1) APTT 37 H (21-31) Seconds PTT Ratio 1.3 POC Sodium 136 (135-144) mmol/L Sodium 138 (136-145) mmol/L POC Potassium 4.8 (3.3-5.0) mmol/L Potassium 4.5 (3.5-5.1) mmol/L POC Chloride 103 (101-112) mmol/L Chloride 106 (98-107) mmol/L Carbon Dioxide 28 (21-32) mmol/L POC Total CO2 28 (24-31) mmol/L Anion Gap 4 (3-11) POC Anion Gap 10.0 L (16-25) mmol/L POC BUN 54 H (7-18) mg/dl BUN 51 H (6-23) mg/dl Creatinine 2.62 H (0.6-1.2) mg/dl POC Creatinine 3.2 H (0.6-1.3) mg/dl Est Cr Clr Drug Dosing 15.3 ml/min Est GFR ( Amer) 18.3 ml/min Est GFR (Non-Af Amer) 15.8 ml/min BUN/Creatinine Ratio 19.5 (10-20) Glucose 116 H (70-99(Fasting)) mg/dl POC Glucose (other) 112 H (70-99) mg/dl Calcium 7.8 L (8.6-10.3) mg/dl POC Ioniz Calcium De 1.08 L (1.12-1.32) mmol/l Magnesium 2.9 H (1.7-2.4) mg/dl Total Bilirubin 0.4 (0.2-1.0) mg/dl Direct Bilirubin 0.1 (0-0.2) mg/dl AST 18 (13-39) U/L ALT 16 (7-52) U/L Alkaline Phosphatase 149 H (34-104) U/L Troponin I High Sens 17.2 H (0-14) pg/ml Total Protein 4.9 L (6.0-8.3) gm/dl Albumin 2.3 L (3.4-5.0) gm/dl Lipase 20 (11-82) U/L Blood Type O Positive Antibody Screen NEGATIVE Crossmatch See Detail Imaging Data Radiologist's Impression: Chest X-Ray 01/02/24 13:00 SINGLE VIEW CHEST CLINICAL HISTORY: Dyspnea FINDINGS: An AP upright chest radiograph is compared to study dated 11/02/2023 and correlated with chest CT dated 12/07/2023. The examination is degraded by portable technique and apical lordotic positioning. There is evidence of previous cardiac valve surgery. The heart is enlarged but noting atherosclerotic calcification of the thoracic aorta. The pulmonary vasculature is noncongested. Chronic interstitial thickening is similar to previous. There is a right pleural effusion with right basilar consolidation. Foci of parenchymal scarring are seen throughout both lungs. No pneumothorax is seen. The skeletal structures are osteopenic. The bony thorax is grossly intact. IMPRESSION: 1. Cardiomegaly without radiographic evidence of congestive failure. 2. Small right pleural effusion with right basilar consolidation. ACT 112: Negative or not required by law. Electronically signed by: Riley Hernandez M.D. 01/02/2024 3:09 PM Hip/Pelvis X-Ray 01/02/24 13:17 XR hip LT 2V w pelvis CLINICAL HISTORY: Left hip pain. COMPARISON STUDY: Pelvis and left hip 12/31/2023. FINDINGS: There are bilateral total hip arthroplasties. The hardware is intact. Lumbar spinal fusion hardware is again noted. No acute fracture or dislocation within the pelvis or hips. IMPRESSION: No acute fracture or dislocation within the pelvis or hips. ACT 112: Negative or not required by law. Electronically signed by: Kaiden Yung M.D. 01/02/2024 3:53 PM Abdomen/Pelvis CT 01/02/24 13:[address] WITHOUT CONTRAST CT DOSE: 609.21 mGy.cm HISTORY: llq pain gi bleed TECHNIQUE: Multiaxial CT images of the abdomen and pelvis were performed without contrast. A dose lowering technique was utilized adhering to the principles of ALARA. COMPARISON STUDY: Abdomen and pelvis CT 10/29/2021. FINDINGS: Small right and trace left pleural effusions. Peripheral consolidation within the right lung base favors atelectasis. The left lung base is clear. An aortic valve prosthesis is noted. No pneumoperitoneum. No pneumatosis. There are bilateral total hip arthroplasties. L3-L5 posterior decompression and fusion with pedicle screws and rods. Advanced degenerative changes within the upper lumbar spine. Mild levoscoliosis of the lumbar spine. No acute fractures. Small fat-containing periumbilical hernia. Mild body wall edema. Prior cholecystectomy. The unenhanced liver, spleen, and pancreas are unremarkable. Mild bilateral adrenal gland hyperplasia is noted. Bilateral renal hypodense lesions favor cysts. No hydronephrosis. Mild dilatation of the common bile duct is likely due to the patient's postcholecystectomy state and age. Calcified plaque within the normal caliber abdominal aorta. No retroperitoneal or pelvic lymphadenopathy. No pelvic free fluid. The deep pelvic structures are suboptimally assessed due to the metallic artifact. The bladder appears unremarkable. Prior hysterectomy. Suboptimal evaluation for bowel pathology due to the lack of intravenous and oral contrast. However, there is no definite bowel wall thickening or obstruction. Colonic diverticulosis. No evidence for acute diverticulitis. The appendix is surgically absent. IMPRESSION: 1. No bowel wall thickening or obstruction. 2. Colonic diverticulosis. No evidence for acute diverticulitis. 3. No hydronephrosis. 4. Postoperative changes as described above. 5. Small right and trace left pleural effusions. 6. Additional findings as described above. ACT 112: Negative or not required by law. Electronically signed by: Kaiden Yung M.D. 01/02/2024 3:06 PM ECG Data Attestation: I personally reviewed and interpreted this ECG as follows: Additional Comments: Sinus rhythm with a rate of 63. OR 184 QRS 134 QTc 485. Left bundle branch block present. sgarbosa negative. MDM Narrative 1256: The patient was evaluated in room B9. A complete history and physical exam was performed Cardiac monitoring: An order was placed for continuous cardiac monitoring. The monitor shows a rate of 60 with sinus rhythm interpreted by me Protonix bolus and drip started on the patient. 1520: Vital signs stable. Repeat labs in the emergency department today show hemoglobin of 8.1. Creatinine at baseline. High-sensitivity troponin 17.2. Patient is currently denying any chest pain or difficulty breathing. Elevated troponin could be due to the patient's CKD. [facility] and further evaluation by GI for her GI bleed. Impression & Plan GI bleed Discharge Plan Visit Data Chief Complaint: Abnormal Labs/Diagnostic Testing Stated Complaint: AB PAIN, ABNORMAL LABS ED Provider: Jared Glez Discharge Problem: GI bleed Patient Disposition: Admitted As Inpatient Discharge Instructions Interventions: ED Discharge Assessment Last Done: 01/02/24 17:55 Discharge Problem: GI bleed Qualifiers: GI bleed type/associated pathology: unspecified gastrointestinal hemorrhage type Qualified Code(s): K92.2 - Gastrointestinal hemorrhage, unspecified
[2024-01-02] MEDS: ONDANSETRON INJ 2 MG/ML 2 ML VIAL IV PRN (22:37)
[2024-01-03 07:34] LABS: Basophils # (auto) 0.01 K/uL (0.00-0.20); Basophils % (auto) 0.1 %; Eosinophils # (auto) 0.03 K/uL (0.00-0.50); Eosinophils % (auto) 0.3 %; Hematocrit (blood only) 25.9 % (37.0-47.0); Hemoglobin 7.7 g/dl (12.0-16.0); Immature Granulocytes # (auto) 0.05 K/uL (0.01-0.20); Immature Granulocytes % (auto) 0.5 %; Lymphocytes # (auto) 0.51 K/uL (1.20-3.40); Lymphocytes % (auto) 5.1 %; Mean Corpuscular Hemoglobin 32.4 pg (25.0-34.0); Mean Corpuscular Hgb Conc 29.7 g/dL (32.0-36.0); Mean Corpuscular Volume 108.8 fL (80.0-100.0); Mean Platelet Volume 10.1 fL (9.4-12.4); Monocytes # (auto) 0.94 K/uL (0.11-0.59); Monocytes % (auto) 9.4 %; Neutrophils # (auto) 8.45 K/uL (1.40-6.50); Neutrophils % (auto) 84.6 %; Platelet Count 277 K/uL (130-400); RDW Coefficient of Variation 18.1 % (11.5-14.5); RDW Standard Deviation 72.2 fL (36.4-46.3); Red Blood Count 2.38 M/uL (4.20-5.40); White Blood Count 9.99 K/ul (4.8-10.8)
--- NOTE | 2024-01-03 07:51 | Cardiology Consultation ---
Date of Consultation January 03, 2024 Assessment & Plan (1) GI bleed: (2) Anemia due to blood loss: (3) Elevated troponin: (4) Paroxysmal atrial fibrillation: (5) Chronic heart failure with preserved ejection fraction (HFpEF): (6) Coronary artery disease: (7) S/P TAVR (transcatheter aortic valve replacement): (8) COPD (chronic obstructive pulmonary disease) with emphysema: Plan IMPRESSION: Medically complex 88 year old female presents with symptomatic blood loss anemia with a presenting hgb of 6.9. On Eliquis due to history of PAF in the setting of PNA and anaplasmosis. Also carries history of nonobstructive CAD, TAVR, TIA-- on ASA 81 mg daily PLAN: PAF: No known reoccurrence of PAF-- on rhythm control with amiodarone. Rate control with metoprolol succinate. Continue History of traumatic subarachnoid hemorrhage of DAPT. -Given symptomatic anemia and active GIB risk of continuation of Eliquis outweighs the benefit. Okay to hold at this time. Patient in agreement. -Continue to monitor on telemetry while inpatient -K goal of 4.0 and mag goal of 2.0, replace as needed. Chronic HFpEF: Patient appears hypervolemic on exam with evidence of lower extremity edema and orthopnea. It is not clear what her baseline edema looks like. Normally maintains on low dose Lasix 20 mg MWF only. Received IVF due to renal dysfunction. Scr remains elevated above baseline (2.6) Appreciate nephrology recommendations. -Currently NPO, when able to eat recommend 2g sodium restriction -Strict I&O and daily weights. CAD: Nonobstructive per cath 01/2019 Stable, no angina. Elevated troponin likely in the setting of demand given symptomatic blood loss anemia and MISAEL. -Resume ASA when clinically stable. -Continue Statin S/p TAVR: Status post TAVR (# 23 mm Aldridge Brice S3 valve), 05/16/2019 TAVR gradients stable per most recent echo 10/2023 Left bundle branch block noted post TAVR 05/27/2019. -Resume ASA when clinically stable. GIB/Anemia: Hgb 6.9>>8.1>>7.5>>7.7 On PPI Management per primary service and GI-- appreciate GI recommendations. Case discussed with Dr. Miranda. Further recommendations pending assessment. I spent a total of 40 minutes on the date of service in preparation, delivery, and documentation of the care provided to the patient excluding any time spent in the performance of separately billed services. ERWIN Albrecht Department of Cardiology, [facility] This chart was completed in part utilizing Speech Voice Recognition Software. Grammatical errors, random word insertions, pronoun errors, and incomplete sentences are an occasional consequence of this system due to software limitations, ambient noise, and hardware issues. Any formal questions or concerns about the content, text, or information contained within the body of this dictation should be directly addressed to the provider for clarification. Supervising Physician Co-Signing Physician Notes Patient was seen and examined personally. Assessment and plan as outlined above. Care and management discussed in detail with advanced provider and plan personally endorsed Complex 88-year-old female who presents with nausea emesis abdominal pain and symptomatic blood loss anemia. Acute renal insufficiency on laboratory testing Prior gastric antral ulcers on EGD September 2022 Plan as above hold/stop aspirin and Eliquis. Will address long-term needs for antiplatelet and anticoagulant therapies as clinical course progresses. Risks far outweigh benefits at this time. Suspect patient may benefit from single agent antiplatelet therapy in the future with clopidogrel I spent a total of 20 minutes on the date of service in preparation, delivery, and documentation of the care provided to the patient excluding any time spent in the performance of separately billed services. History of Present Illness Reason for Consultation: Anemia, on Eliquis Requesting Physician: Fadia hospitalist Attending Physician: Ynes Cevallos MD History of Present Illness 88-year-old female who presented to [facility] emergency department after obtaining blood work results. Patient was found to be anemic with a hemoglobin of 6.9. She denies any recent episodes of bleeding however [facility]. She has been weak and fatigued and also having some positional dizziness. Patient noted to have a heme positive stool in the ER. Started on IV Protonix. Aspirin and Eliquis held. GI consulted. Increase in her serum creatinine of 2.6, baseline around 1.2. Treated with IV fluids. Repeat this am 2.63 (unchanged) CBC: 6.9>>8.1>>7.5>>7.7. Looking through outpatient records prior to September baseline hemoglobin was between 10 and 12. However, since that time in the [facility] it appears that her hemoglobin has been declining and averaging in the 8-9 range. High-sensitivity troponin mildly elevated but flat, 15 >> 17. EKG: NSR with LBBB, 63 bpm Tele: SR with IVCD 60-70s I/O: + 1.5L Weight: 59 kg >> 62 kg Upon entrance into the room patient resting in bed. Feels poorly. No acute distress. Somewhat of a poor historian. Feels week and fatigued. Notes ongoing nausea and feeling as though she needs to vomit, but has not. Abdomen is tender to touch. No chest pain. Notes dyspnea with any exertion-- does not believe it is much worse than her baseline. +chronic orthopnea. Utilizing supplemental o2 (3L) Legs swollen, unable to verbalize if this is new or not. Outpatient cardiac medications include: Amiodarone 200 mg daily Amlodipine 5 mg daily Eliquis 5 mg twice daily Aspirin 81 mg daily atorvastatin 10 mg daily Furosemide 20 mg Sunday only Metoprolol succinate 12.5 mg twice daily Primary outpatient strategic insights lead: Dr. Singh Past medical history: 1.Mild nonobstructive CAD per cardiac catheterization 01/27/2019 2.Calcific aortic stenosis, status post TAVR (# 23 mm Aldridge Brice S3 valve), 05/16/2019 a.Left bundle branch block noted post TAVR 05/27/2019 3.Carotid artery stenosis, less than 50% stenosis BL, per duplex 06/2023 4.CKD stage 3 5.COPD with chronic hypoxic respiratory failure (3L NC) , Former smoker- quit in 2014 6.Hypertension 7.Dyslipidemia, LDL goal below 70 8.Chronic diastolic CHF 9.GERD 10.History of TIA 11.History of syncope--No concerning dysrhythmias noted on Zio 05/2021 12.History of traumatic subarachnoid hemorrhage in the setting of dual anti- platelet therapy with aspirin and Plavix 13.Paroxysmal atrial fibrillation, diagnosed in the setting of pneumonia and anaplasmosis, 07/2023 a.Self converted to normal sinus rhythm and placed on amiodarone for prevention. b.[id number] score of 8 (age 3, female, HTN, CAD, TIA 2, CHF) , on reduced dose Eliquis for age and renal function Allergies Allergy/AdvReac Type Severity Reaction Status Date / Time Sulfa (Sulfonamide Allergy Severe SHORT OF Verified 04/17/24 16:21 Antibiotics) BREATH, ITCHING PER [facility] atenolol AdvReac Intermediate STOMACH Verified 01/02/24 16:21 PAIN PER [facility] lisinopril AdvReac Intermediate HYPERKALEMIA Verified 01/02/24 16:21 PER [facility] Home Medications Medication Instructions Recorded Confirmed Type meclizine 25 mg chewable tablet 25 mg PO TID PRN Dizziness 12/31/18 01/02/24 History vit C 250 mg-vit E 90 mg-zinc 40 1 tab PO AMHS 05/29/19 01/02/24 History mg-copper 1 [id number] capsule (PreserVision AREDS-2) ondansetron 4 mg disintegrating 4 - 8 mg PO Q8H PRN Nausea 05/16/20 01/02/24 History tablet aspirin 81 mg tablet,delayed 81 mg PO QAM 10/29/21 01/02/24 History release ergocalciferol (vitamin D2) 1,250 50,000 unit PO WK 10/29/21 01/02/24 History mcg (50,000 unit) capsule zolpidem 5 mg tablet (Ambien) 5 mg PO HS PRN Sleep 10/29/21 01/02/24 History fluoxetine 10 mg tablet 10 mg PO QAM 09/27/22 01/02/24 History atorvastatin 10 mg tablet 10 mg PO HS #30 tabs 08/12/23 01/02/24 Rx acetaminophen 325 mg tablet 650 mg PO TID 08/28/23 01/02/24 History (Tylenol) amoxicillin 500 mg capsule 2,000 mg PO DIRECTED PRN 1 HR 08/28/23 01/02/24 History PRIOR TO DENTAL PROCEDURES guaifenesin 600 mg tablet, 600 mg PO AMHS 08/28/23 01/02/24 History extended release 12 hr (Mucinex) ipratropium 20 mcg-albuterol 100 1 puff inhalation QID PRN 08/28/23 01/02/24 History mcg/actuation mist for inhalation NEEDED PER [facility] amiodarone 200 mg tablet 200 mg PO QAM 08/29/23 01/02/24 History Oxygen Home [id number] #1 ea 09/24/23 01/02/24 Rx amlodipine 5 mg tablet 5 mg PO QAM 10/28/23 01/02/24 History apixaban 5 mg tablet (Eliquis) 5 mg PO AMHS 10/28/23 01/02/24 History metoprolol succinate 25 mg 12.5 mg PO AMHS 10/28/23 01/02/24 History tablet,extended release 24 hr mirtazapine 15 mg tablet 15 mg PO HS 10/28/23 01/02/24 History pantoprazole 20 mg tablet,delayed 20 mg PO AMPM 10/28/23 01/02/24 History release albuterol sulfate 90 mcg/actuation 2 inh inhalation Q6H PRN shortness 12/03/23 01/02/24 Rx aerosol inhaler (Ventolin HFA) of breath or wheezing #8.5 grams fluticasone fur. 100 mcg-umeclid 1 inh inhalation QAM #60 ea 12/03/23 01/02/24 Rx 62.5 mcg-vilant 25 mcg inhalat.powder (Trelegy Ellipta) ciprofloxacin HCl 250 mg tablet 250 mg PO BID 01/02/24 01/02/24 History (Cipro) diclofenac sodium 1 % topical gel 4 g topical QID PRN Pain 01/02/24 01/02/24 History oxycodone 5 mg tablet 10 mg PO Q6H PRN Severe Pain 01/02/24 01/02/24 History (Scale Score 7-10) Patient History Medical History MISAEL (acute kidney injury) Hypokalemia Pneumonia Acute respiratory failure with hypoxia and hypercapnia Febrile illness Fall Pneumonia Vertebral artery stenosis 75% stenosis of left vertebral artery per 05/30/2019 neck CTA Traumatic subarachnoid hemorrhage hx - 02/2021? Vertigo Coronary artery disease "diffuse minor CAD by cardiac catheterization 01/27/2019" per [facility] cardio note 06/29/2021 Hip dislocation, left currently in a brace Transient ischemic attack (TIA) possible per cardio note, 02/26/2021-negative CT and MRI imaging-on ASA per cardio with Plavix d/c due to subdural hematoma that subsequently resolved (cleared by neurosurgery [facility]) Macular degeneration Dyspnea Multiple pulmonary nodules determined by computed tomography of lung no further imaging needed given stability from 2019 per [facility] pulm note 07/08/2021 Left bundle branch block chronic per S cardio note-noted post TAVR 05/27/2019 per [facility] cardio note HTN (hypertension) controlled, stable per pt Dyslipidemia CKD (chronic kidney disease), stage III Osteoporosis COPD (chronic obstructive pulmonary disease) follows with [facility] espino, on Trelegy Carotid stenosis 50-69% TONNY 03/12/2019 duplex per [facility] cardio GERD (gastroesophageal reflux disease) controlled, stable per pt Surgical History History of colonoscopy S/P revision of total hip left hip History of cardiac catheterization 05/15/2019 TAVR. 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 Bearden at [facility], 02/26/2021-normal gradient S/P tonsillectomy and adenoidectomy History of cataract surgery RT/LEFT H/O hernia repair RT INGUINAL HERNIA History of hysterectomy Family History Other No family history of adverse response to anesthesia Stroke Social History Smoking Status: Former smoker Tobacco Type: Cigarettes Smoking End Date: 15 years ago; Second Hand Exposure: Yes (son smokes); Do You Dip or Chew Tobacco: No; Hx Alcohol Use: No Hx Substance Use: No Preferred Language: Italian Communication Ability: Effective Precision Grinder Required: No Beliefs That Will Affect Care: None marital status: Current Living Situation: [facility] Current Living Situation Comment: Lives at [facility] Feels Safe at Home: Yes Safety Concerns: Feels Safe At This Time Assistive Devices: Glasses and Walker Review of Systems Review of Systems: All systems reviewed & are unremarkable except as noted in HPI & below Physical Exam Constitutional: + ill appearing; no acute distress Neck: normal visual inspection and trachea midline Respiratory: normal respiratory effort; no respiratory distress and no cough Auscultation: + diminished lung sounds and + rales; no rhonchi and no wheezes Cardiovascular: Rate/Rhythm: regular rate and regular rhythm Heart Sounds: normal S1, normal S2 and + murmur (+2/6 systolic murmur) Vessels: + JVD Extremities: + edema (+3 BLLE pitting edema. ) Gastrointestinal (Abdomen): Percussion/Palpation: + abdomen tender and abdomen soft Skin: no rashes, warm and dry Neurologic: PERRL, EOMI, accommodation nl, no face palsy, no dysarthria Psychiatric: Orientation: alert and oriented x 3 Results & Data Vital Signs (Past 12 Hours) Vital Signs Temp Pulse Pulse Resp BP Pulse Ox O2 Del Method 01/03/24 07:00 60 01/03/24 03:55 36.5 C 70 18 100/62 94 Nasal Cannula 01/02/24 22:28 36.7 C 59 L 18 101/44 L 100 Nasal Cannula O2 Flow Rate 01/03/24 07:00 01/03/24 03:55 3 01/02/24 22:28 3 Laboratory Results Cardiac Enzymes 01/02/24 01/02/24 01/02/24 Range/Units 13:27 16:48 20:57 AST 18 (13-39) U/L Troponin I High Sens 17.2 H 15.6 H 16.1 H (0-14) pg/ml Coagulation 01/02/24 Range/Units 13:27 PT 13.9 H (9.0-12.0) Seconds APTT 37 H (21-31) Seconds CBC 01/02/24 01/02/24 01/03/24 Range/Units 13:27 20:57 07:05 WBC 8.96 9.99 (4.8-10.8) K/ul RBC 2.43 L 2.38 L (4.20-5.40) M/uL Hgb 8.1 L 7.5 L 7.7 L (12.0-16.0) g/dl Hct 26.0 L 24.4 L 25.9 L (37.0-47.0) % Plt Count 326 277 (130-400) K/uL Neut # (Auto) 7.63 H 8.45 H (1.40-6.50) K/uL Lymph # (Auto) 0.54 L 0.51 L (1.20-3.40) K/uL Lee # (Auto) 0.74 H 0.94 H (0.11-0.59) K/uL Eos # (Auto) 0.00 0.03 (0.00-0.50) K/uL Baso # (Auto) 0.00 0.01 (0.00-0.20) K/uL Comprehensive Metabolic Panel 01/02/24 01/03/24 Range/Units 13:27 07:05 Sodium 138 136 (136-145) mmol/L Potassium 4.5 4.3 (3.5-5.1) mmol/L Chloride 106 106 (98-107) mmol/L Carbon Dioxide 28 25 (21-32) mmol/L BUN 51 H 54 H (6-23) mg/dl Creatinine 2.62 H 2.63 H (0.6-1.2) mg/dl Glucose 116 H 114 H (70-99(Fasting)) mg/dl Calcium 7.8 L 7.3 L (8.6-10.3) mg/dl Direct Bilirubin 0.1 (0-0.2) mg/dl AST 18 (13-39) U/L ALT 16 (7-52) U/L Alkaline Phosphatase 149 H (34-104) U/L Total Protein 4.9 L (6.0-8.3) gm/dl Albumin 2.3 L (3.4-5.0) gm/dl Intake and Output 01/02/24 01/03/24 01/03/24 22:59 06:59 14:59 Intake Total 324.333 / 644.333 200 / 813.703 6903 / 1000 Output Total 200 / 200 Balance 124.333 / 444.333 200 / 211.557 0407 / 1000 Intake: IV 324.333 / 644.333 200 / 198.179 6154 / 1000 Acetaminophen 1,000 mg In 100 100 / 200 100 / 200 ml @ 400 mls/hr IV Q8H [facility]ONG Rx#: [id number] PANTOprazole 40 mg In Dextrose 174.333 / 274.333 100 / 274.333 5% Mini-B 100 ml @ 8 MG/HR 20 mls/hr IV Q5H TONG Rx#:[id number] Sodium Chloride 0.9% 1,000 ml @ 1000 / 1000 80 mls/hr IV .[id number] TONG Rx#: [id number] cefTRIAXone SODIUM 2,000 mg In 50 / 50 Dextrose 5 % Mini-B 50 ml @ 100 mls/hr IV Q24H TONG Rx#: [id number] Output: Urine 200 / 200 Other: Other Intake Source SIPS # Unmeasured Voids 300 Weight 59.466 kg 62 kg Weight Measurement Method Built in [employer] Built in [employer] Diagnostic Findings Echocardiogram 07/2023, [facility] Technically limits did study Left bundle branch block present during exam Moderate concentric LVH LVEF 50 to 55% Status post TAVR without significant aortic regurgitation. TAVR gradient stable. Grade 1 diastolic dysfunction (1) GI bleed GI bleed type/associated pathology: unspecified gastrointestinal hemorrhage type Qualified Code(s): K92.2 - Gastrointestinal hemorrhage, unspecified (6) Coronary artery disease Associated angina: without angina Coronary Disease-Associated Artery/Lesion type: [place] artery [place] vs. transplanted heart: [place] heart Qualified Code(s): I25.10 - Atherosclerotic heart disease of [place] coronary artery without angina pectoris
[2024-01-03 07:55] LABS: BUN Creatinine Ratio 20.5 (10-20); Calcium 7.3 mg/dl (8.6-10.3); Creatinine Clr Calc Pharmacy 13.1 ml/min; Est GFR (African American) 18.2 ml/min; Est GFR (Non-African American) 15.7 ml/min; Potassium 4.3 mmol/L (3.5-5.1)
[2024-01-03] MEDS: FLUTICASONE FUROATE 100MCG 14 PUFFS/INHALER INH SCH (08:30)
[2024-01-03] MEDS: FLUoxetine HCL 10 MG CAP PO SCH (08:31)
[2024-01-03] MEDS: UMECLIDINIUM/VILANTEROL 62.5/25MCG 7 PUFFS/INHALER INH SCH (08:31)
[2024-01-03] MEDS: AMIODARONE 200 MG TAB PO SCH (08:33)
[2024-01-03] MEDS ORDERED: NON-FORMULARY MEDICATION (Fluticasone-Umeclidin-Vilanter [Trelegy Ellipta] 100-62.5-25 mcg INH SCH (09:00)
--- NOTE | 2024-01-03 09:33 | Hospitalist Progress Note ---
Date of Service January 03, 2024 Assessment & Plan (1) Anemia: (2) GI bleed: (3) MISAEL (acute kidney injury): (4) Elevated troponin: (5) UTI (urinary tract infection): (6) COPD (chronic obstructive pulmonary disease): (7) Chronic hypoxic respiratory failure: (8) Paroxysmal atrial fibrillation: (9) HTN (hypertension): (10) Dyslipidemia: (11) Hip pain, left: (12) Depression: Plan Patient is an 88 year old female with PMHx significant for HTN, HLD, atrial fibrillation, COPD, chronic hypoxic hypercapnic respiratory failure, CKD III, depression who presented to the ER with c/o abnormal labs with Hgb: 6.9 today. Acute Blood Loss Anemia Possible GI bleed hx of Gastric ulcers Presented from [facility] for noted hgb of 6.9 On arrival in ED, hgb 8.1 on repeat Possible GI bleed, pt with previous EGD in chart from 2022 noting gastric ulcers +heme positive stool in ER In ER given Protonix IV Held home Eliquis and aspirin Iron levels noted to be low Anemia appears macrocytic, b12 and folate levels normal/supplemented GI consulted, appreciate recs -continue IV protonix -Continue current therapy and supportive care -will consider EGD if symptoms worsen or overt GI bleeding noted Continue IV protonix Trend H/H and transfuse as needed IV Venofer Continue to monitor MISAEL (acute kidney injury) Plan: MISAEL on CKD III BUN: 51, Cr: 2.6. Baseline Cr: ~1.2 Gentle IVF Hold nephrotoxic agents when possible Monitor renal function nephrology consulted, appreciate recs Elevated troponin Troponin: 17-->15 EKG: sinus rhythm, t wave inversions inferior leads, chronic LBBB Possible demand ischemia in setting of anemia Denies CP, current SOB Flat, doubt ACS UTI (urinary tract infection) Recent UTI on Cipro to 250 mg twice daily x 7 days, started on on evening of 12/27/2023. Hold home Cipro. Will finish course with Rocephin Repeat UA unremarkable, received 2 doses of rocephin Discontinued on 01/02 Hip pain, left Reported left hip pain. Has been on scheduled Tylenol, as needed oxycodone for severe pain at [facility] Continue scheduled Tylenol, as needed oxycodone severe pain COPD (chronic obstructive pulmonary disease) Chronic hypoxic respiratory failure On chronic 3 L oxygen via nasal cannula No signs of acute exacerbation currently Continue home supplemental oxygen, goal 90% Continue home inhalers, guaifenesin and as needed nebs Currently at baseline Paroxysmal atrial fibrillation Anticoagulated on Eliquis Current sinus rhythm Hold Eliquis currently Continue amiodarone, metoprolol succinate cardiology consulted for recs re: Rebekah, appreciate recs CAD Calcific aortic stenosis, status post TAVR Aspirin currently on hold Continue statin for CAD CHF Home lasix currently on hold HTN (hypertension) BP on lower end on admission Held amlodipine but continued metoprolol succ 12.5mg BID BP improving Dyslipidemia Continue atorvastatin Depression Continue fluoxetine DVT Prophylaxis: SCDs in setting of acute GI bleed DNR/DNI as per discussion with pt Dispo: PT/OT ordered, from [facility] Admission and Anticipated Discharge Date Admission Date: January 02, 2024 Subjective pt was seen in the AM Stated that she was miserable. Noted that she was nauseous. Denied recent BM, as well as any noted black or bloody stools. Review of Systems Review of Systems: All systems reviewed & are unremarkable except as noted in Subjective Physical Exam Physical Exam: General: Alert, oriented Skin: No noted rashes or bruises Psych: Appropriate mood and affect Neuro:difficulty with movements in the bed HEENT: NC/AT Chest: Nontender to palpation. CV: RRR Resp: no increased effort of breathing Abdomen: Soft, diffusely tender Extremities: Edema noted Results & Data Results & Data Vital Signs (Past 12 Hours) Vital Signs Temp Pulse Pulse Resp BP Pulse Ox O2 Del Method 01/03/24 08:30 36.4 C L 67 16 114/69 100 Nasal Cannula 01/03/24 07:00 60 01/03/24 03:55 36.5 C 70 18 100/62 94 Nasal Cannula 01/02/24 22:28 36.7 C 59 L 18 101/44 L 100 Nasal Cannula O2 Flow Rate 01/03/24 08:30 01/03/24 07:00 01/03/24 03:55 3 01/02/24 22:28 3
--- NOTE | 2024-01-03 09:54 | Nephrology Consultation ---
Date of Consultation January 03, 2024 Assessment & Plan (1) MISAEL (acute kidney injury): (2) CKD (chronic kidney disease), stage III: MISAEL on background CKD ( creat has been worsening lately). previously baseline 1.2. Lot of Comorbid Dz pool end stage COPD which makes her very prone to develop ATN. With GI bleed and severe Anemia she developed ischemic ATN. Creat is rising but current creat is only slightly higher than from 12/26. She is not volume Depleted and would not give her more iv fluid. In fact she does have Sig edema and is likely volume overloaded. try to keep hgb > 8. Continue Supportive care. Avoid nephrotoxic drugs. Daily labs. No dialysis needed now and she will not be a candidate if such need arise. (3) Anemia due to blood loss: (4) GI bleed: O protonix drip and eliquis on hold. GI bleed is the trigger for MISAEL sec to ATN History of Present Illness Reason for Consultation: MISAEL on CKD 3 Attending Physician: Ynes Cevallos MD History of Present Illness 88/F with baseline CKD 3 Creat 1.2 as well as HTN, atrial fibrillation on eliquis, Severe COPD, chronic hypoxic hypercapnic respiratory failure, h/o CHF and Aortic stenosis s/p TAVR presented to ER with Abnormal labs--hgb 6.9. Patient currently at [facility]. Reports having intermittent pain across abdomen after eating. She reports feeling tired. has chronic SOB and is unsure if worse. Doesn't think has been having melena or hematochezia. Having some pain to left upper leg that radiates up to left hip. Uses walker for walking. States some positional dizziness. Creat now is 2.6 and has not gone up since admision. her creat was 1.2 few months back but it appears has been going up even before this admission on [facility]. She was discharged on 10/2023 from [facility]. Overnight had Iv fluid briefly but not now. PRBC and Also protonix drip. eliquis on hold. ROS--see HPI. Denies fever/chills, diaphoresis, N/V/D/C, LESTER, syncope, vision changes, neck pain, CP, orthopnea, palpitations, cough, otalgia, rhinorrhea, paresthesias, increased weakness, increased extremity edema, rashes, urinary symptoms. Exam: Constitutional:Mild resp distress HEENT: MM moist.Neck Supple. No JVD. Respiratory system: Decreased air entry bilaterally, no wheeze, no rhonchi, positive crackles appreciated bilaterally CVS: S1-S2 positive, positive 3 out of 6 systolic murmur appreciated best at aorta Abdomen: Soft, nontender, nondistended, positive bowel sounds x4 Extremities: 1+ edema bilateral lower extremity Neuro: Awake alert oriented x3 Psych: Normal mood and affect Allergies Allergy/AdvReac Type Severity Reaction Status Date / Time Sulfa (Sulfonamide Allergy Severe SHORT OF Verified 01/02/24 16:21 Antibiotics) BREATH, ITCHING PER [facility] atenolol AdvReac Intermediate STOMACH Verified 01/02/24 16:21 PAIN PER [facility] lisinopril AdvReac Intermediate HYPERKALEMIA Verified 01/02/24 16:21 PER [facility] Home Medications Medication Instructions Recorded Confirmed Type meclizine 25 mg chewable tablet 25 mg PO TID PRN Dizziness 12/31/18 01/02/24 History vit C 250 mg-vit E 90 mg-zinc 40 1 tab PO AMHS 05/29/19 01/02/24 History mg-copper 1 [id number] capsule (PreserVision AREDS-2) ondansetron 4 mg disintegrating 4 - 8 mg PO Q8H PRN Nausea 05/16/20 01/02/24 History tablet aspirin 81 mg tablet,delayed 81 mg PO QAM 10/29/21 01/02/24 History release ergocalciferol (vitamin D2) 1,250 50,000 unit PO WK 10/29/21 01/02/24 History mcg (50,000 unit) capsule zolpidem 5 mg tablet (Ambien) 5 mg PO HS PRN Sleep 10/29/21 01/02/24 History fluoxetine 10 mg tablet 10 mg PO QAM 09/27/22 01/02/24 History atorvastatin 10 mg tablet 10 mg PO HS #30 tabs 08/12/23 01/02/24 Rx acetaminophen 325 mg tablet 650 mg PO TID 08/28/23 01/02/24 History (Tylenol) amoxicillin 500 mg capsule 2,000 mg PO DIRECTED PRN 1 HR 08/28/23 01/02/24 History PRIOR TO DENTAL PROCEDURES guaifenesin 600 mg tablet, 600 mg PO AMHS 08/28/23 01/02/24 History extended release 12 hr (Mucinex) ipratropium 20 mcg-albuterol 100 1 puff inhalation QID PRN 08/28/23 01/02/24 History mcg/actuation mist for inhalation NEEDED PER [facility] amiodarone 200 mg tablet 200 mg PO QAM 08/29/23 01/02/24 History Oxygen Home E0424 #1 ea 09/24/23 01/02/24 Rx amlodipine 5 mg tablet 5 mg PO QAM 10/28/23 01/02/24 History apixaban 5 mg tablet (Eliquis) 5 mg PO AMHS 10/28/23 01/02/24 History metoprolol succinate 25 mg 12.5 mg PO AMHS 10/28/23 01/02/24 History tablet,extended release 24 hr mirtazapine 15 mg tablet 15 mg PO HS 10/28/23 01/02/24 History pantoprazole 20 mg tablet,delayed 20 mg PO AMPM 10/28/23 01/02/24 History release albuterol sulfate 90 mcg/actuation 2 inh inhalation Q6H PRN shortness 12/03/23 01/02/24 Rx aerosol inhaler (Ventolin HFA) of breath or wheezing #8.5 grams fluticasone fur. 100 mcg-umeclid 1 inh inhalation QAM #60 ea 12/03/23 01/02/24 Rx 62.5 mcg-vilant 25 mcg inhalat.powder (Trelegy Ellipta) ciprofloxacin HCl 250 mg tablet 250 mg PO BID 01/02/24 01/02/24 History (Cipro) diclofenac sodium 1 % topical gel 4 g topical QID PRN Pain 01/02/24 01/02/24 History oxycodone 5 mg tablet 10 mg PO Q6H PRN Severe Pain 01/02/24 01/02/24 History (Scale Score 7-10) Patient History Medical History MISAEL (acute kidney injury) Hypokalemia Pneumonia Acute respiratory failure with hypoxia and hypercapnia Febrile illness Fall Pneumonia Vertebral artery stenosis 75% stenosis of left vertebral artery per 05/30/2019 neck CTA Traumatic subarachnoid hemorrhage hx - 02/2021? Vertigo Coronary artery disease "diffuse minor CAD by cardiac catheterization 01/27/2019" per [facility] cardio note 06/29/2021 Hip dislocation, left currently in a brace Transient ischemic attack (TIA) possible per cardio note, 02/26/2021-negative CT and MRI imaging-on ASA per cardio with Plavix d/c due to subdural hematoma that subsequently resolved (cleared by neurosurgery [facility]) Macular degeneration Dyspnea Multiple pulmonary nodules determined by computed tomography of lung no further imaging needed given stability from 2019 per [facility] note 07/08/2021 Left bundle branch block chronic per [facility] cardio note-noted post TAVR 05/27/2019 per [facility] cardio note HTN (hypertension) controlled, stable per pt Dyslipidemia CKD (chronic kidney disease), stage III Osteoporosis COPD (chronic obstructive pulmonary disease) follows with [facility], on Trelegy Carotid stenosis 50-69% TONNY 03/12/2019 duplex per [facility] cardio GERD (gastroesophageal reflux disease) controlled, stable per pt Surgical History History of colonoscopy S/P revision of total hip left hip History of cardiac catheterization 05/15/2019 TAVR. 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 Bearden at [facility], 02/26/2021-normal gradient S/P tonsillectomy and adenoidectomy History of cataract surgery RT/LEFT H/O hernia repair RT INGUINAL HERNIA History of hysterectomy Family History Other No family history of adverse response to anesthesia Stroke Social History Smoking Status: Former smoker Tobacco Type: Cigarettes Smoking End Date: 15 years ago; Second Hand Exposure: Yes (son smokes); Do You Dip or Chew Tobacco: No; Hx Alcohol Use: No Hx Substance Use: No Preferred Language: Maori Communication Ability: Effective Telecasting Technician Required: No Beliefs That Will Affect Care: None marital status: Current Living Situation: Shelter Current Living Situation Comment: Lives at [facility] Feels Safe at Home: Yes Safety Concerns: Feels Safe At This Time Assistive Devices: Glasses and Walker Results & Data Vital Signs (Past 12 Hours) Vital Signs Temp Pulse Pulse Resp BP Pulse Ox O2 Del Method 01/03/24 08:30 36.4 C L 67 16 114/69 100 Nasal Cannula 01/03/24 07:00 60 01/03/24 03:55 36.5 C 70 18 100/62 94 Nasal Cannula 01/02/24 22:28 36.7 C 59 L 18 101/44 L 100 Nasal Cannula O2 Flow Rate 01/03/24 08:30 01/03/24 07:00 01/03/24 03:55 3 01/02/24 22:28 3 Laboratory Results Reviewed Diagnostic Findings Reviewed (4) GI bleed GI bleed type/associated pathology: unspecified gastrointestinal hemorrhage type Qualified Code(s): K92.2 - Gastrointestinal hemorrhage, unspecified
--- NOTE | 2024-01-03 12:25 | Gastrointestinal Consultation ---
Date of Consultation January 03, 2024 Assessment & Plan (1) Anemia: -Continue to monitor H/H -Antiemetics for nausea/vomiting -IV Protonix 40 mg BID Supervising Physician Co-Signing Physician Notes Agree with NAHOMI Winters as above Abd: Soft, NT, ND, +BS Continue current therapy and supportive care Consider EGD if symptoms worsen or overt GI bleeding noted History of Present Illness Reason for Consultation: Anemia Attending Physician: Ynes Cevallos MD History of Present Illness Patient is an 88 yo female with PMH of depression, COPD with chronic respiratory failure, CHF, CAD, PAF, Aortic valve stenosis s/p TAVR, LBBB & GERD. GI has been consulted for anemia. The patient denies hematemesis, melena, or hematochezia. She notes she became nauseated overnight and has had several episodes of emesis overnight. H/H 7.7/25.9 and BUN/Cr 54/2.63. The patient notes nausea ongoing today. CT abd/pelvis without significant GI abnormality. She has a history of antral ulcers. Last EGD in November 2022 unremarkable. She does not think she's been taking a PPI. Allergies Allergy/AdvReac Type Severity Reaction Status Date / Time Sulfa (Sulfonamide Allergy Severe SHORT OF Verified 01/02/24 16:21 Antibiotics) BREATH, ITCHING PER [facility] atenolol AdvReac Intermediate STOMACH Verified 01/02/24 16:21 PAIN PER [facility] lisinopril AdvReac Intermediate HYPERKALEMIA Verified 01/02/24 16:21 PER [facility] Home Medications Medication Instructions Recorded Confirmed Type meclizine 25 mg chewable tablet 25 mg PO TID PRN Dizziness 12/31/18 01/02/24 History vit C 250 mg-vit E 90 mg-zinc 40 1 tab PO AMHS 05/29/19 01/02/24 History mg-copper 1 [id number] capsule (PreserVision AREDS-2) ondansetron 4 mg disintegrating 4 - 8 mg PO Q8H PRN Nausea 05/16/20 01/02/24 History tablet aspirin 81 mg tablet,delayed 81 mg PO QAM 10/29/21 01/02/24 History release ergocalciferol (vitamin D2) 1,250 50,000 unit PO WK 10/29/21 01/02/24 History mcg (50,000 unit) capsule zolpidem 5 mg tablet (Ambien) 5 mg PO HS PRN Sleep 10/29/21 01/02/24 History fluoxetine 10 mg tablet 10 mg PO QAM 09/27/22 01/02/24 History atorvastatin 10 mg tablet 10 mg PO HS #30 tabs 08/12/23 01/02/24 Rx acetaminophen 325 mg tablet 650 mg PO TID 08/28/23 01/02/24 History (Tylenol) amoxicillin 500 mg capsule 2,000 mg PO DIRECTED PRN 1 HR 08/28/23 01/02/24 History PRIOR TO DENTAL PROCEDURES guaifenesin 600 mg tablet, 600 mg PO AMHS 08/28/23 01/02/24 History extended release 12 hr (Mucinex) ipratropium 20 mcg-albuterol 100 1 puff inhalation QID PRN 08/28/23 01/02/24 History mcg/actuation mist for inhalation NEEDED PER [facility] amiodarone 200 mg tablet 200 mg PO QAM 08/29/23 01/02/24 History Oxygen Home E0424 #1 ea 09/24/23 01/02/24 Rx amlodipine 5 mg tablet 5 mg PO QAM 10/28/23 01/02/24 History apixaban 5 mg tablet (Eliquis) 5 mg PO AMHS 10/28/23 01/02/24 History metoprolol succinate 25 mg 12.5 mg PO AMHS 10/28/23 01/02/24 History tablet,extended release 24 hr mirtazapine 15 mg tablet 15 mg PO HS 10/28/23 01/02/24 History pantoprazole 20 mg tablet,delayed 20 mg PO AMPM 10/28/23 01/02/24 History release albuterol sulfate 90 mcg/actuation 2 inh inhalation Q6H PRN shortness 12/03/23 01/02/24 Rx aerosol inhaler (Ventolin HFA) of breath or wheezing #8.5 grams fluticasone fur. 100 mcg-umeclid 1 inh inhalation QAM #60 ea 12/03/23 01/02/24 Rx 62.5 mcg-vilant 25 mcg inhalat.powder (Trelegy Ellipta) ciprofloxacin HCl 250 mg tablet 250 mg PO BID 01/02/24 01/02/24 History (Cipro) diclofenac sodium 1 % topical gel 4 g topical QID PRN Pain 01/02/24 01/02/24 History oxycodone 5 mg tablet 10 mg PO Q6H PRN Severe Pain 01/02/24 01/02/24 History (Scale Score 7-10) Patient History Medical History MISAEL (acute kidney injury) Hypokalemia Pneumonia Acute respiratory failure with hypoxia and hypercapnia Febrile illness Fall Pneumonia Vertebral artery stenosis 75% stenosis of left vertebral artery per 05/30/2019 neck CTA Traumatic subarachnoid hemorrhage hx - 02/2021? Vertigo Coronary artery disease "diffuse minor CAD by cardiac catheterization 01/27/2019" per [facility] cardio note 06/29/2021 Hip dislocation, left currently in a brace Transient ischemic attack (TIA) possible per cardio note, 02/26/2021-negative CT and MRI imaging-on ASA per cardio with Plavix d/c due to subdural hematoma that subsequently resolved (cleared by neurosurgery [facility]) Macular degeneration Dyspnea Multiple pulmonary nodules determined by computed tomography of lung no further imaging needed given stability from 2019 per [facility] note 07/08/2021 Left bundle branch block chronic per [facility] cardio note-noted post TAVR 05/27/2019 per [facility] cardio note HTN (hypertension) controlled, stable per pt Dyslipidemia CKD (chronic kidney disease), stage III Osteoporosis COPD (chronic obstructive pulmonary disease) follows with [facility], on Trelegy Carotid stenosis 50-69% TONNY 03/12/2019 duplex per [facility] cardio GERD (gastroesophageal reflux disease) controlled, stable per pt Surgical History History of colonoscopy S/P revision of total hip left hip History of cardiac catheterization 05/15/2019 TAVR. 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 Bearden at [facility], 02/26/2021-normal gradient S/P tonsillectomy and adenoidectomy History of cataract surgery RT/LEFT H/O hernia repair RT INGUINAL HERNIA History of hysterectomy Family History Other No family history of adverse response to anesthesia Stroke Social History Smoking Status: Former smoker Tobacco Type: Cigarettes Smoking End Date: 15 years ago; Second Hand Exposure: Yes (son smokes); Do You Dip or Chew Tobacco: No; Hx Alcohol Use: No Hx Substance Use: No Preferred Language: Barbadian Communication Ability: Effective Subsea Engineer Required: No Beliefs That Will Affect Care: None marital status: Current Living Situation: Correction Current Living Situation Comment: Lives at [facility] Feels Safe at Home: Yes Safety Concerns: Feels Safe At This Time Assistive Devices: Glasses and Walker Review of Systems Constitutional: no fever and no chills Respiratory: no cough and no dyspnea Cardiovascular: no chest pain Gastrointestinal: + nausea and + vomiting; no coffee groun d emesis, no hematemesis and no melena Physical Exam Constitutional: well developed Respiratory: normal respiratory effort Cardiovascular: Rate/Rhythm: regular rate Gastrointestinal (Abdomen): normal bowel sounds, soft, nontender, no hepatosplenomegaly Psychiatric: Orientation: alert and oriented x 3 Results & Data Vital Signs (Past 12 Hours) Vital Signs Temp Pulse Pulse Resp BP Pulse Ox O2 Del Method 01/03/24 11:42 36.6 C 66 15 97/60 L 100 Nasal Cannula 01/03/24 08:30 36.4 C L 67 16 114/69 100 Nasal Cannula 01/03/24 07:40 Nasal Cannula 01/03/24 07:00 60 01/03/24 03:55 36.5 C 70 18 100/62 94 Nasal Cannula O2 Flow Rate 01/03/24 11:42 01/03/24 08:30 01/03/24 07:40 3 01/03/24 07:00 01/03/24 03:55 3 PG Care Time/CCT Total # of Minutes Spent Total Time Spent with Patient: Total time spent is greater than 50% in coordination of care (as documented) at patient's floor/unit and/or counseling patient: Coding Level of Care Code 73459 INT INP/OBS CARE 3/75MIN Diagnoses Anemia D64.9
[2024-01-03 13:27] LABS: Hematocrit (blood only) 24.5 % (37.0-47.0); Hemoglobin 7.6 g/dl (12.0-16.0)
[2024-01-03 16:48] LABS: Appearance Urine Clear (Clear); Bacteria Urine Automated None Seen (None Seen); Bilirubin Urine Negative (Negative); Blood Urine Negative (Negative); Color Urine Yellow; Glucose Urine UA Negative (Negative); Ketones Urine Negative (Negative); Leukocyte Esterase Urine Trace (Negative); Nitrite Urine Negative (Negative); Protein Urine Trace (Negative); RBC Urine Automated 0-2 /hpf (0-2); Renal Epithelial Cells Urine Present /lpf (None Presnt); Urobilinogen Urine Negative (Negative); WBC Urine Automated 0-5 /hpf (0-5)
[2024-01-03] MEDS: oxyCODONE HCL IR 5 MG TAB (IMMEDIATE RELEASE) PO PRN (18:00)
[2024-01-03 19:24] LABS: Hematocrit (blood only) 26.4 % (37.0-47.0); Hemoglobin 7.9 g/dl (12.0-16.0)
[2024-01-03] MEDS: IRON SUCROSE 200 MG in 0.9 % SODIUM CHLORIDE 100 ML IV ONE (21:16)
[2024-01-04 01:30] LABS: Hemoglobin 7.2 g/dl (12.0-16.0)
--- NOTE | 2024-01-04 09:24 | Nephrology Progress Note ---
Date of Service January 04, 2024 Assessment & Plan Admission and Anticipated Discharge Date Admission Date: January 02, 2024 Subjective Assessment & Plan (1) MISAEL (acute kidney injury): (2) CKD (chronic kidney disease), stage III: MISAEL on background CKD ( creat has been worsening lately). previously baseline 1.2. Lot of Comorbid Dz pool end stage COPD which makes her very prone to develop ATN. With GI bleed and severe Anemia she developed ischemic ATN. Creat is rising but current creat is only slightly higher than from 12/26. She is not volume Depleted and would not give her more iv fluid. In fact she does have Sig edema and is likely volume overloaded. try to keep hgb > 8. Consider PRBC. Can give one dose of lasix 40 iv with that. Continue Supportive care. Avoid nephrotoxic drugs. Daily labs. No dialysis needed now and dont think she will be a candidate if such need arise. S--patient feels weak. has lot of edema. hgb dropped to 7.2. Creat same as yesterday Exam: Constitutional:Mild resp distress HEENT: MM moist.Neck Supple. No JVD. Respiratory system: Decreased air entry bilaterally, no wheeze, no rhonchi, positive crackles appreciated bilaterally CVS: S1-S2 positive, positive 3 out of 6 systolic murmur appreciated best at aorta Abdomen: Soft, nontender, nondistended, positive bowel sounds x4 Extremities: 1+ edema bilateral lower extremity Neuro: Awake alert oriented x3 Psych: Normal mood and affect Results & Data Vital Signs (Past 12 Hours) Vital Signs Temp Pulse Pulse Resp BP Pulse Ox O2 Del Method 01/04/24 08:32 63 01/04/24 07:54 36.7 C 65 17 115/71 99 Nasal Cannula 01/04/24 07:29 Nasal Cannula 01/04/24 04:05 36.6 C 68 14 105/64 100 Nasal Cannula 01/03/24 23:32 36.7 C 67 16 95/59 L 99 Nasal Cannula 01/03/24 23:00 69 O2 Flow Rate 01/04/24 08:32 01/04/24 07:54 01/04/24 07:29 3 01/04/24 04:05 3 01/03/24 23:32 3 01/03/24 23:00
[2024-01-04 10:01] LABS: Hemoglobin 7.1 g/dl (12.0-16.0); Mean Corpuscular Hemoglobin 32.9 pg (25.0-34.0); Mean Corpuscular Hgb Conc 30.9 g/dL (32.0-36.0); Mean Corpuscular Volume 106.5 fL (80.0-100.0); Mean Platelet Volume 10.2 fL (9.4-12.4); Platelet Count 241 K/uL (130-400); RDW Coefficient of Variation 17.8 % (11.5-14.5); Red Blood Count 2.16 M/uL (4.20-5.40); White Blood Count 12.17 K/ul (4.8-10.8)
--- NOTE | 2024-01-04 10:04 | Gastroenterology Progress Note ---
Date of Service January 04, 2024 Assessment & Plan (1) Anemia: Plan: -Continue Pantoprazole 40 mg BID -Monitor H/H -Patient currently eating a liquid diet at present. We will see how she tolerates this. Admission and Anticipated Discharge Date Admission Date: January 02, 2024 Supervising Physician Co-Signing Physician Notes Agree with NAHOMI Winters as above Interviewed and examined independently and agree with above Abd: Soft, NT, ND, +BS Continue current therapy and supportive care Subjective Patient is an 88 yo female with anemia & nausea. No melena/hematemesis/hematochezia overnight. H/H 7.2/23.0. She notes improvement of nausea & vomiting. She's eating clear liquid breakfast during my visit. No new complaints. Review of Systems Cardiovascular: no chest pain Gastrointestinal: no abdominal pain, no vomiting and no diarrhea/loose stools Physical Exam Constitutional: well developed Respiratory: normal respiratory effort Cardiovascular: Rate/Rhythm: regular rate Gastrointestinal (Abdomen): normal bowel sounds, soft, nontender, no hepatosplenomegaly Results & Data Results & Data Vital Signs (Past 12 Hours) Vital Signs Temp Pulse Pulse Resp BP Pulse Ox O2 Del Method 01/04/24 08:32 63 01/04/24 07:54 36.7 C 65 17 115/71 99 Nasal Cannula 01/04/24 07:29 Nasal Cannula 01/04/24 04:05 36.6 C 68 14 105/64 100 Nasal Cannula 01/03/24 23:32 36.7 C 67 16 95/59 L 99 Nasal Cannula 01/03/24 23:00 69 O2 Flow Rate 01/04/24 08:32 01/04/24 07:54 01/04/24 07:29 3 01/04/24 04:05 3 01/03/24 23:32 3 01/03/24 23:00 PG Care Time/CCT Total # of Minutes Spent Total Time Spent with Patient: Total time spent is greater than 50% in coordination of care (as documented) at patient's floor/unit and/or counseling patient: Coding Level of Care Code 23416 SUB INP/OBS CARE 3/50MIN Diagnoses Anemia D64.9
[2024-01-04 10:26] LABS: Alanine Aminotransferase 16 U/L (7-52); Albumin Globulin Ratio 0.8 (0.9-2); Albumin Level 1.9 gm/dl (3.4-5.0); Alkaline Phosphatase 152 U/L (34-104); Anion Gap 4 (3-11); BUN Creatinine Ratio 19.4 (10-20); Bilirubin,Total 0.4 mg/dl (0.2-1.0); Blood Urea Nitrogen 48 mg/dl (6-23); Calcium 7.2 mg/dl (8.6-10.3); Carbon Dioxide 26 mmol/L (21-32); Chloride 106 mmol/L (98-107); Creatinine Clr Calc Pharmacy 13.8 ml/min; Est GFR (African American) 19.6 ml/min; Est GFR (Non-African American) 16.9 ml/min; Globulin 2.3 gm/dl (2.5-4.0); Glucose 122 mg/dl (70-99(Fasting)); Magnesium 2.8 mg/dl (1.7-2.4); Phosphorus 4.5 mg/dl (2.5-4.9); Sodium 136 mmol/L (136-145); Total Protein 4.2 gm/dl (6.0-8.3)
--- NOTE | 2024-01-04 10:40 | Cardiology Progress Note ---
Date of Service January 04, 2024 Assessment & Plan (1) GI bleed: (2) Anemia due to blood loss: (3) Elevated troponin: (4) Paroxysmal atrial fibrillation: (5) Chronic heart failure with preserved ejection fraction (HFpEF): (6) Coronary artery disease: (7) S/P TAVR (transcatheter aortic valve replacement): (8) COPD (chronic obstructive pulmonary disease) with emphysema: Plan IMPRESSION: Medically complex 88 year old female presents with symptomatic blood loss anemia with a presenting hgb of 6.9. On Eliquis due to history of PAF in the setting of PNA and anaplasmosis. Also carries history of nonobstructive CAD, TAVR, TIA-- on ASA 81 mg daily PLAN: PAF: No known reoccurrence of PAF-- on rhythm control with amiodarone. Rate control with metoprolol succinate. Continue History of traumatic subarachnoid hemorrhage of DAPT. -Given symptomatic anemia and active GIB risk of continuation of Eliquis outweighs the benefit. Okay to hold at this time. Patient in agreement. -Continue to monitor on telemetry while inpatient -K goal of 4.0 and mag goal of 2.0, replace as needed. Chronic HFpEF: Patient appears hypervolemic on exam with evidence of lower extremity edema and orthopnea. It is not clear what her baseline edema looks like. Normally maintains on low dose Lasix 20 mg MWF only. Received IVF due to renal dysfunction. Scr remains elevated above baseline (2.6) Appreciate nephrology recommendations. -Currently NPO, when able to eat recommend 2g sodium restriction -Strict I&O and daily weights. CAD: Nonobstructive per cath 01/2019 Stable, no angina. Elevated troponin likely in the setting of demand given symptomatic blood loss anemia and MISAEL. -Resume ASA when clinically stable. -Continue Statin S/p TAVR: Status post TAVR (# 23 mm Aldridge Brice S3 valve), 05/16/2019 TAVR gradients stable per most recent echo 10/2023 Left bundle branch block noted post TAVR 05/27/2019. -Resume ASA when clinically stable. GIB/Anemia: Hgb 6.9>>8.1>>7.5>>7.7 On PPI Management per primary service and GI-- appreciate GI recommendations. 01/04/24: Patient with persistent abdominal pain with diffuse tenderness, and nausea. Hbg trending lower to 7.2 this morning. Would consider transfusion of PRBC's with dose of IV lasix afterwards. Defer to hospitalist. GI has been consulted. Would reconsider evaluation with EGD given history of gastric ulcerations. Creatinine minimally improved from yesterday 2.6 now 2.48. Nephrology following and appreciate recommendations. Avoid additional IV fluids as patient appears hypervolemic. Maintaining NSR on amiodarone and metoprolol. Eliquis on hold given severe anemia and GI bleed. ASA also on hold Given history of TAVR, will need to resume at least ASA 81 mg daily when hbg stabilizes. Future reconsideration for Eliquis to be resumed if she has recurrent afib, possibly at 2.5 mg if creatinine remains > 1.5. Case discussed with Dr. Miranda. I spent a total of 30 minutes on the date of service in preparation, delivery, and documentation of the care provided to the patient excluding any time spent in the performance of separately billed services. Madison May PA-C Department of Cardiology, [facility] This chart was completed in part utilizing Speech Voice Recognition Software. Grammatical errors, random word insertions, pronoun errors, and incomplete sentences are an occasional consequence of this system due to software limitations, ambient noise, and hardware issues. Any formal questions or concerns about the content, text, or information contained within the body of this dictation should be directly addressed to the provider for clarification. Admission and Anticipated Discharge Date Admission Date: January 02, 2024 Supervising Physician Co-Signing Physician Notes Patient was seen and examined personally. Assessment and plan as outlined above. Care and management discussed in detail with advanced provider and plan personally endorsed Complex 88-year-old female who presents with nausea emesis abdominal pain and symptomatic blood loss anemia. Acute renal insufficiency on laboratory testing Prior gastric antral ulcers on EGD September 2022 Plan as above hold/stop aspirin and Eliquis. Continues to experience symptoms of nausea and abdominal pain. Abdomen tender to palpation Will address long-term needs for antiplatelet and anticoagulant therapies as clinical course progresses. Risks far outweigh benefits at this time. Suspect patient may benefit from single agent antiplatelet therapy in the future with clopidogrel I spent a total of 20 minutes on the date of service in preparation, delivery, and documentation of the care provided to the patient excluding any time spent in the performance of separately billed services. Subjective Patient resting in bed. Ongoing abdominal pain with nausea. No vomiting. No recent bowel movement. No chest pain or dyspnea. Hbg trending down to 7.2 this morning. Review of Systems Review of Systems: All systems reviewed & are unremarkable except as noted in HPI & below Physical Exam Constitutional: + ill appearing; no acute distress Neck: normal visual inspection and trachea midline Respiratory: normal respiratory effort; no respiratory distress and no cough Auscultation: + diminished lung sounds Cardiovascular: Rate/Rhythm: regular rate and regular rhythm Heart Sounds: normal S1, normal S2 and + murmur (+2/6 systolic murmur) Vessels: + JVD Extremities: + edema (1+ LE edema) Gastrointestinal (Abdomen): Percussion/Palpation: + abdomen tender and abdomen soft Skin: no rashes, warm and dry Neurologic: PERRL, EOMI, accommodation nl, no face palsy, no dysarthria Psychiatric: Orientation: alert and oriented x 3 Results & Data Vital Signs (Past 12 Hours) Vital Signs Temp Pulse Pulse Resp BP Pulse Ox O2 Del Method 01/04/24 08:32 63 01/04/24 07:54 36.7 C 65 17 115/71 99 Nasal Cannula 01/04/24 07:29 Nasal Cannula 01/04/24 04:05 36.6 C 68 14 105/64 100 Nasal Cannula 01/03/24 23:32 36.7 C 67 16 95/59 L 99 Nasal Cannula 01/03/24 23:00 69 O2 Flow Rate 01/04/24 08:32 01/04/24 07:54 01/04/24 07:29 3 01/04/24 04:05 3 01/03/24 23:32 3 01/03/24 23:00 Laboratory Results Cardiac Enzymes 01/04/24 Range/Units 09:48 AST TNP CBC 01/03/24 01/03/24 01/04/24 Range/Units 12:58 18:40 01:06 WBC (4.8-10.8) K/ul RBC (4.20-5.40) M/uL Hgb 7.6 L 7.9 L 7.2 L (12.0-16.0) g/dl Hct 24.5 L 26.4 L 23.0 L (37.0-47.0) % Plt Count (130-400) K/uL 01/04/24 Range/Units 09:48 WBC 12.17 H (4.8-10.8) K/ul RBC 2.16 L (4.20-5.40) M/uL Hgb 7.1 L (12.0-16.0) g/dl Hct 23.0 L (37.0-47.0) % Plt Count 241 (130-400) K/uL Comprehensive Metabolic Panel 01/04/24 Range/Units 09:48 Sodium 136 (136-145) mmol/L Potassium TNP Chloride 106 (98-107) mmol/L Carbon Dioxide 26 (21-32) mmol/L BUN 48 H (6-23) mg/dl Creatinine 2.48 H (0.6-1.2) mg/dl Glucose 122 H (70-99(Fasting)) mg/dl Calcium 7.2 L (8.6-10.3) mg/dl AST TNP ALT 16 (7-52) U/L Alkaline Phosphatase 152 H (34-104) U/L Total Protein 4.2 L (6.0-8.3) gm/dl Albumin 1.9 L (3.4-5.0) gm/dl Intake and Output 01/03/24 01/04/24 01/04/24 22:59 06:59 14:59 Intake Total 358.667 / 1658.667 100 / 1658.667 100 / 100 Balance 358.667 / 1658.667 100 / 1658.667 100 / 100 Intake: IV 358.667 / 1658.667 100 / 1658.667 100 / 100 Iron Sucrose 200 mg In 0.9 % 110 / 110 Sodium Chloride 100 ml @ 220 mls/hr IV TODAY ONE Rx#: [id number] PANTOprazole 40 mg In Dextrose 198.667 / 398.667 100 / 398.667 100 / 100 5% Mini-B 100 ml @ 8 MG/HR 20 mls/hr IV Q5H [facility] Rx#:[id number] cefTRIAXone SODIUM 2,000 mg In 50 / 50 Dextrose 5 % Mini-B 50 ml @ 100 mls/hr IV Q24H [facility] Rx#: [id number] Other: # Unmeasured Voids 1 Diagnostic Findings Telemetry reviewed: NSR with 1st degree AV block. No arrhythmias Medications Administered Cardiac Enzymes 01/04/24 Range/Units 09:48 AST TNP CBC 01/03/24 01/03/24 01/04/24 Range/Units 12:58 18:40 01:06 WBC (4.8-10.8) K/ul RBC (4.20-5.40) M/uL Hgb 7.6 L 7.9 L 7.2 L (12.0-16.0) g/dl Hct 24.5 L 26.4 L 23.0 L (37.0-47.0) % Plt Count (130-400) K/uL 01/04/24 Range/Units 09:48 WBC 12.17 H (4.8-10.8) K/ul RBC 2.16 L (4.20-5.40) M/uL Hgb 7.1 L (12.0-16.0) g/dl Hct 23.0 L (37.0-47.0) % Plt Count 241 (130-400) K/uL Comprehensive Metabolic Panel 01/04/24 Range/Units 09:48 Sodium 136 (136-145) mmol/L Potassium TNP Chloride 106 (98-107) mmol/L Carbon Dioxide 26 (21-32) mmol/L BUN 48 H (6-23) mg/dl Creatinine 2.48 H (0.6-1.2) mg/dl Glucose 122 H (70-99(Fasting)) mg/dl Calcium 7.2 L (8.6-10.3) mg/dl AST TNP ALT 16 (7-52) U/L Alkaline Phosphatase 152 H (34-104) U/L Total Protein 4.2 L (6.0-8.3) gm/dl Albumin 1.9 L (3.4-5.0) gm/dl Intake and Output 01/03/24 01/04/24 01/04/24 22:59 06:59 14:59 Intake Total 358.667 / 1658.667 100 / 1658.667 100 / 100 Balance 358.667 / 1658.667 100 / 1658.667 100 / 100 Intake: IV 358.667 / 1658.667 100 / 1658.667 100 / 100 Iron Sucrose 200 mg In 0.9 % 110 / 110 Sodium Chloride 100 ml @ 220 mls/hr IV TODAY ONE Rx#: [id number] PANTOprazole 40 mg In Dextrose 198.667 / 398.667 100 / 398.667 100 / 100 5% Mini-B 100 ml @ 8 MG/HR 20 mls/hr IV Q5H [facility] Rx#:[id number] cefTRIAXone SODIUM 2,000 mg In 50 / 50 Dextrose 5 % Mini-B 50 ml @ 100 mls/hr IV Q24H [facility] Rx#: [id number] Other: # Unmeasured Voids 1 (1) GI bleed GI bleed type/associated pathology: unspecified gastrointestinal hemorrhage type Qualified Code(s): K92.2 - Gastrointestinal hemorrhage, unspecified (6) Coronary artery disease Associated angina: without angina Coronary Disease-Associated Artery/Lesion type: [place] artery [place] vs. transplanted heart: [place] heart Qualified Code(s): I25.10 - Atherosclerotic heart disease of [place] coronary artery without angina pectoris
[2024-01-04] MEDS ORDERED: SODIUM CHLORIDE 0.9% 250 ML IV PRN (10:51)
[2024-01-04] MEDS: FUROSEMIDE 40 MG/4 ML VIAL IV ONE (11:03)
[2024-01-04 11:23] LABS: Potassium 3.8 mmol/L (3.5-5.1)
--- NOTE | 2024-01-04 15:44 | Hospitalist Progress Note ---
Date of Service January 04, 2024 Assessment & Plan (1) Anemia: (2) GI bleed: (3) MISAEL (acute kidney injury): (4) Elevated troponin: (5) UTI (urinary tract infection): (6) COPD (chronic obstructive pulmonary disease): (7) Chronic hypoxic respiratory failure: (8) Paroxysmal atrial fibrillation: (9) HTN (hypertension): (10) Dyslipidemia: (11) Hip pain, left: (12) Depression: Plan Patient is an 88 year old female with PMHx significant for HTN, HLD, atrial fibrillation, COPD, chronic hypoxic hypercapnic respiratory failure, CKD III, depression who presented to the ER with c/o abnormal labs with Hgb: 6.9 today. Acute Blood Loss Anemia Possible GI bleed hx of Gastric ulcers Presented from [facility] for noted hgb of 6.9 On arrival in ED, hgb 8.1 on repeat Possible GI bleed, pt with previous EGD in chart from 2022 noting gastric ulcers +heme positive stool in ER In ER given Protonix IV Held home Eliquis and aspirin Iron levels noted to be low Anemia appears macrocytic, b12 and folate levels normal/supplemented GI consulted, appreciate recs -continue IV protonix -Continue current therapy and supportive care -will consider EGD if symptoms worsen or overt GI bleeding noted Continue IV protonix Trend H/H and transfuse as needed IV Venofer Continue to monitor 01/03- hgb 7.1, per recs of nephrology, transfused 1U pRBC with IV Lasix 40mg. Repeat H/H pending MISAEL (acute kidney injury) MISAEL on CKD III BUN: 51, Cr: 2.6. Baseline Cr: ~1.2 Gentle IVF Hold nephrotoxic agents when possible Monitor renal function nephrology consulted, appreciate recs Elevated troponin Troponin: 17-->15 EKG: sinus rhythm, t wave inversions inferior leads, chronic LBBB Possible demand ischemia in setting of anemia Denies CP, current SOB Flat, doubt ACS UTI (urinary tract infection) Recent UTI on Cipro to 250 mg twice daily x 7 days, started on on evening of 12/27/2023. Hold home Cipro. Will finish course with Rocephin Repeat UA unremarkable, received 2 doses of rocephin Discontinued on 01/02 Hip pain, left Reported left hip pain. Has been on scheduled Tylenol, as needed oxycodone for severe pain at [facility] Continue scheduled Tylenol, as needed oxycodone severe pain COPD (chronic obstructive pulmonary disease) Chronic hypoxic respiratory failure On chronic 3 L oxygen via nasal cannula No signs of acute exacerbation currently Continue home supplemental oxygen, goal 90% Continue home inhalers, guaifenesin and as needed nebs Currently at baseline Paroxysmal atrial fibrillation Anticoagulated on Eliquis Current sinus rhythm Hold Eliquis currently Continue amiodarone, metoprolol succinate cardiology consulted for recs re: Rebekah, appreciate recs CAD Calcific aortic stenosis, status post TAVR Aspirin currently on hold Continue statin for CAD CHF Home lasix currently on hold HTN (hypertension) BP on lower end on admission Held amlodipine but continued metoprolol succ 12.5mg BID BP improving Dyslipidemia Continue atorvastatin Depression Continue fluoxetine DVT Prophylaxis: SCDs in setting of acute GI bleed DNR/DNI as per discussion with pt Dispo: PT/OT ordered, from [facility] Admission and Anticipated Discharge Date Admission Date: January 02, 2024 Subjective Pt was seen in the AM. Stated that she felt the same. Abdomen switch tender. Review of Systems Review of Systems: All systems reviewed & are unremarkable except as noted in Subjective Physical Exam Physical Exam: General: Alert, oriented Skin: No noted rashes or bruises Psych: Appropriate mood and affect Neuro:difficulty with movements in the bed HEENT: NC/AT Chest: Nontender to palpation. CV: RRR Resp: no increased effort of breathing Abdomen: Soft, diffusely tender Extremities: Edema noted Results & Data Results & Data Vital Signs (Past 12 Hours) Vital Signs Temp Pulse Pulse Resp BP Pulse Ox O2 Del Method 01/04/24 08:32 63 01/04/24 07:54 36.7 C 65 17 115/71 99 Nasal Cannula 01/04/24 07:29 Nasal Cannula 01/04/24 04:05 36.6 C 68 14 105/64 100 Nasal Cannula 01/03/24 23:32 36.7 C 67 16 95/59 L 99 Nasal Cannula 01/03/24 23:00 69 O2 Flow Rate 01/04/24 08:32 01/04/24 07:54 01/04/24 07:29 3 01/04/24 04:05 3 01/03/24 23:32 3 01/03/24 23:00
[2024-01-04 18:13] LABS: Hematocrit (blood only) 29.6 % (37.0-47.0); Hemoglobin 9.5 g/dl (12.0-16.0)
[2024-01-05 06:52] LABS: Albumin Level 1.8 gm/dl (3.4-5.0); Bilirubin,Total 0.5 mg/dl (0.2-1.0); Calcium 7.4 mg/dl (8.6-10.3); Magnesium 2.6 mg/dl (1.7-2.4); Potassium 4.3 mmol/L (3.5-5.1)
[2024-01-05 07:03] LABS: Albumin Globulin Ratio 0.8 (0.9-2); BUN Creatinine Ratio 20.2 (10-20); Creatinine Clr Calc Pharmacy 15.7 ml/min; Est GFR (African American) 22.9 ml/min; Est GFR (Non-African American) 19.7 ml/min; Globulin 2.2 gm/dl (2.5-4.0); Phosphorus 3.4 mg/dl (2.5-4.9)
[2024-01-05 07:09] LABS: Hematocrit (blood only) 26.9 % (37.0-47.0); Hemoglobin 8.5 g/dl (12.0-16.0); Mean Corpuscular Hemoglobin 31.1 pg (25.0-34.0); Mean Corpuscular Hgb Conc 31.6 g/dL (32.0-36.0); Mean Corpuscular Volume 98.5 fL (80.0-100.0); Platelet Count 201 K/uL (130-400); RDW Coefficient of Variation 21.3 % (11.5-14.5); RDW Standard Deviation 76.2 fL (36.4-46.3); Red Blood Count 2.73 M/uL (4.20-5.40); White Blood Count 11.34 K/ul (4.8-10.8)
--- NOTE | 2024-01-05 11:40 | Gastroenterology Progress Note ---
Date of Service January 05, 2024 Assessment & Plan (1) Anemia: Plan: -Continue Pantoprazole 40 mg BID -Advance diet as tolerated -Continue current therapy and supportive care -No plans for invasive workup at this time, as it would likely not change current management Admission and Anticipated Discharge Date Admission Date: January 02, 2024 Subjective Sitting up in chair at time of my evaluation. Feeling slightly better today. Definitely less abdominal pain. She has tolerated PO intake thusfar. No further nausea/vomiting, and no evidence of hematemesis, melena or hematochezia. She denies any further complaints. Review of Systems Review of Systems: All systems reviewed & are unremarkable except as noted in Subjective Physical Exam Constitutional: + ill appearing (chronic); no acute dist ress Respiratory: normal respiratory effort; no respiratory distress Auscultation: + diminished lung sounds Cardiovascular: RRR, no murmur, no edema Gastrointestinal (Abdomen): Inspection/Auscultation: abdomen normal to inspection and normal bowel sounds; abdomen not distended Percussion/Palpation: + abdomen tender (mid-epigastric area) and abdomen soft Psychiatric: Orientation: alert and oriented x 3 Affect: + depressed affect Results & Data Results & Data Vital Signs (Past 12 Hours) Vital Signs Temp Pulse Pulse Resp BP Pulse Ox O2 Del Method 01/05/24 10:25 Nasal Cannula 01/05/24 07:46 36.9 C 73 16 90/48 L 96 Nasal Cannula 01/05/24 07:23 63 01/05/24 06:28 36.4 C L 70 18 95/56 L 98 Nasal Cannula 01/05/24 03:03 37.0 C 71 18 84/45 L 98 Nasal Cannula 01/05/24 01:51 Nasal Cannula O2 Flow Rate 01/05/24 10:25 1 01/05/24 07:46 1 01/05/24 07:23 01/05/24 06:28 1.5 01/05/24 03:03 3 01/05/24 01:51 3 PG Care Time/CCT Total # of Minutes Spent Total Time Spent with Patient: Total time spent is greater than 50% in coordination of care (as documented) at patient's floor/unit and/or counseling patient: Coding Level of Care Code 97760 SUB INP/OBS CARE 3/50MIN Diagnoses Anemia D64.9
--- NOTE | 2024-01-05 12:59 | Hospitalist Progress Note ---
Date of Service January 05, 2024 Assessment & Plan (1) Anemia: (2) GI bleed: (3) MISAEL (acute kidney injury): (4) Elevated troponin: (5) UTI (urinary tract infection): (6) COPD (chronic obstructive pulmonary disease): (7) Chronic hypoxic respiratory failure: (8) Paroxysmal atrial fibrillation: (9) HTN (hypertension): (10) Dyslipidemia: (11) Hip pain, left: (12) Depression: Plan Patient is an 88 year old female with PMHx significant for HTN, HLD, atrial fibrillation, COPD, chronic hypoxic hypercapnic respiratory failure, CKD III, depression who presented to the ER with c/o abnormal labs with Hgb: 6.9 today. Acute Blood Loss Anemia Possible GI bleed hx of Gastric ulcers Presented from [facility] for noted hgb of 6.9 On arrival in ED, hgb 8.1 on repeat Possible GI bleed, pt with previous EGD in chart from 2022 noting gastric ulcers +heme positive stool in ER In ER given Protonix IV Held home Eliquis and aspirin Iron levels noted to be low Anemia appears macrocytic, b12 and folate levels normal/supplemented GI consulted, appreciate recs -continue po protonix 40mg BID -Continue current therapy and supportive care -will consider EGD if symptoms worsen or overt GI bleeding noted, 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 Repeat H/H pending 01/04- pt feeling better, hgb 9.5 to 8.5 today post transfusion. MISAEL (acute kidney injury) MISAEL on CKD III BUN: 51, Cr: 2.6. Baseline Cr: ~1.2 Gentle IVF Hold nephrotoxic agents when possible Monitor renal function nephrology consulted, appreciate recs -improving Elevated troponin Troponin: 17-->15 EKG: sinus rhythm, t wave inversions inferior leads, chronic LBBB Possible demand ischemia in setting of anemia Denies CP, current SOB Flat, doubt ACS UTI (urinary tract infection) Recent UTI on Cipro to 250 mg twice daily x 7 days, started on on evening of 12/27/2023. Hold home Cipro. Will finish course with Rocephin Repeat UA unremarkable, received 2 doses of rocephin Discontinued on 01/02 Hip pain, left Reported left hip pain. Has been on scheduled Tylenol, as needed oxycodone for severe pain at [facility] Continue scheduled Tylenol, as needed oxycodone severe pain COPD (chronic obstructive pulmonary disease) Chronic hypoxic respiratory failure On chronic 3 L oxygen via nasal cannula No signs of acute exacerbation currently Continue home supplemental oxygen, goal 90% Continue home inhalers, guaifenesin and as needed nebs Currently at baseline Paroxysmal atrial fibrillation Anticoagulated on Eliquis Current sinus rhythm Hold Eliquis currently Continue amiodarone, metoprolol succinate cardiology consulted for recs re: Rebekah, appreciate recs CAD Calcific aortic stenosis, status post TAVR Aspirin currently on hold Continue statin for CAD CHF Home lasix currently on hold HTN (hypertension) BP on lower end on admission Held amlodipine but continued metoprolol succ 12.5mg BID BP improving Dyslipidemia Continue atorvastatin Depression Continue fluoxetine DVT Prophylaxis: SCDs in setting of acute GI bleed DNR/DNI as per discussion with pt Dispo: PT/OT ordered, from [facility] with bedhold Admission and Anticipated Discharge Date Admission Date: January 02, 2024 Subjective Pt stated that she was feeling better today though "nothing to write home about" Has been eating and tolerating. Was sitting in chair at bedside. Otherwise denied acute concerns. Review of Systems Review of Systems: All systems reviewed & are unremarkable except as noted in Subjective Physical Exam Physical Exam: General: Alert, oriented Skin: No noted rashes or bruises Psych: Appropriate mood and affect Neuro:difficulty with movements in the bed HEENT: NC/AT Chest: Nontender to palpation. CV: RRR Resp: no increased effort of breathing Abdomen: Soft, diffusely tender Extremities: Edema noted Results & Data Results & Data Vital Signs (Past 12 Hours) Vital Signs Temp Pulse Pulse Resp BP Pulse Ox O2 Del Method 01/05/24 11:41 36.5 C 60 16 91/58 L 96 Nasal Cannula 01/05/24 10:25 Nasal Cannula 01/05/24 07:46 36.9 C 73 16 90/48 L 96 Nasal Cannula 01/05/24 07:23 63 01/05/24 06:28 36.4 C L 70 18 95/56 L 98 Nasal Cannula 01/05/24 03:03 37.0 C 71 18 84/45 L 98 Nasal Cannula 01/05/24 01:51 Nasal Cannula O2 Flow Rate 01/05/24 11:41 1 01/05/24 10:25 1 01/05/24 07:46 1 01/05/24 07:23 01/05/24 06:28 1.5 01/05/24 03:03 3 01/05/24 01:51 3
[2024-01-06 07:49] LABS: Hemoglobin 8.7 g/dl (12.0-16.0); Mean Corpuscular Hemoglobin 31.1 pg (25.0-34.0); Mean Corpuscular Hgb Conc 31.1 g/dL (32.0-36.0); Mean Platelet Volume 10.6 fL (9.4-12.4); Platelet Count 215 K/uL (130-400); RDW Coefficient of Variation 20.1 % (11.5-14.5); White Blood Count 9.75 K/ul (4.8-10.8)
[2024-01-06 08:06] LABS: Albumin Globulin Ratio 0.9 (0.9-2); Albumin Level 1.9 gm/dl (3.4-5.0); BUN Creatinine Ratio 21.5 (10-20); Bilirubin,Total 0.4 mg/dl (0.2-1.0); Calcium 7.4 mg/dl (8.6-10.3); Creatinine Clr Calc Pharmacy 19.9 ml/min; Est GFR (African American) 29.4 ml/min; Est GFR (Non-African American) 25.4 ml/min; Globulin 2.2 gm/dl (2.5-4.0); Magnesium 2.6 mg/dl (1.7-2.4); Phosphorus 2.6 mg/dl (2.5-4.9); Potassium 3.7 mmol/L (3.5-5.1); Total Protein 4.1 gm/dl (6.0-8.3)
[2024-01-06] MEDS: PANTOprazole 40 MG TAB PO SCH (08:16)
--- NOTE | 2024-01-06 12:15 | Hospitalist Progress Note ---
Date of Service January 06, 2024 Assessment & Plan (1) Anemia: (2) GI bleed: (3) MISAEL (acute kidney injury): (4) Elevated troponin: (5) UTI (urinary tract infection): (6) COPD (chronic obstructive pulmonary disease): (7) Chronic hypoxic respiratory failure: (8) Paroxysmal atrial fibrillation: (9) HTN (hypertension): (10) Dyslipidemia: (11) Hip pain, left: (12) Depression: Plan Patient is an 88 year old female with PMHx significant for HTN, HLD, atrial fibrillation, COPD, chronic hypoxic hypercapnic respiratory failure, CKD III, depression who presented to the ER with c/o abnormal labs with Hgb: 6.9 today. Acute Blood Loss Anemia Possible GI bleed hx of Gastric ulcers Presented from [facility] for noted hgb of 6.9 On arrival in ED, hgb 8.1 on repeat Possible GI bleed, pt with previous EGD in chart from 2022 noting gastric ulcers +heme positive stool in ER In ER given Protonix IV Held home Eliquis and aspirin Iron levels noted to be low Anemia appears macrocytic, b12 and folate levels normal/supplemented GI consulted, appreciate recs -continue po protonix 40mg BID -Continue current therapy and supportive care -will consider EGD if symptoms worsen or overt GI bleeding noted, 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 Repeat H/H pending 01/04- pt feeling better, hgb 9.5 to 8.5 today post transfusion. 01/05-Stable, Pt/OT reordered MISAEL (acute kidney injury) MISAEL on CKD III BUN: 51, Cr: 2.6. Baseline Cr: ~1.2 Gentle IVF Hold nephrotoxic agents when possible Monitor renal function nephrology consulted, appreciate recs -improving Elevated troponin Troponin: 17-->15 EKG: sinus rhythm, t wave inversions inferior leads, chronic LBBB Possible demand ischemia in setting of anemia Denies CP, current SOB Flat, doubt ACS UTI (urinary tract infection) Recent UTI on Cipro to 250 mg twice daily x 7 days, started on on evening of 12/27/2023. Hold home Cipro. Will finish course with Rocephin Repeat UA unremarkable, received 2 doses of rocephin Discontinued on 01/02 Hip pain, left Reported left hip pain. Has been on scheduled Tylenol, as needed oxycodone for severe pain at [facility] Continue scheduled Tylenol, as needed oxycodone severe pain COPD (chronic obstructive pulmonary disease) Chronic hypoxic respiratory failure On chronic 3 L oxygen via nasal cannula No signs of acute exacerbation currently Continue home supplemental oxygen, goal 90% Continue home inhalers, guaifenesin and as needed nebs Currently at baseline Paroxysmal atrial fibrillation Anticoagulated on Eliquis Current sinus rhythm Hold Eliquis currently Continue amiodarone, metoprolol succinate cardiology consulted for recs re: Anquis, appreciate recs CAD Calcific aortic stenosis, status post TAVR Aspirin currently on hold Continue statin for CAD CHF Home lasix currently on hold HTN (hypertension) BP on lower end on admission Held amlodipine but continued metoprolol succ 12.5mg BID BP improving Dyslipidemia Continue atorvastatin Depression Continue fluoxetine DVT Prophylaxis: SCDs in setting of acute GI bleed DNR/DNI as per discussion with pt Dispo: PT/OT ordered, from [facility] with bedhold Admission and Anticipated Discharge Date Admission Date: January 02, 2024 Subjective Pt stated that she was feeling better. Was laying in bed Review of Systems Review of Systems: All systems reviewed & are unremarkable except as noted in Subjective Physical Exam Physical Exam: General: Alert, oriented Skin: No noted rashes or bruises Psych: Appropriate mood and affect Neuro:difficulty with movements in the bed HEENT: NC/AT Chest: Nontender to palpation. CV: RRR Resp: no increased effort of breathing Abdomen: Soft, diffusely tender Extremities: Edema noted Results & Data Results & Data Vital Signs (Past 12 Hours) Vital Signs Temp Pulse Pulse Resp BP Pulse Ox O2 Del Method 01/06/24 11:19 36.3 C L 70 18 100/63 96 Nasal Cannula 01/06/24 10:43 Nasal Cannula 01/06/24 07:45 36.5 C 79 19 102/66 97 Nasal Cannula 01/06/24 06:59 83 01/06/24 03:59 Room Air 01/06/24 03:09 37.2 C 80 18 91/57 L 94 Nasal Cannula 01/06/24 00:17 80 18 86/46 L 97 Nasal Cannula O2 Flow Rate 01/06/24 11:19 01/06/24 10:43 1.5 01/06/24 07:45 01/06/24 06:59 01/06/24 03:59 01/06/24 03:09 1.5 01/06/24 00:17 1.5
--- NOTE | 2024-01-06 15:38 | Gastroenterology Progress Note ---
Date of Service January 06, 2024 Assessment & Plan (1) Anemia: Plan: -Doing better today and will Continue Pantoprazole 40 mg BID -Continue current therapy and supportive care -No plans for invasive workup at this time, as it would likely not change current management Admission and Anticipated Discharge Date Admission Date: January 02, 2024 Subjective Feeling better today. Eating better than yesterday. States that her epigastric pain has decreased from 5/10 yesterday to 3/10 today. She denies have any BM's overnight. She further denies any fevers, chills, nausea, vomiting, or other complaints. Review of Systems Review of Systems: All systems reviewed & are unremarkable except as noted in Subjective Physical Exam Constitutional: + ill appearing (Chronic); no acute dist ress Respiratory: normal respiratory effort, lungs clear to auscultation Cardiovascular: RRR, no murmur, no edema Gastrointestinal (Abdomen): normal bowel sounds, soft, nontender, no hepatosplenomegaly Psychiatric: A+Ox3, euthymic affect Results & Data Results & Data Vital Signs (Past 12 Hours) Vital Signs Temp Pulse Pulse Resp BP Pulse Ox O2 Del Method 01/06/24 15:32 36.7 C 80 18 96/54 L 98 Nasal Cannula 01/06/24 11:19 36.3 C L 70 18 100/63 96 Nasal Cannula 01/06/24 10:43 Nasal Cannula 01/06/24 07:45 36.5 C 79 19 102/66 97 Nasal Cannula 01/06/24 06:59 83 01/06/24 03:59 Room Air O2 Flow Rate 01/06/24 15:32 01/06/24 11:19 01/06/24 10:43 1.5 01/06/24 07:45 01/06/24 06:59 01/06/24 03:59 PG Care Time/CCT Total # of Minutes Spent Total Time Spent with Patient: Total time spent is greater than 50% in coordination of care (as documented) at patient's floor/unit and/or counseling patient: Coding Level of Care Code 44736 SUB INP/OBS CARE 3/50MIN Diagnoses Anemia D64.9
[2024-01-07 07:14] LABS: Hematocrit (blood only) 24.3 % (37.0-47.0); Hemoglobin 7.7 g/dl (12.0-16.0); Mean Corpuscular Hemoglobin 31.7 pg (25.0-34.0); Mean Corpuscular Hgb Conc 31.7 g/dL (32.0-36.0); Mean Platelet Volume 9.9 fL (9.4-12.4); Platelet Count 191 K/uL (130-400); RDW Coefficient of Variation 19.6 % (11.5-14.5); RDW Standard Deviation 71.3 fL (36.4-46.3); Red Blood Count 2.43 M/uL (4.20-5.40); White Blood Count 7.34 K/ul (4.8-10.8)
[2024-01-07 07:43] LABS: Albumin Globulin Ratio 0.9 (0.9-2); Albumin Level 1.7 gm/dl (3.4-5.0); BUN Creatinine Ratio 21.1 (10-20); Bilirubin,Total 0.4 mg/dl (0.2-1.0); Calcium 7.2 mg/dl (8.6-10.3); Creatinine Clr Calc Pharmacy 23.5 ml/min; Est GFR (African American) 36.8 ml/min; Est GFR (Non-African American) 31.8 ml/min; Magnesium 2.4 mg/dl (1.7-2.4); Phosphorus 2.4 mg/dl (2.5-4.9); Potassium 3.5 mmol/L (3.5-5.1); Total Protein 3.7 gm/dl (6.0-8.3)
[2024-01-07] MEDS ORDERED: POTASSIUM PHOS 3 MMOL/1 ML INFUSION IV STA (08:56)
[2024-01-07] MEDS: POTASSIUM PHOSPHATE 15 MMOL in SODIUM CHLORIDE 0.9% 250 ML IV ONE (09:27)
[2024-01-07 12:33] LABS: Hematocrit (blood only) 29.1 % (37.0-47.0); Hemoglobin 8.9 g/dl (12.0-16.0)
--- NOTE | 2024-01-07 13:55 | Hospitalist Progress Note ---
Date of Service January 07, 2024 Assessment & Plan (1) Anemia: (2) GI bleed: (3) MISAEL (acute kidney injury): (4) Elevated troponin: (5) UTI (urinary tract infection): (6) COPD (chronic obstructive pulmonary disease): (7) Chronic hypoxic respiratory failure: (8) Paroxysmal atrial fibrillation: (9) HTN (hypertension): (10) Dyslipidemia: (11) Hip pain, left: (12) Depression: Plan Patient is an 88 year old female with PMHx significant for HTN, HLD, atrial fibrillation, COPD, chronic hypoxic hypercapnic respiratory failure, CKD III, depression who presented to the ER with c/o abnormal labs with Hgb: 6.9 today. Acute Blood Loss Anemia Possible GI bleed hx of Gastric ulcers Presented from [facility] for noted hgb of 6.9 On arrival in ED, hgb 8.1 on repeat Possible GI bleed, pt with previous EGD in chart from 2022 noting gastric ulcers +heme positive stool in ER In ER given Protonix IV Held home Eliquis and aspirin Iron levels noted to be low Anemia appears macrocytic, b12 and folate levels normal/supplemented GI consulted, appreciate recs -continue po protonix 40mg BID -Continue current therapy and supportive care -will consider EGD if symptoms worsen or overt GI bleeding noted, 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 Repeat H/H pending 01/04- pt feeling better, hgb 9.5 to 8.5 today post transfusion. 01/05-Stable, Pt/OT reordered 01/06- hgb low in AM at 7.7 discussed with nephrology, rechecked H/H and was 8.9. MISAEL (acute kidney injury) MISAEL on CKD III BUN: 51, Cr: 2.6. Baseline Cr: ~1.2 Gentle IVF Hold nephrotoxic agents when possible Monitor renal function nephrology consulted, appreciate recs -improving Elevated troponin Troponin: 17-->15 EKG: sinus rhythm, t wave inversions inferior leads, chronic LBBB Possible demand ischemia in setting of anemia Denies CP, current SOB Flat, doubt ACS UTI (urinary tract infection) Recent UTI on Cipro to 250 mg twice daily x 7 days, started on on evening of 12/27/2023. Hold home Cipro. Will finish course with Rocephin Repeat UA unremarkable, received 2 doses of rocephin Discontinued on 01/02 Hip pain, left Reported left hip pain. Has been on scheduled Tylenol, as needed oxycodone for s evere pain at [facility] [place] Continue scheduled Tylenol, as needed oxycodone severe pain COPD (chronic obstructive pulmonary disease) Chronic hypoxic respiratory failure On chronic 3 L oxygen via nasal cannula No signs of acute exacerbation currently Continue home supplemental oxygen, goal 90% Continue home inhalers, guaifenesin and as needed nebs Currently at baseline Paroxysmal atrial fibrillation Anticoagulated on Eliquis Current sinus rhythm Hold Eliquis currently Continue amiodarone, metoprolol succinate cardiology consulted for recs re: Rebekah, appreciate recs CAD Calcific aortic stenosis, status post TAVR Aspirin currently on hold Continue statin for CAD CHF Home lasix currently on hold HTN (hypertension) BP on lower end on admission Held amlodipine but continued metoprolol succ 12.5mg BID BP improving Dyslipidemia Continue atorvastatin Depression Continue fluoxetine DVT Prophylaxis: SCDs in setting of acute GI bleed DNR/DNI as per discussion with pt Dispo: PT/OT ordered, from [facility] with bedhold Admission and Anticipated Discharge Date Admission Date: January 02, 2024 Subjective Seen in the AM. Sitting in chair. States better than day before. Review of Systems Review of Systems: All systems reviewed & are unremarkable except as noted in Subjective Physical Exam Physical Exam: General: Alert, oriented Skin: No noted rashes or bruises Psych: Appropriate mood and affect Neuro:difficulty with movements HEENT: NC/AT Chest: Nontender to palpation. CV: RRR Resp: no increased effort of breathing Abdomen: Soft, diffusely tender Extremities: Edema noted Results & Data Results & Data Vital Signs (Past 12 Hours) Vital Signs Temp Pulse Pulse Resp BP Pulse Ox O2 Del Method 01/07/24 11:08 36.4 C L 68 18 104/50 L 95 Room Air 01/07/24 09:00 Nasal Cannula 01/07/24 07:49 36.5 C 74 18 95/58 L 92 Nasal Cannula 01/07/24 07:00 67 01/07/24 03:41 36.8 C 74 18 106/49 L 97 Nasal Cannula O2 Flow Rate 01/07/24 11:08 01/07/24 09:00 1 01/07/24 07:49 1 01/07/24 07:00 01/07/24 03:41 0.5
--- NOTE | 2024-01-07 20:34 | Nephrology Progress Note ---
Date of Service January 07, 2024 Assessment & Plan (1) MISAEL (acute kidney injury): Plan: improving; baseline creatinine labile but about 1.5 from previous baseline 1.2. Lot of Comorbid Dz pool end stage COPD which makes her very prone to develop ATN. With GI bleed and severe Anemia she developed ischemic ATN. Creat is rising but current creat is only slightly higher than from 12/26. >resolved for now >if creat remains in this range another day, can keep hgb more >7 (normal transfusion parameters) than > 8; hgb improved on recheck today and no pRBC needed (2) CKD (chronic kidney disease), stage III: Plan: MISAEL on background CKD ( creat has been worsening lately). previously baseline 1.2. Continue Supportive care. Avoid nephrotoxic drugs. Daily labs. No dialysis needed now and she will not be a candidate if such need arise. Will sign off; no particular nephro follow up needed except to continue to maintain hgb and BP > keep MAP > 60 Can f/u w/ primary team at [facility] > recommend after d/c check hgb, bmp weekly x 3 > if worsening renal function, refer to nephro OP; would not d/c on amlodipine (3) Anemia due to blood loss: (4) GI bleed: Plan: O protonix drip and eliquis on hold. GI bleed is the trigger for MISAEL sec to ATN Admission and Anticipated Discharge Date Admission Date: January 02, 2024 Subjective seen on evening rounds; no worsening sob; feels edema acceptable; backside is sore from sitting in chair she states Review of Systems 2 Review of Systems: All systems reviewed & are unremarkable except as noted in Subjective Physical Exam 2 Constitutional: well developed and well nourished Eyes: EOM intact bilaterally ENMT: Ears: no external ear abnormality Nose: no external nose abnormality Mouth: + dry oral mucous membranes Neck: no nuchal rigidity Respiratory: normal respiratory effort Auscultation: + diminished lung sounds Cardiovascular: Rate/Rhythm: regular rate and regular rhythm Extremities: + edema (trace) Gastrointestinal (Abdomen): Inspection/Auscultation: normal bowel sounds P ercussion/Palpation: + abdomen tender (lower mid abdomen to moderate palpation) and abdomen soft Musculoskeletal: Extremities: strength 5/5 throughout Skin: no rashes, warm and dry Neurologic: doan, fluent speech, no tremor Results & Data Vital Signs (Past 12 Hours) Vital Signs Temp Pulse Pulse Resp BP BP Pulse Ox 01/07/24 19:54 37.1 C 104 H 20 99/56 L 94 01/07/24 14:42 36.5 C 65 18 90/58 L 94 01/07/24 13:59 64 01/07/24 11:08 36.4 C L 68 18 104/50 L 95 01/07/24 09:00 O2 Del Method O2 Flow Rate 01/07/24 19:54 Nasal Cannula 1 01/07/24 14:42 Nasal Cannula 1 01/07/24 13:59 01/07/24 11:08 Room Air 01/07/24 09:00 Nasal Cannula 1 Laboratory Results 01/07/24 12:02 01/07/24 06:54 (4) GI bleed GI bleed type/associated pathology: unspecified gastrointestinal hemorrhage type Qualified Code(s): K92.2 - Gastrointestinal hemorrhage, unspecified
[2024-01-08 07:52] LABS: Albumin Globulin Ratio 0.8 (0.9-2); Albumin Level 1.7 gm/dl (3.4-5.0); Bilirubin,Total 0.4 mg/dl (0.2-1.0); Calcium 7.4 mg/dl (8.6-10.3); Creatinine Clr Calc Pharmacy 26.9 ml/min; Est GFR (African American) 42.7 ml/min; Est GFR (Non-African American) 36.9 ml/min; Globulin 2.2 gm/dl (2.5-4.0); Magnesium 2.4 mg/dl (1.7-2.4); Phosphorus 3.1 mg/dl (2.5-4.9); Potassium 4.4 mmol/L (3.5-5.1); Total Protein 3.9 gm/dl (6.0-8.3)
[2024-01-08 08:24] LABS: Hemoglobin 8.6 g/dl (12.0-16.0); Mean Corpuscular Hemoglobin 32.3 pg (25.0-34.0); Mean Corpuscular Hgb Conc 33.1 g/dL (32.0-36.0); Mean Corpuscular Volume 97.7 fL (80.0-100.0); Mean Platelet Volume 10.1 fL (9.4-12.4); Platelet Count 204 K/uL (130-400); RDW Coefficient of Variation 19.2 % (11.5-14.5); RDW Standard Deviation 68.3 fL (36.4-46.3); Red Blood Count 2.66 M/uL (4.20-5.40)
--- NOTE | 2024-01-08 11:17 | Hospitalist Progress Note ---
Date of Service January 08, 2024 Assessment & Plan (1) Anemia: (2) GI bleed: (3) MISAEL (acute kidney injury): (4) Elevated troponin: (5) UTI (urinary tract infection): (6) COPD (chronic obstructive pulmonary disease): (7) Chronic hypoxic respiratory failure: (8) Paroxysmal atrial fibrillation: (9) HTN (hypertension): (10) Dyslipidemia: (11) Hip pain, left: (12) Depression: Plan Patient is an 88 year old female with PMHx significant for HTN, HLD, atrial fibrillation, COPD, chronic hypoxic hypercapnic respiratory failure, CKD III, depression who presented to the ER with c/o abnormal labs with Hgb: 6.9. Acute Blood Loss Anemia Possible GI bleed hx of Gastric ulcers Presented from [facility] for noted hgb of 6.9 On arrival in ED, hgb 8.1 on repeat Possible GI bleed, pt with previous EGD in chart from 2022 noting gastric ulcers +heme positive stool in ER In ER given Protonix IV Held home Eliquis and aspirin Iron levels noted to be low Anemia appears macrocytic, b12 and folate levels normal/supplemented GI consulted, appreciate recs -continue po protonix 40mg BID -Continue current therapy and supportive care -will consider EGD if symptoms worsen or overt GI bleeding noted, notes will likely not manager change Continue IV protonix Trend H/H and transfuse as needed IV Venofer Continue to monitor 01/03- hgb 7.1, per recs of nephrology, transfused 1U pRBC with IV Lasix 40mg. Repeat H/H pending 01/04- pt feeling better, hgb 9.5 to 8.5 today post transfusion. 01/05-Stable, Pt/OT reordered 01/06- hgb low in AM at 7.7 discussed with nephrology, rechecked H/H and was 8.9. 01/07- hgb stable >8 Paroxysmal atrial fibrillation Anticoagulated on Eliquis, currently on hold in setting of above per Cardiology risk/benefit Was in sinus rhythm, however on 01/07 noted runs of atrial tachycardia/a fib on telemetry Pt currently on amiodarone 200mg daily, metoprolol succinate 12.5mg BID -noted that both metorpolol doses were held the day before for parameters cardiology consulted, appreciate further recs HTN (hypertension) BP on lower end on admission Held amlodipine but continued metoprolol succ 12.5mg BID Home Lasix also on hole (see below) Continue to monitor CAD Calcific aortic stenosis, status post TAVR Aspirin currently on hold Continue statin for CAD CHF On low dose Lasix 20 mg MWF only Home lasix currently on hold in setting of MISAEL (see below) and hypotension Resume as able Appreciate cardiology recs MISAEL (acute kidney injury) MISAEL on CKD III BUN: 51, Cr: 2.6. Baseline Cr: ~1.2 Gentle IVF Hold nephrotoxic agents when possible Monitor renal function nephrology consulted, appreciate recs Improving Elevated troponin Troponin: 17-->15 EKG: sinus rhythm, t wave inversions inferior leads, chronic LBBB Possible demand ischemia in setting of anemia Denies CP, current SOB Flat, doubt ACS UTI (urinary tract infection) Recent UTI on Cipro to 250 mg twice daily x 7 days, started on on evening of 12/27/2023. Hold home Cipro. Will finish course with Rocephin Repeat UA unremarkable, received 2 doses of rocephin Discontinued on 01/02 Hip pain, left Reported left hip pain. Has been on scheduled Tylenol, as needed oxycodone for severe pain at [facility] Continue scheduled Tylenol, as needed oxycodone severe pain COPD (chronic obstructive pulmonary disease) Chronic hypoxic respiratory failure On chronic 3 L oxygen via nasal cannula No signs of acute exacerbation currently Continue home supplemental oxygen, goal 90% Continue home inhalers, guaifenesin and as needed nebs Currently at baseline Dyslipidemia Continue atorvastatin Depression Continue fluoxetine DVT Prophylaxis: SCDs in setting of acute GI bleed DNR/DNI as per discussion with pt Dispo: PT/OT ordered, from [facility] with bedhold Admission and Anticipated Discharge Date Admission Date: January 02, 2024 Subjective Pt was seen in the AM, laying in bed Per nursing had a sneezing episode when atrial tachycardia was noted on telemetry. Later per telemetry, pt having episodes of atrial fibrillation. EKG subsequently obtained. Pt asymptomatic. Review of Systems Review of Systems: All systems reviewed & are unremarkable except as noted in Subjective Physical Exam Physical Exam: General: Alert, oriented Skin: No noted rashes or bruises Psych: Appropriate mood and affect Neuro:difficulty with movements HEENT: NC/AT Chest: Nontender to palpation. CV: RRR Resp: no increased effort of breathing Abdomen: Soft, diffusely tender Extremities: Edema noted Results & Data Results & Data Vital Signs (Past 12 Hours) Vital Signs Temp Pulse Pulse Resp BP BP Pulse Ox 01/08/24 11:10 36.3 C L 102 H 15 98/62 L 98 01/08/24 08:00 01/08/24 07:17 36.5 C 76 16 110/64 94 01/08/24 07:00 77 01/08/24 03:44 36.6 C 69 18 116/65 96 01/08/24 00:14 36.9 C 76 18 115/64 99 O2 Del Method O2 Flow Rate 01/08/24 11:10 Nasal Cannula 1 01/08/24 08:00 Nasal Cannula 1 01/08/24 07:17 Room Air 01/08/24 07:00 01/08/24 03:44 Nasal Cannula 2 01/08/24 00:14 Nasal Cannula 2
--- NOTE | 2024-01-08 14:31 | Cardiology Progress Note ---
Date of Service January 08, 2024 Assessment & Plan (1) GI bleed: (2) Anemia due to blood loss: (3) Elevated troponin: (4) Paroxysmal atrial fibrillation: (5) Chronic heart failure with preserved ejection fraction (HFpEF): (6) Coronary artery disease: (7) S/P TAVR (transcatheter aortic valve replacement): (8) COPD (chronic obstructive pulmonary disease) with emphysema: Plan IMPRESSION: Medically complex 88 year old female presents with symptomatic blood loss anemia with a presenting hgb of 6.9. On Eliquis due to history of PAF in the setting of PNA and anaplasmosis. Eliquis was placed on hold at time of admission Also carries history of nonobstructive CAD, TAVR, TIA-- on ASA 81 mg daily PLAN: PAF: Review of telemetry today demonstrates multiple short burst of atrial tachycardia along with 2 noted epiosdes of A-fib/flutter. These were from 0924- 0938, and again 8301-1222 with highest rates in the 130's. Patient is currently on Amiodarone for rhythm control and Toprol xl for rate control. Givenher lower blood pressure, not a lot of room to increase therapies at this time. History of traumatic subarachnoid hemorrhage of DAPT. -Given symptomatic anemia and active GIB risk of continuation of Eliquis outweighs the benefit. Okay to hold at this time. Patient in agreement. This was again discussed with patient today in light of recurrence of A-fib, agree to continue to hold Eliquis at this time. -Continue to monitor on telemetry while inpatient -K goal of 4.0 and mag goal of 2.0, replace as needed. Chronic HFpEF: Patient appears mildly hypervolemic on exam, although unclear what her baseline looks like. Normally maintains on low dose Lasix 20 mg MWF only which is on hold at this time. Received IVF due to renal dysfunction. Serum cr remains elevated above baseline (2.6) Appreciate nephrology recommendations. -continue 2g sodium restriction -Strict I&O and daily weights. CAD: Nonobstructive per cath 01/2019 Stable, no angina. Elevated troponin likely in the setting of demand given symptomatic blood loss anemia and MISAEL. -Resume ASA when clinically stable. -Continue Statin S/p TAVR: Status post TAVR (# 23 mm Aldridge Brice S3 valve), 05/16/2019 TAVR gradients stable per most recent echo 10/2023 Left bundle branch block noted post TAVR 05/27/2019. -Resume ASA when clinically stable. GIB/Anemia: Hgb 6.9>>8.1>>7.5>>7.7 On PPI Management per primary service and GI-- appreciate GI recommendations. Continue current medication regimen with close monitoring on telemetry, will not resume Eliquis at this time and monitor for Hgb to stabilize in the setting of an acute GI bleed. No changes to Amiodarone or toprol xl at this time given brief episodes of A-fib and in the setting of low blood pressures. Case has been discussed with Dr. Singh. Further recommendations regarding plan of care as per his assessment. I spent a total of 30 minutes on the date of service in preparation, delivery, documentation of the care provided to the patient excluding any time spent in the performance of separately billed services. EWRIN [facility] Cardiology [facility] Admission and Anticipated Discharge Date Admission Date: January 02, 2024 Supervising Physician Co-Signing Physician Notes Attending attestation: Case reviewed with the advanced practitioner. I have personally performed a history and physical examination on the patient. I have reviewed the advanced practitioner's documentation on the date of service referenced in note, and I agree with, and take responsibility for the plan of care. Episodes of narrow complex tachycardia with regular RR interval consistent with supraventricular tachycardia as well as episodes of paroxysmal atrial fibrillation. Longest episode was about 2 hours this afternoon. Patient asymptomatic from a palpitation standpoint when I asked her about it. Continue to hold aspirin and Eliquis. I do not anticipate reinitiating Eliquis due to bleeding risk, frailty. Patient has missed several doses of metoprolol due to holding parameters. I changed the holding parameters to hold the medication for heart rate less than 60 and a systolic blood pressure less than 95 mmHg. Continue prior to hospital treatment with amiodarone. Of note, it appears that she had recently been treated with ciprofloxacin as an outpatient, would avoid use of this medication in the setting of chronic amiodarone therapy. EKG today revealed SVT versus atrial fibrillation 107 bpm with left bundle branch block. I spent a total of 30 minutes coordinating, documenting, and providing care for this patient excluding time spent in the performance of separately billed services or time spent by another provider. Mark Singh DO Subjective 01/08/2024: Patient seen in follow up today per request of hospitalist after notification of possible A-fib events on telemetry. Patient was seen and examined at bedside. She is resting comfortably in bed. offers no complaints. Denies any chest pain, or pressure. She reports an occasional feeling that her heart is racing, but does not feel that it is bothersome. Carries a history of Paroxysmal A-fib, no knowledge or any recurrence until today on telemetry. Rebekah is currently on hold due to GI bleed and anemia. BP low normal. Labs, telemetry, diagnostics and documentation reviewed. Review of Systems Review of Systems: All systems reviewed & are unremarkable except as noted in HPI & below Physical Exam Constitutional: well developed and well nourished; no acute distress Neck: normal visual inspection and trachea midline Respiratory: normal respiratory effort, lungs clear to auscultation Cardiovascular: Rate/Rhythm: regular rate and regular rhythm Heart Sounds: normal S1 and normal S2; no murmur Vessels: dorsalis pedis pulses present; no JVD Extremities: + edema (+1 BLE) Skin: no rashes, warm and dry Psychiatric: A+Ox3, euthymic affect Results & Data Vital Signs (Past 12 Hours) Vital Signs Temp Pulse Pulse Resp BP BP Pulse Ox 01/08/24 11:10 36.3 C L 102 H 15 98/62 L 98 01/08/24 08:00 01/08/24 07:17 36.5 C 76 16 110/64 94 01/08/24 07:00 77 01/08/24 03:44 36.6 C 69 18 116/65 96 O2 Del Method O2 Flow Rate 01/08/24 11:10 Nasal Cannula 1 01/08/24 08:00 Nasal Cannula 1 01/08/24 07:17 Room Air 01/08/24 07:00 01/08/24 03:44 Nasal Cannula 2 Laboratory Results Cardiac Enzymes 01/08/24 Range/Units 07:04 AST 20 (13-39) U/L CBC 01/08/24 Range/Units 07:04 WBC 7.70 (4.8-10.8) K/ul RBC 2.66 L (4.20-5.40) M/uL Hgb 8.6 L (12.0-16.0) g/dl Hct 26.0 L (37.0-47.0) % Plt Count 204 (130-400) K/uL Comprehensive Metabolic Panel 01/08/24 Range/Units 07:04 Sodium 141 (136-145) mmol/L Potassium 4.4 D (3.5-5.1) mmol/L Chloride 112 H (98-107) mmol/L Carbon Dioxide 27 (21-32) mmol/L BUN 26 H (6-23) mg/dl Creatinine 1.30 H (0.6-1.2) mg/dl Glucose 83 (70-99(Fasting)) mg/dl Calcium 7.4 L (8.6-10.3) mg/dl AST 20 (13-39) U/L ALT 10 (7-52) U/L Alkaline Phosphatase 112 H (34-104) U/L Total Protein 3.9 L (6.0-8.3) gm/dl Albumin 1.7 L (3.4-5.0) gm/dl Intake and Output 01/08/24 01/08/24 01/08/24 06:59 14:59 22:59 Intake Total 140 / 2055 600 / 600 Balance 140 / 1905 600 / 600 Intake: Oral 140 / 1800 600 / 600 Other: # Unmeasured Voids 2 Weight 64.6 kg 64.6 kg Weight Measurement Method Built in [facility] Patient Weight 01/09/24 06:59 Weight 64.6 kg Diagnostic Findings Echocardiogram 10/31/2023 LVEF 55-60% grade I diastolic dysfunction status post TAVR the gradient is normal for this prosthetic aortic valve no significant AI moderate mitral annular calcification mild to moderate MR (1) GI bleed GI bleed type/associated pathology: unspecified gastrointestinal hemorrhage type Qualified Code(s): K92.2 - Gastrointestinal hemorrhage, unspecified (6) Coronary artery disease Associated angina: without angina Coronary Disease-Associated Artery/Lesion type: [place] artery [place] vs. transplanted heart: [place] heart Qualified Code(s): I25.10 - Atherosclerotic heart disease of [place] coronary artery without angina pectoris
--- NOTE | 2024-01-08 15:13 | Electrocardiogram Report ---
Test Reason : Blood Pressure : / mmHG Vent. Rate : 107 BPM Atrial Rate : 107 BPM P-R Int : 000 ms QRS Dur : 130 ms QT Int : 390 ms P-R-T Axes : 000 -07 183 degrees QTc Int : 520 ms Sinus tachycardia Left bundle branch block Abnormal ECG When compared with ECG of 02-JAN-2024 13:09, Vent. rate has increased BY 44 BPM Confirmed by Kahlil Burks ([id number]) on 01/08/2024 3:12:36 PM Referred By: REFERRED SELF Confirmed By:Kahlil Burks
[2024-01-09 09:07] LABS: Hemoglobin 8.8 g/dl (12.0-16.0); Mean Corpuscular Hgb Conc 31.4 g/dL (32.0-36.0); Mean Corpuscular Volume 101.8 fL (80.0-100.0); Mean Platelet Volume 10.1 fL (9.4-12.4); Platelet Count 218 K/uL (130-400); RDW Coefficient of Variation 18.6 % (11.5-14.5); RDW Standard Deviation 70.5 fL (36.4-46.3); Red Blood Count 2.75 M/uL (4.20-5.40); White Blood Count 8.04 K/ul (4.8-10.8)
[2024-01-09 09:32] LABS: Albumin Level 1.9 gm/dl (3.4-5.0); Bilirubin,Total 0.4 mg/dl (0.2-1.0); Calcium 7.6 mg/dl (8.6-10.3); Magnesium 2.2 mg/dl (1.7-2.4); Potassium 4.3 mmol/L (3.5-5.1)
[2024-01-09 09:38] LABS: Albumin Globulin Ratio 0.8 (0.9-2); BUN Creatinine Ratio 17.8 (10-20); Creatinine Clr Calc Pharmacy 27.1 ml/min; Est GFR (African American) 43.1 ml/min; Est GFR (Non-African American) 37.2 ml/min; Globulin 2.4 gm/dl (2.5-4.0); Phosphorus 2.7 mg/dl (2.5-4.9); Total Protein 4.3 gm/dl (6.0-8.3)
--- NOTE | 2024-01-09 13:34 | Hospitalist Progress Note ---
Date of Service January 09, 2024 Assessment & Plan (1) Anemia: (2) GI bleed: (3) MISAEL (acute kidney injury): (4) Elevated troponin: (5) UTI (urinary tract infection): (6) COPD (chronic obstructive pulmonary disease): (7) Chronic hypoxic respiratory failure: (8) Paroxysmal atrial fibrillation: (9) HTN (hypertension): (10) Dyslipidemia: (11) Hip pain, left: (12) Depression: Plan Patient is an 88 year old female with PMHx significant for HTN, HLD, atrial fibrillation, COPD, chronic hypoxic hypercapnic respiratory failure, CKD III, depression who presented to the ER with c/o abnormal labs with Hgb: 6.9. Acute Blood Loss Anemia Possible GI bleed hx of Gastric ulcers Presented from [facility] for noted hgb of 6.9 On arrival in ED, hgb 8.1 on repeat Possible GI bleed, pt with previous EGD in chart from 2022 noting gastric ulcers +heme positive stool in ER In ER given Protonix IV Held home Eliquis and aspirin Iron levels noted to be low Anemia appears macrocytic, b12 and folate levels normal/supplemented GI consulted, appreciate recs -continue po protonix 40mg BID -Continue current therapy and supportive care -will consider EGD if symptoms worsen or overt GI bleeding noted, notes will likely not manager change Continue IV protonix Trend H/H and transfuse as needed IV Venofer Continue to monitor 01/03- hgb 7.1, per recs of nephrology, transfused 1U pRBC with IV Lasix 40mg. Repeat H/H pending 01/04- pt feeling better, hgb 9.5 to 8.5 today post transfusion. 01/05-Stable, Pt/OT reordered 01/06- hgb low in AM at 7.7 discussed with nephrology, rechecked H/H and was 8.9. 01/07- hgb stable >8 Paroxysmal atrial fibrillation Anticoagulated on Eliquis, currently on hold in setting of above per Cardiology risk/benefit Was in sinus rhythm, however on 01/07 noted runs of atrial tachycardia/a fib on telemetry Pt currently on amiodarone 200mg daily, metoprolol succinate 12.5mg BID -noted that both metorpolol doses were held the day before for parameters cardiology consulted, appreciate further recs - parameters for metoprolol adjusted HTN (hypertension) BP on lower end on admission Held amlodipine but continued metoprolol succ 12.5mg BID Home Lasix also on hold (see below) Continue to monitor CAD Calcific aortic stenosis, status post TAVR Aspirin currently on hold Continue statin for CAD CHF On low dose Lasix 20 mg MWF only Home lasix currently on hold in setting of MISAEL (see below) and hypotension Resume as able Appreciate cardiology recs MISAEL (acute kidney injury) MISAEL on CKD III BUN: 51, Cr: 2.6. Baseline Cr: ~1.2 Gentle IVF Hold nephrotoxic agents when possible Monitor renal function nephrology consulted, appreciate recs Improving Elevated troponin Troponin: 17-->15 EKG: sinus rhythm, t wave inversions inferior leads, chronic LBBB Possible demand ischemia in setting of anemia Denies CP, current SOB Flat, doubt ACS UTI (urinary tract infection) Recent UTI on Cipro to 250 mg twice daily x 7 days, started on on evening of 12/27/2023. Hold home Cipro. Will finish course with Rocephin Repeat UA unremarkable, received 2 doses of rocephin Discontinued on 01/02 Hip pain, left Reported left hip pain. Has been on scheduled Tylenol, as needed oxycodone for severe pain at [facility] Continue scheduled Tylenol, as needed oxycodone severe pain COPD (chronic obstructive pulmonary disease) Chronic hypoxic respiratory failure On chronic 3 L oxygen via nasal cannula No signs of acute exacerbation currently Continue home supplemental oxygen, goal 90% Continue home inhalers, guaifenesin and as needed nebs Currently at baseline Dyslipidemia Continue atorvastatin Depression Continue fluoxetine DVT Prophylaxis: SCDs in setting of acute GI bleed DNR/DNI as per discussion with pt Dispo: PT/OT ordered, [facility] bed[facility] Admission and Anticipated Discharge Date Admission Date: January 02, 2024 Subjective Pt seen in follow up of anemia, Afib Seen by cardiology yesterday, eliquis to stay on hold, metoprolol parameters decreased Currently sitting up in chair in NAD, family at the bedside Pt feels well overall, denies any chest pain or shortness of breath Reports some abdominal discomfort but says it's much improved from previous Review of Systems Review of Systems: All systems reviewed & are unremarkable except as noted in Subjective Physical Exam Physical Exam: General: WD/WN elderly F in NAD HEENT: NC/AT CV: RRR Resp: CTAB, no increased effort of breathing Abdomen: Soft, mildly tender diffusely, but mainly in epigastric area Extremities: + LE edema Neuro: awake, alert, answers appropriately, speech fluent, no facial asymmetry, moves extremities Psych: Appropriate mood and affect Skin: warm, dry Results & Data Results & Data Vital Signs (Past 12 Hours) Vital Signs Temp Pulse Pulse Resp BP Pulse Ox O2 Del Method 01/09/24 11:35 36.7 C 88 20 93/59 L 94 Room Air 01/09/24 10:59 01/09/24 07:51 36.6 C 85 20 116/66 97 Room Air 01/09/24 07:05 64 01/09/24 03:25 36.6 C 95 H 20 101/58 L 95 Nasal Cannula O2 Flow Rate 01/09/24 11:35 01/09/24 10:59 2 01/09/24 07:51 01/09/24 07:05 01/09/24 03:25 2 Laboratory Results 01/09/24 Range/Units 08:24 WBC 8.04 (4.8-10.8) K/ul RBC 2.75 L (4.20-5.40) M/uL Hgb 8.8 L (12.0-16.0) g/dl Hct 28.0 L (37.0-47.0) % MCV 101.8 H (80.0-100.0) fL MCH 32.0 (25.0-34.0) pg MCHC 31.4 L (32.0-36.0) g/dL RDW Std Deviation 70.5 H (36.4-46.3) fL RDW Coeff of [place] 18.6 H (11.5-14.5) % Plt Count 218 (130-400) K/uL MPV 10.1 (9.4-12.4) fL Sodium 139 (136-145) mmol/L Potassium 4.3 (3.5-5.1) mmol/L Chloride 110 H (98-107) mmol/L Carbon Dioxide 27 (21-32) mmol/L Anion Gap 2 L (3-11) BUN 23 (6-23) mg/dl Creatinine 1.29 H (0.6-1.2) mg/dl Est Cr Clr Drug Dosing 27.1 ml/min Est GFR ( Amer) 43.1 ml/min Est GFR (Non-Af Amer) 37.2 ml/min BUN/Creatinine Ratio 17.8 (10-20) Glucose 77 (70-99(Fasting)) mg/dl Calcium 7.6 L (8.6-10.3) mg/dl Phosphorus 2.7 (2.5-4.9) mg/dl Magnesium 2.2 (1.7-2.4) mg/dl Total Bilirubin 0.4 (0.2-1.0) mg/dl AST 12 L (13-39) U/L ALT 10 (7-52) U/L Alkaline Phosphatase 119 H (34-104) U/L Total Protein 4.3 L (6.0-8.3) gm/dl Albumin 1.9 L (3.4-5.0) gm/dl Globulin 2.4 L (2.5-4.0) gm/dl Albumin/Globulin Ratio 0.8 L (0.9-2) Medications Administered Current Inpatient Medications Acetaminophen (Acetaminophen 325 Mg Tab) 650 mg PO Q4H PRN PRN Reason: Pain or Fever Stop: 02/01/24 18:30 Albuterol (Albuterol Hfa 8 Gm Inhaler (Combivent Respimat P&T Subs)) 1 puffs INH QID PRN; Protocol PRN Reason: SHORTNESS OF BREATH/WHEEZING Stop: 02/01/24 18:41 Amiodarone HCl (Amiodarone 200 Mg Tab) 200 mg PO QAM TONG Stop: 02/02/24 08:59 Last Admin: 01/09/24 10:18 Dose: 200 mg Atorvastatin Calcium (Atorvastatin 10 Mg Tab) 10 mg PO HS [facility] Stop: 02/01/24 20:59 Last Admin: 01/08/24 19:55 Dose: 10 mg Fluoxetine HCl (Fluoxetine Hcl 10 Mg Cap) 10 mg PO QAM TONG Stop: 02/02/24 08:59 Last Admin: 01/09/24 10:18 Dose: 10 mg Fluticasone Furoate (Fluticasone Furoate 100mcg 14 Puffs/Inhaler) 1 puffs INH DAILY TONG Stop: 02/02/24 08:59 Last Admin: 01/09/24 10:17 Dose: 1 puffs Guaifenesin (Guaifenesin 600 Mg Tabcr) 600 mg PO AMHS [facility] Stop: 02/01/24 20:59 Last Admin: 01/09/24 10:15 Dose: 600 mg Ipratropium [place] (Ipratropium Hfa Inhaler (Combivent Respimat P&T Subs)) 1 puffs INH QID PRN; Protocol PRN Reason: SHORTNESS OF BREATH/WHEEZING Stop: 02/01/24 18:41 Metoprolol Succinate (Metoprolol Succ 25mg Ext Rel Tab) 12.5 mg PO [facility] Stop: 02/01/24 20:59 Last Admin: 01/09/24 10:15 Dose: 12.5 mg Mirtazapine (Mirtazapine Tab 15 Mg Tab) 15 mg PO [facility] Stop: 02/01/24 20:59 Last Admin: 01/08/24 19:55 Dose: 15 mg Ondansetron HCl (Ondansetron Inj 2 Mg/Ml 2 Ml Vial) 4 mg IV Q6H PRN PRN Reason: Nausea Stop: 02/01/24 18:30 Last Admin: 01/04/24 03:20 Dose: 4 mg Oxycodone HCl (Oxycodone Hcl Ir 5 Mg Tab (Immediate Release)) 5 mg PO Q6H PRN PRN Reason: Severe Pain (Scale Score 7-10) Stop: 01/16/24 18:30 Last Admin: 01/08/24 19:55 Dose: 5 mg Pantoprazole Sodium (Pantoprazole 40 Mg Tab) 40 mg PO BID [facility] Stop: 02/05/24 08:59 Last Admin: 01/09/24 10:15 Dose: 40 mg Umeclidinium/Vilanterol (Umeclidinium/Vilanterol 62.5/25mcg 7 Puffs/Inhaler) 1 puffs INH DAILY [facility] Stop: 02/02/24 08:59 Last Admin: 01/09/24 10:17 Dose: 1 puffs
[2024-01-09] MEDS: ACETAMINOPHEN 325 MG TAB PO PRN (13:46)
--- NOTE | 2024-01-09 16:57 | Cardiology Progress Note ---
Date of Service January 09, 2024 Assessment & Plan (1) GI bleed: (2) Anemia due to blood loss: (3) Elevated troponin: (4) Paroxysmal atrial fibrillation: (5) Chronic heart failure with preserved ejection fraction (HFpEF): (6) Coronary artery disease: (7) S/P TAVR (transcatheter aortic valve replacement): (8) COPD (chronic obstructive pulmonary disease) with emphysema: Plan IMPRESSION: Medically complex 88 year old female presents with symptomatic blood loss anemia with a presenting hgb of 6.9. On Eliquis due to history of PAF in the setting of PNA and anaplasmosis. Eliquis was placed on hold at time of admission Also carries history of nonobstructive CAD, TAVR, TIA-- on ASA 81 mg daily PLAN: PAF: Review of telemetry today shows a decrease in the number of incidents of AT vs Afib. Her beta zainab parameters were also adjusted to ensure she is receiving her medications as there were several documented "held" doses due to low blood pressures. Patient is currently on Amiodarone for rhythm control and Toprol xl for rate c ontrol. Givenher lower blood pressure, not a lot of room to increase therapies at this time. History of traumatic subarachnoid hemorrhage of DAPT. -Given symptomatic anemia and active GIB risk of continuation of Eliquis outweighs the benefit. Okay to hold at this time. Patient in agreement. This was again discussed with patient today in light of recurrence of A-fib, agree to continue to hold Eliquis at this time. -Continue to monitor on telemetry while inpatient -K goal of 4.0 and mag goal of 2.0, replace as needed. Chronic HFpEF: Patient appears mildly hypervolemic on exam, although unclear what her baseline looks like. Normally maintains on low dose Lasix 20 mg MWF only which is on hold at this time. Received IVF due to renal dysfunction. Serum cr remains elevated above baseline (2.6) Appreciate nephrology recommendations. -continue 2g sodium restriction -Strict I&O and daily weights. CAD: Nonobstructive per cath 01/2019 Stable, no angina. Elevated troponin likely in the setting of demand given symptomatic blood loss anemia and MISAEL. -Resume ASA when clinically stable. -Continue Statin S/p TAVR: Status post TAVR (# 23 mm Aldridge Brice S3 valve), 05/16/2019 TAVR gradients stable per most recent echo 10/2023 Left bundle branch block noted post TAVR 05/27/2019. -Resume ASA when clinically stable. GIB/Anemia: Hgb 6.9>>8.1>>7.5>>7.7 On PPI Management per primary service and GI-- appreciate GI recommendations. Continue current medication regimen with close monitoring on telemetry, will not resume Eliquis at this time and monitor for Hgb to stabilize in the setting of an acute GI bleed. No changes to Amiodarone or toprol xl at this time given brief episodes of A-fib and in the setting of low blood pressures. Case has been discussed with Dr. Singh. Further recommendations regarding plan of care as per his assessment. I spent a total of 30 minutes on the date of service in preparation, delivery, documentation of the care provided to the patient excluding any time spent in the performance of separately billed services. ERWIN [facility] Admission and Anticipated Discharge Date Admission Date: January 02, 2024 Supervising Physician Co-Signing Physician Notes Attending attestation: Case reviewed with the advanced practitioner. I have personally performed a history and physical examination on the patient. I have reviewed the advanced practitioner's documentation on the date of service referenced in note, and I agree with, and take responsibility for the plan of care. Plan to hold anticoagulation indefinitely. I spent a total of 20 minutes coordinating, documenting, and providing care for this patient excluding time spent in the performance of separately billed services or time spent by another provider. Mark Singh, Subjective 01/09/2024: patient seen and examined today in follow up. Resting comfortably in bed without complaint. Labs, vitals, telemetry, diagnostics and documentation reviewed. REview of telemetry demonstrates SR with PAC/PVC episode of PAT and single episode of A-fib. patient is now receiving her metoprolol, hold parameters were changed. Review of Systems Review of Systems: All systems reviewed & are unremarkable except as noted in HPI & below Physical Exam Constitutional: well developed and well nourished; no acute distress Neck: normal visual inspection and trachea midline Respiratory: normal respiratory effort, lungs clear to auscultation Cardiovascular: Rate/Rhythm: regular rate and regular rhythm Heart Sounds: normal S1 and normal S2; no murmur Vessels: dorsalis pedis pulses present; no JVD Extremities: + edema (+1 BLE) Skin: no rashes, warm and dry Psychiatric: A+Ox3, euthymic affect Results & Data Vital Signs (Past 12 Hours) Vital Signs Temp Pulse Pulse Resp BP Pulse Ox O2 Del Method 01/09/24 15:36 37.0 C 122 H 20 93/57 L 98 Nasal Cannula 01/09/24 11:35 36.7 C 88 20 93/59 L 94 Room Air 01/09/24 10:59 01/09/24 07:51 36.6 C 85 20 116/66 97 Room Air 01/09/24 07:05 64 O2 Flow Rate 01/09/24 15:36 1 01/09/24 11:35 01/09/24 10:59 2 01/09/24 07:51 01/09/24 07:05 (1) GI bleed GI bleed type/associated pathology: unspecified gastrointestinal hemorrhage type Qualified Code(s): K92.2 - Gastrointestinal hemorrhage, unspecified (6) Coronary artery disease Associated angina: without angina Coronary Disease-Associated Artery/Lesion type: [place] artery [place] vs. transplanted heart: [place] heart Qualified Code(s): I25.10 - Atherosclerotic heart disease of [place] coronary artery without angina pectoris
[2024-01-10 08:02] LABS: Hematocrit (blood only) 30.6 % (37.0-47.0); Mean Corpuscular Hemoglobin 30.7 pg (25.0-34.0); Mean Corpuscular Hgb Conc 29.4 g/dL (32.0-36.0); Mean Corpuscular Volume 104.4 fL (80.0-100.0); Mean Platelet Volume 10.4 fL (9.4-12.4); Platelet Count 238 K/uL (130-400); RDW Coefficient of Variation 18.2 % (11.5-14.5); RDW Standard Deviation 70.1 fL (36.4-46.3); Red Blood Count 2.93 M/uL (4.20-5.40); White Blood Count 9.52 K/ul (4.8-10.8)
[2024-01-10 08:25] LABS: BUN Creatinine Ratio 17.4 (10-20); Calcium 7.7 mg/dl (8.6-10.3); Creatinine Clr Calc Pharmacy 25.5 ml/min; Est GFR (African American) 39.7 ml/min; Est GFR (Non-African American) 34.3 ml/min; Magnesium 2.3 mg/dl (1.7-2.4); Phosphorus 3.1 mg/dl (2.5-4.9); Potassium 4.6 mmol/L (3.5-5.1)
--- NOTE | 2024-01-10 10:25 | Discharge Summary ---
Date of Service January 10, 2024 Admission HPI Per Admitting Provider Patient is 88 year old female with PMH HTN, HLD, atrial fibrillation, COPD, chronic hypoxic hypercapnic respiratory failure, CKD III, depression presented to ER with c/o abnormal labs. History obtained from patient, inpatient and outpatient chart review. Patient currently at [facility]. Reported Hgb: 6.9 today and patient referred to ER for further evaluation. Reports having intermittent pain across mid abdomen after eating sometimes pressure type pain sometimes sharp but is unable to state duration of symptoms. She reports feeling tired. States chronic SOB and is unsure if worse. Doesn't think has been having melena or hematochezia. States fell at [facility] a couple of weeks ago. Having some pain to left upper leg that radiates up to left hip. using walker. States some positional dizziness. Denies fever/chills, diaphoresis, N/V/D/C, LESTER, syncope, vision changes, neck pain, CP, orthopnea, palpitations, cough, otalgia, rhinorrhea, paresthesias, increased weakness, increased extremity edema, rashes, urinary symptoms. Admission Exam Per Admitting Provider GENERAL APPEARANCE: AxOx2-3, generally well-appearing female, no acute distress. HEENT: NC, AT. MMM. EOMI, clear conjunctiva, oropharynx clear. NECK: Supple without lymphadenopathy. No stiffness or restricted ROM. HEART: Normal rate and regular rhythm, EVELYN+ LUNGS: CTAB generally diminished on NC 3L baseline ABDOMEN: Soft, nondistended with good bowel sounds heard. tender in epigastrium to palpation BACK: No CVAT, no obvious deformity. EXTREMITIES: Without cyanosis, clubbing or edema. NEUROLOGICAL: Grossly nonfocal. Alert and oriented, moving all 4 extremities. CN not formally tested but appear grossly intact. Skin: Warm and dry without any rash. Principal Diagnosis Anemia MISAEL Discharge Exam General: WD/WN elderly F in NAD on suppl. O2 HEENT: NC/AT CV: RRR Resp: CTAB, no increased effort of breathing Abdomen: Soft, mildly tender diffusely, but mainly in epigastric area Extremities: + LE edema Neuro: awake, alert, answers appropriately, speech fluent, no facial asymmetry, moves extremities Psych: Appropriate mood and affect Skin: warm, dry Discharge Data Allergies Allergy/AdvReac Type Severity Reaction Status Date / Time Sulfa (Sulfonamide Allergy Severe SHORT OF Verified 01/02/24 16:21 Antibiotics) BREATH, ITCHING PER [facility] atenolol AdvReac Intermediate STOMACH Verified 01/02/24 16:21 PAIN PER [facility] lisinopril AdvReac Intermediate HYPERKALEMIA Verified 01/02/24 16:21 PER [facility] Consultations 01/02/24 15:19 ED Decision to Admit Stat 01/02/24 16:08 Consult Gastroenterology Routine 01/02/24 19:23 Consult Cardiology Routine Consult Nephrology Routine Ordered Studies 01/02/24 13:36 CT abd pelvis wo con Stat FINDINGS: Small right and trace left pleural effusions. Peripheral consolidation within the right lung base favors atelectasis. The left lung base is clear. An aortic valve prosthesis is noted. No pneumoperitoneum. No pneumatosis. There are bilateral total hip arthroplasties. L3-L5 posterior decompression and fusion with pedicle screws and rods. Advanced degenerative changes within the upper lumbar spine. Mild levoscoliosis of the lumbar spine. No acute fractures. Small fat-containing periumbilical hernia. Mild body wall edema. Prior cholecystectomy. The unenhanced liver, spleen, and pancreas are unremarkable. Mild bilateral adrenal gland hyperplasia is noted. Bilateral renal hypodense lesions favor cysts. No hydronephrosis. Mild dilatation of the common bile duct is likely due to the patient's postcholecystectomy state and age. Calcified plaque within the normal caliber abdominal aorta. No retroperitoneal or pelvic lymphadenopathy. No pelvic free fluid. The deep pelvic structures are suboptimally assessed due to the metallic artifact. The bladder appears unremarkable. Prior hysterectomy. Suboptimal evaluation for bowel pathology due to the lack of intravenous and oral contrast. However, there is no definite bowel wall thickening or obstruction. Colonic diverticulosis. No evidence for acute diverticulitis. The appendix is surgically absent. IMPRESSION: 1. No bowel wall thickening or obstruction. 2. Colonic diverticulosis. No evidence for acute diverticulitis. 3. No hydronephrosis. 4. Postoperative changes as described above. 5. Small right and trace left pleural effusions. 6. Additional findings as described above. Hospital Course (1) Anemia: (2) GI bleed: (3) MISAEL (acute kidney injury): (4) Elevated troponin: (5) UTI (urinary tract infection): (6) COPD (chronic obstructive pulmonary disease): (7) Chronic hypoxic respiratory failure: (8) Paroxysmal atrial fibrillation: (9) HTN (hypertension): (10) Dyslipidemia: (11) Hip pain, left: (12) Depression: Plan Patient is an 88 year old female with PMHx significant for HTN, HLD, atrial fibrillation, COPD, chronic hypoxic hypercapnic respiratory failure, CKD III, depression who presented to the ER with c/o abnormal labs with Hgb: 6.9. Acute Blood Loss Anemia Possible GI bleed hx of Gastric ulcers Presented from [facility] for noted hgb of 6.9 On arrival in ED, hgb 8.1 on repeat Possible GI bleed, pt with previous EGD in chart from 2022 noting gastric ulcers +heme positive stool in ER In ER given Protonix IV Held home Eliquis and aspirin Iron levels noted to be low Anemia appears macrocytic, b12 and folate levels normal/supplemented GI consulted, appreciate recs -continue po protonix 40mg BID -Continue current therapy and supportive care -will consider EGD if symptoms worsen or overt GI bleeding noted, 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 Repeat H/H pending 01/04- pt feeling better, hgb 9.5 to 8.5 today post transfusion. 01/05-Stable, Pt/OT reordered 01/06- hgb low in AM at 7.7 discussed with nephrology, rechecked H/H and was 8.9. 01/07- hgb stable >8 01/09 hgb 9.0 Paroxysmal atrial fibrillation Anticoagulated on Eliquis, currently on hold in setting of above per Cardiology risk/benefit Was in sinus rhythm, however on 01/07 noted runs of atrial tachycardia/a fib on telemetry Pt currently on amiodarone 200mg daily, metoprolol succinate 12.5mg BID -noted that both metorpolol doses were held the day before for parameters cardiology consulted, appreciate further recs - parameters for metoprolol adjusted HTN (hypertension) BP on lower end on admission Held amlodipine but continued metoprolol succ 12.5mg BID Home Lasix also on hold (see below) Continue to monitor CAD Calcific aortic stenosis, status post TAVR Aspirin currently on hold Continue statin for CAD CHF On low dose Lasix 20 mg MWF only Home lasix currently on hold in setting of MISAEL (see below) and hypotension Resume as able Appreciate cardiology recs MISAEL (acute kidney injury) MISAEL on CKD III BUN: 51, Cr: 2.6. Baseline Cr: ~1.2 Gentle IVF Hold nephrotoxic agents when possible Monitor renal function nephrology consulted, appreciate recs Improved, current cr 1.3 Elevated troponin Troponin: 17-->15 EKG: sinus rhythm, t wave inversions inferior leads, chronic LBBB Possible demand ischemia in setting of anemia Denies CP, current SOB Flat, doubt ACS UTI (urinary tract infection) Recent UTI on Cipro to 250 mg twice daily x 7 days, started on on evening of 12/27/2023. Hold home Cipro. Will finish course with Rocephin Repeat UA unremarkable, received 2 doses of rocephin Discontinued on 01/02 Hip pain, left Reported left hip pain. Has been on scheduled Tylenol, as needed oxycodone for severe pain at [facility] Continue scheduled Tylenol, as needed oxycodone severe pain COPD (chronic obstructive pulmonary disease) Chronic hypoxic respiratory failure On chronic 3 L oxygen via nasal cannula No signs of acute exacerbation currently Continue home supplemental oxygen, goal 90% Continue home inhalers, guaifenesin and as needed nebs Currently at baseline Dyslipidemia Continue atorvastatin Depression Continue fluoxetine Total Time Total Time Spent Total Time Spent (In Minutes): 40 Discharge Plan Discharge Items Patient Disposition: Transfer [facility] Reason For Visit: ANEMIA Discharge Diagnosis: Anemia MISAEL Activity: Per Instructions section Non-emergency contact: Primary Care Provider Call non-emergency contact if: you have any medication questions and your symptoms worsen Follow-up/Referrals: [facility] [Primary Care Provider] - Diet: Heart Healthy Addtl Attending Provider Instructions: Follow up with your primary care physician within 1 week. Eliquis was stopped. Take pantoprazole 40 mg twice a day. For now, do not take aspirin and discuss with your physician if/ when you should restart this medication. Continue taking metoprolol, and amiodarone. Do not take amlodipine. Pending Studies at Discharge: No Stand-Alone Forms: [facility] [employer] Skilled Items Patient informed of condition?: Yes DNR: Yes Discharge Level of Care: Skilled Communicable Disease: No Discharge Prognosis: Stable Lines: None Urinary Catheter: No Medications and DC Order Prescriptions: New pantoprazole 40 mg Tablet,Delayed Release (Dr/Ec) 40 mg PO BID Qty: 60 0RF Continued (DME) Oxygen Home E0424 Liters Per Minute See Rx Instructions .MEDSUPPLY Qty: 1 0RF Rx Instructions: Home Oxygen concentrator with portability, test for conserving device. 3LMP via n/c at rest and 3LPM via n/c with exertion; LUIS A 99. albuterol sulfate [Ventolin HFA] 90 mcg/actuation HFA aerosol inhaler 2 inh inhalation Q6H PRN (Reason: shortness of breath or wheezing) Qty: 8.5 4RF Trelegy Ellipta 100-62.5-25 mcg blister with device 1 inh inhalation QAM Qty: 60 5RF meclizine 25 mg Tablet,Chewable 25 mg PO TID PRN (Reason: Dizziness) PreserVision AREDS-2 [id number] Capsule 1 tab PO [facility] ondansetron 4 mg Tablet,Disintegrating 4 - 8 mg PO Q8H PRN (Reason: Nausea) fluoxetine 10 mg Tablet 10 mg PO QAM amoxicillin 500 mg Capsule 2,000 mg PO DIRECTED PRN (Reason: 1 HR PRIOR TO DENTAL PROCEDURES) acetaminophen [Tylenol] 325 mg Tablet 650 mg PO TID MDD 3G guaifenesin [Mucinex] 600 mg Tablet Extended Release 12hr 600 mg PO [facility]HS ipratropium-albuterol 20-100 mcg/actuation Mist 1 puff INHALATION QID PRN (Reason: NEEDED PER [facility]) amiodarone 200 mg tablet 200 mg PO QAM ergocalciferol (vitamin D2) 1,250 mcg (50,000 unit) capsule 50,000 unit PO WK Rx Instructions: MONDAYS zolpidem [Ambien] 5 mg Tablet 5 mg PO HS PRN (Reason: Sleep) atorvastatin 10 mg Tablet 10 mg PO HS Qty: 30 0RF metoprolol succinate 25 mg tablet extended release 24 hr 12.5 mg PO AMHS pantoprazole 20 mg tablet,delayed release (DR/EC) 20 mg PO AMPM mirtazapine 15 mg Tablet 15 mg PO HS oxycodone 5 mg Tablet 10 mg PO Q6H PRN (Reason: Severe Pain (Scale Score 7-10)) Rx Instructions: Pain 9-10 on pain scale diclofenac sodium [Voltaren] 1 % Gel 4 g TOPICAL QID PRN (Reason: Pain) Rx Instructions: apply to left hip Held aspirin 81 mg Tablet,Delayed Release (Dr/Ec) 81 mg PO QAM Hold Instructions: Resume on 01/14/24. Discontinued amlodipine 5 mg tablet 5 mg PO QAM Eliquis 5 mg tablet 5 mg PO AMHS Hold Instructions: For thoracentesis ciprofloxacin HCl [Cipro] 250 mg Tablet 250 mg PO BID Rx Instructions: on for UTI. started 12/27/23 PM. 7 day course Discharge Orders: Discharge Order (Routine); Ordered 01/10/24 Ordered By: Leo Man Admission Data Admit Date/Time: 01/02/24 16:03 Attending Provider: Leo Man Admit Provider: Brittanie Cleary Primary Care Provider: [facility] Other Providers: Jerel Stoll; Brittanie Cleary; Larry Miranda
--- NOTE | 2024-01-10 16:53 | Cardiology Progress Note ---
Date of Service January 10, 2024 Assessment & Plan (1) GI bleed: (2) Anemia due to blood loss: (3) Elevated troponin: (4) Paroxysmal atrial fibrillation: (5) Chronic heart failure with preserved ejection fraction (HFpEF): (6) Coronary artery disease: (7) S/P TAVR (transcatheter aortic valve replacement): (8) COPD (chronic obstructive pulmonary disease) with emphysema: (9) Left bundle branch block: Plan Patient reassessed due to concerns of bradycardia. Patient noted to have left bundle branch block, which is chronic, found on serial EKGs dating back to 2020, no left bundle branch block on EKG performed in 2019. Today at 11:21 AM, patient with transient bradycardia, several junctional beats with transient heart rates in the upper 30s to 40s. Patient resting in bed, sleeping, with no associated symptoms. Patient with borderline tachycardia-bradycardia syndrome with episodes of atrial fibrillation, and generalized slow heart rates otherwise. She is tolerating low-dose metoprolol and low-dose amiodarone. At present, I think it is reasonable to continue these medications, and even the fact that the bradycardia has only occurred with rest while sleeping, no definite indication for pacemaker at present. Patient to remain off of anticoagulation due to GI bleeding. I agree with plan to resume aspirin on 01/14/2024. Remain off of Eliquis. Patient stable for discharge. Admission and Anticipated Discharge Date Admission Date: January 02, 2024 Subjective Patient seen in cardiology follow-up. No complaints. Physical Exam Constitutional: no acute distress Neck: normal visual inspection and trachea midline Respiratory: normal respiratory effort; no respiratory distress and no cough Auscultation: + diminished lung sounds and + rales; no rhonchi and no wheezes Cardiovascular: Rate/Rhythm: regular rate and regular rhythm Heart Sounds: normal S1, normal S2 and + murmur (+2/6 systolic murmur) Extremities: + edema (Trace LE edema) Gastrointestinal (Abdomen): Percussion/Palpation: + abdomen tender and abdomen soft Skin: no rashes, warm and dry Neurologic: PERRL, EOMI, accommodation nl, no face palsy, no dysarthria Psychiatric: Orientation: alert and oriented x 3 Results & Data Vital Signs (Past 12 Hours) Vital Signs Temp Pulse Pulse Resp BP BP Pulse Ox 01/10/24 11:45 36.4 C L 58 L 18 99/56 L 97 01/10/24 10:44 37.0 C 71 20 113/57 L 116/65 97 01/10/24 08:54 01/10/24 07:55 37.0 C 71 20 113/57 L 97 01/10/24 07:18 67 O2 Del Method O2 Flow Rate 01/10/24 11:45 Nasal Cannula 1.5 01/10/24 10:44 01/10/24 08:54 Nasal Cannula 2 01/10/24 07:55 Nasal Cannula 1.5 01/10/24 07:18 Laboratory Results CBC 01/10/24 Range/Units 07:20 WBC 9.52 (4.8-10.8) K/ul RBC 2.93 L (4.20-5.40) M/uL Hgb 9.0 L (12.0-16.0) g/dl Hct 30.6 L (37.0-47.0) % Plt Count 238 (130-400) K/uL Comprehensive Metabolic Panel 01/10/24 Range/Units 07:20 Sodium 139 (136-145) mmol/L Potassium 4.6 (3.5-5.1) mmol/L Chloride 109 H (98-107) mmol/L Carbon Dioxide 29 (21-32) mmol/L BUN 24 H (6-23) mg/dl Creatinine 1.38 H (0.6-1.2) mg/dl Glucose 76 (70-99(Fasting)) mg/dl Calcium 7.7 L (8.6-10.3) mg/dl Intake and Output 01/10/24 01/10/24 01/10/24 06:59 14:59 22:59 Intake Total 200 / 780 500 / 500 Balance 200 / 780 500 / 500 Intake: Oral 200 / 780 500 / 500 Other: # Unmeasured Voids 1 Weight 65.2 kg 65.2 kg Weight Measurement Method Built in [facility] Patient Weight 01/11/24 06:59 Weight 65.2 kg (1) GI bleed GI bleed type/associated pathology: unspecified gastrointestinal hemorrhage type Qualified Code(s): K92.2 - Gastrointestinal hemorrhage, unspecified (6) Coronary artery disease Coronary Disease-Associated Artery/Lesion type: [place] artery [place] vs. transplanted heart: [place] heart Associated angina: without angina Qualified Code(s): I25.10 - Atherosclerotic heart disease of [place] coronary artery without angina pectoris
== END 2024-01-10 16:46 | DRG 377 ==
LOC: ED 12:40 → SUATTDRO 16:03 → 2N 16:03
DX: R77.8 Other specified abnormalities of plasma proteins; I24.89 Other forms of acute ischemic heart disease; I35.0 Nonrheumatic aortic (valve) stenosis; Z88.8 Allergy status to other drugs, medicaments and biological substances; Z66 Do not resuscitate; M25.552 Pain in left hip; K21.9 Gastro-esophageal reflux disease without esophagitis; I48.0 Paroxysmal atrial fibrillation; Z87.891 Personal history of nicotine dependence; Z79.82 Long term (current) use of aspirin; Z88.2 Allergy status to sulfonamides; N17.0 Acute kidney failure with tubular necrosis; I25.10 Atherosclerotic heart disease of native coronary artery without angina pectoris; J96.12 Chronic respiratory failure with hypercapnia; Z95.2 Presence of prosthetic heart valve; Z86.73 Personal history of transient ischemic attack (TIA), and cerebral infarction without residual deficits; N39.0 Urinary tract infection, site not specified; J96.11 Chronic respiratory failure with hypoxia; I50.32 Chronic diastolic (congestive) heart failure; Z79.01 Long term (current) use of anticoagulants; I13.0 Hypertensive heart and chronic kidney disease with heart failure and stage 1 through stage 4 chronic kidney disease, or unspecified chronic kidney disease; K92.1 Melena; Z99.81 Dependence on supplemental oxygen; D62 Acute posthemorrhagic anemia; Z79.899 Other long term (current) drug therapy; F32.A Depression, unspecified; J43.9 Emphysema, unspecified; N18.30 Chronic kidney disease, stage 3 unspecified; E78.5 Hyperlipidemia, unspecified